=== PATIENT | male | born 1965 | race Caucasian/White ===

== ENCOUNTER 2020-09-25 21:52 | Observation (INO) | payer OTHER, SELFPAY ==
--- NOTE | ~2020-09-25 | XR_ITS ---
EXAMINATION: XR small bowel follow through EXAM DATE: 09/26/2020 18:25 INDICATION: Small bowel dilation and wall thickening . Nausea and vomiting. Possible allergic reactio n or enteritis. Abnormal small bowel on CT scan. TECHNIQUE: Grape Pruner radiograph was acquired. Barium was administered for small bowel exam performed by radiologist Laz Bhatt M.D.. Spot images of the terminal ileum were acquired. Pulsed dose reductio n fluoroscopy was used with fluoroscopic time of 0.2 minutes. The DAP for this procedure was 1.4 Gyc m2. A total of 33 images obtained for the exam. Correlation is made to CT 3 a.m. same day. FINDINGS: Grape Pruner image demonstrates bilateral nephrolithiasis and cholecystectomy clips. There is smal l duodenal diverticulum. Ileal and jejunal fold patterns are normal, no evidence of wall thickening o r mucosal abnormality. There is no small bowel wall thickening or mass effect displacing small bowel . There are no intraluminal filling defects identified. There is no small bowel dilation. Terminal ileum is normal in appearance. Contrast reached the colon 45. IMPRESSION: Small duodenal diverticulum. Otherwise unremarkable exam, which could indicate resolution of previous enteritis or angioedema. Reviewed, dictated and finalized at location A. IMPRESSION: Small duodenal diverticulum. Otherwise unremarkable exam, which cou ld indicate resolution of previous enteritis or angioedema.
--- NOTE | ~2020-09-25 | CT_ITS ---
EXAMINATION: CT abdomen pelvis wo con DATE: 09/26/2020 03:24 INDICATION: Abdominal pain TECHNIQUE: Computed tomography (CT) of the abdomen and pelvis was performed without intravenous contr ast. The dose-length product (DLP) was 536.95 mGy-cm. Automated exposure control and iterative recons truction technique were employed. COMPARISON: 11/16/2017 FINDINGS: Minimal dependent atelectasis is present in the lung bases. The heart size is normal. A sta ble 3 mm subpleural nodule of the left lower lobe is consistent with old granulomatous disease. The g allbladder is surgically absent. The liver, spleen, pancreas, and adrenal glands are normal. There ar e multiple bilateral nonobstructing stones of the kidneys. The largest measures 8 mm on the left. No stones are present in the ureters or bladder. There is no hydronephrosis or hydroureter. No pathologi raul enlarged abdominal or pelvic lymph nodes are identified. There is no free intraperitoneal gas o r evidence of bowel obstruction. There are mildly dilated loops of small bowel in the left abdomen wh ich appear to have associated wall thickening. 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 There is mild lumbar spondylosis. There is mild ci rcumferential wall thickening of the urinary bladder. IMPRESSION: 1. No CT correlate for the patient's symptoms. 2. Bilateral nonobstructing nephrolithiasis. 3. Mild circumferential wall thickening of the urinary bladder, likely chronic outlet obstruction giv en normal urinalysis. 4. Mildly dilated small bowel with apparent wall thickening. Finding is nonspecific with a broad diff erential including drug reaction, angioedema, enteritis, or an infiltrative process such as lymphoma. Small bowel follow-through is recommended. These findings and recommendations were discussed with Judy weir RN on [facility] at 1043 hours on 09/26/2020. Reviewed, dictated and finalized at location B. IMPRESSION: 1. No CT correlate for the patient's symptoms. 2. Bilateral nonobstructing nephrolithiasis. 3. Mild circumferential wall thickening of the urinary bladder, likely chronic outlet obstruction given normal urinalysis. 4. Mildly dilated small bowel with apparent wall thickening. Finding is nonspec ific with a broad differential including drug reaction, angioedema, enteritis, or an infiltrative process such as lymphoma. Small bowel follow-through is larry mmended. These findings and recommendations were discussed with GAEL Daniels on [facility] at 1043 hours on 09/26/2020.
[2020-09-25 21:57] VITALS: BP 103/67; PULSE 114; RESP 16; TEMP 36.8; O2SAT 97
[2020-09-25 22:11] VITALS: BP 103/67; PULSE 113; RESP 22; O2SAT 98
--- NOTE | 2020-09-25 22:20 | ED.ALLEREA ---
HPI - Allergic Reaction General Chief complaint: Allergic Reaction <Tomi Gutierrez MD - Last Filed: 09/25/20 23:45> Stated complaint: ALLERGIC REACTION, RASH <Tomi Gutierrez MD - Last Filed: 09/25/20 23:45> Time Seen by Provider: 09/25/20 21:58 <Tomi Gutierrez MD - Last Filed: 09/25/20 23:45> Source: patient and family <Tomi Gutierrez MD - Last Filed: 09/25/20 23:45> Limitations: no limitations <Tomi Gutierrez MD - Last Filed: 09/25/20 23:45> History of Present Illness HPI narrative: 54-year-old male Patient has had a history previously of getting hives sometimes in response to medications which are on his allergy list He reports a 1 day history of nausea vomiting and diarrhea This evening he started to experience flushing and generalized pruritus He does not really know what triggered it He took a hot shower to try and alleviate the itching and became lightheaded His tried him with an EpiPen and he came to the hospital The rash and itching are much improved but not gone He does not have any wheezing or shortness of breath and no stridor, he had been a little hoarse previously from vomiting <Tomi Gutierrez MD - Last Filed: 09/25/20 23:45> Related Data Home medications: Home Medications Medication Instructions Recorded Confirmed mirabegron 25 mg tablet,extended 25 mg PO DAILY 05/02/20 09/01/20 release 24 hr cholecalciferol (vitamin D3) 25 25 mcg PO DAILY 09/01/20 09/01/20 mcg (1,000 unit) capsule omega 3-efw-xki-fish oil 1,200 mg 3 cap PO DAILY cap 09/01/20 09/01/20 (144 mg-216 mg) capsule <Tomi Gutierrez MD - Last Filed: 09/25/20 23:45> Allergies/adverse reactions: Allergies Allergy/AdvReac Type Severity Reaction Status Date / Time propoxyphene Allergy Intermediate HIVES, Verified 09/25/20 22:09 ITCHING chloramphenicol Allergy Unknown AN Verified 09/25/20 22:09 ciprofloxacin AdvReac Severe HIVES Verified 09/25/20 22:09 Penicillins AdvReac Unknown UNKNOWN-WAS Verified 09/25/20 22:09 AN CHLORAMPHENICOL NA SUCC Allergy Unknown AN Uncoded 09/25/20 22:09 LOPERAMIDE HCL AdvReac Unknown HIVES Uncoded 09/25/20 22:09 <Tomi Gutierrez MD - Last Filed: 09/25/20 23:45> Review of Systems Review of Systems: All systems reviewed & are unremarkable except as noted in HPI and below <Tomi Gutierrez MD - Last Filed: 09/25/20 23:45> Constitutional: Constitutional: Reports no additional constitutional complaints, Denies chills, Reports fatigue, Denies fever(s), Denies headache(s) and Reports weakness <Tomi Gutierrez MD - Last Filed: 09/25/20 23:45> Eyes: Eyes: Reports no additional eye complaints and Denies change in vision <Tomi Gutierrez MD - Last Filed: 09/25/20 23:45> ENT: Reports dizziness, Denies headache(s) and Denies sore throat <Tomi Gutierrez MD - Last Filed: 09/25/20 23:45> Cardiovascular: Cardiovascular: Denies chest pain and Denies dyspnea <Tomi Gutierrez MD - Last Filed: 09/25/20 23:45> Respiratory: Respiratory: Denies cough, Denies dyspnea and Denies wheezing <Tomi Gutierrez MD - Last Filed: 09/25/20 23:45> Gastrointestinal: Gastrointestinal: Denies abdominal pain, Reports diarrhea, Reports nausea and Reports vomiting <Tomi Gutierrez MD - Last Filed: 09/25/20 23:45> Genitourinary: Genitourinary: Denies dysuria and Denies urinary frequency <Tomi Gutierrez MD - Last Filed: 09/25/20 23:45> Musculoskeletal: Musculoskeletal: Denies deformity, Denies arthralgias, Denies joint swelling and Denies numbness <Tomi Gutierrez MD - Last Filed: 09/25/20 23:45> Integumentary/Breasts: Skin/Breast: Reports pruritus, Reports erythema, Reports rash and Denies wounds <Tomi Gutierrez MD - Last Filed: 09/25/20 23:45> Neurologic: Denies headache(s), Denies focal weakness and Denies numbness <Tomi Gutierrez MD - Last Filed: 09/25/20 23:45> Psychiatric: Psychiatric: Reports no additional psychia
[2020-09-25] MEDS: LACTATED RINGERS 1,000 ML 999 ML IV CONT (22:27)
[2020-09-25] MEDS: FAMOTIDINE 20 MG/2 ML VIAL 40 MG IV PUSH (22:47)
[2020-09-25 22:57] VITALS: BP 114/78; PULSE 117; RESP 23; O2SAT 100
[2020-09-25 23:02] VITALS: BP 105/70; PULSE 112; RESP 24; O2SAT 98
[2020-09-25] MEDS: DOXEPIN HCL 10 MG CAPSULE PO (23:15)
[2020-09-25 23:16] VITALS: BP 121/76; PULSE 115; RESP 20; O2SAT 100
[2020-09-26] MEDS: EPINEPHrine HCL INJ 1 MG/ML AMPUL 0.4 MG IM (00:49)
--- NOTE | 2020-09-26 01:22 | PC.NURSE ---
Pt unable to void at this time. Refusing straight catheter at this time. Urinal at bedside.
[2020-09-26] MEDS: SODIUM CHLORIDE 0.9% IV 1,000 ML 999 ML IV CONT ×3 (01:23→04:48)
[2020-09-26 01:34] VITALS: PULSE 112; RESP 23; O2SAT 95
[2020-09-26 01:36] LABS: Basophils Percent Auto 0.2 % (0.2-1.2); Eosinophils Percent Auto 0.1 % (0-4.4); Hematocrit 46.5 % (42.0-52.0); Hemoglobin 15.7 g/dL (14.0-18.0); Immature Granulocyte Absolute 0.08 K/mm3 (0.00-0.031); Immature Granulocyte Percent A 0.4 % (0-0.5); Lymphocytes Absolute Auto 2.75 K/mm3 (0.9-3.2); Lymphocytes Percent Auto 15.1 % (18.3-44.2); Mean Corpuscular HGB Conc 33.8 g/dl (32-36); Mean Corpuscular Hemoglobin 29.8 pg (26-34); Mean Corpuscular Volume 88.4 fl (80-100); Mean Platelet Volume 10.7 fl (7.4-10.4); Monocytes Absolute Auto 0.5 K/mm3 (0.1-0.6); Monocytes Percent Auto 2.7 % (2.6-8.5); Neutrophils Absolute Auto 14.9 K/mm3 (1.3-6.7); Neutrophils Percent Auto 81.5 % (45.5-73.1); Platelet Count Result 232 k/mm3 (150-375); Red Blood Count 5.26 M/mm3 (4.6-6.20); Red Cell Distribution Width 12.4 % (11.5-14.5); White Blood Count 18.3 K/mm3 (4.5-10.0)
[2020-09-26 01:46] LABS: Alanine Aminotransferase 24 U/L (4-50); Albumin Level 3.9 g/dL (3.5-5.1); Alkaline Phosphatase 75 U/L (38-126); Anion Gap 14 mmol/L (8-16); Aspartate Amino Transferase 25 U/L (17-59); Bilirubin,Total 0.8 mg/dL (0.2-1.3); Blood Urea Nitrogen 19 mg/dL (9-20); Calcium 8.5 mg/dL (8.4-10.2); Carbon Dioxide 18 mmol/L (22-30); Chloride 106 mmol/L (98-107); Estimated CRCL calculation 77 ml/min; Estimated Glomerular Filt Rate > 60; Glucose 263 mg/dL (65-110); Potassium 3.2 mmol/L (3.4-5.0); Sodium 138 mmol/L (137-145)
[2020-09-26 02:44] LABS: Lipase 224 U/L (23-300)
[2020-09-26 02:56] VITALS: BP 100/62; PULSE 102; RESP 20; O2SAT 93
[2020-09-26 03:04] LABS: Beta-Hydroxybutyrate/Acetoacetate 0.81 mmol/L (0.02-0.27)
[2020-09-26 03:06] LABS: Add Urine Microscopic? YES; Appearance Urine Clear (Clear); Bilirubin Urine Negative (Negative); Blood Urine Negative (Negative); Color Urine Yellow (Yellow); Glucose Urine UA 3+ mg/dL (Negative); Ketones Urine 1+ mg/dL (Negative); Leukocyte Esterase Ur Negative LEU/UL (Negative); Mucus Urine Rare /lpf; Nitrate Urine Negative (Negative); Protein Urine Negative (Negative); Specific Grav Ur 1.011 (1.001-1.035); Urobilinogen Urine Negative mg/dL (<2.0); WBC Urine 0-3 /hpf
[2020-09-26] MEDS: POTASSIUM CHLORIDE 20 MEQ TABLET PO (04:49)
[2020-09-26] MEDS: INSULIN ASPART (*BKC) 100 UNITS/ML SUB-Q (04:52)
[2020-09-26 05:08] LABS: Magnesium 1.2 mg/dL (1.6-2.3)
[2020-09-26] MEDS: MAGNESIUM SULF 2 GM/WATER 50ML 2 GM/50 ML BAG IVPB (05:17)
[2020-09-26 05:20] VITALS: BP 96/64; PULSE 91; RESP 18; O2SAT 93
--- NOTE | 2020-09-26 05:25 | PC.NURSE ---
ERP aware of pt blood pressure
[2020-09-26 06:00] VITALS: BP 97/68; PULSE 75; RESP 18; TEMP 36.3; O2SAT 95
[2020-09-26 06:02] LABS: Lactic Acid Reflex 1.3 mmol/L (0.7-2.1)
[2020-09-26 06:10] LABS: Glucose Point of Care 236 mg/dl (65-105)
[2020-09-26] MEDS: SODIUM CHLORIDE 0.9% IV 1,000 ML 125 ML IV CONT ×3 (06:24→22:35)
--- NOTE | 2020-09-26 06:31 | ADMGEN ---
This patient, Mariano Mitchell, was admitted to [facility] Surg Room 331-02. Patient/family oriented to hospital policies and general routines including ID bracelet, bed and alarms, visiting hours, pain management, procedures, bathroom and other care routines, personal items, smoking policy, room service/diet, and visiting hours. Information on how to activate the Rapid Response Team has been discussed. Patient/Family are encouraged to report perceived risks to care and to ask questions if they do not understand what they are told or what they should do.
[2020-09-26] MEDS: ROSUVASTATIN 10 MG TABLET PO (11:32)
[2020-09-26] MEDS: PRAMIPEXOLE 0.5 MG TABLET 1.5 MG PO (11:32)
[2020-09-26] MEDS: PARoxetine 20 MG TABLET 60 MG PO (11:32)
[2020-09-26] MEDS: PANTOPRAZOLE SOD SESQUIHYDRATE 20 MG TAB PO (11:32)
[2020-09-26] MEDS: predniSONE 20 MG TABLET 40 MG PO (11:32)
[2020-09-26] MEDS: MIRABEGRON 25 MG ER TABLET PO (11:32)
[2020-09-26 12:15] LABS: Magnesium 1.8 mg/dL (1.6-2.3); Potassium 3.8 mmol/L (3.4-5.0)
[2020-09-26 13:00] LABS: Glucose Point of Care 183 mg/dl (65-105)
[2020-09-26 14:00] VITALS: BP 108/76; PULSE 68; RESP 18; TEMP 36.1; O2SAT 95
--- NOTE | 2020-09-26 14:15 | PM.IMHP ---
H&P: HPI History of Present Illness Date/Time: 09/26/20 14:15 Chief Complaint: Rash Narrative: date of admission: 09/25/2020 date of service: 09/26/2020 Mariano Mitchell is a 55-year-old with a history of Hyperlipidemia, anxiety, narcolepsy, type 2 diabetes mellitus, multiple medication allergies and history of anaphylaxis over 5 years ago who presented to the emergency department on 09/25/2020 with complaints of a rash. 2 days prior to presentation, he developed vomiting and diarrhea. he cannot recall what he had to be eat but denied any anything out of the ordinary. Yesterday, he developed pruritus and noticed a red rash covering his trunk, arms, and heading up towards his face. Did not have any rash on the legs. Described the rash as bright red and confluent on the trunk with macules on the arms. The rash was not raised. He felt that he was heading in the direction of having a more serious reaction and thought he might develop some tongue swelling and difficulty breathing, so he used his EpiPen. He began to feel better after this. He denied itchy throat, difficulty swallowing, dyspnea, facial swelling or lip swelling. He got in a warm shower hoping this would help his rash but it did not, therefore he summoned EMS. Upon presentation to the emergency department, he was tachycardic with additional vital signs stable, white blood cell count elevated at 18.3, additional CBC unremarkable, potassium low at 3.2 with additional electrolytes stable, CT abdomen/ pelvis showed mildly dilated small bowel with apparent wall thickening. Upon my evaluation, he is feeling much better. He believes his rash is resolved entirely and he is no longer itching. He feels a bit groggy and weak. He is no longer endorsing vomiting or diarrhea. Denies abdominal pain. Denies taking any new medications, any other drug use, changes in his diet. Notes that he changed soap about 2 months ago. 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 He is established with an web merchant at [facility] but has not been seen in some time since he has had no issues for several years. He is being admitted for observation. supervising physician for this history and physical is Dr. Kofi Hampton. Review of Systems Review of Systems: Narrative: All systems reviewed with pertinent positives and negatives as per HPI. Additionally, patient denies abdominal pain. He no longer has nausea. Prior to 2 days ago he had been having regular bowel movements without melena or hematochezia. No shortness of breath or chest pain. No cough. Denies urinary symptoms With the exception of urinary urgency which has improved with Mirabegron. He does endorse frequent GERD symptoms. Denies allergy symptoms including watery or itchy eyes, sinus congestion, rhinorrhea. No dysphagia. PMF Past Medical History Medical History (Updated 09/26/20 @ 15:03 by Makayla Fong PA-C) Blood type AB- Mixed hyperlipidemia Narcolepsy Nephrolithiasis Obsessive compulsive disorder Overweight (BMI 25.0-29.9) Restless leg syndrome Type 2 diabetes mellitus Surgical History Surgical History Hx of cholecystectomy Family History Family History (Updated 09/26/20 @ 14:52 by Makayla Fong PA-C) Father Malignant neoplasm of prostate Lung cancer Mother Cerebrovascular accident Other Diabetes mellitus Social History Social History (Updated 09/26/20 @ 14:53 by Makayla Fong PA-C) Social History: Mr. Mitchell lives at home with his and son. He is independent in his daily activities. He is retired from working with a [employer]. His primary care provider is Dr. Lee. He would like his , Brooke, to be his surrogate decision maker and would like to be a full code. Smoking status: Never smoker Second hand tobacco smoke exposure: No Alcohol intake: never Substance use:
[2020-09-26 18:40] LABS: Glucose Point of Care 173 mg/dl (65-105)
[2020-09-26] MEDS: busPIRone HCL 5 MG TABLET 15 MG PO (18:48)
[2020-09-26 21:50] VITALS: BP 101/50; PULSE 90; RESP 17; TEMP 36.9; O2SAT 95
[2020-09-26 22:59] LABS: Glucose Point of Care 200 mg/dl (65-105)
[2020-09-27 05:44] VITALS: BP 100/61; PULSE 56; RESP 18; TEMP 36.3; O2SAT 96
[2020-09-27 07:51] LABS: Alanine Aminotransferase 20 U/L (4-50); Alkaline Phosphatase 50 U/L (38-126); Anion Gap 5 mmol/L (8-16); Aspartate Amino Transferase 20 U/L (17-59); Bilirubin,Total 0.5 mg/dL (0.2-1.3); Blood Urea Nitrogen 9 mg/dL (9-20); Calcium 8.1 mg/dL (8.4-10.2); Carbon Dioxide 23 mmol/L (22-30); Chloride 113 mmol/L (98-107); Estimated CRCL calculation 97 ml/min; Estimated Glomerular Filt Rate > 60; Glucose 115 mg/dL (65-110); Magnesium 1.9 mg/dL (1.6-2.3); Potassium 3.2 mmol/L (3.4-5.0); Sodium 141 mmol/L (137-145)
[2020-09-27 08:00] VITALS: O2SAT 97
[2020-09-27] MEDS: busPIRone HCL 5 MG TABLET 15 MG PO (08:21)
[2020-09-27] MEDS: PRAMIPEXOLE 0.5 MG TABLET 1.5 MG PO (08:21)
[2020-09-27] MEDS: SODIUM CHLORIDE 0.9% IV 1,000 ML 125 ML IV CONT (08:21)
[2020-09-27] MEDS: ROSUVASTATIN 10 MG TABLET PO (08:22)
[2020-09-27] MEDS: predniSONE 20 MG TABLET 40 MG PO (08:22)
[2020-09-27] MEDS: PARoxetine 20 MG TABLET 60 MG PO (08:22)
[2020-09-27] MEDS: MIRABEGRON 25 MG ER TABLET PO (08:22)
[2020-09-27] MEDS: PANTOPRAZOLE SOD SESQUIHYDRATE 20 MG TAB PO (08:22)
[2020-09-27] MEDS: ENOXAPARIN 40 MG/0.4 ML SYRINGE SUB-Q (08:23)
[2020-09-27 08:29] LABS: Glucose Point of Care 110 mg/dl (65-105)
[2020-09-27 09:23] LABS: Basophils Percent Auto 0.1 % (0.2-1.2); Eosinophils Absolute Auto 0.2 K/mm3 (0-0.3); Eosinophils Percent Auto 2.8 % (0-4.4); Hematocrit 37.1 % (42.0-52.0); Hemoglobin 12.2 g/dL (14.0-18.0); Immature Granulocyte Absolute 0.03 K/mm3 (0.00-0.031); Immature Granulocyte Percent A 0.4 % (0-0.5); Immature Platelet Fraction Pct 4.2 % (0.9-11.2); Lymphocytes Absolute Auto 1.74 K/mm3 (0.9-3.2); Lymphocytes Percent Auto 23.3 % (18.3-44.2); Mean Corpuscular HGB Conc 32.9 g/dl (32-36); Mean Corpuscular Hemoglobin 30.2 pg (26-34); Mean Corpuscular Volume 91.8 fl (80-100); Mean Platelet Volume 10.8 fl (7.4-10.4); Monocytes Absolute Auto 0.4 K/mm3 (0.1-0.6); Monocytes Percent Auto 5.9 % (2.6-8.5); Neutrophils Absolute Auto 5.1 K/mm3 (1.3-6.7); Neutrophils Percent Auto 67.5 % (45.5-73.1); Platelet Count Result 124 k/mm3 (150-375); Red Blood Count 4.04 M/mm3 (4.6-6.20); White Blood Count 7.5 K/mm3 (4.5-10.0)
[2020-09-27] MEDS: MAGNESIUM OXIDE 400 MG TABLET PO (10:31)
[2020-09-27] MEDS: POTASSIUM CHLORIDE 20 MEQ TABLET.ER 40 MEQ PO (10:31)
[2020-09-27 11:10] VITALS: O2SAT 93
[2020-09-27 12:25] LABS: Glucose Point of Care 171 mg/dl (65-105)
--- NOTE | 2020-09-27 13:03 | P.DS_ITS ---
DS: Admitting Diagnosis Admitting Diagnosis allergic reaction DS: Discharge Diagnosis Discharge Diagnosis (1) Rash: Code(s): R21 - Rash and other nonspecific skin eruption Status: Acute Assessment and Plan: Reportedly had diffuse red rash covering trunk and arms, resolved upon my evaluation * suspected to be related to allergic reaction given his history and improvement with epinephrine * no lip swelling, tongue swelling, facial swelling, SOB * received Decadron in ED and started on p.o. prednisone. Will continue prednisone taper. * benadryl p.r.n. * no obvious trigger for reaction. He will need to follow-up with his bus info consultant * epi pen refill provided (2) Abnormal CT of the abdomen: Code(s): R93.5 - Abnormal findings on diagnostic imaging of other abdominal regions, including retroperitoneum Status: Acute Assessment and Plan: CT scan showed mildly dilated small bowel with apparent wall thickening. Nonspecific finding could indicate drug reaction, angioedema, enteritis. * recommendations for follow-up with small-bowel follow-through which showed small duodenal diverticulum, otherwise unremarkable. * He was asymptomatic and able to tolerate a regular diet (3) Nausea vomiting and diarrhea: Code(s): R11.2 - Nausea with vomiting, unspecified; R19.7 - Diarrhea, unspecified Status: Acute Assessment and Plan: Resolved. * No findings to suggest acute infection. * Unremarkable SBFT as above * Diet slowly advanced. He was able to tolerate regular diet. (4) Dehydration: Code(s): E86.0 - Dehydration Status: Acute Assessment and Plan: Secondary to above * He was rehydrated with IV fluids * Tolerated oral fluid intake (5) Electrolyte imbalance: Code(s): E87.8 - Other disorders of electrolyte and fluid balance, not elsewhere classified Status: Acute Assessment and Plan: Potassium and mag low at presentation due to N/V * Potassium and magnesium levels were supplemented. * Mag improved. Potassium slightly low 3.2 on day of discharge, likely from poor PO intake as he was on CLD. Potassium was supplemented with 40 mEq KCl. Anticipate potassium levels to improve back to patient's baseline as diet was advanced. (6) Leukocytosis: Code(s): D72.829 - Elevated white blood cell count, unspecified Status: Acute Assessment and Plan: WBC 18.3 at presentation, improved to 7.5. * May have been reactive to stress response/allergic reaction * Possibly related to IV steroids (CBC was performed following decadron administration) * No signs/symptoms to suggest infection (7) Type 2 diabetes mellitus without complications: Code(s): E11.9 - Type 2 diabetes mellitus without complications Status: Acute Assessment and Plan: A1c is 7.0. * Accu-Cheks, sliding scale insulin, and hypoglycemia protocol initiated during hospital stay * Blood sugars were fairly well controlled even with steroids. * Monitor glucose at home while on steroid taper DS: Summary Hospital Course Hospital Course: date of admission: 09/25/2020 date of discharge: 09/27/2020 Mariano Mitchell is a 55-year-old with a history of Hyperlipidemia, anxiety, narcolepsy, type 2 diabetes mellitus, multiple medication allergies and history of anaphylaxis over 5 years ago who presented to the emergency department on 09/25/2020 with complaints of diffuse red rash
--- NOTE | 2020-09-27 13:03 | PM.DS ---
DS: Admitting Diagnosis Admitting Diagnosis allergic reaction DS: Discharge Diagnosis Discharge Diagnosis (1) Rash: Code(s): R21 - Rash and other nonspecific skin eruption Status: Acute Assessment and Plan: Reportedly had diffuse red rash covering trunk and arms, resolved upon my evaluation suspected to be related to allergic reaction given his history and improvement with epinephrine no lip swelling, tongue swelling, facial swelling, SOB received Decadron in ED and started on p.o. prednisone. Will continue prednisone taper. benadryl p.r.n. no obvious trigger for reaction. He will need to follow-up with his cardiopulmonary technician and eeg tech epi pen refill provided (2) Abnormal CT of the abdomen: Code(s): R93.5 - Abnormal findings on diagnostic imaging of other abdominal regions, including retroperitoneum Status: Acute Assessment and Plan: CT scan showed mildly dilated small bowel with apparent wall thickening. Nonspecific finding could indicate drug reaction, angioedema, enteritis. recommendations for follow-up with small-bowel follow-through which showed small duodenal diverticulum, otherwise unremarkable. He was asymptomatic and able to tolerate a regular diet (3) Nausea vomiting and diarrhea: Code(s): R11.2 - Nausea with vomiting, unspecified; R19.7 - Diarrhea, unspecified Status: Acute Assessment and Plan: Resolved. No findings to suggest acute infection. Unremarkable SBFT as above Diet slowly advanced. He was able to tolerate regular diet. (4) Dehydration: Code(s): E86.0 - Dehydration Status: Acute Assessment and Plan: Secondary to above He was rehydrated with IV fluids Tolerated oral fluid intake (5) Electrolyte imbalance: Code(s): E87.8 - Other disorders of electrolyte and fluid balance, not elsewhere classified Status: Acute Assessment and Plan: Potassium and mag low at presentation due to N/V Potassium and magnesium levels were supplemented. Mag improved. Potassium slightly low 3.2 on day of discharge, likely from poor PO intake as he was on CLD. Potassium was supplemented with 40 mEq KCl. Anticipate potassium levels to improve back to patient's baseline as diet was advanced. (6) Leukocytosis: Code(s): D72.829 - Elevated white blood cell count, unspecified Status: Acute Assessment and Plan: WBC 18.3 at presentation, improved to 7.5. May have been reactive to stress response/allergic reaction Possibly related to IV steroids (CBC was performed following decadron administration) No signs/symptoms to suggest infection (7) Type 2 diabetes mellitus without complications: Code(s): E11.9 - Type 2 diabetes mellitus without complications Status: Acute Assessment and Plan: A1c is 7.0. Accu-Cheks, sliding scale insulin, and hypoglycemia protocol initiated during hospital stay Blood sugars were fairly well controlled even with steroids. Monitor glucose at home while on steroid taper DS: Summary Hospital Course Hospital Course: date of admission: 09/25/2020 date of discharge: 09/27/2020 Mariano Mitchell is a 55-year-old with a history of Hyperlipidemia, anxiety, narcolepsy, type 2 diabetes mellitus, multiple medication allergies and history of anaphylaxis over 5 years ago who presented to the emergency department on 09/25/2020 with complaints of diffuse red rash covering the trunk and arms.He had used his EpiPen prior to presentation. Upon presentation to the emergency department, he was tachycardic with additional vital signs stable, white blood cell count elevated at 18.3, additional CBC unremarkable, potassium low at 3.2 with additional electrolytes stable, CT abdomen/ pelvis showed mildly dilated small bowel with apparent wall thickening. He was admitted to the hospitalist service for further evaluation and management. Please
[2020-09-27 14:00] VITALS: BP 115/64; PULSE 66; RESP 14; TEMP 37.1; O2SAT 96
== END 2020-09-27 15:17 | disposition home or self-care (01) ==
LOC: ANHED 09-26 04:44 → ANH3MEDSUR 09-26 05:05
PROVIDERS: Physician Assistant; Admitting Provider Internal Medicine; Emergency Provider Emergency Medicine; PCP Family Medicine; Visit Provider Internal Medicine
DX: R21 Rash and other nonspecific skin eruption (principal); E86.0 Dehydration; E78.5 Hyperlipidemia, unspecified; E87.8 Other disorders of electrolyte and fluid balance, not elsewhere classified; E11.9 Type 2 diabetes mellitus without complications; D72.829 Elevated white blood cell count, unspecified; R93.5 Abnormal findings on diagnostic imaging of other abdominal regions, including retroperitoneum; Z79.84 Long term (current) use of oral hypoglycemic drugs
CPT/HCPCS: 36415; 51701; 74176; 74250; 80053; 81001; 82010; 82948; 83036; 83605; 83690; 83735; 84132; 85025; 85055; 96360; 96361; 96365; 96372; 96374; 96375; 99285; A9270; G0378; J0171; J1100; J1650; J1815; J3475; J7030; J7120; J7512

== ENCOUNTER 2021-10-06 14:43 | Outpatient (CLI) | payer OTHER, SELFPAY ==
--- NOTE | ~2021-10-06 | US_ITS ---
US scrotum doppler INDICATION: Scrotal mass TECHNIQUE: Testicular sonogram utilizing grayscale and color Doppler FINDINGS: The testes are normal in size and appearance. No focal lesions are seen. The right testes measures 4.9 x 2.4 x 3 cm centimeters, and the left testis measures 4.6 x 2.5 x 2.9 cm cm. There is n ormal vascular flow to both testes. There is a small left extratesticular cysts, possibly epididymal measuring 5 mm. There is no varicocele or hydrocele. IMPRESSION: 1. Small left extratesticular cyst measuring 5 mm, possibly epididymal. Reviewed, dictated and finalized at location A.
== END 2021-10-06 14:44 | disposition home or self-care (01) ==
PROVIDERS: PCP Family Medicine; Visit Provider Nurse Practitioner Adult Health
DX: N50.89 Other specified disorders of the male genital organs (principal)
CPT/HCPCS: 76870; 93976

== ENCOUNTER 2022-12-20 10:51 | Day surgery (SDC) | payer OTHER, SELFPAY ==
[2022-12-15 13:40] VITALS: BMI 27.3
--- NOTE | 2022-12-17 14:50 | PM.HPGS ---
History of Present Illness History of Present Illness Consent: Risks, benefits, and alternatives have been discussed and questions answered. Patient agrees to proceed with procedure. Chief complaint: Benign Neoplasm of Colon, HX Colon Polyps Narrative: Mariano Mitchell is a 57 year old male who was referred for colon cancer screening. Four years ago he had a polyp removed. Also his father and uncle have had colon cancer. Review of Systems Review of Systems: All systems reviewed & are unremarkable except as noted in HPI and below PMFSH Past Medical History Medical History Blood type AB- Mixed hyperlipidemia Narcolepsy Nephrolithiasis Obsessive compulsive disorder Restless leg syndrome Trigger finger of right thumb Type 2 diabetes mellitus Surgical History Surgical History Hx of cholecystectomy Family History Family History Father Malignant neoplasm of prostate Lung cancer Mother Cerebrovascular accident Other Diabetes mellitus Social History Social History Social History: Mr. Mitchell lives at home with his and son. He is independent in his daily activities. He is retired from working with a [employer]. His primary care provider is Dr. Lee. He would like his , Brooke, to be his surrogate decision maker and would like to be a full code. Smoking status: Never smoker Second hand tobacco smoke exposure: No Alcohol intake: never Substance use: never Substance use type: does not use Lack of Transportation: No Lack of Food: Never True Current Housing: I Have Housing Concerned About Future Housing: No Difficulty Paying Gas/Electric Bills: No Difficulty Paying for Meds: No Currently Unemployed: No Education: Bachelor's Degree Difficulty w/ Childcare or Family Care: No Living arrangements: with family Gender identity (if verbalized by the patient): Male Spiritual care concerns: No Meds Home Medications and Allergies Home Medications Medication Instructions Recorded Confirmed Type cholecalciferol (vitamin D3) 25 25 mcg PO DAILY 09/01/20 12/20/22 History mcg (1,000 unit) capsule omega 9-nsd-obh-fish oil 1,200 mg 3 cap PO DAILY 09/01/20 12/20/22 History (144 mg-216 mg) capsule paroxetine HCl 40 mg tablet (Paxil) 60 mg PO DAILY 09/26/20 12/20/22 History diphenhydramine HCl 25 mg capsule 25 mg PO Q6H PRN Itching #30 caps 09/27/20 12/20/22 Rx buspirone 15 mg tablet 15 mg PO BID #180 tabs 01/08/21 12/20/22 Rx rosuvastatin 10 mg tablet (Crestor) 10 mg PO DAILY #90 tabs 01/04/22 12/20/22 Rx epinephrine 0.3 mg/0.3 mL 0.3 mg (0.3 mL) IM ONCE PRN 01/12/22 12/20/22 Rx injection, auto-injector (EpiPen anaphylaxis #2 [id number]) metformin 1,000 mg tablet See Rx Instructions .Route 02/15/22 12/20/22 Rx .COMPLEX #180 tabs ondansetron HCl 8 mg tablet 8 mg PO Q8H PRN nausea and 05/12/22 12/20/22 Rx vomiting #20 tabs omeprazole 20 mg capsule,delayed 20 mg PO DAILY #90 caps 07/14/22 12/20/22 Rx release modafinil 200 mg tablet 200 mg PO QAM #90 tabs 08/10/22 12/20/22 Rx sitagliptin phosphate 100 mg 100 mg PO DAILY #90 tabs 09/16/22 12/20/22 Rx tablet (Januvia) pramipexole 1 mg tablet See Rx Instructions .Route 10/25/22 12/20/22 Rx .COMPLEX #135 tabs dextroamphetamine-amphetamine 30 15 mg PO DAILY 12/15/22 12/20/22 History mg tablet (Adderall) oxybutynin chloride 15 mg 15 mg PO DAILY 12/15/22 12/20/22 History tablet,extended release 24 hr Allergies Allergy/AdvReac Type Severity Reaction Status Date / Time propoxyphene Allergy Intermediate HIVES, Verified 12/20/22 12:06 ITCHING chloramphenicol Allergy Unknown AN Verified 12/20/22 12:06 INFANT ciprofloxacin AdvReac Severe HIVES Verified 12/20/22 12:06 Penicilli
[2022-12-20 12:08] VITALS: BP 101/75; PULSE 63; RESP 16; TEMP 36.9; O2SAT 100
[2022-12-20] MEDS: LACTATED RINGERS 1,000 ML 150 ML IV CONT (12:18)
[2022-12-20 12:27] LABS: Glucose Point of Care 129 mg/dl (65-105)
--- NOTE | 2022-12-20 12:39 | WPDANESEPPF ---
Anes - Initial Pre Proc Eval Procedure: Operation Date: 12/20/22 13:30 Proposed Procedures p Colonoscopy - Ron Richards MD Date/Time: 12/20/22 12:39 Surgeon: Ron Richards MD Pre Op Diagnosis: Benign Neoplasm of Colon, HX Colon Polyps Patient Data Age: 57 Gender: M Height: 1.73 m Weight: 78.8 kg Last Vital Signs Temp 36.9 C 12/20/22 12:08 Pulse 63 12/20/22 12:08 Resp 16 12/20/22 12:08 BP 101/75 12/20/22 12:08 Pulse Ox 100 12/20/22 12:08 O2 Del Method Room Air 12/20/22 12:08 Allergies Allergy/AdvReac Type Severity Reaction Status Date / Time propoxyphene Allergy Intermediate HIVES, Verified 12/20/22 12:06 ITCHING chloramphenicol Allergy Unknown AN Verified 12/20/22 12:06 INFANT ciprofloxacin AdvReac Severe HIVES Verified 12/20/22 12:06 Penicillins AdvReac Unknown UNKNOWN-WAS Verified 12/20/22 12:06 AN CHLORAMPHENICOL NA SUCC Allergy Unknown AN Uncoded 12/20/22 12:06 INFANT LOPERAMIDE HCL AdvReac Unknown HIVES Uncoded 12/20/22 12:06 Home Medications Medication Instructions Recorded Confirmed Type cholecalciferol (vitamin D3) 25 25 mcg PO DAILY 09/01/20 12/20/22 History mcg (1,000 unit) capsule omega 1-gww-dxg-fish oil 1,200 mg 3 cap PO DAILY 09/01/20 12/20/22 History (144 mg-216 mg) capsule paroxetine HCl 40 mg tablet (Paxil) 60 mg PO DAILY 09/26/20 12/20/22 History diphenhydramine HCl 25 mg capsule 25 mg PO Q6H PRN Itching #30 caps 09/27/20 12/20/22 Rx buspirone 15 mg tablet 15 mg PO BID #180 tabs 01/08/21 12/20/22 Rx rosuvastatin 10 mg tablet (Crestor) 10 mg PO DAILY #90 tabs 01/04/22 12/20/22 Rx epinephrine 0.3 mg/0.3 mL 0.3 mg (0.3 mL) IM ONCE PRN 01/12/22 12/20/22 Rx injection, auto-injector (EpiPen anaphylaxis #2 ea 2-Bib) metformin 1,000 mg tablet See Rx Instructions .Route 02/15/22 12/20/22 Rx .COMPLEX #180 tabs ondansetron HCl 8 mg tablet 8 mg PO Q8H PRN nausea and 05/12/22 12/20/22 Rx vomiting #20 tabs omeprazole 20 mg capsule,delayed 20 mg PO DAILY #90 caps 07/14/22 12/20/22 Rx release modafinil 200 mg tablet 200 mg PO QAM #90 tabs 08/10/22 12/20/22 Rx sitagliptin phosphate 100 mg 100 mg PO DAILY #90 tabs 09/16/22 12/20/22 Rx tablet (Januvia) pramipexole 1 mg tablet See Rx Instructions .Route 10/25/22 12/20/22 Rx .COMPLEX #135 tabs dextroamphetamine-amphetamine 30 15 mg PO DAILY 12/15/22 12/20/22 History mg tablet (Adderall) oxybutynin chloride 15 mg 15 mg PO DAILY 12/15/22 12/20/22 History tablet,extended release 24 hr Laboratory Tests 12/20/22 12:23 POC Capillary Glucose 129 H mg/dl (65-105) Patient hx anesthesia problems: none Family hx anesthesia problems: none Results Review: All pre-operative results and documents have been reviewed as part of the pre-operative evaluation. [facility] Past Medical History Medical History Blood type AB- Mixed hyperlipidemia Narcolepsy Nephrolithiasis Obsessive compulsive disorder Restless leg syndrome Trigger finger of right thumb Type 2 diabetes mellitus Surgical History Surgical History Hx of cholecystectomy Family History Family History Father Malignant neoplasm of prostate Lung cancer Mother Cerebrovascular accident Other Diabetes mellitus Social History Social History Social History: Mr. Mitchell lives at home with his and son. He is independent in his daily activities. He is retired from working with a [employer]. His primary care provider is Dr. Lee. He would like his , Brooke, to be his surrogate decision maker and would like to be a full code. Smoking status: Never smoker Second hand tobacco smoke exposure: No Alcohol intake: never Substance use:
[2022-12-20 13:35] VITALS: BP 108/69; PULSE 57; RESP 18; O2SAT 95
[2022-12-20 13:45] VITALS: BP 92/58; PULSE 72; RESP 20; O2SAT 96
--- NOTE | 2022-12-20 13:47 | WPDANESPN ---
Anes - Prog Note Post-Op Date/Time: 12/20/22 13:47 Cardiovascular status: normal Respiratory status: normal Airway patency: baseline Mental status: baseline Post-Op hydration status: normal Vital Signs: Last Vital Signs Temp 36.9 C 12/20/22 12:08 Pulse 57 L 12/20/22 13:35 Resp 18 12/20/22 13:35 BP 108/69 12/20/22 13:35 Pulse Ox 95 12/20/22 13:35 O2 Del Method Room Air 12/20/22 13:35 Pain Score (VAS): 0 I/O: Intake & Output 12/19/22 12/20/22 12/20/22 23:59 07:59 15:59 Intake Total 500 Balance 500 12/20/22 12:23 POC Capillary Glucose 129 H Patient Feedback: Patient satisfied with anesthetic care.
[2022-12-20 13:55] VITALS: BP 98/69; PULSE 71; RESP 18; O2SAT 98
== END 2022-12-20 14:20 | disposition home or self-care (01) ==
PROVIDERS: PCP Family Medicine; Visit Provider Internal Medicine Gastroenterology
PROC: 0DJD8ZZ Inspection of Lower Intestinal Tract, Via Natural or Artificial Opening Endoscopic (ICD-10-PCS; CPT 45378; principal; 2022-12-20 13:30)
DX: Z12.11 Encounter for screening for malignant neoplasm of colon (principal); Z86.010 Personal history of colon polyps; K57.30 Diverticulosis of large intestine without perforation or abscess without bleeding
CPT/HCPCS: 45378

== ENCOUNTER 2023-04-07 10:26 | Outpatient (CLI) | payer OTHER, SELFPAY ==
[2023-04-07 11:43] LABS: Influenza A QL RT-PCR Negative (Negative); Influenza B QL RT-PCR Negative (Negative); SARS-CoV-2 RNA PCR Positive (Negative)
== END 2023-04-07 10:27 | disposition home or self-care (01) ==
LOC: ANHLAB 10:27
PROVIDERS: PCP Family Medicine; Visit Provider Nurse Practitioner Family
DX: U07.1 COVID-19 (principal)
CPT/HCPCS: 87636

== ENCOUNTER 2024-05-05 08:42 | Observation (INO) | payer OTHER, SELFPAY ==
[2024-05-05] VITALS (17 sets, daily range): BP systolic 92–141; BP diastolic 55–98; PULSE 60–86; RESP 12–18; TEMP 36.3–36.7; O2SAT 90–100; BMI 26.4
[2024-05-05 09:03] LABS: Basophils Percent Auto 0.5 % (0.2-1.2); Eosinophils Absolute Auto 0.1 K/mm3 (0-0.3); Eosinophils Percent Auto 1.5 % (0-4.4); Hematocrit 45.6 % (42.0-52.0); Hemoglobin 15.4 g/dL (14.0-18.0); Immature Granulocyte Absolute 0.02 K/mm3 (0.00-0.031); Immature Granulocyte Percent A 0.3 % (0-0.5); Lymphocytes Absolute Auto 1.94 K/mm3 (0.9-3.2); Lymphocytes Percent Auto 31.3 % (18.3-44.2); Mean Corpuscular HGB Conc 33.8 g/dl (32-36); Mean Corpuscular Hemoglobin 30.3 pg (26-34); Mean Corpuscular Volume 89.6 fl (80-100); Monocytes Absolute Auto 0.4 K/mm3 (0.1-0.6); Monocytes Percent Auto 6.8 % (2.6-8.5); Neutrophils Absolute Auto 3.7 K/mm3 (1.3-6.7); Neutrophils Percent Auto 59.6 % (45.5-73.1); Platelet Count Result 148 k/mm3 (150-375); Red Blood Count 5.09 M/mm3 (4.6-6.20); Red Cell Distribution Width 12.7 % (11.5-14.5); White Blood Count 6.2 K/mm3 (4.5-10.0)
[2024-05-05 09:17] LABS: Add Urine Microscopic? YES; Appearance Urine Cloudy (Clear); Bacteria Urine None Seen /hpf; Bilirubin Urine Negative (Negative); Blood Urine 2+ (Negative); Color Urine Yellow (Yellow); Glucose Urine UA Negative (Negative); Ketones Urine Trace mg/dL (Negative); Leukocyte Esterase Ur Negative LEU/UL (Negative); Mucus Urine Present /lpf; Nitrate Urine Negative (Negative); Protein Urine 2+ mg/dL (Negative); RBC Urine 21-50 /hpf (0-2); Specific Grav Ur 1.023 (1.001-1.035); Squamous Epithelial Cell Urine None Seen /hpf (Few); WBC Urine 0-5 /hpf (0-3)
[2024-05-05 09:18] LABS: Alanine Aminotransferase 29 U/L (6-50); Albumin Level 4.6 g/dL (3.5-5.1); Alkaline Phosphatase 75 U/L (38-126); Anion Gap 9 mmol/L (4-12); Aspartate Amino Transferase 28 U/L (17-59); Bilirubin,Total 0.6 mg/dL (0.2-1.3); Blood Urea Nitrogen 22 mg/dL (9-20); Calcium 9.3 mg/dL (8.4-10.2); Carbon Dioxide 30 mmol/L (22-30); Chloride 103 mmol/L (98-107); Estimated CRCL calculation 74 ml/min; Estimated Glomerular Filt Rate > 60; Glucose 132 mg/dL (65-110); Sodium 142 mmol/L (137-145)
--- NOTE | 2024-05-05 09:38 | PC.NURSE ---
Pt. states he has sleep apnea. Oxygen 91% when pt. intermittently falls asleep. Pt. placed on 2L NC before morphine administration.
[2024-05-05] MEDS: SODIUM CHLORIDE 0.9% IV 1,000 ML 999 ML IV CONT (09:40)
[2024-05-05] MEDS: MORPHINE SULFATE (*CRX) 4 MG/ML INJ IV PUSH (09:41)
[2024-05-05] MEDS: ONDANSETRON INJ 4 MG/2 ML VIAL IV PUSH (09:41)
--- NOTE | 2024-05-05 10:49 | ED.GENADULT ---
HPI - General Adult General Chief complaint: Abdominal Pain Stated complaint: flank pain Time Seen by Provider: 05/05/24 08:47 History of Present Illness HPI narrative: Patient is a 4-year-old male who presents ER with left-sided flank pain. History kidney stones and pain began in the night. Has had some increased waves of pain and nausea. No fevers or chills or sweats. No urinary symptoms though he has tried to go the bathroom. Related Data Home Medications ?Medication ?Instructions ?Recorded ?Confirmed ?Last Taken ?Type cholecalciferol (vitamin D3) 25 25 mcg PO DAILY 09/01/20 05/05/24 05/04/24 History mcg (1,000 unit) capsule omega 1-ptn-aar-fish oil 1,200 mg 3 cap PO DAILY 09/01/20 05/05/24 09/23/20 21:00 History (144 mg-216 mg) capsule paroxetine HCl 40 mg tablet (Paxil) 60 mg PO DAILY 09/26/20 05/05/24 09/23/20 08:00 History dextroamphetamine-amphetamine 30 15 mg PO DAILY 12/15/22 05/05/24 Unknown History mg tablet (Adderall) ferrous sulfate 325 mg (65 mg 325 mg PO DAILY 12/24/22 05/05/24 Unknown History iron) tablet (FeroSul) darifenacin 7.5 mg tablet,extended 7.5 mg PO DAILY 03/28/24 05/05/24 Unknown History release 24 hr oxybutynin chloride 15 mg 15 mg PO DAILY 03/28/24 05/05/24 Unknown History tablet,extended release 24 hr Allergies Allergy/AdvReac Type Severity Reaction Status Date / Time loperamide (From Imodium A-D) Allergy Intermediate Hives Verified 05/05/24 08:53 propoxyphene Allergy Intermediate HIVES, Verified 05/05/24 08:53 ITCHING chloramphenicol Allergy Unknown AN Verified 05/05/24 08:53 ciprofloxacin AdvReac Severe HIVES Verified 05/05/24 08:53 Penicillins AdvReac Unknown UNKNOWN-WAS Verified 05/05/24 08:53 AN INFANT CHLORAMPHENICOL NA SUCC Allergy Unknown AN Uncoded 05/05/24 08:53 Review of Systems Review of Systems: All systems reviewed & are unremarkable except as noted in HPI and below Constitutional: Constitutional: Reports no additional constitutional complaints Cardiovascular: Cardiovascular: Reports no additional cardiovascular complaints Respiratory: Respiratory: Reports no additional respiratory complaints Gastrointestinal: Gastrointestinal: Reports no additional gastrointestinal complaints Genitourinary: Genitourinary: Reports no additional male genitourinary complaints PMFSH Past Medical History Medical History COVID-19 Family history of malignant neoplasm of digestive organs Personal history of colonic polyps Adenomatous polyp of colon Trigger finger of right thumb Abnormal CT of the abdomen Nephrolithiasis Restless leg syndrome Obsessive compulsive disorder Type 2 diabetes mellitus Narcolepsy Acute hypokalemia Blood type AB- Mixed hyperlipidemia Arthritis of carpometacarpal (CMC) joint of left thumb Family history of malignant neoplasm of prostate 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 Mitchell lives at home with his and son. He is independent in his daily activities. He is retired from working with a [employer]. His primary care provider is Dr. Lee. He would like his , Brooke, to be his surrogate decision maker and would like to be a full code. Smoking status: Never smoker Second hand tobacco smoke exposure: No Alcohol intake: never Substance use: never Substance use type: does not use Do You Feel Safe in your Home?: Yes Lack of Transportation: No Lack of Food: Never True Current Housing: I Have Housing Concerned About Future Housing: No Difficulty Paying Gas/Electric Bills: No Difficulty Paying for Meds: No Currently Unemployed: No Education: Decline to Answer Difficulty w/ Childcare or Family Care: No Living arrangements: with family Gender identity (if verbalized by the patient): Male Spiritual care concerns: Yes (Zoroastrian) Exam Narrative: GENERAL: Uncomfortable ell-appearing, well-nourished, and in no acute distress. HEAD: Normocephalic, atraumatic. ENT: Mucous membranes moist. CHEST: Clear to auscultation. No respiratory distress. HEART: Regular rate and rhythm. Normal peripheral pulses. ABDOMEN: Soft, nontender, nondistended. EXTREMITIES: Normal range of motion. No edema. SKIN: Warm, dry, no rash. NEURO: Alert and oriented x3. PSYCH: Normal mood and affect. Course Course Emergency Course: Discussed with urology. Options are stent versus going home and waiting for lithotripsy. Patient does not think he can tolerate discomfort with oral home medications with prefer to stay. Will plan admission hospitalist service. NPO. Continue hydration IV pain control. Vital Signs Vital signs: Vital Signs Temperature 98 F 05/05/24 08:46 Pulse Rate 77 05/05/24 08:46 Respiratory Rate 16 05/05/24 08:46 Blood Pressure 141/98 H 05/05/24 08:46 Pulse Oximetry 98 05/05/24 08:46 Oxygen Delivery Room Air 05/05/24 08:46 Temperature 97.4 F L 05/05/24 17:47 Pulse Rate 68 05/05/24 17:47 Respiratory Rate 16 05/05/24 17:47 Blood Pressure 98/68 L 05/05/24 17:47 Pulse Oximetry 97 05/05/24 17:47 Oxygen Delivery Room Air 05/05/24 15:30 Oxygen Flow Rate 8 05/05/24 14:45 Medical Decision Making Vital Signs Vital Signs: Vital Signs Temperature 98 F 05/05/24 08:46 Pulse Rate 77 05/05/24 08:46 Respiratory Rate 16 05/05/24 08:46 Blood Pressure 141/98 H 05/05/24 08:46 Pulse Oximetry 98 05/05/24 08:46 Oxygen Delivery Room Air 05/05/24 08:46 Temperature 97.4 F L 05/05/24 17:47 Pulse Rate 68 05/05/24 17:47 Respiratory Rate 16 05/05/24 17:47 Blood Pressure 98/68 L 05/05/24 17:47 Pulse Oximetry 97 05/05/24 17:47 Oxygen Delivery Room Air 05/05/24 15:30 Oxygen Flow Rate 8 05/05/24 14:45 Lab Data 05/05/24 08:58 05/05/24 08:58 Labs: Lab Results 05/05/24 Range/Units 08:58 WBC 6.2 (4.5-10.0) K/mm3 RBC 5.09 (4.6-6.20) M/mm3 Hgb 15.4 D (14.0-18.0) g/dL Hct 45.6 (42.0-52.0) % MCV 89.6 (80-100) fl MCH 30.3 (26-34) pg MCHC 33.8 (32-36) g/dl RDW 12.7 (11.5-14.5) % Plt Count 148 L (150-375) k/mm3 MPV 10.0 (7.4-10.4) fl Immature Gran % (Auto) 0.3 (0-0.5) % Neut % (Auto) 59.6 (45.5-73.1) % Lymph % (Auto) 31.3 (18.3-44.2) % [place] % (Auto) 6.8 (2.6-8.5) % Eos % (Auto) 1.5 (0-4.4) % Baso % (Auto) 0.5 (0.2-1.2) % Lymph # (Auto) 1.94 (0.9-3.2) K/mm3 [place] # (Auto) 0.4 (0.1-0.6) K/mm3 Eos # (Auto) 0.1 (0-0.3) K/mm3 Baso # (Auto) 0.0 (0.0-0.1) K/mm3 Abs Immat Gran (auto) 0.02 (0.00-0.031) K/mm3 Absolute Neuts (auto) 3.7 (1.3-6.7) K/mm3 Absolute Nucleated RBC 0.000 (0.0-0.012) K/mm3 Nucleated RBC % 0.0 (0.0-0.2) % Sodium 142 (137-145) mmol/L Potassium 4.0 (3.4-5.0) mmol/L Chloride 103 (98-107) mmol/L Carbon Dioxide 30 (22-30) mmol/L Anion Gap 9 (4-12) mmol/L BUN 22 H D (9-20) mg/dL Creatinine 0.90 (0.7-1.3) mg/dL Estim Creat Clear Calc 74 ml/min Estimated GFR > 60 (59 - ) Glucose 132 H (65-110) mg/dL Calcium 9.3 (8.4-10.2) mg/dL Total Bilirubin 0.6 (0.2-1.3) mg/dL AST 28 (17-59) U/L ALT 29 (6-50) U/L Alkaline Phosphatase 75 (38-126) U/L Total Protein 8.0 (6.3-8.2) g/dL Albumin 4.6 (3.5-5.1) g/dL Urine Color Yellow (Yellow) Urine Appearance Cloudy H (Clear) Urine pH 6.0 (5.0-9.0) Ur Specific [place] 1.023 (1.001-1.035) Urine Protein 2+ H (Negative) mg/dL Urine Glucose (UA) Negative (Negative) mg/dL Urine Ketones Trace H (Negative) mg/dL Ur Blood (Man) 2+ H (Negative) Urine Nitrate Negative (Negative) Urine Bilirubin Negative (Negative) Urine Urobilinogen 1.0 (<2.0) mg/dL Leukocyte Esterase Rfl Negative (Negative) BESS/UL Urine RBC 21-50 H (0-2) /hpf Urine WBC 0-5 (0-3) /hpf Ur Squamous Epith Cells None seen (Few) /hpf Urine Bacteria None seen /hpf Urine Casts 6-10 Urine Mucus Present /lpf Imaging Data Radiologist's impression: ITS Impressions Abdomen/Pelvis CT 05/05/24 09:23 IMPRESSION: 1. Bilateral nephrolithiasis with obstructing 4 mm stone at the left ureteropelvic junction with moderate left hydronephrosis. 2. Prostatomegaly. ADDENDUM: 05/05/24 1033 CORRECTION: There is a dictation error in the impression with incorrect measurement for the UPJ stone. This should read- 1. Bilateral nephrolithiasis with obstructing 11 mm stone at the left ureteropelvic junction with moderate left hydronephrosis. Abdomen X-Ray 05/05/24 10:25 IMPRESSION: 1. Bilateral nephrolithiasis including an 11 mm stone at the left ureteropelvic junction. Discharge Plan Discharge Clinical Impression: Obstruction of left ureteropelvic junction (UPJ) due to stone Patient Disposition: Still a Patient Condition: Stable
--- NOTE | 2024-05-05 11:03 | PC.NURSE ---
Pt. Brooke updated via phone at this time. All questions answered.
--- NOTE | 2024-05-05 12:00 | PC.NURSE ---
Pt. oxygen 96% on RA with good pleth.
--- NOTE | 2024-05-05 12:45 | WPDURCON ---
Assessment and Plan Assessment and plan (1) Left ureteral stone: Code(s): N20.1 - Calculus of ureter Status: Acute Assessment and Plan: Discussed options- home with outpatient treatment, or stent today with delayed stone management. He thinks he'll be back in the ED tonight if he goes home now. We will proceed with left ureteral stent placement, anticipate DC tomorrow, and will let Dr. Salguero arrange follow up ESWL/URS in the next couple weeks. He has had stents before and has no further questions. Urology Consult Note HPI Date Seen: 05/05/24 Requesting Physician: Jose Deleon MD Primary Care Provider: Giorgio Lee MD Consult Narrative Narrative: Mariano Mitchell is a 58 year old male with a history of kidney stones sees my partner Dr Salguero. Has had stents before. Currently has a 11 mm left UPJ stone with other non obstructing stones in the left kidney, and some small stones in the right. Not septic, but pain unable to be adequately controlled. Review of Systems Review of Systems: All systems reviewed & are unremarkable except as noted in HPI and below PMFSH Past Medical History Medical History COVID-19 Family history of malignant neoplasm of digestive organs Personal history of colonic polyps Adenomatous polyp of colon Trigger finger of right thumb Abnormal CT of the abdomen Nephrolithiasis Restless leg syndrome Obsessive compulsive disorder Type 2 diabetes mellitus Narcolepsy Acute hypokalemia Blood type AB- Mixed hyperlipidemia Arthritis of carpometacarpal (CMC) joint of left thumb Family history of malignant neoplasm of prostate 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 Mitchell lives at home with his and son. He is independent in his daily activities. He is retired from working with a [employer]. His primary care provider is Dr. Lee. He would like his , Brooke, to be his surrogate decision maker and would like to be a full code. Smoking status: Never smoker Second hand tobacco smoke exposure: No Alcohol intake: never Substance use: never Substance use type: does not use Lack of Transportation: No Lack of Food: Never True Current Housing: I Have Housing Concerned About Future Housing: No Difficulty Paying Gas/Electric Bills: No Difficulty Paying for Meds: No Currently Unemployed: No Education: Bachelor's Degree Difficulty w/ Childcare or Family Care: No Living arrangements: with family Gender identity (if verbalized by the patient): Male Spiritual care concerns: No Meds Home Medications and Allergies Home Medications ?Medication ?Instructions ?Recorded ?Confirmed ?Type cholecalciferol (vitamin D3) 25 25 mcg PO DAILY 09/01/20 03/28/24 History mcg (1,000 unit) capsule omega 7-jzb-geu-fish oil 1,200 mg 3 cap PO DAILY 09/01/20 03/28/24 History (144 mg-216 mg) capsule paroxetine HCl 40 mg tablet (Paxil) 60 mg PO DAILY 09/26/20 03/28/24 History buspirone 15 mg tablet 15 mg PO BID #180 tabs 01/08/21 03/28/24 Rx epinephrine 0.3 mg/0.3 mL 0.3 mg (0.3 mL) IM ONCE PRN 01/12/22 03/28/24 Rx injection, auto-injector (EpiPen anaphylaxis #2 ea 2-Bib) dextroamphetamine-amphetamine 30 15 mg PO DAILY 12/15/22 03/28/24 History mg tablet (Adderall) ferrous sulfate 325 mg (65 mg mg PO 12/24/22 03/28/24 History iron) tablet (FeroSul) blood sugar diagnostic (OneTouch #100 ea 01/13/23 03/28/24 Rx Verio test strips) blood-glucose meter (OneTouch #1 ea 01/13/23 03/28/24 Rx Verio Flex Meter) lancets 30 gauge (OneTouch Delica #100 ea 01/13/23 03/28/24 Rx Plus Lancet) blood-glucose sensor (FreeStyle #13 ea 06/27/23 03/28/24 Rx Judith 3 Sensor device) rosuvastatin 10 mg tablet (Crestor) 10 mg PO DAILY #90 tabs 12/26/23 03/28/24 Rx omeprazole 20 mg capsule,delayed 20 mg PO DAILY #90 caps 01/03/24 03/28/24 Rx release metformin 1,000 mg tablet See Rx Instructions .Route 01/25/24 03/28/24 Rx .COMPLEX #180 tabs dextroamphetamine-amphetamine 30 30 mg PO BID #60 tabs 02/14/24 03/28/24 Rx mg tablet (Adderall) dextroamphetamine-amphetamine 30 30 mg PO BID #60 tabs 02/14/24 03/28/24 Rx mg tablet (Adderall) dextroamphetamine-amphetamine 30 30 mg PO BID #60 tabs 02/14/24 03/28/24 Rx mg tablet (Adderall) modafinil 200 mg tablet 200 mg PO QAM #30 tabs 03/03/24 03/28/24 Rx sitagliptin phosphate 100 mg 100 mg PO DAILY #90 tabs 03/06/24 03/28/24 Rx tablet (Januvia) clobetasol 0.05 % topical cream topical 03/28/24 03/28/24 History darifenacin 7.5 mg tablet,extended mg PO 03/28/24 03/28/24 History release 24 hr oxybutynin chloride 15 mg 15 mg PO DAILY 03/28/24 03/28/24 History tablet,extended release 24 hr tirzepatide 2.5 mg/0.5 mL 2.5 mg (0.5 mL) subcut WEEKLY #6 mL 03/28/24 03/28/24 Rx subcutaneous pen injector (Yanira) pramipexole 1 mg tablet See Rx Instructions .Route 04/10/24 Rx .COMPLEX #135 tabs Allergies Allergy/AdvReac Type Severity Reaction Status Date / Time loperamide (From Imodium A-D) Allergy Intermediate Hives Verified 05/05/24 08:53 propoxyphene Allergy Intermediate HIVES, Verified 05/05/24 08:53 ITCHING chloramphenicol Allergy Unknown AN Verified 05/05/24 08:53 ciprofloxacin AdvReac Severe HIVES Verified 05/05/24 08:53 Penicillins AdvReac Unknown UNKNOWN-WAS Verified 05/05/24 08:53 AN INFANT CHLORAMPHENICOL NA SUCC Allergy Unknown AN Uncoded 05/05/24 08:53 Vital Signs Vital Signs - 24 hr 05/05/24 08:46 05/05/24 09:39 05/05/24 11:16 Temperature 36.6 C Pulse Rate 77 79 86 Respiratory Rate 16 15 16 Blood Pressure 141/98 H 141/91 H 122/87 Pulse Oximetry 98 94 95 Oxygen Delivery Room Air Exam Narrative: alert, oriented, no focal deficits, does not appear acutely ill Results Labs 05/05/24 08:58 05/05/24 08:58 Labs: Short CBC 05/05/24 Range/Units 08:58 WBC 6.2 (4.5-10.0) K/mm3 Hgb 15.4 D (14.0-18.0) g/dL Hct 45.6 (42.0-52.0) % Plt Count 148 L (150-375) k/mm3 BMP 05/05/24 08:58 Sodium 142 Potassium 4.0 Chloride 103 Carbon Dioxide 30 BUN 22 H D Creatinine 0.90 Glucose 132 H Calcium 9.3 Liver Function 05/05/24 Range/Units 08:58 Total Bilirubin 0.6 (0.2-1.3) mg/dL AST 28 (17-59) U/L ALT 29 (6-50) U/L Alkaline Phosphatase 75 (38-126) U/L Albumin 4.6 (3.5-5.1) g/dL Urine 05/05/24 Range/Units 08:58 Urine Color Yellow (Yellow) Urine Appearance Cloudy H (Clear) Urine pH 6.0 (5.0-9.0) Ur Specific [place] 1.023 (1.001-1.035) Urine Protein 2+ H (Negative) mg/dL Urine Glucose (UA) Negative (Negative) mg/dL
--- NOTE | 2024-05-05 13:06 | PM.IMHP ---
H&P: HPI History of Present Illness Date/Time: 05/05/24 13:06 Chief Complaint: flank pain Narrative: Mariano Mitchell is a 55-year-old with a history of Hyperlipidemia, anxiety, narcolepsy, type 2 diabetes mellitus, multiple medication allergies and history of anaphylaxis over 5 years ago who presented to the emergency department with left-sided flank pain. History kidney stones and pain began in the night. Has had some increased waves of pain and nausea. No fevers or chills or sweats. Urology was consulted give the option outpatient treatment or stent today with delayed stone management. Patient preferred surgical treatment and underwent left ureteral stent plate placement and will possibly discharged tomorrow. Labs and imaging were reviewed. Abdomen/pelvic CT showsBilateral nephrolithiasis with obstructing 11 mm stone at the left ureteropelvic junction with moderate left hydronephrosis. Review of Systems Review of Systems: All systems reviewed & are unremarkable except as noted in HPI and below Constitutional: Constitutional: Reports no additional constitutional complaints Cardiovascular: Cardiovascular: Reports no additional cardiovascular complaints Respiratory: Respiratory: Reports no additional respiratory complaints Gastrointestinal: Gastrointestinal: Reports no additional gastrointestinal complaints Genitourinary: Genitourinary: Reports no additional male genitourinary complaints PMFSH Past Medical History Medical History COVID-19 Family history of malignant neoplasm of digestive organs Personal history of colonic polyps Adenomatous polyp of colon Trigger finger of right thumb Abnormal CT of the abdomen Nephrolithiasis Restless leg syndrome Obsessive compulsive disorder Type 2 diabetes mellitus Narcolepsy Acute hypokalemia Blood type AB- Mixed hyperlipidemia Arthritis of carpometacarpal (CMC) joint of left thumb Family history of malignant neoplasm of prostate 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 Mitchell lives at home with his and son. He is independent in his daily activities. He is retired from working with a [employer]. His primary care provider is Dr. Lee. He would like his , Brooke, to be his surrogate decision maker and would like to be a full code. Smoking status: Never smoker Second hand tobacco smoke exposure: No Alcohol intake: never Substance use: never Substance use type: does not use Do You Feel Safe in your Home?: Yes Lack of Transportation: No Lack of Food: Never True Current Housing: I Have Housing Concerned About Future Housing: No Difficulty Paying Gas/Electric Bills: No Difficulty Paying for Meds: No Currently Unemployed: No Education: Decline to Answer Difficulty w/ Childcare or Family Care: No Living arrangements: with family Gender identity (if verbalized by the patient): Male Spiritual care concerns: Yes (Jewish) Meds Home Medications and Allergies Home Medications ?Medication ?Instructions ?Recorded ?Confirmed ?Type cholecalciferol (vitamin D3) 25 25 mcg PO DAILY 09/01/20 03/28/24 History mcg (1,000 unit) capsule omega 3-npw-xec-fish oil 1,200 mg 3 cap PO DAILY 09/01/20 03/28/24 History (144 mg-216 mg) capsule paroxetine HCl 40 mg tablet (Paxil) 60 mg PO DAILY 09/26/20 03/28/24 History buspirone 15 mg tablet 15 mg PO BID #180 tabs 01/08/21 03/28/24 Rx epinephrine 0.3 mg/0.3 mL 0.3 mg (0.3 mL) IM ONCE PRN 01/12/22 03/28/24 Rx injection, auto-injector (EpiPen anaphylaxis #2 ea 2-Bib) dextroamphetamine-amphetamine 30 15 mg PO DAILY 12/15/22 03/28/24 History mg tablet (Adderall) ferrous sulfate 325 mg (65 mg mg PO 12/24/22 03/28/24 History iron) tablet (FeroSul) blood sugar diagnostic (OneTouch #100 ea 01/13/23 03/28/24 Rx Verio test strips) blood-glucose meter (OneTouch #1 ea 01/13/23 03/28/24 Rx Verio Flex Meter) lancets 30 gauge (OneTouch Delica #100 ea 01/13/23 03/28/24 Rx Plus Lancet) blood-glucose sensor (FreeStyle #13 ea 06/27/23 03/28/24 Rx Judith 3 Sensor device) rosuvastatin 10 mg tablet (Crestor) 10 mg PO DAILY #90 tabs 12/26/23 03/28/24 Rx omeprazole 20 mg capsule,delayed 20 mg PO DAILY #90 caps 01/03/24 03/28/24 Rx release metformin 1,000 mg tablet See Rx Instructions .Route 01/25/24 03/28/24 Rx .COMPLEX #180 tabs dextroamphetamine-amphetamine 30 30 mg PO BID #60 tabs 02/14/24 03/28/24 Rx mg tablet (Adderall) dextroamphetamine-amphetamine 30 30 mg PO BID #60 tabs 02/14/24 03/28/24 Rx mg tablet (Adderall) dextroamphetamine-amphetamine 30 30 mg PO BID #60 tabs 02/14/24 03/28/24 Rx mg tablet (Adderall) modafinil 200 mg tablet 200 mg PO QAM #30 tabs 03/03/24 03/28/24 Rx sitagliptin phosphate 100 mg 100 mg PO DAILY #90 tabs 03/06/24 03/28/24 Rx tablet (Januvia) clobetasol 0.05 % topical cream topical 03/28/24 03/28/24 History darifenacin 7.5 mg tablet,extended mg PO 03/28/24 03/28/24 History release 24 hr oxybutynin chloride 15 mg 15 mg PO DAILY 03/28/24 03/28/24 History tablet,extended release 24 hr tirzepatide 2.5 mg/0.5 mL 2.5 mg (0.5 mL) subcut WEEKLY #6 mL 03/28/24 03/28/24 Rx subcutaneous pen injector (Yanira) pramipexole 1 mg tablet See Rx Instructions .Route 04/10/24 Rx .COMPLEX #135 tabs Allergies Allergy/AdvReac Type Severity Reaction Status Date / Time loperamide (From Imodium A-D) Allergy Intermediate Hives Verified 05/05/24 08:53 propoxyphene Allergy Intermediate HIVES, Verified 05/05/24 08:53 ITCHING chloramphenicol Allergy Unknown AN Verified 05/05/24 08:53 INFANT ciprofloxacin AdvReac Severe HIVES Verified 05/05/24 08:53 Penicillins AdvReac Unknown UNKNOWN-WAS Verified 05/05/24 08:53 AN CHLORAMPHENICOL NA SUCC Allergy Unknown AN Uncoded 05/05/24 08:53 Vital Signs Vital Signs - 24 hr 05/05/24 08:46 05/05/24 09:39 05/05/24 11:16 Temperature 98 F Pulse Rate 77 79 86 Respiratory Rate 16 15 16 Blood Pressure 141/98 H 141/91 H 122/87 Pulse Oximetry 98 94 95 Oxygen Delivery Room Air 05/05/24 12:53 Temperature Pulse Rate 76 Respiratory Rate 16 Blood Pressure 121/85 Pulse Oximetry 97 Oxygen Delivery Exam Narrative: alert, oriented, no focal deficits, does not appear acutely ill H&P: Results Labs Labs: Short CBC 05/05/24 Range/Units 08:58 WBC 6.2 (4.5-10.0) K/mm3 Hgb 15.4 D (14.0-18.0) g/dL Hct 45.6 (42.0-52.0) % Plt Count 148 L (150-375) k/mm3 BMP 05/05/24 08:58 Sodium 142 Potassium 4.0 Chloride 103 Carbon Dioxide 30 BUN 22 H D Creatinine 0.90 Glucose 132 H Calcium 9.3 Liver Function 05/05/24 Range/Units 08:58 Total Bilirubin 0.6 (0.2-1.3) mg/dL AST 28 (17-59) U/L ALT 29 (6-50) U/L Alkaline Phosphatase 75 (38-126) U/L Albumin 4.6 (3.5-5.1) g/dL Urine 05/05/24 Range/Units 08:58 Urine Color Yellow (Yellow) Urine Appearance Cloudy H (Clear) Urine pH 6.0 (5.0-9.0) Ur Specific [place] 1.023 (1.001-1.035) Urine Protein 2+ H (Negative) mg/dL Urine Glucose (UA) Negative (Negative) mg/dL Assessment and Plan Assessment and plan (1) Left ureteral stone: Code(s): N20.1 - Calculus of ureter Status: Acute Assessment and Plan: Under went left ureteral stent placement Follow up with Dr. Salguero to arrange ESWL/URS in the next couple weeks. PMHx of stent placement. (2) Mixed hyperlipidemia: Code(s): E78.2 - Mixed hyperlipidemia Status: Acute Assessment and Plan: Continue home medication (3) Type 2 diabetes mellitus without complications: Code(s): E11.9 - Type 2 diabetes mellitus without complications Status: Acute Assessment and Plan: Mild ssi Hypoglycemic protocol (4) Allergic reaction: Code(s): T78.40XA - Allergy, unspecified, initial encounter Status: Acute Assessment and Plan: Record review indicates the patient visited multiple times in the ED due to allergic reaction Plan Medical reconciliation pending Hospitalist MIPS Advance Care Plan I have confirmed that the patient's Advanced Care Plan is present, code status is documented, or surrogate decision maker is listed in patient medical record.: Yes Medication Reconciliation I have utilized all available resources to obtain, update and review the patients current medications (includes all prescriptions, OTC, herbals, cannabis, and nutritional supplements).: Yes
[2024-05-05 13:41] LABS: Glucose Point of Care 102 mg/dl (65-105)
--- NOTE | 2024-05-05 13:58 | WPDANESEPPF ---
Anes - Initial Pre Proc Eval Procedure: Operation Date: 05/05/24 14:00 Proposed Procedures p Flexible Cystoscopy(Left) - Khurram Flores MD Date/Time: 05/05/24 13:58 Surgeon: Jose Deleon MD Pre Op Diagnosis: UPJ Stone Patient Data Age: 58 Gender: M Height: 1.73 m Weight: 79 kg Last Vital Signs Temp 97.4 F L 05/05/24 13:15 Pulse 72 05/05/24 13:15 Resp 16 05/05/24 13:15 BP 117/76 05/05/24 13:15 Pulse Ox 93 05/05/24 13:15 O2 Del Method Room Air 05/05/24 08:46 Allergies Allergy/AdvReac Type Severity Reaction Status Date / Time loperamide (From Imodium A-D) Allergy Intermediate Hives Verified 05/05/24 08:53 propoxyphene Allergy Intermediate HIVES, Verified 05/05/24 08:53 ITCHING chloramphenicol Allergy Unknown AN Verified 05/05/24 08:53 INFANT ciprofloxacin AdvReac Severe HIVES Verified 05/05/24 08:53 Penicillins AdvReac Unknown UNKNOWN-WAS Verified 05/05/24 08:53 AN CHLORAMPHENICOL NA SUCC Allergy Unknown AN Uncoded 05/05/24 08:53 Home Medications ?Medication ?Instructions ?Recorded ?Confirmed ?Type cholecalciferol (vitamin D3) 25 25 mcg PO DAILY 09/01/20 03/28/24 History mcg (1,000 unit) capsule omega 1-hzf-jqk-fish oil 1,200 mg 3 cap PO DAILY 09/01/20 03/28/24 History (144 mg-216 mg) capsule paroxetine HCl 40 mg tablet (Paxil) 60 mg PO DAILY 09/26/20 03/28/24 History buspirone 15 mg tablet 15 mg PO BID #180 tabs 01/08/21 03/28/24 Rx epinephrine 0.3 mg/0.3 mL 0.3 mg (0.3 mL) IM ONCE PRN 01/12/22 03/28/24 Rx injection, auto-injector (EpiPen anaphylaxis #2 ea 2-Bib) dextroamphetamine-amphetamine 30 15 mg PO DAILY 12/15/22 03/28/24 History mg tablet (Adderall) ferrous sulfate 325 mg (65 mg mg PO 12/24/22 03/28/24 History iron) tablet (FeroSul) blood sugar diagnostic (OneTouch #100 ea 01/13/23 03/28/24 Rx Verio test strips) blood-glucose meter (OneTouch #1 ea 01/13/23 03/28/24 Rx Verio Flex Meter) lancets 30 gauge (OneTouch Delica #100 ea 01/13/23 03/28/24 Rx Plus Lancet) blood-glucose sensor (FreeStyle #13 ea 06/27/23 03/28/24 Rx Judith 3 Sensor device) rosuvastatin 10 mg tablet (Crestor) 10 mg PO DAILY #90 tabs 12/26/23 03/28/24 Rx omeprazole 20 mg capsule,delayed 20 mg PO DAILY #90 caps 01/03/24 03/28/24 Rx release metformin 1,000 mg tablet See Rx Instructions .Route 01/25/24 03/28/24 Rx .COMPLEX #180 tabs dextroamphetamine-amphetamine 30 30 mg PO BID #60 tabs 02/14/24 03/28/24 Rx mg tablet (Adderall) dextroamphetamine-amphetamine 30 30 mg PO BID #60 tabs 02/14/24 03/28/24 Rx mg tablet (Adderall) dextroamphetamine-amphetamine 30 30 mg PO BID #60 tabs 02/14/24 03/28/24 Rx mg tablet (Adderall) modafinil 200 mg tablet 200 mg PO QAM #30 tabs 03/03/24 03/28/24 Rx sitagliptin phosphate 100 mg 100 mg PO DAILY #90 tabs 03/06/24 03/28/24 Rx tablet (Januvia) clobetasol 0.05 % topical cream topical 03/28/24 03/28/24 History darifenacin 7.5 mg tablet,extended mg PO 03/28/24 03/28/24 History release 24 hr oxybutynin chloride 15 mg 15 mg PO DAILY 03/28/24 03/28/24 History tablet,extended release 24 hr tirzepatide 2.5 mg/0.5 mL 2.5 mg (0.5 mL) subcut WEEKLY #6 mL 03/28/24 03/28/24 Rx subcutaneous pen injector (Yanira) pramipexole 1 mg tablet See Rx Instructions .Route 04/10/24 Rx .COMPLEX #135 tabs Laboratory Tests 05/05/24 05/05/24 08:58 13:39 WBC 6.2 K/mm3 (4.5-10.0) RBC 5.09 M/mm3 (4.6-6.20) Hgb 15.4 D g/dL (14.0-18.0) Hct 45.6 % (42.0-52.0) MCV 89.6 fl (80-100) MCH 30.3 pg (26-34) MCHC 33.8 g/dl (32-36) RDW 12.7 % (11.5-14.5) Plt Count 148 L k/mm3 (150-375) MPV 10.0 fl (7.4-10.4) Immature Gran % (Auto) 0.3 % (0-0.5) Neut % (Auto) 59.6 % (45.5-73.1) Lymph % (Auto) 31.3 % (18.3-44.2) [place] % (Auto) 6.8 % (2.6-8.5) Eos % (Auto) 1.5 % (0-4.4) Baso % (Auto) 0.5 % (0.2-1.2) Lymph # (Auto) 1.94 K/mm3 (0.9-3.2) [place] # (Auto) 0.4 K/mm3 (0.1-0.6) Eos # (Auto) 0.1 K/mm3 (0-0.3) Baso # (Auto) 0.0 K/mm3 (0.0-0.1) Abs Immat Gran (auto) 0.02 K/mm3 (0.00-0.031) Absolute Neuts (auto) 3.7 K/mm3 (1.3-6.7) Absolute Nucleated RBC 0.000 K/mm3 (0.0-0.012) Nucleated RBC % 0.0 % (0.0-0.2) Sodium 142 mmol/L (137-145) Potassium 4.0 mmol/L (3.4-5.0) Chloride 103 mmol/L (98-107) Carbon Dioxide 30 mmol/L (22-30) Anion Gap 9 mmol/L (4-12) BUN 22 H D mg/dL (9-20) Creatinine 0.90 mg/dL (0.7-1.3) Estim Creat Clear Calc 74 ml/min Estimated GFR > 60 (59 - ) Glucose 132 H mg/dL (65-110) POC Capillary Glucose 102 mg/dl (65-105) Calcium 9.3 mg/dL (8.4-10.2) Total Bilirubin 0.6 mg/dL (0.2-1.3) AST 28 U/L (17-59) ALT 29 U/L (6-50) Alkaline Phosphatase 75 U/L (38-126) Total Protein 8.0 g/dL (6.3-8.2) Albumin 4.6 g/dL (3.5-5.1) Urine Color Yellow (Yellow) Urine Appearance Cloudy H (Clear) Urine pH 6.0 (5.0-9.0) Ur Specific [place] 1.023 (1.001-1.035) Urine Protein 2+ H mg/dL (Negative) Urine Glucose (UA) Negative mg/dL (Negative) Urine Ketones Trace H mg/dL (Negative) Ur Blood (Man) 2+ H (Negative) Urine Nitrate Negative (Negative) Urine Bilirubin Negative (Negative) Urine Urobilinogen 1.0 mg/dL (<2.0) Leukocyte Esterase Rfl Negative BESS/UL (Negative) Urine RBC 21-50 H /hpf (0-2) Urine WBC 0-5 /hpf (0-3) Ur Squamous Epith Cells None seen /hpf (Few) Urine Bacteria None seen /hpf Urine Casts 6-10 Urine Mucus Present /lpf Patient hx anesthesia problems: none Family hx anesthesia problems: none Results Review: All pre-operative results and documents have been reviewed as part of the pre-operative evaluation. [facility] Past Medical History Medical History COVID-19 Family history of malignant neoplasm of digestive organs Personal history of colonic polyps Adenomatous polyp of colon Trigger finger of right thumb Abnormal CT of the abdomen Nephrolithiasis Restless leg syndrome Obsessive compulsive disorder Type 2 diabetes mellitus Narcolepsy Acute hypokalemia Blood type AB- Mixed hyperlipidemia Arthritis of carpometacarpal (CMC) joint of left thumb Family history of malignant neoplasm of prostate 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 Mitchell lives at home with his and son. He is independent in his daily activities. He is retired from working with a [employer]. His primary care provider is Dr. Lee. He would like his , Brooke, to be his surrogate decision maker and would like to be a full code. Smoking status: Never smoker Second hand tobacco smoke exposure: No Alcohol intake: never Substance use: never Substance use type: does not use Do You Feel Safe in your Home?: Yes Lack of Transportation: No Lack of Food: Never True Current Housing: I Have Housing Concerned About Future Housing: No Difficulty Paying Gas/Electric Bills: No Difficulty Paying for Meds: No Currently Unemployed: No Education: Decline to Answer Difficulty w/ Childcare or Family Care: No Living arrangements: with family Gender identity (if verbalized by the patient): Male Spiritual care concerns: Yes (Gnosticist) Anes - Eval Final PreProcedure Day of Procedure 05/05/24 13:58 Patient weight: overweight Lungs: normal air movement Airway: Mallampati scale class 1 Neurological: alert and oriented Last oral intake: >/= 8 hours ASA classification: III Emergent: no Anesthetic plan: proceed Anesthesia type and monitoring: general ETT Results Review: All pre-operative results and documents have been reviewed as part of the pre-operative evaluation. DM on GLP1 (off for 6 days), LISA not routinely on CPAP, hyperlipidemia. Overall not active but no cp or sob. Informed Consent: The patient's anesthetic plan and its attendant risks and benefits were discussed with the patient/family/POA. Questions were solicited and answers provided to the satisfaction of the patient/family/POA.
[2024-05-05] MEDS: ceFAZolin 2 GM/D5W 50 ML 2 GM/50 ML BAG IVPB (14:15)
[2024-05-05] MEDS: LIDOCAINE 2% GEL UROJET 10 ML PKG MUCOUS MEM (14:21)
--- NOTE | 2024-05-05 14:29 | W.PM.PROC2 ---
Procedure Note - Detailed Date of Procedure 05/05/24 Pre-op Diagnosis UPJ Stone Post-op Diagnosis Same Procedure Performed cysto, left stent placement Surgeon Khurram Flores MD Anesthesia MAC Indications left upj stone Findings visible on fluoro Description of Procedure Patient was brought back to the OR and placed in lithotomy. Genitalia were prepped and draped. Meatus was dilated 18F-24F to facilitate scope. Cystoscopy was performed. Bladder normal, prostate small. Left UO cannulated with sensor wire. Over the wire a 6F variable length stent was advanced into the upper tract under fluoroscopic guidance. Stone was clearly visible at the UPJ. Bladder drained and he was sent to recovery. Implants left ureteral stent Estimated Blood Loss 0
[2024-05-05] MEDS: LACTATED RINGERS 1,000 ML 30 ML IV CONT (14:32)
[2024-05-05 15:09] LABS: Glucose Point of Care 83 mg/dl (65-105)
[2024-05-05 16:27] LABS: Glucose Point of Care 96 mg/dl (65-105)
[2024-05-05] MEDS: SODIUM CHLORIDE 0.9% IV 1,000 ML 125 ML IV CONT (20:41)
[2024-05-05 21:13] LABS: Glucose Point of Care 156 mg/dl (65-105)
[2024-05-06 03:31] VITALS: BP 97/59; PULSE 66; RESP 18; TEMP 36.8; O2SAT 92
[2024-05-06] MEDS: SODIUM CHLORIDE 0.9% IV 1,000 ML 125 ML IV CONT (06:28)
[2024-05-06 07:31] VITALS: BP 98/60; PULSE 68; RESP 18; TEMP 36.7; O2SAT 92
[2024-05-06 08:29] LABS: Glucose Point of Care 108 mg/dl (65-105)
[2024-05-06 09:12] LABS: Alanine Aminotransferase 21 U/L (6-50); Albumin Level 3.7 g/dL (3.5-5.1); Alkaline Phosphatase 69 U/L (38-126); Anion Gap 6 mmol/L (4-12); Aspartate Amino Transferase 22 U/L (17-59); Bilirubin,Total 0.5 mg/dL (0.2-1.3); Blood Urea Nitrogen 14 mg/dL (9-20); Calcium 8.2 mg/dL (8.4-10.2); Carbon Dioxide 27 mmol/L (22-30); Chloride 108 mmol/L (98-107); Estimated CRCL calculation 94 ml/min; Estimated Glomerular Filt Rate > 60; Glucose 106 mg/dL (65-110); Potassium 3.9 mmol/L (3.4-5.0); Sodium 141 mmol/L (137-145)
[2024-05-06 09:13] LABS: Hematocrit 39.9 % (42.0-52.0); Hemoglobin 13.3 g/dL (14.0-18.0); Immature Platelet Fraction Pct 4.1 % (0.9-11.2); Mean Corpuscular HGB Conc 33.3 g/dl (32-36); Mean Corpuscular Hemoglobin 30.2 pg (26-34); Mean Corpuscular Volume 90.5 fl (80-100); Mean Platelet Volume 10.7 fl (7.4-10.4); Platelet Count Result 114 k/mm3 (150-375); Red Blood Count 4.41 M/mm3 (4.6-6.20); Red Cell Distribution Width 12.5 % (11.5-14.5); White Blood Count 4.9 K/mm3 (4.5-10.0)
--- NOTE | 2024-05-06 10:44 | WPDUROPN2 ---
Progress Note: A&P Assessment and Plan (1) Obstruction of left ureteropelvic junction (UPJ) due to stone: Code(s): N20.1 - Calculus of ureter Status: Acute Assessment and Plan: will need outpatient urs/eswl with dr cunha, will alert him to arrange, july d/c Subjective Subjective Date/Time Seen: 05/06/24 10:44 Interval history: tolerating stent okay, doesn't like it Review of Systems Review of Systems: All systems reviewed & are unremarkable except as noted in HPI and below Exam Narrative: no focal deficits or distress, alert oriented Objective Data Vital Signs Vital Signs: Vital Signs - 24 hr 05/05/24 11:16 05/05/24 12:53 05/05/24 13:15 Temperature 36.3 C L Pulse Rate 86 76 72 Respiratory Rate 16 16 16 Blood Pressure 122/87 121/85 117/76 Pulse Oximetry 95 97 93 Oxygen Delivery Oxygen Flow Rate 05/05/24 14:45 05/05/24 14:45 05/05/24 15:00 Temperature 36.3 C L Pulse Rate 68 63 63 Respiratory Rate 13 15 17 Blood Pressure 105/77 105/74 109/74 Pulse Oximetry 99 100 96 Oxygen Delivery Simple Face Mask Simple Face Mask Room Air Oxygen Flow Rate 8 8 05/05/24 15:15 05/05/24 15:30 05/05/24 15:50 Temperature 36.3 C L 36.3 C L Pulse Rate 60 67 64 Respiratory Rate 12 16 16 Blood Pressure 103/71 98/58 L 93/66 L Pulse Oximetry 95 94 94 Oxygen Delivery Room Air Room Air Oxygen Flow Rate 05/05/24 16:05 05/05/24 16:35 05/05/24 17:47 Temperature 36.4 C L 36.3 C L 36.3 C L Pulse Rate 63 65 68 Respiratory Rate 16 16 16 Blood Pressure 95/68 L 92/64 L 98/68 L Pulse Oximetry 94 97 97 Oxygen Delivery Oxygen Flow Rate 05/05/24 18:35 05/05/24 20:35 05/05/24 21:14 Temperature 36.6 C Pulse Rate 68 62 62 Respiratory Rate 16 18 18 Blood Pressure 96/55 L Pulse Oximetry 97 91 91 Oxygen Delivery Room Air Room Air Oxygen Flow Rate 05/05/24 23:31 05/06/24 03:31 05/06/24 07:31 Temperature 36.7 C 36.8 C 36.7 C Pulse Rate 61 66 68 Respiratory Rate 18 18 18 Blood Pressure 98/58 L 97/59 L 98/60 L Pulse Oximetry 90 92 92 Oxygen Delivery Oxygen Flow Rate Intake/Output Intake/Output: Intake & Output 05/03/24 05/04/24 05/05/24 05/06/24 23:59 23:59 23:59 23:59 Intake Total 1430 1480 Balance 1430 1480 Meds/Results Medications: Active Medications Generic Name Dose Route Start Last Admin Trade Name Freq PRN Reason Stop Dose Admin Dextrose 12.5 gm 05/05/24 16:06 Dextrose 50% 25 Gm/50 Ml Syringe IV PUSH PRN PRN Hypoglycemia Protocol Glucagon 1 mg 05/05/24 16:06 Glucagon For Inj 1 Mg Vial IM PRN PRN Hypoglycemia Protocol Glucose 15 gm 05/05/24 16:06 Glucose Oral Gel 15 Gm Of Glucse In 37.5 Gm Tube PO PRN PRN Hypoglycemia Protocol Sodium Chloride 1,000 mls @ 125 mls/hr 05/05/24 11:55 05/06/24 06:28 Normal Saline Iv IV CONT 125 mls/hr .Q8H LESLEE Administration Dextrose 1,000 mls @ 100 mls/hr 05/05/24 16:06 Dextrose 5% 1,000 Ml IVPB PRN PRN Hypoglycemia Protocol Insulin Aspart 2 - 5 units 05/05/24 17:00 05/06/24 08:55 Insulin Aspart (*Bkc) 100 Units/Ml SUB-Q Not Given TIDWM LESLEE Protocol Morphine Sulfate 2 mg 05/05/24 11:54 Morphine Sulfate (*Crx) 2 Mg/Ml Inj IV PUSH Q2H PRN Pain Rated 7-10 Ondansetron HCl 4 mg 05/05/24 11:54 Ondansetron Inj 4 Mg/2 Ml Vial IV PUSH Q4H PRN Nausea Radiology Results: ITS Impressions Abdomen/Pelvis CT 05/05/24 09:23 IMPRESSION: 1. Bilateral nephrolithiasis with obstructing 4 mm stone at the left ureteropelvic junction with moderate left hydronephrosis. 2. Prostatomegaly. ADDENDUM: 05/05/24 1036 CORRECTION: There is a dictation error in the impression with incorrect measurement for the UPJ stone. This should read- 1. Bilateral nephrolithiasis with obstructing 11 mm stone at the left ureteropelvic junction with moderate left hydronephrosis. Abdomen X-Ray 05/05/24 10:25 IMPRESSION: 1. Bilateral nephrolithiasis including an 11 mm stone at the left ureteropelvic junction. Labs Labs: Laboratory Results - last 24 hr 05/05/24 05/05/24 05/05/24 13:39 15:06 16:12 WBC RBC Hgb Hct MCV MCH MCHC RDW Plt Count MPV % Immature Plt Fraction Sodium Potassium Chloride Carbon Dioxide Anion Gap BUN Creatinine Estim Creat Clear Calc Estimated GFR Glucose POC Capillary Glucose 102 83 96 Calcium Total Bilirubin AST ALT Alkaline Phosphatase Total Protein Albumin 05/05/24 05/06/24 05/06/24 20:27 07:58 08:21 WBC 4.9 RBC 4.41 L Hgb 13.3 L Hct 39.9 L MCV 90.5 MCH 30.2 MCHC 33.3 RDW 12.5 Plt Count 114 L MPV 10.7 H % Immature Plt Fraction 4.1 Sodium 141 Potassium 3.9 Chloride 108 H Carbon Dioxide 27 Anion Gap 6 BUN 14 D Creatinine 0.70 Estim Creat Clear Calc 94 Estimated GFR > 60 Glucose 106 POC Capillary Glucose 156 H 108 H Calcium 8.2 L Total Bilirubin 0.5 AST 22 ALT 21 Alkaline Phosphatase 69 Total Protein 6.0 L Albumin 3.7
[2024-05-06 11:31] VITALS: BP 103/56; PULSE 62; RESP 18; TEMP 36.7; O2SAT 96
[2024-05-06 11:54] LABS: Glucose Point of Care 168 mg/dl (65-105)
--- NOTE | 2024-05-06 13:51 | PM.IMPN ---
Progress Note: A&P Assessment and Plan (1) Left ureteral stone: Code(s): N20.1 - Calculus of ureter Status: Acute Assessment and Plan: Under went left ureteral stent placement Follow up with Dr. Salguero to arrange ESWL/URS in the next couple weeks. PMHx of stent placement. (2) Mixed hyperlipidemia: Code(s): E78.2 - Mixed hyperlipidemia Status: Acute Assessment and Plan: Continue home medication (3) Type 2 diabetes mellitus without complications: Code(s): E11.9 - Type 2 diabetes mellitus without complications Status: Acute Assessment and Plan: Mild ssi Hypoglycemic protocol (4) Allergic reaction: Code(s): T78.40XA - Allergy, unspecified, initial encounter Status: Acute Assessment and Plan: Record review indicates the patient visited multiple times in the ED due to allergic reaction Plan Medical reconciliation pending Subjective Date/time seen: 05/06/24 13:51 Interval history: Patient blood pressure is still soft. Will continue fluids. Review of Systems Review of Systems: All systems reviewed & are unremarkable except as noted in HPI and below Constitutional: Constitutional: Reports no additional constitutional complaints Cardiovascular: Cardiovascular: Reports no additional cardiovascular complaints Respiratory: Respiratory: Reports no additional respiratory complaints Gastrointestinal: Gastrointestinal: Reports no additional gastrointestinal complaints Genitourinary: Genitourinary: Reports no additional male genitourinary complaints Exam Narrative: alert, oriented, no focal deficits, does not appear acutely ill Objective Data Vital Signs Vital Signs: Vital Signs - 24 hr 05/05/24 14:45 05/05/24 14:45 05/05/24 15:00 Temperature 97.3 F L Pulse Rate 68 63 63 Respiratory Rate 13 15 17 Blood Pressure 105/77 105/74 109/74 Pulse Oximetry 99 100 96 Oxygen Delivery Simple Face Mask Simple Face Mask Room Air Oxygen Flow Rate 8 8 05/05/24 15:15 05/05/24 15:30 05/05/24 15:50 Temperature 97.4 F L 97.4 F L Pulse Rate 60 67 64 Respiratory Rate 12 16 16 Blood Pressure 103/71 98/58 L 93/66 L Pulse Oximetry 95 94 94 Oxygen Delivery Room Air Room Air Oxygen Flow Rate 05/05/24 16:05 05/05/24 16:35 05/05/24 17:47 Temperature 97.5 F L 97.4 F L 97.4 F L Pulse Rate 63 65 68 Respiratory Rate 16 16 16 Blood Pressure 95/68 L 92/64 L 98/68 L Pulse Oximetry 94 97 97 Oxygen Delivery Oxygen Flow Rate 05/05/24 18:35 05/05/24 20:35 05/05/24 21:14 Temperature 98 F Pulse Rate 68 62 62 Respiratory Rate 16 18 18 Blood Pressure 96/55 L Pulse Oximetry 97 91 91 Oxygen Delivery Room Air Room Air Oxygen Flow Rate 05/05/24 23:31 05/06/24 03:31 05/06/24 07:31 Temperature 98.1 F 98.2 F 98.1 F Pulse Rate 61 66 68 Respiratory Rate 18 18 18 Blood Pressure 98/58 L 97/59 L 98/60 L Pulse Oximetry 90 92 92 Oxygen Delivery Oxygen Flow Rate 05/06/24 11:31 Temperature 98.1 F Pulse Rate 62 Respiratory Rate 18 Blood Pressure 103/56 L Pulse Oximetry 96 Oxygen Delivery Oxygen Flow Rate Intake/Output Intake/Output: Intake & Output 05/03/24 05/04/24 05/05/24 05/06/24 23:59 23:59 23:59 23:59 Intake Total 1430 1600 Balance 1430 1600 Meds/Results Medications: Active Medications Generic Name Dose Route Start Last Admin Trade Name Freq PRN Reason Stop Dose Admin Dextrose 12.5 gm 05/05/24 16:06 Dextrose 50% 25 Gm/50 Ml Syringe IV PUSH PRN PRN Hypoglycemia Protocol Glucagon 1 mg 05/05/24 16:06 Glucagon For Inj 1 Mg Vial IM PRN PRN Hypoglycemia Protocol Glucose 15 gm 05/05/24 16:06 Glucose Oral Gel 15 Gm Of Glucse In 37.5 Gm Tube PO PRN PRN Hypoglycemia Protocol Sodium Chloride 1,000 mls @ 125 mls/hr 05/05/24 11:55 05/06/24 06:28 Normal Saline Iv IV CONT 125 mls/hr .Q8H LESLEE Administration Dextrose 1,000 mls @ 100 mls/hr 05/05/24 16:06 Dextrose 5% 1,000 Ml IVPB PRN PRN Hypoglycemia Protocol Insulin Aspart 2 - 5 units 05/05/24 17:00 05/06/24 12:07 Insulin Aspart (*Bkc) 100 Units/Ml SUB-Q Not Given TIDWM LESLEE Protocol Morphine Sulfate 2 mg 05/05/24 11:54 Morphine Sulfate (*Crx) 2 Mg/Ml Inj IV PUSH Q2H PRN Pain Rated 7-10 Ondansetron HCl 4 mg 05/05/24 11:54 Ondansetron Inj 4 Mg/2 Ml Vial IV PUSH Q4H PRN Nausea Radiology Results: ITS Impressions Abdomen/Pelvis CT 05/05/24 09:23 IMPRESSION: 1. Bilateral nephrolithiasis with obstructing 4 mm stone at the left ureteropelvic junction with moderate left hydronephrosis. 2. Prostatomegaly. ADDENDUM: 05/05/24 1033 CORRECTION: There is a dictation error in the impression with incorrect measurement for the UPJ stone. This should read- 1. Bilateral nephrolithiasis with obstructing 11 mm stone at the left ureteropelvic junction with moderate left hydronephrosis. Abdomen X-Ray 05/05/24 10:25 IMPRESSION: 1. Bilateral nephrolithiasis including an 11 mm stone at the left ureteropelvic junction. Labs Labs: Laboratory Results - last 24 hr 05/05/24 05/05/24 05/05/24 15:06 16:12 20:27 WBC RBC Hgb Hct MCV MCH MCHC RDW Plt Count MPV % Immature Plt Fraction Sodium Potassium Chloride Carbon Dioxide Anion Gap BUN Creatinine Estim Creat Clear Calc Estimated GFR Glucose POC Capillary Glucose 83 96 156 H Calcium Total Bilirubin AST ALT Alkaline Phosphatase Total Protein Albumin 05/06/24 05/06/24 05/06/24 07:58 08:21 11:40 WBC 4.9 RBC 4.41 L Hgb 13.3 L Hct 39.9 L MCV 90.5 MCH 30.2 MCHC 33.3 RDW 12.5 Plt Count 114 L MPV 10.7 H % Immature Plt Fraction 4.1 Sodium 141 Potassium 3.9 Chloride 108 H Carbon Dioxide 27 Anion Gap 6 BUN 14 D Creatinine 0.70 Estim Creat Clear Calc 94 Estimated GFR > 60 Glucose 106 POC Capillary Glucose 108 H 168 H Calcium 8.2 L Total Bilirubin 0.5 AST 22 ALT 21 Alkaline Phosphatase 69 Total Protein 6.0 L Albumin 3.7 Hospitalist MIPS Advance Care Plan I have confirmed that the patient's Advanced Care Plan is present, code status is documented, or surrogate decision maker is listed in patient medical record.: Yes Medication Reconciliation I have utilized all available resources to obtain, update and review the patients current medications (includes all prescriptions, OTC, herbals, cannabis, and nutritional supplements).: Yes
[2024-05-06 15:22] VITALS: BP 119/79; PULSE 67; RESP 18; TEMP 36.8; O2SAT 95
--- NOTE | 2024-05-06 15:28 | PM.DS ---
DS: Admitting Diagnosis Discharge Date 05/06/2024 Admitting Diagnosis Nephrolitiasis DS: Discharge Diagnosis Discharge Diagnosis (1) Left ureteral stone: Code(s): N20.1 - Calculus of ureter Status: Acute Assessment and Plan: Under went left ureteral stent placement Follow up with Dr. Salguero to arrange ESWL/URS in the next couple weeks. PMHx of stent placement. (2) Mixed hyperlipidemia: Code(s): E78.2 - Mixed hyperlipidemia Status: Acute Assessment and Plan: Continue home medication (3) Type 2 diabetes mellitus without complications: Code(s): E11.9 - Type 2 diabetes mellitus without complications Status: Acute Assessment and Plan: Continue home medications (4) Allergic reaction: Code(s): T78.40XA - Allergy, unspecified, initial encounter Status: Acute Assessment and Plan: Record review indicates the patient visited multiple times in the ED due to allergic reaction DS: Summary Hospital Course Hospital Course: Mariano Mitchell is a 55-year-old with a history of Hyperlipidemia, anxiety, narcolepsy, type 2 diabetes mellitus, multiple medication allergies and history of anaphylaxis over 5 years ago who presented to the emergency department with left-sided flank pain. History kidney stones and pain began in the night. Has had some increased waves of pain and nausea. No fevers or chills or sweats. Urology was consulted give the option outpatient treatment or stent today with delayed stone management. Patient preferred surgical treatment and underwent left ureteral stent plate placement and will possibly discharged tomorrow. Labs and imaging were reviewed. Abdomen/pelvic CT showsBilateral nephrolithiasis with obstructing 11 mm stone at the left ureteropelvic junction with moderate left hydronephrosis.Patient under went left ureteral stent placement.Advised to follow up with Dr. Salguero to arrange ESWL/URS in the next couple weeks.PMHx of multiple urologic procedures. Status at Discharge Cognitive/behavioral status at discharge: Stable Time Spent with Patient Time attestation: Total time spent providing and/or coordinating discharge services:45 minutes Exam Narrative: alert, oriented, no focal deficits, does not appear acutely ill DS: Data Data Completed and Pending Labs on day of discharge: Labs from last 24 hours 05/06/24 05/06/24 05/06/24 11:40 08:21 07:58 WBC 4.9 RBC 4.41 L Hgb 13.3 L Hct 39.9 L MCV 90.5 MCH 30.2 MCHC 33.3 RDW 12.5 Plt Count 114 L MPV 10.7 H % Immature Plt Fraction 4.1 Sodium 141 Potassium 3.9 Chloride 108 H Carbon Dioxide 27 Anion Gap 6 BUN 14 D Creatinine 0.70 Estim Creat Clear Calc 94 Estimated GFR > 60 Glucose 106 POC Capillary Glucose 168 H 108 H Calcium 8.2 L Total Bilirubin 0.5 AST 22 ALT 21 Alkaline Phosphatase 69 Total Protein 6.0 L Albumin 3.7 05/05/24 05/05/24 20:27 16:12 WBC RBC Hgb Hct MCV MCH MCHC RDW Plt Count MPV % Immature Plt Fraction Sodium Potassium Chloride Carbon Dioxide Anion Gap BUN Creatinine Estim Creat Clear Calc Estimated GFR Glucose POC Capillary Glucose 156 H 96 Calcium Total Bilirubin AST ALT Alkaline Phosphatase Total Protein Albumin Discharge Plan Discharge Attending physician on discharge: Jake Jaquez Consulting providers: Khurram Flores Discharging Clinician: Jake Jaquez Anticipated Discharge Date/Time: 05/06/24 16:24 Patient Disposition: Home, Self-Care Activity: as tolerated Diet: regular Discharge Instructions: outpatient follow up URS/ESWL with dr salguero Patient Instructions: Antibiotic Form Patient Language: [place] Leone[place] Stand Alone Forms: General Discharge Information Follow-up/Referrals: Rafita Salguero MD [Physician] - 1 Week Giorgio Lee MD [Primary Care Provider] - Discharge Medications: Continued omega 2-qbh-dcz-fish oil 1,200 (144-216) mg capsule 3 cap PO DAILY cholecalciferol (vitamin D3) 25 mcg (1,000 unit) capsule 25 mcg PO DAILY ferrous sulfate [FeroSul] 325 mg (65 mg iron) tablet 325 mg PO DAILY darifenacin 7.5 mg tablet extended release 24 hr 7.5 mg PO DAILY Mounjaro 2.5 mg/0.5 mL pen injector 2.5 mg subcut WEEKLY Qty: 6 0RF Rx Instructions: for 4 weeks paroxetine HCl [Paxil] 40 mg tablet 60 mg PO DAILY Rx Instructions: 1.5 tablets PO daily; buspirone 15 mg tablet 15 mg PO BID Qty: 180 3RF epinephrine [EpiPen 2-Bib] 0.3 mg/0.3 mL auto-injector 0.3 mg IM ONCE PRN (Reason: anaphylaxis) Qty: 2 2RF Rx Instructions: as a single dose (DME) blood-glucose meter [OneTouch Verio Flex meter] Misc See Rx Instructions .Route Qty: 1 0RF Rx Instructions: Use to check BS once daily (DME) OneTouch Verio test strips Strip See Rx Instructions .Route Qty: 100 2RF Rx Instructions: Use to check BS once daily (DME) lancets [OneTouch Delica Plus Lancet] 30 gauge misc See Rx Instructions .Route Qty: 100 2RF Rx Instructions: Use to check BS once daily (DME) FreeStyle Judith 3 Sensor Device See Rx Instructions .Route Qty: 13 2RF Rx Instructions: As directed rosuvastatin [Crestor] 10 mg tablet 10 mg PO DAILY Qty: 90 1RF omeprazole 20 mg capsule,delayed release(DR/EC) 20 mg PO DAILY Qty: 90 1RF metformin 1,000 mg tablet See Rx Instructions .ROUTE .COMPLEX Qty: 180 1RF Dose Instruction: TAKE 1 TABLET TWICE A DAY Rx Instructions: TAKE 1 TABLET TWICE A DAY dextroamphetamine-amphetamine [Adderall] 30 mg tablet 30 mg PO BID Qty: 60 0RF Rx Instructions: Fill in February dextroamphetamine-amphetamine [Adderall] 30 mg tablet 30 mg PO BID Qty: 60 0RF Rx Instructions: fill in March dextroamphetamine-amphetamine [Adderall] 30 mg tablet 30 mg PO BID Qty: 60 0RF Rx Instructions: fill in April modafinil 200 mg tablet 200 mg PO QAM Qty: 30 3RF Januvia 100 mg tablet 100 mg PO DAILY Qty: 90 1RF pramipexole 1 mg tablet See Rx Instructions .ROUTE .COMPLEX Qty: 135 1RF Dose Instruction: TAKE ONE AND ONE-HALF TABLETS DAILY Rx Instructions: TAKE ONE AND ONE-HALF TABLETS DAILY dextroamphetamine-amphetamine [Adderall] 30 mg tablet 15 mg PO DAILY Rx Instructions: fill in September oxybutynin chloride 15 mg tablet extended release 24hr 15 mg PO DAILY Date of admission: 05/05/24 11:54 Primary Care Provider: Giorgio Lee Admitting Provider: Michelet Deleon Attending physician on admission: Michelet Deleon Condition: Stable
[2024-05-06 16:12] LABS: Glucose Point of Care 107 mg/dl (65-105)
[2024-05-06 17:01] VITALS: BP 122/75
== END 2024-05-06 18:00 | disposition home or self-care (01) ==
LOC: ANHED 09:19 → ANH3MEDSUR 18:39
PROVIDERS: Urology; Admitting Provider Internal Medicine; Emergency Provider Emergency Medicine; PCP Family Medicine; Visit Provider General Practice
PROC: 0TJB8ZZ Inspection of Bladder, Via Natural or Artificial Opening Endoscopic (ICD-10-PCS; CPT 52000; principal; 2024-05-05 14:00)
DX: N13.2 Hydronephrosis with renal and ureteral calculous obstruction (principal); E11.9 Type 2 diabetes mellitus without complications; E78.2 Mixed hyperlipidemia; F41.9 Anxiety disorder, unspecified; G47.419 Narcolepsy without cataplexy; Z86.16 Personal history of COVID-19; Z86.0101 Personal history of adenomatous and serrated colon polyps; Z79.84 Long term (current) use of oral hypoglycemic drugs; Z79.85 Long-term (current) use of injectable non-insulin antidiabetic drugs; Z79.899 Other long term (current) drug therapy; Z88.0 Allergy status to penicillin; Z88.8 Allergy status to other drugs, medicaments and biological substances
CPT/HCPCS: 52332; 36415; 74018; 74176; 74420; 80053; 81001; 82948; 85025; 85027; 85055; 96361; 96374; 96375; 99285; C2617; G0378; J0690; J1885; J2003; J2250; J2270; J2405; J2704; J3010; J7030; J7120

== ENCOUNTER 2024-05-10 10:37 | Outpatient (CLI) | payer OTHER, SELFPAY ==
--- NOTE | 2024-05-10 10:46 | ECG_ITS ---
Test Date: 2024-05-10 11:08:23 Measurements Intervals Electra Rate: 79 P: 56 ID: [id number] QRS: 55 QRSD: 96 T: 26 QT: 358 QTc: 411 Interpretive Statements SINUS RHYTHM WARNING: DATA QUALITY MAY AFFECT INTERPRETATION No previous ECG available for comparison Electronically Signed On 05-10-2024 14:06:09 [employer] by Torsten Fregoso M.D.
[2024-05-10 11:40] LABS: INR 0.9; Prothrombin Time 12.9 Seconds (11.1-14.7)
[2024-05-10 11:41] LABS: Partial Thromboplastin Time 26.1 Seconds (22.3-36.8)
--- OUTSIDE RECORDS SUMMARY | 2024-05-10 12:15 | XMS_ITS | Clinical Summary ---
Author Organization [facility] Address [address] [place] [address] Phone Care Team Providers Care Vacation Sales Advisor Name Role Phone WILIAM PHILLIPS, LUCY JUNG [facility] [phone] Reason for Visit and Chief Complaint [Patient Encounter] Problems Includes: Problems addressed during this encounter and other active Problems All Visits Onset Date Resolved Date Provider Condition S tatus Narcolepsy 10/05/2014 Active Last Documented On 3 5:48PM ; [facility] Diabetes Mellitus 07/19/2012 Active Last Documented On 3 5:45PM ; [facility] 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 Last Documented On 3 5:45PM ; [facility] Major Depression, Recurrent 07/19/2012 Active Last Documented On 3 5:45PM ; [facility] Restless Legs Syndrome 07/19/2012 Ac tive Last Documented On 3 5:45PM ; [facility] Obsessive Compulsive Disorder 03/08/2012 Active Last Documented On 3 5:50PM ; [facility] Generalized Anxiety Disorder 03/08/2012 Active Last Documented On 3 5:42PM ; [facility] Gerd 03/08/2012 Active Last Documented On 3 5:42PM ; [facility] Hyperlipidemia 03/08/2012 Active Last Documented On 3 5:42PM ; [facility] Nephrolithiasis 03/08/2012 Active Last Documented On 3 5:42PM ; [facility] Plan of Treatment Future Appointments Date Time Location Provi conrad [facility] ESTABLISHED 06/20/2024 4:40PM [facility] LUCY STILL MD Last Documented On 5:56PM ; [facility] Assessments Includes: Assessments from this encounter No Assessments Recorded Medical Equipment - Implanted Devices Includes: Current Devices No Medical Equipment Recorded Medications Includes: Medications discussed during this encounter and other current Medications Discontinued / Stopped on this date LUCY STILL MD on 09/08/2016 Pramipexole Dihydrochloride 0.5 MG OR TABS Provider: LUCY STILL MD Diagnosis: Restless legs sy ndrome Last Documented On 07/03/2022 5:27PM By Yajaira Still MD ; [facility] Current Medications (continue as prescribed) Paxil 40 MG Oral Tablet 06/21/2023 Provider: BRIONNA STILL MD Diagnosis: Obsessive-compul sive disorder, unspecified TAKE 1 AND 1/2 TABLETS BY [facility] DAILY DIRECTED Last Documented On 06/21/2023 5:42PM By Yajaira Still MD ; [facility] busPIRone HCl 15 MG Oral Tablet 06/20/2023 Provider: LUCY STILL MD Diagnosis: Generalized anxi ety disorder One tablet twice a day Last Documented On 06/20/2023 10:49AM By Yajaira Still MD ; [facility] Pramipexole Dihydrochloride 1 MG Oral Tablet 04/20/2023 Provider: NICOLA Archibald Diagnosis: 1 and 1/2 tab in the evening Last Documented On 06/21/2023 5:48PM By Yajaira Still MD ; [facility] Fish Oil 1200 MG Oral Capsule 12/23/2022 Provider: Diagnosis: 3 caps daily Last Documented On 12/23/2022 4:48PM By ELISEO BARCENAS ; [facility] oxyBUTYnin Chloride ER 15 MG Oral Tablet Extended Release 24 Hour 11/15/2022 Provider: LAYO RUGGIERO MD Diagnosis: 1 tab daily Last Documented On 12/23/2022 4:48PM By ELISEO BARCENAS ; [facility] Januvia 100 MG OR TABS 10/02/2021 Provider: Diagnosis: 1 tab daily Last Documented On 07/03/2022 5:27PM By ELISEO BARCENAS ; [facility] FeroSul 325 (65 Fe) MG OR TABS 05/28/2021 Provider: Diagnosis: 1 tab daily Last Documented On 07/03/2022 5:27PM By ELISEO BARCENAS ; [facility] EPINEPHrine 0.3 MG/0.3ML IJ SOAJ 2020 Provider : Diagnosis: use as directed Last Documented On 07/03/2022 5:27PM By ELISEO BARCENAS ; [facility] Rosuvastatin Calcium 10 MG OR TABS 06/18/2019 Provid er: Diagnosis: one tablet daily Last Documented On 07/03/2022 5:27PM By JENNIFER CARMICHAEL ; [facility] Modafinil 200 MG OR TABS 07/24/2018 Provider: MET SHELDON STILL MD Diagnosis: Obstructive slee p apnea (adult) (pediatric) as directed -- 1 tab in am Last Documented On 07/03/2022 5:27PM By Yajaira Still MD ; [facility] Amphetamine-Dextroamphetamin e 30 MG OR TABS 01/01/2016 Provider: LUCY STILL MD Diagnosis: Sleep apnea, unspecified as directed Take 1/2 tablet in am and 1/2 tab at 2: 30 pm Last Documented On 07/03/2022 5:27PM By Yajaira Still MD ; [facility] PA Vitamin D-3 25 MCG (1000 UT) OR TABS 01/01/2015 P rovider: Diagnosis: Last Documented On 07/03/2022 5:27PM By Yajaira Still MD ; [facility] metFORMIN HCl 1000 MG TABS 07/19/2012 Provider: Diagnosis: Last Documented On 07/03/2022 5:27PM By VALENTINO GOLD ; [facility] Omeprazole 20 MG OR CPDR 03/08/2012 Provider: Diagnosis: Last Documented On 07/03/2022 5:27PM By VALENTINO GOLD ; [facility] Medications Administered Includes: Administered Medications from this encounter No Administered Medications Recorded Vital Signs Includes: Vital Signs from this encounter Vital Name 06/16/2021 04:57P Blood Pressure Sitting (mmHg) 121/71 BP Cuff Size Regular Pulse Rate-Sitting (bpm) 85 Pulse Rhythm Regular Height (in) 67.5 Weight (lb) 179 Body Mass Index (kg/m2) 27.6 Body Surface Area (m2) 1.9 Note: self reported vitals Last Documented: On 07/03/2022 6:00PM ; [facility] Results Includes: Results discussed during this encounter No Results Recorded For Specified Dates History of Present Illness Includes: History of Present Illness from this encounter No History of Present Illness Recorded Social History No Social History Recorded - Smoking Status Unknown Medical History Includes: Medical History addressed during this encounter No Medical History Recorded Family History Includes: Family History addressed during this encounter No Family History Recorded Review of Systems Includes: Review of Systems from this encounter No Review of Systems Recorded Mental Status Includes: Mental Status from this encounter No Mental Status Recorded Functional Status Includes: Functional Status from this encounter No Functional Status Recorded Physical Exam Includes: Physical Exam from this encounter No Physical Exam Recorded Allergies Includes: Active Allergies Substance Type Reaction Onset Date Resolved Date Statu s Penicillin V Potassium Allergy 03/08/2012 Active Last Documented On 06/21/2023 4:56PM ; [facility] Note: Imported from external source. Cipro Allergy 12/20/2018 Active Last Documented On 06/21/2023 4:56PM ; [facility] Note: Imported from external source. Cipro Allergy Hives / Urticaria 12/20/2018 R esolved Last Documented On 4:47PM ; [facility] Aspartame Allergy Skin Rashes / Eruption of skin 06/29/2018 Active Last Documented On 06/21/2023 4:56PM ; [facility] Note: Imported from external source. Encounters Encounter Provider Location Date Check-In Time Check-Out Time Diagnosis [Patient Encounter] 06/16/2021 12:00AM 11:59PM Insurance Includes: Active Insurance Policies Plan Name Member ID Group # Subscriber Relationship Effect refugio Dates 1 - [facility] [id number] MARYAM MUNOZ 03/10/2020 - Unknown Clinical Notes Includes: Clinical Notes from this encounter No Clinical Notes Recorded
--- OUTSIDE RECORDS SUMMARY | 2024-05-10 12:16 | XMS_ITS | Clinical Summary ---
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 Name Role Phone WILIAM PHILLIPS, LUCY JUNG [facility] [phone] Reason for Visit and Chief Complaint [Patient Encounter] Problems Includes: Problems addressed during this encounter and other active Problems All Visits Onset Date Resolved Date Provider Condition S tatus Narcolepsy 10/05/2014 Active Last Documented On 3 5:48PM ; [facility] Diabetes Mellitus 07/19/2012 Active Last Documented On 3 5:45PM ; [facility] 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 Last Documented On 3 5:45PM ; [facility] Major Depression, Recurrent 07/19/2012 Active Last Documented On 3 5:45PM ; [facility] Restless Legs Syndrome 07/19/2012 Ac tive Last Documented On 3 5:45PM ; [facility] Obsessive Compulsive Disorder 03/08/2012 Active Last Documented On 3 5:50PM ; [facility] Generalized Anxiety Disorder 03/08/2012 Active Last Documented On 3 5:42PM ; [facility] Gerd 03/08/2012 Active Last Documented On 3 5:42PM ; [facility] Hyperlipidemia 03/08/2012 Active Last Documented On 3 5:42PM ; [facility] Nephrolithiasis 03/08/2012 Active Last Documented On 3 5:42PM ; [facility] Plan of Treatment Future Appointments Date Time Location Provi conrad [facility] ESTABLISHED 06/20/2024 4:40PM [facility] LUCY STILL MD Last Documented On 5:56PM ; [facility] Assessments Includes: Assessments from this encounter No Assessments Recorded Medical Equipment - Implanted Devices Includes: Current Devices No Medical Equipment Recorded Medications Includes: Medications discussed during this encounter and other current Medications Discontinued / Stopped on this date on 06/06/2020 Myrbetriq 25 MG OR TB24 Provider: Diagnosis: Last Documented On 07/03/2022 5:27PM By ELISEO BARCENAS ; [facility] Current Medications (continue as prescribed) Paxil 40 MG Oral Tablet 06/21/2023 Provider: BRIONNA STILL MD Diagnosis: Obsessive-compul sive disorder, unspecified TAKE 1 AND 1/2 TABLETS BY [facility] DAILY DIRECTED Last Documented On 06/21/2023 5:42PM By Yajaira Still MD ; [facility] busPIRone HCl 15 MG Oral Tablet 06/20/2023 Provider: LUCY STILL MD Diagnosis: Generalized anxi ety disorder One tablet twice a day Last Documented On 06/20/2023 10:49AM By Yajaira Still MD ; [facility] Pramipexole Dihydrochloride 1 MG Oral Tablet 04/20/2023 Provider: NICOLA Archibald Diagnosis: 1 and 1/2 tab in the evening Last Documented On 06/21/2023 5:48PM By Yajaira Still MD ; [facility] Fish Oil 1200 MG Oral Capsule 12/23/2022 Provider: Diagnosis: 3 caps daily Last Documented On 12/23/2022 4:48PM By ELISEO BARCENAS ; [facility] oxyBUTYnin Chloride ER 15 MG Oral Tablet Extended Release 24 Hour 11/15/2022 Provider: LAYO RUGGIERO MD Diagnosis: 1 tab daily Last Documented On 12/23/2022 4:48PM By ELISEO BARCENAS ; [facility] Januvia 100 MG OR TABS 10/02/2021 Provider: Diagnosis: 1 tab daily Last Documented On 07/03/2022 5:27PM By ELISEO BARCENAS ; [facility] FeroSul 325 (65 Fe) MG OR TABS 05/28/2021 Provider: Diagnosis: 1 tab daily Last Documented On 07/03/2022 5:27PM By ELISEO BARCENAS ; [facility] EPINEPHrine 0.3 MG/0.3ML IJ SOAJ 2020 Provider : Diagnosis: use as directed Last Documented On 07/03/2022 5:27PM By ELISEO BARCENAS ; [facility] Rosuvastatin Calcium 10 MG OR TABS 06/18/2019 Provid er: Diagnosis: one tablet daily Last Documented On 07/03/2022 5:27PM By JENNIFER CARMICHAEL ; [facility] Modafinil 200 MG OR TABS 07/24/2018 Provider: MET SHELDON STILL MD Diagnosis: Obstructive slee p apnea (adult) (pediatric) as directed -- 1 tab in am Last Documented On 07/03/2022 5:27PM By Yajaira Still MD ; [facility] Amphetamine-Dextroamphetamin e 30 MG OR TABS 01/01/2016 Provider: LUCY STILL MD Diagnosis: Sleep apnea, unspecified as directed Take 1/2 tablet in am and 1/2 tab at 2: 30 pm Last Documented On 07/03/2022 5:27PM By Yajaira Still MD ; [facility] PA Vitamin D-3 25 MCG (1000 UT) OR TABS 01/01/2015 P rovider: Diagnosis: Last Documented On 07/03/2022 5:27PM By Yajaira Still MD ; [facility] metFORMIN HCl 1000 MG TABS 07/19/2012 Provider: Diagnosis: Last Documented On 07/03/2022 5:27PM By VALENTINO GOLD ; [facility] Omeprazole 20 MG OR CPDR 03/08/2012 Provider: Diagnosis: Last Documented On 07/03/2022 5:27PM By VALENTINO GOLD ; [facility] Medications Administered Includes: Administered Medications from this encounter No Administered Medications Recorded Vital Signs Includes: Vital Signs from this encounter Vital Name 06/23/2022 04:51P Blood Pressure Sitting (mmHg) 121/78 BP Cuff Size Regular Pulse Rate-Sitting (bpm) 87 Pulse Rhythm Regular Height (in) 67.5 Weight (lb) 176 Body Mass Index 27.2 Body Surface Area 1.9 Note: self reported vitals Last Documented: On 07/03/2022 6:00PM ; [facility] Results Includes: Results discussed during this encounter [...] Active Last Documented On 06/21/2023 4:56PM ; [facility] Note: Imported from external source. Cipro Allergy 12/20/2018 Active Last Documented On 06/21/2023 4:56PM ; [facility] Note: Imported from external source. Cipro Allergy Hives / Urticaria 12/20/2018 R esolved Last Documented On 4:47PM ; [facility] Aspartame Allergy Skin Rashes / Eruption of skin 06/29/2018 Active Last Documented On 06/21/2023 4:56PM ; [facility] Note: Imported from external source. Encounters Encounter Provider Location Date Check-In Time Check-Out Time Diagnosis [Patient Encounter] 06/23/2022 12:00AM 11:59PM Insurance Includes: Active Insurance Policies Plan Name Member ID Group # Subscriber Relationship Effect refugio Dates 1 - [facility] [id number] MARYAM MUNOZ 03/10/2020 - Unknown Clinical Notes Includes: Clinical Notes from this encounter No Clinical Notes Recorded
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
--- OUTSIDE RECORDS SUMMARY | 2024-05-10 12:16 | XMS_ITS | Clinical Summary ---
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 fever, no chills, and no night sweats. Head: No headache and no sinus pain. Neck: No neck pain and no neck stiffness. Eyes: Vision problems. No itching of the eyes and no eye pain. Otolaryngeal: No hearing [...] pruritus. No skin lesions and no rash. Physical Findings - Vitals taken 06/21/2023 04:58 pm self reported vitals BP-Sitting L 108/72 mmHg BP Cuff Size Regular Pulse Rate-Sitting 86 bpm Pulse Rhythm Regular Height 67.5 in Weight 176 lbs Body Mass Index 27.2 kg/m2 Body Surface Area 1.9 m2 Tests Educational Testing: Questionnaires PHQ-9: Value PHQ-9: total score 2 Assessment - Obstructive sleep apnea - Restless legs syndrome - Major depression, recurrent - Narcolepsy - Generalized anxiety disorder - Obsessive compulsive disorder Therapy - Dangerousness assessment: no suicide risk. - Supportive care and encouragement--given positive reinforcement to keep patient motivated and active. - Encouragement to exercise - balanced meal plan, low fat low carb diet. - Education and instructions. - Assessment of suicide risk performed - not suicidal - Clinical summary provided to patient. * Call [phone] and /or go to the nearest emergency room or call me if suicidal/homicidal ideation or other serious concerns arise. * I gave instructions to call me should there be any questions or concerns. * Patient voiced understanding and agreed to treatment plan. Plan StartCited - Obsessive-compulsive disorder, unspecified Paxil 40 MG tablet TAKE 1 AND 1/2 TABLETS BY MOUTH DAILY DIRECTED, 90 days, 3 refills EndCited StartCited - Other Follow-up 12/20/23 EndCited Major depressive disorder - Paxil 40 mg 1 and 1/2 tabs daily Obsessive Compulsive Disorder - Paxil 40 mg 1 and 1/2 tab daily Generalized Anxiety Disorder - Buspar 15 mg 1 tab 2 x a day LISA - Vpap tx is no longer helping, he now sees a different sleep specialist in [place], [place] Dr. Lujan -- Modafinil 200 mg in am -- he is now back to wearing his CPAP Restless legs Syndrome - Pramipexole 1.5 mg in evening Practice Management Use of tobacco assessment performed and patient screened for future fall risk documentation of any fall with injury in past year - no recent falls Review of medications documented; Standardized depression screening: positive for symptoms and for adult impression and score - please see above for treatment and PHQ score.
--- OUTSIDE RECORDS SUMMARY | 2024-05-10 12:16 | XMS_ITS | Encounter Summary ---
Author Organization [facility] Address [address] [place] [address] Care Team Providers Care Bolt Sawyer Name Role Phone Giorgio Lee MD Primary Care Provider [phone] Giorgio Lee MD Primary Care Provider [phone] Giorgio Lee MD Primary Care Provider [phone] Encounter Details Date Type Department Care Team (Late st Contact Info) Description 04/26/2011 Orders Only [facility] [place] Health Information Management [address] [place] [address] Scanning, Provider Social History Tobacco Use Types Packs/Day Years Used Date Smoking Tobacco: Never Assessed Sex and Gender Information Value Date Recorded Sex Assigned at Not on file Legal Sex Male 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 Gender Identity Male 01/13/2019 7:57 PM ORTHODONTIC TECHNICIAN Sexual Orientation Straight 01/13/2019 7: 57 PM ORTHODONTIC TECHNICIAN documented as of this encounter Plan of Treatment Not on file documented as of this encounter Procedures Procedure Name Priority Date/Time Associated Diagnosis Comments GI - RESULT 04/26/2011 SCAN - PATHOLOGY 04/26/2011 documented in this encounter Results * SCAN - PATHOLOGY (04/26/2011) us Provider Scanning Final Result * GI - RESULT (04/26/2011) Anatomical Region Laterality Modality Other us Provider Scanning Final Result documented in this encounter Visit Diagnoses Not on filedocumented in this encounter Care Teams Bolt Sawyer Relationship Specialty Start Date End Date Giorgio Lee MD PCP - General 06/04/16 Giorgio Lee MD PCP - General 01/14/14 06/03/16 Giorgio Lee MD PCP - General 10/03/09 01/13/14 documented as of this encounter
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
--- OUTSIDE RECORDS SUMMARY | 2024-05-10 12:16 | XMS_ITS | Clinical Summary ---
Author Organization [facility] Address [address] [place] [id number] Care Team Providers Care Injection Molder Name Role Phone Giorgio Lee MD Primary Care Provider [phone] Allergies Active Allergy Reactions Criticality Noted Date Comments Aspartame Anaphylaxis,Diarrhea ,Unknown,Rash,Itchin g,Nausea and Vomiting,Redness,GI Upset High 03/07/2012 Chloramphenicol Other (see comment) 02/21/2021 Reaction: UNKNOWN CHILDHOOD, Ciprofloxacin Other (see comment) Low 02/21/2021 Reaction: Loperamide Rash Low 02/21/2021 Reaction: RASH Loperamide-Simethicone Unknown Medium 12/31/2020 Penicillins Other (see comment) Low 02/21/2021 Reaction: Reaction: UNKNOWN CHILDHOOD, , , , Propoxyphene Other (see comment) Low 02/21/2021 Reaction: Medications amphetamine-dext roamphetamine 30 MG tablet Take 1 tablet by mouth 2 (two) times daily. 11/13/2020 Active busPIRone 15 MG tablet 10/10/2020 Active vitamin D3, cholecalciferol, 25 MCG (1000 UT) capsule Take 1,000 Units by mouth daily. Active metFORMIN 1000 MG tablet 10/10/2020 Active mirabegron ER (MYRBETRIQ) 25 MG 24 hr tablet 10/30/2020 Act refugio traMADol 50 MG tabletIndication s:Acute Pain < 7 Day Supply Take 1 tablet (50 mg total) by mouth every 6 (six) hours as needed for Pain. Indications : Acute Pain < 7 Day Supply 20 tablet 02/22/2021 Active Immunizations Name Administration Dates Next Due PFIZER COVID-19 (ORIGINAL FO RMULATION, PURPLE CAP) mRNA, LNP-S, PF, 30 MCG/0.3 ML DOSE 12/13/2020,05/31/2020,05/06/2020 Social History Tobacco Use Types Packs/Day Years Used Date Smoking Tobacco: Never Assessed Sex and Gender Information Value Date Recorded Sex Assigned at Not on file Legal Sex Male 3:52 PM CDT Gender Identity Not on file Sexual Orientation Not on file Last Filed Vital Signs Vital Sign Reading Time Taken Comments Blood Pressure 121/78 02/22/2021 12:30 AM FORGING PRESS OPERATOR Pulse 77 02/22/2021 1:00 AM FORGING PRESS OPERATOR Temperature 36.9 C (98.4 F) 02/21/2021 9:27 PM FORGING PRESS OPERATOR Respiratory Rate 15 02/22/2021 1:00 AM FORGING PRESS OPERATOR Oxygen Saturation 99% 02/22/2021 1:00 AM FORGING PRESS OPERATOR Inhaled Oxygen Concentration - - Weight - - Height 172.7 cm (5' 8 ) 02/21/2021 9:27 PM FORGING PRESS OPERATOR Body Mass Index - - Plan of Treatment Health Maintenance Due Date Last Done Comments Colorectal Cancer Screening Colonoscopy (10 Years) 1963 Annual Physical 09/26/1966 Hepatitis C 09/26/1981 Zoster Vaccines (1 of 2) 09/26/2013 DTaP, Tdap and Td Vaccines (2 - Td or Tdap) 09/14/2016 09/14/2006 COVID-19 Vaccine ( season) 2023 07/12/2021, 12/13/2020, 05/31/2020, Additional history exists Influenza Adult (#1) 2023 12/13/2020, 11/29/2018, 12/12/2017, Additional history exists RSV Immunization or 60+ Years (1 - 1-dose 75+ series) 09/26/2038 Pneumococcal Vaccine: Pediatrics (0 to 5 Years) and At-Risk Patients (6 to 64 Years) Aged Out 12/12/2018, 03/27/2012 No longer eligibl e based on patient's age to complete this topic Meningococcal B Vaccine Aged Out No l onger eligible based on patient's age to complete this topic Meningococcal Vaccine Aged Out No raimundo baljit eligible based on patient's age to complete this topic RSV Immunizations Under 20 Months Aged Out No longer eligible based on patient's age to complete this topic Insurance [facility] Care Teams Injection Molder Relationship Specialty Start Date End Date Giorgio Lee MD PCP - General FAMILY PRACTICE 12/18/20
--- OUTSIDE RECORDS SUMMARY | 2024-05-10 12:16 | XMS_ITS | Clinical Summary ---
Author Organization [facility] Address [address] [place] [address] Phone Care Team Providers Care Graduate Fellow Name Role Phone WILIAM PHILLIPS, LUCY JUNG [facility] [phone] Reason for Visit and Chief Complaint [Patient Encounter] Problems Includes: Problems addressed during this encounter and other active Problems All Visits Onset Date Resolved Date Provider Condition S tatus Narcolepsy 10/05/2014 Active Last Documented On 3 5:48PM ; [facility] Diabetes Mellitus 07/19/2012 Active Last Documented On 3 5:45PM ; [facility] 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 Last Documented On 3 5:45PM ; [facility] Major Depression, Recurrent 07/19/2012 Active Last Documented On 3 5:45PM ; [facility] Restless Legs Syndrome 07/19/2012 Ac tive Last Documented On 3 5:45PM ; [facility] Obsessive Compulsive Disorder 03/08/2012 Active Last Documented On 3 5:50PM ; [facility] Generalized Anxiety Disorder 03/08/2012 Active Last Documented On 3 5:42PM ; [facility] Gerd 03/08/2012 Active Last Documented On 3 5:42PM ; [facility] Hyperlipidemia 03/08/2012 Active Last Documented On 3 5:42PM ; [facility] Nephrolithiasis 03/08/2012 Active Last Documented On 3 5:42PM ; [facility] Plan of Treatment Future Appointments Date Time Location Provi conrad [facility] ESTABLISHED 06/20/2024 4:40PM [facility] LUCY STILL MD Last Documented On 5:56PM ; [facility] Assessments Includes: Assessments from this encounter No Assessments Recorded Medical Equipment - Implanted Devices Includes: Current Devices No Medical Equipment Recorded Medications Includes: Medications discussed during this encounter and other current Medications Current Medications (continue as prescribed) Paxil 40 MG Oral Tablet 06/21/2023 Provider: BRIONNA STILL MD Diagnosis: Obsessive-compul sive disorder, unspecified TAKE 1 AND 1/[address] [facility] DAILY DIRECTED Last Documented On 06/21/2023 5:42PM By Yajaira Still MD ; [facility] busPIRone HCl 15 MG Oral Tablet 06/20/2023 Provider: LUCY STILL MD Diagnosis: Generalized anxi ety disorder One tablet twice a day Last Documented On 06/20/2023 10:49AM By Yajaira Still MD ; [facility] Pramipexole Dihydrochloride 1 MG Oral Tablet 04/20/2023 Provider: NICOLA Archibald Diagnosis: 1 and 1/2 tab in the evening Last Documented On 06/21/2023 5:48PM By Yajaira Still MD ; [facility] Fish Oil 1200 MG Oral Capsule 12/23/2022 Provider: Diagnosis: 3 caps daily Last Documented On 12/23/2022 4:48PM By ELISEO BARCENAS ; [facility] oxyBUTYnin Chloride ER 15 MG Oral Tablet Extended Release 24 Hour 11/15/2022 Provider: LAYO RUGGIERO MD Diagnosis: 1 tab daily Last Documented On 12/23/2022 4:48PM By ELISEO BARCENAS ; [facility] Januvia 100 MG OR TABS 10/02/2021 Provider: Diagnosis: 1 tab daily Last Documented On 07/03/2022 5:27PM By ELISEO BARCENAS ; [facility] FeroSul 325 (65 Fe) MG OR TABS 05/28/2021 Provider: Diagnosis: 1 tab daily Last Documented On 07/03/2022 5:27PM By ELISEO BARCENAS ; [facility] EPINEPHrine 0.3 MG/0.3ML IJ SOAJ 2020 Provider : Diagnosis: use as directed Last Documented On 07/03/2022 5:27PM By ELISEO BARCENAS ; [facility] Rosuvastatin Calcium 10 MG OR TABS 06/18/2019 Provid er: Diagnosis: one tablet daily Last Documented On 07/03/2022 5:27PM By JENNIFER CARMICHAEL ; [facility] Modafinil 200 MG OR TABS 07/24/2018 Provider: MET SHELDON STILL MD Diagnosis: Obstructive slee p apnea (adult) (pediatric) as directed -- 1 tab in am Last Documented On 07/03/2022 5:27PM By Yajaira Still MD ; [facility] Amphetamine-Dextroamphetamin e 30 MG OR TABS 01/01/2016 Provider: LUCY STILL MD Diagnosis: Sleep apnea, unspecified as directed Take 1/2 tablet in am and 1/2 tab at 2: 30 pm Last Documented On 07/03/2022 5:27PM By Yajaira Still MD ; [facility] PA Vitamin D-3 25 MCG (1000 UT) OR TABS 01/01/2015 P rovider: Diagnosis: Last Documented On 07/03/2022 5:27PM By Yajaira Still MD ; [facility] metFORMIN HCl 1000 MG TABS 07/19/2012 Provider: Diagnosis: Last Documented On 07/03/2022 5:27PM By VALENTINO GOLD ; [facility] Omeprazole 20 MG OR CPDR 03/08/2012 Provider: Diagnosis: Last Documented On 07/03/2022 5:27PM By VALENTINO GOLD ; [facility] Medications Administered Includes: Administered Medications from this encounter No Administered Medications Recorded Vital Signs Includes: Vital Signs from this encounter Vital Name 12/23/2021 04:49P Blood Pressure Sitting (mmHg) 125/85 BP Cuff Size Regular Pulse Rate-Sitting (bpm) 95 Pulse Rhythm Regular Height (in) 67.5 Weight (lb) 173 Body Mass Index 26.7 Body Surface Area 1.9 Note: self reported vitals Last Documented: On 07/03/2022 6:00PM ; [facility] Results Includes: Results discussed during this [...] Active Last Documented On 06/21/2023 4:56PM ; [facility] Note: Imported from external source. Cipro Allergy 12/20/2018 Active Last Documented On 06/21/2023 4:56PM ; [facility] Note: Imported from external source. Cipro Allergy Hives / Urticaria 12/20/2018 R esolved Last Documented On 4:47PM ; [facility] Aspartame Allergy Skin Rashes / Eruption of skin 06/29/2018 Active Last Documented On 06/21/2023 4:56PM ; [facility] Note: Imported from external source. Encounters Encounter Provider Location Date Check-In Time Check-Out Time Diagnosis [Patient Encounter] 12/23/2021 12:00AM 11:59PM Insurance Includes: Active Insurance Policies Plan Name Member ID Group # Subscriber Relationship Effect refugio Dates 1 - [facility] [id number] MARYAM MUNOZ 03/10/2020 - Unknown Clinical Notes Includes: Clinical Notes from this encounter No Clinical Notes Recorded
--- OUTSIDE RECORDS SUMMARY | 2024-05-10 12:16 | XMS_ITS | Clinical Summary ---
Author Organization [facility] Medical Office Building B Address [address] [place] [address] Care Team Providers Care Opal Miner Name Role Phone Giorgio Lee MD Primary Care Provider [phone] Allergies Active Allergy Reactions Criticality Noted Date Comments Aspartame Anaphylaxis,Diarrhe a,Flushing (skin),Hives,Itchin g,Nausea & Vomiting,Rash,Redne ss,Stomach upset High 03/07/2012 Chloramphenicol Other (See comments) Reaction: UNKNOWN CHILDHOOD, Ciprofloxacin Other (See comments) Low Reaction: Loperamide-Simethicone Urticaria Medium 12/31/2020 Loperamide Rash Reaction: RASH Penicillins Other (See comments) Low Reaction: Reaction: UNKNOWN CHILDHOOD, , , , Propoxyphene Other (See comments) Low Reaction: Propoxyphene-Acetaminophe n Rash Reaction: RASH Medications rosuvastatin (CRESTOR) 10 mg tablet take 1 tablet (10MG) by ORAL route every bedtime 0 0 Active busPIRone (BUSPAR) 15 mg tablet take 1 tablet (15MG) by ORAL route 2 times every day 0 0 Active Additional Information Patient taking differently: 30 mg Daily, Reported on 07/28/2018 omeprazole (PriLOSEC) 20 mg capsule take 1 capsule by oral route every day before a meal 0 0 6 Active omega 1-yia-xwv-fish oil (FISH OIL) 360-1,200 mg capsule,delayed release(DR/EC) 3 DAILY 0 0 4 Active metFORMIN (GLUCOPHAGE) 1,000 mg tablet take 1 tablet (1000MG) by oral route 2 times every day with morning and evening meals 180 0 2 Active cholecalciferol (VITAMIN D-3) 1,000 unit capsule Take 1,000 Units by mouth daily Active dextroamphetami ne-amphetamine (AdderalL) 30 mg tablet 5 Active modafiniL (PROVIGIL) 200 mg tablet 1 0 Active PARoxetine (PAXIL) 40 mg tablet 8 Active pramipexole (MIRAPEX) 0.5 mg tablet TAKE 1 AND 1/2 TABLETS BY MOUTH EVERY NIGHT AT BEDTIME 135 tablet 3 0 Active Myrbetriq 25 mg tablet extended release 24 hr 1 Active EPINEPHrine (EpiPen) 0.3 mg/0.3 mL auto-injection syringeIndicati ons:Anaphylaxis , initial encounter Inject 0.3 mL (0.3 mg total) into the muscle as instructed once for 1 dose 1 each 1 1 Active Active Problems Problem Noted Date Diagnosed Date Personal history of colonic polyps 12/06/2022 Encounter for post surgical wound check 09/08/19 21 Assessment & Plan (09/07/2020 4:22 PM CDT): Incision is intact. Sutures in place Unsure if the bruising is expected. Encouraged patient to take a picture and send to the surgeon to have him look at it. There is no redness or drainage.. Patient agrees with plan. 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 Syncope 11/05/2012 Overview (06/09/2016): Syncope Obsessive-compulsive disorder 11/05/2012 Overview (06/11/2016): OCD (obsessive compulsive disorder) Calculus of kidney 11/05/2012 Overview (06/11/2016): Nephrolithiasis Type 2 diabetes mellitus 02/10/2012 Overview (06/09/2016): DMII WO CMP NT ST UNCNTR Periodic limb movement disorder 07/15/2011 Overview (06/09/2016): Periodic limb movement disorder (PLMD) Hypersomnia with sleep apnea 07/15/2011 Overview (06/09/2016): Hypersomnia with sleep apnea Adiposity 07/15/2011 Overview (06/11/2016): Obesity Abdirizak-Carmona respiration 07/15/2011 Overview (06/11/2016): Abdirizak-Carmona respiration Obstructive sleep apnea syndrome in adult 2011 Overview (06/11/2016): Obstructive sleep apnea syndrome in adult 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 Overview (06/09/2016): LISA (obstructive sleep apnea) Hyperlipidemia 08/06/2003 Overview (06/11/2016): Hyperlipidemia Resolved Problems Problem Noted Date Diagnosed Date Resolved Date Narcolepsy and cataplexy 10/22/2016 Immunizations Immunization Administration Dates Next Due Pneumococcal Polysaccharide PPV23 03/27/2012 Tdap 09/14/2006 Surgical History Surgery Date Site/Laterality Comments CHOLECYSTECTOMY 03/07/2010 - 03/06/2011 Cholecystectomy COLONOSCOPY 11/21/2013 COLONOSCOPY 07/28/2018 POLYPECTOMY TRIGGER FINGER RELEASE 09/02/2020 Right RELEASE RIGHT TRIGGER THUMB Medical History Medical History Date Comments Hx Other Medical Kidney stones ( frequent) Hx Other Medical OCD Sleep apnea sleep apnea Hx Other Medical 1992 +PPD comp leted 6 mon INH Hx Other Medical 1994 Kidney stone Hyperlipidemia Type 2 diabetes mellitus (HCC) Restless legs syndrome (RLS) Colon polyp OCD (obsessive compulsive disorder) History of kidney stones Hyperlipidemia RLS (restless legs syndrome) High cholesterol OCD (obsessive compulsive disorder) Family History Medical History Relation Name Comments Diabetes Brother 2 Diabetes mellit us; Diabetes Brother 3 Diabetes mellit us; Asthma Father Asthma; Cancer Father Cancer; Colon cancer Father Other Father Cancer - prosta te, lung, colon; Diabetes Father's Brother 1 Diabetes mellitus; Colon cancer Father's Brother 2 Cancer, c olon; Coronary artery disease Father's Brother 3 Coronary artery disease, premature; Migraines Mother Migraines; /Caleb zeferino; Stroke Mother Stroke; Transient ischemic attack Mother Tr ansient ischemic attack; Relation Name Status Comments Brother 1 Alive Brother 2 Brother 3 Father Father's Brother 1 Father's Brother 2 Father's Brother 3 Mother Alive Social History Tobacco Use Types Packs/Day Years Used Date Smoking Tobacco: Never Smokeless Tobacco: Never Alcohol Use Standard Drinks/Week Comments No 0 (1 standard drink = 0.6 oz pur e alcohol) AUDIT-C Answer Date Recorded Q1: How often do you have a drink containing alc ohol? Never 09/02/2020 Average Number of Drinks Not on file 021 Q3: How often do you have si x or more drinks on one occasion? Never 09/02/2020 Sex and Gender Information Value Date Recorded Sex Assigned at Not on file Legal Sex Male 11:57 PM BASKET BOTTOM MACHINE OPERATOR Gender Identity Male 01/13/2019 7:57 PM BASKET BOTTOM MACHINE OPERATOR Sexual Orientation Straight 01/13/2019 7: 57 PM BASKET BOTTOM MACHINE OPERATOR Obstetrics History Last Filed Vital Signs Vital Sign Reading Time Taken Comments Blood Pressure 120/73 12/31/2020 1:17 PM CDT Pulse 92 12/31/2020 1:17 PM CDT Temperature 36.5 C (97.7 F) 12/31/2020 1:17 PM CDT Respiratory Rate 18 12/31/2020 1:17 PM CDT Oxygen Saturation 97% 12/31/2020 1:17 PM CDT Inhaled Oxygen Concentration - - Weight 80.5 kg (177 lb 6.4 oz) 12/31/2020 1:17 P M CDT Height 172.7 cm (5' 8 ) 12/31/2020 1:17 PM CDT Body Mass Index 26.97 12/31/2020 1:17 PM CDT Plan of Treatment Health Maintenance Due Date Last Done Comments Albumin Creatinine Ratio, Urine 1965 Depression Screening 1965 Hemoglobin A1C 1965 Hepatitis C Screening 1965 Prostate Cancer Screening-PSA 1965 Dilated Eye Exam 1965 Foot Exam 1965 Regular Well Visit/Exam 18-64 09/26/1981 Zoster Vaccine (1 of 2) 09/26/2013 Lipid Panel 04/07/2014 04/07/2013 DTaP/Tdap/Td Vaccine (2 - Td or Tdap) 09/14/2016 09/14/2006 eGFR 12/12/2017 12/12/2016 Pneumococcal vaccine <65 (2 of 2 - PCV) 12/13/2019 12/12/2018, 03/27/2012 Covid-19 Vaccine (2023-2 5 season) 2023 11/21/2022, 11/12/2021, 07/12/2021, Additional history exists Influenza Vaccine (#1) 2023 3, 11/12/2021, 12/13/2020, Additional history exists Colon Cancer Screening-Colonoscopy 07/28/2028 07/28/2018, 11/21/2013, 11/21/2013 Colon Cancer Screening-CT Colonography Discontinued 07/28/2018, 11/21/2013, 11/21/2013 Colon Cancer Screening-DNA Stool Discontinued 07/28/2018, 11/21/2013, 11/21/2013 Colon Cancer Screening-FIT Discontinued 07/28, 11/21/2013, 11/21/2013 Colon Cancer Screening-Sigmoidoscopy Discontinued 07/28/2018, 11/21/2013, 11/21/2013 Hepatitis B Screening Completed 11/23/2019 , 01/16/2019, 12/12/2018 Procedures Procedure Name Priority Date/Time Associated Diagnosis Comments COLONOSCOPY 07/28/2018 9:02 AM CDT EGFR STAT 12/12/2016 11:06 AM CDT SERUM LIPID PANEL Routine 04/07/2013 8:4 5 PM BASKET BOTTOM MACHINE OPERATOR from Last 3 Months or Most Recently Relevant to Health Maintenance Results * COLONOSCOPY (07/28/2018 9:02 AM CDT) Anatomical Region Laterality Modality Other Narrative Procedure Note Ramo Meza MD - 07/28/2018 9:02 AM CDT [facility] Patient Name: Chuy Mitchell Procedure Date: 07/28/2018 9:02 AM Date of : 1965 Admit Type: Outpatient Age: 52 Gender: Male Attending MD: Ramo Meza M.D. Room: [facility] ENDOSCOPY ROOM 1 Note Status: Finalized Patient Profile: 52 WM, his father and uncle both had colon cancer.he had hyperplastic polyps removed 5 years ago.creening. Procedure: Colonoscopy Indications: Screening in patient at increased risk: Familyhistory of 1st-degree relative with colorectal cancer, High risk colon cancer surveillance: Personal history of colonic polyps, Last colonoscopy: November 2013 Referring MD: Giorgio Lee MD Providers: Ramo Meza M.D. Impression: - Diverticulosis in the sigmoid colon. - One 6 mm polyp in the sigmoid colon, removed witha jumbo cold forceps. Resected and retrieved. - Internal hemorrhoids. Recommendation: - Await pathology results. - Repeat colonoscopy in 3 - 5 years [facility]. - Continue present medications. Medicines: Monitored Anesthesia Care Complications: No immediate complications. Estimated Blood Loss: Estimated blood loss: none. Procedure: Pre-Anesthesia Assessment: - Prior to the procedure, a History and Physical was performed, and patient medications and allergieswere reviewed. The patient's tolerance of previous anesthesia was also reviewed. The risks and benefitsof the procedure and the sedation options and riskswere discussed with the patient. All questions were answered, and informed consent was obtained. Prior Anticoagulants: The patient has taken no previous anticoagulant or antiplatelet agents. ASA Grade Assessment: II - A patient with mild systemicdisease. After reviewing the risks and benefits, the patientwas deemed in satisfactory condition to undergo the procedure. The benefits, risks and alternatives of theprocedure and sedation were discussed and informed consent was obtained. All questions were answered. Please referto the signed informed consent document in the medical record. The scope was passed under direct vision.The Pediatric Colonoscope PCF-H190L [id number] was introduced through the anus and advanced to the the cecum, identified by appendiceal orifice andileocecal valve. The colonoscopy was performed without difficulty. The patient tolerated the procedurewell. The quality of the bowel preparation wasexcellent. Findings: The perianal and digital rectal examinations were normal. The cecum appeared normal. Multiple small-mouthed diverticula were found in the sigmoid colon. A 6 mm polyp was found in the sigmoid colon. The polyp wassemi-sessile. The polyp was removed with a jumbo cold forceps. Resection andretrieval were complete. Internal hemorrhoids were found during retroflexion. The hemorrhoids were medium-sized. Electronically signed by Ramo Meza M.D. Ramo Meza M.D. 07/28/2018 9:38:28 AM Number of Addenda: 0 Note Initiated On: 07/28/2018 9:02 AM Procedure Code(s): --- Professional --- 85192, Colonoscopy, flexible; with biopsy, single or multiple Diagnosis Code(s): --- Professional --- Z80.0, Family history of malignant neoplasm of digestive organs Z86.010, Personal history of colonic polyps K64.8, Other hemorrhoids D12.5, Benign neoplasm of sigmoid colon K57.30, Diverticulosis of large intestine without perforation orabscess without bleeding CPT copyright 2017 [employer]. All rights reserved. The codes documented in this report are preliminary and upon order selector reviewmay be revised to meet current compliance requirements. Recognized by the [employer] [employer] for promoting quality in endoscopy Ramo Meza MD ENDOSCOPY PROCEDURES Final Result * eGFR (12/12/2016 11:06 AM CDT) eGFR >60 mL/min/1.7 3 m2 [facility] ([place]) Comment: Interpretive Data Reference Interval Normal >/= 90 mL/min/1.73m2 Mildly decreased* 60 - 89 mL/min/1.73m2 Mildly to moderately decreased 45 - 59 mL/min/1.73m2 Moderately to severely decreased 30 - 44 mL/min/1.73m2 Severely decreased 15 - 29 mL/min/1.73m2 Kidney Failure < 15 mL/min/1.73m2 *Relative to young adult level If -[place] multiply value by 1.16. Estimated glomerular filtration rate is determined by the CKD-EPI equation recommended by the National Kidney Foundation (KDIGO 2012 Clinical Practice Guideline for the Evaluation and Management of Chronic Kidney Disease. Kidney Intnl Suppl Mar 2012;3:1). The CKD-EPI equation should not be used for patients with unstable renal function and has not been validated in children and those over 70. Current interpretive data was last reviewed 2015. Blood specimen (specimen) 12/12/2016 11:06 AM CDT 12/12/2016 11:13 AM CDT us Eileen Toledo LAB BLOOD ORDERABLES Final Resul t [facility] LOWE [place]) [facility] Department of Laboratories [place], [place] [id number] * (ABNORMAL) Serum lipid panel (04/07/2013 8:45 PM BASKET BOTTOM MACHINE OPERATOR) LDL 54 0 - 129 mg/dl HISTORICAL RESULTS Comment: Interpretive Data Optimal: < 100 mg/dL Near Optimal: 100 - 129 mg/dL Borderline High: 130 - 159 mg/dL High: > 160 mg/dL Literature Reference: See Cholesterol Current interpretive data was last revised on 06. Cholesterol 132 0 - 200 mg/dl HISTORICAL RESULTS Comment: Interpretive Data Desirable: <200 mg/dL Borderline high: 200-239 mg/dL High: >240 mg/dL Literature Reference: National Cholesterol Education Program (NCEP) Expert Panel on Detection, Evaluation, and Treatment of High Blood Cholesterol in Adults (Adult Treatment Panel III). Circulation 2004; 110:227. Current interpretive data was last revised on 2005. Non-HDL cholesterol, calculated 90 mg/dl HISTORICAL RESULTS Comment: Interpretive Data When triglycerides are >200 mg/dL, non-HDL C is a secondary target of therapy, with a goal 30 mg/dL higher than the identified LDL-C goal. Reference: See Cholesterol Reference. Current interpretive data was last revised 2011. Triglycerides 181(H) 0 - 150 mg/dl HISTORICAL RESULTS Comment: Interpretive Data Desirable: < 150 mg/dL Borderline High: 150 - 199 mg/dL High: > 200 mg/dL Literature Reference: See Cholesterol Current interpretive data was last revised on 06. HDL 42 40 - 199 mg/dl HISTORICAL RESULTS Comment: Interpretive Data Less than 40 mg/dL - low; A major risk factor for heart disease. Greater than or equal to 60 mg/dL - High; considered protective of heart disease. Literature Reference: See Cholesterol Current interpretive data was last revised on 2007. Serum 04/07/2013 8:45 PM BASKET BOTTOM MACHINE OPERATOR us Edgar Pratt MD LAB BLOOD ORDERABLES Final Resul t HISTORICAL RESULTS from Last 3 Months or Most Recently Relevant to Health Maintenance Insurance [facility] PLUS [facility] PLUS [facility] PLUS Care Teams Opal Miner Relationship Specialty Start Date End Date Giorgio Lee MD PCP - General 06/04/16
--- OUTSIDE RECORDS SUMMARY | 2024-05-10 12:16 | XMS_ITS ---
Care Plan - [facility] S Created on: May 10, 2024 CHUY MUNOZ : 1965 Sex: Male Author Organization [facility] Medical [facility] S Address [address] [place] [address] Phone Care Team Providers Care Punch Press Operator Name Role Phone LUCY SWAIN MD Unavailable [phone]
--- OUTSIDE RECORDS SUMMARY | 2024-05-10 12:16 | XMS_ITS | Referral Summary ---
Author Organization [facility] Medical Office Building B Address [address] [place] [address] Care Team Providers Care Spinner Fixer Name Role Phone Giorgio Lee MD Primary Care Provider [phone] Allergies Active Allergy Reactions Criticality Noted Date [...] a meal 0 0 6 Active omega 1-cmf-sgn-fish oil (FISH OIL) 360-1,200 mg capsule,delayed release(DR/EC) [...] (06/13/2018): Added automatically from request for surgery [id number] Overweight (BMI 25.0-29.9) 10/22/2016 Hay fever 01/26/2016 [...] Due Pneumococcal Polysaccharide PPV23 03/27/2012 Tdap 09/14/2006 Social History Tobacco Use Types Packs/Day Years [...] on file Legal Sex Male 11:57 PM BRAND MGR Gender Identity Male 01/13/2019 7:57 PM BRAND MGR Sexual Orientation Straight 01/13/2019 7: 57 PM BRAND MGR Last Filed Vital Signs Vital Sign Reading [...] 12/31/2020 1:17 PM CDT Plan of Treatment Not on file Procedures Procedure Name Priority Date/Time Associated Diagnosis Comments COLONOSCOPY 07/28/2018 9:02 AM CDT EGFR STAT 12/12/2016 11:06 AM CDT SERUM LIPID PANEL Routine 04/07/2013 8:4 5 PM BRAND MGR from Last 3 Months or Most Recently Relevant to Health Maintenance Results * COLONOSCOPY (07/28/2018 9:02 AM CDT) Anatomical Region Laterality Modality Other Narrative Procedure Note Ramo Meza MD - 07/28/2018 9:02 AM CDT [facility] Patient Name: Chuy Mitchell Procedure Date: 07/28/2018 9:02 AM Date of : 1965 Admit Type: Outpatient Age: 52 Gender: Male Attending MD: Ramo Meza M.D. Room: [facility] ENDOSCOPY ROOM 1 Note Status: Finalized Patient [...] Repeat colonoscopy in 3 - 5 years forsurveillance. - Continue present medications. Medicines: Monitored Anesthesia [...] passed under direct vision.The Pediatric Colonoscope PCF-H190L [id number] was introduced through the anus and advanced [...] 9:02 AM Procedure Code(s): --- Professional --- 31713, Colonoscopy, flexible; with biopsy, single or multiple Diagnosis Code(s): --- Professional --- Z80.0, Family history of malignant neoplasm of digestive organs Z86.010, Personal history of colonic polyps K64.8, Other hemorrhoids D12.5, Benign neoplasm of sigmoid colon K57.30, Diverticulosis of large intestine without perforation orabscess without bleeding CPT copyright 2017 [employer]. All rights reserved. The codes documented in this report are preliminary and upon optical fabricator reviewmay be revised to meet current compliance requirements. Recognized by the [place] [employer] for promoting quality in endoscopy Ramo Meza MD ENDOSCOPY PROCEDURES Final Result * eGFR (12/12/2016 11:06 AM CDT) eGFR >60 mL/min/1.7 3 m2 [facility] LOWE ([place]) Comment: Interpretive Data Reference Interval Normal >/= 90 mL/min/1.73m2 Mildly decreased* 60 - 89 mL/min/1.73m2 Mildly to moderately decreased 45 - 59 mL/min/1.73m2 Moderately to severely decreased 30 - 44 mL/min/1.73m2 Severely decreased 15 - 29 mL/min/1.73m2 Kidney Failure < 15 mL/min/1.73m2 *Relative to young adult level If -[place] multiply value by 1.16. Estimated glomerular filtration [...] 11:06 AM CDT 12/12/2016 11:13 AM CDT Eileen Toledo LAB BLOOD ORDERABLES Final Resul t [facility]OW[facility] ([place]) 1 [facility] Department of Laboratories [place], [place] [id number] * (ABNORMAL) Serum lipid panel (04/07/2013 8:45 PM BRAND MGR) LDL 54 0 - 129 mg/dl HISTORICAL [...] revised on 2007. Serum 04/07/2013 8:45 PM BRAND MGR Edgar Pratt MD LAB BLOOD ORDERABLES Final Resul t HISTORICAL RESULTS from Last 3 Months or Most Recently Relevant to Health Maintenance Insurance [facility] PLUS Care Teams Spinner Fixer Relationship Specialty Start Date End Date Giorgio Lee MD PCP - General 06/04/16
--- OUTSIDE RECORDS SUMMARY | 2024-05-10 12:17 | XMS_ITS | Clinical Summary ---
Author Organization [facility] Address [address] [place] [id number] Phone Care Team Providers Care Moth Exterminator Name Role Phone WILIAM PHILLIPS, LUCY JUNG Unavailable [phone] Reason for Visit and Chief Complaint * PHONE CALL Problems Includes: Problems addressed during this encounter and other active Problems Current Visit Onset Date Resolved Date Provider Conditio n Status Major Depression, Recurrent 07/19/2012 LUCY STILL MD Active Last Documented On 3 5:16PM ; [facility] Restless Legs Syndrome 07/19/2012 LUCY ALVAREZ MD Active Last Documented On 3 4:33PM ; [facility] Obsessive Compulsive Disorder 03/08/2012 BRADLEY STILL MD Active Last Documented On 0 10:00AM ; [facility] Generalized Anxiety Disorder 03/08/2012 LUCY STILL MD Active Last Documented On 3 2:58PM ; [facility] Obsessive Compulsive Disorder 03/08/2012 BRADLEY STILL MD Inactive Last Documented On 7 9:03PM ; [facility] Past Visits Onset Date Resolved Date Provider Condition Status Narcolepsy 10/05/2014 LUCY STILL MD Ac tive Last Documented On 5 6:20AM ; [facility] Diabetes Mellitus 07/19/2012 LUCY Oleary MD Active Last Documented On 3 4:47PM ; [facility] 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 Nahed STILL MD Active Last Documented On 3 5:05PM ; [facility] Gerd 03/08/2012 LUCY STILL MD Ac tive Last Documented On 3 2:55PM ; [facility] Hyperlipidemia 03/08/2012 LUCY Archibald Active Last Documented On 3 2:56PM ; [facility] Nephrolithiasis 03/08/2012 LUCY STILL MD Active Last Documented On 3 2:58PM ; [facility] Plan of Treatment No Plan of Treatment Recorded Assessments Includes: Assessments from this encounter Findings - Restless legs syndrome - Last Documented On 03/17/2021 2:57PM ; [facility] - Major depression, recurrent - Last Documented On 03/17/2021 2:57PM ; [facility] - Generalized anxiety disorder - Last Documented On 03/17/2021 2:57PM ; [facility] - Obsessive compulsive disorder - Last Documented On 03/17/2021 2:57PM ; [facility] Medical Equipment - Implanted Devices Includes: Current Devices No Medical Equipment Recorded Medications Includes: Medications discussed during this encounter and other current Medications Current Medications (continue as prescribed) Paxil 40 MG Oral Tablet 06/23/2022 Provider: BRIONNA STILL MD Diagnosis: Obsessive-compul sive disorder, unspecified TAKE 1 AND 1/2 TABLETS BY [facility] DAILY DIRECTED Last Documented On 06/23/2022 5:34PM By Yajaira Still MD ; [facility] Gemtesa 75 MG Oral Tablet 06/23/2022 Provider: Diagnosis: 1 tab daily Last Documented On 06/23/2022 4:50PM By ELISEO BARCENAS ; [facility] Januvia 100 MG Oral Tablet 10/02/2021 Provider: Diagnosis: 1 tab daily Last Documented On 12/23/2021 4:46PM By ELISEO BARCENAS ; [facility] FeroSul 325 (65 Fe) MG Oral Tablet 05/28/2021 Provid er: Diagnosis: 1 tab daily Last Documented On 06/16/2021 4:55PM By ELISEO BARCENAS ; [facility] EPINEPHrine 0.3 MG/0.3ML Injection Solution Auto-injec tor 2020 Provider: Diagnosis: use as directed Last Documented On 12/18/2020 4:48PM By ELISEO BARCENAS ; [facility] Pramipexole Dihydrochloride 1 MG Oral Tablet 06/06/2020 Provider: NICOLA Archibald Diagnosis: patient takes 0.75 mg at bedtime Last Documented On 06/19/2020 4:58PM By ELISEO BARCENAS ; [facility] Rosuvastatin Calcium 10 MG Oral Tablet 06/18/2019 Pr ovider: NICOLA ANAYA MD Diagnosis: one tablet daily Last Documented On 06/20/2019 4:49PM By JENNIFER CARMICHAEL ; [facility] Modafinil 200MG Oral Tablet 07/24/2018 Provider: LUCY STILL MD Diagnosis: Obstructive slee p apnea (adult) (pediatric) as directed -- 1 tab in am Last Documented On 07/24/2018 7:44AM By Yajaira Still MD ; [facility] Amphetamine-Dextroamphetamin e 30 MG Tablet 01/01/2016 Provider: LUCY STILL MD Diagnosis: Sleep apnea, unspecified as directed Take 1/2 tablet in am and 1/2 tab at 2: 30 pm Last Documented On 01/01/2016 5:30PM By Yajaira Still MD ; [facility] PA Vitamin D-3 1000 UNIT Tablet 01/01/2015 Provider: Diagnosis: Last Documented On 01/01/2015 2:20PM By Yajaira Still MD ; [facility] Fish Oil 1200 MG OR CAPS 01/17/2013 Provider: Diagnosis: Last Documented On 3 4:44PM By VALENTINO BARCENAS ; [facility] metFORMIN HCl 1000 MG TABS 07/19/2012 Provider: Diagnosis: Last Documented On 3 4:51PM By VALENTINO GOLD ; [facility] Omeprazole 20 MG OR CPDR 03/08/2012 Provider: Diagnosis: Last Documented On 3 2:55PM By VALENTINO GOLD ; [facility] Suspended Medications busPIRone HCl 15 MG Oral Tablet 06/23/2022 Provider: LUCY STILL MD Diagnosis: Generalized anxi ety disorder One tablet twice a day Last Documented On 06/23/2022 5:36PM By Yajaira Still MD ; [facility] Past Medications on file busPIRone HCl 7.5 MG OR TABS 03/17/2018 - 04/16/2018 P rovider: Diagnosis: Major depressive disorder, recurrent, moderate 2 tablets twice a day Last Documented On 03/17/2018 9:59AM By ELISEO BARCENAS ; [facility] Nuvigil 250 MG Tablet 03/31/2015 - 04/14/2015 Provider: LUCY TOMAS MD Diagnosis: Obstructive slee p apnea (adult) (pediatric) 1 tablet every morning --14 samples for pickle processor 03/31/15 Last Documented On 03/31/2015 1:00PM By Yajaira Still MD ; [facility] Medications Administered Includes: Administered Medications from this encounter No Administered Medications Recorded Results Includes: Results discussed during this encounter [...] Active Last Documented On 06/21/2023 4:56PM ; [facility] Note: Imported from external source. Cipro Allergy 12/20/2018 Active Last Documented On 06/21/2023 4:56PM ; [facility] Note: Imported from external source. Cipro Allergy Hives / Urticaria 12/20/2018 R esolved Last Documented On 4:47PM ; [facility] Aspartame Allergy Skin Rashes / Eruption of skin 06/29/2018 Active Last Documented On 06/21/2023 4:56PM ; [facility] Note: Imported from external source. Encounters Encounter Provider Location Date Check-In Time Check-Out Time Diagnosis * PHONE CALL LUCY STILL MD [facility] 03/17/19 22 2:40PM 11:59PM Major Depression, Recurrent,Gene ralized Anxiety Disorder,Obses sive Compulsive Disorder,Restl ess Legs Syndrome Insurance Includes: Active Insurance Policies Plan Name Member ID Group # Subscriber Relationship Effect refugio Dates 1 - [facility] [id number] MARYAM MUNOZ 03/10/2020 - Unknown Clinical Notes Includes: Clinical Notes from this encounter No Clinical Notes Recorded
--- OUTSIDE RECORDS SUMMARY | 2024-05-10 12:17 | XMS_ITS ---
Care Plan - [facility] Created on: May 10, 2024 CHUY MUNOZ : 1965 Sex: Male Author Organization [facility] Address [address] [place] [address] Phone Care Team Providers Care Washroom Operator Name Role Phone WILIAM PHILLIPS, LUCY JUNG [facility] [phone]
--- OUTSIDE RECORDS SUMMARY | 2024-05-10 12:17 | XMS_ITS | Encounter Summary ---
Author Organization [facility] Address [address] [place] [address] Care Team Providers Care Manager Retail Store Name Role Phone Giorgio Lee MD Primary Care Provider [phone] Giorgio Lee MD Primary Care Provider [phone] Giorgio Lee MD Primary Care Provider [phone] Encounter Details Date Type Department Care Team (Late st Contact Info) Description 04/24/2012 Orders Only [facility] [facility] [address] [place] [address] Scanning, Provider Social History Tobacco Use Types Packs/Day Years Used Date Smoking Tobacco: Never Assessed Sex and Gender Information Value Date Recorded Sex Assigned at Not on file Legal Sex Male 11:57 PM [employer] Gender Identity Male 01/13/2019 7:57 PM [employer] Sexual Orientation Straight 01/13/2019 7: 57 PM [employer] GR[employer]ER documented as of this encounter Plan of Treatment Not on file documented as of this encounter Procedures Procedure Name Priority Date/Time Associated Diagnosis Comments GI - RESULT 04/24/2012 SCAN - PATHOLOGY 04/24/2012 documented in this encounter Results * SCAN - PATHOLOGY (04/24/2012) us Provider Scanning Final Result * GI - RESULT (04/24/2012) Anatomical Region Laterality Modality Other us Provider Scanning Final Result documented in this encounter Visit Diagnoses Not on filedocumented in this encounter Care Teams Manager Retail Store Relationship Specialty Start Date End Date Giorgio Lee MD PCP - General 06/04/16 Giorgio Lee MD PCP - General 01/14/14 06/03/16 Giorgio Lee MD PCP - General 10/03/09 01/13/14 documented as of this encounter
--- OUTSIDE RECORDS SUMMARY | 2024-05-10 12:17 | XMS_ITS ---
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 G[facility] 03/08/2012 LUCY STILL MD Ac tive Last Documented On 3 2:55PM ; [facility] Hyperlipidemia 03/08/2012 LUCY Archibald Active Last Documented On 3 2:56PM ; [facility] Obsessive Compulsive Disorder 03/08/2012 BRADLEY STILL MD Inactive Last Documented On 7 9:03PM ; [facility] Nephrolithiasis 03/08/2012 LUCY STILL MD Active Last Documented On 3 2:58PM ; [facility] Plan of Treatment Instructions to patient Lose weight Last Documented On 1 4:49PM ; [facility] Lose weight Last Documented On 1 4:56PM ; [facility] Education and Decision Aids were provided during visit for: Patient education about medi cation ---Education was given on medication(s) and diagnosis. I reviewed the risks, benefits and side effects of patient's medications Last Documented On 3 4:33PM ; [facility] Patient education about medi cation ---Education was given on medication(s) and diagnosis. I reviewed the risks, benefits and side effects of patient's medications. Pt reported no side effects with meds Last Documented On 2 7:18PM ; [facility] Patient education about medi cation --- I educated patient on medication(s) and diagnosis. I reviewed the risks, benefits and side effects of patient's medications Last Documented On 2 4:43PM ; [facility] Discussed calming techniques such as breathing exercises and other relaxation techniques Last Documented On 2 4:43PM ; [facility] Counseling for nutrition/rodrigo ght management provided Last Documented On 2 4:55PM ; [facility] Patient education about medi cation --- I educated patient on medication(s) and diagnosis. I reviewed the risks, benefits and side effects of patient's medications Last Documented On 1 4:34PM ; [facility] Discussed calming techniques such as breathing exercises and other relaxation techniques Last Documented On 1 4:34PM ; [facility] Counseling for nutrition/rodrigo ght management provided Last Documented On 1 4:49PM ; [facility] Patient education about medi cation --- I educated patient on medication(s) and diagnosis. I reviewed the risks, benefits and side effects of patient's medications Last Documented On 1 4:39PM ; [facility] Discussed calming techniques such as breathing exercises and other relaxation techniques Last Documented On 1 4:39PM ; [facility] Counseling for nutrition/rodrigo ght management provided Last Documented On 1 4:56PM ; [facility] Patient education about medi cation --- I educated patient on medication(s) and diagnosis. I reviewed the risks, benefits and side effects of patient's medications Last Documented On 0 4:36PM ; [facility] Discussed calming techniques such as breathing exercises and other relaxation techniques Last Documented On 0 4:36PM ; [facility] Counseling for nutrition/rodrigo ght management provided Last Documented On 0 4:51PM ; [facility] Patient education about a pr oper diet Last Documented On 0 8:27AM ; [facility] Patient education about medi cation --- I educated patient on medication(s) and diagnosis. I reviewed the risks, benefits and side effects of patient's medications Last Documented On 0 4:39PM ; [facility] Discussed calming techniques such as breathing exercises and other relaxation techniques Last Documented On 0 4:39PM ; [facility] Patient education about a pr oper diet Last Documented On 9 4:47PM ; [facility] Patient education about medi cation --- I educated patient on medication(s) and diagnosis. I reviewed the risks, benefits and side effects of patient's medications Last Documented On 9 4:34PM ; [facility] Discussed calming techniques such as breathing exercises and other relaxation techniques Last Documented On 9 4:34PM ; [facility] Patient education about a pr oper diet Last Documented On 9 4:52PM ; [facility] Patient education about medi cation --- I educated patient on medication(s) and diagnosis. I reviewed the risks, benefits and side effects of patient's medications Last Documented On 9 4:31PM ; [facility] Discussed calming techniques such as breathing exercises and other relaxation techniques Last Documented On 9 4:31PM ; [facility] Counseling for nutrition/rodrigo ght management provided Last Documented On 9 4:52PM ; [facility] Patient education about a pr oper diet Last Documented On 8 4:33PM ; [facility] Patient education about medi cation --- I educated patient on medication(s) and diagnosis. I reviewed the risks, benefits and side effects of patient's medications Last Documented On 8 4:32PM ; [facility] Counseling for nutrition/rodrigo ght management provided Last Documented On 8 2:20PM ; [facility] Discussed good sleep hygiene habits --was encouraged not to stay up late at night Last Documented On 8 2:20PM ; [facility] Patient education about medi cation --- I educated patient on medication(s) and diagnosis. I reviewed the risks, benefits and side effects of patient's medications Last Documented On 8 4:38PM ; [facility] Discussed calming techniques such as breathing exercises and other relaxation techniques Last Documented On 8 4:38PM ; [facility] Counseling for nutrition/rodrigo ght management provided Last Documented On 8 7:11AM ; [facility] Patient education about medi cation --- I educated patient on medication(s) and diagnosis. I reviewed the risks, benefits and side effects of patient's medications Last Documented On 7 4:32PM ; [facility] Discussed calming techniques such as breathing exercises and other relaxation techniques Last Documented On 7 4:32PM ; [facility] Counseling for nutrition/rodrigo ght management provided Last Documented On 7 8:56AM ; [facility] Patient education about medi cation --- I educated patient on medication(s) and diagnosis. I reviewed the risks, benefits and side effects of patient's medications Last Documented On 7 4:34PM ; [facility] Discussed calming techniques such as breathing exercises/meditation and other relaxation techniques Last Documented On 7 4:34PM ; [facility] Counseling for nutrition/rodrigo ght management provided Last Documented On 7 12:10PM ; [facility] Patient education about medi cation --- I educated patient on medication(s) and diagnosis. I reviewed the risks, benefits and side effects of patient's medications Last Documented On 6 4:32PM ; [facility] Discussed calming techniques such as breathing exercises/meditation and other relaxation techniques Last Documented On 6 4:32PM ; [facility] Counseling for nutrition/rodrigo ght management provided Last Documented On 6 9:43AM ; [facility] Patient education about medi cation --- I educated patient on medication(s) and diagnosis. I reviewed the risks, benefits and side effects of patient's medications Last Documented On 6 4:34PM ; [facility] Discussed calming techniques such as breathing exercises/meditation and other relaxation techniques Last Documented On 6 4:34PM ; [facility] Counseling for nutrition/rodrigo ght management provided Last Documented On 6 5:44PM ; [facility] Patient education about medi cation --- I educated patient on medication(s) and diagnosis. I reviewed the risks, benefits and side effects of patient's medications Last Documented On 5 2:03PM ; [facility] Discussed calming techniques such as breathing exercises/meditation and other relaxation techniques Last Documented On 5 2:03PM ; [facility] Counseling for nutrition/rodrigo ght management provided Last Documented On 5 6:24AM ; [facility] Discussed good sleep hygiene habits Last Documented On 5 6:24AM ; [facility] Patient education about medi cation --- I educated patient on medication(s) and diagnosis. I reviewed the risks, benefits and side effects of patient's medications Last Documented On 5 6:30PM ; [facility] Discussed calming techniques such as breathing exercises/meditation and other relaxation techniques Last Documented On 5 4:34PM ; [facility] Counseling for nutrition/rodrigo ght management provided Last Documented On 5 5:33PM ; [facility] Patient education about medi cation --- I educated patient on medication(s) and diagnosis. I reviewed the risks, benefits and side effects of patient's medications Last Documented On 4 6:15PM ; [facility] Discussed calming techniques such as breathing exercises/meditation and other relaxation techniques Last Documented On 4 4:38PM ; [facility] Counseling for nutrition/rodrigo ght management provided Last Documented On 4 6:15PM ; [facility] Patient education about medi cation --- I educated patient on medication(s) and diagnosis. I reviewed the risks, benefits and side effects of patient's medications Last Documented On 4 11:38PM ; [facility] Discussed calming techniques such as breathing exercises/meditation and other relaxation techniques Last Documented On 4 4:36PM ; [facility] Counseling for nutrition/rodrigo ght management provided Last Documented On 4 11:38PM ; [facility] Patient education about medi cation --- I educated patient on medication(s) and diagnosis Last Documented On 3 7:02PM ; [facility] Discussed calming techniques such as breathing exercises/meditation and other relaxation techniques Last Documented On 3 4:30PM ; [facility] Discussed calming techniques such as breathing exercises/meditation and other relaxation techniques Last Documented On 3 4:32PM ; [facility] Assessments Includes: Assessments for all patient encounters Findings Encounter Date Generalized anxiety disorder TELEHEALTH with MET SHELDON STILL MD 06/23/2022 Last Documented On 3 8:00AM ; [facility] Major depression, recurrent TELEHEALTH with BRIONNA STILL MD 06/23/2022 Last Documented On 3 8:00AM ; [facility] Obsessive compulsive disorder TELEHEALTH with ME EMANI STILL MD 06/23/2022 Last Documented On 3 8:00AM ; [facility] Restless legs syndrome TELEHEALTH with LUYC STILL MD 06/23/2022 Last Documented On 3 8:00AM ; [facility] Generalized anxiety disorder TELEHEALTH with MET SHELDON STILL MD 12/23/2021 Last Documented On 2 7:20PM ; [facility] Major depression, recurrent TELEHEALTH with BRIONNA STILL MD 12/23/2021 Last Documented On 2 7:20PM ; [facility] Obsessive compulsive disorder TELEHEALTH with ME EMANI STILL MD 12/23/2021 Last Documented On 2 7:20PM ; [facility] Restless legs syndrome TELEHEALTH with LUCY STILL MD 12/23/2021 Last Documented On 2 7:20PM ; [facility] Generalized anxiety disorder TELEHEALTH with MET SHELDON STILL MD 06/16/2021 Last Documented On 2 10:34AM ; [facility] Major depression, recurrent TELEHEALTH with BRIONNA STILL MD 06/16/2021 Last Documented On 2 10:34AM ; [facility] Obsessive compulsive disorder TELEHEALTH with ME EMANI STILL MD 06/16/2021 Last Documented On 2 10:34AM ; [facility] Restless legs syndrome TELEHEALTH with LUCY STILL MD 06/16/2021 Last Documented On 2 10:34AM ; [facility] Generalized anxiety disorder * PHONE CALL with Nahed STILL MD 03/17/2021 Last Documented On 2 2:57PM ; [facility] Major depression, recurrent * PHONE CALL with ME EMANI STILL MD 03/17/2021 Last Documented On 2 2:57PM ; [facility] Obsessive compulsive disorder * PHONE CALL with LUCY STILL MD 03/17/2021 Last Documented On 2 2:57PM ; [facility] Restless legs syndrome * PHONE CALL with LUCY STILL MD 03/17/2021 Last Documented On 2 2:57PM ; [facility] Generalized anxiety disorder TELEHEALTH with MET SHELDON STILL MD 12/18/2020 Last Documented On 1 8:13AM ; [facility] Major depression, recurrent TELEHEALTH with BRIONNA STILL MD 12/18/2020 Last Documented On 1 8:13AM ; [facility] Obsessive compulsive disorder TELEHEALTH with ME EMANI STILL MD 12/18/2020 Last Documented On 1 8:13AM ; [facility] Restless legs syndrome TELEHEALTH with LUCY STILL MD 12/18/2020 Last Documented On 1 8:13AM ; [facility] Generalized anxiety disorder TELEHEALTH with MET SHELDON STILL MD 06/19/2020 Last Documented On 1 9:21AM ; [facility] Major depression, recurrent TELEHEALTH with BRIONNA STILL MD 06/19/2020 Last Documented On 1 9:21AM ; [facility] Obsessive compulsive disorder TELEHEALTH with ME EMANI STILL MD 06/19/2020 Last Documented On 1 9:21AM ; [facility] Restless legs syndrome TELEHEALTH with LUCY STILL MD 06/19/2020 Last Documented On 1 9:21AM ; [facility] Generalized anxiety disorder TELEHEALTH with MET SHELDON STILL MD 12/20/2019 Last Documented On 1 11:49PM ; [facility] Major depression, recurrent TELEHEALTH with BRIONNA STILL MD 12/20/2019 Last Documented On 1 11:49PM ; [facility] Obsessive compulsive disorder TELEHEALTH with ME EMANI STILL MD 12/20/2019 Last Documented On 1 11:49PM ; [facility] Restless legs syndrome TELEHEALTH with LUCY STILL MD 12/20/2019 Last Documented On 1 11:49PM ; [facility] Generalized anxiety disorder TELEHEALTH with MET SHELDON STILL MD 06/20/2019 Last Documented On 0 8:36AM ; [facility] Major depression, recurrent TELEHEALTH with BRIONNA STILL MD 06/20/2019 Last Documented On 0 8:36AM ; [facility] Obsessive compulsive disorder TELEHEALTH with ME EMANI STILL MD 06/20/2019 Last Documented On 0 8:36AM ; [facility] Restless legs syndrome TELEHEALTH with LUCY STILL MD 06/20/2019 Last Documented On 0 8:36AM ; [facility] Generalized anxiety disorder GENERAL OFF ICE VISIT with LUCY STILL MD 12/20/2018 Last Documented On 9 6:10PM ; [facility] Major depression, recurrent GENERAL OFFI CE VISIT with LUCY STILL MD 12/20/2018 Last Documented On 9 6:10PM ; [facility] Obsessive compulsive disorder GENERAL OF FICE VISIT with LUCY STILL MD 12/20/2018 Last Documented On 9 6:10PM ; [facility] Obstructive sleep apnea GENERAL OFFICE VISIT wit h LUCY STILL MD 12/20/2018 Last Documented On 9 6:10PM ; [facility] Generalized anxiety disorder GENERAL OFF ICE VISIT with LUCY STILL MD 06/29/2018 Last Documented On 9 7:45AM ; [facility] Major depression, recurrent GENERAL OFFI CE VISIT with LUCY STILL MD 06/29/2018 Last Documented On 9 7:45AM ; [facility] Obsessive compulsive disorder GENERAL OF FICE VISIT with LUCY STILL MD 06/29/2018 Last Documented On 9 7:45AM ; [facility] Obstructive sleep apnea GENERAL OFFICE VISIT wit h LUCY STILL MD 06/29/2018 Last Documented On 9 7:45AM ; [facility] Generalized anxiety disorder GENERAL OFF ICE VISIT with LUCY STILL MD 12/29/2017 Last Documented On 8 2:27PM ; [facility] Major depression, recurrent GENERAL OFFI CE VISIT with LUCY STILL MD 12/29/2017 Last Documented On 8 2:27PM ; [facility] Obsessive compulsive disorder GENERAL OF FICE VISIT with LUCY STILL MD 12/29/2017 Last Documented On 8 2:27PM ; [facility] Obstructive sleep apnea GENERAL OFFICE VISIT wit h LUCY STILL MD 12/29/2017 Last Documented On 8 2:27PM ; [facility] Generalized anxiety disorder GENERAL OFF ICE VISIT with LUCY STILL MD 06/29/2017 Last Documented On 8 7:12AM ; [facility] Major depression, recurrent GENERAL OFFI CE VISIT with LUCY STILL MD 06/29/2017 Last Documented On 8 7:12AM ; [facility] Obsessive compulsive disorder GENERAL OF FICE VISIT with LUCY STILL MD 06/29/2017 Last Documented On 8 7:12AM ; [facility] Obstructive sleep apnea GENERAL OFFICE VISIT wit LUCY STILL MD 06/29/2017 Last Documented On 8 7:12AM ; [facility] Major depression, recurrent * PHONE CALL with ME EMANI STILL MD 04/26/2017 Last Documented On 8 6:21PM ; [facility] Generalized anxiety disorder GENERAL OFF ICE VISIT with LUCY STILL MD 12/30/2016 Last Documented On 7 9:36AM ; [facility] Major depression, recurrent GENERAL OFFI CE VISIT with LUCY STILL MD 12/30/2016 Last Documented On 7 9:36AM ; [facility] Obsessive compulsive disorder GENERAL OF FICE VISIT with LUCY STILL MD 12/30/2016 Last Documented On 7 9:36AM ; [facility] Obstructive sleep apnea GENERAL OFFICE VISIT wit h LUCY STILL MD 12/30/2016 Last Documented On 7 9:36AM ; [facility] Generalized anxiety disorder GENERAL OFF ICE VISIT with LUCY STILL MD 06/29/2016 Last Documented On 7 12:21PM ; [facility] Major depression, recurrent GENERAL OFFI CE VISIT with LUCY STILL MD 06/29/2016 Last Documented On 7 12:21PM ; [facility] Obsessive compulsive disorder GENERAL OF FICE VISIT with LUCY STILL MD 06/29/2016 Last Documented On 7 12:21PM ; [facility] Obstructive sleep apnea GENERAL OFFICE VISIT wit h LUCY STILL MD 06/29/2016 Last Documented On 7 12:21PM ; [facility] Generalized anxiety disorder GENERAL OFF ICE VISIT with LUCY STILL MD 01/01/2016 Last Documented On 6 9:45AM ; [facility] Major depression, recurrent GENERAL OFFI CE VISIT with LUCY STILL MD 01/01/2016 Last Documented On 6 9:45AM ; [facility] Obsessive compulsive disorder GENERAL OF FICE VISIT with LUCY STILL MD 01/01/2016 Last Documented On 6 9:45AM ; [facility] Obstructive sleep apnea GENERAL OFFICE VISIT wit h LUCY STILL MD 01/01/2016 Last Documented On 6 9:45AM ; [facility] Generalized anxiety disorder GENERAL OFF ICE VISIT with LUCY STILL MD 07/01/2015 Last Documented On 6 7:59PM ; [facility] Major depression, recurrent GENERAL OFFI CE VISIT with LUCY STILL MD 07/01/2015 Last Documented On 6 7:59PM ; [facility] Obsessive compulsive disorder GENERAL OF FICE VISIT with LUCY STILL MD 07/01/2015 Last Documented On 6 7:59PM ; [facility]nea GENERAL OFFICE VISIT wit h LUCY STILL MD 07/01/2015 Last Documented On 6 7:59PM ; [facility] Obstructive sleep apnea SECURE MESSAGE with AR EMANI STILL MD 03/31/2015 Last Documented On 6 1:09PM ; [facility] Generalized anxiety disorder GENERAL OFF ICE VISIT with LUCY STILL MD 01/01/2015 Last Documented On 5 6:30AM ; [facility] Major depression, recurrent GENERAL OFFI CE VISIT with LUCY STILL MD 01/01/2015 Last Documented On 5 6:30AM ; [facility] Obsessive compulsive disorder GENERAL OF FICE VISIT with LUCY STILL MD 01/01/2015 Last Documented On 5 6:30AM ; [facility] Obstructive sleep apnea GENERAL OFFICE VISIT wit h LUCY STILL MD 01/01/2015 Last Documented On 5 6:30AM ; [facility] Generalized anxiety disorder GENERAL OFF ICE VISIT with LUCY STILL MD 07/18/2014 Last Documented On 5 6:36PM ; [facility] Major depression, recurrent GENERAL OFFI CE VISIT with LUCY STILL MD 07/18/2014 Last Documented On 5 6:36PM ; [facility] Obsessive compulsive disorder GENERAL OF FICE VISIT with LUCY STILL MD 07/18/2014 Last Documented On 5 6:36PM ; [facility] Obstructive sleep apnea GENERAL OFFICE VISIT wit h LUCY STILL MD 07/18/2014 Last Documented On 5 6:36PM ; [facility] Generalized anxiety disorder GENERAL OFF ICE VISIT with LUCY STILL MD 01/18/2014 Last Documented On 4 6:16PM ; [facility] Major depression, recurrent GENERAL OFFI CE VISIT with LUCY STILL MD 01/18/2014 Last Documented On 4 6:16PM ; [facility] Obsessive compulsive disorder GENERAL OF FICE VISIT with LUCY STILL MD 01/18/2014 Last Documented On 4 6:16PM ; [facility] Obstructive sleep apnea GENERAL OFFICE VISIT wit h LUCY STILL MD 01/18/2014 Last Documented On 4 6:16PM ; [facility] Generalized anxiety disorder GENERAL OFF ICE VISIT with LUCY STILL MD 07/17/2013 Last Documented On 4 11:39PM ; [facility] Major depression, recurrent GENERAL OFFI CE VISIT with LUCY STILL MD 07/17/2013 Last Documented On 4 11:39PM ; [facility] Obsessive compulsive disorder GENERAL OF FICE VISIT with LUCY STILL MD 07/17/2013 Last Documented On 4 11:39PM ; [facility] Obstructive sleep apnea GENERAL OFFICE VISIT wit h LUCY STILL MD 07/17/2013 Last Documented On 4 11:39PM ; [facility] Generalized anxiety disorder GENERAL OFF ICE VISIT with LUCY STILL MD 01/17/2013 Last Documented On 3 7:21PM ; [facility] Major depression, recurrent GENERAL OFFI CE VISIT with LUCY STILL MD 01/17/2013 Last Documented On 3 7:21PM ; [facility] Obsessive compulsive disorder GENERAL OF FICE VISIT with LUCY STILL MD 01/17/2013 Last Documented On 3 7:21PM ; [facility] Obstructive sleep apnea GENERAL OFFICE VISIT wit h LUCY STILL MD 01/17/2013 Last Documented On 3 7:21PM ; [facility] Restless legs syndrome GENERAL OFFICE VISIT with LUCY STILL MD 01/17/2013 Last Documented On 3 7:21PM ; [facility] Generalized anxiety disorder GENERAL OFF ICE VISIT with LUCY STILL MD 07/19/2012 Last Documented On 3 5:41PM ; [facility] Major depression, recurrent GENERAL OFFI CE VISIT with LUCY STILL MD 07/19/2012 Last Documented On 3 5:41PM ; [facility] Obsessive compulsive disorder GENERAL OF FICE VISIT with LUCY STILL MD 07/19/2012 Last Documented On 3 5:41PM ; [facility] Obstructive sleep apnea GENERAL OFFICE VISIT wit h LUCY STILL MD 07/19/2012 Last Documented On 3 5:41PM ; [facility] Restless legs syndrome GENERAL OFFICE VISIT with LUCY STILL MD 07/19/2012 Last Documented On 3 5:41PM ; [facility] Instructions Includes: Instructions for all patient encounters Instructions to patient Lose weight Last Documented On 1 4:49PM ; [facility] Lose weight Last Documented On 1 4:56PM ; [facility] Education and Decision Aids were provided during visit for: Patient education about medi cation ---Education was given on medication(s) and diagnosis. I reviewed the risks, benefits and side effects of patient's medications Last Documented On 3 4:33PM ; [facility] Patient education about medi cation ---Education was given on medication(s) and diagnosis. I reviewed the risks, benefits and side effects of patient's medications. Pt reported no side effects with meds Last Documented On 2 7:18PM ; [facility] Patient education about medi cation --- I educated patient on medication(s) and diagnosis. I reviewed the risks, benefits and side effects of patient's medications Last Documented On 2 4:43PM ; [facility] Discussed calming techniques such as breathing exercises and other relaxation techniques Last Documented On 2 4:43PM ; [facility] Counseling for nutrition/rodrigo ght management provided Last Documented On 2 4:55PM ; [facility] Patient education about medi cation --- I educated patient on medication(s) and diagnosis. I reviewed the risks, benefits and side effects of patient's medications Last Documented On 1 4:34PM ; [facility] Discussed calming techniques such as breathing exercises and other relaxation techniques Last Documented On 1 4:34PM ; [facility] Counseling for nutrition/rodrigo ght management provided Last Documented On 1 4:49PM ; [facility] Patient education about medi cation --- I educated patient on medication(s) and diagnosis. I reviewed the risks, benefits and side effects of patient's medications Last Documented On 1 4:39PM ; [facility] Discussed calming techniques such as breathing exercises and other relaxation techniques Last Documented On 1 4:39PM ; [facility] Counseling for nutrition/rodrigo ght management provided Last Documented On 1 4:56PM ; [facility] Patient education about medi cation --- I educated patient on medication(s) and diagnosis. I reviewed the risks, benefits and side effects of patient's medications Last Documented On 0 4:36PM ; [facility] Discussed calming techniques such as breathing exercises and other relaxation techniques Last Documented On 0 4:36PM ; [facility] Counseling for nutrition/rodrigo ght management provided Last Documented On 0 4:51PM ; [facility] Patient education about a pr oper diet Last Documented On 0 8:27AM ; [facility] Patient education about medi cation --- I educated patient on medication(s) and diagnosis. I reviewed the risks, benefits and side effects of patient's medications Last Documented On 0 4:39PM ; [facility] Discussed calming techniques such as breathing exercises and other relaxation techniques Last Documented On 0 4:39PM ; [facility] Patient education about a pr oper diet Last Documented On 9 4:47PM ; [facility] Patient education about medi cation --- I educated patient on medication(s) and diagnosis. I reviewed the risks, benefits and side effects of patient's medications Last Documented On 9 4:34PM ; [facility] Discussed calming techniques such as breathing exercises and other relaxation techniques Last Documented On 9 4:34PM ; [facility] Patient education about a pr oper diet Last Documented On 9 4:52PM ; [facility] Patient education about medi cation --- I educated patient on medication(s) and diagnosis. I reviewed the risks, benefits and side effects of patient's medications Last Documented On 9 4:31PM ; [facility] Discussed calming techniques such as breathing exercises and other relaxation techniques Last Documented On 9 4:31PM ; [facility] Counseling for nutrition/rodrigo ght management provided Last Documented On 9 4:52PM ; [facility] Patient education about a pr oper diet Last Documented On 8 4:33PM ; [facility] Patient education about medi cation --- I educated patient on medication(s) and diagnosis. I reviewed the risks, benefits and side effects of patient's medications Last Documented On 8 4:32PM ; [facility] Counseling for nutrition/rodrigo ght management provided Last Documented On 8 2:20PM ; [facility] Discussed good sleep hygiene habits --was encouraged not to stay up late at night Last Documented On 8 2:20PM ; [facility] Patient education about medi cation --- I educated patient on medication(s) and diagnosis. I reviewed the risks, benefits and side effects of patient's medications Last Documented On 8 4:38PM ; [facility] Discussed calming techniques such as breathing exercises and other relaxation techniques Last Documented On 8 4:38PM ; [facility] Counseling for nutrition/rodrigo ght management provided Last Documented On 8 7:11AM ; [facility] Patient education about medi cation --- I educated patient on medication(s) and diagnosis. I reviewed the risks, benefits and side effects of patient's medications Last Documented On 7 4:32PM ; [facility] Discussed calming techniques such as breathing exercises and other relaxation techniques Last Documented On 7 4:32PM ; [facility] Counseling for nutrition/rodrigo ght management provided Last Documented On 7 8:56AM ; [facility] Patient education about medi cation --- I educated patient on medication(s) and diagnosis. I reviewed the risks, benefits and side effects of patient's medications Last Documented On 7 4:34PM ; [facility] Discussed calming techniques such as breathing exercises/meditation and other relaxation techniques Last Documented On 7 4:34PM ; [facility] Counseling for nutrition/rodrigo ght management provided Last Documented On 7 12:10PM ; [facility] Patient education about medi cation --- I educated patient on medication(s) and diagnosis. I reviewed the risks, benefits and side effects of patient's medications Last Documented On 6 4:32PM ; [facility] Discussed calming techniques such as breathing exercises/meditation and other relaxation techniques Last Documented On 6 4:32PM ; [facility] Counseling for nutrition/rodrigo ght management provided Last Documented On 6 9:43AM ; [facility] Patient education about medi cation --- I educated patient on medication(s) and diagnosis. I reviewed the risks, benefits and side effects of patient's medications Last Documented On 6 4:34PM ; [facility] Discussed calming techniques such as breathing exercises/meditation and other relaxation techniques Last Documented On 6 4:34PM ; [facility] Counseling for nutrition/rodrigo ght management provided Last Documented On 6 5:44PM ; [facility] Patient education about medi cation --- I educated patient on medication(s) and diagnosis. I reviewed the risks, benefits and side effects of patient's medications Last Documented On 5 2:03PM ; [facility] Discussed calming techniques such as breathing exercises/meditation and other relaxation techniques Last Documented On 5 2:03PM ; [facility] Counseling for nutrition/rodrigo ght management provided Last Documented On 5 6:24AM ; [facility] Discussed good sleep hygiene habits Last Documented On 5 6:24AM ; [facility] Patient education about medi cation --- I educated patient on medication(s) and diagnosis. I reviewed the risks, benefits and side effects of patient's medications Last Documented On 5 6:30PM ; [facility] Discussed calming techniques such as breathing exercises/meditation and other relaxation techniques Last Documented On 5 4:34PM ; [facility] Counseling for nutrition/rodrigo ght management provided Last Documented On 5 5:33PM ; [facility] Patient education about medi cation --- I educated patient on medication(s) and diagnosis. I reviewed the risks, benefits and side effects of patient's medications Last Documented On 4 6:15PM ; [facility] Discussed calming techniques such as breathing exercises/meditation and other relaxation techniques Last Documented On 4 4:38PM ; [facility] Counseling for nutrition/rodrigo ght management provided Last Documented On 4 6:15PM ; [facility] Patient education about medi cation --- I educated patient on medication(s) and diagnosis. I reviewed the risks, benefits and side effects of patient's medications Last Documented On 4 11:38PM ; [facility] Discussed calming techniques such as breathing exercises/meditation and other relaxation techniques Last Documented On 4 4:36PM ; [facility] Counseling for nutrition/rodrigo ght management provided Last Documented On 4 11:38PM ; [facility] Patient education about medi cation --- I educated patient on medication(s) and diagnosis Last Documented On 3 7:02PM ; [facility] Discussed calming techniques such as breathing exercises/meditation and other relaxation techniques Last Documented On 3 4:30PM ; [facility] Discussed calming techniques such as breathing exercises/meditation and other relaxation techniques Last Documented On 3 4:32PM ; [facility] Medical Equipment - Implanted Devices Includes: Current and historical Devices No Medical Equipment Recorded Medications Includes: Current and historical Medications Current Medications (continue as prescribed) Paxil 40 MG Oral Tablet 06/23/2022 Provider: BRIONNA STILL MD Diagnosis: Obsessive-compul sive disorder, unspecified TAKE 1 AND 1/2 TABLETS BY [facility] DAILY DIRECTED Last Documented On 06/23/2022 5:34PM By Yajaira Still MD ; [facility] Gemtesa 75 MG Oral Tablet 06/23/2022 Provider: Diagnosis: 1 tab daily Last Documented On 06/23/2022 4:50PM By ELISEO JOHNSTONA ; [facility] Januvia 100 MG Oral Tablet 10/02/2021 Provider: Diagnosis: 1 tab daily Last Documented On 12/23/2021 4:46PM By ELISEO JOHNSTONA ; [facility] FeroSul 325 (65 Fe) MG Oral Tablet 05/28/2021 Provid er: Diagnosis: 1 tab daily Last Documented On 06/16/2021 4:55PM By ELISEO BARCENAS ; [facility] EPINEPHrine 0.3 MG/0.3ML Injection Solution Auto-injec tor 2020 Provider: Diagnosis: use as directed Last Documented On 12/18/2020 4:48PM By ELISEO BARCENAS ; [facility] Pramipexole Dihydrochloride 1 MG Oral Tablet 06/06/2020 Provider: NICOLA Archibald Diagnosis: patient takes 0.75 mg at bedtime Last Documented On 06/19/2020 4:58PM By ELISEO BARCENAS ; [facility] Medical [facility] Rosuvastatin Calcium 10 MG Oral Tablet 06/18/2019 Pr ovider: NICOLA LEE MD Diagnosis: one tablet daily Last Documented On 06/20/2019 4:49PM By JENNIFER CARMICHAEL ; [facility] Modafinil 200MG Oral Tablet 07/24/2018 Provider: LUCY STILL MD Diagnosis: Obstructive slee p apnea (adult) (pediatric) as directed -- 1 tab in am Last Documented On 07/24/2018 7:44AM By Yajaira Still MD ; [facility] Amphetamine-Dextroamphetamin e 30 MG Tablet 01/01/2016 Provider: LUCY STILL MD Diagnosis: Sleep apnea, unspecified as directed Take 1/2 tablet in am and 1/2 tab at 2: 30 pm Last Documented On 01/01/2016 5:30PM By Yajaira Still MD ; [facility] Vitamin D-3 1000 UNIT Tablet 01/01/2015 Provider: Diagnosis: Last Documented On 01/01/2015 2:20PM By Yajaira Still MD ; [facility] Fish Oil 1200 MG OR CAPS 01/17/2013 Provider: Diagnosis: Last Documented On 3 4:44PM By VALENTINO BARCENAS ; [facility] metFORMIN HCl 1000 MG TABS 07/19/2012 Provider: Diagnosis: Last Documented On 3 4:51PM By VALENTINO GOLD ; [facility] Omeprazole 20 MG OR CPDR 03/08/2012 Provider: Diagnosis: Last Documented On 3 2:55PM By VALENTINO GOLD ; [facility] Suspended Medications busPIRone HCl 15 MG Oral Tablet 06/23/2022 Provider: LUCY STILL MD Diagnosis: Generalized anxi ety disorder One tablet twice a day Last Documented On 06/23/2022 5:36PM By Yajaira Still MD ; [facility] Past Medications on file Paxil 40 MG Oral Tablet 06/16/2021 - 06/23/2022 Provider: LUCY STILL MD Diagnosis: Obsessive-compul sive disorder, unspecified TAKE 1 AND 1/2 TABLETS BY [facility] DAILY DIRECTED Last Documented On 06/23/2022 5:34PM By Yajaira Still MD ; [facility] busPIRone HCl 15 MG Oral Tablet 06/16/2021 - 06/23/2022 Provider: LUCY STILL MD Diagnosis: Generalized anxi ety disorder One tablet twice a day Last Documented On 06/23/2022 5:36PM By Yajaira Still MD ; [facility] Myrbetriq 25 MG Oral Tablet Extended Release 24 Hour 06/06/2020 - 06/23/2022 Provider: NICOLA ESPINOZA MD Diagnosis: 1 tab daily Last Documented On 06/23/2022 4:37PM By ELISEO BARCENAS ; [facility] Paxil 40 MG Oral Tablet 03/19/2020 - 06/16/2021 Provider: LUCY STILL MD Diagnosis: Obsessive-compul sive disorder, unspecified TAKE 1 AND 1/2 TABLETS BY [facility] DAILY DIRECTED Last Documented On 06/16/2021 5:25PM By Yajaira Still MD ; [facility] Paxil 40 MG Oral Tablet 10/08/2019 - 03/19/2020 Provider: LUCY STILL MD Diagnosis: Obsessive-compul sive disorder, unspecified TAKE 1 AND 1/2 TABLETS BY [facility] DAILY DIRECTED Last Documented On 03/19/2020 9:52AM By Yajaira Still MD ; [facility] busPIRone HCl 15 MG Oral Tablet 07/11/2019 - 06/16/2021 Provider: LUCY STILL MD Diagnosis: Generalized anxi ety disorder One tablet twice a day Last Documented On 06/16/2021 5:27PM By Yajaira Still MD ; [facility] Paxil 40 MG Oral Tablet 04/18/2019 - 10/08/2019 Provider: LUCY STILL MD Diagnosis: Obsessive-compul sive disorder, unspecified TAKE 1 AND 1/2 TABLETS BY [facility] DAILY DIRECTED Last Documented On 10/08/2019 6:56PM By Yajaira Still MD ; [facility] busPIRone HCl 15 MG Oral Tablet 11/03/2018 - 06/20/2019 Provider: LUCY STILL MD Diagnosis: Generalized anxi ety disorder One tablet twice a day Last Documented On 07/11/2019 2:13PM By Yajaira Still MD ; [facility] Paxil 40 MG Oral Tablet 11/01/2018 - 04/18/2019 Provider: LUCY STILL MD Diagnosis: Obsessive-compul sive disorder, unspecified TAKE 1 AND 1/2 TABLETS BY [facility] DAILY DIRECTED Last Documented On 04/18/2019 9:34AM By Yajaira Still MD ; [facility] Paxil 40MG Oral Tablet 07/24/2018 - 11/01/2018 Provider: LUCY STILL MD Diagnosis: Obsessive-compul sive disorder, unspecified as directed --1 and 1/2 tab daily Last Documented On 9 10:14AM By Yajaira Still MD ; [facility] busPIRone HCl 15MG Oral Tablet 06/29/2018 - 11/03/2018 Provider: LUCY STILL MD Diagnosis: Generalized anxi ety disorder One tablet twice a day Last Documented On 9 10:39AM By Yajaira Still MD ; [facility] busPIRone HCl 7.5 MG OR TABS 03/17/2018 - 04/16/2018 P rovider: Diagnosis: Major depressive disorder, recurrent, moderate 2 tablets twice a day Last Documented On 03/17/2018 9:59AM By ELISEO BARCENAS ; [facility] BusPIRone HCl 7.5MG Oral Tablet 03/17/2018 - 12/20/2018 Provider: LUCY STILL MD Diagnosis: Major depressive disorder, recurrent, moderate as directed 2 tablets twice a day Last Documented On 12/20/2018 5:20PM By Yajaira Still MD ; [facility] Paxil 40MG Oral Tablet 12/30/2017 - 06/29/2018 Provider: LUCY STILL MD Diagnosis: Obsessive-compul sive disorder, unspecified as directed --1 and 1/2 tab daily Last Documented On 07/24/2018 7:44AM By Yajaira Still MD ; [facility] Modafinil 200MG Oral Tablet 12/30/2017 - 06/29/2018 Provider: LUCY STILL MD Diagnosis: Obstructive slee p apnea (adult) (pediatric) as directed -- 1 tab in am Last Documented On 07/24/2018 7:44AM By Yaajira Still MD ; [facility] Paxil 40MG Oral Tablet 12/29/2017 - 12/29/2017 Provider: LUCY TOMAS MD Diagnosis: Major depressive disorder, recurrent, moderate as directed --1 and 1/2 tab daily Last Documented On 12/30/2017 2:22PM By Yajaira Still MD ; [facility] BusPIRone HCl 15MG Oral Tablet 12/29/2017 - 06/29/2018 Provider: LUCY STILL MD Diagnosis: Generalized anxi ety disorder One tablet twice a day Last Documented On 06/29/2018 5:22PM By Yajaira Still MD ; [facility] Modafinil 200MG Oral Tablet 07/04/2017 - 12/29/2017 Provider: LUCY STILL MD Diagnosis: Obstructive slee p apnea (adult) (pediatric) as directed -- 1 tab in am - - given by Dr. Vela Last Documented On 12/30/2017 2:22PM By Yajaira Still MD ; [facility] PARoxetine HCl 40MG Oral Tablet 07/04/2017 - 11/01/2018 Provider: LUCY STILL MD Diagnosis: Major depressive disorder, recurrent, moderate One tablet daily Last Documented On 01/19/2019 5:20PM By JENNIFER CARMICHAEL ; [facility] BusPIRone HCl 15MG Oral Tablet 06/29/2017 - 12/29/2017 Provider: LUCY STILL MD Diagnosis: Generalized anxi ety disorder One tablet twice a day Last Documented On 12/29/2017 5:06PM By Yajaira Still MD ; [facility] PARoxetine HCl 40MG Oral Tablet 04/26/2017 - 06/29/2017 Provider: LUCY STILL MD Diagnosis: Major depressive disorder, recurrent, moderate One tablet daily Last Documented On 07/04/2017 7:07AM By Yajaira Still MD ; [facility] Paxil CR 37.5MG Oral Tablet Extended Release 24 Hour 01/01/2017 - 06/29/2017 Provider: LUCY STILL MD Diagnosis: Major depressive disorder, recurrent, unspecified Take 1 tablet by mouth twice a day Last Documented On 06/29/2017 4:59PM By Yajaira Still MD ; [facility] Modafinil 200MG Oral Tablet 01/01/2017 - 06/29/2017 Provider: LUCY STILL MD Diagnosis: Obstructive slee p apnea (adult) (pediatric) as directed -- 1 tab in am - - given by Dr. Vela Last Documented On 07/04/2017 7:07AM By Yajaira Still MD ; [facility] Oxybutynin Chloride 5MG Oral Tablet 01/01/2017 - 06/29 Provider: Diagnosis: Last Documented On 06/29/2017 4:59PM By Yajaira Still MD ; [facility] Tamsulosin HCl 0.4MG Oral Capsule 01/01/2017 - 018 Provider: Diagnosis: Last Documented On 06/29/2017 4:58PM By Yajaira Still MD ; [facility] BusPIRone HCl 15MG Oral Tablet 12/30/2016 - 06/29/2017 Provider: LUCY STILL MD Diagnosis: Generalized anxi ety disorder One tablet twice a day Last Documented On 06/29/2017 5:01PM By Yajaira Still MD ; [facility] Paxil CR 37.5MG Oral Tablet Extended Release 24 Hour 11/08/2016 - 12/30/2016 Provider: LUCY STILL MD Diagnosis: Major depressive disorder, recurrent, unspecified Take 1 tablet by mouth twice a day Last Documented On 01/01/2017 9:31AM By Yajaira Still MD ; [facility] Modafinil 200MG Oral Tablet 09/08/2016 - 12/30/2016 Provider: LUCY STILL MD Diagnosis: Obstructive slee p apnea (adult) (pediatric) as directed -- 1 tab at 2:30 pm -- given by Dr. Vela Last Documented On 01/01/2017 9:31AM By Yajaira Still MD ; [facility] Pramipexole Dihydrochloride 0.5MG Oral Tablet 09/08/2016 - 06/16/2021 Provider: LUCY STILL MD Diagnosis: Restless legs syndrome as directed 1 and 1/2 tabs a t bedtime --- given by Dr. Vela Last Documented On 06/16/2021 5:28PM By Yajaira Still MD ; [facility] BusPIRone HCl 15MG Oral Tablet 06/29/2016 - 12/30/2016 Provider: LUCY STILL MD Diagnosis: Generalized anxi ety disorder One tablet twice a day Last Documented On 12/30/2016 5:18PM By Yajaira Still MD ; [facility] Paxil CR 37.5MG Oral Tablet Extended Release 24 Hour 06/29/2016 - 11/08/2016 Provider: LUCY STILL MD Diagnosis: Major depressive disorder, recurrent, unspecified *BID - One tablet twice a day Last Documented On 11/08/2016 4:18PM By Yajaira Still MD ; [facility] Modafinil 200 MG Tablet 01/01/2016 - 06/29/2016 Provider: LUCY STILL MD Diagnosis: Obstructive slee p apnea (adult) (pediatric) as directed -- 1 tab at 2:30 pm -- given by Dr. Vela Last Documented On 7 12:20PM By Yajaira Still MD ; [facility] BusPIRone HCl 15 MG Tablet 01/01/2016 - 06/29/2016 Provider: LUCY STILL MD Diagnosis: Generalized anxi ety disorder One tablet twice a day Last Documented On 06/29/2016 6:22PM By Yajaira Still MD ; [facility] Paxil CR 37.5 MG Tablet, extended-release 24 hour 01/01/2016 - 06/29/2016 Provider: LUCY STILL MD Diagnosis: Major depressive disorder, recurrent, unspecified *BID - One tablet twice a day Last Documented On 06/29/2016 6:24PM By Yajaira Still MD ; [facility] Benadryl Allergy 25 MG Tablet 01/01/2016 - 06/29/2016 Provider: NICOLA LEE MD Diagnosis: Take as directed. As needed Last Documented On 7 4:52PM By AYDE SIMPSON LPN ; [facility] Paxil CR 37.5 MG Tablet Extended Release 24 Hour 12/12/2015 - 01/01/2016 Provider: LUCY STILL MD Diagnosis: Major depressive disorder, recurrent, unspecified *BID - One tablet twice a day Last Documented On 01/01/2016 5:25PM By Yajaira Still MD ; [facility] Modafinil 200 MG Tablet 12/03/2015 - 01/01/2016 Provid er: Diagnosis: 1 daily Last Documented On 01/01/2016 5:30PM By Yajaira Still MD ; [facility] BusPIRone HCl 15 MG Tablet 10/29/2015 - 01/01/2016 Provider: LUCY STILL MD Diagnosis: Generalized anxi ety disorder One tablet twice a day Last Documented On 01/01/2016 5:30PM By Yajaira Still MD ; [facility] Nuvigil 200 MG Tablet 07/01/2015 - 01/01/2016 Provider: LUCY STILL MD Diagnosis: Obstructive slee p apnea (adult) (pediatric) 1 tablet every morning --giv en discount voucher on 07/01/15 but was prescribed by Dr. Lee (PCP) Last Documented On 01/01/2016 4:58PM By Yajaira Still MD ; [facility] Paxil CR 37.5 MG Tablet Extended Release 24 Hour 07/01/2015 - 12/12/2015 Provider: LUCY STILL MD Diagnosis: Major depressive disorder, recurrent, unspecified *BID - One tablet twice a day Last Documented On 12/12/2015 3:07PM By Yajaira Still MD ; [facility] BusPIRone HCl 15 MG Tablet 07/01/2015 - 10/29/2015 Provider: LUCY STILL MD Diagnosis: Generalized anxi ety disorder One tablet twice a day Last Documented On 6 10:32AM By Yajaira Still MD ; [facility] Nuvigil 200 MG Tablet 06/05/2015 - 01/01/2016 Provider : Diagnosis: 1 tablet daily Last Documented On 6 4:44PM By AYDE SIMPSON LPN ; [facility] Modafinil 200 MG Tablet 03/31/2015 - 07/01/2015 Provider: LUCY STILL MD Diagnosis: Obstructive slee p apnea (adult) (pediatric) as directed --1 tab in am and 1 tab at noon Last Documented On 6 4:41PM By AYDE SIMPSON LPN ; [facility] Nuvigil 250 MG Tablet 03/31/2015 - 04/14/2015 Provider: LUCY TOMAS MD Diagnosis: Obstructive slee p apnea (adult) (pediatric) 1 tablet every morning --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 03/31/15 Last Documented On 03/31/2015 1:00PM By Yajaira Still MD ; [facility] Paxil CR 37.5 MG Tablet, extended-release 24 hour 03/20/2015 - 07/01/2015 Provider: LUCY STILL MD Diagnosis: Major depressive disorder, recurrent, unspecified *BID - One tablet twice a day Last Documented On 07/01/2015 5:18PM By Yajaira Still MD ; [facility] BusPIRone HCl 15 MG Tablet 03/20/2015 - 07/01/2015 Provider: LUCY STILL MD Diagnosis: Generalized anxi ety disorder One tablet twice a day Last Documented On 07/01/2015 5:18PM By Yajaira Still MD ; [facility] Modafinil 200 MG Tablet 01/01/2015 - 07/01/2015 Provider: LUCY STILL MD Diagnosis: Obstructive slee p apnea (adult) (pediatric) as directed 2 in the morning -- refilled by Dr. Vela Last Documented On 6 4:42PM By AYDE SIMPSON LPN ; [facility] Paxil CR 37.5 MG Tablet Extended Release 24 Hour 01/01/2015 - 03/20/2015 Provider: LUCY STILL MD Diagnosis: Major depressive disorder, recurrent, unspecified *BID - One tablet twice a day Last Documented On 6 10:45AM By Yajaira Still MD ; [facility] BusPIRone HCl 15 MG Tablet 01/01/2015 - 03/20/2015 Provider: LUCY STILL MD Diagnosis: Generalized anxi ety disorder One tablet twice a day Last Documented On 6 10:45AM By Yajaira Still MD ; [facility] HM Vitamin B12 500 MCG Tablet 01/01/2015 - 07/01/2015 Provider: Diagnosis: Take 1 tablet by mouth daily Last Documented On 6 4:42PM By AYDE SIMPSON LPN ; [facility] HM Vitamin B12 1000 MCG Tablet Extended Release 01/01/2015 - 01/01/2016 Provider: Diagnosis: Last Documented On 01/01/2016 5:17PM By Yajaira Still MD ; [facility] Dialyvite Vitamin D 5000 5000 UNIT Capsule 01/01/2015 - 01/01/2015 Provider: Diagnosis: Take 1 capsule by mouth weekly Last Documented On 01/01/2015 2:21PM By Yajaira Still MD ; [facility] Amphetamine-Dextroamphetamin e 30 MG Tablet 01/01/2015 - 01/01/2016 Provider: GUSTAVO VELA MD Diagnosis: Sleep apnea, unspecified Take 1/2 tablet by mouth twice a day Last Documented On 01/01/2016 5:30PM By Yajaira Still MD ; [facility] Pramipexole Dihydrochloride 0.5 MG Tablet 01/01/2015 - 06/29/2016 Provider: LUCY STILL MD Diagnosis: Restless legs syndrome as directed 1 and 1/2 tabs a t bedtime --- given by Dr. Vela Last Documented On 7 12:20PM By Yajaira Still MD ; [facility] Paxil CR 37.5 MG Tablet Extended Release 24 Hour 12/13/2014 - 01/01/2015 Provider: LUCY STILL MD Diagnosis: Major depressive disorder, recurrent, unspecified *BID - One tablet twice a day Last Documented On 01/01/2015 2:42PM By Yajaira Still MD ; [facility] Modafinil 200 MG Tablet 07/29/2014 - 01/01/2015 Provider: LUCY STILL MD Diagnosis: OBSTRUCTIVE SLEE P APNEA as directed 2 in the morning -- refilled by Dr. Vela Last Documented On 01/01/2015 2:42PM By Yajaira Still MD ; [facility] BusPIRone HCl 15 MG Tablet 07/18/2014 - 01/01/2015 Provider: LUCY STILL MD Diagnosis: GENERALIZED ANXI ETY DIS One tablet twice a day Last Documented On 01/01/2015 2:42PM By Yajaira Still MD ; [facility] Paxil CR 37.5 MG Tablet, extended-release 24 hour 07/18/2014 - 12/13/2014 Provider: LUCY STILL MD Diagnosis: MAJOR DEPRESSION DISORDER/RECURRENT *BID - One tablet twice a day Last Documented On 12/13/2014 9:15AM By Yajaira Still MD ; [facility] busPIRone HCl 15 MG OR TABS 01/18/2014 - 07/18/2014 Provider: LUCY STILL MD Diagnosis: GENERALIZED ANXI ETY DIS Last Documented On 07/18/2014 5:08PM By Yajaira Still MD ; [facility] Paxil CR 37.5 MG OR TB24 01/18/2014 - 07/18/2014 Provider: LUCY TOMAS MD Diagnosis: MAJOR DEPRESSION DISORDER/RECURRENT refilled last 12/27/13 for 3 refills Last Documented On 07/18/2014 5:08PM By Yajaira Still MD ; [facility] Modafinil 200 MG OR TABS 01/18/2014 - 07/18/2014 Provider: LUCY STILL MD Diagnosis: OBSTRUCTIVE SLEE P APNEA 2 in the morning -- refilled by Dr. Vela Last Documented On 07/29/2014 6:34PM By Yajaira Still MD ; [facility] Zantac 75 75 MG OR TABS 07/17/2013 - 07/01/2015 Provid er: Diagnosis: Last Documented On 6 4:40PM By AYDE SIMPSON LPN ; [facility] Pramipexole Dihydrochloride 0.5 MG OR TABS 07/17/2013 - 01/01/2015 Provider: LUCY STILL MD Diagnosis: Restless Legs Syndrome 1 and 1/2 tabs at bedtime --- given by Dr. Vela Last Documented On 01/01/2015 2:42PM By Yajaira Still MD ; [facility] Paxil CR 37.5 MG OR TB24 07/17/2013 - 01/18/2014 Provider: LUCY TOMAS MD Diagnosis: MAJOR DEPRESSION DISORDER/RECURRENT Last Documented On 01/18/2014 5:37PM By Yajaira Still MD ; [facility] Modafinil 200 MG OR TABS 07/17/2013 - 01/18/2014 Provider: LUCY STILL MD Diagnosis: OBSTRUCTIVE SLEE P APNEA 2 in the morning Last Documented On 01/18/2014 5:37PM By Yajaira Still MD ; [facility] busPIRone HCl 15 MG OR TABS 07/17/2013 - 01/18/2014 Provider: LUCY STILL MD Diagnosis: GENERALIZED ANXI ETY DIS Last Documented On 01/18/2014 5:37PM By Yajaira Still MD ; [facility] ZyrTEC Allergy 10 MG OR TABS 07/17/2013 - 01/01/2016 P rovider: Diagnosis: Last Documented On 01/01/2016 5:16PM By Yajaira Still MD ; [facility] Paxil CR 37.5 MG OR TB24 01/17/2013 - 07/17/2013 Provider: LUCY TOMAS MD Diagnosis: MAJOR DEPRESSION DISORDER/RECURRENT Last Documented On 07/17/2013 5:23PM By Yajiara Still MD ; [facility] Modafinil 200 MG OR TABS 01/17/2013 - 07/17/2013 Provider: LUCY STILL MD Diagnosis: OBSTRUCTIVE SLEE P APNEA 2 in the morning Last Documented On 07/17/2013 5:23PM By Yajaira Still MD ; [facility] busPIRone HCl 15 MG OR TABS 01/17/2013 - 07/17/2013 Provider: LUCY STILL MD Diagnosis: GENERALIZED ANXI ETY DIS Last Documented On 07/17/2013 5:23PM By Yajaira Still MD ; [facility] Modafinil 200 MG OR TABS 07/19/2012 - 01/17/2013 Provider: LUCY STILL MD Diagnosis: OBSTRUCTIVE SLEE P APNEA 2 in the morning Last Documented On 01/17/2013 5:29PM By Yajaira Still MD ; [facility]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
--- OUTSIDE RECORDS SUMMARY | 2024-05-10 12:17 | XMS_ITS ---
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 Last Documented On 3 5:45PM ; [facility] Major Depression, Recurrent 07/19/2012 Active Last Documented On 3 5:45PM ; [facility] Restless Legs Syndrome 07/19/2012 Ac tive Last Documented On 3 5:45PM ; [facility] Obsessive Compulsive Disorder 03/08/2012 Active Last Documented On 3 5:50PM ; [facility] Generalized Anxiety Disorder 03/08/2012 Active Last Documented On 3 5:42PM ; [facility] Gerd 03/08/2012 Active Last Documented On 3 5:42PM ; [facility] Hyperlipidemia 03/08/2012 Active Last Documented On 3 5:42PM ; [facility] Obsessive Compulsive Disorder 03/08/2012 Inactive Last Documented On 3 5:42PM ; [facility] Nephrolithiasis 03/08/2012 Active Last Documented On 3 5:42PM ; [facility] Plan of Treatment Future Appointments Date Time Location Provi conrad TELEHEALTH ADULT PSYCH ESTABLISHED 06/20/2024 4:40PM [facility] STILL MD Last Documented On 4 5:56PM ; [facility] Education and Decision Aids were provided during visit for: Discussed good sleep hygiene habits Last Documented On 3 6:40PM ; [facility] Assessments Includes: Assessments for all patient encounters Findings Encounter Date Generalized anxiety disorder TELEHEALTH ADULT PSYCH ESTABLISHED with LUCY STILL MD 06/21/2023 Last Documented On 4 8:45PM ; [facility] Major depression, recurrent TELEHEALTH A DULT PSYCH ESTABLISHED with LUCY STILL MD 06/21/2023 Last Documented On 4 8:45PM ; [facility] Narcolepsy TELEHEALTH ADULT PSYCH ESTABLISH ED with LUCY STILL MD 06/21/2023 Last Documented On 4 8:45PM ; [facility] Obsessive compulsive disorder TELEHEALTH ADULT PSYCH ESTABLISHED with LUCY STILL MD 06/21/2023 Last Documented On 4 8:45PM ; [facility] Obstructive sleep apnea TELEHEALTH ADULT PSYCH ESTABLISHED with LUCY STILL MD 06/21/2023 Last Documented On 4 8:45PM ; [facility] Restless legs syndrome TELEHEALTH ADULT PSYCH ESTABLISHED with LUCY STILL MD 06/21/2023 Last Documented On 4 8:45PM ; [facility] Generalized anxiety disorder TELEHEALTH ADULT PSYCH ESTABLISHED with LUCY STILL MD 12/23/2022 Last Documented On 3 12:30PM ; [facility] Major depression, recurrent TELEHEALTH A DULT PSYCH ESTABLISHED with LUCY STILL MD 12/23/2022 Last Documented On 3 12:30PM ; [facility] Narcolepsy TELEHEALTH ADULT PSYCH ESTABLISH ED with LUCY STILL MD 12/23/2022 Last Documented On 3 12:30PM ; [facility] Obsessive compulsive disorder TELEHEALTH ADULT PSYCH ESTABLISHED with LUCY STILL MD 12/23/2022 Last Documented On 3 12:30PM ; [facility] Obstructive sleep apnea TELEHEALTH ADULT PSYCH ESTABLISHED with LUCY STILL MD 12/23/2022 Last Documented On 3 12:30PM ; [facility] Restless legs syndrome TELEHEALTH ADULT PSYCH ESTABLISHED with LUCY STILL MD 12/23/2022 Last Documented On 3 12:30PM ; [facility] Instructions Includes: Instructions for all patient encounters Education and Decision Aids were provided during visit for: Discussed good sleep hygiene habits Last Documented On 3 6:40PM ; [facility] Medical Equipment - Implanted Devices Includes: Current and historical Devices No Medical Equipment Recorded Medications Includes: Current and historical Medications Current Medications (continue as prescribed) Paxil 40 MG Oral Tablet 06/21/2023 Provider: BRIONNA STILL MD Diagnosis: Obsessive-compul sive disorder, unspecified TAKE 1 AND 1/2 TABLETS BY EFREM KING DAILY DIRECTED Last Documented On 06/21/2023 5:42PM By Yajaira Still MD ; [facility] busPIRone HCl 15 MG Oral Tablet 06/20/2023 Provider: LUCY STILL MD Diagnosis: Generalized anxi ety disorder One tablet twice a day Last Documented On 06/20/2023 10:49AM By Yajaira Still MD ; [facility] Pramipexole Dihydrochloride 1 MG Oral Tablet 04/20/2023 Provider: NICOLA Archibald Diagnosis: 1 and 1/2 tab in the evening Last Documented On 06/21/2023 5:48PM By Yajaira Still MD ; [facility] Fish Oil 1200 MG Oral Capsule 12/23/2022 Provider: Diagnosis: 3 caps daily Last Documented On 12/23/2022 4:48PM By ELISEO BARCENAS ; [facility] oxyBUTYnin Chloride ER 15 MG Oral Tablet Extended Release 24 Hour 11/15/2022 Provider: RAFITA RUGGIERO MD Diagnosis: 1 tab daily Last Documented On 12/23/2022 4:48PM By ELISEO BARCENAS ; [facility] Januvia 100 MG OR TABS 10/02/2021 Provider: Diagnosis: 1 tab daily Last Documented On 07/03/2022 5:27PM By ELISEO BARCENAS ; [facility] FeroSul 325 (65 Fe) MG OR TABS 05/28/2021 Provider: Diagnosis: 1 tab daily Last Documented On 07/03/2022 5:27PM By ELISEO BARCENAS ; [facility] EPINEPHrine 0.3 MG/0.3ML IJ SOAJ 2020 Provider : Diagnosis: use as directed Last Documented On 07/03/2022 5:27PM By ELISEO BARCENAS ; [facility] Rosuvastatin Calcium 10 MG OR TABS 06/18/2019 Provid er: Diagnosis: one tablet daily Last Documented On 07/03/2022 5:27PM By JENNIFER CARMICHAEL ; [facility] Modafinil 200 MG OR TABS 07/24/2018 Provider: MET SHELDON STILL MD Diagnosis: Obstructive slee p apnea (adult) (pediatric) as directed -- 1 tab in am Last Documented On 07/03/2022 5:27PM By Yajaira Still MD ; [facility] Amphetamine-Dextroamphetamin e 30 MG OR TABS 01/01/2016 Provider: LUCY STILL MD Diagnosis: Sleep apnea, unspecified as directed Take 1/2 tablet in am and 1/2 tab at 2: 30 pm Last Documented On 07/03/2022 5:27PM By Yajaira Still MD ; [facility] PA Vitamin D-3 25 MCG (1000 UT) OR TABS 01/01/2015 P rovider: Diagnosis: Last Documented On 07/03/2022 5:27PM By Yajaira Still MD ; [facility] metFORMIN HCl 1000 MG TABS 07/19/2012 Provider: Diagnosis: Last Documented On 07/03/2022 5:27PM By VALENTINO GOLD ; [facility] Omeprazole 20 MG OR CPDR 03/08/2012 Provider: Diagnosis: Last Documented On 07/03/2022 5:27PM By VALENTINO GOLD ; [facility] Past Medications on file Paxil 40 MG OR TABS 06/23/2022 - 06/21/2023 Provider: LUCY STILL MD Diagnosis: Obsessive-compul sive disorder, unspecified TAKE 1 AND 1/2 TABLETS BY [facility] DAILY DIRECTED Last Documented On 06/21/2023 5:42PM By Yajaira Still MD ; [facility] busPIRone HCl 15 MG OR TABS 06/23/2022 - 06/20/2023 Provider: LUCY STILL MD Diagnosis: Generalized anxi ety disorder One tablet twice a day Last Documented On 06/20/2023 10:48AM By Yajaira Still MD ; [facility] Gemtesa 75 MG OR TABS 06/23/2022 - 12/23/2022 Provider : Diagnosis: 1 tab daily Last Documented On 12/23/2022 4:48PM By ELISEO BARCENAS ; [facility] busPIRone HCl 15 MG OR TABS 06/16/2021 - 06/23/2022 Provider: LUCY STILL MD Diagnosis: Generalized anxi ety disorder One tablet twice a day Last Documented On 07/03/2022 5:27PM By Yajaira Still MD ; [facility] Paxil 40 MG OR TABS 06/16/2021 - 06/23/2022 Provider: LUCY STILL MD Diagnosis: Obsessive-compul sive disorder, unspecified TAKE 1 AND 1/2 TABLETS BY [facility] DAILY DIRECTED Last Documented On 07/03/2022 5:27PM By Yajaira Still MD ; [facility] Myrbetriq 25 MG OR TB24 06/06/2020 - 06/23/2022 Provid er: Diagnosis: 1 tab daily Last Documented On 07/03/2022 5:27PM By ELISEO BARCENAS ; [facility] Pramipexole Dihydrochloride 1 MG OR TABS 06/06/2020 - 06/21/2023 Provider: Diagnosis: patient takes 0.75 mg at bedtime Last Documented On 06/21/2023 5:48PM By Yajaira Still MD ; [facility] Paxil 40 MG OR TABS 03/19/2020 - 06/16/2021 Provider: LUCY STILL MD Diagnosis: Obsessive-compul sive disorder, unspecified TAKE 1 AND 1/2 TABLETS BY [facility] DAILY DIRECTED Last Documented On 07/03/2022 5:27PM By Yajaira Still MD ; [facility] Paxil 40 MG OR TABS 10/08/2019 - 03/19/2020 Provider: LUCY STILL MD Diagnosis: Obsessive-compul sive disorder, unspecified TAKE 1 AND 1/2 TABLETS BY MO [facility] DAILY DIRECTED Last Documented On 07/03/2022 5:27PM By Yajaira Still MD ; [facility] busPIRone HCl 15 MG OR TABS 07/11/2019 - 06/16/2021 Provider: LUCY STILL MD Diagnosis: Generalized anxi ety disorder One tablet twice a day Last Documented On 07/03/2022 5:27PM By Yajaira Still MD ; [facility] Paxil 40 MG OR TABS 04/18/2019 - 10/08/2019 Provider: LUCY STILL MD Diagnosis: Obsessive-compul sive disorder, unspecified TAKE 1 AND 1/2 TABLETS BY [facility] DAILY DIRECTED Last Documented On 07/03/2022 5:27PM By Yajaira Still MD ; [facility] busPIRone HCl 15 MG OR TABS 11/03/2018 - 06/20/2019 Provider: LUCY STILL MD Diagnosis: Generalized anxi ety disorder One tablet twice a day Last Documented On 07/03/2022 5:27PM By Yajaira Still MD ; [facility] Paxil 40 MG OR TABS 11/01/2018 - 04/18/2019 Provider: LUCY STILL MD Diagnosis: Obsessive-compul sive disorder, unspecified TAKE 1 AND 1/2 TABLETS BY MO [facility] DAILY DIRECTED Last Documented On 07/03/2022 5:27PM By Yajaira Still MD ; [facility] Paxil 40 MG OR TABS 07/24/2018 - 11/01/2018 Provider: LUCY STILL MD Diagnosis: Obsessive-compul sive disorder, unspecified as directed --1 and 1/2 tab daily Last Documented On 07/03/2022 5:27PM By Yajaria Still MD ; [facility] busPIRone HCl 15 MG OR TABS 06/29/2018 - 11/03/2018 Provider: LUCY STILL MD Diagnosis: Generalized anxi ety disorder One tablet twice a day Last Documented On 07/03/2022 5:27PM By Yajaira Still MD ; [facility] busPIRone HCl 7.5 MG OR TABS 03/17/2018 - 12/20/2018 Provider: LUCY STILL MD Diagnosis: Major depressive disorder, recurrent, moderate as directed 2 tablets twice a day Last Documented On 07/03/2022 5:27PM By Yajaira Still MD ; [facility] busPIRone HCl 7.5 MG OR TABS 03/17/2018 - 04/16/2018 P leathader: Diagnosis: Major depressive disorder, recurrent, moderate 2 tablets twice a day Last Documented On 07/03/2022 5:27PM By ELISEO BARCENAS ; [facility] Modafinil 200 MG OR TABS 12/30/2017 - 06/29/2018 Provider: LUCY STILL MD Diagnosis: Obstructive slee p apnea (adult) (pediatric) as directed -- 1 tab in am Last Documented On 07/03/2022 5:27PM By Yajaira Still MD ; [facility] Paxil 40 MG OR TABS 12/30/2017 - 06/29/2018 Provider: LUCY STILL MD Diagnosis: Obsessive-compul sive disorder, unspecified as directed --1 and 1/2 tab daily Last Documented On 07/03/2022 5:27PM By Yajaira Still MD ; [facility] Paxil 40 MG OR TABS 12/29/2017 - 12/29/2017 Provider: LUCY STILL MD Diagnosis: Major depressive disorder, recurrent, moderate as directed --1 and 1/2 tab daily Last Documented On 07/03/2022 5:27PM By Yajaira Still MD ; [facility] busPIRone HCl 15 MG OR TABS 12/29/2017 - 06/29/2018 Provider: LUCY STILL MD Diagnosis: Generalized anxi ety disorder One tablet twice a day Last Documented On 07/03/2022 5:27PM By Yajaira Still MD ; [facility] PARoxetine HCl 40 MG OR TABS 07/04/2017 - 11/01/2018 Provider: LUCY STILL MD Diagnosis: Major depressive disorder, recurrent, moderate One tablet daily Last Documented On 07/03/2022 5:27PM By Yajaira Still MD ; [facility] Modafinil 200 MG OR TABS 07/04/2017 - 12/29/2017 Provider: LUCY STILL MD Diagnosis: Obstructive slee p apnea (adult) (pediatric) as directed -- 1 tab in am - - given by Dr. Conroy Last Documented On 07/03/2022 5:27PM By Yajaira Still MD ; [facility] busPIRone HCl 15 MG OR TABS 06/29/2017 - 12/29/2017 Provider: LUCY STILL MD Diagnosis: Generalized anxi ety disorder One tablet twice a day Last Documented On 07/03/2022 5:27PM By Yajaira Still MD ; [facility] PARoxetine HCl 40 MG OR TABS 04/26/2017 - 06/29/2017 Provider: LUCY STILL MD Diagnosis: Major depressive disorder, recurrent, moderate One tablet daily Last Documented On 07/03/2022 5:27PM By Yajaira Still MD ; [facility] Modafinil 200 MG OR TABS 01/01/2017 - 06/29/2017 Provider: LUCY STILL MD Diagnosis: Obstructive slee p apnea (adult) (pediatric) as directed -- 1 tab in am - - given by Dr. Conroy Last Documented On 07/03/2022 5:27PM By Yajaira Still MD ; [facility] Tamsulosin HCl 0.4 MG OR CAPS 01/01/2017 - 06/29/2017 Provider: Diagnosis: Last Documented On 07/03/2022 5:27PM By Yajaira Still MD ; [facility] oxyBUTYnin Chloride 5 MG OR TABS 01/01/2017 - 06/30/19 Provider: Diagnosis: Last Documented On 07/03/2022 5:27PM By Yajaira Still MD ; [facility] Paxil CR 37.5 MG OR TB24 01/01/2017 - 06/29/2017 Provider: LUCY TOMAS MD Diagnosis: Major depressive disorder, recurrent, unspecified Take 1 tablet by mouth twice a day Last Documented On 07/03/2022 5:27PM By Yajaira Still MD ; [facility] busPIRone HCl 15 MG OR TABS 12/30/2016 - 06/29/2017 Provider: LUCY STILL MD Diagnosis: Generalized anxi ety disorder One tablet twice a day Last Documented On 07/03/2022 5:27PM By Yajaira Still MD ; [facility] Paxil CR 37.5 MG OR TB24 11/08/2016 - 12/30/2016 Provider: LUCY TOMAS MD Diagnosis: Major depressive disorder, recurrent, unspecified Take 1 tablet by mouth twice a day Last Documented On 07/03/2022 5:27PM By Yajaira Still MD ; [facility] Pramipexole Dihydrochloride 0.5 MG OR TABS 09/08/2016 - 06/16/2021 Provider: LUCY STILL MD Diagnosis: Restless legs syndrome as directed 1 and 1/2 tabs a t bedtime --- given by Dr. Conroy Last Documented On 07/03/2022 5:27PM By Yajaira Still MD ; [facility] Modafinil 200 MG OR TABS 09/08/2016 - 12/30/2016 Provider: LUCY STILL MD Diagnosis: Obstructive slee p apnea (adult) (pediatric) as directed -- 1 tab at 2:30 pm -- given by Dr. Conroy Last Documented On 07/03/2022 5:27PM By Yajaira Still MD ; [facility] Paxil CR 37.5 MG OR TB24 06/29/2016 - 11/08/2016 Provider: LUCY TOMAS MD Diagnosis: Major depressive disorder, recurrent, unspecified *BID - One tablet twice a day Last Documented On 07/03/2022 5:27PM By Yajaira Still MD ; [facility] busPIRone HCl 15 MG OR TABS 06/29/2016 - 12/30/2016 Provider: LUCY STILL MD Diagnosis: Generalized anxi ety disorder One tablet twice a day Last Documented On 07/03/2022 5:27PM By Yajaira Still MD ; [facility] Benadryl Allergy 25 MG OR TABS 01/01/2016 - 06/29/2016 Provider: Diagnosis: Take as directed. As needed Last Documented On 07/03/2022 5:27PM By AYDE SIMPSON LPN ; [facility] Paxil CR 37.5 MG OR TB24 01/01/2016 - 06/29/2016 Provider: LUCY TOMAS MD Diagnosis: Major depressive disorder, recurrent, unspecified *BID - One tablet twice a day Last Documented On 07/03/2022 5:27PM By Yajaira Still MD ; [facility] Modafinil 200 MG OR TABS 01/01/2016 - 06/29/2016 Provider: LUCY STILL MD Diagnosis: Obstructive slee p apnea (adult) (pediatric) as directed -- 1 tab at 2:30 pm -- given by Dr. Conroy Last Documented On 07/03/2022 5:27PM By Yajaira Still MD ; [facility] busPIRone HCl 15 MG OR TABS 01/01/2016 - 06/29/2016 Provider: LUCY STILL MD Diagnosis: Generalized anxi ety disorder One tablet twice a day Last Documented On 07/03/2022 5:27PM By Yajaira Still MD ; [facility] Paxil CR 37.5 MG OR TB24 12/12/2015 - 01/01/2016 Provider: LUCY TOMAS MD Diagnosis: Major depressive disorder, recurrent, unspecified *BID - One tablet twice a day Last Documented On 07/03/2022 5:27PM By Yajaira Still MD ; [facility] Modafinil 200 MG OR TABS 12/03/2015 - 01/01/2016 Provi conrad: Diagnosis: 1 daily Last Documented On 07/03/2022 5:27PM By AYDE SIMPSON LPN ; [facility] busPIRone HCl 15 MG OR TABS 10/29/2015 - 01/01/2016 Provider: LUCY STILL MD Diagnosis: Generalized anxi ety disorder One tablet twice a day Last Documented On 07/03/2022 5:27PM By Yajaira Still MD ; [facility] Nuvigil 200 MG OR TABS 07/01/2015 - 01/01/2016 Provider: LUCY STILL MD Diagnosis: Obstructive slee p apnea (adult) (pediatric) 1 tablet every morning --giv en discount voucher on 07/01/15 but was prescribed by Dr. Lee (PCP) Last Documented On 07/03/2022 5:27PM By Yajaira Still MD ; [facility] busPIRone HCl 15 MG OR TABS 07/01/2015 - 10/29/2015 Provider: LUCY STILL MD Diagnosis: Generalized anxi ety disorder One tablet twice a day Last Documented On 07/03/2022 5:27PM By Yajaira Still MD ; [facility] Paxil CR 37.5 MG OR TB24 07/01/2015 - 12/12/2015 Provider: LUCY TOMAS MD Diagnosis: Major depressive disorder, recurrent, unspecified *BID - One tablet twice a day Last Documented On 07/03/2022 5:27PM By Yajaira Still MD ; [facility] Nuvigil 200 MG OR TABS 06/05/2015 - 01/01/2016 Provide r: Diagnosis: 1 tablet daily Last Documented On 07/03/2022 5:27PM By AYDE SIMPSON LPN ; [facility] Modafinil 200 MG OR TABS 03/31/2015 - 07/01/2015 Provider: LUCY STILL MD Diagnosis: Obstructive slee p apnea (adult) (pediatric) as directed --1 tab in am and 1 tab at noon Last Documented On 07/03/2022 5:27PM By Yajaira Still MD ; [facility] Nuvigil 250 MG OR TABS 03/31/2015 - 04/14/2015 Provider: LUCY TOMAS MD Diagnosis: Obstructive slee p apnea (adult) (pediatric) 1 tablet every morning --14 samples for picker 03/31/15 Last Documented On 07/03/2022 5:27PM By Yajaira Still MD ; [facility] busPIRone HCl 15 MG OR TABS 03/20/2015 - 07/01/2015 Provider: LUCY STILL MD Diagnosis: Generalized anxi ety disorder One tablet twice a day Last Documented On 07/03/2022 5:27PM By Yajaira Still MD ; [facility] Paxil CR 37.5 MG OR TB24 03/20/2015 - 07/01/2015 Provider: LUCY TOMAS MD Diagnosis: Major depressive disorder, recurrent, unspecified *BID - One tablet twice a day Last Documented On 07/03/2022 5:27PM By Yajaira Still MD ; [facility] HM Vitamin B12 500 MCG OR TABS 01/01/2015 - 07/01/2015 Provider: Diagnosis: Take 1 tablet by mouth daily Last Documented On 07/03/2022 5:27PM By AYDE SIMPSON LPN ; [facility] Amphetamine-Dextroamphetamin e 30 MG OR TABS 01/01/2015 - 01/01/2016 Provider: Diagnosis: Sleep apnea, unspecified Take 1/2 tablet by mouth twice a day Last Documented On 07/03/2022 5:27PM By AYDE SIMPSON LPN ; [facility] Pramipexole Dihydrochloride 0.5 MG OR TABS 01/01/2015 - 06/29/2016 Provider: LUCY STILL MD Diagnosis: Restless legs syndrome as directed 1 and 1/2 tabs a t bedtime --- given by Dr. Conroy Last Documented On 07/03/2022 5:27PM By Yajaira Still MD ; [facility] busPIRone HCl 15 MG OR TABS 01/01/2015 - 03/20/2015 Provider: LUCY STILL MD Diagnosis: Generalized anxi ety disorder One tablet twice a day Last Documented On 07/03/2022 5:27PM By Yajaira Still MD ; [facility] Paxil CR 37.5 MG OR TB24 01/01/2015 - 03/20/2015 Provider: LUCY TOMAS MD Diagnosis: Major depressive disorder, recurrent, unspecified *BID - One tablet twice a day Last Documented On 07/03/2022 5:27PM By Yajaira Still MD ; [facility] Modafinil 200 MG OR TABS 01/01/2015 - 07/01/2015 Provider: LUCY STILL MD Diagnosis: Obstructive slee p apnea (adult) (pediatric) as directed 2 in the morning -- refilled by Dr. Conroy Last Documented On 07/03/2022 5:27PM By Yajaira Still MD ; [facility] Dialyvite Vitamin D 5000 125 MCG (5000 UT) OR CAPS 01/01/2015 - 01/01/2015 Provider: Diagnosis: Take 1 capsule by mouth weekly Last Documented On 07/03/2022 5:27PM By AYDE SIMPSON LPN ; [facility] HM Vitamin B12 1000 MCG OR TBCR 01/01/2015 - 6 Provider: Diagnosis: Last Documented On 07/03/2022 5:27PM By Yajaira Still MD ; [facility] Paxil CR 37.5 MG OR TB24 12/13/2014 - 01/01/2015 Provider: LUCY TOMAS MD Diagnosis: Major depressive disorder, recurrent, unspecified *BID - One tablet twice a day Last Documented On 07/03/2022 5:27PM By Yajaira Still MD ; [facility] Modafinil 200 MG OR TABS 07/29/2014 - 01/01/2015 Provider: LUCY STILL MD Diagnosis: OBSTRUCTIVE SLEE P APNEA as directed 2 in the morning -- refilled by Dr. Conroy Last Documented On 07/03/2022 5:27PM By Yajaira Still MD ; [facility] Paxil CR 37.5 MG OR TB24 07/18/2014 - 12/13/2014 Provider: LUCY TOMAS MD Diagnosis: MAJOR DEPRESSION DISORDER/RECURRENT *BID - One tablet twice a day Last Documented On 07/03/2022 5:27PM By Yajaira Still MD ; [facility] busPIRone HCl 15 MG OR TABS 07/18/2014 - 01/01/2015 Provider: LUCY STILL MD Diagnosis: GENERALIZED ANXI ETY DIS One tablet twice a day Last Documented On 07/03/2022 5:27PM By Yajaira Still MD ; [facility] Modafinil 200 MG OR TABS 01/18/2014 - 07/18/2014 Provider: LUCY STILL MD Diagnosis: OBSTRUCTIVE SLEE P APNEA 2 in the morning -- refilled by Dr. Conroy Last Documented On 07/03/2022 5:27PM By Yajaira Still MD ; [facility] Paxil CR 37.5 MG OR TB24 01/18/2014 - 07/18/2014 Provider: LUCY TOMAS MD Diagnosis: MAJOR DEPRESSION DISORDER/RECURRENT refilled last 12/27/13 for 3 refills Last Documented On 07/03/2022 5:27PM By Yajaira Still MD ; [facility] busPIRone HCl 15 MG OR TABS 01/18/2014 - 07/18/2014 Provider: LUCY STILL MD Diagnosis: GENERALIZED ANXI ETY DIS Last Documented On 07/03/2022 5:27PM By Yajaira Still MD ; [facility] Pramipexole Dihydrochloride 0.5 MG OR TABS 07/17/2013 - 01/01/2015 Provider: LUCY STILL MD Diagnosis: Restless Legs Syndrome 1 and 1/2 tabs at bedtime --- given by Dr. Conroy Last Documented On 07/03/2022 5:27PM By Yajaira Still MD ; [facility] Zantac 75 75 MG OR TABS 07/17/2013 - 07/01/2015 Provid er: Diagnosis: Last Documented On 07/03/2022 5:27PM By Yajaira Still MD ; [facility] ZyrTEC Allergy 10 MG OR TABS 07/17/2013 - 01/01/2016 P rovider: Diagnosis: Last Documented On 07/03/2022 5:27PM By Yajaira Still MD ; [facility] busPIRone HCl 15 MG OR TABS 07/17/2013 - 01/18/2014 Provider: LUCY STILL MD Diagnosis: GENERALIZED ANXI ETY DIS Last Documented On 07/03/2022 5:27PM By Yajaira Still MD ; [facility] Modafinil 200 MG OR TABS 07/17/2013 - 01/18/2014 Provider: LUCY STILL MD Diagnosis: OBSTRUCTIVE SLEE P APNEA 2 in the morning Last Documented On 07/03/2022 5:27PM By Yajaira Still MD ; [facility] Paxil CR 37.5 MG OR TB24 07/17/2013 - 01/18/2014 Provider: LUCY TOMAS MD Diagnosis: MAJOR DEPRESSION DISORDER/RECURRENT Last Documented On 07/03/2022 5:27PM By Yajaira Still MD ; [facility] busPIRone HCl 15 MG OR TABS 01/17/2013 - 07/17/2013 Provider: LUCY STILL MD Diagnosis: GENERALIZED ANXI ETY DIS Last Documented On 07/03/2022 5:27PM By Yajaira Still MD ; [facility] Fish Oil 1200 MG OR CAPS 01/17/2013 - 12/23/2022 Provi conrad: Diagnosis: Last Documented On 12/23/2022 4:48PM By ELISEO BARCENAS ; [facility] Paxil CR 37.5 MG OR TB24 01/17/2013 - 07/17/2013 Provider: LUCY TOMAS MD Diagnosis: MAJOR DEPRESSION DISORDER/RECURRENT Last Documented On 07/03/2022 5:27PM By Yajaira Still MD ; [facility] Modafinil 200 MG OR TABS 01/17/2013 - 07/17/2013 Provider: LUCY STILL MD Diagnosis: OBSTRUCTIVE SLEE P APNEA 2 in the morning Last Documented On 07/03/2022 5:27PM By Yajaira Still MD ; [facility] Paxil CR 37.5 MG OR TB24 07/19/2012 - 01/17/2013 Provider: LUCY TOMAS MD Diagnosis: DEPRESS PSYCHOSI S-MILD Last Documented On 07/03/2022 5:27PM By Yajaira Still MD ; [facility] Lovaza 1 GM OR CAPS 07/19/2012 - 01/17/2013 Provider: Diagnosis: 3 caps at bedtime Last Documented On 07/03/2022 5:27PM By VALENTINO GOLD ; [facility] Aspirin 81 MG OR TABS 07/19/2012 - 07/17/2013 Provider : Diagnosis: Last Documented On 07/03/2022 5:27PM By VALENTINO GOLD ; [facility] Pramipexole Dihydrochloride 0.5 MG OR TABS 07/19/2012 - 07/19/2012 Provider: Diagnosis: 1 and 1/2 tabs at bedtime Last Documented On 07/03/2022 5:27PM By VALENTINO GOLD ; [facility] Potassium Citrate ER 10 MEQ (1080 MG) OR TBCR 07/20/19 13 - 07/18/2014 Provider: Diagnosis: 2 tabs every morning Last Documented On 07/03/2022 5:27PM By VALENTINO GOLD ; [facility] busPIRone HCl 15 MG OR TABS 07/19/2012 - 01/17/2013 Provider: LUCY STILL MD Diagnosis: GENERALIZED ANXI ETY DIS Last Documented On 07/03/2022 5:27PM By Yajaira Still MD ; [facility] Pramipexole Dihydrochloride 0.5 MG OR TABS 07/19/2012 - 07/17/2013 Provider: LUCY STILL MD Diagnosis: Restless Legs Syndrome 1 and 1/2 tabs at bedtime --- given by Dr. Conroy Last Documented On 07/03/2022 5:27PM By Yajaira Still MD ; [facility] Modafinil 200 MG OR TABS 07/19/2012 - 01/17/2013 Provider: LUCY STILL MD Diagnosis: OBSTRUCTIVE SLEE P APNEA 2 in the morning Last Documented On 07/03/2022 5:27PM By Yajaira Still MD ; [facility] Chlorthalidone 25 MG OR TABS 03/08/2012 - 01/01/2016 P leathader: Diagnosis: Last Documented On 07/03/2022 5:27PM By VALENTINO GOLD ; [facility] busPIRone HCl 15 MG OR TABS 03/08/2012 - 07/19/2012 Pr ovider: Diagnosis: as needed Last Documented On 07/03/2022 5:27PM By VALENTINO GOLD ; [facility] Paxil CR 37.5 MG OR TB24 03/08/2012 - 07/19/2012 Provi conrad: Diagnosis: Last Documented On 07/03/2022 5:27PM By VALENTINO GOLD ; [facility] Crestor 10 MG OR TABS 03/08/2012 - 12/19/2019 Provider : Diagnosis: Last Documented On 07/03/2022 5:27PM By VALENTINO GOLD ; [facility] Modafinil 200 MG OR TABS 03/08/2012 - 07/19/2012 Provi conrad: Diagnosis: 1 and 1 half in the morning Last Documented On 07/03/2022 5:27PM By VALENTINO GOLD ; [facility] Niaspan 500 MG OR TBCR 03/08/2012 - 01/17/2013 Provide r: Diagnosis: Last Documented On 07/03/2022 5:27PM By VALENTINO GOLD ; [facility] Medications Administered Includes: Administered Medications in patient's chart No Administered Medications Recorded Vital Signs Includes: Vital Signs from 05/11/2023 through 05/10/2024 Vital Name 06/21/2023 04:58P Blood Pressure Sitting L 108/72 BP Cuff Size Regular Pulse Rate-Sitting (bpm) 86 Pulse Rhythm Regular Height (in) 67.5 Weight (lb) 176 Body Mass Index 27.2 Body Surface Area 1.9 Note: self reported vitals Last Documented: On 06/21/2023 4:59PM ; [facility] Results Includes: Results from 05/11/2023 through 05/10/2024 No Results Recorded For Specified Dates History of Present Illness History of Present Illness not supported for this document type No History of Present Illness Recorded Social History Description Last Updated Tobacco non-user 06/21/2023 Last Documented On 8:45PM ; [facility] Smoking Status Unknown Procedures and Surgical History Includes: Procedures from 05/11/2023 through 05/10/2024 Procedures Code Diagnosis Performing Provider Service Location Service Date PSYCHOTHERAPY 30 MIN W/ [place] [address] Major depressive disorder, recurrent, moderate, Generalized anxiety disorder, Restless legs syndrome, Narcolepsy without cataplexy LUCY STILL MD [facility] 06/21/2023 Last Documented On 4 4:04PM ; [facility] Medical History Includes: Medical History in patient's chart No Medical History Recorded Family History Includes: Family History in patient's chart No Family History Recorded Review of Systems Review of Systems not [...] Active Last Documented On 06/21/2023 4:56PM ; [facility] Note: Imported from external source. Cipro Allergy 12/20/2018 Active Last Documented On 06/21/2023 4:56PM ; [facility] Note: Imported from external source. Cipro Allergy Hives / Urticaria 12/20/2018 R esolved Last Documented On 3 4:47PM ; [facility] Aspartame Allergy Skin Rashes / Eruption of skin 06/29/2018 Active Last Documented On 06/21/2023 4:56PM ; [facility] Note: Imported from external source. Encounters Includes: Encounters from 05/11/2023 through 05/10/2024 Encounter Provider Location Date Check-In Time Check-Out Time Diagnosis TELEHEALTH ADULT PSYCH ESTABLISHED LUCY STILL MD [facility] 06/21/19 24 4:45PM 01/19/2012 11:59PM Major Depression, Recurrent,Gene ralized Anxiety Disorder,Obses sive Compulsive Disorder,Narco lepsy,Restless Legs Syndrome,Nonor ganic Sleep Apnea Obstructive Insurance Includes: Active Insurance Policies Plan Name Member ID Group # Subscriber Relationship Effect refugio Dates 1 - [facility] [id number] MARYAM MUNOZ 03/10/2020 - Unknown Clinical Notes Includes: Signed Clinical Notes starting from 03/26/2022 * Progress note Date Encounter Last Documented by 06/21/2023 TELEHEALTH ADULT PSYCH ESTABLISH ED Last documented on 07/11/2023; 8:45 PM, LUCY STILL MD; [facility] Top of Document Medication psychotherapy [...] planning to go for a trip to [place] and [place]. Once they landed in [place] last 03/26/2023 he felt sick and was [...] Primary Care Provider: Dr. Nicola Lee -- [place] Dr. Sukhdev Lujan -- Neurologist Dr. Rafita Salguero/Dr. Víctor Pichardo -Urologist -- [facility] Dr. Stephan Osuna -- Ophthamologist. Dr. Ron Richards -- Animal Ride Manager Diagnoses: mosquito-like bites or red spots on [...] -- 09/2014, another lithotripsy done 12/17/16 -- [facility] (Dr. Pichardo) -- 06/2017 stones removed, 11/2017 stones removed at [facility] -- passed kidney stone at home 11/2018. Overactive bladder - and urge to urinate -- given Myrbetriq 25 mg and given Tamsulosin 0.4 mg 04/30/22 and 02/01/22. Hyperlipidemia. Diabetes mellitus. Contact dermatitis -- he took a steroid, antibiotic, benadryl. Arthritis - right hand -- appointment with Dr. Eduard Bañuelos [facility]. Restless legs syndrome. Narcolepsy --Dr. Conroy added Adderall 11/2014. Allergic reaction - unknown origin -- hospitalized at [facility] 09/27/20 -- given Epipen and Prednisone [...] PREVIOUS PSYCHIATRIC HOSPITALIZATIONS: He was treated at [facility] by Dr. Radames Boyer from [phone]. PREVIOUS PSYCHIATRIC TREATMENT: Dr. Radames Boyer from [phone]. PREVIOUS PSYCHIATRIC MEDICATIONS: Anafranil-caused weight gain Prozac, which he took for 2 years. These were given by Dr. Radames Boyer from [place]. Social History Tobacco use: Tobacco non-user. Caffeine use: No coffee consumption -- He drinks 1 can of diet soda and 1 glass of tea a day. Tobacco use: Smoking status: Never smoker. Alcohol: Not using alcohol. Drug Use: Not using drugs (Illicit). 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 Marital: Marital history -- . He [...] Clinical summary provided to patient. * Call [phone] and /or go to the nearest emergency [...] now sees a different sleep specialist in [place], [place] Dr. Lujan -- Modafinil 200 mg [...]
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
== END 2024-05-10 10:38 | disposition home or self-care (01) ==
LOC: ANHSURGERY 10:43
PROVIDERS: PCP Family Medicine; Visit Provider Urology
DX: Z01.818 Encounter for other preprocedural examination (principal); N20.1 Calculus of ureter; E11.9 Type 2 diabetes mellitus without complications
CPT/HCPCS: 36415; 85610; 85730; 87086; 93005

== ENCOUNTER 2024-05-18 00:08 | Day surgery (SDC) | payer OTHER, SELFPAY ==
[2024-05-08 15:15] VITALS: BMI 27.1
--- NOTE | 2024-05-08 15:29 | PC.NURSE ---
Report to the Outpatient Waiting Room, entrance under the green pavilion located off [facility], at time __0600am on date _05/18/24 . Planned Procedure Time: _0730am .? Time changes happen often and if your time is changed the preop area will call you the afternoon before. - You and your visitor will be asked to self-screen and do not enter if you have any COVID symptoms. Please call surgeon if you need to reschedule. - A mask is optional within the hospital at this time. Patients may have clear liquids (water, carbonated beverages, clear teas, apple juice) until 3 hours prior to surgery with a maximum of 20 ounces. - No food from midnight until time of surgery and no smoking, or chewing tobacco (or any form of nicotine). No chewing gum, candy or mints. (0430am) Take only the following medications with a SIP of water on the morning of surgery: Buspirione DO NOT STOP ANY OF YOUR OTHER PRESCRIPTION MEDICATIONS PRIOR TO SURGERY EXCEPT THE FOLLOWING Hold all vitamins and supplements for 3 days per anesthesiologist.Date of last dose 05/14/24. Medications to discontinue per physician None . Date to take last dose None Please no make-up, nail setswana, hairspray, perfume, deodorant, or body powder the day of surgery.? No jewelry (including any body piercings) or valuables the day of surgery, leave them at home.? Please take a shower or bath the night before, or the morning of, surgery with an antibacterial soap.? Wear comfortable, loose fitting clothing.? - Jewelry must be removed prior to entering the operating room.? Rings and piercings that are not removed may be cut off. - The hospital will not accept responsibility for valuables.? - Please leave all valuables, including medications, at home the day of surgery. If you are going home after surgery, a licensed hazardous materials tanker driver must drive you home.? - NO public transportation without another adult if you receive anesthesia. - We recommend that an adult stay with you for 24 hours following discharge. - We also recommend that you do not drive, make important decision, drink alcoholic beverages, or take any drugs that were not prescribed by your health care provider for at least 24 hours after your discharge time. Follow any additional instructions given to you from your surgeon. Telephone instructions given to ____Patient and asked if any additional questions and then verbalized understanding. Patient advised to call surgeon office or pre surgery nurse liaison [phone] if any additional questions.
[2024-05-18] VITALS (9 sets, daily range): BP systolic 97–124; BP diastolic 56–81; PULSE 68–89; RESP 14–20; TEMP 36.2; O2SAT 96–100
--- NOTE | ~2024-05-18 | XR_ITS ---
Supine and upright views of the abdomen Clinical history: Left-sided stone COMPARISON: 05/05/2024 Findings: Bowel gas pattern is nonspecific. No evidence for obstruction or free air. Left ureteral st ent in place. Multiple left renal stones are present.. Osseous structures are intact. Impression: Multiple left renal stones with left ureteral stent in place. No definite ureteral stone evident. Reviewed, dictated and finalized at location . Impression: Multiple left renal stones with left ureteral stent in place. No definite urete ral stone evident.
--- OUTSIDE RECORDS SUMMARY | 2024-05-18 00:13 | XMS_ITS | Clinical Summary ---
Author Organization [facility] Address [address] [place] [address] Phone Care Team Providers Care Mri Special Procedures Technologist Name Role Phone WILIAM PHILLIPS, LUCY JUNG Unavailable [phone] Reason for Visit and Chief Complaint The Chief Complaint is: follow up for anxiety and depression Problems Includes: Problems addressed during this encounter and other active Problems Current Visit Onset Date Resolved Date Provider Conditio n Status Narcolepsy 10/05/2014 Active Last Documented On 3 5:48PM ; [facility] 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 Last Documented On 3 5:45PM ; [facility] Major Depression, Recurrent 07/19/2012 Active Last Documented On 3 5:45PM ; [facility] Restless Legs Syndrome 07/19/2012 Ac tive Last Documented On 3 5:45PM ; [facility] Obsessive Compulsive Disorder 03/08/2012 Active Last Documented On 3 5:50PM ; [facility] Generalized Anxiety Disorder 03/08/2012 Active Last Documented On 3 5:42PM ; [facility] Obsessive Compulsive Disorder 03/08/2012 Inactive Last Documented On 3 5:42PM ; [facility] Past Visits Onset Date Resolved Date Provider Condition Status Diabetes Mellitus 07/19/2012 Active Last Documented On 3 5:45PM ; [facility] Gerd 03/08/2012 Active Last Documented On 3 5:42PM ; [facility] Hyperlipidemia 03/08/2012 Active Last Documented On 3 5:42PM ; [facility] Nephrolithiasis 03/08/2012 Active Last Documented On 3 5:42PM ; [facility] Plan of Treatment Major depressive disorder - Paxil 40 mg 1 and 1/2 tabs daily Obsessive Compulsive Disorder - Paxil 40 mg 1 and 1/2 tab daily Generalized Anxiety Disorder - Buspar 15 mg 1 tab 2 x a day LISA - Vpap tx is no longer helping, he now sees a different sleep specialist in [place], [place] Dr. Lujan -- Modafinil 200 mg in am Restless legs Syndrome - Pramipexole 1.5 mg in evening - Last Documented On 01/03/2023 12:30PM ; [facility] Future Appointments Date Time Location Provi conrad [facility]LEHEALTH ADULT PSYCH ESTABLISHED 06/20/2024 4:40PM [facility] STILL MD Last Documented On 4 5:56PM ; [facility] Education and Decision Aids were provided during visit for: Discussed good sleep hygiene habits Last Documented On 3 6:40PM ; [facility] Assessments Includes: Assessments from this encounter Findings - Obstructive sleep apnea - Last Documented On 01/03/2023 12:30PM ; [facility] - Restless legs syndrome - Last Documented On 01/03/2023 12:30PM ; [facility] - Major depression, recurrent - Last Documented On 01/03/2023 12:30PM ; [facility] - Narcolepsy - Last Documented On 01/03/2023 12:30PM ; [facility] - Generalized anxiety disorder - Last Documented On 01/03/2023 12:30PM ; [facility] - Obsessive compulsive disorder - Last Documented On 01/03/2023 12:30PM ; [facility] Instructions Includes: Instructions from this encounter Education and Decision Aids were provided during visit for: Discussed good sleep hygiene habits Last Documented On 3 6:40PM ; [facility] Medical Equipment - Implanted Devices Includes: Current Devices No Medical Equipment Recorded Medications Includes: Medications discussed during this encounter and other current Medications Discontinued / Stopped on this date on 06/23/2022 Gemtesa 75 MG OR TABS Provider: Diagnosis: Last Documented On 12/23/2022 4:48PM By ELISEO BARCENAS ; [facility] Current Medications (continue as prescribed) Paxil 40 MG Oral Tablet 06/21/2023 Provider: BRIONNA STILL MD Diagnosis: Obsessive-compul sive disorder, unspecified TAKE 1 AND 1/2 TABLETS BY [facility] DAILY DIRECTED Last Documented On 06/21/2023 5:42PM By Yajaira Still MD ; [facility] busPIRone HCl 15 MG Oral Tablet 06/20/2023 Provider: LUCY STILL MD Diagnosis: Generalized anxi ety disorder One tablet twice a day Last Documented On 06/20/2023 10:49AM By Yajaira Still MD ; [facility] Pramipexole Dihydrochloride 1 MG Oral Tablet 04/20/2023 Provider: NICOLA Archibald Diagnosis: 1 and 1/2 tab in the evening Last Documented On 06/21/2023 5:48PM By Yajaira Still MD ; [facility] Fish Oil 1200 MG Oral Capsule 12/23/2022 Provider: Diagnosis: 3 caps daily Last Documented On 12/23/2022 4:48PM By ELISEO BARCENAS ; [facility] oxyBUTYnin Chloride ER 15 MG Oral Tablet Extended Release 24 Hour 11/15/2022 Provider: RAFITA RUGGIERO MD Diagnosis: 1 tab daily Last Documented On 12/23/2022 4:48PM By ELISEO DIAL RMA ; [facility] Januvia 100 MG OR TABS 10/02/2021 Provider: Diagnosis: 1 tab daily Last Documented On 07/03/2022 5:27PM By ELISEO BARCENAS ; [facility] FeroSul 325 (65 Fe) MG OR TABS 05/28/2021 Provider: Diagnosis: 1 tab daily Last Documented On 07/03/2022 5:27PM By ELISEO BARCENAS ; [facility] EPINEPHrine 0.3 MG/0.3ML IJ SOAJ 2020 Provider : Diagnosis: use as directed Last Documented On 07/03/2022 5:27PM By ELISEO BARCENAS ; [facility] Rosuvastatin Calcium 10 MG OR TABS 06/18/2019 Provid er: Diagnosis: one tablet daily Last Documented On 07/03/2022 5:27PM By JENNIFER CARMICHAEL ; [facility] Modafinil 200 MG OR TABS 07/24/2018 Provider: MET SHELDON STILL MD Diagnosis: Obstructive slee p apnea (adult) (pediatric) as directed -- 1 tab in am Last Documented On 07/03/2022 5:27PM By Yajaira Still MD ; [facility] Amphetamine-Dextroamphetamin e 30 MG OR TABS 01/01/2016 Provider: LUCY STILL MD Diagnosis: Sleep apnea, unspecified as directed Take 1/2 tablet in am and 1/2 tab at 2: 30 pm Last Documented On 07/03/2022 5:27PM By Yajaira Still MD ; [facility] PA Vitamin D-3 25 MCG (1000 UT) OR TABS 01/01/2015 P rovider: Diagnosis: Last Documented On 07/03/2022 5:27PM By Yajaira Still MD ; [facility] metFORMIN HCl 1000 MG TABS 07/19/2012 Provider: Diagnosis: Last Documented On 07/03/2022 5:27PM By VALENTINO GOLD ; [facility] Omeprazole 20 MG OR CPDR 03/08/2012 Provider: Diagnosis: Last Documented On 07/03/2022 5:27PM By VALENTINO GOLD ; [facility] Past Medications on file busPIRone HCl 7.5 MG OR TABS 03/17/2018 - 04/16/2018 P rovider: Diagnosis: Major depressive disorder, recurrent, moderate 2 tablets twice a day Last Documented On 07/03/2022 5:27PM By ELISEO BARCENAS ; [facility] Nuvigil 250 MG OR TABS 03/31/2015 - 04/14/2015 Provider: LUCY TOMAS MD Diagnosis: Obstructive slee p apnea (adult) (pediatric) 1 tablet every morning --14 samples for product picker 03/31/15 Last Documented On 07/03/2022 5:27PM By Yajaira Still MD ; [facility] Medications Administered Includes: Administered Medications from this [...] 18 months to qualify for a pension residential. 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 His highest grade level achieved was graduate school. 12/23/2022 Last Documented On 3 4:55PM ; [facility] Tobacco non-user 12/23/2022 Last Documented On 3 12:30PM ; [facility] Smoking Status Unknown Procedures and Surgical History Includes: Procedures from this encounter Procedures Code Diagnosis Performing Provider Service L ocation Service Date education and instructions Last Documented On 3 4:32PM ; [facility] supportive care and encourag ement--given positive reinforcement to keep patient motivated and active Last Documented On 3 5:00PM ; [facility] ~* Call [phone] and /or go t o the nearest emergency room or call me if suicidal/homicidal ideation or other serious concerns arise. ~ ~* I gave instructions to call me should there be any questions or concerns. ~ ~* Patient voiced understanding and agreed to treatment plan Last Documented On 3 4:49PM ; [facility] dangerousness assessment: no suicide risk 3085F Last Documented On 3 4:32PM ; [facility] use of tobacco assessment performed 1000F Last Documented On 3 4:50PM ; [facility] patient screened for future fall risk: documentation of any fall with injury in past year - no recent falls 1100F Last Documented On 3 4:49PM ; [facility] review of medications documented 1160F Last Documented On 3 4:49PM ; [facility] screening for adult depression: impressi on and score - not suicidal Last Documented On 3 4:50PM ; [facility] standardized depression screening: posit refugio for symptoms Last Documented On 3 4:50PM ; [facility] encouragement to exercise - balanced pippa l plan, low fat low carb diet Last Documented On 3 4:49PM ; [facility] Clinical summary provided to patient Last Documented On 3 4:32PM ; [facility] PHQ-9: total score 2 Last Documented On 3 4:58PM ; [facility] Medical History Includes: Medical History addressed during this encounter Description Last Updated Primary Care Provider: Dr. Nahed Lee -- Josiah Lujan -- Neurologist Dr. Rafita Salguero/Dr. Víctor Pichardo -Urologist -- [facility] Dr. Stephan Osuna -- Ophthamologist.Dr. Ron [...] hand -- appointment with Dr. Eduard Bañuelos [facility]. Restless legs syndrome. Narcolepsy --Dr. [...] 201012/23/2022 Last Documented On 3 6:41PM ; [facility] Family History Includes: Family History addressed during this encounter Description Last Updated Family medical history: No significant f amily history 12/23/2022 Last Documented On 3 4:56PM ; [facility] Review of Systems Includes: [...] Active Last Documented On 06/21/2023 4:56PM ; [facility] Note: Imported from external source. Cipro Allergy 12/20/2018 Active Last Documented On 06/21/2023 4:56PM ; [facility] Note: Imported from external source. Cipro Allergy Hives / Urticaria 12/20/2018 R esolved Last Documented On 4:47PM ; [facility] Aspartame Allergy Skin Rashes / Eruption of skin 06/29/2018 Active Last Documented On 06/21/2023 4:56PM ; [facility] Note: Imported from external source. Encounters Encounter Provider Location Date Check-In Time Check-Out Time Diagnosis TELEHEALTH ADULT PSYCH ESTABLISHED LUCY STILL MD [facility] 12/24/19 4:32PM 11:59PM Nonorganic Sleep Apnea Obstructive,O bsessive Compulsive Disorder,Rest less Legs Syndrome,Gene ralized Anxiety Disorder,Jinny r Depression, Recurrent,Mike colepsy Insurance Includes: Active Insurance Policies Plan Name Member ID Group # Subscriber Relationship Effect refugio Dates 1 - [facility] [id number] MARYAM MUNOZ 03/10/2020 - Unknown Clinical Notes Includes: Clinical Notes from this encounter * Progress note Date Encounter Last Documented by 12/23/2022 TELEHEALTH ADULT PSYCH ESTABLISH ED Last documented on 01/03/2023; 12:30 PM, LUCY TSILL MD; [facility] Top of Document Medication psychotherapy 30 minutes [...] 18 months to qualify for a pension residential. He is busy driving his 23 y/o [...] Dr. Rafita Salguero/Dr. Víctor Pichardo -Urologist -- [facility] Dr. Stephan Osuna -- Ophthamologist. Dr. Ron Richards -- Track Repair Supervisor Diagnoses: mosquito-like bites or red spots on [...] hand -- appointment with Dr. Eduard Bañuelos [facility]. Restless legs syndrome. Narcolepsy --Dr. [...] PREVIOUS PSYCHIATRIC HOSPITALIZATIONS: He was treated at [facility] by Dr. Radames Boyer from [id number]. PREVIOUS PSYCHIATRIC TREATMENT: Dr. Radames Boyer from [id number]. PREVIOUS PSYCHIATRIC MEDICATIONS: Anafranil-caused weight gain Prozac, which he took for 2 years. These were given by Dr. Radames Boyer from [place]. Social History Tobacco use: Tobacco non-user. Caffeine use: No coffee consumption -- He drinks 1 can of diet soda and 1 glass of tea a day. Tobacco use: Smoking status: Never smoker. Alcohol: Not using alcohol. Drug Use: Not using drugs (Illicit). 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 Marital: Marital history -- . He [...] Clinical summary provided to patient. * Call [phone] and /or go to the nearest emergency [...] now sees a different sleep specialist in [place], [place] Dr. Lujan -- Modafinil 200 mg [...]
--- OUTSIDE RECORDS SUMMARY | 2024-05-18 00:13 | XMS_ITS | Clinical Summary ---
Author Organization [facility] Medical [facility] [address] Address [address] [place] [address] Care Team Providers Care Production Quality Manager Name Role Phone Giorgio Lee MD Primary Care Provider [phone] Allergies Active Allergy Reactions Criticality Noted Date [...] a meal 0 0 6 Active omega 6-xcu-zan-fish oil (FISH OIL) 360-1,200 mg capsule,delayed release(DR/EC) [...] (06/13/2018): Added automatically from request for surgery [id number] Overweight (BMI 25.0-29.9) 10/22/2016 Hay fever 01/26/2016 [...] on file Legal Sex Male 11:57 PM TITLE AGENT Gender Identity Male 01/13/2019 7:57 PM TITLE AGENT Sexual Orientation Straight 01/13/2019 7: 57 PM TITLE AGENT Obstetrics History Last Filed Vital Signs Vital [...] LIPID PANEL Routine 04/07/2013 8:4 5 PM TITLE AGENT from Last 3 Months or Most Recently Relevant to Health Maintenance Results * COLONOSCOPY (07/28/2018 9:02 AM CDT) Anatomical Region Laterality Modality Other Narrative Procedure Note Ramo Meza MD - 07/28/2018 9:02 AM CDT [facility] Patient Name: Chuy Mitchell Procedure Date: 07/28/2018 9:02 AM Date of : 1965 Admit Type: Outpatient Age: 52 Gender: Male Attending MD: Ramo Meza M.D. Room: [facility] ENDOSCOPY ROOM 1 Note Status: Finalized [...] Repeat colonoscopy in 3 - 5 years [facility]. - Continue present medications. Medicines: Monitored Anesthesia [...] passed under direct vision.The Pediatric Colonoscope [id number]-[id number] was introduced through the anus and advanced [...] 9:02 AM Procedure Code(s): --- Professional --- 47784, Colonoscopy, flexible; with biopsy, single or multiple Diagnosis Code(s): --- Professional --- Z80.0, Family history of malignant neoplasm of digestive organs Z86.010, Personal history of colonic polyps K64.8, Other hemorrhoids D12.5, Benign neoplasm of sigmoid colon K57.30, Diverticulosis of large intestine without perforation orabscess without bleeding CPT copyright 2017 [employer]. All rights reserved. The codes documented in this report are preliminary and upon practice nurse reviewmay be revised to meet current compliance requirements. Recognized by the [place] [employer] for promoting quality [...] mL/min/1.73m2 *Relative to young adult level If -[place] multiply value by 1.16. Estimated glomerular filtration [...] BLOOD ORDERABLES Final Resul t MARCIN LOWE GERSON [facility] Department of Laboratories [place], [place] [id number] * (ABNORMAL) Serum lipid panel (04/07/2013 8:45 PM TITLE AGENT) LDL 54 0 - 129 mg/dl HISTORICAL [...] revised on 2007. Serum 04/07/2013 8:45 PM TITLE AGENT us Edgar Pratt MD LAB BLOOD ORDERABLES Final Resul t HISTORICAL RESULTS from Last 3 Months or Most Recently Relevant to Health Maintenance Insurance [facility] Care Teams Production Quality Manager Relationship Specialty Start Date End Date Giorgio Lee MD PCP - General 06/04/16
--- OUTSIDE RECORDS SUMMARY | 2024-05-18 00:13 | XMS_ITS | Clinical Summary ---
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 Last Documented On 3 5:45PM ; [facility] Major Depression, Recurrent 07/19/2012 Active Last Documented On 3 5:45PM ; [facility] Restless Legs Syndrome 07/19/2012 Ac tive Last Documented On 3 5:45PM ; [facility] Obsessive Compulsive Disorder 03/08/2012 Active Last Documented On 3 5:50PM ; [facility] Generalized Anxiety Disorder 03/08/2012 Active Last Documented On 3 5:42PM ; [facility] Obsessive Compulsive Disorder 03/08/2012 Inactive Last Documented On 3 5:42PM ; [facility] Past Visits Onset Date Resolved Date Provider Condition Status Diabetes Mellitus 07/19/2012 Active Last Documented On 3 5:45PM ; [facility] Gerd 03/08/2012 Active Last Documented On 3 5:42PM ; [facility] Hyperlipidemia 03/08/2012 Active Last Documented On 3 5:42PM ; [facility] Nephrolithiasis 03/08/2012 Active Last Documented On 3 5:42PM ; [facility] Plan of Treatment Major depressive disorder - Paxil 40 mg 1 and 1/2 tabs daily Obsessive Compulsive Disorder - Paxil 40 mg 1 and 1/2 tab daily Generalized Anxiety Disorder - Buspar 15 mg 1 tab 2 x a day LISA - Vpap tx is no longer helping, he now sees a different sleep specialist in [place], [place] Dr. Lujan -- Modafinil 200 mg in am -- he is now back to wearing his CPAP Restless legs Syndrome - Pramipexole 1.5 mg in evening - Last Documented On 07/11/2023 8:45PM ; [facility] Future Appointments Date Time Location Provi conrad TELEHEALTH ADULT PSYCH ESTABLISHED 06/20/2024 4:40PM [facility] STILL MD Last Documented On 5:56PM ; [facility] Assessments Includes: Assessments from this encounter Findings - Obstructive sleep apnea - Last Documented On 07/11/2023 8:45PM ; [facility] - Restless legs syndrome - Last Documented On 07/11/2023 8:45PM ; [facility] - Major depression, recurrent - Last Documented On 07/11/2023 8:45PM ; [facility] - Narcolepsy - Last Documented On 07/11/2023 8:45PM ; [facility] - Generalized anxiety disorder - Last Documented On 07/11/2023 8:45PM ; [facility] - Obsessive compulsive disorder - Last Documented On 07/11/2023 8:45PM ; [facility] Medical Equipment - Implanted Devices Includes: Current Devices No Medical Equipment Recorded Medications Includes: Medications discussed during this encounter and other current Medications Discontinued / Stopped on this date on 06/06/2020 Pramipexole Dihydrochloride 1 MG OR TABS Provider: Diagnosis: Last Documented On 06/21/2023 5:48PM By Yajaira Still MD ; [facility] New / Renewed during this visit LUCY STILL MD on 06/21/2023 Paxil 40 MG Oral Tablet Provider: BRIONNA STILL MD 90 day supply: 135 tablet, 3 refills Diagnosis: Obsessive-compulsive disorder, unspecified TAKE 1 AND 1/2 TABLETS BY [facility] DAILY DIRECTED Pharmacy: [facility] [address], [id number] - Last Documented On 06/21/2023 5:42PM By Yajaira Still MD ; [facility] Current Medications (continue as prescribed) busPIRone HCl 15 MG Oral Tablet 06/20/2023 Provider: LUCY STILL MD Diagnosis: Generalized anxi ety disorder One tablet twice a day Last Documented On 06/20/2023 10:49AM By Yajaira Still MD ; [facility] Pramipexole Dihydrochloride 1 MG Oral Tablet 04/20/2023 Provider: NICOLA Archibald Diagnosis: 1 and 1/2 tab in the evening Last Documented On 06/21/2023 5:48PM By Yajaira Still MD ; [facility] Fish Oil 1200 MG Oral Capsule 12/23/2022 Provider: Diagnosis: 3 caps daily Last Documented On 12/23/2022 4:48PM By ELISEO BARCENAS ; [facility] oxyBUTYnin Chloride ER 15 MG Oral Tablet Extended Release 24 Hour 11/15/2022 Provider: RAFITA RUGGIERO MD Diagnosis: 1 tab daily Last Documented On 12/23/2022 4:48PM By ELISEO DIAL RMA ; [facility] Januvia 100 MG OR TABS 10/02/2021 Provider: Diagnosis: 1 tab daily Last Documented On 07/03/2022 5:27PM By ELISEO BARCENAS ; [facility] FeroSul 325 (65 Fe) MG OR TABS 05/28/2021 Provider: Diagnosis: 1 tab daily Last Documented On 07/03/2022 5:27PM By ELISEO BARCENAS ; [facility] EPINEPHrine 0.3 MG/0.3ML IJ SOAJ 2020 Provider : Diagnosis: use as directed Last Documented On 07/03/2022 5:27PM By ELISEO BARCENAS ; [facility] Rosuvastatin Calcium 10 MG OR TABS 06/18/2019 Provid er: Diagnosis: one tablet daily Last Documented On 07/03/2022 5:27PM By JENNIFER CARMICHAEL ; [facility] Modafinil 200 MG OR TABS 07/24/2018 Provider: MET SHELDON STILL MD Diagnosis: Obstructive slee p apnea (adult) (pediatric) as directed -- 1 tab in am Last Documented On 07/03/2022 5:27PM By Yajaira Still MD ; [facility] Amphetamine-Dextroamphetamin e 30 MG OR TABS 01/01/2016 Provider: LUCY STILL MD Diagnosis: Sleep apnea, unspecified as directed Take 1/2 tablet in am and 1/2 tab at 2: 30 pm Last Documented On 07/03/2022 5:27PM By Yajaira Still MD ; [facility] Vitamin D-3 25 MCG (1000 UT) OR TABS 01/01/2015 P rovider: Diagnosis: Last Documented On 07/03/2022 5:27PM By Yajaira Still MD ; [facility] metFORMIN HCl 1000 MG TABS 07/19/2012 Provider: Diagnosis: Last Documented On 07/03/2022 5:27PM By VALENTINO GOLD ; [facility] Omeprazole 20 MG OR CPDR 03/08/2012 Provider: Diagnosis: Last Documented On 07/03/2022 5:27PM By VALENTINO GOLD ; [facility] Past Medications on file busPIRone HCl 7.5 MG OR TABS 03/17/2018 - 04/16/2018 P rovider: Diagnosis: Major depressive disorder, recurrent, moderate 2 tablets twice a day Last Documented On 07/03/2022 5:27PM By ELISEO BARCENAS ; [facility] Nuvigil 250 MG OR TABS 03/31/2015 - 04/14/2015 Provider: LUCY TOMAS MD Diagnosis: Obstructive slee p apnea (adult) (pediatric) 1 tablet every morning --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 - Allergy list reviewed - Past medical history reviewed - Medication list reviewed Karlie reported that he has been doing good [...] planning to go for a trip to [facility] and [facility]. Once they landed in [facility] last 03/26/2023 he felt sick and was having some coughing fits and immediately he thought that he got COVID. His brought some home test kits for COVID and he was positive for COVID and so he and his were not able to continue the tour to [facility] so they had to come back home. 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 His highest grade level achieved was graduate school. 06/21/2023 Last Documented On 4 4:45PM ; [facility] Tobacco non-user 06/21/2023 Last Documented On 4 8:45PM ; [facility] Smoking Status Unknown Procedures and Surgical History Includes: Procedures from this encounter Procedures Code Diagnosis Performing Provider Service Location Service Date PSYCHOTHERAPY 30 MIN W/ [place] [address] Major depressive disorder, recurrent, moderate, Generalized anxiety disorder, Restless legs syndrome, Narcolepsy without cataplexy LUCY STILL MD [facility]PS[facility] 06/21/2023 Last Documented On 4 4:04PM ; [facility] education and instructions Last Documented On 4 4:45PM ; [facility] supportive care and encourag ement--given positive reinforcement to keep patient motivated and active Last Documented On 4 5:05PM ; [facility] ~* Call [phone] and /or go t o the nearest emergency room or call me if suicidal/homicidal ideation or other serious concerns arise. ~ ~* I gave instructions to call me should there be any questions or concerns. ~ ~* Patient voiced understanding and agreed to treatment plan Last Documented On 4 4:57PM ; [facility] dangerousness assessment: no suicide risk 3085F Last Documented On 4 4:45PM ; [facility] use of tobacco assessment performed 1000F Last Documented On 4 4:45PM ; [facility] patient screened for future fall risk: documentation of any fall with injury in past year - no recent falls 1100F Last Documented On 4 4:45PM ; [facility] review of medications documented 1160F Last Documented On 4 4:45PM ; [facility] assessment of suicide risk performed - n ot suicidal Last Documented On 4 4:57PM ; [facility] screening for adult depressi on: impression and score - please see above for treatment and PHQ score Last Documented On 4 4:57PM ; [facility] standardized depression screening: posit refugio for symptoms Last Documented On 4 4:45PM ; [facility] encouragement to exercise - balanced pippa l plan, low fat low carb diet Last Documented On 4 4:57PM ; [facility] Clinical summary provided to patient Last Documented On 4 4:45PM ; [facility] PHQ-9: total score 2 Last Documented On 4 12:11PM ; [facility] Medical History Includes: Medical History addressed during this encounter Description Last Updated Primary Care Provider: Dr. Nahed Lee -- Josiah Lujan -- Neurologist Dr. Rafita Salguero/Dr. Víctor Pichardo -Urologist -- [facility] Dr. Stephan Osuna -- Ophthamologist.Dr. Ron Richards [...] -- 09/2014, another lithotripsy done 12/17/16 -- [facility] (Dr. Pichardo) -- 06/2017 stones removed, 11/2017 stones removed at [facility] -- passed kidney stone at home 11/2018. Overactive bladder - and urge to urinate -- given Myrbetriq 25 mg and given Tamsulosin 0.4 mg 04/30/22 and 02/01/22. Hyperlipidemia. Diabetes mellitus. Contact dermatitis -- he took a steroid, antibiotic, benadryl. Arthritis - right hand -- appointment with Dr. Eduard Bañuelos [facility]. Restless legs syndrome. Narcolepsy --Dr. Conroy added Adderall 11/2014. Allergic reaction - unknown origin -- hospitalized at [facility] 09/27/20 -- given Epipen and Prednisone 10 [...] 201006/21/2023 Last Documented On 4 5:04PM ; [facility] Family History Includes: Family History addressed during this encounter Description Last Updated Family medical history: No significant f amily history 06/21/2023 Last Documented On 4 4:45PM ; [facility] Review of Systems Includes: Review of Systems [...] Active Last Documented On 06/21/2023 4:56PM ; [facility] Note: Imported from external source. Cipro Allergy 12/20/2018 Active Last Documented On 06/21/2023 4:56PM ; [facility] Note: Imported from external source. Cipro Allergy Hives / Urticaria 12/20/2018 R esolved Last Documented On 3 4:47PM ; [facility] Aspartame Allergy Skin Rashes / Eruption of skin 06/29/2018 Active Last Documented On 06/21/2023 4:56PM ; [facility] Note: Imported from external source. Encounters Encounter Provider Location Date Check-In Time Check-Out Time Diagnosis TELEHEALTH ADULT PSYCH ESTABLISHED LUCY STILL MD [facility] 06/21/19 24 4:45PM 11:59PM Major Depression, Recurrent,Gene ralized Anxiety Disorder,Obses sive Compulsive Disorder,Narco lepsy,Restless Legs Syndrome,Nonor ganic Sleep Apnea Obstructive Insurance Includes: Active Insurance Policies Plan Name Member ID Group # Subscriber Relationship Effect refugio Dates 1 - [facility] [id number] MARYAM MUNOZ 03/10/2020 - Unknown Clinical Notes Includes: Clinical Notes from this encounter * Progress note Date Encounter Last Documented by 06/21/2023 TELEHEALTH ADULT PSYCH ESTABLISH ED Last documented on 07/11/2023; 8:45 PM, LUCY STILL MD; [facility] Top of Document Medication psychotherapy [...] medical history reviewed - Medication list reviewed Karlie reported that he has been doing good [...] planning to go for a trip to [facility] and [place]. Once they landed in [facility] last 03/26/2023 he felt sick and was [...] Primary Care Provider: Dr. Nicola Lee -- [place] Dr. Sukhdev Lujan -- Neurologist Dr. Rafita Salguero/Dr. Víctor Pichardo -Urologist -- [facility] Dr. Stephan Osuna -- Ophthamologist. Dr. Ron Richards -- Legal Writing Professor Diagnoses: mosquito-like bites or red spots on [...] -- 09/2014, another lithotripsy done 12/17/16 -- [facility] (Dr. Pichardo) -- 06/2017 stones removed, 11/2017 stones removed at [facility] -- passed kidney stone at home 11/2018. Overactive bladder - and urge to urinate -- given Myrbetriq 25 mg and given Tamsulosin 0.4 mg 04/30/22 and 02/01/22. Hyperlipidemia. Diabetes mellitus. Contact dermatitis -- he took a steroid, antibiotic, benadryl. Arthritis - right hand -- appointment with Dr. Eduard Bañuelos [facility]. Restless legs syndrome. Narcolepsy --Dr. Conroy added Adderall 11/2014. Allergic reaction - unknown origin -- hospitalized at [facility] 09/27/20 -- given Epipen and Prednisone 10 [...] PREVIOUS PSYCHIATRIC HOSPITALIZATIONS: He was treated at [facility] by Dr. Radames Boyer from [id number]. PREVIOUS PSYCHIATRIC TREATMENT: Dr. Radames Boyer from [id number]. PREVIOUS PSYCHIATRIC MEDICATIONS: Anafranil-caused weight gain Prozac, which he took for 2 years. These were given by Dr. Radames Boyer from [place]. Social History Tobacco use: Tobacco non-user. Caffeine use: No coffee consumption -- He drinks 1 can of diet soda and 1 glass of tea a day. Tobacco use: Smoking status: Never smoker. Alcohol: Not using alcohol. Drug Use: Not using drugs (Illicit). 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 Marital: Marital history -- . He [...] Clinical summary provided to patient. * Call [phone] and /or go to the nearest emergency [...] now sees a different sleep specialist in [place], [place] Dr. Lujan -- Modafinil 200 mg [...]
--- OUTSIDE RECORDS SUMMARY | 2024-05-18 00:13 | XMS_ITS | Clinical Summary ---
Author Organization [facility] Address [address] [place] [address] Phone Care Team Providers Care Fisher Sponge Hooking Name Role Phone WILIAM PHILLIPS, LUCY JUNG [facility] [phone] Reason for Visit and Chief Complaint [Patient Encounter] Problems Includes: Problems addressed during this encounter and other active Problems All Visits Onset Date Resolved Date Provider Condition S tatus Narcolepsy 10/05/2014 Active Last Documented On 3 5:48PM ; [facility] Diabetes Mellitus 07/19/2012 Active Last Documented On 3 5:45PM ; 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 Major Depression, Recurrent 07/19/2012 Active Last Documented On 3 5:45PM ; [facility] Restless Legs Syndrome 07/19/2012 Ac tive Last Documented On 3 5:45PM ; [facility] Obsessive Compulsive Disorder 03/08/2012 Active Last Documented On 3 5:50PM ; [facility] Generalized Anxiety Disorder 03/08/2012 Active Last Documented On 3 5:42PM ; [facility] Gerd 03/08/2012 Active Last Documented On 3 5:42PM ; [facility] Hyperlipidemia 03/08/2012 Active Last Documented On 3 5:42PM ; [facility] Nephrolithiasis 03/08/2012 Active Last Documented On 3 5:42PM ; [facility] Plan of Treatment Future Appointments Date Time Location Provi conrad TELEHEALTH ADULT PSYCH ESTABLISHED 06/20/2024 4:40PM [facility] LUCY STILL MD Last Documented On 5:56PM ; [facility] Assessments Includes: Assessments from this encounter No [...] 5:27PM By Yajaira Still MD ; [facility] Current Medications (continue as prescribed) Paxil 40 MG Oral Tablet 06/21/2023 Provider: BRIONNA STILL MD Diagnosis: Obsessive-compul sive disorder, unspecified TAKE 1 AND 1/2 TABLETS BY [facility] DAILY DIRECTED Last Documented On 06/21/2023 5:42PM By Yajaira Still MD ; [facility] busPIRone HCl 15 MG Oral Tablet 06/20/2023 Provider: LUCY STILL MD Diagnosis: Generalized anxi ety disorder One tablet twice a day Last Documented On 06/20/2023 10:49AM By Yajaira Still MD ; [facility] Pramipexole Dihydrochloride 1 MG Oral Tablet 04/20/2023 Provider: NICOLA Archibald Diagnosis: 1 and 1/2 tab in the evening Last Documented On 06/21/2023 5:48PM By Yajaira Still MD ; [facility] Fish Oil 1200 MG Oral Capsule 12/23/2022 Provider: Diagnosis: 3 caps daily Last Documented On 12/23/2022 4:48PM By ELISEO BARCENAS ; [facility] oxyBUTYnin Chloride ER 15 MG Oral Tablet Extended Release 24 Hour 11/15/2022 Provider: LAYO RUGGIERO MD Diagnosis: 1 tab daily Last Documented On 12/23/2022 4:48PM By ELISEO BARCENAS ; [facility] Januvia 100 MG OR TABS 10/02/2021 Provider: Diagnosis: 1 tab daily Last Documented On 07/03/2022 5:27PM By ELISEO BARCENAS ; [facility] FeroSul 325 (65 Fe) MG OR TABS 05/28/2021 Provider: Diagnosis: 1 tab daily Last Documented On 07/03/2022 5:27PM By ELISEO BARCENAS ; [facility] EPINEPHrine 0.3 MG/0.3ML IJ SOAJ 2020 Provider : Diagnosis: use as directed Last Documented On 07/03/2022 5:27PM By ELISEO BARCENAS ; [facility] Rosuvastatin Calcium 10 MG OR TABS 06/18/2019 Provid er: Diagnosis: one tablet daily Last Documented On 07/03/2022 5:27PM By JENNIFER CARMICHAEL ; [facility] Modafinil 200 MG OR TABS 07/24/2018 Provider: MET SHELDON STILL MD Diagnosis: Obstructive slee p apnea (adult) (pediatric) as directed -- 1 tab in am Last Documented On 07/03/2022 5:27PM By Yajaira Still MD ; [facility] Amphetamine-Dextroamphetamin e 30 MG OR TABS 01/01/2016 Provider: LUCY STILL MD Diagnosis: Sleep apnea, unspecified as directed Take 1/2 tablet in am and 1/2 tab at 2: 30 pm Last Documented On 07/03/2022 5:27PM By Yajaira Still MD ; [facility] Vitamin D-3 25 MCG (1000 UT) OR TABS 01/01/2015 P rovider: Diagnosis: Last Documented On 07/03/2022 5:27PM By Yajaira Still MD ; [facility] metFORMIN HCl 1000 MG TABS 07/19/2012 Provider: Diagnosis: Last Documented On 07/03/2022 5:27PM By VALENTINO GOLD ; [facility] Omeprazole 20 MG OR CPDR 03/08/2012 Provider: Diagnosis: Last Documented On 07/03/2022 5:27PM By VALENTINO GOLD ; [facility] Medications Administered Includes: Administered [...] vitals Last Documented: On 07/03/2022 6:00PM ; [facility] Results Includes: Results discussed [...] Last Documented On 06/21/2023 4:56PM ; [facility] Note: Imported from external source. Cipro Allergy 12/20/2018 Active Last Documented On 06/21/2023 4:56PM ; [facility] Note: Imported from external source. Cipro Allergy Hives / Urticaria 12/20/2018 R esolved Last Documented On 4:47PM ; [facility] Aspartame Allergy Skin Rashes / Eruption of skin 06/29/2018 Active Last Documented On 06/21/2023 4:56PM ; [facility] Note: Imported from external source. Encounters Encounter Provider Location Date Check-In Time Check-Out Time Diagnosis [Patient Encounter] 06/16/2021 12:00AM 11:59PM Insurance Includes: Active Insurance Policies Plan Name Member ID Group # Subscriber Relationship Effect refugio Dates 1 - [facility] [id number] MARYAM MUNOZ 03/10/2020 - Unknown Clinical Notes Includes: Clinical Notes from this encounter No Clinical Notes Recorded
--- OUTSIDE RECORDS SUMMARY | 2024-05-18 00:13 | XMS_ITS | Clinical Summary ---
Author Organization [facility] Address [address] [place] [address] Phone Care Team Providers Care Netbackup Admin Name Role Phone WILIAM PHILLIPS, LUCY JUNG [facility] [phone] Reason for Visit and Chief Complaint [Patient Encounter] Problems Includes: Problems addressed during this encounter and other active Problems All Visits Onset Date Resolved Date Provider Condition S tatus Narcolepsy 10/05/2014 Active Last Documented On 3 5:48PM ; [facility] Diabetes Mellitus 07/19/2012 Active Last Documented On 3 5:45PM ; [facility] 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 Last Documented On 3 5:45PM ; [facility] Major Depression, Recurrent 07/19/2012 Active Last Documented On 3 5:45PM ; [facility] Restless Legs Syndrome 07/19/2012 Ac tive Last Documented On 3 5:45PM ; [facility] Obsessive Compulsive Disorder 03/08/2012 Active Last Documented On 3 5:50PM ; [facility] Generalized Anxiety Disorder 03/08/2012 Active Last Documented On 3 5:42PM ; [facility] Gerd 03/08/2012 Active Last Documented On 3 5:42PM ; [facility] Hyperlipidemia 03/08/2012 Active Last Documented On 3 5:42PM ; [facility] Nephrolithiasis 03/08/2012 Active Last Documented On 3 5:42PM ; [facility] Plan of Treatment Future Appointments Date Time Location Provi conrad TELEHEALTH ADULT PSYCH ESTABLISHED 06/20/2024 4:40PM [facility] LUCY STILL MD Last Documented On 5:56PM ; [facility] Assessments Includes: Assessments from this encounter No Assessments Recorded Medical Equipment - Implanted Devices Includes: Current Devices No Medical Equipment Recorded Medications Includes: Medications discussed during this encounter and other current Medications Current Medications (continue as prescribed) Paxil 40 MG Oral Tablet 06/21/2023 Provider: BRIONNA STILL MD Diagnosis: Obsessive-compul sive disorder, unspecified TAKE 1 AND 1/2 TABLETS BY [facility] DAILY DIRECTED Last Documented On 06/21/2023 5:42PM By Yajaira Still MD ; [facility] busPIRone HCl 15 MG Oral Tablet 06/20/2023 Provider: LUCY STILL MD Diagnosis: Generalized anxi ety disorder One tablet twice a day Last Documented On 06/20/2023 10:49AM By Yajaira Still MD ; [facility] Pramipexole Dihydrochloride 1 MG Oral Tablet 04/20/2023 Provider: NICOLA Archibald Diagnosis: 1 and 1/2 tab in the evening Last Documented On 06/21/2023 5:48PM By Yajaira Still MD ; [facility] Fish Oil 1200 MG Oral Capsule 12/23/2022 Provider: Diagnosis: 3 caps daily Last Documented On 12/23/2022 4:48PM By ELISEO BARCENAS ; [facility] oxyBUTYnin Chloride ER 15 MG Oral Tablet Extended Release 24 Hour 11/15/2022 Provider: LAYO RUGGIERO MD Diagnosis: 1 tab daily Last Documented On 12/23/2022 4:48PM By ELISEO BARCENAS ; [facility] Januvia 100 MG OR TABS 10/02/2021 Provider: Diagnosis: 1 tab daily Last Documented On 07/03/2022 5:27PM By ELISEO BARCENAS ; [facility] FeroSul 325 (65 Fe) MG OR TABS 05/28/2021 Provider: Diagnosis: 1 tab daily Last Documented On 07/03/2022 5:27PM By ELISEO BARCENAS ; [facility] EPINEPHrine 0.3 MG/0.3ML IJ SOAJ 2020 Provider : Diagnosis: use as directed Last Documented On 07/03/2022 5:27PM By ELISEO BARCENAS ; [facility] Rosuvastatin Calcium 10 MG OR TABS 06/18/2019 Provid er: Diagnosis: one tablet daily Last Documented On 07/03/2022 5:27PM By JENNIFER CARMICHAEL ; [facility] Modafinil 200 MG OR TABS 07/24/2018 Provider: MET SHELDON STILL MD Diagnosis: Obstructive slee p apnea (adult) (pediatric) as directed -- 1 tab in am Last Documented On 07/03/2022 5:27PM By Yajaira Still MD ; [facility] Amphetamine-Dextroamphetamin e 30 MG OR TABS 01/01/2016 Provider: LUCY STILL MD Diagnosis: Sleep apnea, unspecified as directed Take 1/2 tablet in am and 1/2 tab at 2: 30 pm Last Documented On 07/03/2022 5:27PM By Yajaira Still MD ; [facility] PA Vitamin D-3 25 MCG (1000 UT) OR TABS 01/01/2015 P rovider: Diagnosis: Last Documented On 07/03/2022 5:27PM By Yajaira Still MD ; [facility] metFORMIN HCl 1000 MG TABS 07/19/2012 Provider: Diagnosis: Last Documented On 07/03/2022 5:27PM By VALENTINO GOLD ; [facility] Omeprazole 20 MG OR CPDR 03/08/2012 Provider: Diagnosis: Last Documented On 07/03/2022 5:27PM By VALENTINO GOLD ; [facility] Medications Administered Includes: Administered Medications from this [...] vitals Last Documented: On 07/03/2022 6:00PM ; [facility] Results Includes: Results discussed during [...] Active Last Documented On 06/21/2023 4:56PM ; [facility] Note: Imported from external source. Cipro Allergy 12/20/2018 Active Last Documented On 06/21/2023 4:56PM ; [facility] Note: Imported from external source. Cipro Allergy Hives / Urticaria 12/20/2018 R esolved Last Documented On 4:47PM ; [facility] Aspartame Allergy Skin Rashes / Eruption of skin 06/29/2018 Active Last Documented On 06/21/2023 4:56PM ; [facility] Note: Imported from external source. Encounters Encounter Provider Location Date Check-In Time Check-Out Time Diagnosis [Patient Encounter] 12/23/2021 12:00AM 11:59PM Insurance Includes: Active Insurance Policies Plan Name Member ID Group # Subscriber Relationship Effect refugio Dates 1 - [facility] [id number] MARYAM MUNOZ 03/10/2020 - Unknown Clinical Notes Includes: Clinical Notes from this encounter No Clinical Notes Recorded
--- OUTSIDE RECORDS SUMMARY | 2024-05-18 00:13 | XMS_ITS | Clinical Summary ---
Author Organization [facility] Address [address] [place] [address] Phone Care Team Providers Care It Corporate Recruiter Name Role Phone WILIAM PHILLIPS, LUCY JUNG [facility] [phone] Reason for Visit and Chief Complaint [Patient Encounter] Problems Includes: Problems addressed during this encounter and other active Problems All Visits Onset Date Resolved Date Provider Condition S tatus Narcolepsy 10/05/2014 Active Last Documented On 3 5:48PM ; [facility] Diabetes Mellitus 07/19/2012 Active Last Documented On 3 5:45PM ; 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 Major Depression, Recurrent 07/19/2012 Active Last Documented On 3 5:45PM ; [facility] Restless Legs Syndrome 07/19/2012 Ac tive Last Documented On 3 5:45PM ; [facility] Obsessive Compulsive Disorder 03/08/2012 Active Last Documented On 3 5:50PM ; [facility] Generalized Anxiety Disorder 03/08/2012 Active Last Documented On 3 5:42PM ; [facility] Gerd 03/08/2012 Active Last Documented On 3 5:42PM ; [facility] Hyperlipidemia 03/08/2012 Active Last Documented On 3 5:42PM ; [facility] Nephrolithiasis 03/08/2012 Active Last Documented On 3 5:42PM ; [facility] Plan of Treatment Future Appointments Date Time Location Provi conrad TELEHEALTH ADULT PSYCH ESTABLISHED 06/20/2024 4:40PM [facility] LUCY STILL MD Last Documented On 5:56PM ; [facility] Assessments Includes: Assessments from this encounter No Assessments Recorded Medical Equipment - Implanted Devices Includes: Current Devices No Medical Equipment Recorded Medications Includes: Medications discussed during this encounter and other current Medications Discontinued / Stopped on this date on 06/06/2020 Myrbetriq 25 MG OR TB24 Provider: Diagnosis: Last Documented On 07/03/2022 5:27PM By ELISEO BARCENAS ; [facility] Current Medications (continue as prescribed) Paxil 40 MG Oral Tablet 06/21/2023 Provider: BRIONNA STILL MD Diagnosis: Obsessive-compul sive disorder, unspecified TAKE 1 AND 1/2 TABLETS BY [facility] DAILY DIRECTED Last Documented On 06/21/2023 5:42PM By Yajaira Still MD ; [facility] busPIRone HCl 15 MG Oral Tablet 06/20/2023 Provider: LUCY STILL MD Diagnosis: Generalized anxi ety disorder One tablet twice a day Last Documented On 06/20/2023 10:49AM By Yajaira Still MD ; [facility] Pramipexole Dihydrochloride 1 MG Oral Tablet 04/20/2023 Provider: NICOLA Archibald Diagnosis: 1 and 1/2 tab in the evening Last Documented On 06/21/2023 5:48PM By Yajaira Still MD ; [facility] Fish Oil 1200 MG Oral Capsule 12/23/2022 Provider: Diagnosis: 3 caps daily Last Documented On 12/23/2022 4:48PM By ELISEO BARCENAS ; [facility] oxyBUTYnin Chloride ER 15 MG Oral Tablet Extended Release 24 Hour 11/15/2022 Provider: LAYO RUGGIERO MD Diagnosis: 1 tab daily Last Documented On 12/23/2022 4:48PM By ELISEO BARCENAS ; [facility] Januvia 100 MG OR TABS 10/02/2021 Provider: Diagnosis: 1 tab daily Last Documented On 07/03/2022 5:27PM By ELISEO BARCENAS ; [facility] FeroSul 325 (65 Fe) MG OR TABS 05/28/2021 Provider: Diagnosis: 1 tab daily Last Documented On 07/03/2022 5:27PM By ELISEO BARCENAS ; [facility] EPINEPHrine 0.3 MG/0.3ML IJ SOAJ 2020 Provider : Diagnosis: use as directed Last Documented On 07/03/2022 5:27PM By ELISEO BARCENAS ; [facility] Rosuvastatin Calcium 10 MG OR TABS 06/18/2019 Provid er: Diagnosis: one tablet daily Last Documented On 07/03/2022 5:27PM By JENNIFER CARMICHAEL ; [facility] Modafinil 200 MG OR TABS 07/24/2018 Provider: MET SHELDON STILL MD Diagnosis: Obstructive slee p apnea (adult) (pediatric) as directed -- 1 tab in am Last Documented On 07/03/2022 5:27PM By Yajaira Still MD ; [facility] Amphetamine-Dextroamphetamin e 30 MG OR TABS 01/01/2016 Provider: LUCY STILL MD Diagnosis: Sleep apnea, unspecified as directed Take 1/2 tablet in am and 1/2 tab at 2: 30 pm Last Documented On 07/03/2022 5:27PM By Yajaira Still MD ; [facility] PA Vitamin D-3 25 MCG (1000 UT) OR TABS 01/01/2015 P rovider: Diagnosis: Last Documented On 07/03/2022 5:27PM By Yajaira Still MD ; [facility] metFORMIN HCl 1000 MG TABS 07/19/2012 Provider: Diagnosis: Last Documented On 07/03/2022 5:27PM By VALENTINO GOLD ; [facility] Omeprazole 20 MG OR CPDR 03/08/2012 Provider: Diagnosis: Last Documented On 07/03/2022 5:27PM By VALENTINO GOLD ; [facility] Medications Administered Includes: Administered Medications from this [...] vitals Last Documented: On 07/03/2022 6:00PM ; [facility] Results Includes: Results discussed [...] Active Last Documented On 06/21/2023 4:56PM ; [facility] Note: Imported from external source. Cipro Allergy 12/20/2018 Active Last Documented On 06/21/2023 4:56PM ; [facility] Note: Imported from external source. Cipro Allergy Hives / Urticaria 12/20/2018 R esolved Last Documented On 4:47PM ; [facility] Aspartame Allergy Skin Rashes / Eruption of skin 06/29/2018 Active Last Documented On 06/21/2023 4:56PM ; [facility] Note: Imported from external source. Encounters Encounter Provider Location Date Check-In Time Check-Out Time Diagnosis [Patient Encounter] 06/23/2022 12:00AM 11:59PM Insurance Includes: Active Insurance Policies Plan Name Member ID Group # Subscriber Relationship Effect refugio Dates 1 - [facility] [id number] MARYAM MUNOZ 03/10/2020 - Unknown Clinical Notes Includes: Clinical Notes from this encounter No Clinical Notes Recorded
--- OUTSIDE RECORDS SUMMARY | 2024-05-18 00:13 | XMS_ITS | Clinical Summary ---
Author Organization [facility] Address [address] [place] [id number] Care Team Providers Care Metal Mockup Maker Name Role Phone Giorgio Lee MD Primary Care Provider [phone] Allergies Active Allergy Reactions Criticality Noted Date [...] Comments Blood Pressure 121/78 02/22/2021 12:30 AM CUSTOMER SERVICE AGENT Pulse 77 02/22/2021 1:00 AM CUSTOMER SERVICE AGENT Temperature 36.9 C (98.4 F) 02/21/2021 9:27 PM CUSTOMER SERVICE AGENT Respiratory Rate 15 02/22/2021 1:00 AM CUSTOMER SERVICE AGENT Oxygen Saturation 99% 02/22/2021 1:00 AM CUSTOMER SERVICE AGENT Inhaled Oxygen Concentration - - Weight - - Height 172.7 cm (5' 8 ) 02/21/2021 9:27 PM CUSTOMER SERVICE AGENT Body Mass Index - - Plan of [...] patient's age to complete this topic Insurance [facility] Care Teams Metal Mockup Maker Relationship Specialty Start Date End Date Giorgio Lee MD PCP - General FAMILY PRACTICE 12/18/20
--- OUTSIDE RECORDS SUMMARY | 2024-05-18 00:13 | XMS_ITS | Referral Summary ---
Author Organization [facility] Address [address] [place] [address] Care Team Providers Care Buoy Tender Name Role Phone Giorgio Lee MD Primary Care Provider [phone] Allergies Active Allergy Reactions Criticality Noted Date [...] a meal 0 0 6 Active omega 5-ykn-vup-fish oil (FISH OIL) 360-1,200 mg capsule,delayed release(DR/EC) [...] (06/13/2018): Added automatically from request for surgery [id number] Overweight (BMI 25.0-29.9) 10/22/2016 Hay fever 01/26/2016 [...] on file Legal Sex Male 11:57 PM VIDEO LIBRARY ASSISTANT Gender Identity Male 01/13/2019 7:57 PM VIDEO LIBRARY ASSISTANT Sexual Orientation Straight 01/13/2019 7: 57 PM VIDEO LIBRARY ASSISTANT Last Filed Vital Signs Vital Sign Reading [...] LIPID PANEL Routine 04/07/2013 8:4 5 PM VIDEO LIBRARY ASSISTANT from Last 3 Months or Most Recently Relevant to Health Maintenance Results * COLONOSCOPY (07/28/2018 9:02 AM CDT) Anatomical Region Laterality Modality Other Narrative Procedure Note Ramo Meza MD - 07/28/2018 9:02 AM CDT [facility] Patient Name: Chuy Mitchell Procedure Date: 07/28/2018 9:02 AM Date of : 1965 Admit Type: Outpatient Age: 52 Gender: Male Attending MD: Ramo Meza M.D. Room: [facility] ENDOSCOPY ROOM 1 Note Status: [...] passed under direct vision.The Pediatric Colonoscope PCF-H190L [id number] was introduced through the anus and advanced [...] 9:02 AM Procedure Code(s): --- Professional --- 17463, Colonoscopy, flexible; with biopsy, single or multiple Diagnosis Code(s): --- Professional --- Z80.0, Family history of malignant neoplasm of digestive organs Z86.010, Personal history of colonic polyps K64.8, Other hemorrhoids D12.5, Benign neoplasm of sigmoid colon K57.30, Diverticulosis of large intestine without perforation orabscess without bleeding CPT copyright 2017 [employer]. All rights reserved. The codes documented in this report are preliminary and upon internal medicine doctor reviewmay be revised to meet current compliance requirements. Recognized by the [employer] for promoting quality in endoscopy Ramo Meza MD ENDOSCOPY PROCEDURES Final Result * eGFR (12/12/2016 11:06 AM CDT) eGFR >60 mL/min/1.7 3 m2 MARCIN LOWE (CORAL) Comment: Interpretive Data Reference Interval Normal >/= 90 mL/min/1.73m2 Mildly decreased* 60 - 89 mL/min/1.73m2 Mildly to moderately decreased 45 - 59 mL/min/1.73m2 Moderately to severely decreased 30 - 44 mL/min/1.73m2 Severely decreased 15 - 29 mL/min/1.73m2 Kidney Failure < 15 mL/min/1.73m2 *Relative to young adult level If -Italian multiply value by 1.16. Estimated glomerular filtration [...] BLOOD ORDERABLES Final Resul t MARCIN LOWE (CORAL) 1 [facility] Department of Laboratories [place], [place] [id number] * (ABNORMAL) Serum lipid panel (04/07/2013 8:45 PM VIDEO LIBRARY ASSISTANT) LDL 54 0 - 129 mg/dl HISTORICAL [...] revised on 2007. Serum 04/07/2013 8:45 PM VIDEO LIBRARY ASSISTANT Edgar Pratt MD LAB BLOOD ORDERABLES Final Resul t HISTORICAL RESULTS from Last 3 Months or Most Recently Relevant to Health Maintenance Insurance [facility]O Address: [address] [address] [facility] [employer] [facility] Address: [address] [address] [facility] H[employer]/PPO Address: [address] [address] Care Teams Buoy Tender Relationship Specialty Start Date End Date Giorgio Lee MD PCP - General 06/04/16
--- OUTSIDE RECORDS SUMMARY | 2024-05-18 00:14 | XMS_ITS ---
Care Plan - [facility] Medical [facility] S Created on: May 18, 2024 CHUY MUNOZ : 1965 Sex: Male Author Organization [facility] Medical [facility] Address [address] [place] [address] Phone Care Team Providers Care Box Storage Worker Name Role Phone LUCY SWAIN MD Unavailable [phone]
--- OUTSIDE RECORDS SUMMARY | 2024-05-18 00:14 | XMS_ITS ---
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 Nahed STILL MD Active Last Documented On 3 5:05PM ; [facility] Major Depression, Recurrent 07/19/2012 LUCY STILL MD Active Last Documented On 3 5:16PM ; [facility] Restless Legs Syndrome 07/19/2012 LUCY ALVAREZ MD Active Last Documented On 3 4:33PM ; [facility] Obsessive Compulsive Disorder 03/08/2012 BRADLEY STILL MD Active Last Documented On 0 10:00AM ; [facility] Generalized Anxiety Disorder 03/08/2012 LUCY STILL MD Active Last Documented On 3 2:58PM ; [facility] Gerd 03/08/2012 LUCY STILL MD Ac tive Last Documented On 3 2:55PM ; [facility] Hyperlipidemia 03/08/2012 LUCY Archibald Active Last Documented On 3 2:56PM ; [facility] Obsessive Compulsive Disorder 03/08/2012 BRADLEY STILL MD Inactive Last Documented On 7 9:03PM ; [facility] Nephrolithiasis 03/08/2012 LUCY STILL MD Active Last Documented On 3 2:58PM ; [facility] Plan of Treatment Instructions to patient Lose weight Last Documented On 1 4:49PM ; [facility] Lose weight Last Documented On 1 4:56PM ; [facility] Education and Decision Aids were provided during visit for: Patient education about medi cation ---Education was given on medication(s) and diagnosis. I reviewed the risks, benefits and side effects of patient's medications Last Documented On 3 4:33PM ; [facility] Patient education about medi cation ---Education was given on medication(s) and diagnosis. I reviewed the risks, benefits and side effects of patient's medications. Pt reported no side effects with meds Last Documented On 2 7:18PM ; [facility] Patient education about medi cation --- I educated patient on medication(s) and diagnosis. I reviewed the risks, benefits and side effects of patient's medications Last Documented On 2 4:43PM ; [facility] Discussed calming techniques such as breathing exercises and other relaxation techniques Last Documented On 2 4:43PM ; [facility] Counseling for nutrition/rodrigo ght management provided Last Documented On 2 4:55PM ; [facility] Patient education about medi cation --- I educated patient on medication(s) and diagnosis. I reviewed the risks, benefits and side effects of patient's medications Last Documented On 1 4:34PM ; [facility] Discussed calming techniques such as breathing exercises and other relaxation techniques Last Documented On 1 4:34PM ; [facility] Counseling for nutrition/rodrigo ght management provided Last Documented On 1 4:49PM ; [facility] Patient education about medi cation --- I educated patient on medication(s) and diagnosis. I reviewed the risks, benefits and side effects of patient's medications Last Documented On 1 4:39PM ; [facility] Discussed calming techniques such as breathing exercises and other relaxation techniques Last Documented On 1 4:39PM ; [facility] Counseling for nutrition/rodrigo ght management provided Last Documented On 1 4:56PM ; [facility] Patient education about medi cation --- I educated patient on medication(s) and diagnosis. I reviewed the risks, benefits and side effects of patient's medications Last Documented On 0 4:36PM ; [facility] Discussed calming techniques such as breathing exercises and other relaxation techniques Last Documented On 0 4:36PM ; [facility] Counseling for nutrition/rodrigo ght management provided Last Documented On 0 4:51PM ; [facility] Patient education about a pr oper diet Last Documented On 0 8:27AM ; [facility] Patient education about medi cation --- I educated patient on medication(s) and diagnosis. I reviewed the risks, benefits and side effects of patient's medications Last Documented On 0 4:39PM ; [facility] Discussed calming techniques such as breathing exercises and other relaxation techniques Last Documented On 0 4:39PM ; [facility] Patient education about a pr oper diet Last Documented On 9 4:47PM ; [facility] Patient education about medi cation --- I educated patient on medication(s) and diagnosis. I reviewed the risks, benefits and side effects of patient's medications Last Documented On 9 4:34PM ; [facility] Discussed calming techniques such as breathing exercises and other relaxation techniques Last Documented On 9 4:34PM ; [facility] Patient education about a pr oper diet Last Documented On 9 4:52PM ; [facility] Patient education about medi cation --- I educated patient on medication(s) and diagnosis. I reviewed the risks, benefits and side effects of patient's medications Last Documented On 9 4:31PM ; [facility] Discussed calming techniques such as breathing exercises and other relaxation techniques Last Documented On 9 4:31PM ; [facility] Counseling for nutrition/rodrigo ght management provided Last Documented On 9 4:52PM ; [facility] Patient education about a pr oper diet Last Documented On 8 4:33PM ; [facility] Patient education about medi cation --- I educated patient on medication(s) and diagnosis. I reviewed the risks, benefits and side effects of patient's medications Last Documented On 8 4:32PM ; [facility] Counseling for nutrition/rodrigo ght management provided Last Documented On 8 2:20PM ; [facility] Discussed good sleep hygiene habits --was encouraged not to stay up late at night Last Documented On 8 2:20PM ; [facility] Patient education about medi cation --- I educated patient on medication(s) and diagnosis. I reviewed the risks, benefits and side effects of patient's medications Last Documented On 8 4:38PM ; [facility] Discussed calming techniques such as breathing exercises and other relaxation techniques Last Documented On 8 4:38PM ; [facility] Counseling for nutrition/rodrigo ght management provided Last Documented On 8 7:11AM ; [facility] Patient education about medi cation --- I educated patient on medication(s) and diagnosis. I reviewed the risks, benefits and side effects of patient's medications Last Documented On 7 4:32PM ; [facility] Discussed calming techniques such as breathing exercises and other relaxation techniques Last Documented On 7 4:32PM ; [facility] Counseling for nutrition/rodrigo ght management provided Last Documented On 7 8:56AM ; [facility] Patient education about medi cation --- I educated patient on medication(s) and diagnosis. I reviewed the risks, benefits and side effects of patient's medications Last Documented On 7 4:34PM ; [facility] Discussed calming techniques such as breathing exercises/meditation and other relaxation techniques Last Documented On 7 4:34PM ; [facility] Counseling for nutrition/rodrigo ght management provided Last Documented On 7 12:10PM ; [facility] Patient education about medi cation --- I educated patient on medication(s) and diagnosis. I reviewed the risks, benefits and side effects of patient's medications Last Documented On 6 4:32PM ; [facility] Discussed calming techniques such as breathing exercises/meditation and other relaxation techniques Last Documented On 6 4:32PM ; [facility] Counseling for nutrition/rodrigo ght management provided Last Documented On 6 9:43AM ; [facility] Patient education about medi cation --- I educated patient on medication(s) and diagnosis. I reviewed the risks, benefits and side effects of patient's medications Last Documented On 6 4:34PM ; [facility] Discussed calming techniques such as breathing exercises/meditation and other relaxation techniques Last Documented On 6 4:34PM ; [facility] Counseling for nutrition/rodrigo ght management provided Last Documented On 6 5:44PM ; [facility] Patient education about medi cation --- I educated patient on medication(s) and diagnosis. I reviewed the risks, benefits and side effects of patient's medications Last Documented On 5 2:03PM ; [facility] Discussed calming techniques such as breathing exercises/meditation and other relaxation techniques Last Documented On 5 2:03PM ; [facility] Counseling for nutrition/rodrigo ght management provided Last Documented On 5 6:24AM ; [facility] Discussed good sleep hygiene habits Last Documented On 5 6:24AM ; [facility] Patient education about medi cation --- I educated patient on medication(s) and diagnosis. I reviewed the risks, benefits and side effects of patient's medications Last Documented On 5 6:30PM ; [facility] Discussed calming techniques such as breathing exercises/meditation and other relaxation techniques Last Documented On 5 4:34PM ; [facility] Counseling for nutrition/rodrigo ght management provided Last Documented On 5 5:33PM ; [facility] Patient education about medi cation --- I educated patient on medication(s) and diagnosis. I reviewed the risks, benefits and side effects of patient's medications Last Documented On 4 6:15PM ; [facility] Discussed calming techniques such as breathing exercises/meditation and other relaxation techniques Last Documented On 4 4:38PM ; [facility] Counseling for nutrition/rodrigo ght management provided Last Documented On 4 6:15PM ; [facility] Patient education about medi cation --- I educated patient on medication(s) and diagnosis. I reviewed the risks, benefits and side effects of patient's medications Last Documented On 4 11:38PM ; [facility] Discussed calming techniques such as breathing exercises/meditation and other relaxation techniques Last Documented On 4 4:36PM ; [facility] Counseling for nutrition/rodrigo ght management provided Last Documented On 4 11:38PM ; [facility] Patient education about medi cation --- I educated patient on medication(s) and diagnosis Last Documented On 3 7:02PM ; [facility] Discussed calming techniques such as breathing exercises/meditation and other relaxation techniques Last Documented On 3 4:30PM ; [facility] Discussed calming techniques such as breathing exercises/meditation and other relaxation techniques Last Documented On 3 4:32PM ; [facility] Assessments Includes: Assessments for all patient encounters Findings Encounter Date Generalized anxiety disorder TELEHEALTH with MET SHELDON STILL MD 06/23/2022 Last Documented On 3 8:00AM ; [facility] Major depression, recurrent TELEHEALTH with BRIONNA STILL MD 06/23/2022 Last Documented On 3 8:00AM ; [facility] Obsessive compulsive disorder TELEHEALTH with ME EMANI STILL MD 06/23/2022 Last Documented On 3 8:00AM ; [facility] Restless legs syndrome TELEHEALTH with LUCY STILL MD 06/23/2022 Last Documented On 3 8:00AM ; [facility] Generalized anxiety disorder TELEHEALTH with MET SHELDON STILL MD 12/23/2021 Last Documented On 2 7:20PM ; [facility] Major depression, recurrent TELEHEALTH with BRIONNA STILL MD 12/23/2021 Last Documented On 2 7:20PM ; [facility] Obsessive compulsive disorder TELEHEALTH with ME EMANI STILL MD 12/23/2021 Last Documented On 2 7:20PM ; [facility] Restless legs syndrome TELEHEALTH with LUCY STILL MD 12/23/2021 Last Documented On 2 7:20PM ; [facility] Generalized anxiety disorder TELEHEALTH with MET SHELDON STILL MD 06/16/2021 Last Documented On 2 10:34AM ; [facility] Major depression, recurrent TELEHEALTH with BRIONNA STILL MD 06/16/2021 Last Documented On 2 10:34AM ; [facility] Obsessive compulsive disorder TELEHEALTH with ME EMANI STILL MD 06/16/2021 Last Documented On 2 10:34AM ; [facility] Restless legs syndrome TELEHEALTH with LUCY STILL MD 06/16/2021 Last Documented On 2 10:34AM ; [facility] Generalized anxiety disorder * PHONE CALL with Nahed STILL MD 03/17/2021 Last Documented On 2 2:57PM ; [facility] Major depression, recurrent * PHONE CALL with ME EMANI STILL MD 03/17/2021 Last Documented On 2 2:57PM ; [facility] Obsessive compulsive disorder * PHONE CALL with LUCY STILL MD 03/17/2021 Last Documented On 2 2:57PM ; [facility] Restless legs syndrome * PHONE CALL with LUCY STILL MD 03/17/2021 Last Documented On 2 2:57PM ; [facility] Generalized anxiety disorder TELEHEALTH with MET SHELDON STILL MD 12/18/2020 Last Documented On 1 8:13AM ; [facility] Major depression, recurrent TELEHEALTH with BRIONNA STILL MD 12/18/2020 Last Documented On 1 8:13AM ; [facility] Obsessive compulsive disorder TELEHEALTH with ME EMANI STILL MD 12/18/2020 Last Documented On 1 8:13AM ; [facility] Restless legs syndrome TELEHEALTH with LUCY STILL MD 12/18/2020 Last Documented On 1 8:13AM ; [facility] Generalized anxiety disorder TELEHEALTH with MET SHELDON STILL MD 06/19/2020 Last Documented On 1 9:21AM ; [facility] Major depression, recurrent TELEHEALTH with BRIONNA STILL MD 06/19/2020 Last Documented On 1 9:21AM ; [facility] Obsessive compulsive disorder TELEHEALTH with ME EMANI STILL MD 06/19/2020 Last Documented On 1 9:21AM ; [facility] Restless legs syndrome TELEHEALTH with LUCY STILL MD 06/19/2020 Last Documented On 1 9:21AM ; [facility] Generalized anxiety disorder TELEHEALTH with MET SHELDON STILL MD 12/20/2019 Last Documented On 1 11:49PM ; [facility] Major depression, recurrent TELEHEALTH with BRIONNA STILL MD 12/20/2019 Last Documented On 1 11:49PM ; [facility] Obsessive compulsive disorder TELEHEALTH with ME EMANI STILL MD 12/20/2019 Last Documented On 1 11:49PM ; [facility] Restless legs syndrome TELEHEALTH with LUCY STILL MD 12/20/2019 Last Documented On 1 11:49PM ; [facility] Generalized anxiety disorder TELEHEALTH with MET SHELDON STILL MD 06/20/2019 Last Documented On 0 8:36AM ; [facility] Major depression, recurrent TELEHEALTH with BRIONNA STILL MD 06/20/2019 Last Documented On 0 8:36AM ; [facility] Obsessive compulsive disorder TELEHEALTH with ME EMANI STILL MD 06/20/2019 Last Documented On 0 8:36AM ; [facility] Restless legs syndrome TELEHEALTH with LUCY STILL MD 06/20/2019 Last Documented On 0 8:36AM ; [facility] Generalized anxiety disorder GENERAL OFF ICE VISIT with LUCY STILL MD 12/20/2018 Last Documented On 9 6:10PM ; [facility] Major depression, recurrent GENERAL OFFI CE VISIT with LUCY STILL MD 12/20/2018 Last Documented On 9 6:10PM ; [facility] Obsessive compulsive disorder GENERAL OF FICE VISIT with LUCY STILL MD 12/20/2018 Last Documented On 9 6:10PM ; [facility] Obstructive sleep apnea GENERAL OFFICE VISIT wit h LUCY STILL MD 12/20/2018 Last Documented On 9 6:10PM ; [facility] Generalized anxiety disorder GENERAL OFF ICE VISIT with LUCY STILL MD 06/29/2018 Last Documented On 9 7:45AM ; [facility] Major depression, recurrent GENERAL OFFI CE VISIT with LUCY STILL MD 06/29/2018 Last Documented On 9 7:45AM ; [facility] Obsessive compulsive disorder GENERAL OF FICE VISIT with LUCY STILL MD 06/29/2018 Last Documented On 9 7:45AM ; [facility] Obstructive sleep apnea GENERAL OFFICE VISIT wit h LUCY STILL MD 06/29/2018 Last Documented On 9 7:45AM ; [facility] Generalized anxiety disorder GENERAL OFF ICE VISIT with LUCY STILL MD 12/29/2017 Last Documented On 8 2:27PM ; [facility] Major depression, recurrent GENERAL OFFI CE VISIT with LUCY STILL MD 12/29/2017 Last Documented On 8 2:27PM ; [facility] Obsessive compulsive disorder GENERAL OF FICE VISIT with LUCY STILL MD 12/29/2017 Last Documented On 8 2:27PM ; [facility] Obstructive sleep apnea GENERAL OFFICE VISIT wit h LUCY STILL MD 12/29/2017 Last Documented On 8 2:27PM ; [facility] Generalized anxiety disorder GENERAL OFF ICE VISIT with LUCY STILL MD 06/29/2017 Last Documented On 8 7:12AM ; [facility] Major depression, recurrent GENERAL OFFI CE VISIT with LUCY STILL MD 06/29/2017 Last Documented On 8 7:12AM ; [facility] Obsessive compulsive disorder GENERAL OF FICE VISIT with LUCY STILL MD 06/29/2017 Last Documented On 8 7:12AM ; [facility] Obstructive sleep apnea GENERAL OFFICE VISIT wit LUCY STILL MD 06/29/2017 Last Documented On 8 7:12AM ; [facility] Major depression, recurrent * PHONE CALL with ME EMANI STILL MD 04/26/2017 Last Documented On 8 6:21PM ; [facility] Generalized anxiety disorder GENERAL OFF ICE VISIT with LUCY STILL MD 12/30/2016 Last Documented On 7 9:36AM ; [facility] Major depression, recurrent GENERAL OFFI CE VISIT with LUCY STILL MD 12/30/2016 Last Documented On 7 9:36AM ; [facility] Obsessive compulsive disorder GENERAL OF FICE VISIT with LUCY STILL MD 12/30/2016 Last Documented On 7 9:36AM ; [facility] Obstructive sleep apnea GENERAL OFFICE VISIT wit h LUCY STILL MD 12/30/2016 Last Documented On 7 9:36AM ; [facility] Generalized anxiety disorder GENERAL OFF ICE VISIT with LUCY STILL MD 06/29/2016 Last Documented On 7 12:21PM ; [facility] Major depression, recurrent GENERAL OFFI CE VISIT with LUCY STILL MD 06/29/2016 Last Documented On 7 12:21PM ; [facility] Obsessive compulsive disorder GENERAL OF FICE VISIT with LUCY STILL MD 06/29/2016 Last Documented On 7 12:21PM ; [facility] Obstructive sleep apnea GENERAL OFFICE VISIT wit h LUCY STILL MD 06/29/2016 Last Documented On 7 12:21PM ; [facility] Generalized anxiety disorder GENERAL OFF ICE VISIT with LUCY STILL MD 01/01/2016 Last Documented On 6 9:45AM ; [facility] Major depression, recurrent GENERAL OFFI CE VISIT with LUCY STILL MD 01/01/2016 Last Documented On 6 9:45AM ; [facility] Obsessive compulsive disorder GENERAL OF FICE VISIT with LUCY STILL MD 01/01/2016 Last Documented On 6 9:45AM ; [facility] Obstructive sleep apnea GENERAL OFFICE VISIT wit h LUCY STILL MD 01/01/2016 Last Documented On 6 9:45AM ; [facility] Generalized anxiety disorder GENERAL OFF ICE VISIT with LUCY STILL MD 07/01/2015 Last Documented On 6 7:59PM ; [facility] Major depression, recurrent GENERAL OFFI CE VISIT with LUCY STILL MD 07/01/2015 Last Documented On 6 7:59PM ; [facility] Obsessive compulsive disorder GENERAL OF FICE VISIT with LUCY STILL MD 07/01/2015 Last Documented On 6 7:59PM ; [facility] Obstruct[facility] sleep apnea GENERAL OFFICE VISIT wit h LUCY STILL MD 07/01/2015 Last Documented On 6 7:59PM ; [facility] Obstructive sleep apnea SECURE MESSAGE with ND EMANI STILL MD 03/31/2015 Last Documented On 6 1:09PM ; [facility] Generalized anxiety disorder GENERAL OFF ICE VISIT with LUCY STILL MD 01/01/2015 Last Documented On 5 6:30AM ; [facility] Major depression, recurrent GENERAL OFFI CE VISIT with LUCY STILL MD 01/01/2015 Last Documented On 5 6:30AM ; [facility] Obsessive compulsive disorder GENERAL OF FICE VISIT with LUCY STILL MD 01/01/2015 Last Documented On 5 6:30AM ; [facility] Obstructive sleep apnea GENERAL OFFICE VISIT wit h LUCY STILL MD 01/01/2015 Last Documented On 5 6:30AM ; [facility] Generalized anxiety disorder GENERAL OFF ICE VISIT with LUCY STILL MD 07/18/2014 Last Documented On 5 6:36PM ; [facility] Major depression, recurrent GENERAL OFFI CE VISIT with LUCY STILL MD 07/18/2014 Last Documented On 5 6:36PM ; [facility] Obsessive compulsive disorder GENERAL OF FICE VISIT with LUCY STILL MD 07/18/2014 Last Documented On 5 6:36PM ; [facility] Obstructive sleep apnea GENERAL OFFICE VISIT wit h LUCY STILL MD 07/18/2014 Last Documented On 5 6:36PM ; [facility] Generalized anxiety disorder GENERAL OFF ICE VISIT with LUCY STILL MD 01/18/2014 Last Documented On 4 6:16PM ; [facility] Major depression, recurrent GENERAL OFFI CE VISIT with LUCY STILL MD 01/18/2014 Last Documented On 4 6:16PM ; [facility] Obsessive compulsive disorder GENERAL OF FICE VISIT with LUCY STILL MD 01/18/2014 Last Documented On 4 6:16PM ; [facility] Obstructive sleep apnea GENERAL OFFICE VISIT wit h LUCY STILL MD 01/18/2014 Last Documented On 4 6:16PM ; [facility] Generalized anxiety disorder GENERAL OFF ICE VISIT with LUCY STILL MD 07/17/2013 Last Documented On 4 11:39PM ; [facility] Major depression, recurrent GENERAL OFFI CE VISIT with LUCY STILL MD 07/17/2013 Last Documented On 4 11:39PM ; [facility] Obsessive compulsive disorder GENERAL OF FICE VISIT with LUCY STILL MD 07/17/2013 Last Documented On 4 11:39PM ; [facility] Obstructive sleep apnea GENERAL OFFICE VISIT wit h LUCY STILL MD 07/17/2013 Last Documented On 4 11:39PM ; [facility] Generalized anxiety disorder GENERAL OFF ICE VISIT with LUCY STILL MD 01/17/2013 Last Documented On 3 7:21PM ; [facility] Major depression, recurrent GENERAL OFFI CE VISIT with LUCY STILL MD 01/17/2013 Last Documented On 3 7:21PM ; [facility] Obsessive compulsive disorder GENERAL OF FICE VISIT with LUCY STILL MD 01/17/2013 Last Documented On 3 7:21PM ; [facility] Obstructive sleep apnea GENERAL OFFICE VISIT wit h LUCY STILL MD 01/17/2013 Last Documented On 3 7:21PM ; [facility] Restless legs syndrome GENERAL OFFICE VISIT with LUCY SITLL MD 01/17/2013 Last Documented On 3 7:21PM ; [facility] Generalized anxiety disorder GENERAL OFF ICE VISIT with LUCY STILL MD 07/19/2012 Last Documented On 3 5:41PM ; [facility] Major depression, recurrent GENERAL OFFI CE VISIT with LUCY STILL MD 07/19/2012 Last Documented On 3 5:41PM ; [facility] Obsessive compulsive disorder GENERAL OF FICE VISIT with LUCY STILL MD 07/19/2012 Last Documented On 3 5:41PM ; [facility] Obstructive sleep apnea GENERAL OFFICE VISIT wit h LUCY STILL MD 07/19/2012 Last Documented On 3 5:41PM ; [facility] Restless legs syndrome GENERAL OFFICE VISIT with LUCY STILL MD 07/19/2012 Last Documented On 3 5:41PM ; [facility] Instructions Includes: Instructions for all patient encounters Instructions to patient Lose weight Last Documented On 1 4:49PM ; [facility] Lose weight Last Documented On 1 4:56PM ; [facility] Education and Decision Aids were provided during visit for: Patient education about medi cation ---Education was given on medication(s) and diagnosis. I reviewed the risks, benefits and side effects of patient's medications Last Documented On 3 4:33PM ; [facility] Patient education about medi cation ---Education was given on medication(s) and diagnosis. I reviewed the risks, benefits and side effects of patient's medications. Pt reported no side effects with meds Last Documented On 2 7:18PM ; [facility] Patient education about medi cation --- I educated patient on medication(s) and diagnosis. I reviewed the risks, benefits and side effects of patient's medications Last Documented On 2 4:43PM ; [facility] Discussed calming techniques such as breathing exercises and other relaxation techniques Last Documented On 2 4:43PM ; [facility] Counseling for nutrition/rodrigo ght management provided Last Documented On 2 4:55PM ; [facility] Patient education about medi cation --- I educated patient on medication(s) and diagnosis. I reviewed the risks, benefits and side effects of patient's medications Last Documented On 1 4:34PM ; [facility] Discussed calming techniques such as breathing exercises and other relaxation techniques Last Documented On 1 4:34PM ; [facility] Counseling for nutrition/rodrigo ght management provided Last Documented On 1 4:49PM ; [facility] Patient education about medi cation --- I educated patient on medication(s) and diagnosis. I reviewed the risks, benefits and side effects of patient's medications Last Documented On 1 4:39PM ; [facility] Discussed calming techniques such as breathing exercises and other relaxation techniques Last Documented On 1 4:39PM ; [facility] Counseling for nutrition/rodrigo ght management provided Last Documented On 1 4:56PM ; [facility] Patient education about medi cation --- I educated patient on medication(s) and diagnosis. I reviewed the risks, benefits and side effects of patient's medications Last Documented On 0 4:36PM ; [facility] Discussed calming techniques such as breathing exercises and other relaxation techniques Last Documented On 0 4:36PM ; [facility] Counseling for nutrition/rodrigo ght management provided Last Documented On 0 4:51PM ; [facility] Patient education about a pr oper diet Last Documented On 0 8:27AM ; [facility] Patient education about medi cation --- I educated patient on medication(s) and diagnosis. I reviewed the risks, benefits and side effects of patient's medications Last Documented On 0 4:39PM ; [facility] Discussed calming techniques such as breathing exercises and other relaxation techniques Last Documented On 0 4:39PM ; [facility] Patient education about a pr oper diet Last Documented On 9 4:47PM ; [facility] Patient education about medi cation --- I educated patient on medication(s) and diagnosis. I reviewed the risks, benefits and side effects of patient's medications Last Documented On 9 4:34PM ; [facility] Discussed calming techniques such as breathing exercises and other relaxation techniques Last Documented On 9 4:34PM ; [facility] Patient education about a pr oper diet Last Documented On 9 4:52PM ; [facility] Patient education about medi cation --- I educated patient on medication(s) and diagnosis. I reviewed the risks, benefits and side effects of patient's medications Last Documented On 9 4:31PM ; [facility] Discussed calming techniques such as breathing exercises and other relaxation techniques Last Documented On 9 4:31PM ; [facility] Counseling for nutrition/rodrigo ght management provided Last Documented On 9 4:52PM ; [facility] Patient education about a pr oper diet Last Documented On 8 4:33PM ; [facility] Patient education about medi cation --- I educated patient on medication(s) and diagnosis. I reviewed the risks, benefits and side effects of patient's medications Last Documented On 8 4:32PM ; [facility] Counseling for nutrition/rodrigo ght management provided Last Documented On 8 2:20PM ; [facility] Discussed good sleep hygiene habits --was encouraged not to stay up late at night Last Documented On 8 2:20PM ; [facility] Patient education about medi cation --- I educated patient on medication(s) and diagnosis. I reviewed the risks, benefits and side effects of patient's medications Last Documented On 8 4:38PM ; [facility] Discussed calming techniques such as breathing exercises and other relaxation techniques Last Documented On 8 4:38PM ; [facility] Counseling for nutrition/rodrigo ght management provided Last Documented On 8 7:11AM ; [facility] Patient education about medi cation --- I educated patient on medication(s) and diagnosis. I reviewed the risks, benefits and side effects of patient's medications Last Documented On 7 4:32PM ; [facility] Discussed calming techniques such as breathing exercises and other relaxation techniques Last Documented On 7 4:32PM ; [facility] Counseling for nutrition/rodrigo ght management provided Last Documented On 7 8:56AM ; [facility] Patient education about medi cation --- I educated patient on medication(s) and diagnosis. I reviewed the risks, benefits and side effects of patient's medications Last Documented On 7 4:34PM ; [facility] Discussed calming techniques such as breathing exercises/meditation and other relaxation techniques Last Documented On 7 4:34PM ; [facility] Counseling for nutrition/rodrigo ght management provided Last Documented On 7 12:10PM ; [facility] Patient education about medi cation --- I educated patient on medication(s) and diagnosis. I reviewed the risks, benefits and side effects of patient's medications Last Documented On 6 4:32PM ; [facility] Discussed calming techniques such as breathing exercises/meditation and other relaxation techniques Last Documented On 6 4:32PM ; [facility] Counseling for nutrition/rodrigo ght management provided Last Documented On 6 9:43AM ; [facility] Patient education about medi cation --- I educated patient on medication(s) and diagnosis. I reviewed the risks, benefits and side effects of patient's medications Last Documented On 6 4:34PM ; [facility] Discussed calming techniques such as breathing exercises/meditation and other relaxation techniques Last Documented On 6 4:34PM ; [facility] Counseling for nutrition/rodrigo ght management provided Last Documented On 6 5:44PM ; [facility] Patient education about medi cation --- I educated patient on medication(s) and diagnosis. I reviewed the risks, benefits and side effects of patient's medications Last Documented On 5 2:03PM ; [facility] Discussed calming techniques such as breathing exercises/meditation and other relaxation techniques Last Documented On 5 2:03PM ; [facility] Counseling for nutrition/rodrigo ght management provided Last Documented On 5 6:24AM ; [facility] Discussed good sleep hygiene habits Last Documented On 5 6:24AM ; [facility] Patient education about medi cation --- I educated patient on medication(s) and diagnosis. I reviewed the risks, benefits and side effects of patient's medications Last Documented On 5 6:30PM ; [facility] Discussed calming techniques such as breathing exercises/meditation and other relaxation techniques Last Documented On 5 4:34PM ; [facility] Counseling for nutrition/rodrigo ght management provided Last Documented On 5 5:33PM ; [facility] Patient education about medi cation --- I educated patient on medication(s) and diagnosis. I reviewed the risks, benefits and side effects of patient's medications Last Documented On 4 6:15PM ; [facility] Discussed calming techniques such as breathing exercises/meditation and other relaxation techniques Last Documented On 4 4:38PM ; [facility] Counseling for nutrition/rodrigo ght management provided Last Documented On 4 6:15PM ; [facility] Patient education about medi cation --- I educated patient on medication(s) and diagnosis. I reviewed the risks, benefits and side effects of patient's medications Last Documented On 4 11:38PM ; [facility] Discussed calming techniques such as breathing exercises/meditation and other relaxation techniques Last Documented On 4 4:36PM ; [facility] Counseling for nutrition/rodrigo ght management provided Last Documented On 4 11:38PM ; [facility] Patient education about medi cation --- I educated patient on medication(s) and diagnosis Last Documented On 3 7:02PM ; [facility] Discussed calming techniques such as breathing exercises/meditation and other relaxation techniques Last Documented On 3 4:30PM ; [facility] Discussed calming techniques such as breathing exercises/meditation and other relaxation techniques Last Documented On 3 4:32PM ; [facility] Medical Equipment - Implanted Devices Includes: Current and historical Devices No Medical Equipment Recorded Medications Includes: Current and historical Medications Current Medications (continue as prescribed) Paxil 40 MG Oral Tablet 06/23/2022 Provider: BRIONNA STILL MD Diagnosis: Obsessive-compul sive disorder, unspecified TAKE 1 AND 1/2 TABLETS BY [facility] DAILY DIRECTED Last Documented On 06/23/2022 5:34PM By Yajaira Still MD ; [facility] Gemtesa 75 MG Oral Tablet 06/23/2022 Provider: Diagnosis: 1 tab daily Last Documented On 06/23/2022 4:50PM By ELISEO JOHNSTONA ; [facility] Januvia 100 MG Oral Tablet 10/02/2021 Provider: Diagnosis: 1 tab daily Last Documented On 12/23/2021 4:46PM By ELISEO JOHNSTONA ; [facility] FeroSul 325 (65 Fe) MG Oral Tablet 05/28/2021 Provid er: Diagnosis: 1 tab daily Last Documented On 06/16/2021 4:55PM By ELISEO BARCENAS ; [facility] EPINEPHrine 0.3 MG/0.3ML Injection Solution Auto-injec tor 2020 Provider: Diagnosis: use as directed Last Documented On 12/18/2020 4:48PM By ELISEO BARCENAS ; [facility] Pramipexole Dihydrochloride 1 MG Oral Tablet 06/06/2020 Provider: NICOLA Archibald Diagnosis: patient takes 0.75 mg at bedtime Last Documented On 06/19/2020 4:58PM By ELISEO BARCENAS ; [facility] Rosuvastatin Calcium 10 MG Oral Tablet 06/18/2019 Pr ovider: NICOLA LEE MD Diagnosis: one tablet daily Last Documented On 06/20/2019 4:49PM By JENNIFER CARMICHAEL ; [facility] Modafinil 200MG Oral Tablet 07/24/2018 Provider: LUCY STILL MD Diagnosis: Obstructive slee p apnea (adult) (pediatric) as directed -- 1 tab in am Last Documented On 07/24/2018 7:44AM By Yajaira Still MD ; [facility] Amphetamine-Dextroamphetamin e 30 MG Tablet 01/01/2016 Provider: LUCY STILL MD Diagnosis: Sleep apnea, unspecified as directed Take 1/2 tablet in am and 1/2 tab at 2: 30 pm Last Documented On 01/01/2016 5:30PM By Yajaira Still MD ; [facility] [place] Vitamin D-3 1000 UNIT Tablet 01/01/2015 Provider: Diagnosis: Last Documented On 01/01/2015 2:20PM By Yajaira Still MD ; [facility] Fish Oil 1200 MG OR CAPS 01/17/2013 Provider: Diagnosis: Last Documented On 3 4:44PM By VALENTINO BARCENAS ; [facility] metFORMIN HCl 1000 MG TABS 07/19/2012 Provider: Diagnosis: Last Documented On 3 4:51PM By VALENTINO GOLD ; [facility] Omeprazole 20 MG OR CPDR 03/08/2012 Provider: Diagnosis: Last Documented On 3 2:55PM By VALENTINO GOLD ; [facility] Suspended Medications busPIRone HCl 15 MG Oral Tablet 06/23/2022 Provider: LUCY STILL MD Diagnosis: Generalized anxi ety disorder One tablet twice a day Last Documented On 06/23/2022 5:36PM By Yajaira Stlil MD ; [facility] Past Medications on file Paxil 40 MG Oral Tablet 06/16/2021 - 06/23/2022 Provider: LUCY STILL MD Diagnosis: Obsessive-compul sive disorder, unspecified TAKE 1 AND 1/2 TABLETS BY [facility] DAILY DIRECTED Last Documented On 06/23/2022 5:34PM By Yajaira Still MD ; [facility] busPIRone HCl 15 MG Oral Tablet 06/16/2021 - 06/23/2022 Provider: LUCY STILL MD Diagnosis: Generalized anxi ety disorder One tablet twice a day Last Documented On 06/23/2022 5:36PM By Yajaira Still MD ; [facility] Myrbetriq 25 MG Oral Tablet Extended Release 24 Hour 06/06/2020 - 06/23/2022 Provider: NICOLA ESPINOZA MD Diagnosis: 1 tab daily Last Documented On 06/23/2022 4:37PM By ELISEO BARCENAS ; [facility] Paxil 40 MG Oral Tablet 03/19/2020 - 06/16/2021 Provider: LUCY STILL MD Diagnosis: Obsessive-compul sive disorder, unspecified TAKE 1 AND 1/2 TABLETS BY [facility] DAILY DIRECTED Last Documented On 06/16/2021 5:25PM By Yajaira Still MD ; [facility] Paxil 40 MG Oral Tablet 10/08/2019 - 03/19/2020 Provider: LUCY STILL MD Diagnosis: Obsessive-compul sive disorder, unspecified TAKE 1 AND 1/2 TABLETS BY [facility] DAILY DIRECTED Last Documented On 03/19/2020 9:52AM By Yajaira Still MD ; [facility] busPIRone HCl 15 MG Oral Tablet 07/11/2019 - 06/16/2021 Provider: LUCY STILL MD Diagnosis: Generalized anxi ety disorder One tablet twice a day Last Documented On 06/16/2021 5:27PM By Yajaira Still MD ; [facility] Paxil 40 MG Oral Tablet 04/18/2019 - 10/08/2019 Provider: LUCY STILL MD Diagnosis: Obsessive-compul sive disorder, unspecified TAKE 1 AND 1/2 TABLETS BY [facility] DAILY DIRECTED Last Documented On 10/08/2019 6:56PM By Yajaira Still MD ; [facility] busPIRone HCl 15 MG Oral Tablet 11/03/2018 - 06/20/2019 Provider: LUCY STILL MD Diagnosis: Generalized anxi ety disorder One tablet twice a day Last Documented On 07/11/2019 2:13PM By Yajaira Still MD ; [facility] Paxil 40 MG Oral Tablet 11/01/2018 - 04/18/2019 Provider: LUCY STILL MD Diagnosis: Obsessive-compul sive disorder, unspecified TAKE 1 AND 1/2 TABLETS BY [facility] DAILY DIRECTED Last Documented On 04/18/2019 9:34AM By Yajaira Still MD ; [facility] Paxil 40MG Oral Tablet 07/24/2018 - 11/01/2018 Provider: LUCY STILL MD Diagnosis: Obsessive-compul sive disorder, unspecified as directed --1 and 1/2 tab daily Last Documented On 9 10:14AM By Yajaira Still MD ; [facility] busPIRone HCl 15MG Oral Tablet 06/29/2018 - 11/03/2018 Provider: LUCY STILL MD Diagnosis: Generalized anxi ety disorder One tablet twice a day Last Documented On 9 10:39AM By Yajaira Still MD ; [facility] busPIRone HCl 7.5 MG OR TABS 03/17/2018 - 04/16/2018 P rovider: Diagnosis: Major depressive disorder, recurrent, moderate 2 tablets twice a day Last Documented On 03/17/2018 9:59AM By ELISEO BARCENAS ; [facility] BusPIRone HCl 7.5MG Oral Tablet 03/17/2018 - 12/20/2018 Provider: LUCY STILL MD Diagnosis: Major depressive disorder, recurrent, moderate as directed 2 tablets twice a day Last Documented On 12/20/2018 5:20PM By Yajaira Still MD ; [facility] Paxil 40MG Oral Tablet 12/30/2017 - 06/29/2018 Provider: LUCY STILL MD Diagnosis: Obsessive-compul sive disorder, unspecified as directed --1 and 1/2 tab daily Last Documented On 07/24/2018 7:44AM By Yajaira Still MD ; [facility] Modafinil 200MG Oral Tablet 12/30/2017 - 06/29/2018 Provider: LUCY STILL MD Diagnosis: Obstructive slee p apnea (adult) (pediatric) as directed -- 1 tab in am Last Documented On 07/24/2018 7:44AM By Yajaira Still MD ; [facility] Paxil 40MG Oral Tablet 12/29/2017 - 12/29/2017 Provider: LUCY TOMAS MD Diagnosis: Major depressive disorder, recurrent, moderate as directed --1 and 1/2 tab daily Last Documented On 12/30/2017 2:22PM By Yajaira Still MD ; [facility] BusPIRone HCl 15MG Oral Tablet 12/29/2017 - 06/29/2018 Provider: LUCY STILL MD Diagnosis: Generalized anxi ety disorder One tablet twice a day Last Documented On 06/29/2018 5:22PM By Yajaira Still MD ; [facility] Modafinil 200MG Oral Tablet 07/04/2017 - 12/29/2017 Provider: LUCY STILL MD Diagnosis: Obstructive slee p apnea (adult) (pediatric) as directed -- 1 tab in am - - given by Dr. Vela Last Documented On 12/30/2017 2:22PM By Yajaira Still MD ; [facility] PARoxetine HCl 40MG Oral Tablet 07/04/2017 - 11/01/2018 Provider: LUCY STILL MD Diagnosis: Major depressive disorder, recurrent, moderate One tablet daily Last Documented On 01/19/2019 5:20PM By JENNIFER CARMICHAEL ; [facility] BusPIRone HCl 15MG Oral Tablet 06/29/2017 - 12/29/2017 Provider: LUCY STILL MD Diagnosis: Generalized anxi ety disorder One tablet twice a day Last Documented On 12/29/2017 5:06PM By Yajaira Still MD ; [facility] PARoxetine HCl 40MG Oral Tablet 04/26/2017 - 06/29/2017 Provider: LUCY STILL MD Diagnosis: Major depressive disorder, recurrent, moderate One tablet daily Last Documented On 07/04/2017 7:07AM By Yajaira Still MD ; [facility] Paxil CR 37.5MG Oral Tablet Extended Release 24 Hour 01/01/2017 - 06/29/2017 Provider: LUCY STILL MD Diagnosis: Major depressive disorder, recurrent, unspecified Take 1 tablet by mouth twice a day Last Documented On 06/29/2017 4:59PM By Yajaira Still MD ; [facility] Modafinil 200MG Oral Tablet 01/01/2017 - 06/29/2017 Provider: LUCY STILL MD Diagnosis: Obstructive slee p apnea (adult) (pediatric) as directed -- 1 tab in am - - given by Dr. Vela Last Documented On 07/04/2017 7:07AM By Yajaira Still MD ; [facility] Oxybutynin Chloride 5MG Oral Tablet 01/01/2017 - 06/29 Provider: Diagnosis: Last Documented On 06/29/2017 4:59PM By Yajaira Still MD ; [facility] Tamsulosin HCl 0.4MG Oral Capsule 01/01/2017 - 018 Provider: Diagnosis: Last Documented On 06/29/2017 4:58PM By Yajaira Still MD ; [facility] BusPIRone HCl 15MG Oral Tablet 12/30/2016 - 06/29/2017 Provider: LUCY STILL MD Diagnosis: Generalized anxi ety disorder One tablet twice a day Last Documented On 06/29/2017 5:01PM By Yajaira Still MD ; [facility] Paxil CR 37.5MG Oral Tablet Extended Release 24 Hour 11/08/2016 - 12/30/2016 Provider: LUCY STILL MD Diagnosis: Major depressive disorder, recurrent, unspecified Take 1 tablet by mouth twice a day Last Documented On 01/01/2017 9:31AM By Yajaira Still MD ; [facility] Modafinil 200MG Oral Tablet 09/08/2016 - 12/30/2016 Provider: LUCY STILL MD Diagnosis: Obstructive slee p apnea (adult) (pediatric) as directed -- 1 tab at 2:30 pm -- given by Dr. Vela Last Documented On 01/01/2017 9:31AM By Yajaira Still MD ; [facility] Pramipexole Dihydrochloride 0.5MG Oral Tablet 09/08/2016 - 06/16/2021 Provider: LUCY STILL MD Diagnosis: Restless legs syndrome as directed 1 and 1/2 tabs a t bedtime --- given by Dr. Vela Last Documented On 06/16/2021 5:28PM By Yajaira Still MD ; [facility] BusPIRone HCl 15MG Oral Tablet 06/29/2016 - 12/30/2016 Provider: LUCY STILL MD Diagnosis: Generalized anxi ety disorder One tablet twice a day Last Documented On 12/30/2016 5:18PM By Yajaira Still MD ; [facility] Paxil CR 37.5MG Oral Tablet Extended Release 24 Hour 06/29/2016 - 11/08/2016 Provider: LUCY STILL MD Diagnosis: Major depressive disorder, recurrent, unspecified *BID - One tablet twice a day Last Documented On 11/08/2016 4:18PM By Yajaira Still MD ; [facility] Modafinil 200 MG Tablet 01/01/2016 - 06/29/2016 Provider: LUCY STILL MD Diagnosis: Obstructive slee p apnea (adult) (pediatric) as directed -- 1 tab at 2:30 pm -- given by Dr. Vela Last Documented On 7 12:20PM By Yajaira Still MD ; [facility] BusPIRone HCl 15 MG Tablet 01/01/2016 - 06/29/2016 Provider: LUCY STILL MD Diagnosis: Generalized anxi ety disorder One tablet twice a day Last Documented On 06/29/2016 6:22PM By Yajaira Still MD ; [facility] Paxil CR 37.5 MG Tablet, extended-release 24 hour 01/01/2016 - 06/29/2016 Provider: LUCY STILL MD Diagnosis: Major depressive disorder, recurrent, unspecified *BID - One tablet twice a day Last Documented On 06/29/2016 6:24PM By Yajaira Still MD ; [facility] Benadryl Allergy 25 MG Tablet 01/01/2016 - 06/29/2016 Provider: NICOLA LEE MD Diagnosis: Take as directed. As needed Last Documented On 7 4:52PM By AYDE SIMPSON LPN ; [facility] Paxil CR 37.5 MG Tablet Extended Release 24 Hour 12/12/2015 - 01/01/2016 Provider: LUCY STILL MD Diagnosis: Major depressive disorder, recurrent, unspecified *BID - One tablet twice a day Last Documented On 01/01/2016 5:25PM By Yajaira Still MD ; [facility] Modafinil 200 MG Tablet 12/03/2015 - 01/01/2016 Provid er: Diagnosis: 1 daily Last Documented On 01/01/2016 5:30PM By Yajaira Still MD ; [facility] BusPIRone HCl 15 MG Tablet 10/29/2015 - 01/01/2016 Provider: LUCY STILL MD Diagnosis: Generalized anxi ety disorder One tablet twice a day Last Documented On 01/01/2016 5:30PM By Yajaira Still MD ; [facility] Nuvigil 200 MG Tablet 07/01/2015 - 01/01/2016 Provider: LUCY STILL MD Diagnosis: Obstructive slee p apnea (adult) (pediatric) 1 tablet every morning --giv en discount voucher on 07/01/15 but was prescribed by Dr. Lee (PCP) Last Documented On 01/01/2016 4:58PM By Yajaira Still MD ; [facility] Paxil CR 37.5 MG Tablet Extended Release 24 Hour 07/01/2015 - 12/12/2015 Provider: LUCY STILL MD Diagnosis: Major depressive disorder, recurrent, unspecified *BID - One tablet twice a day Last Documented On 12/12/2015 3:07PM By Yajaira Still MD ; [facility] BusPIRone HCl 15 MG Tablet 07/01/2015 - 10/29/2015 Provider: LUCY STILL MD Diagnosis: Generalized anxi ety disorder One tablet twice a day Last Documented On 6 10:32AM By Yajaira Still MD ; [facility] Nuvigil 200 MG Tablet 06/05/2015 - 01/01/2016 Provider : Diagnosis: 1 tablet daily Last Documented On 6 4:44PM By AYDE SIMPSON LPN ; [facility] Modafinil 200 MG Tablet 03/31/2015 - 07/01/2015 Provider: LUCY STILL MD Diagnosis: Obstructive slee p apnea (adult) (pediatric) as directed --1 tab in am and 1 tab at noon Last Documented On 6 4:41PM By AYDE SIMPSON LPN ; [facility] Nuvigil 250 MG Tablet 03/31/2015 - 04/14/2015 Provider: LUCY TOMAS MD Diagnosis: Obstructive slee p apnea (adult) (pediatric) 1 tablet every morning --14 samples for sweet pickle maker 03/31/15 Last Documented On 03/31/2015 1:00PM By Yajaira Still MD ; [facility] Paxil CR 37.5 MG Tablet, extended-release 24 hour 03/20/2015 - 07/01/2015 Provider: LUCY STILL MD Diagnosis: Major depressive disorder, recurrent, unspecified *BID - One tablet twice a day Last Documented On 07/01/2015 5:18PM By Yajaira Still MD ; [facility] BusPIRone HCl 15 MG Tablet 03/20/2015 - 07/01/2015 Provider: LUCY STILL MD Diagnosis: Generalized anxi ety disorder One tablet twice a day Last Documented On 07/01/2015 5:18PM By Yajaira Still MD ; [facility] Modafinil 200 MG Tablet 01/01/2015 - 07/01/2015 Provider: LUCY STILL MD Diagnosis: Obstructive slee p apnea (adult) (pediatric) as directed 2 in the morning -- refilled by Dr. Vela Last Documented On 6 4:42PM By AYDE SIMPSON LPN ; [facility] Paxil CR 37.5 MG Tablet Extended Release 24 Hour 01/01/2015 - 03/20/2015 Provider: LUCY STILL MD Diagnosis: Major depressive disorder, recurrent, unspecified *BID - One tablet twice a day Last Documented On 6 10:45AM By Yajaira Still MD ; [facility] BusPIRone HCl 15 MG Tablet 01/01/2015 - 03/20/2015 Provider: LUCY STILL MD Diagnosis: Generalized anxi ety disorder One tablet twice a day Last Documented On 6 10:45AM By Yajaira Still MD ; [facility] HM Vitamin B12 500 MCG Tablet 01/01/2015 - 07/01/2015 Provider: Diagnosis: Take 1 tablet by mouth daily Last Documented On 6 4:42PM By AYDE SIMPSON LPN ; [facility] HM Vitamin B12 1000 MCG Tablet Extended Release 01/01/2015 - 01/01/2016 Provider: Diagnosis: Last Documented On 01/01/2016 5:17PM By Yajaira Still MD ; [facility] Dialyvite Vitamin D 5000 5000 UNIT Capsule 01/01/2015 - 01/01/2015 Provider: Diagnosis: Take 1 capsule by mouth weekly Last Documented On 01/01/2015 2:21PM By Yajaira Still MD ; [facility] Amphetamine-Dextroamphetamin e 30 MG Tablet 01/01/2015 - 01/01/2016 Provider: GUSTAVO VELA MD Diagnosis: Sleep apnea, unspecified Take 1/2 tablet by mouth twice a day Last Documented On 01/01/2016 5:30PM By Yajaira Still MD ; [facility] Pramipexole Dihydrochloride 0.5 MG Tablet 01/01/2015 - 06/29/2016 Provider: LUCY STILL MD Diagnosis: Restless legs syndrome as directed 1 and 1/2 tabs a t bedtime --- given by Dr. Vela Last Documented On 7 12:20PM By Yajaira Still MD ; [facility] Paxil CR 37.5 MG Tablet Extended Release 24 Hour 12/13/2014 - 01/01/2015 Provider: LUCY STILL MD Diagnosis: Major depressive disorder, recurrent, unspecified *BID - One tablet twice a day Last Documented On 01/01/2015 2:42PM By Yajaira Still MD ; [facility] Modafinil 200 MG Tablet 07/29/2014 - 01/01/2015 Provider: LUCY STILL MD Diagnosis: OBSTRUCTIVE SLEE P APNEA as directed 2 in the morning -- refilled by Dr. Vela Last Documented On 01/01/2015 2:42PM By Yajiara Still MD ; [facility] BusPIRone HCl 15 MG Tablet 07/18/2014 - 01/01/2015 Provider: LUCY STILL MD Diagnosis: GENERALIZED ANXI ETY DIS One tablet twice a day Last Documented On 01/01/2015 2:42PM By Yajaira Still MD ; [facility] Paxil CR 37.5 MG Tablet, extended-release 24 hour 07/18/2014 - 12/13/2014 Provider: LUCY STILL MD Diagnosis: MAJOR DEPRESSION DISORDER/RECURRENT *BID - One tablet twice a day Last Documented On 12/13/2014 9:15AM By Yajaira Still MD ; [facility] busPIRone HCl 15 MG OR TABS 01/18/2014 - 07/18/2014 Provider: LUCY STILL MD Diagnosis: GENERALIZED ANXI ETY DIS Last Documented On 07/18/2014 5:08PM By Yajaira Still MD ; [facility] Paxil CR 37.5 MG OR TB24 01/18/2014 - 07/18/2014 Provider: LUCY TOMAS MD Diagnosis: MAJOR DEPRESSION DISORDER/RECURRENT refilled last 12/27/13 for 3 refills Last Documented On 07/18/2014 5:08PM By Yajaira Still MD ; [facility] Modafinil 200 MG OR TABS 01/18/2014 - 07/18/2014 Provider: LUCY STILL MD Diagnosis: OBSTRUCTIVE SLEE P APNEA 2 in the morning -- refilled by Dr. Vela Last Documented On 07/29/2014 6:34PM By Yajaira Still MD ; [facility] Zantac 75 75 MG OR TABS 07/17/2013 - 07/01/2015 Provid er: Diagnosis: Last Documented On 6 4:40PM By AYDE SIMPSON LPN ; [facility] Pramipexole Dihydrochloride 0.5 MG OR TABS 07/17/2013 - 01/01/2015 Provider: LUCY STILL MD Diagnosis: Restless Legs Syndrome 1 and 1/2 tabs at bedtime --- given by Dr. Vela Last Documented On 01/01/2015 2:42PM By Yajaira Still MD ; [facility] Paxil CR 37.5 MG OR TB24 07/17/2013 - 01/18/2014 Provider: LUCY TOMAS MD Diagnosis: MAJOR DEPRESSION DISORDER/RECURRENT Last Documented On 01/18/2014 5:37PM By Yajaira Still MD ; [facility] Modafinil 200 MG OR TABS 07/17/2013 - 01/18/2014 Provider: LUCY STILL MD Diagnosis: OBSTRUCTIVE SLEE P APNEA 2 in the morning Last Documented On 01/18/2014 5:37PM By Yajaira Still MD ; [facility] busPIRone HCl 15 MG OR TABS 07/17/2013 - 01/18/2014 Provider: LUCY STILL MD Diagnosis: GENERALIZED ANXI ETY DIS Last Documented On 01/18/2014 5:37PM By Yajaira Still MD ; [facility] ZyrTEC Allergy 10 MG OR TABS 07/17/2013 - 01/01/2016 P rovider: Diagnosis: Last Documented On 01/01/2016 5:16PM By Yajaira Still MD ; [facility] Paxil CR 37.5 MG OR TB24 01/17/2013 - 07/17/2013 Provider: LUCY TOMAS MD Diagnosis: MAJOR DEPRESSION DISORDER/RECURRENT Last Documented On 07/17/2013 5:23PM By Yajaira Still MD ; [facility] Modafinil 200 MG OR TABS 01/17/2013 - 07/17/2013 Provider: LUCY STILL MD Diagnosis: OBSTRUCTIVE SLEE P APNEA 2 in the morning Last Documented On 07/17/2013 5:23PM By Yajaira Still MD ; [facility] busPIRone HCl 15 MG OR TABS 01/17/2013 - 07/17/2013 Provider: LUCY STILL MD Diagnosis: GENERALIZED ANXI ETY DIS Last Documented On 07/17/2013 5:23PM By Yajaira Still MD ; [facility] Modafinil 200 MG OR TABS 07/19/2012 - 01/17/2013 Provider: LUCY STILL MD Diagnosis: OBSTRUCTIVE SLEE P APNEA 2 in the morning Last Documented On 01/17/2013 5:29PM By Yajaira Still MD ;

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
--- OUTSIDE RECORDS SUMMARY | 2024-05-18 00:14 | XMS_ITS | Encounter Summary ---
Author Organization [facility] Address [address] [place] [address] Care Team Providers Care Sewage Plant Attendant Name Role Phone Giorgio Lee MD Primary Care Provider [phone] Giorgio Lee MD Primary Care Provider [phone] Giorgio Lee MD Primary Care Provider [phone] Encounter Details Date Type Department Care Team (Late st Contact Info) Description 04/24/[address] [facility] Health Information Management [address] [place] [address] Scanning, Provider Social History Tobacco Use Types Packs/Day Years Used Date Smoking Tobacco: Never Assessed Sex and Gender Information Value Date Recorded Sex Assigned at Not on file Legal Sex Male 11:57 PM CHILD STUDY TEAM DIRECTOR Gender Identity Male 01/13/2019 7:57 PM CHILD STUDY TEAM DIRECTOR Sexual Orientation Straight 01/13/2019 7: 57 PM CHILD STUDY TEAM DIRECTOR documented as of this encounter Plan of [...] on filedocumented in this encounter Care Teams Sewage Plant Attendant Relationship Specialty Start Date End Date Giorgio Lee MD PCP - General 06/04/16 Giorgio Lee MD PCP - General 01/14/14 06/03/16 Giorgio Lee MD PCP - General 10/03/09 01/13/14 documented as of this encounter
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
--- OUTSIDE RECORDS SUMMARY | 2024-05-18 00:14 | XMS_ITS | Encounter Summary ---
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 Name Role Phone Giorgio Lee MD Primary Care Provider [phone] Giorgio Lee MD Primary Care Provider [phone] Giorgio Lee MD Primary Care Provider [phone] Encounter Details Date Type Department Care Team (Late st Contact Info) Description 04/26/2011 Orders Only [facility] [place] Health Information Management [address] [place] [address] Scanning, Provider Social History Tobacco Use Types Packs/Day Years Used Date Smoking Tobacco: Never Assessed Sex and Gender Information Value Date Recorded Sex Assigned at Not on file Legal Sex Male 11:57 PM [employer]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
--- OUTSIDE RECORDS SUMMARY | 2024-05-18 00:14 | XMS_ITS ---
Care Plan - [facility] Created on: May 18, 2024 CHUY MUNOZ : 1965 Sex: Male Author Organization [facility] Address [address] [place] [address] Phone Care Team Providers Care Ship Surveyor Name Role Phone WILIAM PHILLIPS, LUCY JUNG [facility] [phone]
--- OUTSIDE RECORDS SUMMARY | 2024-05-18 00:15 | XMS_ITS ---
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 Last Documented On 3 5:45PM ; [facility] Major Depression, Recurrent 07/19/2012 Active Last Documented On 3 5:45PM ; [facility] Restless Legs Syndrome 07/19/2012 Ac tive Last Documented On 3 5:45PM ; [facility] Obsessive Compulsive Disorder 03/08/2012 Active Last Documented On 3 5:50PM ; [facility] Generalized Anxiety Disorder 03/08/2012 Active Last Documented On 3 5:42PM ; [facility] Gerd 03/08/2012 Active Last Documented On 3 5:42PM ; [facility] Hyperlipidemia 03/08/2012 Active Last Documented On 3 5:42PM ; [facility] Obsessive Compulsive Disorder 03/08/2012 Inactive Last Documented On 3 5:42PM ; [facility] Nephrolithiasis 03/08/2012 Active Last Documented On 3 5:42PM ; [facility] Plan of Treatment Future Appointments Date Time Location Provi conrad [facility]ULT [facility] ESTABLISHED 06/20/2024 4:40PM [facility] STILL MD Last Documented On 4 5:56PM ; [facility] Education and Decision Aids were provided during visit for: Discussed good sleep hygiene habits Last Documented On 3 6:40PM ; [facility] Assessments Includes: Assessments for all patient encounters Findings Encounter Date Generalized anxiety disorder TELEHEALTH ADULT PSYCH ESTABLISHED with LUCY STILL MD 06/21/2023 Last Documented On 4 8:45PM ; [facility] Major depression, recurrent TELEHEALTH A DULT PSYCH ESTABLISHED with LUCY STILL MD 06/21/2023 Last Documented On 4 8:45PM ; [facility] Narcolepsy TELEHEALTH ADULT PSYCH ESTABLISH ED with LUCY STILL MD 06/21/2023 Last Documented On 4 8:45PM ; [facility] Obsessive compulsive disorder TELEHEALTH ADULT PSYCH ESTABLISHED with LUCY STILL MD 06/21/2023 Last Documented On 4 8:45PM ; [facility] Obstructive sleep apnea TELEHEALTH ADULT PSYCH ESTABLISHED with LUCY STILL MD 06/21/2023 Last Documented On 4 8:45PM ; [facility] Restless legs syndrome TELEHEALTH ADULT PSYCH ESTABLISHED with LUCY STILL MD 06/21/2023 Last Documented On 4 8:45PM ; [facility] Generalized anxiety disorder TELEHEALTH ADULT PSYCH ESTABLISHED with LUCY STILL MD 12/23/2022 Last Documented On 3 12:30PM ; [facility] Major depression, recurrent TELEHEALTH A DULT PSYCH ESTABLISHED with LUCY STILL MD 12/23/2022 Last Documented On 3 12:30PM ; [facility] Narcolepsy TELEHEALTH ADULT PSYCH ESTABLISH ED with LUCY STILL MD 12/23/2022 Last Documented On 3 12:30PM ; [facility] Obsessive compulsive disorder TELEHEALTH ADULT PSYCH ESTABLISHED with LUCY STILL MD 12/23/2022 Last Documented On 3 12:30PM ; [facility] Obstructive sleep apnea TELEHEALTH ADULT PSYCH ESTABLISHED with LUCY STILL MD 12/23/2022 Last Documented On 3 12:30PM ; [facility] Restless legs syndrome TELEHEALTH ADULT PSYCH ESTABLISHED with LUCY STILL MD 12/23/2022 Last Documented On 3 12:30PM ; [facility] Instructions Includes: Instructions for all patient encounters Education and Decision Aids were provided during visit for: Discussed good sleep hygiene habits Last Documented On 3 6:40PM ; [facility] Medical Equipment - Implanted Devices Includes: Current and historical Devices No Medical Equipment Recorded Medications Includes: Current and historical Medications Current Medications (continue as prescribed) Paxil 40 MG Oral Tablet 06/21/2023 Provider: BRIONNA STILL MD Diagnosis: Obsessive-compul sive disorder, unspecified TAKE 1 AND 1/2 TABLETS BY EFREM KING DAILY DIRECTED Last Documented On 06/21/2023 5:42PM By Yajaira Still MD ; [facility] busPIRone HCl 15 MG Oral Tablet 06/20/2023 Provider: LUCY STILL MD Diagnosis: Generalized anxi ety disorder One tablet twice a day Last Documented On 06/20/2023 10:49AM By Yajaira Still MD ; [facility] Pramipexole Dihydrochloride 1 MG Oral Tablet 04/20/2023 Provider: NICOLA Archibald Diagnosis: 1 and 1/2 tab in the evening Last Documented On 06/21/2023 5:48PM By Yajaira Still MD ; [facility] Fish Oil 1200 MG Oral Capsule 12/23/2022 Provider: Diagnosis: 3 caps daily Last Documented On 12/23/2022 4:48PM By ELISEO BARCENAS ; [facility] oxyBUTYnin Chloride ER 15 MG Oral Tablet Extended Release 24 Hour 11/15/2022 Provider: RAFITA RUGGIERO MD Diagnosis: 1 tab daily Last Documented On 12/23/2022 4:48PM By ELISEO BARCENAS ; [facility] Januvia 100 MG OR TABS 10/02/2021 Provider: Diagnosis: 1 tab daily Last Documented On 07/03/2022 5:27PM By ELISEO BARCENAS ; [facility] FeroSul 325 (65 Fe) MG OR TABS 05/28/2021 Provider: Diagnosis: 1 tab daily Last Documented On 07/03/2022 5:27PM By ELISEO BARCENAS ; [facility] EPINEPHrine 0.3 MG/0.3ML IJ SOAJ 2020 Provider : Diagnosis: use as directed Last Documented On 07/03/2022 5:27PM By ELISEO BARCENAS ; [facility] Rosuvastatin Calcium 10 MG OR TABS 06/18/2019 Provid er: Diagnosis: one tablet daily Last Documented On 07/03/2022 5:27PM By JENNIFER CARMICHAEL ; [facility] Modafinil 200 MG OR TABS 07/24/2018 Provider: MET SHELDON STILL MD Diagnosis: Obstructive slee p apnea (adult) (pediatric) as directed -- 1 tab in am Last Documented On 07/03/2022 5:27PM By Yajaira Still MD ; [facility] Amphetamine-Dextroamphetamin e 30 MG OR TABS 01/01/2016 Provider: LUCY STILL MD Diagnosis: Sleep apnea, unspecified as directed Take 1/2 tablet in am and 1/2 tab at 2: 30 pm Last Documented On 07/03/2022 5:27PM By Yajaira Still MD ; [facility] PA Vitamin D-3 25 MCG (1000 UT) OR TABS 01/01/2015 P rovider: Diagnosis: Last Documented On 07/03/2022 5:27PM By Yajaira Still MD ; [facility] metFORMIN HCl 1000 MG TABS 07/19/2012 Provider: Diagnosis: Last Documented On 07/03/2022 5:27PM By VALENTINO GOLD ; [facility] Omeprazole 20 MG OR CPDR 03/08/2012 Provider: Diagnosis: Last Documented On 07/03/2022 5:27PM By VALENTINO GOLD ; [facility] Past Medications on file Paxil 40 MG OR TABS 06/23/2022 - 06/21/2023 Provider: LUCY STILL MD Diagnosis: Obsessive-compul sive disorder, unspecified TAKE 1 AND 1/[address] [facility] DAILY DIRECTED Last Documented On 06/21/2023 5:42PM By Yajaira Still MD ; [facility] busPIRone HCl 15 MG OR TABS 06/23/2022 - 06/20/2023 Provider: LUCY STILL MD Diagnosis: Generalized anxi ety disorder One tablet twice a day Last Documented On 06/20/2023 10:48AM By Yajaira Still MD ; [facility] Gemtesa 75 MG OR TABS 06/23/2022 - 12/23/2022 Provider : Diagnosis: 1 tab daily Last Documented On 12/23/2022 4:48PM By ELISEO BARCENAS ; [facility] busPIRone HCl 15 MG OR TABS 06/16/2021 - 06/23/2022 Provider: LUCY STILL MD Diagnosis: Generalized anxi ety disorder One tablet twice a day Last Documented On 07/03/2022 5:27PM By Yajaira Still MD ; [facility] Paxil 40 MG OR TABS 06/16/2021 - 06/23/2022 Provider: LUCY STILL MD Diagnosis: Obsessive-compul sive disorder, unspecified TAKE 1 AND 1/2 TABLETS BY MO [facility] DAILY DIRECTED Last Documented On 07/03/2022 5:27PM By Yajaira tSill MD ; [facility] Myrbetriq 25 MG OR TB24 06/06/2020 - 06/23/2022 Provid er: Diagnosis: 1 tab daily Last Documented On 07/03/2022 5:27PM By ELISEO BARCENAS ; [facility] Pramipexole Dihydrochloride 1 MG OR TABS 06/06/2020 - 06/21/2023 Provider: Diagnosis: patient takes 0.75 mg at bedtime Last Documented On 06/21/2023 5:48PM By Yajaira Still MD ; [facility] Paxil 40 MG OR TABS 03/19/2020 - 06/16/2021 Provider: LUCY STILL MD Diagnosis: Obsessive-compul sive disorder, unspecified TAKE 1 AND 1/2 TABLETS BY MO [facility] DAILY DIRECTED Last Documented On 07/03/2022 5:27PM By Yajaira Still MD ; [facility] Paxil 40 MG OR TABS 10/08/2019 - 03/19/2020 Provider: LUCY STILL MD Diagnosis: Obsessive-compul sive disorder, unspecified TAKE 1 AND 1/2 TABLETS BY MO U[facility] DAILY DIRECTED Last Documented On 07/03/2022 5:27PM By Yajaira Still MD ; [facility] busPIRone HCl 15 MG OR TABS 07/11/2019 - 06/16/2021 Provider: LUCY STILL MD Diagnosis: Generalized anxi ety disorder One tablet twice a day Last Documented On 07/03/2022 5:27PM By Yajaira Still MD ; [facility] Paxil 40 MG OR TABS 04/18/2019 - 10/08/2019 Provider: LUCY STILL MD Diagnosis: Obsessive-compul sive disorder, unspecified TAKE 1 AND 1/2 TABLETS BY MO [facility] DAILY DIRECTED Last Documented On 07/03/2022 5:27PM By Yajaira Still MD ; [facility] busPIRone HCl 15 MG OR TABS 11/03/2018 - 06/20/2019 Provider: LUCY STILL MD Diagnosis: Generalized anxi ety disorder One tablet twice a day Last Documented On 07/03/2022 5:27PM By Yajaira Still MD ; [facility] Paxil 40 MG OR TABS 11/01/2018 - 04/18/2019 Provider: LUCY STILL MD Diagnosis: Obsessive-compul sive disorder, unspecified TAKE 1 AND 1/2 TABLETS BY MO [facility] DAILY DIRECTED Last Documented On 07/03/2022 5:27PM By Yajaira Still MD ; [facility] Paxil 40 MG OR TABS 07/24/2018 - 11/01/2018 Provider: LUCY STILL MD Diagnosis: Obsessive-compul sive disorder, unspecified as directed --1 and 1/2 tab daily Last Documented On 07/03/2022 5:27PM By Yajaira Still MD ; [facility] busPIRone HCl 15 MG OR TABS 06/29/2018 - 11/03/2018 Provider: LUCY STILL MD Diagnosis: Generalized anxi ety disorder One tablet twice a day Last Documented On 07/03/2022 5:27PM By Yajaira Still MD ; [facility] busPIRone HCl 7.5 MG OR TABS 03/17/2018 - 12/20/2018 Provider: LUCY STILL MD Diagnosis: Major depressive disorder, recurrent, moderate as directed 2 tablets twice a day Last Documented On 07/03/2022 5:27PM By Yajaira Still MD ; [facility] busPIRone HCl 7.5 MG OR TABS 03/17/2018 - 04/16/2018 P leathader: Diagnosis: Major depressive disorder, recurrent, moderate 2 tablets twice a day Last Documented On 07/03/2022 5:27PM By ELISEO BARCENAS ; [facility] Modafinil 200 MG OR TABS 12/30/2017 - 06/29/2018 Provider: LUCY STILL MD Diagnosis: Obstructive slee p apnea (adult) (pediatric) as directed -- 1 tab in am Last Documented On 07/03/2022 5:27PM By Yajaira Still MD ; [facility] Paxil 40 MG OR TABS 12/30/2017 - 06/29/2018 Provider: LUCY STILL MD Diagnosis: Obsessive-compul sive disorder, unspecified as directed --1 and 1/2 tab daily Last Documented On 07/03/2022 5:27PM By Yajaira Still MD ; [facility] Paxil 40 MG OR TABS 12/29/2017 - 12/29/2017 Provider: LUCY STILL MD Diagnosis: Major depressive disorder, recurrent, moderate as directed --1 and 1/2 tab daily Last Documented On 07/03/2022 5:27PM By Yajaira Still MD ; [facility] busPIRone HCl 15 MG OR TABS 12/29/2017 - 06/29/2018 Provider: LUCY STILL MD Diagnosis: Generalized anxi ety disorder One tablet twice a day Last Documented On 07/03/2022 5:27PM By Yajaira Still MD ; [facility] PARoxetine HCl 40 MG OR TABS 07/04/2017 - 11/01/2018 Provider: LUCY STILL MD Diagnosis: Major depressive disorder, recurrent, moderate One tablet daily Last Documented On 07/03/2022 5:27PM By Yajaira Still MD ; [facility] Modafinil 200 MG OR TABS 07/04/2017 - 12/29/2017 Provider: LUCY STILL MD Diagnosis: Obstructive slee p apnea (adult) (pediatric) as directed -- 1 tab in am - - given by Dr. Conroy Last Documented On 07/03/2022 5:27PM By Yajaira Still MD ; [facility] busPIRone HCl 15 MG OR TABS 06/29/2017 - 12/29/2017 Provider: LUCY STILL MD Diagnosis: Generalized anxi ety disorder One tablet twice a day Last Documented On 07/03/2022 5:27PM By Yajaira Still MD ; [facility] PARoxetine HCl 40 MG OR TABS 04/26/2017 - 06/29/2017 Provider: LUCY STILL MD Diagnosis: Major depressive disorder, recurrent, moderate One tablet daily Last Documented On 07/03/2022 5:27PM By Yajaira Still MD ; [facility] Modafinil 200 MG OR TABS 01/01/2017 - 06/29/2017 Provider: LUCY STILL MD Diagnosis: Obstructive slee p apnea (adult) (pediatric) as directed -- 1 tab in am - - given by Dr. Conroy Last Documented On 07/03/2022 5:27PM By Yajaira Still MD ; [facility] Tamsulosin HCl 0.4 MG OR CAPS 01/01/2017 - 06/29/2017 Provider: Diagnosis: Last Documented On 07/03/2022 5:27PM By Yajaira Still MD ; [facility] oxyBUTYnin Chloride 5 MG OR TABS 01/01/2017 - 06/30/19 Provider: Diagnosis: Last Documented On 07/03/2022 5:27PM By Yajaira Still MD ; [facility] Paxil CR 37.5 MG OR TB24 01/01/2017 - 06/29/2017 Provider: LUCY TOMAS MD Diagnosis: Major depressive disorder, recurrent, unspecified Take 1 tablet by mouth twice a day Last Documented On 07/03/2022 5:27PM By Yajaira Still MD ; [facility] busPIRone HCl 15 MG OR TABS 12/30/2016 - 06/29/2017 Provider: LUCY STILL MD Diagnosis: Generalized anxi ety disorder One tablet twice a day Last Documented On 07/03/2022 5:27PM By Yajaira Still MD ; [facility] Paxil CR 37.5 MG OR TB24 11/08/2016 - 12/30/2016 Provider: LUCY TOMAS MD Diagnosis: Major depressive disorder, recurrent, unspecified Take 1 tablet by mouth twice a day Last Documented On 07/03/2022 5:27PM By Yajaira Still MD ; [facility] Pramipexole Dihydrochloride 0.5 MG OR TABS 09/08/2016 - 06/16/2021 Provider: LUCY STILL MD Diagnosis: Restless legs syndrome as directed 1 and 1/2 tabs a t bedtime --- given by Dr. Conroy Last Documented On 07/03/2022 5:27PM By Yajaira Still MD ; [facility] Modafinil 200 MG OR TABS 09/08/2016 - 12/30/2016 Provider: LUCY STILL MD Diagnosis: Obstructive slee p apnea (adult) (pediatric) as directed -- 1 tab at 2:30 pm -- given by Dr. Conroy Last Documented On 07/03/2022 5:27PM By Yajaira Still MD ; [facility] Paxil CR 37.5 MG OR TB24 06/29/2016 - 11/08/2016 Provider: LUCY TOMAS MD Diagnosis: Major depressive disorder, recurrent, unspecified *BID - One tablet twice a day Last Documented On 07/03/2022 5:27PM By Yajaira Still MD ; [facility] busPIRone HCl 15 MG OR TABS 06/29/2016 - 12/30/2016 Provider: LUCY STILL MD Diagnosis: Generalized anxi ety disorder One tablet twice a day Last Documented On 07/03/2022 5:27PM By Yajaira Still MD ; [facility] Benadryl Allergy 25 MG OR TABS 01/01/2016 - 06/29/2016 Provider: Diagnosis: Take as directed. As needed Last Documented On 07/03/2022 5:27PM By AYDE SIMPSON LPN ; [facility] Paxil CR 37.5 MG OR TB24 01/01/2016 - 06/29/2016 Provider: LUCY TOMAS MD Diagnosis: Major depressive disorder, recurrent, unspecified *BID - One tablet twice a day Last Documented On 07/03/2022 5:27PM By Yajaira Still MD ; [facility] Modafinil 200 MG OR TABS 01/01/2016 - 06/29/2016 Provider: LUCY STILL MD Diagnosis: Obstructive slee p apnea (adult) (pediatric) as directed -- 1 tab at 2:30 pm -- given by Dr. Conroy Last Documented On 07/03/2022 5:27PM By Yajaira Still MD ; [facility] busPIRone HCl 15 MG OR TABS 01/01/2016 - 06/29/2016 Provider: LUCY STILL MD Diagnosis: Generalized anxi ety disorder One tablet twice a day Last Documented On 07/03/2022 5:27PM By Yajaira Still MD ; [facility] Paxil CR 37.5 MG OR TB24 12/12/2015 - 01/01/2016 Provider: LUCY TOMAS MD Diagnosis: Major depressive disorder, recurrent, unspecified *BID - One tablet twice a day Last Documented On 07/03/2022 5:27PM By Yajaira Still MD ; [facility] Modafinil 200 MG OR TABS 12/03/2015 - 01/01/2016 Provi conrad: Diagnosis: 1 daily Last Documented On 07/03/2022 5:27PM By AYDE SIMPSON LPN ; [facility] busPIRone HCl 15 MG OR TABS 10/29/2015 - 01/01/2016 Provider: LUCY STILL MD Diagnosis: Generalized anxi ety disorder One tablet twice a day Last Documented On 07/03/2022 5:27PM By Yajaira Still MD ; [facility] Nuvigil 200 MG OR TABS 07/01/2015 - 01/01/2016 Provider: LUCY STILL MD Diagnosis: Obstructive slee p apnea (adult) (pediatric) 1 tablet every morning --giv en discount voucher on 07/01/15 but was prescribed by Dr. Lee (PCP) Last Documented On 07/03/2022 5:27PM By Yajaira Still MD ; [facility] busPIRone HCl 15 MG OR TABS 07/01/2015 - 10/29/2015 Provider: LUCY STILL MD Diagnosis: Generalized anxi ety disorder One tablet twice a day Last Documented On 07/03/2022 5:27PM By Yajaira Still MD ; [facility] Paxil CR 37.5 MG OR TB24 07/01/2015 - 12/12/2015 Provider: LUCY TOMAS MD Diagnosis: Major depressive disorder, recurrent, unspecified *BID - One tablet twice a day Last Documented On 07/03/2022 5:27PM By Yajaira Still MD ; [facility] Nuvigil 200 MG OR TABS 06/05/2015 - 01/01/2016 Provide r: Diagnosis: 1 tablet daily Last Documented On 07/03/2022 5:27PM By AYDE SIMPSON LPN ; [facility] Modafinil 200 MG OR TABS 03/31/2015 - 07/01/2015 Provider: LUCY STILL MD Diagnosis: Obstructive slee p apnea (adult) (pediatric) as directed --1 tab in am and 1 tab at noon Last Documented On 07/03/2022 5:27PM By Yajaira Still MD ; [facility] Nuvigil 250 MG OR TABS 03/31/2015 - 04/14/2015 Provider: LUCY TOMAS MD Diagnosis: Obstructive slee p apnea (adult) (pediatric) 1 tablet every morning --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 for clam picker 03/31/15 Last Documented On 07/03/2022 5:27PM By Yajaira Still MD ; [facility] busPIRone HCl 15 MG OR TABS 03/20/2015 - 07/01/2015 Provider: LUCY STILL MD Diagnosis: Generalized anxi ety disorder One tablet twice a day Last Documented On 07/03/2022 5:27PM By Yajaira Still MD ; [facility] Paxil CR 37.5 MG OR TB24 03/20/2015 - 07/01/2015 Provider: LUCY TOMAS MD Diagnosis: Major depressive disorder, recurrent, unspecified *BID - One tablet twice a day Last Documented On 07/03/2022 5:27PM By Yajaira Still MD ; [facility] HM Vitamin B12 500 MCG OR TABS 01/01/2015 - 07/01/2015 Provider: Diagnosis: Take 1 tablet by mouth daily Last Documented On 07/03/2022 5:27PM By AYDE SIMPSON LPN ; [facility] Amphetamine-Dextroamphetamin e 30 MG OR TABS 01/01/2015 - 01/01/2016 Provider: Diagnosis: Sleep apnea, unspecified Take 1/2 tablet by mouth twice a day Last Documented On 07/03/2022 5:27PM By AYDE SIMPSON LPN ; [facility] Pramipexole Dihydrochloride 0.5 MG OR TABS 01/01/2015 - 06/29/2016 Provider: LUCY STILL MD Diagnosis: Restless legs syndrome as directed 1 and 1/2 tabs a t bedtime --- given by Dr. Conroy Last Documented On 07/03/2022 5:27PM By Yajaira Still MD ; [facility] busPIRone HCl 15 MG OR TABS 01/01/2015 - 03/20/2015 Provider: LUCY STILL MD Diagnosis: Generalized anxi ety disorder One tablet twice a day Last Documented On 07/03/2022 5:27PM By Yajaira Still MD ; [facility] Paxil CR 37.5 MG OR TB24 01/01/2015 - 03/20/2015 Provider: LUCY TOMAS MD Diagnosis: Major depressive disorder, recurrent, unspecified *BID - One tablet twice a day Last Documented On 07/03/2022 5:27PM By Yajaira Still MD ; [facility] Modafinil 200 MG OR TABS 01/01/2015 - 07/01/2015 Provider: LUCY STILL MD Diagnosis: Obstructive slee p apnea (adult) (pediatric) as directed 2 in the morning -- refilled by Dr. Conroy Last Documented On 07/03/2022 5:27PM By Yajaira Still MD ; [facility] Dialyvite Vitamin D 5000 125 MCG (5000 UT) OR CAPS 01/01/2015 - 01/01/2015 Provider: Diagnosis: Take 1 capsule by mouth weekly Last Documented On 07/03/2022 5:27PM By AYDE SIMPSON LPN ; [facility] HM Vitamin B12 1000 MCG OR TBCR 01/01/2015 - 6 Provider: Diagnosis: Last Documented On 07/03/2022 5:27PM By Yajaira Still MD ; [facility] Paxil CR 37.5 MG OR TB24 12/13/2014 - 01/01/2015 Provider: LUCY TOMAS MD Diagnosis: Major depressive disorder, recurrent, unspecified *BID - One tablet twice a day Last Documented On 07/03/2022 5:27PM By Yajaira Still MD ; [facility] Modafinil 200 MG OR TABS 07/29/2014 - 01/01/2015 Provider: LUCY STILL MD Diagnosis: OBSTRUCTIVE SLEE P APNEA as directed 2 in the morning -- refilled by Dr. Conroy Last Documented On 07/03/2022 5:27PM By Yajaira Still MD ; [facility] Paxil CR 37.5 MG OR TB24 07/18/2014 - 12/13/2014 Provider: LUCY TOMAS MD Diagnosis: MAJOR DEPRESSION DISORDER/RECURRENT *BID - One tablet twice a day Last Documented On 07/03/2022 5:27PM By Yajaira Still MD ; [facility] busPIRone HCl 15 MG OR TABS 07/18/2014 - 01/01/2015 Provider: LUCY STILL MD Diagnosis: GENERALIZED ANXI ETY DIS One tablet twice a day Last Documented On 07/03/2022 5:27PM By Yajaira Still MD ; [facility] Modafinil 200 MG OR TABS 01/18/2014 - 07/18/2014 Provider: LUCY STILL MD Diagnosis: OBSTRUCTIVE SLEE P APNEA 2 in the morning -- refilled by Dr. Conroy Last Documented On 07/03/2022 5:27PM By Yajaira Still MD ; [facility] Paxil CR 37.5 MG OR TB24 01/18/2014 - 07/18/2014 Provider: LUCY TOMAS MD Diagnosis: MAJOR DEPRESSION DISORDER/RECURRENT refilled last 12/27/13 for 3 refills Last Documented On 07/03/2022 5:27PM By Yajaira Still MD ; [facility] busPIRone HCl 15 MG OR TABS 01/18/2014 - 07/18/2014 Provider: LUCY STILL MD Diagnosis: GENERALIZED ANXI ETY DIS Last Documented On 07/03/2022 5:27PM By Yajaira Still MD ; [facility] Pramipexole Dihydrochloride 0.5 MG OR TABS 07/17/2013 - 01/01/2015 Provider: LUCY STILL MD Diagnosis: Restless Legs Syndrome 1 and 1/2 tabs at bedtime --- given by Dr. Conroy Last Documented On 07/03/2022 5:27PM By Yajaira Still MD ; [facility] Zantac 75 75 MG OR TABS 07/17/2013 - 07/01/2015 Provid er: Diagnosis: Last Documented On 07/03/2022 5:27PM By Yajaira Still MD ; [facility] ZyrTEC Allergy 10 MG OR TABS 07/17/2013 - 01/01/2016 P rovider: Diagnosis: Last Documented On 07/03/2022 5:27PM By Yajaira Still MD ; [facility] busPIRone HCl 15 MG OR TABS 07/17/2013 - 01/18/2014 Provider: LUCY STILL MD Diagnosis: GENERALIZED ANXI ETY DIS Last Documented On 07/03/2022 5:27PM By Yajaira Still MD ; [facility] Modafinil 200 MG OR TABS 07/17/2013 - 01/18/2014 Provider: LUCY STILL MD Diagnosis: OBSTRUCTIVE SLEE P APNEA 2 in the morning Last Documented On 07/03/2022 5:27PM By Yajaira Still MD ; [facility] Paxil CR 37.5 MG OR TB24 07/17/2013 - 01/18/2014 Provider: LUCY TOMAS MD Diagnosis: MAJOR DEPRESSION DISORDER/RECURRENT Last Documented On 07/03/2022 5:27PM By Yajaira Still MD ; [facility] busPIRone HCl 15 MG OR TABS 01/17/2013 - 07/17/2013 Provider: LUCY STILL MD Diagnosis: GENERALIZED ANXI ETY DIS Last Documented On 07/03/2022 5:27PM By Yajaira Still MD ; [facility] Fish Oil 1200 MG OR CAPS 01/17/2013 - 12/23/2022 Provi conrad: Diagnosis: Last Documented On 12/23/2022 4:48PM By ELISEO BARCENAS ; [facility] Paxil CR 37.5 MG OR TB24 01/17/2013 - 07/17/2013 Provider: LUCY TOMAS MD Diagnosis: MAJOR DEPRESSION DISORDER/RECURRENT Last Documented On 07/03/2022 5:27PM By Yajaira Still MD ; [facility] Modafinil 200 MG OR TABS 01/17/2013 - 07/17/2013 Provider: LUCY STILL MD Diagnosis: OBSTRUCTIVE SLEE P APNEA 2 in the morning Last Documented On 07/03/2022 5:27PM By Yajaira Still MD ; [facility] Paxil CR 37.5 MG OR TB24 07/19/2012 - 01/17/2013 Provider: LUCY TOMAS MD Diagnosis: DEPRESS PSYCHOSI S-MILD Last Documented On 07/03/2022 5:27PM By Yajaira Still MD ; [facility] Lovaza 1 GM OR CAPS 07/19/2012 - 01/17/2013 Provider: Diagnosis: 3 caps at bedtime Last Documented On 07/03/2022 5:27PM By VALENTINO GOLD ; [facility] Aspirin 81 MG OR TABS 07/19/2012 - 07/17/2013 Provider : Diagnosis: Last Documented On 07/03/2022 5:27PM By VALENTINO GOLD ; [facility] Pramipexole Dihydrochloride 0.5 MG OR TABS 07/19/2012 - 07/19/2012 Provider: Diagnosis: 1 and 1/2 tabs at bedtime Last Documented On 07/03/2022 5:27PM By VALENTINO GOLD ; [facility] Potassium Citrate ER 10 MEQ (1080 MG) OR TBCR 07/20/19 13 - 07/18/2014 Provider: Diagnosis: 2 tabs every morning Last Documented On 07/03/2022 5:27PM By VALENTINO GOLD ; [facility] busPIRone HCl 15 MG OR TABS 07/19/2012 - 01/17/2013 Provider: LUCY STILL MD Diagnosis: GENERALIZED ANXI ETY DIS Last Documented On 07/03/2022 5:27PM By Yajaira Still MD ; [facility] Pramipexole Dihydrochloride 0.5 MG OR TABS 07/19/2012 - 07/17/2013 Provider: LUCY STILL MD Diagnosis: Restless Legs Syndrome 1 and 1/2 tabs at bedtime --- given by Dr. Conroy Last Documented On 07/03/2022 5:27PM By Yajaira Still MD ; [facility] Modafinil 200 MG OR TABS 07/19/2012 - 01/17/2013 Provider: LUCY STILL MD Diagnosis: OBSTRUCTIVE SLEE P APNEA 2 in the morning Last Documented On 07/03/2022 5:27PM By Yajaira Still MD ; [facility] Chlorthalidone 25 MG OR TABS 03/08/2012 - 01/01/2016 P leathader: Diagnosis: Last Documented On 07/03/2022 5:27PM By VALENTINO GOLD ; [facility] busPIRone HCl 15 MG OR TABS 03/08/2012 - 07/19/2012 Pr ovider: Diagnosis: as needed Last Documented On 07/03/2022 5:27PM By VALENTINO GOLD ; [facility] Paxil CR 37.5 MG OR TB24 03/08/2012 - 07/19/2012 Provi conrad: Diagnosis: Last Documented On 07/03/2022 5:27PM By VALENTINO GOLD ; [facility] Crestor 10 MG OR TABS 03/08/2012 - 12/19/2019 Provider : Diagnosis: Last Documented On 07/03/2022 5:27PM By VALENTINO GOLD ; [facility] Modafinil 200 MG OR TABS 03/08/2012 - 07/19/2012 Provi conrad: Diagnosis: 1 and 1 half in the morning Last Documented On 07/03/2022 5:27PM By VALENTINO GOLD ; [facility] Niaspan 500 MG OR TBCR 03/08/2012 - 01/17/2013 Provide r: Diagnosis: Last Documented On 07/03/2022 5:27PM By VALENTINO GOLD ; [facility] Medications Administered Includes: Administered Medications in patient's chart No Administered Medications Recorded Vital Signs Includes: Vital Signs from 05/19/2023 through 05/18/2024 Vital Name 06/21/2023 04:58P Blood Pressure Sitting L 108/72 BP Cuff Size Regular Pulse Rate-Sitting (bpm) 86 Pulse Rhythm Regular Height (in) 67.5 Weight (lb) 176 Body Mass Index 27.2 Body Surface Area 1.9 Note: self reported vitals Last Documented: On 06/21/2023 4:59PM ; [facility] Results Includes: Results from 05/19/2023 through 05/18/2024 No Results Recorded For Specified Dates History of Present Illness History of Present Illness not supported for this document type No History of Present Illness Recorded Social History Description Last Updated Tobacco non-user 06/21/2023 Last Documented On 8:45PM ; [facility] Smoking Status Unknown Procedures and Surgical History Includes: Procedures from 05/19/2023 through 05/18/2024 Procedures Code Diagnosis Performing Provider Service Location Service Date PSYCHOTHERAPY 30 MIN W/ [place] [address] Major depressive disorder, recurrent, moderate, Generalized anxiety disorder, Restless legs syndrome, Narcolepsy without cataplexy LUCY STILL MD [facility] 06/21/2023 Last Documented On 4 4:04PM ; [facility] Medical History Includes: Medical History in patient's [...] Active Last Documented On 06/21/2023 4:56PM ; [facility] Note: Imported from external source. Cipro Allergy 12/20/2018 Active Last Documented On 06/21/2023 4:56PM ; [facility] Note: Imported from external source. Cipro Allergy Hives / Urticaria 12/20/2018 R esolved Last Documented On 3 4:47PM ; [facility] Aspartame Allergy Skin Rashes / Eruption of skin 06/29/2018 Active Last Documented On 06/21/2023 4:56PM ; [facility] Note: Imported from external source. Encounters Includes: Encounters from 05/19/2023 through 05/18/2024 Encounter Provider Location Date Check-In Time Check-Out Time Diagnosis [facility] ESTABLISHED LUCY STILL MD [facility] 06/21/19 24 4:45PM 01/19/2012 11:59PM Major Depression, Recurrent,Gene ralized Anxiety Disorder,Obses sive Compulsive Disorder,Narco lepsy,Restless Legs Syndrome,Nonor ganic Sleep Apnea Obstructive Insurance Includes: Active Insurance Policies Plan Name Member ID Group # Subscriber Relationship Effect refugio Dates 1 - [facility] [id number] MARYAM MUNOZ 03/10/2020 - Unknown Clinical Notes Includes: Signed Clinical Notes starting from 03/26/2022 * Progress note Date Encounter Last Documented by 06/21/2023 [facility] ESTABLISH ED Last documented on 07/11/2023; 8:45 PM, LUCY STILL MD; [facility] Top of Document Medication psychotherapy [...] planning to go for a trip to [place] and [place]. Once they landed in [place] last 03/26/2023 he felt sick and was [...] Primary Care Provider: Dr. Nicola Lee -- [place] Dr. Sukhdev Lujan -- Neurologist Dr. Rafita Salguero/Dr. Víctor Pichardo -Urologist -- [facility] Dr. Stephan Osuna -- Ophthamologist. Dr. Ron Richards -- Firewall Engineer Diagnoses: mosquito-like bites or red spots on [...] -- 09/2014, another lithotripsy done 12/17/16 -- [facility] (Dr. Pichardo) -- 06/2017 stones removed, 11/2017 stones removed at [facility] -- passed kidney stone at home 11/2018. Overactive bladder - and urge to urinate -- given Myrbetriq 25 mg and given Tamsulosin 0.4 mg 04/30/22 and 02/01/22. Hyperlipidemia. Diabetes mellitus. Contact dermatitis -- he took a steroid, antibiotic, benadryl. Arthritis - right hand -- appointment with Dr. Eduard Bañuelos [facility]. Restless legs syndrome. Narcolepsy --Dr. Conroy added Adderall 11/2014. Allergic reaction - unknown origin -- hospitalized at [facility] 09/27/20 -- given Epipen and Prednisone [...] PREVIOUS PSYCHIATRIC HOSPITALIZATIONS: He was treated at [facility] by Dr. Radames Boyer from [id number]. PREVIOUS PSYCHIATRIC TREATMENT: Dr. Radames Boyer from [id number]. PREVIOUS PSYCHIATRIC MEDICATIONS: Anafranil-caused weight gain Prozac, which he took for 2 years. These were given by Dr. Radames Boyer from [place]. Social History Tobacco use: Tobacco non-user. Caffeine use: No coffee consumption -- He drinks 1 can of diet soda and 1 glass of tea a day. Tobacco use: Smoking status: Never smoker. Alcohol: Not using alcohol. Drug Use: Not using drugs (Illicit). Work: Work history [employer] in [place], [place]. Marital: Marital history -- . He [...] Clinical summary provided to patient. * Call [phone] and /or go to the nearest emergency [...] now sees a different sleep specialist in [place], [place] Dr. Lujan -- Modafinil 200 mg [...]
--- OUTSIDE RECORDS SUMMARY | 2024-05-18 00:15 | XMS_ITS | Clinical Summary ---
Author Organization [facility] Address [address] [place] [id number] Phone Care Team Providers Care Ski Patrol Director Name Role Phone WILIAM PHILLIPS, LUCY JUNG Unavailable [phone] Reason for Visit and Chief Complaint * PHONE CALL Problems Includes: Problems addressed during this encounter and other active Problems Current Visit Onset Date Resolved Date Provider Conditio n Status Major Depression, Recurrent 07/19/2012 LUCY STILL MD Active Last Documented On 3 5:16PM ; [facility] Restless Legs Syndrome 07/19/2012 LUCY ALVAREZ MD Active Last Documented On 3 4:33PM ; [facility] Obsessive Compulsive Disorder 03/08/2012 BRADLEY STILL MD Active Last Documented On 0 10:00AM ; [facility] Generalized Anxiety Disorder 03/08/2012 LUCY STILL MD Active Last Documented On 3 2:58PM ; [facility] Obsessive Compulsive Disorder 03/08/2012 BRADLEY STILL MD Inactive Last Documented On 7 9:03PM ; [facility] Past Visits Onset Date Resolved Date Provider Condition Status Narcolepsy 10/05/2014 LUCY STILL MD Ac tive Last Documented On 5 6:20AM ; [facility] Diabetes Mellitus 07/19/2012 LUCY Oleary MD Active Last Documented On 3 4:47PM ; [facility] 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 Nahed STILL MD Active Last Documented On 3 5:05PM ; [facility] 03/08/2012 LUCY STILL MD Ac tive Last Documented On 3 2:55PM ; [facility] Hyperlipidemia 03/08/2012 LUCY Archibald Active Last Documented On 3 2:56PM ; [facility] Nephrolithiasis 03/08/2012 LUCY STILL MD Active Last Documented On 3 2:58PM ; [facility] Plan of Treatment No Plan of Treatment Recorded Assessments Includes: Assessments from this encounter Findings - Restless legs syndrome - Last Documented On 03/17/2021 2:57PM ; [facility] - Major depression, recurrent - Last Documented On 03/17/2021 2:57PM ; [facility] - Generalized anxiety disorder - Last Documented On 03/17/2021 2:57PM ; [facility] - Obsessive compulsive disorder - Last Documented On 03/17/2021 2:57PM ; [facility] Medical Equipment - Implanted Devices Includes: Current Devices No Medical Equipment Recorded Medications Includes: Medications discussed during this encounter and other current Medications Current Medications (continue as prescribed) Paxil 40 MG Oral Tablet 06/23/2022 Provider: BRIONNA STILL MD Diagnosis: Obsessive-compul sive disorder, unspecified TAKE 1 AND 1/2 TABLETS BY [facility] DAILY DIRECTED Last Documented On 06/23/2022 5:34PM By Yajaira Still MD ; [facility] Gemtesa 75 MG Oral Tablet 06/23/2022 Provider: Diagnosis: 1 tab daily Last Documented On 06/23/2022 4:50PM By ELISEO BARCENAS ; [facility] Januvia 100 MG Oral Tablet 10/02/2021 Provider: Diagnosis: 1 tab daily Last Documented On 12/23/2021 4:46PM By ELISEO BARCENAS ; [facility] FeroSul 325 (65 Fe) MG Oral Tablet 05/28/2021 Provid er: Diagnosis: 1 tab daily Last Documented On 06/16/2021 4:55PM By ELISEO BARCENAS ; [facility] EPINEPHrine 0.3 MG/0.3ML Injection Solution Auto-injec tor 2020 Provider: Diagnosis: use as directed Last Documented On 12/18/2020 4:48PM By ELISEO BARCENAS ; [facility] Pramipexole Dihydrochloride 1 MG Oral Tablet 06/06/2020 Provider: NICOLA Archibald Diagnosis: patient takes 0.75 mg at bedtime Last Documented On 06/19/2020 4:58PM By ELISEO BARCENAS ; [facility] Rosuvastatin Calcium 10 MG Oral Tablet 06/18/2019 Pr ovider: NICOLA ANAYA MD Diagnosis: one tablet daily Last Documented On 06/20/2019 4:49PM By JENNIFER CARMICHAEL ; [facility] Modafinil 200MG Oral Tablet 07/24/2018 Provider: LUCY STILL MD Diagnosis: Obstructive slee p apnea (adult) (pediatric) as directed -- 1 tab in am Last Documented On 07/24/2018 7:44AM By Yajaira Still MD ; [facility] Amphetamine-Dextroamphetamin e 30 MG Tablet 01/01/2016 Provider: LUCY STILL MD Diagnosis: Sleep apnea, unspecified as directed Take 1/2 tablet in am and 1/2 tab at 2: 30 pm Last Documented On 01/01/2016 5:30PM By Yajaira Still MD ; [facility] [place] Vitamin D-3 1000 UNIT Tablet 01/01/2015 Provider: Diagnosis: Last Documented On 01/01/2015 2:20PM By Yajaira Still MD ; [facility] Fish Oil 1200 MG OR CAPS 01/17/2013 Provider: Diagnosis: Last Documented On 3 4:44PM By VALENTINO BARCENAS ; [facility] metFORMIN HCl 1000 MG TABS 07/19/2012 Provider: Diagnosis: Last Documented On 3 4:51PM By VALENTINO GOLD ; [facility] Omeprazole 20 MG OR CPDR 03/08/2012 Provider: Diagnosis: Last Documented On 3 2:55PM By VALENTINO GOLD ; [facility] Suspended Medications busPIRone HCl 15 MG Oral Tablet 06/23/2022 Provider: LUCY STILL MD Diagnosis: Generalized anxi ety disorder One tablet twice a day Last Documented On 06/23/2022 5:36PM By Yajaira Still MD ; [facility] Past Medications on file busPIRone HCl 7.5 MG OR TABS 03/17/2018 - 04/16/2018 P rovider: Diagnosis: Major depressive disorder, recurrent, moderate 2 tablets twice a day Last Documented On 03/17/2018 9:59AM By ELISEO BARCENAS ; [facility] Nuvigil 250 MG Tablet 03/31/2015 - 04/14/2015 Provider: LUCY TOMAS MD Diagnosis: Obstructive slee p apnea (adult) (pediatric) 1 tablet every morning --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 Cipro Allergy 12/20/2018 Active Last Documented On 06/21/2023 4:56PM ; [facility] Note: Imported from external source. Cipro Allergy Hives / Urticaria 12/20/2018 R esolved Last Documented On 4:47PM ; [facility] Aspartame Allergy Skin Rashes / Eruption of skin 06/29/2018 Active Last Documented On 06/21/2023 4:56PM ; [facility] Note: Imported from external source. Encounters Encounter Provider Location Date Check-In Time Check-Out Time Diagnosis * PHONE CALL LUCY STILL MD [facility] 03/17/19 22 2:40PM 11:59PM Major Depression, Recurrent,Gene ralized Anxiety Disorder,Obses sive Compulsive Disorder,Restl ess Legs Syndrome Insurance Includes: Active Insurance Policies Plan Name Member ID Group # Subscriber Relationship Effect refugio Dates 1 - [facility] [id number] MARYAM MUNOZ 03/10/2020 - Unknown Clinical Notes Includes: Clinical Notes from this encounter No Clinical Notes Recorded
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
--- NOTE | 2024-05-18 06:30 | WPDANESEPPF ---
Anes - Initial Pre Proc Eval Procedure: Operation Date: 05/18/24 07:30 Proposed Procedures p Left Ureteral Extracorporeal Shock Wave Lithotripsy - Rafiat Salguero MD Date/Time: 05/18/24 06:30 Surgeon: Rafita Salguero MD Pre Op Diagnosis: left ureteral stone Patient Data Age: 58 Gender: M Height: 1.73 m Weight: 81 kg Allergies Allergy/AdvReac Type Severity Reaction Status Date / Time loperamide (From Imodium A-D) Allergy Intermediate Hives Verified 05/08/24 15:06 propoxyphene Allergy Intermediate HIVES, Verified 05/08/24 15:06 ITCHING chloramphenicol Allergy Unknown AN Verified 05/08/24 15:06 INFANT ciprofloxacin AdvReac Severe HIVES Verified 05/08/24 15:06 Penicillins AdvReac Unknown UNKNOWN-WAS Verified 05/08/24 15:06 AN INFANT CHLORAMPHENICOL NA SUCC Allergy Unknown AN Uncoded 05/08/24 15:06 INFANT Home Medications ?Medication ?Instructions ?Recorded ?Confirmed ?Type cholecalciferol (vitamin D3) 25 25 mcg PO DAILY 09/01/20 05/08/24 History mcg (1,000 unit) capsule omega 7-evu-ggp-fish oil 1,200 mg 3 cap PO DAILY 09/01/20 05/08/24 History (144 mg-216 mg) capsule paroxetine HCl 40 mg tablet (Paxil) 60 mg PO DAILY 09/26/20 05/08/24 History buspirone 15 mg tablet 15 mg PO BID #180 tabs 01/08/21 05/08/24 Rx epinephrine 0.3 mg/0.3 mL 0.3 mg (0.3 mL) IM ONCE PRN 01/12/22 05/08/24 Rx injection, auto-injector (EpiPen anaphylaxis #2 ea 2-Bib) ferrous sulfate 325 mg (65 mg 325 mg PO DAILY 12/24/22 05/08/24 History iron) tablet (FeroSul) blood sugar diagnostic (OneTouch #100 ea 01/13/23 05/08/24 Rx Verio test strips) blood-glucose meter (OneTouch #1 ea 01/13/23 05/08/24 Rx Verio Flex Meter) lancets 30 gauge (OneTouch Delica #100 ea 01/13/23 05/08/24 Rx Plus Lancet) rosuvastatin 10 mg tablet (Crestor) 10 mg PO DAILY #90 tabs 12/26/23 05/08/24 Rx omeprazole 20 mg capsule,delayed 20 mg PO DAILY #90 caps 01/03/24 05/08/24 Rx release metformin 1,000 mg tablet See Rx Instructions .Route 01/25/24 05/08/24 Rx .COMPLEX #180 tabs dextroamphetamine-amphetamine 30 30 mg PO BID #60 tabs 02/14/24 05/08/24 Rx mg tablet (Adderall) modafinil 200 mg tablet 200 mg PO QAM #30 tabs 03/03/24 05/08/24 Rx sitagliptin phosphate 100 mg 100 mg PO DAILY #90 tabs 03/06/24 05/08/24 Rx tablet (Januvia) darifenacin 7.5 mg tablet,extended 7.5 mg PO DAILY 03/28/24 05/08/24 History release 24 hr tirzepatide 2.5 mg/0.5 mL 2.5 mg (0.5 mL) subcut WEEKLY #6 mL 03/28/24 05/08/24 Rx subcutaneous pen injector (Mounjaro) pramipexole 1 mg tablet See Rx Instructions .Route 04/10/24 05/08/24 Rx .COMPLEX #135 tabs blood-glucose sensor (FreeStyle #13 ea 05/15/24 Rx Judith 3 Plus Sensor device) Patient hx anesthesia problems: none Family hx anesthesia problems: none Results Review: All pre-operative results and documents have been reviewed as part of the pre-operative evaluation. 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 Mitchell lives at home with his and son. He is independent in his daily activities. He is retired from working with a [employer]. His primary care provider is Dr. Lee. He would like his , Brooke, to be his surrogate decision maker and would like to be a full code. Smoking status: Never smoker Second hand tobacco smoke exposure: No Alcohol intake: never Substance use: never Substance use type: does not use Do You Feel Safe in your Home?: Yes Lack of Transportation: No Lack of Food: Never True Current Housing: I Have Housing Concerned About Future Housing: No Difficulty Paying Gas/Electric Bills: No Difficulty Paying for Meds: No Currently Unemployed: No Education: Decline to Answer Difficulty w/ Childcare or Family Care: No Living arrangements: with family Additional living arrangements comments: Gender identity (if verbalized by the patient): Male Spiritual care concerns: Yes (Yazidism) Anes - Eval Final PreProcedure Day of Procedure 05/18/24 06:30 Patient weight: overweight Heart: regular rate and rhythm Lungs: clear to auscultation Airway: Mallampati scale class 1 Neurological: alert and oriented Last oral intake: >/= 8 hours ASA classification: III Emergent: no Anesthetic plan: proceed Anesthesia type and monitoring: general LMA and standard monitoring Results Review: All pre-operative results and documents have been reviewed as part of the pre-operative evaluation. Informed Consent: The patient's anesthetic plan and its attendant risks and benefits were discussed with the patient/family/POA. Questions were solicited and answers provided to the satisfaction of the patient/family/POA.
[2024-05-18] MEDS: LACTATED RINGERS 1,000 ML 30 ML IV CONT (06:56)
[2024-05-18 07:17] LABS: Glucose Point of Care 111 mg/dl (65-105)
--- NOTE | 2024-05-18 07:17 | P.HP_ITS ---
H&P: HPI History of Present Illness Date/Time: 05/18/24 07:17 Chief Complaint: left renal calculus Narrative: 58 yr olf male s/p left ureteral stent placement . Has left renal stone which will be treated with eswl. Review of Systems Review of Systems: All systems reviewed & are unremarkable except as noted in HPI and below PMFSH Past Medical History Medical History COVID-19 Family history of malignant neoplasm of digestive organs Personal history of colonic polyps Adenomatous polyp of colon Trigger finger of right thumb Abnormal CT of the abdomen Nephrolithiasis Restless leg syndrome Obsessive compulsive disorder Type 2 diabetes mellitus Narcolepsy Acute hypokalemia Blood type AB- Mixed hyperlipidemia Arthritis of carpometacarpal (CMC) joint of left thumb Family history of malignant neoplasm of prostate 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 Mitchell lives at home with his and son. He is independent in his daily activities. He is retired from working with a [employer]. His primary care provider is Dr. Lee. He would like his , Brooke, to be his surrogate decision maker and would like to be a full code. Smoking status: Never smoker Second hand tobacco smoke exposure: No Alcohol intake: never Substance use: never Substance use type: does not use Do You Feel Safe in your Home?: Yes Lack of Transportation: No Lack of Food: Never True Current Housing: I Have Housing Concerned About Future Housing: No Difficulty Paying Gas/Electric Bills: No Difficulty Paying for Meds: No Currently Unemployed: No Education: Decline to Answer Difficulty w/ Childcare or Family Care: No Living arrangements: with family Additional living arrangements comments: Gender identity (if verbalized by the patient): Male Spiritual care concerns: Yes (Taoism) Meds Home Medications and Allergies Home Medications ?Medication ?Instructions ?Recorded ?Confirmed ?Type cholecalciferol (vitamin D3) 25 25 mcg PO DAILY 09/01/20 05/08/24 History mcg (1,000 unit) capsule omega 5-tvd-yre-fish oil 1,200 mg 3 cap PO DAILY 09/01/20 05/08/24 History (144 mg-216 mg) capsule paroxetine HCl 40 mg tablet (Paxil) 60 mg PO DAILY 09/26/20 05/08/24 History buspirone 15 mg tablet 15 mg PO BID #180 tabs 01/08/21 05/08/24 Rx epinephrine 0.3 mg/0.3 mL 0.3 mg (0.3 mL) IM ONCE PRN 01/12/22 05/08/24 Rx injection, auto-injector (EpiPen anaphylaxis #2 ea 2-Bib) ferrous sulfate 325 mg (65 mg 325 mg PO DAILY 12/24/22 05/08/24 History iron) tablet (FeroSul) blood sugar diagnostic (OneTouch #100 ea 01/13/23 05/08/24 Rx Verio test strips) blood-glucose meter (OneTouch #1 ea 01/13/23 05/08/24 Rx Verio Flex Meter) lancets 30 gauge (OneTouch Delica #100 ea 01/13/23 05/08/24 Rx Plus Lancet) rosuvastatin 10 mg tablet (Crestor) 10 mg PO DAILY #90 tabs 12/26/23 05/08/24 Rx omeprazole 20 mg capsule,delayed 20 mg PO DAILY #90 caps 01/03/24 05/08/24 Rx release metformin 1,000 mg tablet See Rx Instructions .Route 01/25/24 05/08/24 Rx .COMPLEX #180 tabs dextroamphetamine-amphetamine 30 30 mg PO BID #60 tabs 02/14/24 05/08/24 Rx mg tablet (Adderall) modafinil 200 mg tablet 200 mg PO QAM #30 tabs 03/03/24 05/08/24 Rx sitagliptin phosphate 100 mg 100 mg PO DAILY #90 tabs 03/06/24 05/08/24 Rx tablet (Januvia) darifenacin 7.5 mg tablet,extended 7.5 mg PO DAILY 03/28/24 05/08/24 History release 24 hr tirzepatide 2.5 mg/0.5 mL 2.5 mg (0.5 mL) subcut WEEKLY #6 mL 03/28/24 05/08/24 Rx subcutaneous pen injector (Yanira) pramipexole 1 mg tablet See Rx Instructions .Route 04/10/24 05/08/24 Rx .COMPLEX #135 tabs blood-glucose sensor (FreeStyle #13 ea 05/15/24 Rx Judith 3 Plus Sensor device) Allergies Allergy/AdvReac Type Severity Reaction Status Date / Time loperamide (From Imodium A-D) Allergy Intermediate Hives Verified 05/18/24 06:42 propoxyphene Allergy Intermediate HIVES, Verified 05/18/24 06:42 ITCHING chloramphenicol Allergy Unknown AN Verified 05/18/24 06:42 ciprofloxacin AdvReac Severe HIVES Verified 05/18/24 06:42 Penicillins AdvReac Unknown UNKNOWN-WAS Verified 05/18/24 06:42 AN CHLORAMPHENICOL NA SUCC Allergy Unknown AN Uncoded 05/18/24 06:42 Vital Signs Vital Signs - 24 hr 05/18/24 06:20 Temperature 36.2 C L Pulse Rate 89 Respiratory Rate 20 Blood Pressure 124/77 Pulse Oximetry 97 Oxygen Delivery Room Air Exam Const: General: cooperative and comfortable Resp: Effort & Inspection: normal respiratory effort Cardio: Rate: regular rate Rhythm: regular rhythm Assessment and Plan Assessment and plan (1) Left renal stone: Code(s): N20.0 - Calculus of kidney Status: Acute Assessment and Plan: Proceed with left renal eswl.
--- NOTE | 2024-05-18 07:20 | WPDHPUPDATE1 ---
History and Physical Update Update Date/Time: 05/18/24 07:20 History and Physical has been reviewed, including an updated exam of the patient. There are NO changes in the patient's condition. Risks, benefits, and alternatives have been discussed and questions answered. Patient agrees to proceed with procedure. Proceed with left renal eswl
[2024-05-18] MEDS: ceFAZolin 2 GM/D5W 50 ML 2 GM/50 ML BAG IVPB (07:25)
--- NOTE | 2024-05-18 08:10 | W.PM.PROC2 ---
Procedure Note - Detailed Date of Procedure 05/18/24 Pre-op Diagnosis left RENAL stone -11 mm Post-op Diagnosis Same Procedure Performed ESWL of left renal calculus Surgeon Rafita Salguero MD Anesthesia General Description of Procedure Patient was taken the operative suite correctly identified. Once anesthesia was obtained the 11 mm left renal stone was visualized in both planes. Two thousand five hundred shocks were given to the stone. There appeared to be good fragmentation. Patient was taken recovery room in stable condition. He will follow up in about a week's time for possible stent removal with a KUB. Will address the other large stone in the kidney at that time. This completes dictation. Please send a copy of op note to my office Estimated Blood Loss 0 Drains Yes Packing No Pathology None sent Complications No immediate complications Condition Stable Disposition PACU
[2024-05-18 09:03] LABS: Glucose Point of Care 99 mg/dl (65-105)
== END 2024-05-18 09:56 | disposition home or self-care (01) ==
PROVIDERS: PCP Family Medicine; Visit Provider Urology
PROC: (CPT 50590; principal; 2024-05-18 07:30)
DX: N20.0 Calculus of kidney (principal); E11.9 Type 2 diabetes mellitus without complications; E87.6 Hypokalemia; E78.2 Mixed hyperlipidemia; G25.81 Restless legs syndrome; F42.9 Obsessive-compulsive disorder, unspecified; G47.419 Narcolepsy without cataplexy; M18.12 Unilateral primary osteoarthritis of first carpometacarpal joint, left hand; Z79.84 Long term (current) use of oral hypoglycemic drugs; Z79.85 Long-term (current) use of injectable non-insulin antidiabetic drugs; Z98.890 Other specified postprocedural states; Z90.49 Acquired absence of other specified parts of digestive tract; Z96.0 Presence of urogenital implants; Z86.0100 Personal history of colon polyps, unspecified; Z80.42 Family history of malignant neoplasm of prostate; Z80.0 Family history of malignant neoplasm of digestive organs; Z80.1 Family history of malignant neoplasm of trachea, bronchus and lung; Z82.49 Family history of ischemic heart disease and other diseases of the circulatory system
CPT/HCPCS: 50590; 36415; 74018; 82948; 85610; 85730; 87086; 93005; J0690; J1100; J2003; J2405; J2704; J3010; J7120

== ENCOUNTER 2024-05-29 10:25 | Inpatient (IN) | payer OTHER, SELFPAY ==
[2024-05-29] VITALS (8 sets, daily range): BP systolic 101–128; BP diastolic 58–96; PULSE 74–111; RESP 14–21; TEMP 36.5–36.7; O2SAT 92–100
--- NOTE | ~2024-05-29 | CT_ITS ---
EXAMINATION: CT abdomen pelvis wo con DATE: 05/29/2024 11:03 INDICATION: Kidney stones. TECHNIQUE: Computed tomography (CT) of the abdomen and pelvis was performed without intravenous contr ast. Automated exposure control and iterative reconstruction technique were employed. The dose-length product was 562.84 mGy-cm. COMPARISON: CT abdomen and pelvis 05/05/2024, 11/16/17 FINDINGS: The visualized portions of the lung bases demonstrate mild atelectasis. No pleural effusion . The heart size is normal. There are coronary artery calcifications. No pericardial effusion. The li joel and spleen are normal. There are changes of cholecystectomy. The pancreas and adrenal glands are normal. There are 5 stones in right kidney measuring up to 4 mm. There are cysts in left kidney measu ring up to 18 mm. There are greater than 10 stones in left kidney measuring up to 12 mm. There is mil d left hydronephrosis. There are multiple stones in left renal pelvis measuring up to 3 mm. There is a left internal ureteral stent in expected position. There are approximately 3 stones in proximal lef t ureter measuring up to 3 mm. There is diffuse bladder wall thickening, which may be secondary to ch ronic outlet obstruction from the mildly enlarged prostate. There is diverticulosis of the colon with out evidence of diverticulitis. The appendix is normal. There is wall thickening of multiple loops of small bowel. There is chronic fat stranding at the root of the small bowel mesentery. There are no p athologically enlarged lymph nodes. There is mild lumbar spondylosis. IMPRESSION: 1. Wall thickening of multiple loops of small bowel, consistent with enteritis versus interstitial ed tyshawn. 2. Stones in the left ureter and left renal pelvis with mild left hydronephrosis and left internal ur eteral stent in expected position. 3. Bilateral nonobstructing kidney stones. Reviewed, dictated and finalized at location A. IMPRESSION: 1. Wall thickening of multiple loops of small bowel, consistent with enteritis versus interstitial edema. 2. Stones in the left ureter and left renal pelvis with mild left hydronephrosi s and left internal ureteral stent in expected position. 3. Bilateral nonobstructing kidney stones.
--- NOTE | ~2024-05-29 | XR_ITS ---
EXAMINATION: XR retrograde pyelo w/stent LT DATE: 06/01/2024 08:23 INDICATION: Left internal ureteral stent placement TECHNIQUE: Fluoroscopic images from a left internal ureteral stent placement are submitted for review . 27 seconds of fluoroscopy time. FINDINGS: There is a left double-J internal ureteral stent projecting in expected position, with proximal [place] loop at the level of the renal pelvis and distal loop in the pelvis within the bladder lumen. IMPRESSION: 1. Left internal ureteral stent placement. Please refer to real-time procedural findings for detail s. Reviewed, dictated and finalized at location A. IMPRESSION: 1. Left internal ureteral stent placement. Please refer to real-time procedur al findings for details.
[2024-05-29 11:03] LABS: Basophils Percent Auto 0.1 % (0.2-1.2); Eosinophils Absolute Auto 0.2 K/mm3 (0-0.3); Eosinophils Percent Auto 1.3 % (0-4.4); Hemoglobin 18.8 g/dL (14.0-18.0); Immature Granulocyte Absolute 0.08 K/mm3 (0.00-0.031); Immature Granulocyte Percent A 0.6 % (0-0.5); Lymphocytes Absolute Auto 2.55 K/mm3 (0.9-3.2); Lymphocytes Percent Auto 17.9 % (18.3-44.2); Mean Corpuscular HGB Conc 34.2 g/dl (32-36); Mean Corpuscular Hemoglobin 29.8 pg (26-34); Mean Corpuscular Volume 87.3 fl (80-100); Mean Platelet Volume 10.4 fl (7.4-10.4); Monocytes Absolute Auto 0.1 K/mm3 (0.1-0.6); Neutrophils Absolute Auto 11.3 K/mm3 (1.3-6.7); Neutrophils Percent Auto 79.1 % (45.5-73.1); Platelet Count Result 238 k/mm3 (150-375); Red Cell Distribution Width 12.3 % (11.5-14.5); White Blood Count 14.2 K/mm3 (4.5-10.0)
--- NOTE | 2024-05-29 11:03 | ED.MALEGU ---
HPI - Male Genitourinary General Chief complaint: Urogenital-Male Stated complaint: flank pain Time Seen by Provider: 05/29/24 10:45 History of Present Illness HPI Narrative: 58-year-old male with complex urological history including multiple kidney stones most recently 11 mm left renal stone requiring lithotripsy. He had a lithotripsy procedure done with his urologist on the . Has a ureteral stent that was placed and with potential plans for removal this . Today he noted that he was having abdominal pain, nausea vomiting, describes pain in the flank region. Vomited several times and would appear to have a vasovagal event at home. EMS brought the patient here he is currently awake and answering questions. Reports a 5/10 pain endorses nausea and vomiting with abdominal pain. Denies any trauma or injury. Was otherwise in his normal state of health. Is concerned about the kidney stone/ureteral stent as he has been reporting urinary pain. Related Data Home Medications ?Medication ?Instructions ?Recorded ?Confirmed ?Last Taken ?Type cholecalciferol (vitamin D3) 25 25 mcg PO DAILY 09/01/20 05/29/24 05/11/24 History mcg (1,000 unit) capsule omega [id number] oil 1,200 mg 3 cap PO DAILY 09/01/20 05/29/24 05/11/24 History (144 mg-216 mg) capsule paroxetine HCl 40 mg tablet (Paxil) 60 mg PO DAILY 09/26/20 05/29/24 05/17/24 History ferrous sulfate 325 mg (65 mg 325 mg PO DAILY 12/24/22 05/29/24 05/11/24 History iron) tablet (FeroSul) darifenacin 7.5 mg tablet,extended 7.5 mg PO DAILY 03/28/24 05/29/24 05/17/24 History release 24 hr Allergies Allergy/AdvReac Type Severity Reaction Status Date / Time aspartame Allergy Severe Hives Verified 05/29/24 14:58 loperamide (From Imodium A-D) Allergy Intermediate Hives Verified 05/29/24 14:46 propoxyphene Allergy Intermediate HIVES, Verified 05/29/24 14:46 ITCHING chloramphenicol Allergy Unknown AN Verified 05/29/24 14:46 INFANT ciprofloxacin AdvReac Severe HIVES Verified 05/29/24 14:46 Penicillins AdvReac Unknown UNKNOWN-WAS Verified 05/29/24 14:46 AN INFANT Review of Systems Review of Systems: As reviewed above in HPI [facility] Past Medical History Medical History COVID-19 Family history of malignant neoplasm of digestive organs Adenomatous polyp of colon Trigger finger of right thumb Nephrolithiasis Restless leg syndrome Obsessive compulsive disorder Type 2 diabetes mellitus Narcolepsy Blood type AB- Mixed hyperlipidemia Arthritis of carpometacarpal (CMC) joint of left thumb Family history of malignant neoplasm of prostate 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 Mitchell lives at home with his and son. He is independent in his daily activities. He is retired from working with a [employer]. His primary care provider is Dr. Lee. He would like his , Brooke, to be his surrogate decision maker and would like to be a full code. Smoking status: Never smoker Second hand tobacco smoke exposure: No Alcohol intake: never Substance use: never Substance use type: does not use Do You Feel Safe in your Home?: Yes Lack of Transportation: No Lack of Food: Never True Current Housing: I Have Housing Concerned About Future Housing: No Difficulty Paying Gas/Electric Bills: No Difficulty Paying for Meds: No Currently Unemployed: No Education: Bachelor's Degree Difficulty w/ Childcare or Family Care: No Living arrangements: with family Additional living arrangements comments: Gender identity (if verbalized by the patient): Male Spiritual care concerns: No Exam Narrative: GENERAL: Uncomfortable appearing but not any distress. HEAD: [Normocephalic, atraumatic.] EYES: [PERRLA and EOMI.] ENT: Nares clear, no rhinorrhea or epistaxis. Mucous membranes moist. NECK: Supple. CHEST: [Clear to auscultation. No respiratory distress.] HEART: [Regular rate and rhythm]. No murmur heard. [Normal peripheral pulses.] ABDOMEN: [Soft, nondistended], [nontender], [No rigidity or guarding] EXTREMITIES: Normal range of motion. [No edema.] SKIN: Warm, dry, no rash. NEURO: [No focal deficits]. Alert and oriented [x3.] PSYCH: [Normal mood and affect.] Course Vital Signs Vital signs: Vital Signs Pulse Rate 111 H 05/29/24 10:29 Respiratory Rate 21 H 05/29/24 10:29 Blood Pressure 110/96 H 05/29/24 10:29 Pulse Oximetry 100 05/29/24 10:29 Oxygen Delivery Room Air 05/29/24 10:29 Temperature 36.5 C 05/29/24 14:03 Pulse Rate 85 05/29/24 14:03 Respiratory Rate 14 05/29/24 14:03 Blood Pressure 110/78 05/29/24 14:03 Pulse Oximetry 97 05/29/24 14:03 Oxygen Delivery Room Air 05/29/24 10:29 MDM - Male Genitourinary MDM Narrative Medical decision making narrative: 58-year-old male with history of multiple kidney stones most recent 11 mm left renal stone requiring lithotripsy on the . He has a ureteral stent. Presents to the ED with flank pain, nausea vomiting abdominal pain. Does appear uncomfortable with the pain 5/10, tachycardic and mildly tachypneic. Normal blood pressure and saturating 100% on room air. Considerations presently are for complication of his kidney stone or lithotripsy, new kidney stone, obstructing stone, urinary tract infections, stent migration or stent complication. Laboratory studies were ordered, urinalysis obtained, CT scan without contrast ordered. Patient was somewhat drowsy for EMS so we will hold off on narcotic medications. He was given Toradol for analgesia. Workup reveals profound dehydration with hemoconcentration and elevated hemoglobin of 18.8, elevated white count of 14.2 which is likely hemoconcentrated rather than infectious. Normal platelet count. BUN and creatinine are elevated, mildly elevated glucose. Largely unremarkable electrolytes. LFTs largely within normal limits. Negative lipase. Urinalysis shows signs of dehydration but no signs of infection. CT scan shows enteritis versus interstitial edema. Stones in the left ureter and renal pelvis without any significant obstruction and no change in the stent. Nonobstructing bilateral stones. Went and re-evaluated the patient who is doing better after fluid resuscitation but still felt nauseous. He has no pain at this time. I went over the CT scan results with the patient and the CT findings consistent with gastroenteritis specially with his nausea vomiting and diarrhea that he reported. Patient was given additional fluid resuscitation I spoke to the hospitalist who agreed with the plan for admission and fluid resuscitation. Family inquired about consult Urology to have his stent removed as this was planned to be done 2 days from now. Consult was placed for routine eval. He was admitted this time to a hospital bed. Medical Records Attestation: I reviewed the patient's medical records. Lab Data Attestation: I reviewed the patient's lab results. 05/29/24 10:55 05/29/24 10:55 Labs: Lab Results 05/29/24 05/29/24 05/29/24 Range/Units 10:55 11:11 12:23 WBC 14.2 H (4.5-10.0) K/mm3 RBC 6.30 H (4.6-6.20) M/mm3 Hgb 18.8 H D (14.0-18.0) g/dL Hct 55.0 H (42.0-52.0) % MCV 87.3 (80-100) fl MCH 29.8 (26-34) pg MCHC 34.2 (32-36) g/dl RDW 12.3 (11.5-14.5) % Plt Count 238 D (150-375) k/mm3 MPV 10.4 (7.4-10.4) fl Immature Gran % (Auto) 0.6 H (0-0.5) % Neut % (Auto) 79.1 H (45.5-73.1) % Lymph % (Auto) 17.9 L (18.3-44.2) % [place] % (Auto) 1.0 L (2.6-8.5) % Eos % (Auto) 1.3 (0-4.4) % Baso % (Auto) 0.1 L (0.2-1.2) % Lymph # (Auto) 2.55 (0.9-3.2) K/mm3 [place] # (Auto) 0.1 (0.1-0.6) K/mm3 Eos # (Auto) 0.2 (0-0.3) K/mm3 Baso # (Auto) 0.0 (0.0-0.1) K/mm3 Abs Immat Gran (auto) 0.08 H (0.00-0.031) K/mm3 Absolute Neuts (auto) 11.3 H (1.3-6.7) K/mm3 Absolute Nucleated RBC 0.000 (0.0-0.012) K/mm3 Nucleated RBC % 0.0 (0.0-0.2) % Sodium 140 (137-145) mmol/L Potassium 3.7 (3.4-5.0) mmol/L Chloride 101 (98-107) mmol/L Carbon Dioxide 20 L (22-30) mmol/L Anion Gap 19 H (4-12) mmol/L BUN 22 H (9-20) mg/dL Creatinine 1.37 H (0.7-1.3) mg/dL Estim Creat Clear Calc 50 ml/min Estimated GFR 53 L (59 - ) Glucose 219 H (65-110) mg/dL POC Capillary Glucose 202 H (65-105) mg/dl Calcium 9.9 (8.4-10.2) mg/dL Total Bilirubin 0.8 (0.2-1.3) mg/dL AST 27 (17-59) U/L ALT 28 (6-50) U/L Alkaline Phosphatase 145 H (38-126) U/L Total Protein 8.0 (6.3-8.2) g/dL Albumin 4.8 (3.5-5.1) g/dL Lipase 137 (23-300) U/L Urine Color Light brown H (Yellow) Urine Appearance Cloudy H (Clear) Urine pH 5.5 (5.0-9.0) Ur Specific [place] 1.022 (1.001-1.035) Urine Protein 3+ H (Negative) mg/dL Urine Glucose (UA) Trace H (Negative) mg/dL Urine Ketones Trace H (Negative) mg/dL Ur Blood (Man) 3+ H (Negative) Urine Nitrate Negative (Negative) Urine Bilirubin Negative (Negative) Urine Urobilinogen 0.2 (<2.0) mg/dL Leukocyte Esterase Rfl 1+ H (Negative) BESS/UL Imaging Data Attestation: I personally reviewed and interpreted this imaging study as follows: My impression: Impressions Abdomen/Pelvis CT 05/29/24 11:11 IMPRESSION: 1. Wall thickening of multiple loops of small bowel, consistent with enteritis versus interstitial edema. 2. Stones in the left ureter and left renal pelvis with mild left hydronephrosis and left internal ureteral stent in expected position. 3. Bilateral nonobstructing kidney stones. Discharge Plan Discharge Clinical Impression: Gastroenteritis, Acute kidney injury, Acute dehydration Patient Disposition: Still a Patient Condition: Stable
[2024-05-29 11:13] LABS: Glucose Point of Care 202 mg/dl (65-105)
[2024-05-29 11:14] LABS: Alanine Aminotransferase 28 U/L (6-50); Albumin Level 4.8 g/dL (3.5-5.1); Alkaline Phosphatase 145 U/L (38-126); Anion Gap 19 mmol/L (4-12); Aspartate Amino Transferase 27 U/L (17-59); Bilirubin,Total 0.8 mg/dL (0.2-1.3); Blood Urea Nitrogen 22 mg/dL (9-20); Calcium 9.9 mg/dL (8.4-10.2); Carbon Dioxide 20 mmol/L (22-30); Chloride 101 mmol/L (98-107); Estimated CRCL calculation 50 ml/min; Estimated Glomerular Filt Rate 53; Glucose 219 mg/dL (65-110); Lipase 137 U/L (23-300); Potassium 3.7 mmol/L (3.4-5.0); Sodium 140 mmol/L (137-145)
[2024-05-29] MEDS: KETOROLAC 15 MG/ML VIAL (*BKC) IV PUSH (11:16)
[2024-05-29] MEDS: LACTATED RINGERS 1,000 ML 999 ML IV CONT ×2 (11:30→13:08)
[2024-05-29 12:59] LABS: Add Urine Microscopic? YES; Appearance Urine Cloudy (Clear); Bilirubin Urine Negative (Negative); Blood Urine 3+ (Negative); Glucose Urine UA Trace mg/dL (Negative); Ketones Urine Trace mg/dL (Negative); Leukocyte Esterase Ur 1+ LEU/UL (Negative); Nitrate Urine Negative (Negative); Protein Urine 3+ mg/dL (Negative); Specific Grav Ur 1.022 (1.001-1.035); Urobilinogen Urine 0.2 mg/dL (<2.0); pH Urine 5.5 (5.0-9.0)
[2024-05-29 13:01] LABS: Color Urine Light Brown (Yellow)
--- OUTSIDE RECORDS SUMMARY | 2024-05-29 13:26 | XMS_ITS | Clinical Summary ---
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 Last Documented On 3 5:45PM ; [facility] Major Depression, Recurrent 07/19/2012 Active Last Documented On 3 5:45PM ; [facility] Restless Legs Syndrome 07/19/2012 Ac tive Last Documented On 3 5:45PM ; [facility] Obsessive Compulsive Disorder 03/08/2012 Active Last Documented On 3 5:50PM ; [facility] Generalized Anxiety Disorder 03/08/2012 Active Last Documented On 3 5:42PM ; [facility] Obsessive Compulsive Disorder 03/08/2012 Inactive Last Documented On 3 5:42PM ; [facility] Past Visits Onset Date Resolved Date Provider Condition Status Diabetes Mellitus 07/19/2012 Active Last Documented On 3 5:45PM ; [facility] Gerd 03/08/2012 Active Last Documented On 3 5:42PM ; [facility] Hyperlipidemia 03/08/2012 Active Last Documented On 3 5:42PM ; [facility] Nephrolithiasis 03/08/2012 Active Last Documented On 3 5:42PM ; [facility] Plan of Treatment Major depressive disorder - Paxil 40 mg 1 and 1/2 tabs daily Obsessive Compulsive Disorder - Paxil 40 mg 1 and 1/2 tab daily Generalized Anxiety Disorder - Buspar 15 mg 1 tab 2 x a day LISA - Vpap tx is no longer helping, he now sees a different sleep specialist in [place], [place] Dr. Lujan -- Modafinil 200 mg in am -- he is now back to wearing his CPAP Restless legs Syndrome - Pramipexole 1.5 mg in evening - Last Documented On 07/11/2023 8:45PM ; [facility] Future Appointments Date Time Location Provi conrad TELEHEALTH ADULT PSYCH ESTABLISHED 06/20/2024 4:40PM [facility] STILL MD Last Documented On 5:56PM ; [facility] Assessments Includes: Assessments from this encounter Findings - Obstructive sleep apnea - Last Documented On 07/11/2023 8:45PM ; [facility] - Restless legs syndrome - Last Documented On 07/11/2023 8:45PM ; [facility] - Major depression, recurrent - Last Documented On 07/11/2023 8:45PM ; [facility] - Narcolepsy - Last Documented On 07/11/2023 8:45PM ; [facility] - Generalized anxiety disorder - Last Documented On 07/11/2023 8:45PM ; [facility] - Obsessive compulsive disorder - Last Documented On 07/11/2023 8:45PM ; [facility] Medical Equipment - Implanted Devices Includes: Current Devices No Medical Equipment Recorded Medications Includes: Medications discussed during this encounter and other current Medications Discontinued / Stopped on this date on 06/06/2020 Pramipexole Dihydrochloride 1 MG OR TABS Provider: Diagnosis: Last Documented On 06/21/2023 5:48PM By Yajaira Still MD ; [facility] New / Renewed during this visit LUCY STILL MD on 06/21/2023 Paxil 40 MG Oral Tablet Provider: BRIONNA STILL MD 90 day supply: 135 tablet, 3 refills Diagnosis: Obsessive-compulsive disorder, unspecified TAKE 1 AND 1/2 TABLETS BY [facility] DAILY DIRECTED Pharmacy: [facility] [address], [address] - Last Documented On 06/21/2023 5:42PM By Yajaira Still MD ; [facility] Current Medications (continue as prescribed) busPIRone HCl 15 MG Oral Tablet 06/20/2023 Provider: LUCY STILL MD Diagnosis: Generalized anxi ety disorder One tablet twice a day Last Documented On 06/20/2023 10:49AM By Yajaira Still MD ; [facility] Pramipexole Dihydrochloride 1 MG Oral Tablet 04/20/2023 Provider: NICOLA Archibald Diagnosis: 1 and 1/2 tab in the evening Last Documented On 06/21/2023 5:48PM By Yajaira Still MD ; [facility] Fish Oil 1200 MG Oral Capsule 12/23/2022 Provider: Diagnosis: 3 caps daily Last Documented On 12/23/2022 4:48PM By ELISEO BARCENAS ; [facility] oxyBUTYnin Chloride ER 15 MG Oral Tablet Extended Release 24 Hour 11/15/2022 Provider: RAFITA RUGGIERO MD Diagnosis: 1 tab daily Last Documented On 12/23/2022 4:48PM By ELISEO DIAL RMA ; [facility] Januvia 100 MG OR TABS 10/02/2021 Provider: Diagnosis: 1 tab daily Last Documented On 07/03/2022 5:27PM By ELISEO BARCENAS ; [facility] FeroSul 325 (65 Fe) MG OR TABS 05/28/2021 Provider: Diagnosis: 1 tab daily Last Documented On 07/03/2022 5:27PM By ELISEO BARCENAS ; [facility] EPINEPHrine 0.3 MG/0.3ML IJ SOAJ 2020 Provider : Diagnosis: use as directed Last Documented On 07/03/2022 5:27PM By ELISEO BARCENAS ; [facility] Rosuvastatin Calcium 10 MG OR TABS 06/18/2019 Provid er: Diagnosis: one tablet daily Last Documented On 07/03/2022 5:27PM By JENNIFER CARMICHAEL ; [facility] Modafinil 200 MG OR TABS 07/24/2018 Provider: MET SHELDON STILL MD Diagnosis: Obstructive slee p apnea (adult) (pediatric) as directed -- 1 tab in am Last Documented On 07/03/2022 5:27PM By Yajaira Still MD ; [facility] Amphetamine-Dextroamphetamin e 30 MG OR TABS 01/01/2016 Provider: LUCY STILL MD Diagnosis: Sleep apnea, unspecified as directed Take 1/2 tablet in am and 1/2 tab at 2: 30 pm Last Documented On 07/03/2022 5:27PM By Yajaira Still MD ; [facility] Vitamin D-3 25 MCG (1000 UT) OR TABS 01/01/2015 P rovider: Diagnosis: Last Documented On 07/03/2022 5:27PM By Yajaira Still MD ; [facility] metFORMIN HCl 1000 MG TABS 07/19/2012 Provider: Diagnosis: Last Documented On 07/03/2022 5:27PM By VALENTINO GOLD ; [facility] Omeprazole 20 MG OR CPDR 03/08/2012 Provider: Diagnosis: Last Documented On 07/03/2022 5:27PM By VALENTINO GOLD ; [facility] Past Medications on file busPIRone HCl 7.5 MG OR TABS 03/17/2018 - 04/16/2018 P rovider: Diagnosis: Major depressive disorder, recurrent, moderate 2 tablets twice a day Last Documented On 07/03/2022 5:27PM By ELISEO BARCENAS ; [facility] Nuvigil 250 MG OR TABS 03/31/2015 - 04/14/2015 Provider: LUCY TOMAS MD Diagnosis: Obstructive slee p apnea (adult) (pediatric) 1 tablet every morning --14 samples for molded goods spot picker 03/31/15 Last Documented On 07/03/2022 5:27PM By Yajaira Still MD ; [facility] Medications Administered Includes: Administered Medications from [...] vitals Last Documented: On 06/21/2023 4:59PM ; [facility] Results Includes: Results discussed during [...] planning to go for a trip to [facility] and [facility]. Once they landed in [facility] last 03/26/2023 he felt sick and was having some coughing fits and immediately he thought that he got COVID. His brought some home test kits for COVID and he was positive for COVID and so he and his were not able to continue the tour to [facility] so they had to come back home. 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 His highest grade level achieved was graduate school. 06/21/2023 Last Documented On 4 4:45PM ; [facility] Tobacco non-user 06/21/2023 Last Documented On 4 8:45PM ; [facility] Smoking Status Unknown Procedures and Surgical History Includes: Procedures from this encounter Procedures Code Diagnosis Performing Provider Service Location Service Date PSYCHOTHERAPY 30 MIN [place]/ [place] [address] Major depressive disorder, recurrent, moderate, Generalized anxiety disorder, Restless legs syndrome, Narcolepsy without cataplexy LUCY STILL MD [facility]-PSY 06/21/2023 Last Documented On 4 4:04PM ; [facility] education and instructions Last Documented On 4 4:45PM ; [facility] supportive care and encourag ement--given positive reinforcement to keep patient motivated and active Last Documented On 4 5:05PM ; [facility] ~* Call [phone] and /or go t o the nearest emergency room or call me if suicidal/homicidal ideation or other serious concerns arise. ~ ~* I gave instructions to call me should there be any questions or concerns. ~ ~* Patient voiced understanding and agreed to treatment plan Last Documented On 4 4:57PM ; [facility] dangerousness assessment: no suicide risk 3085F Last Documented On 4 4:45PM ; [facility] use of tobacco assessment performed 1000F Last Documented On 4 4:45PM ; [facility] patient screened for future fall risk: documentation of any fall with injury in past year - no recent falls 1100F Last Documented On 4 4:45PM ; [facility] review of medications documented 1160F Last Documented On 4 4:45PM ; [facility] assessment of suicide risk performed - n ot suicidal Last Documented On 4 4:57PM ; [facility] screening for adult depressi on: impression and score - please see above for treatment and PHQ score Last Documented On 4 4:57PM ; [facility] standardized depression screening: posit refugio for symptoms Last Documented On 4 4:45PM ; [facility] encouragement to exercise - balanced pippa l plan, low fat low carb diet Last Documented On 4 4:57PM ; [facility] Clinical summary provided to patient Last Documented On 4 4:45PM ; [facility] PHQ-9: total score 2 Last Documented On 4 12:11PM ; [facility] Medical History Includes: Medical History addressed during this encounter Description Last Updated Primary Care Provider: Dr. Nahed Lee -- Josiah Lujan -- Neurologist Dr. Rafita Salguero/Dr. Víctor Pichardo -Urologist -- [facility] Dr. Stephan Osuna -- Ophthamologist.Dr. Ron Richards [...] another lithotripsy done 12/17/16 -- [facility] (Dr. Pichardo) -- 06/2017 stones removed, 11/2017 stones removed at [facility] -- passed kidney stone at home 11/2018. Overactive bladder - and urge to urinate -- given Myrbetriq 25 mg and given Tamsulosin 0.4 mg 04/30/22 and 02/01/22. Hyperlipidemia. Diabetes mellitus. Contact dermatitis -- he took a steroid, antibiotic, benadryl. Arthritis - right hand -- appointment with Dr. Eduard Bañuelos [facility]. Restless legs syndrome. Narcolepsy --Dr. Conroy added Adderall 11/2014. Allergic reaction - unknown origin -- hospitalized at [facility] 09/27/20 -- given Epipen and Prednisone 10 [...] 201006/21/2023 Last Documented On 4 5:04PM ; [facility] Family History Includes: Family History addressed during this encounter Description Last Updated Family medical history: No significant f amily history 06/21/2023 Last Documented On 4 4:45PM ; [facility] Review of Systems Includes: Review [...] Active Last Documented On 06/21/2023 4:56PM ; [facility] Note: Imported from external source. Cipro Allergy 12/20/2018 Active Last Documented On 06/21/2023 4:56PM ; [facility] Note: Imported from external source. Cipro Allergy Hives / Urticaria 12/20/2018 R esolved Last Documented On 3 4:47PM ; [facility] Aspartame Allergy Skin Rashes / Eruption of skin 06/29/2018 Active Last Documented On 06/21/2023 4:56PM ; [facility] Note: Imported from external source. Encounters Encounter Provider Location Date Check-In Time Check-Out Time Diagnosis TELEHEALTH ADULT PSYCH ESTABLISHED LUCY STILL MD [facility]-PSY 06/21/19 24 4:45PM 11:59PM Major Depression, Recurrent,Gene ralized Anxiety Disorder,Obses sive Compulsive Disorder,Narco lepsy,Restless Legs Syndrome,Nonor ganic Sleep Apnea Obstructive Insurance Includes: Active Insurance Policies Plan Name Member ID Group # Subscriber Relationship Effect refugio Dates 1 - [facility] [id number] MARYAM MUNOZ 03/10/2020 - Unknown Clinical Notes Includes: Clinical Notes from this encounter * Progress note Date Encounter Last Documented by 06/21/2023 TELEHEALTH ADULT PSYCH ESTABLISH ED Last documented on 07/11/2023; 8:45 PM, LUCY STILL MD; [facility] Top of Document Medication [...] planning to go for a trip to [facility] and [place]. Once they landed in [facility] last 03/26/2023 he felt sick and [...] Primary Care Provider: Dr. Nicola Lee -- [place] Dr. Sukhdev Lujan -- Neurologist Dr. Rafita Salguero/Dr. Víctor Pichardo -Urologist -- [facility] Dr. Stephan Osuna -- Ophthamologist. Dr. Ron Richards -- Glaze Handler Diagnoses: mosquito-like bites or red spots on [...] another lithotripsy done 12/17/16 -- [facility] (Dr. Pichardo) -- 06/2017 stones removed, 11/2017 stones removed at [facility] -- passed kidney stone at home 11/2018. Overactive bladder - and urge to urinate -- given Myrbetriq 25 mg and given Tamsulosin 0.4 mg 04/30/22 and 02/01/22. Hyperlipidemia. Diabetes mellitus. Contact dermatitis -- he took a steroid, antibiotic, benadryl. Arthritis - right hand -- appointment with Dr. Eduard Bañuelos [facility]. Restless legs syndrome. Narcolepsy --Dr. Conroy added Adderall 11/2014. Allergic reaction - unknown origin -- hospitalized at [facility] 09/27/20 -- given Epipen and Prednisone 10 [...] PREVIOUS PSYCHIATRIC HOSPITALIZATIONS: He was treated at [facility] by Dr. Radames Boyer from [id number]. PREVIOUS PSYCHIATRIC TREATMENT: Dr. Radames Boyer from [id number]. PREVIOUS PSYCHIATRIC MEDICATIONS: Anafranil-caused weight gain Prozac, which he took for 2 years. These were given by Dr. Radames Boyer from [place]. Social History Tobacco use: Tobacco non-user. Caffeine use: No coffee consumption -- He drinks 1 can of diet soda and 1 glass of tea a day. Tobacco use: Smoking status: Never smoker. Alcohol: Not using alcohol. Drug Use: Not using drugs (Illicit). 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 Marital: Marital history -- . He [...] Clinical summary provided to patient. * Call [phone] and /or go to the nearest emergency [...] now sees a different sleep specialist in [place], [place] Dr. Lujan -- Modafinil 200 mg [...]
--- OUTSIDE RECORDS SUMMARY | 2024-05-29 13:26 | XMS_ITS | Clinical Summary ---
Author Organization [facility] Address [address] [place] [address] Phone Care Team Providers Care Audiology Doctor Name Role Phone WILIAM PHILLIPS, LUCY JUNG [facility] [phone] Reason for Visit and Chief Complaint [Patient Encounter] Problems Includes: Problems addressed during this encounter and other active Problems All Visits Onset Date Resolved Date Provider Condition S tatus Narcolepsy 10/05/2014 Active Last Documented On 3 5:48PM ; [facility] Diabetes Mellitus 07/19/2012 Active Last Documented On 3 5:45PM ; [facility] 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 Last Documented On 3 5:45PM ; [facility] Major Depression, Recurrent 07/19/2012 Active Last Documented On 3 5:45PM ; [facility] Restless Legs Syndrome 07/19/2012 Ac tive Last Documented On 3 5:45PM ; [facility] Obsessive Compulsive Disorder 03/08/2012 Active Last Documented On 3 5:50PM ; [facility] Generalized Anxiety Disorder 03/08/2012 Active Last Documented On 3 5:42PM ; [facility] Gerd 03/08/2012 Active Last Documented On 3 5:42PM ; [facility] Hyperlipidemia 03/08/2012 Active Last Documented On 3 5:42PM ; [facility] Nephrolithiasis 03/08/2012 Active Last Documented On 3 5:42PM ; [facility] Plan of Treatment Future Appointments Date Time Location Provi conrad TELEHEALTH ADULT PSYCH ESTABLISHED 06/20/2024 4:40PM [facility] LUCY STILL MD Last Documented On 5:56PM ; [facility] Assessments Includes: Assessments from this encounter [...] 07/03/2022 5:27PM By Yajaira Still MD ; [facility] Current Medications (continue as prescribed) Paxil 40 MG Oral Tablet 06/21/2023 Provider: BRIONNA STILL MD Diagnosis: Obsessive-compul sive disorder, unspecified TAKE 1 AND 1/2 TABLETS BY [facility] DAILY DIRECTED Last Documented On 06/21/2023 5:42PM By Yajaira Still MD ; [facility] busPIRone HCl 15 MG Oral Tablet 06/20/2023 Provider: LUCY STILL MD Diagnosis: Generalized anxi ety disorder One tablet twice a day Last Documented On 06/20/2023 10:49AM By Yajaira Still MD ; [facility] Pramipexole Dihydrochloride 1 MG Oral Tablet 04/20/2023 Provider: NICOLA Archibald Diagnosis: 1 and 1/2 tab in the evening Last Documented On 06/21/2023 5:48PM By Yajaira Still MD ; [facility] Fish Oil 1200 MG Oral Capsule 12/23/2022 Provider: Diagnosis: 3 caps daily Last Documented On 12/23/2022 4:48PM By ELISEO BARCENAS ; [facility] oxyBUTYnin Chloride ER 15 MG Oral Tablet Extended Release 24 Hour 11/15/2022 Provider: LAYO RUGGIERO MD Diagnosis: 1 tab daily Last Documented On 12/23/2022 4:48PM By ELISEO BARCENAS ; [facility] Januvia 100 MG OR TABS 10/02/2021 Provider: Diagnosis: 1 tab daily Last Documented On 07/03/2022 5:27PM By ELISEO BARCENAS ; [facility] FeroSul 325 (65 Fe) MG OR TABS 05/28/2021 Provider: Diagnosis: 1 tab daily Last Documented On 07/03/2022 5:27PM By ELISEO BARCENAS ; [facility] EPINEPHrine 0.3 MG/0.3ML IJ SOAJ 2020 Provider : Diagnosis: use as directed Last Documented On 07/03/2022 5:27PM By ELISEO BARCENAS ; [facility] Rosuvastatin Calcium 10 MG OR TABS 06/18/2019 Provid er: Diagnosis: one tablet daily Last Documented On 07/03/2022 5:27PM By JENNIFER CARMICHAEL ; [facility] Modafinil 200 MG OR TABS 07/24/2018 Provider: MET SHELDON STILL MD Diagnosis: Obstructive slee p apnea (adult) (pediatric) as directed -- 1 tab in am Last Documented On 07/03/2022 5:27PM By Yajaira Still MD ; [facility] Amphetamine-Dextroamphetamin e 30 MG OR TABS 01/01/2016 Provider: LUCY STILL MD Diagnosis: Sleep apnea, unspecified as directed Take 1/2 tablet in am and 1/2 tab at 2: 30 pm Last Documented On 07/03/2022 5:27PM By Yajaira Still MD ; [facility] Vitamin D-3 25 MCG (1000 UT) OR TABS 01/01/2015 P rovider: Diagnosis: Last Documented On 07/03/2022 5:27PM By Yajaira Still MD ; [facility] metFORMIN HCl 1000 MG TABS 07/19/2012 Provider: Diagnosis: Last Documented On 07/03/2022 5:27PM By VALENTINO GOLD ; [facility] Omeprazole 20 MG OR CPDR 03/08/2012 Provider: Diagnosis: Last Documented On 07/03/2022 5:27PM By VALENTINO GOLD ; [facility] Medications Administered Includes: Administered Medications [...] vitals Last Documented: On 07/03/2022 6:00PM ; [facility] Results Includes: Results discussed during [...] Active Last Documented On 06/21/2023 4:56PM ; [facility] Note: Imported from external source. Cipro Allergy 12/20/2018 Active Last Documented On 06/21/2023 4:56PM ; [facility] Note: Imported from external source. Cipro Allergy Hives / Urticaria 12/20/2018 R esolved Last Documented On 4:47PM ; [facility] Aspartame Allergy Skin Rashes / Eruption of skin 06/29/2018 Active Last Documented On 06/21/2023 4:56PM ; [facility] Note: Imported from external source. Encounters Encounter Provider Location Date Check-In Time Check-Out Time Diagnosis [Patient Encounter] 06/16/2021 12:00AM 11:59PM Insurance Includes: Active Insurance Policies Plan Name Member ID Group # Subscriber Relationship Effect refugio Dates 1 - [facility] [id number] MARYAM MUNOZ 03/10/2020 - Unknown Clinical Notes Includes: Clinical Notes from this encounter No Clinical Notes Recorded
--- OUTSIDE RECORDS SUMMARY | 2024-05-29 13:26 | XMS_ITS | Clinical Summary ---
Author Organization [facility] Address [address] [place] [id number] Care Team Providers Care Director Recreation Center Name Role Phone Giorgio Lee MD Primary Care Provider [phone] Allergies Active Allergy Reactions Criticality Noted Date [...] Comments Blood Pressure 121/78 02/22/2021 12:30 AM [employer] Pulse 77 02/22/2021 1:00 AM [employer] Temperature 36.9 C (98.4 F) 02/21/2021 9:27 PM [employer] Respiratory Rate 15 02/22/2021 1:00 AM [employer] Oxygen Saturation 99% 02/22/2021 1:00 AM G[employer] Inhaled Oxygen Concentration - - Weight - - Height 172.7 cm (5' 8 ) 02/21/2021 9:27 PM [employer] Body Mass Index - - Plan of [...] patient's age to complete this topic Insurance [facility] Care Teams Director Recreation Center Relationship Specialty Start Date End Date Giorgio Lee MD PCP - General FAMILY PRACTICE 12/18/20
--- OUTSIDE RECORDS SUMMARY | 2024-05-29 13:26 | XMS_ITS | Clinical Summary ---
Author Organization [facility] Medical Office Building B Address [address] [place] [address] Care Team Providers Care Manufacturing Operator Name Role Phone Giorgio Lee MD Primary Care Provider [phone] Allergies Active Allergy Reactions Criticality Noted Date [...] a meal 0 0 6 Active omega 4-rre-ynw-fish oil (FISH OIL) 360-1,200 mg capsule,delayed release(DR/EC) [...] (06/13/2018): Added automatically from request for surgery [id number] Overweight (BMI 25.0-29.9) 10/22/2016 Hay fever 01/26/2016 [...] on file Legal Sex Male 11:57 PM VOLLEYBALL COMMENTATOR Gender Identity Male 01/13/2019 7:57 PM VOLLEYBALL COMMENTATOR Sexual Orientation Straight 01/13/2019 7: 57 PM VOLLEYBALL COMMENTATOR Obstetrics History Last Filed Vital Signs Vital [...] LIPID PANEL Routine 04/07/2013 8:4 5 PM VOLLEYBALL COMMENTATOR from Last 3 Months or Most Recently Relevant to Health Maintenance Results * COLONOSCOPY (07/28/2018 9:02 AM CDT) Anatomical Region Laterality Modality Other Narrative Procedure Note Ramo Meza MD - 07/28/2018 9:[address] [facility] Patient Name: Chuy Mitchell Procedure Date: 07/28/2018 9:02 AM Date of : 1965 Admit Type: Outpatient Age: 52 Gender: Male Attending MD: Ramo Meza M.D. Room: [facility] ROOM 1 Note Status: Finalized Patient [...] Repeat colonoscopy in 3 - 5 years formerly [facility]. - Continue present medications. Medicines: Monitored [...] passed under direct vision.The Pediatric Colonoscope PCF-H190L [id number] was introduced through the anus and advanced [...] 9:02 AM Procedure Code(s): --- Professional --- 97434, Colonoscopy, flexible; with biopsy, single or multiple Diagnosis Code(s): --- Professional --- Z80.0, Family history of malignant neoplasm of digestive organs Z86.010, Personal history of colonic polyps K64.8, Other hemorrhoids D12.5, Benign neoplasm of sigmoid colon K57.30, Diverticulosis of large intestine without perforation orabscess without bleeding CPT copyright 2017 [employer]. All rights reserved. The codes documented in this report are preliminary and upon client services account manager reviewmay be revised to meet current compliance requirements. Recognized by the [employer] for promoting quality [...] mL/min/1.73m2 *Relative to young adult level If -[place]ian multiply value by 1.16. Estimated glomerular filtration [...] ORDERABLES Final Resul t MARCIN LOWE GERSON) 3 [facility] Department of Laboratories [place], [place] [id number] * (ABNORMAL) Serum lipid panel (04/07/2013 8:45 PM VOLLEYBALL COMMENTATOR) LDL 54 0 - 129 mg/dl HISTORICAL [...] revised on 2007. Serum 04/07/2013 8:45 PM VOLLEYBALL COMMENTATOR us Edgar Pratt MD LAB BLOOD ORDERABLES Final Resul t HISTORICAL RESULTS from Last 3 Months or Most Recently Relevant to Health Maintenance Insurance [facility] PLUS [facility] PLUS [facility] PLUS Care Teams Manufacturing Operator Relationship Specialty Start Date End Date Giorgio Lee MD PCP - General 06/04/16
--- OUTSIDE RECORDS SUMMARY | 2024-05-29 13:26 | XMS_ITS | Clinical Summary ---
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 Last Documented On 3 5:45PM ; [facility] Major Depression, Recurrent 07/19/2012 Active Last Documented On 3 5:45PM ; [facility] Restless Legs Syndrome 07/19/2012 Ac tive Last Documented On 3 5:45PM ; [facility] Obsessive Compulsive Disorder 03/08/2012 Active Last Documented On 3 5:50PM ; [facility] Generalized Anxiety Disorder 03/08/2012 Active Last Documented On 3 5:42PM ; [facility] Obsessive Compulsive Disorder 03/08/2012 Inactive Last Documented On 3 5:42PM ; [facility] Past Visits Onset Date Resolved Date Provider Condition Status Diabetes Mellitus 07/19/2012 Active Last Documented On 3 5:45PM ; [facility] Gerd 03/08/2012 Active Last Documented On 3 5:42PM ; [facility] Hyperlipidemia 03/08/2012 Active Last Documented On 3 5:42PM ; [facility] Nephrolithiasis 03/08/2012 Active Last Documented On 3 5:42PM ; [facility] Plan of Treatment Major depressive disorder - Paxil 40 mg 1 and 1/2 tabs daily Obsessive Compulsive Disorder - Paxil 40 mg 1 and 1/2 tab daily Generalized Anxiety Disorder - Buspar 15 mg 1 tab 2 x a day LISA - Vpap tx is no longer helping, he now sees a different sleep specialist in [place], [place] Dr. Lujan -- Modafinil 200 mg in am Restless legs Syndrome - Pramipexole 1.5 mg in evening - Last Documented On 01/03/2023 12:30PM ; [facility] Future Appointments Date Time Location Provi conrad TELEHEALTH ADULT PSYCH ESTABLISHED 06/20/2024 4:40PM [facility] STILL MD Last Documented On 4 5:56PM ; [facility] Education and Decision Aids were provided during visit for: Discussed good sleep hygiene habits Last Documented On 3 6:40PM ; [facility] Assessments Includes: Assessments from this encounter Findings - Obstructive sleep apnea - Last Documented On 01/03/2023 12:30PM ; [facility] - Restless legs syndrome - Last Documented On 01/03/2023 12:30PM ; [facility] - Major depression, recurrent - Last Documented On 01/03/2023 12:30PM ; [facility] - Narcolepsy - Last Documented On 01/03/2023 12:30PM ; [facility] - Generalized anxiety disorder - Last Documented On 01/03/2023 12:30PM ; [facility] - Obsessive compulsive disorder - Last Documented On 01/03/2023 12:30PM ; [facility] Instructions Includes: Instructions from this encounter Education and Decision Aids were provided during visit for: Discussed good sleep hygiene habits Last Documented On 3 6:40PM ; [facility] Medical Equipment - Implanted Devices Includes: Current Devices No Medical Equipment Recorded Medications Includes: Medications discussed during this encounter and other current Medications Discontinued / Stopped on this date on 06/23/2022 Gemtesa 75 MG OR TABS Provider: Diagnosis: Last Documented On 12/23/2022 4:48PM By ELISEO BARCENAS ; [facility] Current Medications (continue as prescribed) Paxil 40 MG Oral Tablet 06/21/2023 Provider: BRIONNA STILL MD Diagnosis: Obsessive-compul sive disorder, unspecified TAKE 1 AND 1/2 TABLETS BY [facility] DAILY DIRECTED Last Documented On 06/21/2023 5:42PM By Yajaira Still MD ; [facility] busPIRone HCl 15 MG Oral Tablet 06/20/2023 Provider: LUCY STILL MD Diagnosis: Generalized anxi ety disorder One tablet twice a day Last Documented On 06/20/2023 10:49AM By Yajaira Still MD ; [facility] Pramipexole Dihydrochloride 1 MG Oral Tablet 04/20/2023 Provider: NICOLA Archibald Diagnosis: 1 and 1/2 tab in the evening Last Documented On 06/21/2023 5:48PM By Yajaira Still MD ; [facility] Fish Oil 1200 MG Oral Capsule 12/23/2022 Provider: Diagnosis: 3 caps daily Last Documented On 12/23/2022 4:48PM By ELISEO BARCENAS ; [facility] oxyBUTYnin Chloride ER 15 MG Oral Tablet Extended Release 24 Hour 11/15/2022 Provider: RAFITA RUGGIERO MD Diagnosis: 1 tab daily Last Documented On 12/23/2022 4:48PM By ELISEO DIAL RMA ; [facility] Januvia 100 MG OR TABS 10/02/2021 Provider: Diagnosis: 1 tab daily Last Documented On 07/03/2022 5:27PM By ELISEO BARCENAS ; [facility] FeroSul 325 (65 Fe) MG OR TABS 05/28/2021 Provider: Diagnosis: 1 tab daily Last Documented On 07/03/2022 5:27PM By ELISEO BARCENAS ; [facility] EPINEPHrine 0.3 MG/0.3ML IJ SOAJ 2020 Provider : Diagnosis: use as directed Last Documented On 07/03/2022 5:27PM By ELISEO BARCENAS ; [facility] Rosuvastatin Calcium 10 MG OR TABS 06/18/2019 Provid er: Diagnosis: one tablet daily Last Documented On 07/03/2022 5:27PM By JENNIFER CARMICHAEL ; [facility] Modafinil 200 MG OR TABS 07/24/2018 Provider: MET SHELDON STILL MD Diagnosis: Obstructive slee p apnea (adult) (pediatric) as directed -- 1 tab in am Last Documented On 07/03/2022 5:27PM By Yajaira Still MD ; [facility] Amphetamine-Dextroamphetamin e 30 MG OR TABS 01/01/2016 Provider: LUCY STILL MD Diagnosis: Sleep apnea, unspecified as directed Take 1/2 tablet in am and 1/2 tab at 2: 30 pm Last Documented On 07/03/2022 5:27PM By Yajaira Still MD ; [facility] PA Vitamin D-3 25 MCG (1000 UT) OR TABS 01/01/2015 P rovider: Diagnosis: Last Documented On 07/03/2022 5:27PM By Yajaira Still MD ; [facility] metFORMIN HCl 1000 MG TABS 07/19/2012 Provider: Diagnosis: Last Documented On 07/03/2022 5:27PM By VALENTINO GOLD ; [facility] Omeprazole 20 MG OR CPDR 03/08/2012 Provider: Diagnosis: Last Documented On 07/03/2022 5:27PM By VALENTINO GOLD ; [facility] Past Medications on file busPIRone HCl 7.5 MG OR TABS 03/17/2018 - 04/16/2018 P rovider: Diagnosis: Major depressive disorder, recurrent, moderate 2 tablets twice a day Last Documented On 07/03/2022 5:27PM By ELISEO BARCENAS ; [facility] Nuvigil 250 MG OR TABS 03/31/2015 - 04/14/2015 Provider: LUCY TOMAS MD Diagnosis: Obstructive slee p apnea (adult) (pediatric) 1 tablet every morning --14 samples for turkey picker 03/31/15 Last Documented On 07/03/2022 5:27PM By Yajaira Still MD ; [facility] Medications Administered Includes: Administered Medications from [...] 18 months to qualify for a pension senior care. 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 His highest grade level achieved was graduate school. 12/23/2022 Last Documented On 3 4:55PM ; [facility] Tobacco non-user 12/23/2022 Last Documented On 3 12:30PM ; [facility] Smoking Status Unknown Procedures and Surgical History Includes: Procedures from this encounter Procedures Code Diagnosis Performing Provider Service L ocation Service Date education and instructions Last Documented On 3 4:32PM ; [facility] supportive care and encourag ement--given positive reinforcement to keep patient motivated and active Last Documented On 3 5:00PM ; [facility] ~* Call 911/[phone] and /or go t o the nearest emergency room or call me if suicidal/homicidal ideation or other serious concerns arise. ~ ~* I gave instructions to call me should there be any questions or concerns. ~ ~* Patient voiced understanding and agreed to treatment plan Last Documented On 3 4:49PM ; [facility] dangerousness assessment: no suicide risk 3085F Last Documented On 3 4:32PM ; [facility] use of tobacco assessment performed 1000F Last Documented On 3 4:50PM ; [facility] patient screened for future fall risk: documentation of any fall with injury in past year - no recent falls 1100F Last Documented On 3 4:49PM ; [facility] review of medications documented 1160F Last Documented On 3 4:49PM ; [facility] screening for adult depression: impressi on and score - not suicidal Last Documented On 3 4:50PM ; [facility] standardized depression screening: posit refugio for symptoms Last Documented On 3 4:50PM ; [facility] encouragement to exercise - balanced pippa l plan, low fat low carb diet Last Documented On 3 4:49PM ; [facility] Clinical summary provided to patient Last Documented On 3 4:32PM ; [facility] PHQ-9: total score 2 Last Documented On 3 4:58PM ; [facility] Medical History Includes: Medical History addressed during this encounter Description Last Updated Primary Care Provider: Dr. Nahed Lee -- Josiah Lujan -- Neurologist Dr. Rafita Salguero/Dr. Víctor Pichardo -Urologist -- [facility] Dr. Stephan Osuna -- Ophthamologist.Dr. Ron [...] -- 09/2014, another lithotripsy done 12/17/16 -- [facility] (Dr. Pichardo) -- 06/2017 stones removed, 11/2017 stones removed at [facility] -- passed kidney stone at home 11/2018. Overactive bladder - and urge to urinate -- given Myrbetriq 25 mg and given Tamsulosin 0.4 mg 04/30/22 and 02/01/22. Hyperlipidemia. Diabetes mellitus. Contact dermatitis -- he took a steroid, antibiotic, benadryl. Arthritis - right hand -- appointment with Dr. Eduard Bañuelos [facility]. Restless legs syndrome. Narcolepsy --Dr. Conroy added Adderall 11/2014. Allergic reaction - unknown origin -- hospitalized at [facility] 09/27/20 -- given Epipen and Prednisone [...] 201012/23/2022 Last Documented On 3 6:41PM ; [facility] Family History Includes: Family History addressed during this encounter Description Last Updated Family medical history: No significant f amily history 12/23/2022 Last Documented On 3 4:56PM ; [facility] Review of Systems Includes: [...] Active Last Documented On 06/21/2023 4:56PM ; [facility] Note: Imported from external source. Cipro Allergy 12/20/2018 Active Last Documented On 06/21/2023 4:56PM ; [facility] Note: Imported from external source. Cipro Allergy Hives / Urticaria 12/20/2018 R esolved Last Documented On 4:47PM ; [facility] Aspartame Allergy Skin Rashes / Eruption of skin 06/29/2018 Active Last Documented On 06/21/2023 4:56PM ; [facility] Note: Imported from external source. Encounters Encounter Provider Location Date Check-In Time Check-Out Time Diagnosis TELEHEALTH ADULT PSYCH ESTABLISHED LUCY STILL MD [facility] 12/24/19 4:32PM 11:59PM Nonorganic Sleep Apnea Obstructive,O bsessive Compulsive Disorder,Rest less Legs Syndrome,Gene ralized Anxiety Disorder,Jinny r Depression, Recurrent,Mike colepsy Insurance Includes: Active Insurance Policies Plan Name Member ID Group # Subscriber Relationship Effect refugio Dates 1 - [facility] [id number] MARYAM MUNOZ 03/10/2020 - Unknown Clinical Notes Includes: Clinical Notes from this encounter * Progress note Date Encounter Last Documented by 12/23/2022 TELEHEALTH ADULT PSYCH ESTABLISH ED Last documented on 01/03/2023; 12:30 PM, LUCY STILL MD; [facility] Top of Document Medication psychotherapy 30 minutes [...] 18 months to qualify for a pension senior care. He is busy driving his 23 y/o [...] Dr. Rafita Salguero/Dr. Víctor Pichardo -Urologist -- [facility] Dr. Stephan Osuna -- Ophthamologist. Dr. Ron Richards -- Gas Engine Operator Diagnoses: mosquito-like bites or red spots on [...] -- 09/2014, another lithotripsy done 12/17/16 -- [facility] (Dr. Pichardo) -- 06/2017 stones removed, 11/2017 stones removed at [facility] -- passed kidney stone at home 11/2018. Overactive bladder - and urge to urinate -- given Myrbetriq 25 mg and given Tamsulosin 0.4 mg 04/30/22 and 02/01/22. Hyperlipidemia. Diabetes mellitus. Contact dermatitis -- he took a steroid, antibiotic, benadryl. Arthritis - right hand -- appointment with Dr. Eduard Bañuelos [facility]. Restless legs syndrome. Narcolepsy --Dr. Conroy added Adderall 11/2014. Allergic reaction - unknown origin -- hospitalized at [facility] 09/27/20 -- given Epipen and Prednisone [...] PREVIOUS PSYCHIATRIC HOSPITALIZATIONS: He was treated at [facility] by Dr. Radames Boyer from [phone]. PREVIOUS PSYCHIATRIC TREATMENT: Dr. Radames Boyer from [phone]. PREVIOUS PSYCHIATRIC MEDICATIONS: Anafranil-caused weight gain Prozac, which he took for 2 years. These were given by Dr. Radames Boyer from [place]. Social History Tobacco use: Tobacco non-user. Caffeine use: No coffee consumption -- He drinks 1 can of diet soda and 1 glass of tea a day. Tobacco use: Smoking status: Never smoker. Alcohol: Not using alcohol. Drug Use: Not using drugs (Illicit). 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 Marital: Marital history -- . He [...] Clinical summary provided to patient. * Call [phone] and /or go to the nearest emergency [...] now sees a different sleep specialist in [place], [place] Dr. Lujan -- Modafinil 200 mg [...]
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
--- OUTSIDE RECORDS SUMMARY | 2024-05-29 13:26 | XMS_ITS | Clinical Summary ---
Author Organization [facility] Address [address] [place] [address] Phone Care Team Providers Care Chef Kitchen Manager Name Role Phone WILIAM PHILLIPS, LUCY JUNG [facility] [phone] Reason for Visit and Chief Complaint [Patient Encounter] Problems Includes: Problems addressed during this encounter and other active Problems All Visits Onset Date Resolved Date Provider Condition S tatus Narcolepsy 10/05/2014 Active Last Documented On 3 5:48PM ; [facility] Diabetes Mellitus 07/19/2012 Active Last Documented On 3 5:45PM ; [facility] 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 Last Documented On 3 5:45PM ; [facility] Major Depression, Recurrent 07/19/2012 Active Last Documented On 3 5:45PM ; [facility] Restless Legs Syndrome 07/19/2012 Ac tive Last Documented On 3 5:45PM ; [facility] Obsessive Compulsive Disorder 03/08/2012 Active Last Documented On 3 5:50PM ; [facility] Generalized Anxiety Disorder 03/08/2012 Active Last Documented On 3 5:42PM ; [facility] Gerd 03/08/2012 Active Last Documented On 3 5:42PM ; [facility] Hyperlipidemia 03/08/2012 Active Last Documented On 3 5:42PM ; [facility] Nephrolithiasis 03/08/2012 Active Last Documented On 3 5:42PM ; [facility] Plan of Treatment Future Appointments Date Time Location Provi conrad [facility] ESTABLISHED 06/20/2024 4:40PM [facility] LUCY STILL MD Last Documented On 5:56PM ; [facility] Assessments Includes: Assessments from this encounter No Assessments Recorded Medical Equipment - Implanted Devices Includes: Current Devices No Medical Equipment Recorded Medications Includes: Medications discussed during this encounter and other current Medications Discontinued / Stopped on this date on 06/06/2020 Myrbetriq 25 MG OR TB24 Provider: Diagnosis: Last Documented On 07/03/2022 5:27PM By ELISEO BARCENAS ; [facility] Current Medications (continue as prescribed) Paxil 40 MG Oral Tablet 06/21/2023 Provider: BRIONNA STILL MD Diagnosis: Obsessive-compul sive disorder, unspecified TAKE 1 AND 1/2 TABLETS BY [facility] DAILY DIRECTED Last Documented On 06/21/2023 5:42PM By Yajaira Still MD ; [facility] busPIRone HCl 15 MG Oral Tablet 06/20/2023 Provider: LUCY STILL MD Diagnosis: Generalized anxi ety disorder One tablet twice a day Last Documented On 06/20/2023 10:49AM By Yajaira Still MD ; [facility] Pramipexole Dihydrochloride 1 MG Oral Tablet 04/20/2023 Provider: NICOLA Archibald Diagnosis: 1 and 1/2 tab in the evening Last Documented On 06/21/2023 5:48PM By Yajaira Still MD ; [facility] Fish Oil 1200 MG Oral Capsule 12/23/2022 Provider: Diagnosis: 3 caps daily Last Documented On 12/23/2022 4:48PM By ELISEO BARCENAS ; [facility] oxyBUTYnin Chloride ER 15 MG Oral Tablet Extended Release 24 Hour 11/15/2022 Provider: LAYO RUGGIERO MD Diagnosis: 1 tab daily Last Documented On 12/23/2022 4:48PM By ELISEO BARCENAS ; [facility] Januvia 100 MG OR TABS 10/02/2021 Provider: Diagnosis: 1 tab daily Last Documented On 07/03/2022 5:27PM By ELISEO BARCENAS ; [facility] FeroSul 325 (65 Fe) MG OR TABS 05/28/2021 Provider: Diagnosis: 1 tab daily Last Documented On 07/03/2022 5:27PM By ELISEO BARCENAS ; [facility] EPINEPHrine 0.3 MG/0.3ML IJ SOAJ 2020 Provider : Diagnosis: use as directed Last Documented On 07/03/2022 5:27PM By ELISEO BARCENAS ; [facility] Rosuvastatin Calcium 10 MG OR TABS 06/18/2019 Provid er: Diagnosis: one tablet daily Last Documented On 07/03/2022 5:27PM By JENNIFER CARMICHAEL ; [facility] Modafinil 200 MG OR TABS 07/24/2018 Provider: MET SHELDON STILL MD Diagnosis: Obstructive slee p apnea (adult) (pediatric) as directed -- 1 tab in am Last Documented On 07/03/2022 5:27PM By Yajaira Still MD ; [facility] Amphetamine-Dextroamphetamin e 30 MG OR TABS 01/01/2016 Provider: LUCY STILL MD Diagnosis: Sleep apnea, unspecified as directed Take 1/2 tablet in am and 1/2 tab at 2: 30 pm Last Documented On 07/03/2022 5:27PM By Yajaira Still MD ; [facility] PA Vitamin D-3 25 MCG (1000 UT) OR TABS 01/01/2015 P rovider: Diagnosis: Last Documented On 07/03/2022 5:27PM By Yajaira Still MD ; [facility] metFORMIN HCl 1000 MG TABS 07/19/2012 Provider: Diagnosis: Last Documented On 07/03/2022 5:27PM By VALENTINO GOLD ; [facility] Omeprazole 20 MG OR CPDR 03/08/2012 Provider: Diagnosis: Last Documented On 07/03/2022 5:27PM By VALENTINO GOLD ; [facility] Medications Administered Includes: Administered Medications [...] vitals Last Documented: On 07/03/2022 6:00PM ; [facility] Results Includes: Results discussed [...] Active Last Documented On 06/21/2023 4:56PM ; [facility] Note: Imported from external source. Cipro Allergy 12/20/2018 Active Last Documented On 06/21/2023 4:56PM ; [facility] Note: Imported from external source. Cipro Allergy Hives / Urticaria 12/20/2018 R esolved Last Documented On 4:47PM ; [facility] Aspartame Allergy Skin Rashes / Eruption of skin 06/29/2018 Active Last Documented On 06/21/2023 4:56PM ; [facility] Note: Imported from external source. Encounters Encounter Provider Location Date Check-In Time Check-Out Time Diagnosis [Patient Encounter] 06/23/2022 12:00AM 11:59PM Insurance Includes: Active Insurance Policies Plan Name Member ID Group # Subscriber Relationship Effect refugio Dates 1 - [facility] [id number] MARYAM MUNOZ 03/10/2020 - Unknown Clinical Notes Includes: Clinical Notes from this encounter No Clinical Notes Recorded
--- OUTSIDE RECORDS SUMMARY | 2024-05-29 13:26 | XMS_ITS | Encounter Summary ---
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 Name Role Phone Giorgio Lee MD Primary Care Provider [phone] Giorgio Lee MD Primary Care Provider [phone] Giorgio Lee MD Primary Care Provider [phone] Encounter Details Date Type Department Care Team (Late st Contact Info) Description 04/26/2011 Orders Only [facility] Health Information Management [address] [place] [address] Scanning, Provider Social History Tobacco Use Types Packs/Day Years Used Date Smoking Tobacco: Never Assessed Sex and Gender Information Value Date Recorded Sex Assigned at Not on file Legal Sex Male 11:57 PM PHONE SPECIALIST Gender Identity Male 01/13/2019 7:57 PM PHONE SPECIALIST Sexual Orientation Straight 01/13/2019 7: 57 PM PHONE SPECIALIST documented as of this encounter Plan of [...] on filedocumented in this encounter Care Teams Trench Digging Machine Operator Relationship Specialty Start Date End Date Giorgio Lee MD PCP - General 06/04/16 Giorgio Lee MD PCP - General 01/14/14 06/03/16 Giorgio Lee MD PCP - General 10/03/09 01/13/14 documented as of this encounter
--- OUTSIDE RECORDS SUMMARY | 2024-05-29 13:26 | XMS_ITS | Clinical Summary ---
Author Organization [facility] Address [address] [place] [address] Phone Care Team Providers Care Continuous Absorption Process Operator Name Role Phone WILIAM PHILLIPS, LUCY JUNG [facility] [phone] Reason for Visit and Chief Complaint [Patient Encounter] Problems Includes: Problems addressed during this encounter and other active Problems All Visits Onset Date Resolved Date Provider Condition S tatus Narcolepsy 10/05/2014 Active Last Documented On 3 5:48PM ; [facility] Diabetes Mellitus 07/19/2012 Active Last Documented On 3 5:45PM ; [facility] 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 Last Documented On 3 5:45PM ; [facility] Major Depression, Recurrent 07/19/2012 Active Last Documented On 3 5:45PM ; [facility] Restless Legs Syndrome 07/19/2012 Ac tive Last Documented On 3 5:45PM ; [facility] Obsessive Compulsive Disorder 03/08/2012 Active Last Documented On 3 5:50PM ; [facility] Generalized Anxiety Disorder 03/08/2012 Active Last Documented On 3 5:42PM ; [facility] Gerd 03/08/2012 Active Last Documented On 3 5:42PM ; [facility] Hyperlipidemia 03/08/2012 Active Last Documented On 3 5:42PM ; [facility] Nephrolithiasis 03/08/2012 Active Last Documented On 3 5:42PM ; [facility] Plan of Treatment Future Appointments Date Time Location Provi conrad [facility] ESTABLISHED 06/20/2024 4:40PM [facility] LUCY STILL MD Last Documented On 5:56PM ; [facility] Assessments Includes: Assessments from this encounter No Assessments Recorded Medical Equipment - Implanted Devices Includes: Current Devices No Medical Equipment Recorded Medications Includes: Medications discussed during this encounter and other current Medications Current Medications (continue as prescribed) Paxil 40 MG Oral Tablet 06/21/2023 Provider: BRIONNA STILL MD Diagnosis: Obsessive-compul sive disorder, unspecified TAKE 1 AND 1/2 TABLETS BY [facility] DAILY DIRECTED Last Documented On 06/21/2023 5:42PM By Yajaira Still MD ; [facility] busPIRone HCl 15 MG Oral Tablet 06/20/2023 Provider: LUCY STILL MD Diagnosis: Generalized anxi ety disorder One tablet twice a day Last Documented On 06/20/2023 10:49AM By Yajaira Still MD ; [facility] Pramipexole Dihydrochloride 1 MG Oral Tablet 04/20/2023 Provider: NICOLA Archibald Diagnosis: 1 and 1/2 tab in the evening Last Documented On 06/21/2023 5:48PM By Yajaira Still MD ; [facility] Fish Oil 1200 MG Oral Capsule 12/23/2022 Provider: Diagnosis: 3 caps daily Last Documented On 12/23/2022 4:48PM By ELISEO BRACENAS ; [facility] oxyBUTYnin Chloride ER 15 MG Oral Tablet Extended Release 24 Hour 11/15/2022 Provider: LAYO RUGGIERO MD Diagnosis: 1 tab daily Last Documented On 12/23/2022 4:48PM By ELISEO BARCENAS ; [facility] Januvia 100 MG OR TABS 10/02/2021 Provider: Diagnosis: 1 tab daily Last Documented On 07/03/2022 5:27PM By ELISEO BARCENAS ; [facility] FeroSul 325 (65 Fe) MG OR TABS 05/28/2021 Provider: Diagnosis: 1 tab daily Last Documented On 07/03/2022 5:27PM By ELISEO BARCENAS ; [facility] EPINEPHrine 0.3 MG/0.3ML IJ SOAJ 2020 Provider : Diagnosis: use as directed Last Documented On 07/03/2022 5:27PM By ELISEO BARCENAS ; [facility] Rosuvastatin Calcium 10 MG OR TABS 06/18/2019 Provid er: Diagnosis: one tablet daily Last Documented On 07/03/2022 5:27PM By JENNIFER CARMICHAEL ; [facility] Modafinil 200 MG OR TABS 07/24/2018 Provider: MET SHELDON STILL MD Diagnosis: Obstructive slee p apnea (adult) (pediatric) as directed -- 1 tab in am Last Documented On 07/03/2022 5:27PM By Yajaira Still MD ; [facility] Amphetamine-Dextroamphetamin e 30 MG OR TABS 01/01/2016 Provider: LUCY STILL MD Diagnosis: Sleep apnea, unspecified as directed Take 1/2 tablet in am and 1/2 tab at 2: 30 pm Last Documented On 07/03/2022 5:27PM By Yajaira Still MD ; [facility] PA Vitamin D-3 25 MCG (1000 UT) OR TABS 01/01/2015 P rovider: Diagnosis: Last Documented On 07/03/2022 5:27PM By Yajaira Still MD ; [facility] metFORMIN HCl 1000 MG TABS 07/19/2012 Provider: Diagnosis: Last Documented On 07/03/2022 5:27PM By VALENTINO GOLD ; [facility] Omeprazole 20 MG OR CPDR 03/08/2012 Provider: Diagnosis: Last Documented On 07/03/2022 5:27PM By VALENTINO GOLD ; [facility] Medications Administered Includes: Administered Medications from [...] Documented: On 07/03/2022 6:00PM ; [facility] Results Includes: Results discussed during this [...] Documented On 06/21/2023 4:56PM ; [facility] Note: Imported from external source. Cipro Allergy 12/20/2018 Active Last Documented On 06/21/2023 4:56PM ; [facility] Note: Imported from external source. Cipro Allergy Hives / Urticaria 12/20/2018 R esolved Last Documented On 4:47PM ; [facility] Aspartame Allergy Skin Rashes / Eruption of skin 06/29/2018 Active Last Documented On 06/21/2023 4:56PM ; [facility] Note: Imported from external source. Encounters Encounter Provider Location Date Check-In Time Check-Out Time Diagnosis [Patient Encounter] 12/23/2021 12:00AM 11:59PM Insurance Includes: Active Insurance Policies Plan Name Member ID Group # Subscriber Relationship Effect refugio Dates 1 - [facility] [id number] MARYAM MUNOZ 03/10/2020 - Unknown Clinical Notes Includes: Clinical Notes from this encounter No Clinical Notes Recorded
--- OUTSIDE RECORDS SUMMARY | 2024-05-29 13:26 | XMS_ITS ---
Care Plan - [facility] Medical [facility] S Created on: May 29, 2024 CHUY MUNOZ : 1965 Sex: Male Author Organization [facility] Medical [facility] S Address [address] [place] [address] Phone Care Team Providers Care Education Adviser Name Role Phone LUCY SWAIN MD Unavailable [phone]
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
--- OUTSIDE RECORDS SUMMARY | 2024-05-29 13:26 | XMS_ITS | Referral Summary ---
Author Organization [facility] Address [address] [place] [address] Care Team Providers Care Thumb Sewer Name Role Phone Giorgio Lee MD Primary Care Provider [phone] Allergies Active Allergy Reactions Criticality Noted Date [...] a meal 0 0 6 Active omega 4-nmd-stq-fish oil (FISH OIL) 360-1,200 mg capsule,delayed release(DR/EC) [...] (06/13/2018): Added automatically from request for surgery [id number] Overweight (BMI 25.0-29.9) 10/22/2016 Hay fever 01/26/2016 [...] on file Legal Sex Male 11:57 PM [employer] Gender Identity Male 01/13/2019 7:57 PM [employer] Sexual Orientation Straight 01/13/2019 7: 57 PM [employer] Last Filed Vital Signs Vital Sign Reading [...] LIPID PANEL Routine 04/07/2013 8:4 5 PM [employer] from Last 3 Months or Most Recently Relevant to Health Maintenance Results * COLONOSCOPY (07/28/2018 9:02 AM CDT) Anatomical Region Laterality Modality Other Narrative Procedure Note Ramo Meza MD - 07/28/2018 9:02 AM CDT [facility] Patient Name: Chuy Mitchell Procedure Date: 07/28/2018 9:02 AM Date of : 1965 Admit Type: Outpatient Age: 52 Gender: Male Attending MD: Ramo Meza M.D. Room: [facility] ENDOSCOPY ROOM 1 Note Status: Finalized Patient [...] passed under direct vision.The Pediatric Colonoscope [id number]-[id number] was introduced through the anus and advanced [...] 9:02 AM Procedure Code(s): --- Professional --- 52614, Colonoscopy, flexible; with biopsy, single or multiple Diagnosis Code(s): --- Professional --- Z80.0, Family history of malignant neoplasm of digestive organs Z86.010, Personal history of colonic polyps K64.8, Other hemorrhoids D12.5, Benign neoplasm of sigmoid colon K57.30, Diverticulosis of large intestine without perforation orabscess without bleeding CPT copyright 2017 [employer]. All rights reserved. The codes documented in this report are preliminary and upon inpatient coder reviewmay be revised to meet current compliance requirements. Recognized by the [employer] [employer] for promoting quality in endoscopy Ramo Meza MD ENDOSCOPY PROCEDURES Final Result * eGFR (12/12/2016 11:06 AM CDT) eGFR >60 mL/min/1.7 3 m2 [facility] Comment: Interpretive Data Reference Interval Normal >/= 90 mL/min/1.73m2 Mildly decreased* 60 - 89 mL/min/1.73m2 Mildly to moderately decreased 45 - 59 mL/min/1.73m2 Moderately to severely decreased 30 - 44 mL/min/1.73m2 Severely decreased 15 - 29 mL/min/1.73m2 Kidney Failure < 15 mL/min/1.73m2 *Relative to young adult level If -[place] multiply value by 1.16. Estimated glomerular filtration [...] BLOOD ORDERABLES Final Resul t [facility] ([place]) 1 [facility] Department of Laboratories [place], [place] [id number] * (ABNORMAL) Serum lipid panel (04/07/2013 8:45 PM [employer]) LDL 54 0 - 129 mg/dl HISTORICAL [...] revised on 2007. Serum 04/07/2013 8:45 PM [employer] Edgar Pratt MD LAB BLOOD ORDERABLES Final Resul t HISTORICAL RESULTS from Last 3 Months or Most Recently Relevant to Health Maintenance Insurance [facility] CHOICE PLUS [facility] CHOICE PLUS [facility] CHOICE PLUS Care Teams Thumb Sewer Relationship Specialty Start Date End Date Giorgio Lee MD PCP - General 06/04/16
--- OUTSIDE RECORDS SUMMARY | 2024-05-29 13:27 | XMS_ITS | Encounter Summary ---
Author Organization [facility] Address [address] [place] [address] Care Team Providers Care Workplace Rehabilitation Officer Name Role Phone Giorgio Lee MD Primary Care Provider [phone] Giorgio Lee MD Primary Care Provider [phone] Giorgio Lee MD Primary Care Provider [phone] Encounter Details Date Type Department Care Team (Late st Contact Info) Description 04/24/2012 Orders Only [facility] Health Information Management [address] [place] [address] Scanning, Provider Social History Tobacco Use Types Packs/Day Years Used Date Smoking Tobacco: Never Assessed Sex and Gender Information Value Date Recorded Sex Assigned at Not on file 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
--- OUTSIDE RECORDS SUMMARY | 2024-05-29 13:27 | XMS_ITS | Clinical Summary ---
Author Organization [facility] Address [address] [place] [phone] Phone Care Team Providers Care Head Scorer Name Role Phone WILIAM PHILLIPS, LUCY JUNG Unavailable [phone] Reason for Visit and Chief Complaint * PHONE CALL Problems Includes: Problems addressed during this encounter and other active Problems Current Visit Onset Date Resolved Date Provider Conditio n Status Major Depression, Recurrent 07/19/2012 LUCY STILL MD Active Last Documented On 3 5:16PM ; [facility] Restless Legs Syndrome 07/19/2012 LUCY ALVAREZ MD Active Last Documented On 3 4:33PM ; [facility] Obsessive Compulsive Disorder 03/08/2012 BRADLEY STILL MD Active Last Documented On 0 10:00AM ; [facility] Generalized Anxiety Disorder 03/08/2012 LUCY STILL MD Active Last Documented On 3 2:58PM ; [facility] Obsessive Compulsive Disorder 03/08/2012 BRADLEY STILL MD Inactive Last Documented On 7 9:03PM ; [facility] Past Visits Onset Date Resolved Date Provider Condition Status Narcolepsy 10/05/2014 LUCY STILL MD Ac tive Last Documented On 5 6:20AM ; [facility] Diabetes Mellitus 07/19/2012 LUCY Oleary MD Active Last Documented On 3 4:47PM ; [facility] 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 Nahed STILL MD Active Last Documented On 3 5:05PM ; [facility] [place] 03/08/2012 LUCY STILL MD Ac tive Last Documented On 3 2:55PM ; [facility] Hyperlipidemia 03/08/2012 LUCY Archibald Active Last Documented On 3 2:56PM ; [facility] Nephrolithiasis 03/08/2012 LUCY STILL MD Active Last Documented On 3 2:58PM ; [facility] Plan of Treatment No Plan of Treatment Recorded Assessments Includes: Assessments from this encounter Findings - Restless legs syndrome - Last Documented On 03/17/2021 2:57PM ; [facility] - Major depression, recurrent - Last Documented On 03/17/2021 2:57PM ; [facility] - Generalized anxiety disorder - Last Documented On 03/17/2021 2:57PM ; [facility] - Obsessive compulsive disorder - Last Documented On 03/17/2021 2:57PM ; [facility] Medical Equipment - Implanted Devices Includes: Current Devices No Medical Equipment Recorded Medications Includes: Medications discussed during this encounter and other current Medications Current Medications (continue as prescribed) Paxil 40 MG Oral Tablet 06/23/2022 Provider: BRIONNA STILL MD Diagnosis: Obsessive-compul sive disorder, unspecified TAKE 1 AND 1/2 TABLETS BY [facility] DAILY DIRECTED Last Documented On 06/23/2022 5:34PM By Yajaira Still MD ; [facility] Gemtesa 75 MG Oral Tablet 06/23/2022 Provider: Diagnosis: 1 tab daily Last Documented On 06/23/2022 4:50PM By ELISEO BARCENAS ; [facility] Januvia 100 MG Oral Tablet 10/02/2021 Provider: Diagnosis: 1 tab daily Last Documented On 12/23/2021 4:46PM By ELISEO BARCENAS ; [facility] FeroSul 325 (65 Fe) MG Oral Tablet 05/28/2021 Provid er: Diagnosis: 1 tab daily Last Documented On 06/16/2021 4:55PM By ELISEO BARCENAS ; [facility] EPINEPHrine 0.3 MG/0.3ML Injection Solution Auto-injec tor 2020 Provider: Diagnosis: use as directed Last Documented On 12/18/2020 4:48PM By ELISEO BARCENAS ; [facility] Pramipexole Dihydrochloride 1 MG Oral Tablet 06/06/2020 Provider: NICOLA Archibald Diagnosis: patient takes 0.75 mg at bedtime Last Documented On 06/19/2020 4:58PM By ELISEO BARCENAS ; [facility] Rosuvastatin Calcium 10 MG Oral Tablet 06/18/2019 Pr ovider: NICOLA ANAYA MD Diagnosis: one tablet daily Last Documented On 06/20/2019 4:49PM By JENNIFER CARMICHAEL ; [facility] Modafinil 200MG Oral Tablet 07/24/2018 Provider: LUCY STILL MD Diagnosis: Obstructive slee p apnea (adult) (pediatric) as directed -- 1 tab in am Last Documented On 07/24/2018 7:44AM By Yajaira Still MD ; [facility] Amphetamine-Dextroamphetamin e 30 MG Tablet 01/01/2016 Provider: LUCY STILL MD Diagnosis: Sleep apnea, unspecified as directed Take 1/2 tablet in am and 1/2 tab at 2: 30 pm Last Documented On 01/01/2016 5:30PM By Yajaira Still MD ; [facility] [place] Vitamin D-3 1000 UNIT Tablet 01/01/2015 Provider: Diagnosis: Last Documented On 01/01/2015 2:20PM By Yajaira Still MD ; [facility] Fish Oil 1200 MG OR CAPS 01/17/2013 Provider: Diagnosis: Last Documented On 3 4:44PM By VALENTINO BARCENAS ; [facility] metFORMIN HCl 1000 MG TABS 07/19/2012 Provider: Diagnosis: Last Documented On 3 4:51PM By VALENTINO GOLD ; [facility] Omeprazole 20 MG OR CPDR 03/08/2012 Provider: Diagnosis: Last Documented On 3 2:55PM By VALENTINO GOLD ; [facility] Suspended Medications busPIRone HCl 15 MG Oral Tablet 06/23/2022 Provider: LUCY STILL MD Diagnosis: Generalized anxi ety disorder One tablet twice a day Last Documented On 06/23/2022 5:36PM By Yajaira Still MD ; [facility] Past Medications on file busPIRone HCl 7.5 MG OR TABS 03/17/2018 - 04/16/2018 P rovider: Diagnosis: Major depressive disorder, recurrent, moderate 2 tablets twice a day Last Documented On 03/17/2018 9:59AM By ELISEO BARCENAS ; [facility] Nuvigil 250 MG Tablet 03/31/2015 - 04/14/2015 Provider: LUCY TOMAS MD Diagnosis: Obstructive slee p apnea (adult) (pediatric) 1 tablet every morning --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 Cipro Allergy 12/20/2018 Active Last Documented On 06/21/2023 4:56PM ; [facility] Note: Imported from external source. Cipro Allergy Hives / Urticaria 12/20/2018 R esolved Last Documented On 4:47PM ; [facility] Aspartame Allergy Skin Rashes / Eruption of skin 06/29/2018 Active Last Documented On 06/21/2023 4:56PM ; [facility] Note: Imported from external source. Encounters Encounter Provider Location Date Check-In Time Check-Out Time Diagnosis * PHONE CALL LUCY STILL MD [facility] 03/17/19 22 2:40PM 11:59PM Major Depression, Recurrent,Gene ralized Anxiety Disorder,Obses sive Compulsive Disorder,Restl ess Legs Syndrome Insurance Includes: Active Insurance Policies Plan Name Member ID Group # Subscriber Relationship Effect refugio Dates 1 - [facility] [id number] MARYAM MUNOZ 03/10/2020 - Unknown Clinical Notes Includes: Clinical Notes from this encounter No Clinical Notes Recorded
--- OUTSIDE RECORDS SUMMARY | 2024-05-29 13:27 | XMS_ITS ---
Care Plan - [facility] Created on: May 29, 2024 CHUY MUNOZ : 1965 Sex: Male Author Organization [facility] Address [address] [place] [address] Phone Care Team Providers Care Hat Designer Name Role Phone WILIAM PHILLIPS, LUCY JUNG [facility] [phone]
--- OUTSIDE RECORDS SUMMARY | 2024-05-29 13:27 | XMS_ITS ---
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 Last Documented On 3 5:45PM ; [facility] Major Depression, Recurrent 07/19/2012 Active Last Documented On 3 5:45PM ; [facility] Restless Legs Syndrome 07/19/2012 Ac tive Last Documented On 3 5:45PM ; [facility] Obsessive Compulsive Disorder 03/08/2012 Active Last Documented On 3 5:50PM ; [facility] Generalized Anxiety Disorder 03/08/2012 Active Last Documented On 3 5:42PM ; [facility] Gerd 03/08/2012 Active Last Documented On 3 5:42PM ; [facility] Hyperlipidemia 03/08/2012 Active Last Documented On 3 5:42PM ; [facility] Obsessive Compulsive Disorder 03/08/2012 Inactive Last Documented On 3 5:42PM ; [facility] Nephrolithiasis 03/08/2012 Active Last Documented On 3 5:42PM ; [facility] Plan of Treatment Future Appointments Date Time Location Provi conrad TELEHEALTH ADULT PSYCH ESTABLISHED 06/20/2024 4:40PM [facility] STILL MD Last Documented On 4 5:56PM ; [facility] Education and Decision Aids were provided during visit for: Discussed good sleep hygiene habits Last Documented On 3 6:40PM ; [facility] Assessments Includes: Assessments for all patient encounters Findings Encounter Date Generalized anxiety disorder TELEHEALTH ADULT PSYCH ESTABLISHED with LUCY STILL MD 06/21/2023 Last Documented On 4 8:45PM ; [facility] Major depression, recurrent TELEHEALTH A DULT PSYCH ESTABLISHED with LUCY STILL MD 06/21/2023 Last Documented On 4 8:45PM ; [facility] Narcolepsy TELEHEALTH ADULT PSYCH ESTABLISH ED with LUCY STILL MD 06/21/2023 Last Documented On 4 8:45PM ; [facility] Obsessive compulsive disorder TELEHEALTH ADULT PSYCH ESTABLISHED with LUCY STILL MD 06/21/2023 Last Documented On 4 8:45PM ; [facility] Obstructive sleep apnea TELEHEALTH ADULT PSYCH ESTABLISHED with LUCY STILL MD 06/21/2023 Last Documented On 4 8:45PM ; [facility] Restless legs syndrome TELEHEALTH ADULT PSYCH ESTABLISHED with LUCY STILL MD 06/21/2023 Last Documented On 4 8:45PM ; [facility] Generalized anxiety disorder TELEHEALTH ADULT PSYCH ESTABLISHED with LUCY STILL MD 12/23/2022 Last Documented On 3 12:30PM ; [facility] Major depression, recurrent TELEHEALTH A DULT PSYCH ESTABLISHED with LUCY STILL MD 12/23/2022 Last Documented On 3 12:30PM ; [facility] Narcolepsy TELEHEALTH ADULT PSYCH ESTABLISH ED with LUCY STILL MD 12/23/2022 Last Documented On 3 12:30PM ; [facility] Obsessive compulsive disorder TELEHEALTH ADULT PSYCH ESTABLISHED with LUCY STILL MD 12/23/2022 Last Documented On 3 12:30PM ; [facility] Obstructive sleep apnea TELEHEALTH ADULT PSYCH ESTABLISHED with LUCY STILL MD 12/23/2022 Last Documented On 3 12:30PM ; [facility] Restless legs syndrome TELEHEALTH ADULT PSYCH ESTABLISHED with LUCY STILL MD 12/23/2022 Last Documented On 3 12:30PM ; [facility] Instructions Includes: Instructions for all patient encounters Education and Decision Aids were provided during visit for: Discussed good sleep hygiene habits Last Documented On 3 6:40PM ; [facility] Medical Equipment - Implanted Devices Includes: Current and historical Devices No Medical Equipment Recorded Medications Includes: Current and historical Medications Current Medications (continue as prescribed) Paxil 40 MG Oral Tablet 06/21/2023 Provider: BRIONNA STILL MD Diagnosis: Obsessive-compul sive disorder, unspecified TAKE 1 AND 1/2 TABLETS BY EFREM KING DAILY DIRECTED Last Documented On 06/21/2023 5:42PM By Yajaira Still MD ; [facility] busPIRone HCl 15 MG Oral Tablet 06/20/2023 Provider: LUCY STILL MD Diagnosis: Generalized anxi ety disorder One tablet twice a day Last Documented On 06/20/2023 10:49AM By Yajaira Still MD ; [facility] Pramipexole Dihydrochloride 1 MG Oral Tablet 04/20/2023 Provider: NICOLA Archibald Diagnosis: 1 and 1/2 tab in the evening Last Documented On 06/21/2023 5:48PM By Yajaira Still MD ; [facility] Fish Oil 1200 MG Oral Capsule 12/23/2022 Provider: Diagnosis: 3 caps daily Last Documented On 12/23/2022 4:48PM By ELISEO BARCENAS ; [facility] oxyBUTYnin Chloride ER 15 MG Oral Tablet Extended Release 24 Hour 11/15/2022 Provider: RAFITA RUGGIERO MD Diagnosis: 1 tab daily Last Documented On 12/23/2022 4:48PM By ELISEO BARCENAS ; [facility] Januvia 100 MG OR TABS 10/02/2021 Provider: Diagnosis: 1 tab daily Last Documented On 07/03/2022 5:27PM By ELISEO BARCENAS ; [facility] FeroSul 325 (65 Fe) MG OR TABS 05/28/2021 Provider: Diagnosis: 1 tab daily Last Documented On 07/03/2022 5:27PM By ELISEO BARCENAS ; [facility] EPINEPHrine 0.3 MG/0.3ML IJ SOAJ 2020 Provider : Diagnosis: use as directed Last Documented On 07/03/2022 5:27PM By ELISEO BARCENAS ; [facility] Rosuvastatin Calcium 10 MG OR TABS 06/18/2019 Provid er: Diagnosis: one tablet daily Last Documented On 07/03/2022 5:27PM By JENNIFER CARMICHAEL ; [facility] Modafinil 200 MG OR TABS 07/24/2018 Provider: MET SHELDON STILL MD Diagnosis: Obstructive slee p apnea (adult) (pediatric) as directed -- 1 tab in am Last Documented On 07/03/2022 5:27PM By Yajaira Still MD ; [facility] Amphetamine-Dextroamphetamin e 30 MG OR TABS 01/01/2016 Provider: LUCY STILL MD Diagnosis: Sleep apnea, unspecified as directed Take 1/2 tablet in am and 1/2 tab at 2: 30 pm Last Documented On 07/03/2022 5:27PM By Yajaira Still MD ; [facility] PA Vitamin D-3 25 MCG (1000 UT) OR TABS 01/01/2015 P rovider: Diagnosis: Last Documented On 07/03/2022 5:27PM By Yajaira Still MD ; [facility] metFORMIN HCl 1000 MG TABS 07/19/2012 Provider: Diagnosis: Last Documented On 07/03/2022 5:27PM By VALENTINO GOLD ; [facility] Omeprazole 20 MG OR CPDR 03/08/2012 Provider: Diagnosis: Last Documented On 07/03/2022 5:27PM By VALENTINO GOLD ; [facility] Past Medications on file Paxil 40 MG OR TABS 06/23/2022 - 06/21/2023 Provider: LUCY STILL MD Diagnosis: Obsessive-compul sive disorder, unspecified TAKE 1 AND 1/2 TABLETS BY [facility] DAILY DIRECTED Last Documented On 06/21/2023 5:42PM By Yajaira Still MD ; [facility] busPIRone HCl 15 MG OR TABS 06/23/2022 - 06/20/2023 Provider: LUCY STILL MD Diagnosis: Generalized anxi ety disorder One tablet twice a day Last Documented On 06/20/2023 10:48AM By Yajaira Still MD ; [facility] Gemtesa 75 MG OR TABS 06/23/2022 - 12/23/2022 Provider : Diagnosis: 1 tab daily Last Documented On 12/23/2022 4:48PM By ELISEO BARCENAS ; [facility] busPIRone HCl 15 MG OR TABS 06/16/2021 - 06/23/2022 Provider: LUCY STILL MD Diagnosis: Generalized anxi ety disorder One tablet twice a day Last Documented On 07/03/2022 5:27PM By Yajaira Still MD ; [facility] Paxil 40 MG OR TABS 06/16/2021 - 06/23/2022 Provider: LUCY STILL MD Diagnosis: Obsessive-compul sive disorder, unspecified TAKE 1 AND 1/2 TABLETS BY [facility] DAILY DIRECTED Last Documented On 07/03/2022 5:27PM By Yajaira Still MD ; [facility] Myrbetriq 25 MG OR TB24 06/06/2020 - 06/23/2022 Provid er: Diagnosis: 1 tab daily Last Documented On 07/03/2022 5:27PM By ELISEO BARCENAS ; [facility] Pramipexole Dihydrochloride 1 MG OR TABS 06/06/2020 - 06/21/2023 Provider: Diagnosis: patient takes 0.75 mg at bedtime Last Documented On 06/21/2023 5:48PM By Yajaira Still MD ; [facility] Paxil 40 MG OR TABS 03/19/2020 - 06/16/2021 Provider: LUYC STILL MD Diagnosis: Obsessive-compul sive disorder, unspecified TAKE 1 AND 1/2 TABLETS BY [facility] DAILY DIRECTED Last Documented On 07/03/2022 5:27PM By Yajaira Still MD ; [facility] Paxil 40 MG OR TABS 10/08/2019 - 03/19/2020 Provider: LUCY STILL MD Diagnosis: Obsessive-compul sive disorder, unspecified TAKE 1 AND 1/2 TABLETS BY [facility] DAILY DIRECTED Last Documented On 07/03/2022 5:27PM By Yajaira Still MD ; [facility] busPIRone HCl 15 MG OR TABS 07/11/2019 - 06/16/2021 Provider: LUCY STILL MD Diagnosis: Generalized anxi ety disorder One tablet twice a day Last Documented On 07/03/2022 5:27PM By Yajaira Still MD ; [facility] Paxil 40 MG OR TABS 04/18/2019 - 10/08/2019 Provider: ULCY STILL MD Diagnosis: Obsessive-compul sive disorder, unspecified TAKE 1 AND 1/2 TABLETS BY [facility] DAILY DIRECTED Last Documented On 07/03/2022 5:27PM By Yajaira Still MD ; [facility] busPIRone HCl 15 MG OR TABS 11/03/2018 - 06/20/2019 Provider: LUCY STILL MD Diagnosis: Generalized anxi ety disorder One tablet twice a day Last Documented On 07/03/2022 5:27PM By Yajaira Still MD ; [facility] Paxil 40 MG OR TABS 11/01/2018 - 04/18/2019 Provider: LUCY STILL MD Diagnosis: Obsessive-compul sive disorder, unspecified TAKE 1 AND 1/2 TABLETS BY MO [facility] DAILY DIRECTED Last Documented On 07/03/2022 5:27PM By Yajaira Still MD ; [facility] Paxil 40 MG OR TABS 07/24/2018 - 11/01/2018 Provider: LUCY STILL MD Diagnosis: Obsessive-compul sive disorder, unspecified as directed --1 and 1/2 tab daily Last Documented On 07/03/2022 5:27PM By Yajaira Still MD ; [facility] busPIRone HCl 15 MG OR TABS 06/29/2018 - 11/03/2018 Provider: LUCY STILL MD Diagnosis: Generalized anxi ety disorder One tablet twice a day Last Documented On 07/03/2022 5:27PM By Yajaira Still MD ; [facility] busPIRone HCl 7.5 MG OR TABS 03/17/2018 - 12/20/2018 Provider: LUCY STILL MD Diagnosis: Major depressive disorder, recurrent, moderate as directed 2 tablets twice a day Last Documented On 07/03/2022 5:27PM By Yajaira Still MD ; [facility] busPIRone HCl 7.5 MG OR TABS 03/17/2018 - 04/16/2018 P leathader: Diagnosis: Major depressive disorder, recurrent, moderate 2 tablets twice a day Last Documented On 07/03/2022 5:27PM By ELISEO BARCENAS ; [facility] Modafinil 200 MG OR TABS 12/30/2017 - 06/29/2018 Provider: LUCY STILL MD Diagnosis: Obstructive slee p apnea (adult) (pediatric) as directed -- 1 tab in am Last Documented On 07/03/2022 5:27PM By Yajaira Still MD ; [facility] Paxil 40 MG OR TABS 12/30/2017 - 06/29/2018 Provider: LUCY STILL MD Diagnosis: Obsessive-compul sive disorder, unspecified as directed --1 and 1/2 tab daily Last Documented On 07/03/2022 5:27PM By Yajaira Still MD ; [facility] Paxil 40 MG OR TABS 12/29/2017 - 12/29/2017 Provider: LUCY STILL MD Diagnosis: Major depressive disorder, recurrent, moderate as directed --1 and 1/2 tab daily Last Documented On 07/03/2022 5:27PM By Yajaira Still MD ; [facility] busPIRone HCl 15 MG OR TABS 12/29/2017 - 06/29/2018 Provider: LUCY STILL MD Diagnosis: Generalized anxi ety disorder One tablet twice a day Last Documented On 07/03/2022 5:27PM By Yajaira Still MD ; [facility] PARoxetine HCl 40 MG OR TABS 07/04/2017 - 11/01/2018 Provider: LUCY STILL MD Diagnosis: Major depressive disorder, recurrent, moderate One tablet daily Last Documented On 07/03/2022 5:27PM By Yajaira Still MD ; [facility] Modafinil 200 MG OR TABS 07/04/2017 - 12/29/2017 Provider: LUCY STILL MD Diagnosis: Obstructive slee p apnea (adult) (pediatric) as directed -- 1 tab in am - - given by Dr. Conroy Last Documented On 07/03/2022 5:27PM By Yajaira Still MD ; [facility] busPIRone HCl 15 MG OR TABS 06/29/2017 - 12/29/2017 Provider: LUCY STILL MD Diagnosis: Generalized anxi ety disorder One tablet twice a day Last Documented On 07/03/2022 5:27PM By Yajaira Still MD ; [facility] PARoxetine HCl 40 MG OR TABS 04/26/2017 - 06/29/2017 Provider: LUCY STILL MD Diagnosis: Major depressive disorder, recurrent, moderate One tablet daily Last Documented On 07/03/2022 5:27PM By Yajaira Still MD ; [facility] Modafinil 200 MG OR TABS 01/01/2017 - 06/29/2017 Provider: LUCY STILL MD Diagnosis: Obstructive slee p apnea (adult) (pediatric) as directed -- 1 tab in am - - given by Dr. Conroy Last Documented On 07/03/2022 5:27PM By Yajaira Still MD ; [facility] Tamsulosin HCl 0.4 MG OR CAPS 01/01/2017 - 06/29/2017 Provider: Diagnosis: Last Documented On 07/03/2022 5:27PM By Yajaira Still MD ; [facility] oxyBUTYnin Chloride 5 MG OR TABS 01/01/2017 - 06/30/19 Provider: Diagnosis: Last Documented On 07/03/2022 5:27PM By Yajaira Still MD ; [facility] Paxil CR 37.5 MG OR TB24 01/01/2017 - 06/29/2017 Provider: LUCY TOMAS MD Diagnosis: Major depressive disorder, recurrent, unspecified Take 1 tablet by mouth twice a day Last Documented On 07/03/2022 5:27PM By Yajaira Still MD ; [facility] busPIRone HCl 15 MG OR TABS 12/30/2016 - 06/29/2017 Provider: LUCY STILL MD Diagnosis: Generalized anxi ety disorder One tablet twice a day Last Documented On 07/03/2022 5:27PM By Yajaira Still MD ; [facility] Paxil CR 37.5 MG OR TB24 11/08/2016 - 12/30/2016 Provider: LUCY TOMAS MD Diagnosis: Major depressive disorder, recurrent, unspecified Take 1 tablet by mouth twice a day Last Documented On 07/03/2022 5:27PM By Yajaira Still MD ; [facility] Pramipexole Dihydrochloride 0.5 MG OR TABS 09/08/2016 - 06/16/2021 Provider: LUCY STILL MD Diagnosis: Restless legs syndrome as directed 1 and 1/2 tabs a t bedtime --- given by Dr. Conroy Last Documented On 07/03/2022 5:27PM By Yajaira Still MD ; [facility] Modafinil 200 MG OR TABS 09/08/2016 - 12/30/2016 Provider: LUCY STILL MD Diagnosis: Obstructive slee p apnea (adult) (pediatric) as directed -- 1 tab at 2:30 pm -- given by Dr. Conroy Last Documented On 07/03/2022 5:27PM By Yajaira Still MD ; [facility] Paxil CR 37.5 MG OR TB24 06/29/2016 - 11/08/2016 Provider: LUCY TOMAS MD Diagnosis: Major depressive disorder, recurrent, unspecified *BID - One tablet twice a day Last Documented On 07/03/2022 5:27PM By Yajaira Still MD ; [facility] busPIRone HCl 15 MG OR TABS 06/29/2016 - 12/30/2016 Provider: LUCY STILL MD Diagnosis: Generalized anxi ety disorder One tablet twice a day Last Documented On 07/03/2022 5:27PM By Yajaira Still MD ; [facility] Benadryl Allergy 25 MG OR TABS 01/01/2016 - 06/29/2016 Provider: Diagnosis: Take as directed. As needed Last Documented On 07/03/2022 5:27PM By AYDE SIMPSON LPN ; [facility] Paxil CR 37.5 MG OR TB24 01/01/2016 - 06/29/2016 Provider: LUCY TOMAS MD Diagnosis: Major depressive disorder, recurrent, unspecified *BID - One tablet twice a day Last Documented On 07/03/2022 5:27PM By Yajaira Still MD ; [facility] Modafinil 200 MG OR TABS 01/01/2016 - 06/29/2016 Provider: LUCY STILL MD Diagnosis: Obstructive slee p apnea (adult) (pediatric) as directed -- 1 tab at 2:30 pm -- given by Dr. Conroy Last Documented On 07/03/2022 5:27PM By Yajaira Still MD ; [facility] busPIRone HCl 15 MG OR TABS 01/01/2016 - 06/29/2016 Provider: LUCY STILL MD Diagnosis: Generalized anxi ety disorder One tablet twice a day Last Documented On 07/03/2022 5:27PM By Yajaira Still MD ; [facility] Paxil CR 37.5 MG OR TB24 12/12/2015 - 01/01/2016 Provider: LUCY TOMAS MD Diagnosis: Major depressive disorder, recurrent, unspecified *BID - One tablet twice a day Last Documented On 07/03/2022 5:27PM By Yajaira Still MD ; [facility] Modafinil 200 MG OR TABS 12/03/2015 - 01/01/2016 Provi conrad: Diagnosis: 1 daily Last Documented On 07/03/2022 5:27PM By AYDE SIMPSON LPN ; [facility] busPIRone HCl 15 MG OR TABS 10/29/2015 - 01/01/2016 Provider: LUCY STILL MD Diagnosis: Generalized anxi ety disorder One tablet twice a day Last Documented On 07/03/2022 5:27PM By Yajaira Still MD ; [facility] Nuvigil 200 MG OR TABS 07/01/2015 - 01/01/2016 Provider: LUCY STILL MD Diagnosis: Obstructive slee p apnea (adult) (pediatric) 1 tablet every morning --giv en discount voucher on 07/01/15 but was prescribed by Dr. Lee (PCP) Last Documented On 07/03/2022 5:27PM By Yajaira Still MD ; [facility] busPIRone HCl 15 MG OR TABS 07/01/2015 - 10/29/2015 Provider: LUCY STILL MD Diagnosis: Generalized anxi ety disorder One tablet twice a day Last Documented On 07/03/2022 5:27PM By Yajaira Still MD ; [facility] Paxil CR 37.5 MG OR TB24 07/01/2015 - 12/12/2015 Provider: LUCY TOMAS MD Diagnosis: Major depressive disorder, recurrent, unspecified *BID - One tablet twice a day Last Documented On 07/03/2022 5:27PM By Yajaira Still MD ; [facility] Nuvigil 200 MG OR TABS 06/05/2015 - 01/01/2016 Provide r: Diagnosis: 1 tablet daily Last Documented On 07/03/2022 5:27PM By AYDE SIMPSON LPN ; [facility] Modafinil 200 MG OR TABS 03/31/2015 - 07/01/2015 Provider: LUCY STILL MD Diagnosis: Obstructive slee p apnea (adult) (pediatric) as directed --1 tab in am and 1 tab at noon Last Documented On 07/03/2022 5:27PM By Yajaira Still MD ; [facility] Nuvigil 250 MG OR TABS 03/31/2015 - 04/14/2015 Provider: LUCY TOMAS MD Diagnosis: Obstructive slee p apnea (adult) (pediatric) 1 tablet every morning --14 samples for fruit or nut picker 03/31/15 Last Documented On 07/03/2022 5:27PM By Yajaira Still MD ; [facility] busPIRone HCl 15 MG OR TABS 03/20/2015 - 07/01/2015 Provider: LUCY STILL MD Diagnosis: Generalized anxi ety disorder One tablet twice a day Last Documented On 07/03/2022 5:27PM By Yajaira Still MD ; [facility] Paxil CR 37.5 MG OR TB24 03/20/2015 - 07/01/2015 Provider: LUCY TOMAS MD Diagnosis: Major depressive disorder, recurrent, unspecified *BID - One tablet twice a day Last Documented On 07/03/2022 5:27PM By Yajaira Still MD ; [facility] HM Vitamin B12 500 MCG OR TABS 01/01/2015 - 07/01/2015 Provider: Diagnosis: Take 1 tablet by mouth daily Last Documented On 07/03/2022 5:27PM By AYDE SIMPSON LPN ; [facility] Amphetamine-Dextroamphetamin e 30 MG OR TABS 01/01/2015 - 01/01/2016 Provider: Diagnosis: Sleep apnea, unspecified Take 1/2 tablet by mouth twice a day Last Documented On 07/03/2022 5:27PM By AYDE SIMPSON LPN ; [facility] Pramipexole Dihydrochloride 0.5 MG OR TABS 01/01/2015 - 06/29/2016 Provider: LUCY STILL MD Diagnosis: Restless legs syndrome as directed 1 and 1/2 tabs a t bedtime --- given by Dr. Conroy Last Documented On 07/03/2022 5:27PM By Yajaira Still MD ; [facility] busPIRone HCl 15 MG OR TABS 01/01/2015 - 03/20/2015 Provider: LUCY STILL MD Diagnosis: Generalized anxi ety disorder One tablet twice a day Last Documented On 07/03/2022 5:27PM By Yajaira Still MD ; [facility] Paxil CR 37.5 MG OR TB24 01/01/2015 - 03/20/2015 Provider: LUCY TOMAS MD Diagnosis: Major depressive disorder, recurrent, unspecified *BID - One tablet twice a day Last Documented On 07/03/2022 5:27PM By Yajaira Still MD ; [facility] Modafinil 200 MG OR TABS 01/01/2015 - 07/01/2015 Provider: LUCY STILL MD Diagnosis: Obstructive slee p apnea (adult) (pediatric) as directed 2 in the morning -- refilled by Dr. Conroy Last Documented On 07/03/2022 5:27PM By Yajaira Still MD ; [facility] Dialyvite Vitamin D 5000 125 MCG (5000 UT) OR CAPS 01/01/2015 - 01/01/2015 Provider: Diagnosis: Take 1 capsule by mouth weekly Last Documented On 07/03/2022 5:27PM By AYDE SIMPSON LPN ; [facility] HM Vitamin B12 1000 MCG OR TBCR 01/01/2015 - 6 Provider: Diagnosis: Last Documented On 07/03/2022 5:27PM By Yajaira Still MD ; [facility] Paxil CR 37.5 MG OR TB24 12/13/2014 - 01/01/2015 Provider: LUCY TOMAS MD Diagnosis: Major depressive disorder, recurrent, unspecified *BID - One tablet twice a day Last Documented On 07/03/2022 5:27PM By Yajaira Still MD ; [facility] Modafinil 200 MG OR TABS 07/29/2014 - 01/01/2015 Provider: LUCY STILL MD Diagnosis: OBSTRUCTIVE SLEE P APNEA as directed 2 in the morning -- refilled by Dr. Conroy Last Documented On 07/03/2022 5:27PM By Yajaira Still MD ; [facility] Paxil CR 37.5 MG OR TB24 07/18/2014 - 12/13/2014 Provider: LUCY TOMAS MD Diagnosis: MAJOR DEPRESSION DISORDER/RECURRENT *BID - One tablet twice a day Last Documented On 07/03/2022 5:27PM By Yajaira Still MD ; [facility] busPIRone HCl 15 MG OR TABS 07/18/2014 - 01/01/2015 Provider: LUCY STILL MD Diagnosis: GENERALIZED ANXI ETY DIS One tablet twice a day Last Documented On 07/03/2022 5:27PM By Yajaira Still MD ; [facility] Modafinil 200 MG OR TABS 01/18/2014 - 07/18/2014 Provider: LUCY STILL MD Diagnosis: OBSTRUCTIVE SLEE P APNEA 2 in the morning -- refilled by Dr. Conroy Last Documented On 07/03/2022 5:27PM By Yajaira Still MD ; [facility] Paxil CR 37.5 MG OR TB24 01/18/2014 - 07/18/2014 Provider: LUCY TOMAS MD Diagnosis: MAJOR DEPRESSION DISORDER/RECURRENT refilled last 12/27/13 for 3 refills Last Documented On 07/03/2022 5:27PM By Yajaira Still MD ; [facility] busPIRone HCl 15 MG OR TABS 01/18/2014 - 07/18/2014 Provider: LUCY STILL MD Diagnosis: GENERALIZED ANXI ETY DIS Last Documented On 07/03/2022 5:27PM By Yajaira Still MD ; [facility] Pramipexole Dihydrochloride 0.5 MG OR TABS 07/17/2013 - 01/01/2015 Provider: LUCY STILL MD Diagnosis: Restless Legs Syndrome 1 and 1/2 tabs at bedtime --- given by Dr. Conroy Last Documented On 07/03/2022 5:27PM By Yajaira Still MD ; [facility] Zantac 75 75 MG OR TABS 07/17/2013 - 07/01/2015 Provid er: Diagnosis: Last Documented On 07/03/2022 5:27PM By Yajaira Still MD ; [facility] ZyrTEC Allergy 10 MG OR TABS 07/17/2013 - 01/01/2016 P rovider: Diagnosis: Last Documented On 07/03/2022 5:27PM By Yajaira Still MD ; [facility] busPIRone HCl 15 MG OR TABS 07/17/2013 - 01/18/2014 Provider: LUCY STILL MD Diagnosis: GENERALIZED ANXI ETY DIS Last Documented On 07/03/2022 5:27PM By Yajaira Still MD ; [facility] Modafinil 200 MG OR TABS 07/17/2013 - 01/18/2014 Provider: LUCY STILL MD Diagnosis: OBSTRUCTIVE SLEE P APNEA 2 in the morning Last Documented On 07/03/2022 5:27PM By Yajaira Still MD ; [facility] Paxil CR 37.5 MG OR TB24 07/17/2013 - 01/18/2014 Provider: LUCY TOMAS MD Diagnosis: MAJOR DEPRESSION DISORDER/RECURRENT Last Documented On 07/03/2022 5:27PM By Yajaira Still MD ; [facility] busPIRone HCl 15 MG OR TABS 01/17/2013 - 07/17/2013 Provider: LUCY STILL MD Diagnosis: GENERALIZED ANXI ETY DIS Last Documented On 07/03/2022 5:27PM By Yajaira Still MD ; [facility] Fish Oil 1200 MG OR CAPS 01/17/2013 - 12/23/2022 Provi conrad: Diagnosis: Last Documented On 12/23/2022 4:48PM By ELISEO BARCENAS ; [facility] Paxil CR 37.5 MG OR TB24 01/17/2013 - 07/17/2013 Provider: LUCY TOMAS MD Diagnosis: MAJOR DEPRESSION DISORDER/RECURRENT Last Documented On 07/03/2022 5:27PM By Yajaira Still MD ; [facility] Modafinil 200 MG OR TABS 01/17/2013 - 07/17/2013 Provider: LUCY STILL MD Diagnosis: OBSTRUCTIVE SLEE P APNEA 2 in the morning Last Documented On 07/03/2022 5:27PM By Yajaira Still MD ; [facility] Paxil CR 37.5 MG OR TB24 07/19/2012 - 01/17/2013 Provider: LUCY TOMAS MD Diagnosis: DEPRESS PSYCHOSI S-MILD Last Documented On 07/03/2022 5:27PM By Yajaira Still MD ; [facility] Lovaza 1 GM OR CAPS 07/19/2012 - 01/17/2013 Provider: Diagnosis: 3 caps at bedtime Last Documented On 07/03/2022 5:27PM By VALENTINO GOLD ; [facility] Aspirin 81 MG OR TABS 07/19/2012 - 07/17/2013 Provider : Diagnosis: Last Documented On 07/03/2022 5:27PM By VALENTINO GOLD ; [facility] Pramipexole Dihydrochloride 0.5 MG OR TABS 07/19/2012 - 07/19/2012 Provider: Diagnosis: 1 and 1/2 tabs at bedtime Last Documented On 07/03/2022 5:27PM By VALENTINO GOLD ; [facility] Potassium Citrate ER 10 MEQ (1080 MG) OR TBCR 07/20/19 13 - 07/18/2014 Provider: Diagnosis: 2 tabs every morning Last Documented On 07/03/2022 5:27PM By VALENTINO GOLD ; [facility] busPIRone HCl 15 MG OR TABS 07/19/2012 - 01/17/2013 Provider: LUCY STILL MD Diagnosis: GENERALIZED ANXI ETY DIS Last Documented On 07/03/2022 5:27PM By Yajaira Still MD ; [facility] Pramipexole Dihydrochloride 0.5 MG OR TABS 07/19/2012 - 07/17/2013 Provider: LUCY STILL MD Diagnosis: Restless Legs Syndrome 1 and 1/2 tabs at bedtime --- given by Dr. Conroy Last Documented On 07/03/2022 5:27PM By Yajaira Still MD ; [facility] Modafinil 200 MG OR TABS 07/19/2012 - 01/17/2013 Provider: LUCY STILL MD Diagnosis: OBSTRUCTIVE SLEE P APNEA 2 in the morning Last Documented On 07/03/2022 5:27PM By Yajaira Still MD ; [facility] Chlorthalidone 25 MG OR TABS 03/08/2012 - 01/01/2016 P leathader: Diagnosis: Last Documented On 07/03/2022 5:27PM By VALENTINO GOLD ; [facility] busPIRone HCl 15 MG OR TABS 03/08/2012 - 07/19/2012 Pr ovider: Diagnosis: as needed Last Documented On 07/03/2022 5:27PM By VALENTINO GOLD ; [facility] Paxil CR 37.5 MG OR TB24 03/08/2012 - 07/19/2012 Provi conrad: Diagnosis: Last Documented On 07/03/2022 5:27PM By VALENTINO GOLD ; [facility] Crestor 10 MG OR TABS 03/08/2012 - 12/19/2019 Provider : Diagnosis: Last Documented On 07/03/2022 5:27PM By VALENTINO GOLD ; [facility] Modafinil 200 MG OR TABS 03/08/2012 - 07/19/2012 Provi conrad: Diagnosis: 1 and 1 half in the morning Last Documented On 07/03/2022 5:27PM By VALENTINO GOLD ; [facility] Niaspan 500 MG OR TBCR 03/08/2012 - 01/17/2013 Provide r: Diagnosis: Last Documented On 07/03/2022 5:27PM By VALENTINO GOLD ; [facility] Medications Administered Includes: Administered Medications in patient's chart No Administered Medications Recorded Vital Signs Includes: Vital Signs from 05/30/2023 through 05/29/2024 Vital Name 06/21/2023 04:58P Blood Pressure Sitting L 108/72 BP Cuff Size Regular Pulse Rate-Sitting (bpm) 86 Pulse Rhythm Regular Height (in) 67.5 Weight (lb) 176 Body Mass Index 27.2 Body Surface Area 1.9 Note: self reported vitals Last Documented: On 06/21/2023 4:59PM ; [facility] Results Includes: Results from 05/30/2023 through 05/29/2024 No Results Recorded For Specified Dates History of Present Illness History of Present Illness not supported for this document type No History of Present Illness Recorded Social History Description Last Updated Tobacco non-user 06/21/2023 Last Documented On 8:45PM ; [facility] Smoking Status Unknown Procedures and Surgical History Includes: Procedures from 05/30/2023 through 05/29/2024 Procedures Code Diagnosis Performing Provider Service Location Service Date PSYCHOTHERAPY 30 MIN W/ [place] [address] Major depressive disorder, recurrent, moderate, Generalized anxiety disorder, Restless legs syndrome, Narcolepsy without cataplexy LUCY STILL MD [facility]-PSY 06/21/2023 Last Documented On 4 4:04PM ; [facility] Medical History Includes: Medical History [...] Active Last Documented On 06/21/2023 4:56PM ; [facility] Note: Imported from external source. Cipro Allergy 12/20/2018 Active Last Documented On 06/21/2023 4:56PM ; [facility] Note: Imported from external source. Cipro Allergy Hives / Urticaria 12/20/2018 R esolved Last Documented On 3 4:47PM ; [facility] Aspartame Allergy Skin Rashes / Eruption of skin 06/29/2018 Active Last Documented On 06/21/2023 4:56PM ; [facility] Note: Imported from external source. Encounters Includes: Encounters from 05/30/2023 through 05/29/2024 Encounter Provider Location Date Check-In Time Check-Out Time Diagnosis [facility] EST[facility]LISHED LUCY STILL MD [facility] 06/21/19 24 4:45PM 01/19/2012 11:59PM Major Depression, Recurrent,Gene ralized Anxiety Disorder,Obses sive Compulsive Disorder,Narco lepsy,Restless Legs Syndrome,Nonor ganic Sleep Apnea Obstructive Insurance Includes: Active Insurance Policies Plan Name Member ID Group # Subscriber Relationship Effect refugio Dates 1 - [facility] [id number] MARYAM MUNOZ 03/10/2020 - Unknown Clinical Notes Includes: Signed Clinical Notes starting from 03/26/2022 * Progress note Date Encounter Last Documented by 06/21/2023 [facility] EST[facility] ED Last documented on 07/11/2023; 8:45 PM, LUCY STILL MD; [facility] Top of Document Medication [...] go for a trip to [place] [facility] and [place]. Once they landed in [place] last 03/26/2023 he felt sick and was [...] Primary Care Provider: Dr. Nicola Lee -- [place] Dr. Sukhdev Lujan -- Neurologist Dr. Rafita Salguero/Dr. Víctor Pichardo -Urologist -- [facility] Dr. Stephan Osuna -- Ophthamologist. Dr. Ron Richards -- Director Acute Diagnoses: mosquito-like bites or red spots on [...] -- 09/2014, another lithotripsy done 12/17/16 -- [facility] (Dr. Pichardo) -- 06/2017 stones removed, 11/2017 stones removed at [facility] -- passed kidney stone at home 11/2018. Overactive bladder - and urge to urinate -- given Myrbetriq 25 mg and given Tamsulosin 0.4 mg 04/30/22 and 02/01/22. Hyperlipidemia. Diabetes mellitus. Contact dermatitis -- he took a steroid, antibiotic, benadryl. Arthritis - right hand -- appointment with Dr. Eduard Bañuelos [facility]. Restless legs syndrome. Narcolepsy --Dr. Conroy added Adderall 11/2014. Allergic reaction - unknown origin -- hospitalized at [facility] 09/27/20 -- given Epipen and Prednisone 10 [...] PREVIOUS PSYCHIATRIC HOSPITALIZATIONS: He was treated at [facility] by Dr. Radames Boyer from [id number]. PREVIOUS PSYCHIATRIC TREATMENT: Dr. Radames Boyer from [id number]. PREVIOUS PSYCHIATRIC MEDICATIONS: Anafranil-caused weight gain Prozac, which he took for 2 years. These were given by Dr. Radames Boyer from [place]. Social History Tobacco use: Tobacco non-user. Caffeine use: No coffee consumption -- He drinks 1 can of diet soda and 1 glass of tea a day. Tobacco use: Smoking status: Never smoker. Alcohol: Not using alcohol. Drug Use: Not using drugs (Illicit). Work: Work history [employer] in [place], [place]. Marital: Marital history -- . He [...] Clinical summary provided to patient. * Call [phone] and /or go to the nearest emergency [...] now sees a different sleep specialist in [place], [place] Dr. Lujan -- Modafinil 200 mg [...]
--- OUTSIDE RECORDS SUMMARY | 2024-05-29 13:27 | XMS_ITS ---
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 Nahed STILL MD Active Last Documented On 3 5:05PM ; [facility] Major Depression, Recurrent 07/19/2012 LUCY STILL MD Active Last Documented On 3 5:16PM ; [facility] Restless Legs Syndrome 07/19/2012 LUCY ALVAREZ MD Active Last Documented On 3 4:33PM ; [facility] Obsessive Compulsive Disorder 03/08/2012 BRADLEY STILL MD Active Last Documented On 0 10:00AM ; [facility] Generalized Anxiety Disorder 03/08/2012 LUCY STILL MD Active Last Documented On 3 2:58PM ; [facility] 03/08/2012 LUCY STILL MD Ac tive Last Documented On 3 2:55PM ; [facility] Hyperlipidemia 03/08/2012 LUCY Archibald Active Last Documented On 3 2:56PM ; [facility] Obsessive Compulsive Disorder 03/08/2012 BRADLEY STILL MD Inactive Last Documented On 7 9:03PM ; [facility] Nephrolithiasis 03/08/2012 LUCY STILL MD Active Last Documented On 3 2:58PM ; [facility] Plan of Treatment Instructions to patient Lose weight Last Documented On 1 4:49PM ; [facility] Lose weight Last Documented On 1 4:56PM ; [facility] Education and Decision Aids were provided during visit for: Patient education about medi cation ---Education was given on medication(s) and diagnosis. I reviewed the risks, benefits and side effects of patient's medications Last Documented On 3 4:33PM ; [facility] Patient education about medi cation ---Education was given on medication(s) and diagnosis. I reviewed the risks, benefits and side effects of patient's medications. Pt reported no side effects with meds Last Documented On 2 7:18PM ; [facility] Patient education about medi cation --- I educated patient on medication(s) and diagnosis. I reviewed the risks, benefits and side effects of patient's medications Last Documented On 2 4:43PM ; [facility] Discussed calming techniques such as breathing exercises and other relaxation techniques Last Documented On 2 4:43PM ; [facility] Counseling for nutrition/rodrigo ght management provided Last Documented On 2 4:55PM ; [facility] Patient education about medi cation --- I educated patient on medication(s) and diagnosis. I reviewed the risks, benefits and side effects of patient's medications Last Documented On 1 4:34PM ; [facility] Discussed calming techniques such as breathing exercises and other relaxation techniques Last Documented On 1 4:34PM ; [facility] Counseling for nutrition/rodrigo ght management provided Last Documented On 1 4:49PM ; [facility] Patient education about medi cation --- I educated patient on medication(s) and diagnosis. I reviewed the risks, benefits and side effects of patient's medications Last Documented On 1 4:39PM ; [facility] Discussed calming techniques such as breathing exercises and other relaxation techniques Last Documented On 1 4:39PM ; [facility] Counseling for nutrition/rodrigo ght management provided Last Documented On 1 4:56PM ; [facility] Patient education about medi cation --- I educated patient on medication(s) and diagnosis. I reviewed the risks, benefits and side effects of patient's medications Last Documented On 0 4:36PM ; [facility] Discussed calming techniques such as breathing exercises and other relaxation techniques Last Documented On 0 4:36PM ; [facility] Counseling for nutrition/rodrigo ght management provided Last Documented On 0 4:51PM ; [facility] Patient education about a pr oper diet Last Documented On 0 8:27AM ; [facility] Patient education about medi cation --- I educated patient on medication(s) and diagnosis. I reviewed the risks, benefits and side effects of patient's medications Last Documented On 0 4:39PM ; [facility] Discussed calming techniques such as breathing exercises and other relaxation techniques Last Documented On 0 4:39PM ; [facility] Patient education about a pr oper diet Last Documented On 9 4:47PM ; [facility] Patient education about medi cation --- I educated patient on medication(s) and diagnosis. I reviewed the risks, benefits and side effects of patient's medications Last Documented On 9 4:34PM ; [facility] Discussed calming techniques such as breathing exercises and other relaxation techniques Last Documented On 9 4:34PM ; [facility] Patient education about a pr oper diet Last Documented On 9 4:52PM ; [facility] Patient education about medi cation --- I educated patient on medication(s) and diagnosis. I reviewed the risks, benefits and side effects of patient's medications Last Documented On 9 4:31PM ; [facility] Discussed calming techniques such as breathing exercises and other relaxation techniques Last Documented On 9 4:31PM ; [facility] Counseling for nutrition/rodrigo ght management provided Last Documented On 9 4:52PM ; [facility] Patient education about a pr oper diet Last Documented On 8 4:33PM ; [facility] Patient education about medi cation --- I educated patient on medication(s) and diagnosis. I reviewed the risks, benefits and side effects of patient's medications Last Documented On 8 4:32PM ; [facility] Counseling for nutrition/rodrigo ght management provided Last Documented On 8 2:20PM ; [facility] Discussed good sleep hygiene habits --was encouraged not to stay up late at night Last Documented On 8 2:20PM ; [facility] Patient education about medi cation --- I educated patient on medication(s) and diagnosis. I reviewed the risks, benefits and side effects of patient's medications Last Documented On 8 4:38PM ; [facility] Discussed calming techniques such as breathing exercises and other relaxation techniques Last Documented On 8 4:38PM ; [facility] Counseling for nutrition/rodrigo ght management provided Last Documented On 8 7:11AM ; [facility] Patient education about medi cation --- I educated patient on medication(s) and diagnosis. I reviewed the risks, benefits and side effects of patient's medications Last Documented On 7 4:32PM ; [facility] Discussed calming techniques such as breathing exercises and other relaxation techniques Last Documented On 7 4:32PM ; [facility] Counseling for nutrition/rodrigo ght management provided Last Documented On 7 8:56AM ; [facility] Patient education about medi cation --- I educated patient on medication(s) and diagnosis. I reviewed the risks, benefits and side effects of patient's medications Last Documented On 7 4:34PM ; [facility] Discussed calming techniques such as breathing exercises/meditation and other relaxation techniques Last Documented On 7 4:34PM ; [facility] Counseling for nutrition/rodrigo ght management provided Last Documented On 7 12:10PM ; [facility] Patient education about medi cation --- I educated patient on medication(s) and diagnosis. I reviewed the risks, benefits and side effects of patient's medications Last Documented On 6 4:32PM ; [facility] Discussed calming techniques such as breathing exercises/meditation and other relaxation techniques Last Documented On 6 4:32PM ; [facility] Counseling for nutrition/rodrigo ght management provided Last Documented On 6 9:43AM ; [facility] Patient education about medi cation --- I educated patient on medication(s) and diagnosis. I reviewed the risks, benefits and side effects of patient's medications Last Documented On 6 4:34PM ; [facility] Discussed calming techniques such as breathing exercises/meditation and other relaxation techniques Last Documented On 6 4:34PM ; [facility] Counseling for nutrition/rodrigo ght management provided Last Documented On 6 5:44PM ; [facility] Patient education about medi cation --- I educated patient on medication(s) and diagnosis. I reviewed the risks, benefits and side effects of patient's medications Last Documented On 5 2:03PM ; [facility] Discussed calming techniques such as breathing exercises/meditation and other relaxation techniques Last Documented On 5 2:03PM ; [facility] Counseling for nutrition/rodrigo ght management provided Last Documented On 5 6:24AM ; [facility] Discussed good sleep hygiene habits Last Documented On 5 6:24AM ; [facility] Patient education about medi cation --- I educated patient on medication(s) and diagnosis. I reviewed the risks, benefits and side effects of patient's medications Last Documented On 5 6:30PM ; [facility] Discussed calming techniques such as breathing exercises/meditation and other relaxation techniques Last Documented On 5 4:34PM ; [facility] Counseling for nutrition/rodrigo ght management provided Last Documented On 5 5:33PM ; [facility] Patient education about medi cation --- I educated patient on medication(s) and diagnosis. I reviewed the risks, benefits and side effects of patient's medications Last Documented On 4 6:15PM ; [facility] Discussed calming techniques such as breathing exercises/meditation and other relaxation techniques Last Documented On 4 4:38PM ; [facility] Counseling for nutrition/rodrigo ght management provided Last Documented On 4 6:15PM ; [facility] Patient education about medi cation --- I educated patient on medication(s) and diagnosis. I reviewed the risks, benefits and side effects of patient's medications Last Documented On 4 11:38PM ; [facility] Discussed calming techniques such as breathing exercises/meditation and other relaxation techniques Last Documented On 4 4:36PM ; [facility] Counseling for nutrition/rodrigo ght management provided Last Documented On 4 11:38PM ; [facility] Patient education about medi cation --- I educated patient on medication(s) and diagnosis Last Documented On 3 7:02PM ; [facility] Discussed calming techniques such as breathing exercises/meditation and other relaxation techniques Last Documented On 3 4:30PM ; [facility] Discussed calming techniques such as breathing exercises/meditation and other relaxation techniques Last Documented On 3 4:32PM ; [facility] Assessments Includes: Assessments for all patient encounters Findings Encounter Date Generalized anxiety disorder TELEHEALTH with MET SHELDON STILL MD 06/23/2022 Last Documented On 3 8:00AM ; [facility] Major depression, recurrent TELEHEALTH with BRIONNA STILL MD 06/23/2022 Last Documented On 3 8:00AM ; [facility] Obsessive compulsive disorder TELEHEALTH with ME EMANI STILL MD 06/23/2022 Last Documented On 3 8:00AM ; [facility] Restless legs syndrome TELEHEALTH with LUCY STILL MD 06/23/2022 Last Documented On 3 8:00AM ; [facility] Generalized anxiety disorder TELEHEALTH with MET SHELDON STILL MD 12/23/2021 Last Documented On 2 7:20PM ; [facility] Major depression, recurrent TELEHEALTH with BRIONNA STILL MD 12/23/2021 Last Documented On 2 7:20PM ; [facility] Obsessive compulsive disorder TELEHEALTH with ME EMANI STILL MD 12/23/2021 Last Documented On 2 7:20PM ; [facility] Restless legs syndrome TELEHEALTH with LUCY STILL MD 12/23/2021 Last Documented On 2 7:20PM ; [facility] Generalized anxiety disorder TELEHEALTH with MET SHELDON STILL MD 06/16/2021 Last Documented On 2 10:34AM ; [facility] Major depression, recurrent TELEHEALTH with BRIONNA STILL MD 06/16/2021 Last Documented On 2 10:34AM ; [facility] Obsessive compulsive disorder TELEHEALTH with ME EMANI STILL MD 06/16/2021 Last Documented On 2 10:34AM ; [facility] Restless legs syndrome TELEHEALTH with LUCY STILL MD 06/16/2021 Last Documented On 2 10:34AM ; [facility] Generalized anxiety disorder * PHONE CALL with Nahed STILL MD 03/17/2021 Last Documented On 2 2:57PM ; [facility] Major depression, recurrent * PHONE CALL with ME EMANI STILL MD 03/17/2021 Last Documented On 2 2:57PM ; [facility] Obsessive compulsive disorder * PHONE CALL with LUCY STILL MD 03/17/2021 Last Documented On 2 2:57PM ; [facility] Restless legs syndrome * PHONE CALL with LUCY STILL MD 03/17/2021 Last Documented On 2 2:57PM ; [facility] Generalized anxiety disorder TELEHEALTH with MET SHELDON STILL MD 12/18/2020 Last Documented On 1 8:13AM ; [facility] Major depression, recurrent TELEHEALTH with BRIONNA STILL MD 12/18/2020 Last Documented On 1 8:13AM ; [facility] Obsessive compulsive disorder TELEHEALTH with ME EMANI STILL MD 12/18/2020 Last Documented On 1 8:13AM ; [facility] Restless legs syndrome TELEHEALTH with LUCY STILL MD 12/18/2020 Last Documented On 1 8:13AM ; [facility] Generalized anxiety disorder TELEHEALTH with MET SHELDON STILL MD 06/19/2020 Last Documented On 1 9:21AM ; [facility] Major depression, recurrent TELEHEALTH with BRIONNA STILL MD 06/19/2020 Last Documented On 1 9:21AM ; [facility] Obsessive compulsive disorder TELEHEALTH with ME EMANI STILL MD 06/19/2020 Last Documented On 1 9:21AM ; [facility] Restless legs syndrome TELEHEALTH with LUCY STILL MD 06/19/2020 Last Documented On 1 9:21AM ; [facility] Generalized anxiety disorder TELEHEALTH with MET SHELDON STILL MD 12/20/2019 Last Documented On 1 11:49PM ; [facility] Major depression, recurrent TELEHEALTH with BRIONNA STILL MD 12/20/2019 Last Documented On 1 11:49PM ; [facility] Obsessive compulsive disorder TELEHEALTH with ME EMANI STILL MD 12/20/2019 Last Documented On 1 11:49PM ; [facility] Restless legs syndrome TELEHEALTH with LUCY STILL MD 12/20/2019 Last Documented On 1 11:49PM ; [facility] Generalized anxiety disorder TELEHEALTH with MET SHELDON STILL MD 06/20/2019 Last Documented On 0 8:36AM ; [facility] Major depression, recurrent TELEHEALTH with BRIONNA STILL MD 06/20/2019 Last Documented On 0 8:36AM ; [facility] Obsessive compulsive disorder TELEHEALTH with ME EMANI STILL MD 06/20/2019 Last Documented On 0 8:36AM ; [facility] Restless legs syndrome TELEHEALTH with LUCY STILL MD 06/20/2019 Last Documented On 0 8:36AM ; [facility] Generalized anxiety disorder GENERAL OFF ICE VISIT with LUCY STILL MD 12/20/2018 Last Documented On 9 6:10PM ; [facility] Major depression, recurrent GENERAL OFFI CE VISIT with LUCY STILL MD 12/20/2018 Last Documented On 9 6:10PM ; [facility] Obsessive compulsive disorder GENERAL OF FICE VISIT with LUCY STILL MD 12/20/2018 Last Documented On 9 6:10PM ; [facility] Obstructive sleep apnea GENERAL OFFICE VISIT wit h LUCY STILL MD 12/20/2018 Last Documented On 9 6:10PM ; [facility] Generalized anxiety disorder GENERAL OFF ICE VISIT with LUCY STILL MD 06/29/2018 Last Documented On 9 7:45AM ; [facility] Major depression, recurrent GENERAL OFFI CE VISIT with LUCY STILL MD 06/29/2018 Last Documented On 9 7:45AM ; [facility] Obsessive compulsive disorder GENERAL OF FICE VISIT with LUCY STILL MD 06/29/2018 Last Documented On 9 7:45AM ; [facility] Obstructive sleep apnea GENERAL OFFICE VISIT wit h LUCY STILL MD 06/29/2018 Last Documented On 9 7:45AM ; [facility] Generalized anxiety disorder GENERAL OFF ICE VISIT with LUCY STILL MD 12/29/2017 Last Documented On 8 2:27PM ; [facility] Major depression, recurrent GENERAL OFFI CE VISIT with LUCY STILL MD 12/29/2017 Last Documented On 8 2:27PM ; [facility] Obsessive compulsive disorder GENERAL OF FICE VISIT with LUCY STILL MD 12/29/2017 Last Documented On 8 2:27PM ; [facility] Obstructive sleep apnea GENERAL OFFICE VISIT wit h LUCY STILL MD 12/29/2017 Last Documented On 8 2:27PM ; [facility] Generalized anxiety disorder GENERAL OFF ICE VISIT with LUCY STILL MD 06/29/2017 Last Documented On 8 7:12AM ; [facility] Major depression, recurrent GENERAL OFFI CE VISIT with LUCY STILL MD 06/29/2017 Last Documented On 8 7:12AM ; [facility] Obsessive compulsive disorder GENERAL OF FICE VISIT with LUCY STILL MD 06/29/2017 Last Documented On 8 7:12AM ; [facility] Obstructive sleep apnea GENERAL OFFICE VISIT wit LUCY STILL MD 06/29/2017 Last Documented On 8 7:12AM ; [facility] Major depression, recurrent * PHONE CALL with ME EMANI STILL MD 04/26/2017 Last Documented On 8 6:21PM ; [facility] Generalized anxiety disorder GENERAL OFF ICE VISIT with LUCY STILL MD 12/30/2016 Last Documented On 7 9:36AM ; [facility] Major depression, recurrent GENERAL OFFI CE VISIT with LUCY STILL MD 12/30/2016 Last Documented On 7 9:36AM ; [facility] Obsessive compulsive disorder GENERAL OF FICE VISIT with LUCY STILL MD 12/30/2016 Last Documented On 7 9:36AM ; [facility] Obstructive sleep apnea GENERAL OFFICE VISIT wit h LUCY STILL MD 12/30/2016 Last Documented On 7 9:36AM ; [facility] Generalized anxiety disorder GENERAL OFF ICE VISIT with LUCY STILL MD 06/29/2016 Last Documented On 7 12:21PM ; [facility] Major depression, recurrent GENERAL OFFI CE VISIT with LUCY STILL MD 06/29/2016 Last Documented On 7 12:21PM ; [facility] Obsessive compulsive disorder GENERAL OF FICE VISIT with LUCY STILL MD 06/29/2016 Last Documented On 7 12:21PM ; [facility] Obstructive sleep apnea GENERAL OFFICE VISIT wit h LUCY STILL MD 06/29/2016 Last Documented On 7 12:21PM ; [facility] Generalized anxiety disorder GENERAL OFF ICE VISIT with LUCY STILL MD 01/01/2016 Last Documented On 6 9:45AM ; [facility] Major depression, recurrent GENERAL OFFI CE VISIT with LUCY STILL MD 01/01/2016 Last Documented On 6 9:45AM ; [facility] Obsessive compulsive disorder GENERAL OF FICE VISIT with LUCY STILL MD 01/01/2016 Last Documented On 6 9:45AM ; [facility] Obstructive sleep apnea GENERAL OFFICE VISIT wit h LUCY STILL MD 01/01/2016 Last Documented On 6 9:45AM ; [facility] Generalized anxiety disorder GENERAL OFF ICE VISIT with LUCY STILL MD 07/01/2015 Last Documented On 6 7:59PM ; [facility] Major depression, recurrent GENERAL OFFI CE VISIT with LUCY STILL MD 07/01/2015 Last Documented On 6 7:59PM ; [facility] Obsessive compulsive disorder GENERAL OF FICE VISIT with LUCY STILL MD 07/01/2015 Last Documented On 6 7:59PM ; [facility] Obstructive sleep apnea GENERAL OFFICE VISIT wit h LUCY STILL MD 07/01/2015 Last Documented On 6 7:59PM ; [facility] Obstructive sleep apnea SECURE MESSAGE with AK EMANI STILL MD 03/31/2015 Last Documented On 6 1:09PM ; [facility] Generalized anxiety disorder GENERAL OFF ICE VISIT with LUCY STILL MD 01/01/2015 Last Documented On 5 6:30AM ; [facility] Major depression, recurrent GENERAL OFFI CE VISIT with LUCY STILL MD 01/01/2015 Last Documented On 5 6:30AM ; [facility] Obsessive compulsive disorder GENERAL OF FICE VISIT with LUCY STILL MD 01/01/2015 Last Documented On 5 6:30AM ; [facility] Obstructive sleep apnea GENERAL OFFICE VISIT wit h LUCY STILL MD 01/01/2015 Last Documented On 5 6:30AM ; [facility] Generalized anxiety disorder GENERAL OFF ICE VISIT with LUCY STILL MD 07/18/2014 Last Documented On 5 6:36PM ; [facility] Major depression, recurrent GENERAL OFFI CE VISIT with LUCY STILL MD 07/18/2014 Last Documented On 5 6:36PM ; [facility] Obsessive compulsive disorder GENERAL OF FICE VISIT with LUCY STILL MD 07/18/2014 Last Documented On 5 6:36PM ; [facility] Obstructive sleep apnea GENERAL OFFICE VISIT wit h LUCY STILL MD 07/18/2014 Last Documented On 5 6:36PM ; [facility] Generalized anxiety disorder GENERAL OFF ICE VISIT with LUCY STILL MD 01/18/2014 Last Documented On 4 6:16PM ; [facility] Major depression, recurrent GENERAL OFFI CE VISIT with LUCY STILL MD 01/18/2014 Last Documented On 4 6:16PM ; [facility] Obsessive compulsive disorder GENERAL OF FICE VISIT with LUCY STILL MD 01/18/2014 Last Documented On 4 6:16PM ; [facility] Obstructive sleep apnea GENERAL OFFICE VISIT wit h LUCY STILL MD 01/18/2014 Last Documented On 4 6:16PM ; [facility] GENERAL OFF ICE VISIT with LUCY STILL MD 07/17/2013 Last Documented On 4 11:39PM ; [facility] Major depression, recurrent GENERAL OFFI CE VISIT with LUCY STILL MD 07/17/2013 Last Documented On 4 11:39PM ; [facility] Obsessive compulsive disorder GENERAL OF FICE VISIT with LUCY STILL MD 07/17/2013 Last Documented On 4 11:39PM ; [facility] Obstructive sleep apnea GENERAL OFFICE VISIT wit h LUCY STILL MD 07/17/2013 Last Documented On 4 11:39PM ; [facility] Generalized anxiety disorder GENERAL OFF ICE VISIT with LUCY STILL MD 01/17/2013 Last Documented On 3 7:21PM ; [facility] Major depression, recurrent GENERAL OFFI CE VISIT with LUCY STILL MD 01/17/2013 Last Documented On 3 7:21PM ; [facility] Obsessive compulsive disorder GENERAL OF FICE VISIT with LUCY STILL MD 01/17/2013 Last Documented On 3 7:21PM ; [facility] Obstructive sleep apnea GENERAL OFFICE VISIT wit h LUCY STILL MD 01/17/2013 Last Documented On 3 7:21PM ; [facility] Restless legs syndrome GENERAL OFFICE VISIT with LUCY STILL MD 01/17/2013 Last Documented On 3 7:21PM ; [facility] Generalized anxiety disorder GENERAL OFF ICE VISIT with LUCY STILL MD 07/19/2012 Last Documented On 3 5:41PM ; [facility] Major depression, recurrent GENERAL OFFI CE VISIT with LUCY STILL MD 07/19/2012 Last Documented On 3 5:41PM ; [facility] Obsessive compulsive disorder GENERAL OF FICE VISIT with LUCY STILL MD 07/19/2012 Last Documented On 3 5:41PM ; [facility] Obstructive sleep apnea GENERAL OFFICE VISIT wit h LUCY STILL MD 07/19/2012 Last Documented On 3 5:41PM ; [facility] Restless legs syndrome GENERAL OFFICE VISIT with LUCY STILL MD 07/19/2012 Last Documented On 3 5:41PM ; [facility] Instructions Includes: Instructions for all patient encounters Instructions to patient Lose weight Last Documented On 1 4:49PM ; [facility] Lose weight Last Documented On 1 4:56PM ; [facility] Education and Decision Aids were provided during visit for: Patient education about medi cation ---Education was given on medication(s) and diagnosis. I reviewed the risks, benefits and side effects of patient's medications Last Documented On 3 4:33PM ; [facility] Patient education about medi cation ---Education was given on medication(s) and diagnosis. I reviewed the risks, benefits and side effects of patient's medications. Pt reported no side effects with meds Last Documented On 2 7:18PM ; [facility] Patient education about medi cation --- I educated patient on medication(s) and diagnosis. I reviewed the risks, benefits and side effects of patient's medications Last Documented On 2 4:43PM ; [facility] Discussed calming techniques such as breathing exercises and other relaxation techniques Last Documented On 2 4:43PM ; [facility] Counseling for nutrition/rodrigo ght management provided Last Documented On 2 4:55PM ; [facility] Patient education about medi cation --- I educated patient on medication(s) and diagnosis. I reviewed the risks, benefits and side effects of patient's medications Last Documented On 1 4:34PM ; [facility] Discussed calming techniques such as breathing exercises and other relaxation techniques Last Documented On 1 4:34PM ; [facility] Counseling for nutrition/rodrigo ght management provided Last Documented On 1 4:49PM ; [facility] Patient education about medi cation --- I educated patient on medication(s) and diagnosis. I reviewed the risks, benefits and side effects of patient's medications Last Documented On 1 4:39PM ; [facility] Discussed calming techniques such as breathing exercises and other relaxation techniques Last Documented On 1 4:39PM ; [facility] Counseling for nutrition/rodrigo ght management provided Last Documented On 1 4:56PM ; [facility] Patient education about medi cation --- I educated patient on medication(s) and diagnosis. I reviewed the risks, benefits and side effects of patient's medications Last Documented On 0 4:36PM ; [facility] Discussed calming techniques such as breathing exercises and other relaxation techniques Last Documented On 0 4:36PM ; [facility] Counseling for nutrition/rodrigo ght management provided Last Documented On 0 4:51PM ; [facility] Patient education about a pr oper diet Last Documented On 0 8:27AM ; [facility] Patient education about medi cation --- I educated patient on medication(s) and diagnosis. I reviewed the risks, benefits and side effects of patient's medications Last Documented On 0 4:39PM ; [facility] Discussed calming techniques such as breathing exercises and other relaxation techniques Last Documented On 0 4:39PM ; [facility] Patient education about a pr oper diet Last Documented On 9 4:47PM ; [facility] Patient education about medi cation --- I educated patient on medication(s) and diagnosis. I reviewed the risks, benefits and side effects of patient's medications Last Documented On 9 4:34PM ; [facility] Discussed calming techniques such as breathing exercises and other relaxation techniques Last Documented On 9 4:34PM ; [facility] Patient education about a pr oper diet Last Documented On 9 4:52PM ; [facility] Patient education about medi cation --- I educated patient on medication(s) and diagnosis. I reviewed the risks, benefits and side effects of patient's medications Last Documented On 9 4:31PM ; [facility] Discussed calming techniques such as breathing exercises and other relaxation techniques Last Documented On 9 4:31PM ; [facility] Counseling for nutrition/rodrigo ght management provided Last Documented On 9 4:52PM ; [facility] Patient education about a pr oper diet Last Documented On 8 4:33PM ; [facility] Patient education about medi cation --- I educated patient on medication(s) and diagnosis. I reviewed the risks, benefits and side effects of patient's medications Last Documented On 8 4:32PM ; [facility] Counseling for nutrition/rodrigo ght management provided Last Documented On 8 2:20PM ; [facility] Discussed good sleep hygiene habits --was encouraged not to stay up late at night Last Documented On 8 2:20PM ; [facility] Patient education about medi cation --- I educated patient on medication(s) and diagnosis. I reviewed the risks, benefits and side effects of patient's medications Last Documented On 8 4:38PM ; [facility] Discussed calming techniques such as breathing exercises and other relaxation techniques Last Documented On 8 4:38PM ; [facility] Counseling for nutrition/rodrigo ght management provided Last Documented On 8 7:11AM ; [facility] Patient education about medi cation --- I educated patient on medication(s) and diagnosis. I reviewed the risks, benefits and side effects of patient's medications Last Documented On 7 4:32PM ; [facility] Discussed calming techniques such as breathing exercises and other relaxation techniques Last Documented On 7 4:32PM ; [facility] Counseling for nutrition/rodrigo ght management provided Last Documented On 7 8:56AM ; [facility] Patient education about medi cation --- I educated patient on medication(s) and diagnosis. I reviewed the risks, benefits and side effects of patient's medications Last Documented On 7 4:34PM ; [facility] Discussed calming techniques such as breathing exercises/meditation and other relaxation techniques Last Documented On 7 4:34PM ; [facility] Counseling for nutrition/rodrigo ght management provided Last Documented On 7 12:10PM ; [facility] Patient education about medi cation --- I educated patient on medication(s) and diagnosis. I reviewed the risks, benefits and side effects of patient's medications Last Documented On 6 4:32PM ; [facility] Discussed calming techniques such as breathing exercises/meditation and other relaxation techniques Last Documented On 6 4:32PM ; [facility] Counseling for nutrition/rodrigo ght management provided Last Documented On 6 9:43AM ; [facility] Patient education about medi cation --- I educated patient on medication(s) and diagnosis. I reviewed the risks, benefits and side effects of patient's medications Last Documented On 6 4:34PM ; [facility] Discussed calming techniques such as breathing exercises/meditation and other relaxation techniques Last Documented On 6 4:34PM ; [facility] Counseling for nutrition/rodrigo ght management provided Last Documented On 6 5:44PM ; [facility] Patient education about medi cation --- I educated patient on medication(s) and diagnosis. I reviewed the risks, benefits and side effects of patient's medications Last Documented On 5 2:03PM ; [facility] Discussed calming techniques such as breathing exercises/meditation and other relaxation techniques Last Documented On 5 2:03PM ; [facility] Counseling for nutrition/rodrigo ght management provided Last Documented On 5 6:24AM ; [facility] Discussed good sleep hygiene habits Last Documented On 5 6:24AM ; [facility] Patient education about medi cation --- I educated patient on medication(s) and diagnosis. I reviewed the risks, benefits and side effects of patient's medications Last Documented On 5 6:30PM ; [facility] Discussed calming techniques such as breathing exercises/meditation and other relaxation techniques Last Documented On 5 4:34PM ; [facility] Counseling for nutrition/rodrigo ght management provided Last Documented On 5 5:33PM ; [facility] Patient education about medi cation --- I educated patient on medication(s) and diagnosis. I reviewed the risks, benefits and side effects of patient's medications Last Documented On 4 6:15PM ; [facility] Discussed calming techniques such as breathing exercises/meditation and other relaxation techniques Last Documented On 4 4:38PM ; [facility] Counseling for nutrition/rodrigo ght management provided Last Documented On 4 6:15PM ; [facility] Patient education about medi cation --- I educated patient on medication(s) and diagnosis. I reviewed the risks, benefits and side effects of patient's medications Last Documented On 4 11:38PM ; [facility] Discussed calming techniques such as breathing exercises/meditation and other relaxation techniques Last Documented On 4 4:36PM ; [facility] Counseling for nutrition/rodrigo ght management provided Last Documented On 4 11:38PM ; [facility] Patient education about medi cation --- I educated patient on medication(s) and diagnosis Last Documented On 3 7:02PM ; [facility] Discussed calming techniques such as breathing exercises/meditation and other relaxation techniques Last Documented On 3 4:30PM ; [facility] Discussed calming techniques such as breathing exercises/meditation and other relaxation techniques Last Documented On 3 4:32PM ; [facility] Medical Equipment - Implanted Devices Includes: Current and historical Devices No Medical Equipment Recorded Medications Includes: Current and historical Medications Current Medications (continue as prescribed) Paxil 40 MG Oral Tablet 06/23/2022 Provider: BRIONNA STILL MD Diagnosis: Obsessive-compul sive disorder, unspecified TAKE 1 AND 1/2 TABLETS BY [facility] DAILY DIRECTED Last Documented On 06/23/2022 5:34PM By Yajaira Still MD ; [facility] Gemtesa 75 MG Oral Tablet 06/23/2022 Provider: Diagnosis: 1 tab daily Last Documented On 06/23/2022 4:50PM By ELISEO JOHNSTONA ; [facility] Januvia 100 MG Oral Tablet 10/02/2021 Provider: Diagnosis: 1 tab daily Last Documented On 12/23/2021 4:46PM By ELISEO JOHNSTONA ; [facility] FeroSul 325 (65 Fe) MG Oral Tablet 05/28/2021 Provid er: Diagnosis: 1 tab daily Last Documented On 06/16/2021 4:55PM By ELISEO BARCENAS ; [facility] EPINEPHrine 0.3 MG/0.3ML Injection Solution Auto-injec tor 2020 Provider: Diagnosis: use as directed Last Documented On 12/18/2020 4:48PM By ELISEO BARCENAS ; [facility] Pramipexole Dihydrochloride 1 MG Oral Tablet 06/06/2020 Provider: NICOLA Archibald Diagnosis: patient takes 0.75 mg at bedtime Last Documented On 06/19/2020 4:58PM By ELISEO BARCENAS ; [facility] Medical [facility] Rosuvastatin Calcium 10 MG Oral Tablet 06/18/2019 Pr ovider: NICOLA LEE MD Diagnosis: one tablet daily Last Documented On 06/20/2019 4:49PM By JENNIFER CARMICHAEL ; [facility] Modafinil 200MG Oral Tablet 07/24/2018 Provider: LUCY STILL MD Diagnosis: Obstructive slee p apnea (adult) (pediatric) as directed -- 1 tab in am Last Documented On 07/24/2018 7:44AM By Yajaira Still MD ; [facility] Amphetamine-Dextroamphetamin e 30 MG Tablet 01/01/2016 Provider: LUCY STILL MD Diagnosis: Sleep apnea, unspecified as directed Take 1/2 tablet in am and 1/2 tab at 2: 30 pm Last Documented On 01/01/2016 5:30PM By Yajaira Still MD ; [facility] [place] Vitamin D-3 1000 UNIT Tablet 01/01/2015 Provider: Diagnosis: Last Documented On 01/01/2015 2:20PM By Yajaira Still MD ; [facility] Fish Oil 1200 MG OR CAPS 01/17/2013 Provider: Diagnosis: Last Documented On 3 4:44PM By VALENTINO BARCENAS ; [facility] metFORMIN HCl 1000 MG TABS 07/19/2012 Provider: Diagnosis: Last Documented On 3 4:51PM By VALENTINO GOLD ; [facility] Omeprazole 20 MG OR CPDR 03/08/2012 Provider: Diagnosis: Last Documented On 3 2:55PM By VALENTINO GOLD ; [facility] Suspended Medications busPIRone HCl 15 MG Oral Tablet 06/23/2022 Provider: LUCY STILL MD Diagnosis: Generalized anxi ety disorder One tablet twice a day Last Documented On 06/23/2022 5:36PM By Yajaira Still MD ; [facility] Past Medications on file Paxil 40 MG Oral Tablet 06/16/2021 - 06/23/2022 Provider: LUCY STILL MD Diagnosis: Obsessive-compul sive disorder, unspecified TAKE 1 AND 1/2 TABLETS BY [facility] DAILY DIRECTED Last Documented On 06/23/2022 5:34PM By Yajaira Still MD ; [facility] busPIRone HCl 15 MG Oral Tablet 06/16/2021 - 06/23/2022 Provider: LUCY STILL MD Diagnosis: Generalized anxi ety disorder One tablet twice a day Last Documented On 06/23/2022 5:36PM By Yajaira Still MD ; [facility] Myrbetriq 25 MG Oral Tablet Extended Release 24 Hour 06/06/2020 - 06/23/2022 Provider: NICOLA ESPINOZA MD Diagnosis: 1 tab daily Last Documented On 06/23/2022 4:37PM By ELISEO BARCENAS ; [facility] Paxil 40 MG Oral Tablet 03/19/2020 - 06/16/2021 Provider: LUCY STILL MD Diagnosis: Obsessive-compul sive disorder, unspecified TAKE 1 AND 1/2 TABLETS BY [facility] DAILY DIRECTED Last Documented On 06/16/2021 5:25PM By Yajaira Still MD ; [facility] Paxil 40 MG Oral Tablet 10/08/2019 - 03/19/2020 Provider: LUCY STILL MD Diagnosis: Obsessive-compul sive disorder, unspecified TAKE 1 AND 1/2 TABLETS BY MO [facility] DAILY DIRECTED Last Documented On 03/19/2020 9:52AM By Yajaira Still MD ; [facility] busPIRone HCl 15 MG Oral Tablet 07/11/2019 - 06/16/2021 Provider: LUCY STILL MD Diagnosis: Generalized anxi ety disorder One tablet twice a day Last Documented On 06/16/2021 5:27PM By Yajaira Still MD ; [facility] Paxil 40 MG Oral Tablet 04/18/2019 - 10/08/2019 Provider: LUCY STILL MD Diagnosis: Obsessive-compul sive disorder, unspecified TAKE 1 AND 1/2 TABLETS BY [facility] DAILY DIRECTED Last Documented On 10/08/2019 6:56PM By Yajaira Still MD ; [facility] busPIRone HCl 15 MG Oral Tablet 11/03/2018 - 06/20/2019 Provider: LUCY STILL MD Diagnosis: Generalized anxi ety disorder One tablet twice a day Last Documented On 07/11/2019 2:13PM By Yajaira Still MD ; [facility] Paxil 40 MG Oral Tablet 11/01/2018 - 04/18/2019 Provider: LUCY STILL MD Diagnosis: Obsessive-compul sive disorder, unspecified TAKE 1 AND 1/2 TABLETS BY MO [facility] DAILY DIRECTED Last Documented On 04/18/2019 9:34AM By Yajaira Still MD ; [facility] Paxil 40MG Oral Tablet 07/24/2018 - 11/01/2018 Provider: LUCY STILL MD Diagnosis: Obsessive-compul sive disorder, unspecified as directed --1 and 1/2 tab daily Last Documented On 9 10:14AM By Yajaira Still MD ; [facility] busPIRone HCl 15MG Oral Tablet 06/29/2018 - 11/03/2018 Provider: LUCY STILL MD Diagnosis: Generalized anxi ety disorder One tablet twice a day Last Documented On 9 10:39AM By Yajaira Still MD ; [facility] busPIRone HCl 7.5 MG OR TABS 03/17/2018 - 04/16/2018 P rovider: Diagnosis: Major depressive disorder, recurrent, moderate 2 tablets twice a day Last Documented On 03/17/2018 9:59AM By ELISEO BARCENAS ; [facility] BusPIRone HCl 7.5MG Oral Tablet 03/17/2018 - 12/20/2018 Provider: LUCY STILL MD Diagnosis: Major depressive disorder, recurrent, moderate as directed 2 tablets twice a day Last Documented On 12/20/2018 5:20PM By Yajaira Still MD ; [facility] Paxil 40MG Oral Tablet 12/30/2017 - 06/29/2018 Provider: LUCY STILL MD Diagnosis: Obsessive-compul sive disorder, unspecified as directed --1 and 1/2 tab daily Last Documented On 07/24/2018 7:44AM By Yajaira Still MD ; [facility] Modafinil 200MG Oral Tablet 12/30/2017 - 06/29/2018 Provider: LUCY STILL MD Diagnosis: Obstructive slee p apnea (adult) (pediatric) as directed -- 1 tab in am Last Documented On 07/24/2018 7:44AM By Yajaira Still MD ; [facility] Paxil 40MG Oral Tablet 12/29/2017 - 12/29/2017 Provider: LUCY TOMAS MD Diagnosis: Major depressive disorder, recurrent, moderate as directed --1 and 1/2 tab daily Last Documented On 12/30/2017 2:22PM By Yajaira Still MD ; [facility] BusPIRone HCl 15MG Oral Tablet 12/29/2017 - 06/29/2018 Provider: LUCY STILL MD Diagnosis: Generalized anxi ety disorder One tablet twice a day Last Documented On 06/29/2018 5:22PM By Yajaira Still MD ; [facility] Modafinil 200MG Oral Tablet 07/04/2017 - 12/29/2017 Provider: LUCY STILL MD Diagnosis: Obstructive slee p apnea (adult) (pediatric) as directed -- 1 tab in am - - given by Dr. Vela Last Documented On 12/30/2017 2:22PM By Yajaira Still MD ; [facility] PARoxetine HCl 40MG Oral Tablet 07/04/2017 - 11/01/2018 Provider: LUCY STILL MD Diagnosis: Major depressive disorder, recurrent, moderate One tablet daily Last Documented On 01/19/2019 5:20PM By JENNIFER CARMICHAEL ; [facility] BusPIRone HCl 15MG Oral Tablet 06/29/2017 - 12/29/2017 Provider: LUCY STILL MD Diagnosis: Generalized anxi ety disorder One tablet twice a day Last Documented On 12/29/2017 5:06PM By Yajaira Still MD ; [facility] PARoxetine HCl 40MG Oral Tablet 04/26/2017 - 06/29/2017 Provider: LUCY STILL MD Diagnosis: Major depressive disorder, recurrent, moderate One tablet daily Last Documented On 07/04/2017 7:07AM By Yajaira Still MD ; [facility] Paxil CR 37.5MG Oral Tablet Extended Release 24 Hour 01/01/2017 - 06/29/2017 Provider: LUCY STILL MD Diagnosis: Major depressive disorder, recurrent, unspecified Take 1 tablet by mouth twice a day Last Documented On 06/29/2017 4:59PM By Yajaira Still MD ; [facility] Modafinil 200MG Oral Tablet 01/01/2017 - 06/29/2017 Provider: LUCY STILL MD Diagnosis: Obstructive slee p apnea (adult) (pediatric) as directed -- 1 tab in am - - given by Dr. Vela Last Documented On 07/04/2017 7:07AM By Yajaira Still MD ; [facility] Oxybutynin Chloride 5MG Oral Tablet 01/01/2017 - 06/29 Provider: Diagnosis: Last Documented On 06/29/2017 4:59PM By Yajaira Still MD ; [facility] Tamsulosin HCl 0.4MG Oral Capsule 01/01/2017 - 018 Provider: Diagnosis: Last Documented On 06/29/2017 4:58PM By Yajaira Still MD ; [facility] BusPIRone HCl 15MG Oral Tablet 12/30/2016 - 06/29/2017 Provider: LUCY STILL MD Diagnosis: Generalized anxi ety disorder One tablet twice a day Last Documented On 06/29/2017 5:01PM By Yajaira Still MD ; [facility] Paxil CR 37.5MG Oral Tablet Extended Release 24 Hour 11/08/2016 - 12/30/2016 Provider: LUCY STILL MD Diagnosis: Major depressive disorder, recurrent, unspecified Take 1 tablet by mouth twice a day Last Documented On 01/01/2017 9:31AM By Yajaira Still MD ; [facility] Modafinil 200MG Oral Tablet 09/08/2016 - 12/30/2016 Provider: LUCY STILL MD Diagnosis: Obstructive slee p apnea (adult) (pediatric) as directed -- 1 tab at 2:30 pm -- given by Dr. Vela Last Documented On 01/01/2017 9:31AM By Yajaira Still MD ; [facility] Pramipexole Dihydrochloride 0.5MG Oral Tablet 09/08/2016 - 06/16/2021 Provider: LUCY STILL MD Diagnosis: Restless legs syndrome as directed 1 and 1/2 tabs a t bedtime --- given by Dr. Vela Last Documented On 06/16/2021 5:28PM By Yajaira Still MD ; [facility] BusPIRone HCl 15MG Oral Tablet 06/29/2016 - 12/30/2016 Provider: LUCY STILL MD Diagnosis: Generalized anxi ety disorder One tablet twice a day Last Documented On 12/30/2016 5:18PM By Yajaira Still MD ; [facility] Paxil CR 37.5MG Oral Tablet Extended Release 24 Hour 06/29/2016 - 11/08/2016 Provider: LUCY STILL MD Diagnosis: Major depressive disorder, recurrent, unspecified *BID - One tablet twice a day Last Documented On 11/08/2016 4:18PM By Yajaira Still MD ; [facility] Modafinil 200 MG Tablet 01/01/2016 - 06/29/2016 Provider: LUCY STILL MD Diagnosis: Obstructive slee p apnea (adult) (pediatric) as directed -- 1 tab at 2:30 pm -- given by Dr. Vela Last Documented On 7 12:20PM By Yajaira Still MD ; [facility] BusPIRone HCl 15 MG Tablet 01/01/2016 - 06/29/2016 Provider: LUCY STILL MD Diagnosis: Generalized anxi ety disorder One tablet twice a day Last Documented On 06/29/2016 6:22PM By Yajaira Still MD ; [facility] Paxil CR 37.5 MG Tablet, extended-release 24 hour 01/01/2016 - 06/29/2016 Provider: LUCY STILL MD Diagnosis: Major depressive disorder, recurrent, unspecified *BID - One tablet twice a day Last Documented On 06/29/2016 6:24PM By Yajaira Still MD ; [facility] Benadryl Allergy 25 MG Tablet 01/01/2016 - 06/29/2016 Provider: NICOLA LEE MD Diagnosis: Take as directed. As needed Last Documented On 7 4:52PM By AYDE SIMPSON LPN ; [facility] Paxil CR 37.5 MG Tablet Extended Release 24 Hour 12/12/2015 - 01/01/2016 Provider: LUCY STILL MD Diagnosis: Major depressive disorder, recurrent, unspecified *BID - One tablet twice a day Last Documented On 01/01/2016 5:25PM By Yajaira Still MD ; [facility] Modafinil 200 MG Tablet 12/03/2015 - 01/01/2016 Provid er: Diagnosis: 1 daily Last Documented On 01/01/2016 5:30PM By Yajaira Still MD ; [facility] BusPIRone HCl 15 MG Tablet 10/29/2015 - 01/01/2016 Provider: LUCY STILL MD Diagnosis: Generalized anxi ety disorder One tablet twice a day Last Documented On 01/01/2016 5:30PM By Yajaira Still MD ; [facility] Nuvigil 200 MG Tablet 07/01/2015 - 01/01/2016 Provider: LUCY STILL MD Diagnosis: Obstructive slee p apnea (adult) (pediatric) 1 tablet every morning --giv en discount voucher on 07/01/15 but was prescribed by Dr. Lee (PCP) Last Documented On 01/01/2016 4:58PM By Yajaira Still MD ; [facility] Paxil CR 37.5 MG Tablet Extended Release 24 Hour 07/01/2015 - 12/12/2015 Provider: LUCY STILL MD Diagnosis: Major depressive disorder, recurrent, unspecified *BID - One tablet twice a day Last Documented On 12/12/2015 3:07PM By Yajaira Still MD ; [facility] BusPIRone HCl 15 MG Tablet 07/01/2015 - 10/29/2015 Provider: LUCY STILL MD Diagnosis: Generalized anxi ety disorder One tablet twice a day Last Documented On 6 10:32AM By Yajaira Still MD ; [facility] Nuvigil 200 MG Tablet 06/05/2015 - 01/01/2016 Provider : Diagnosis: 1 tablet daily Last Documented On 6 4:44PM By AYDE SIMPSON LPN ; [facility] Modafinil 200 MG Tablet 03/31/2015 - 07/01/2015 Provider: LUCY STILL MD Diagnosis: Obstructive slee p apnea (adult) (pediatric) as directed --1 tab in am and 1 tab at noon Last Documented On 6 4:41PM By AYDE SIMPSON LPN ; [facility] Nuvigil 250 MG Tablet 03/31/2015 - 04/14/2015 Provider: LUCY TOMAS MD Diagnosis: Obstructive slee p apnea (adult) (pediatric) 1 tablet every morning --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 03/31/15 Last Documented On 03/31/2015 1:00PM By Yajaira Still MD ; [facility] Paxil CR 37.5 MG Tablet, extended-release 24 hour 03/20/2015 - 07/01/2015 Provider: LUCY STILL MD Diagnosis: Major depressive disorder, recurrent, unspecified *BID - One tablet twice a day Last Documented On 07/01/2015 5:18PM By Yajaira Still MD ; [facility] BusPIRone HCl 15 MG Tablet 03/20/2015 - 07/01/2015 Provider: LUCY STILL MD Diagnosis: Generalized anxi ety disorder One tablet twice a day Last Documented On 07/01/2015 5:18PM By Yajaira Still MD ; [facility] Modafinil 200 MG Tablet 01/01/2015 - 07/01/2015 Provider: LUCY STILL MD Diagnosis: Obstructive slee p apnea (adult) (pediatric) as directed 2 in the morning -- refilled by Dr. Vela Last Documented On 6 4:42PM By AYDE SIMPSON LPN ; [facility] Paxil CR 37.5 MG Tablet Extended Release 24 Hour 01/01/2015 - 03/20/2015 Provider: LUCY STILL MD Diagnosis: Major depressive disorder, recurrent, unspecified *BID - One tablet twice a day Last Documented On 6 10:45AM By Yajaira Still MD ; [facility] BusPIRone HCl 15 MG Tablet 01/01/2015 - 03/20/2015 Provider: LUCY STILL MD Diagnosis: Generalized anxi ety disorder One tablet twice a day Last Documented On 6 10:45AM By Yajaira Still MD ; [facility] HM Vitamin B12 500 MCG Tablet 01/01/2015 - 07/01/2015 Provider: Diagnosis: Take 1 tablet by mouth daily Last Documented On 6 4:42PM By AYDE SIMPSON LPN ; [facility] HM Vitamin B12 1000 MCG Tablet Extended Release 01/01/2015 - 01/01/2016 Provider: Diagnosis: Last Documented On 01/01/2016 5:17PM By Yajaira Still MD ; [facility] Dialyvite Vitamin D 5000 5000 UNIT Capsule 01/01/2015 - 01/01/2015 Provider: Diagnosis: Take 1 capsule by mouth weekly Last Documented On 01/01/2015 2:21PM By Yajaira Still MD ; [facility] Amphetamine-Dextroamphetamin e 30 MG Tablet 01/01/2015 - 01/01/2016 Provider: GUSTAVO VELA MD Diagnosis: Sleep apnea, unspecified Take 1/2 tablet by mouth twice a day Last Documented On 01/01/2016 5:30PM By Yajaira Still MD ; [facility] Pramipexole Dihydrochloride 0.5 MG Tablet 01/01/2015 - 06/29/2016 Provider: LUCY STILL MD Diagnosis: Restless legs syndrome as directed 1 and 1/2 tabs a t bedtime --- given by Dr. Vela Last Documented On 7 12:20PM By Yajaira Still MD ; [facility] Paxil CR 37.5 MG Tablet Extended Release 24 Hour 12/13/2014 - 01/01/2015 Provider: LUCY STILL MD Diagnosis: Major depressive disorder, recurrent, unspecified *BID - One tablet twice a day Last Documented On 01/01/2015 2:42PM By Yajaira Still MD ; [facility] Modafinil 200 MG Tablet 07/29/2014 - 01/01/2015 Provider: LUCY STILL MD Diagnosis: OBSTRUCTIVE SLEE P APNEA as directed 2 in the morning -- refilled by Dr. Vela Last Documented On 01/01/2015 2:42PM By Yajaira Still MD ; [facility] BusPIRone HCl 15 MG Tablet 07/18/2014 - 01/01/2015 Provider: LUCY STILL MD Diagnosis: GENERALIZED ANXI ETY DIS One tablet twice a day Last Documented On 01/01/2015 2:42PM By Yajaira Still MD ; [facility] Paxil CR 37.5 MG Tablet, extended-release 24 hour 07/18/2014 - 12/13/2014 Provider: LUCY STILL MD Diagnosis: MAJOR DEPRESSION DISORDER/RECURRENT *BID - One tablet twice a day Last Documented On 12/13/2014 9:15AM By Yajaira Still MD ; [facility] busPIRone HCl 15 MG OR TABS 01/18/2014 - 07/18/2014 Provider: LUCY STILL MD Diagnosis: GENERALIZED ANXI ETY DIS Last Documented On 07/18/2014 5:08PM By Yajaira Still MD ; [facility] Paxil CR 37.5 MG OR TB24 01/18/2014 - 07/18/2014 Provider: LUCY TOMAS MD Diagnosis: MAJOR DEPRESSION DISORDER/RECURRENT refilled last 12/27/13 for 3 refills Last Documented On 07/18/2014 5:08PM By Yajaira Still MD ; [facility] Modafinil 200 MG OR TABS 01/18/2014 - 07/18/2014 Provider: LUCY STILL MD Diagnosis: OBSTRUCTIVE SLEE P APNEA 2 in the morning -- refilled by Dr. Vela Last Documented On 07/29/2014 6:34PM By Yajaira Still MD ; [facility] Zantac 75 75 MG OR TABS 07/17/2013 - 07/01/2015 Provid er: Diagnosis: Last Documented On 6 4:40PM By AYDE SIMPSON LPN ; [facility] Pramipexole Dihydrochloride 0.5 MG OR TABS 07/17/2013 - 01/01/2015 Provider: LUCY STILL MD Diagnosis: Restless Legs Syndrome 1 and 1/2 tabs at bedtime --- given by Dr. Vela Last Documented On 01/01/2015 2:42PM By Yajaira Still MD ; [facility] Paxil CR 37.5 MG OR TB24 07/17/2013 - 01/18/2014 Provider: LUCY TOMAS MD Diagnosis: MAJOR DEPRESSION DISORDER/RECURRENT Last Documented On 01/18/2014 5:37PM By Yajaira Still MD ; [facility] Modafinil 200 MG OR TABS 07/17/2013 - 01/18/2014 Provider: LUCY STILL MD Diagnosis: OBSTRUCTIVE SLEE P APNEA 2 in the morning Last Documented On 01/18/2014 5:37PM By Yajaira Still MD ; [facility] busPIRone HCl 15 MG OR TABS 07/17/2013 - 01/18/2014 Provider: LUCY STILL MD Diagnosis: GENERALIZED ANXI ETY DIS Last Documented On 01/18/2014 5:37PM By Yajaira Still MD ; [facility] ZyrTEC Allergy 10 MG OR TABS 07/17/2013 - 01/01/2016 P rovider: Diagnosis: Last Documented On 01/01/2016 5:16PM By Yajaira Still MD ; [facility] Paxil CR 37.5 MG OR TB24 01/17/2013 - 07/17/2013 Provider: LUCY TOMAS MD Diagnosis: MAJOR DEPRESSION DISORDER/RECURRENT Last Documented On 07/17/2013 5:23PM By Yajaira Still MD ; [facility] Modafinil 200 MG OR TABS 01/17/2013 - 07/17/2013 Provider: LUCY STILL MD Diagnosis: OBSTRUCTIVE SLEE P APNEA 2 in the morning Last Documented On 07/17/2013 5:23PM By Yajaira Still MD ; [facility] busPIRone HCl 15 MG OR TABS 01/17/2013 - 07/17/2013 Provider: LUCY STILL MD Diagnosis: GENERALIZED ANXI ETY DIS Last Documented On 07/17/2013 5:23PM By Yajaira Still MD ; [facility] Modafinil 200 MG OR TABS 07/19/2012 - 01/17/2013 Provider: LUCY STILL MD Diagnosis: OBSTRUCTIVE SLEE P APNEA 2 in the morning Last Documented On 01/17/2013 5:29PM By Yajaira Still MD ; [facility] Pramipexole Dihydrochloride 0.5

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
--- NOTE | 2024-05-29 13:31 | P.HP_ITS ---
H&P: HPI History of Present Illness Date/Time: 05/29/24 13:31 Chief Complaint: Nausea, Vomiting, Diarrhea Narrative: 58 y/o M presents here with nausea, vomiting, and diarrhea with PMH of complex urological history including multiple kidney stones, ureteral stents, and UTIs, diabetes, OCD, narcolepsy, HLD, and RLS. The patient presents here from home via EMS on 05/29 for further evaluation of nausea, vomiting, and diarrhea. The patient reports onset of nausea, vomiting, and abdominal pain at 9:00 a.m. this morning. Has since had 10+ episodes of diarrhea, would occur when he would vomit. He describes the abdominal pain as diffuse, nonradiating, and constant. He is also endorsing dysuria, however he typically has dysuria when he has a stent in place. He denies fever, chills, body aches, urinary frequency, urinary hesitancy. Of note, the patient was admitted from 05/05/24-05/06/24 for a left ureteral stent placement secondary to an obstructing 11 mm stone at the left UPJ. He underwent lithotripsy outpatient on 05/18 and was started on Bactrim. Plan for stent removal on , 05/31. Initial VS at presentation: 98? F, HR 111, R 21, 110/96, and 100% on RA. ED workup showed: WBC 14.2, hemoglobin 18.8 (previously 13.3 on 05/06/2024), creatinine 1.37 and GFR 53 (previously 0.7 and GFR >60 on 05/06/2024), glucose 219, and UA was like prone/cloudy/3+ protein/trace glucose and ketones/3+ bloo d/1+ leuks. CT of the abdomen/pelvis showed wall thickening in multiple loops of small bowel consistent with enteritis versus interstitial edema, stones in the left ureter and left renal pelvis with mild left hydronephrosis and left internal ureteral stent in expected position, bilateral nonobstructing kidney stones. Review of Systems Review of Systems: All systems reviewed & are unremarkable except as noted in HPI and below PMFSH Past Medical History Medical History COVID-19 Family history of malignant neoplasm of digestive organs Adenomatous polyp of colon Trigger finger of right thumb Nephrolithiasis Restless leg syndrome Obsessive compulsive disorder Type 2 diabetes mellitus Narcolepsy Blood type AB- Mixed hyperlipidemia Arthritis of carpometacarpal (CMC) joint of left thumb Family history of malignant neoplasm of prostate 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 Mitchell lives at home with his and son. He is independent in his daily activities. 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 His primary care provider is Dr. Lee. He would like his , Brooke, to be his surrogate decision maker and would like to be a full code. Smoking status: Never smoker Second hand tobacco smoke exposure: No Alcohol intake: never Substance use: never Substance use type: does not use Do You Feel Safe in your Home?: Yes Lack of Transportation: No Lack of Food: Never True Current Housing: I Have Housing Concerned About Future Housing: No Difficulty Paying Gas/Electric Bills: No Difficulty Paying for Meds: No Currently Unemployed: No Education: Bachelor's Degree Difficulty w/ Childcare or Family Care: No Living arrangements: with family Additional living arrangements comments: Gender identity (if verbalized by the patient): Male Spiritual care concerns: No Meds Home Medications and Allergies Home Medications ?Medication ?Instructions ?Recorded ?Confirmed ?Type cholecalciferol (vitamin D3) 25 25 mcg PO DAILY 09/01/20 05/29/24 History mcg (1,000 unit) capsule omega [id number]-wzc-fish oil 1,200 mg 3 cap PO DAILY 09/01/20 05/29/24 History (144 mg-216 mg) capsule paroxetine HCl 40 mg tablet (Paxil) 60 mg PO DAILY 09/26/20 05/29/24 History buspirone 15 mg tablet 15 mg PO BID #180 tabs 01/08/21 05/29/24 Rx epinephrine 0.3 mg/0.3 mL 0.3 mg (0.3 mL) IM ONCE PRN 01/12/22 05/29/24 Rx injection, auto-injector (EpiPen anaphylaxis #2 ea 2-Bib) ferrous sulfate 325 mg (65 mg 325 mg PO DAILY 12/24/22 05/29/24 History iron) tablet (FeroSul) blood sugar diagnostic (OneTouch #100 ea 01/13/23 05/29/24 Rx Verio test strips) blood-glucose meter (OneTouch #1 ea 01/13/23 05/29/24 Rx Verio Flex Meter) lancets 30 gauge (OneTouch Delica #100 ea 01/13/23 05/29/24 Rx Plus Lancet) rosuvastatin 10 mg tablet (Crestor) 10 mg PO DAILY #90 tabs 12/26/23 05/29/24 Rx omeprazole 20 mg capsule,delayed 20 mg PO DAILY #90 caps 01/03/24 05/29/24 Rx release metformin 1,000 mg tablet See Rx Instructions .Route 01/25/24 05/29/24 Rx .COMPLEX #180 tabs dextroamphetamine-amphetamine 30 30 mg PO BID #60 tabs 02/14/24 05/29/24 Rx mg tablet (Adderall) modafinil 200 mg tablet 200 mg PO QAM #30 tabs 03/03/24 05/29/24 Rx sitagliptin phosphate 100 mg 100 mg PO DAILY #90 tabs 03/06/24 05/29/24 Rx tablet (Januvia) darifenacin 7.5 mg tablet,extended 7.5 mg PO DAILY 03/28/24 05/29/24 History release 24 hr tirzepatide 2.5 mg/0.5 mL 2.5 mg (0.5 mL) subcut WEEKLY #6 mL 03/28/24 05/29/24 Rx subcutaneous pen injector (Mounjaro) pramipexole 1 mg tablet See Rx Instructions .Route 04/10/24 05/29/24 Rx .COMPLEX #135 tabs blood-glucose sensor (FreeStyle #13 ea 05/15/24 05/29/24 Rx Judith 3 Plus Sensor device) oxybutynin chloride 5 mg tablet 5 mg PO BID PRN bladder spasms #30 05/18/24 05/29/24 Rx tabs Allergies Allergy/AdvReac Type Severity Reaction Status Date / Time aspartame Allergy Severe Hives Verified 05/29/24 14:58 loperamide (From Imodium A-D) Allergy Intermediate Hives Verified 05/29/24 14:46 propoxyphene Allergy Intermediate HIVES, Verified 05/29/24 14:46 ITCHING chloramphenicol Allergy Unknown AN Verified 05/29/24 14:46 INFANT ciprofloxacin AdvReac Severe HIVES Verified 05/29/24 14:46 Penicillins AdvReac Unknown UNKNOWN-WAS Verified 05/29/24 14:46 AN INFANT Vital Signs Vital Signs - 24 hr 05/29/24 10:29 05/29/24 10:31 05/29/24 10:46 Temperature 98.0 F Pulse Rate 111 H 109 H 106 H Respiratory Rate 21 H 20 20 Blood Pressure 110/96 H 110/96 H 121/96 H Pulse Oximetry 100 100 100 Oxygen Delivery Room Air 05/29/24 12:00 Temperature 98.0 F Pulse Rate 108 H Respiratory Rate 20 Blood Pressure 128/90 Pulse Oximetry 92 Oxygen Delivery Exam Const: General: no acute distress and uncomfortable Other: , male, modestly ill-appearing HENMT: Face/Nose/Sinus: Normal nares present Mouth: Yes dry mucous membranes Eyes: General: appearance normal, both eyes and all related structures Sclera: sclerae normal Pupils: Equal, round and reactive pupils present EOM: EOMs intact bilaterally Resp: Effort & Inspection: normal respiratory effort Auscultation: clear to auscultation bilaterally Cardio: Rate: regular rate Rhythm: regular rhythm Other: S1-S2 present without murmur, rub, ectopy GI: Other: Abdomen rounded, mildly firm, hyperactive bowel sounds in all quadrants. No tenderness. Skin: General skin exam: normal color and no rashes or lesions noted Wounds: no wounds Neuro: Speech: normal speech Motor exam (neuro): 5/5 motor strength present throughout Sensory Exam: normal sensation Other: A&O x4 Extrem: General: normal to inspection Psych: Mental Status: mental status grossly normal Affect: normal affect Other: Good insight and judgment, pleasant H&P: Results Labs Labs: Short CBC 05/29/24 Range/Units 10:55 WBC 14.2 H (4.5-10.0) K/mm3 Hgb 18.8 H D (14.0-18.0) g/dL Hct 55.0 H (42.0-52.0) % Plt Count 238 D (150-375) k/mm3 BMP 05/29/24 10:55 Sodium 140 Potassium 3.7 Chloride 101 Carbon Dioxide 20 L BUN 22 H Creatinine 1.37 H Glucose 219 H Calcium 9.9 Liver Function 05/29/24 Range/Units 10:55 Total Bilirubin 0.8 (0.2-1.3) mg/dL AST 27 (17-59) U/L ALT 28 (6-50) U/L Alkaline Phosphatase 145 H (38-126) U/L Albumin 4.8 (3.5-5.1) g/dL Urine 05/29/24 Range/Units 12:23 Urine Color Light brown H (Yellow) Urine Appearance Cloudy H (Clear) Urine pH 5.5 (5.0-9.0) Ur Specific Banner 1.022 (1.001-1.035) Urine Protein 3+ H (Negative) mg/dL Urine Glucose (UA) Trace H (Negative) mg/dL Assessment and Plan Assessment and plan (1) Nausea vomiting and diarrhea: Code(s): R11.2 - Nausea with vomiting, unspecified; R19.7 - Diarrhea, unspecified Status: Acute Assessment and Plan: - CT abd/pelvis: 1. Wall thickening of multiple loops of small bowel, consistent with enteritis versus interstitial edema. 2. Stones in the left ureter and left renal pelvis with mild left hydronephrosis and left internal ureteral stent in expected position. 3. Bilateral nonobstructing kidney stones. - WBC 14.2, previously 3.9 on 05/06/24 - check stool culture and c. Diff, recent Bactrim course/hospital stay - rehydrate: 2L bolus -> 125 mL/hr - antiemetics prn - UA not consistent with UTI, only 1+ leuks. urine culture pending, follow. - clear liquid, advance diet to diabetic as tolerated tomorrow (05/30) DDx: gastroenteritis, infectious diarrhea, UTI (2) DENA (acute kidney injury): Code(s): N17.9 - Acute kidney failure, unspecified Status: Acute Assessment and Plan: - hemoglobin 18.8 (previously 13.3 on 05/06/2024), creatinine 1.37 and GFR 53 (previously 0.7 and GFR >60 on 05/06/2024) - high suspicion for acute dehydration resulting in an DENA given reported hx of nausea, vomiting, diarrhea and hemoconcentration on labs. rehydrate over the next 24 hours, if no improvement in Hgb/renal function. consider further work up and consultation. - trend renal function and I&Os - trend electrolytes, correct as needed (3) Left renal stone: Code(s): N20.0 - Calculus of kidney Status: Acute Assessment and Plan: - stent placement on 05/05/24, lithotripsy on 05/18, planned stent removal on 05/31 - stent in expected position on CT - urology consulted (4) Type 2 diabetes mellitus without complications: Qualifiers: Diabetes mellitus prison insulin use: without supervisor intermediates use Qualifi ed Code(s): E11.9 - Type 2 diabetes mellitus without complications Code(s): E11.9 - Type 2 diabetes mellitus without complications Status: Chronic Assessment and Plan: - hypoglycemia protocol - POC blood glucose ACHS - home medication: Hold metformin in case of need for contrast. Continue Januvia. - correct regimen ordered - moderate dose TIDWM, based off BMI - A1C 7.6% on 03/06/2024 Plan Diet: clear liquid GI Prophylaxis: not currently indicated DVT Prophylaxis: SCDs Lines: Peripheral Code Status: Full code Quality VTE Prophylaxis VTE prophylaxis: mechanical ordered Hospitalist [facility] Advance Care Plan I have confirmed that the patient's Advanced Care Plan is present, code status is documented, or surrogate decision maker is listed in patient medical record.: Yes Medication Reconciliation I have utilized all available resources to obtain, update and review the patients current medications (includes all prescriptions, OTC, herbals, cannabis, and nutritional supplements).: Yes
[2024-05-29] MEDS: LACTATED RINGERS 1,000 ML 150 ML IV CONT ×2 (14:33→20:14)
--- NOTE | 2024-05-29 14:39 | ADMGEN ---
This patient, Mariano Mitchell, was admitted to Medical Room 261-01. Patient/family oriented to hospital policies and general routines including ID bracelet, bed and alarms, visiting hours, pain management, procedures, bathroom and other care routines, personal items, smoking policy, room service/diet, and visiting hours. Information on how to activate the Rapid Response Team has been discussed. Patient/Family are encouraged to report perceived risks to care and to ask questions if they do not understand what they are told or what they should do.
--- NOTE | 2024-05-29 16:15 | P.CONUR_ITS ---
Assessment and Plan Assessment and plan (1) Left renal stone: Code(s): N20.0 - Calculus of kidney Status: Acute Assessment and Plan: Have discussed management. Have decided to proceed with cysto left retrograde left ureteroscopy with laser of any residual stones. Will see if there is any time on Tuesday that is dependent on what else is occurring with some this admission. (2) Calculus of ureter: Code(s): N20.1 - Calculus of ureter Status: Acute Urology Consult Note HPI Date Seen: 05/29/24 Time Seen: 16:15 Requesting Physician: Daron Schultz MD Primary Care Provider: Giorgio Lee MD Consult Narrative Reason for consult: Left ureteral stent with calculi Narrative: Mariano Mitchell is a 58 year old male well known to me who underwent left ureteral stent placement with lithotripsy of left renal calculus about a week ago. He was doing well but then developed some GI symptoms and presented emergency room. Daughter is related stone or stent. Nonetheless CT scan revealed some 3 mm fragments along the course of the ureter as well as residual stones in the kidney. Review of Systems 2 Review of Systems: All systems reviewed & are unremarkable except as noted in HPI and below PMFSH Past Medical History Medical History COVID-19 Family history of malignant neoplasm of digestive organs Adenomatous polyp of colon Trigger finger of right thumb Nephrolithiasis Restless leg syndrome Obsessive compulsive disorder Type 2 diabetes mellitus Narcolepsy Blood type AB- Mixed hyperlipidemia Arthritis of carpometacarpal (CMC) joint of left thumb Family history of malignant neoplasm of prostate 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 Mitchell lives at home with his and son. He is independent in his daily activities. He is retired from working with a [employer]. His primary care provider is Dr. Lee. He would like his , Brooke, to be his surrogate decision maker and would like to be a full code. Smoking status: Never smoker Second hand tobacco smoke exposure: No Alcohol intake: never Substance use: never Substance use type: does not use Do You Feel Safe in your Home?: Yes Lack of Transportation: No Lack of Food: Never True Current Housing: I Have Housing Concerned About Future Housing: No Difficulty Paying Gas/Electric Bills: No Difficulty Paying for Meds: No Currently Unemployed: No Education: Bachelor's Degree Difficulty w/ Childcare or Family Care: No Living arrangements: with family Additional living arrangements comments: Gender identity (if verbalized by the patient): Male Spiritual care concerns: No Meds Home Medications and Allergies Home Medications ?Medication ?Instructions ?Recorded ?Confirmed ?Type cholecalciferol (vitamin D3) 25 25 mcg PO DAILY 09/01/20 05/29/24 History mcg (1,000 unit) capsule omega 6-ari-pha-fish oil 1,200 mg 3 cap PO DAILY 09/01/20 05/29/24 History (144 mg-216 mg) capsule paroxetine HCl 40 mg tablet (Paxil) 60 mg PO DAILY 09/26/20 05/29/24 History buspirone 15 mg tablet 15 mg PO BID #180 tabs 01/08/21 05/29/24 Rx epinephrine 0.3 mg/0.3 mL 0.3 mg (0.3 mL) IM ONCE PRN 01/12/22 05/29/24 Rx injection, auto-injector (EpiPen anaphylaxis #2 ea 2-Bib) ferrous sulfate 325 mg (65 mg 325 mg PO DAILY 12/24/22 05/29/24 History iron) tablet (FeroSul) blood sugar diagnostic (OneTouch #100 ea 01/13/23 05/29/24 Rx Verio test strips) blood-glucose meter (OneTouch #1 ea 01/13/23 05/29/24 Rx Verio Flex Meter) lancets 30 gauge (OneTouch Delica #100 ea 01/13/23 05/29/24 Rx Plus Lancet) rosuvastatin 10 mg tablet (Crestor) 10 mg PO DAILY #90 tabs 12/26/23 05/29/24 Rx omeprazole 20 mg capsule,delayed 20 mg PO DAILY #90 caps 01/03/24 05/29/24 Rx release metformin 1,000 mg tablet See Rx Instructions .Route 01/25/24 05/29/24 Rx .COMPLEX #180 tabs dextroamphetamine-amphetamine 30 30 mg PO BID #60 tabs 02/14/24 05/29/24 Rx mg tablet (Adderall) modafinil 200 mg tablet 200 mg PO QAM #30 tabs 03/03/24 05/29/24 Rx sitagliptin phosphate 100 mg 100 mg PO DAILY #90 tabs 03/06/24 05/29/24 Rx tablet (Januvia) darifenacin 7.5 mg tablet,extended 7.5 mg PO DAILY 03/28/24 05/29/24 History release 24 hr tirzepatide 2.5 mg/0.5 mL 2.5 mg (0.5 mL) subcut WEEKLY #6 mL 03/28/24 05/29/24 Rx subcutaneous pen injector (Yanira) pramipexole 1 mg tablet See Rx Instructions .Route 04/10/24 05/29/24 Rx .COMPLEX #135 tabs blood-glucose sensor (FreeStyle #13 ea 05/15/24 05/29/24 Rx Judith 3 Plus Sensor device) oxybutynin chloride 5 mg tablet 5 mg PO BID PRN bladder spasms #30 05/18/24 05/29/24 Rx tabs Allergies Allergy/AdvReac Type Severity Reaction Status Date / Time aspartame Allergy Severe Hives Verified 05/29/24 14:58 loperamide (From Imodium A-D) Allergy Intermediate Hives Verified 05/29/24 14:46 propoxyphene Allergy Intermediate HIVES, Verified 05/29/24 14:46 ITCHING chloramphenicol Allergy Unknown AN Verified 05/29/24 14:46 INFANT ciprofloxacin AdvReac Severe HIVES Verified 05/29/24 14:46 Penicillins AdvReac Unknown UNKNOWN-WAS Verified 05/29/24 14:46 AN INFANT Vital Signs Vital Signs - 24 hr 05/29/24 10:29 05/29/24 10:31 05/29/24 10:46 Temperature 36.7 C Pulse Rate 111 H 109 H 106 H Respiratory Rate 21 H 20 20 Blood Pressure 110/96 H 110/96 H 121/96 H Pulse Oximetry 100 100 100 Oxygen Delivery Room Air 05/29/24 12:00 05/29/24 13:00 05/29/24 14:03 Temperature 36.7 C 36.6 C 36.5 C Pulse Rate 108 H 96 85 Respiratory Rate 20 17 14 Blood Pressure 128/90 126/88 110/78 Pulse Oximetry 92 97 97 Oxygen Delivery Exam 2 Const: General: cooperative Resp: Effort & Inspection: normal respiratory effort Cardio: Rate: regular rate Rhythm: regular rhythm Results Labs 05/29/24 10:55 05/29/24 10:55 Labs: Short CBC 05/29/24 Range/Units 10:55 WBC 14.2 H (4.5-10.0) K/mm3 Hgb 18.8 H D (14.0-18.0) g/dL Hct 55.0 H (42.0-52.0) % Plt Count 238 D (150-375) k/mm3 BMP 05/29/24 10:55 Sodium 140 Potassium 3.7 Chloride 101 Carbon Dioxide 20 L BUN 22 H Creatinine 1.37 H Glucose 219 H Calcium 9.9 Liver Function 05/29/24 Range/Units 10:55 Total Bilirubin 0.8 (0.2-1.3) mg/dL AST 27 (17-59) U/L ALT 28 (6-50) U/L Alkaline Phosphatase 145 H (38-126) U/L Albumin 4.8 (3.5-5.1) g/dL Urine 05/29/24 Range/Units 12:23 Urine Color Light brown H (Yellow) Urine Appearance Cloudy H (Clear) Urine pH 5.5 (5.0-9.0) Ur Specific [place] 1.022 (1.001-1.035) Urine Protein 3+ H (Negative) mg/dL Urine Glucose (UA) Trace H (Negative) mg/dL
[2024-05-29 16:52] LABS: Glucose Point of Care 159 mg/dl (65-105)
--- OUTSIDE RECORDS SUMMARY | 2024-05-29 18:39 | XMS_ITS | Clinical Summary ---
Author Organization [facility] [address] Address [address] [place] [address] Care Team Providers Care Medical Insurance Coding Specialist Name Role Phone Giorgio Lee MD Primary Care Provider [phone] Allergies Active Allergy Reactions Criticality Noted Date [...] a meal 0 0 6 Active omega 7-lec-oco-fish oil (FISH OIL) 360-1,200 mg capsule,delayed release(DR/EC) [...] (06/13/2018): Added automatically from request for surgery [id number] Overweight (BMI 25.0-29.9) 10/22/2016 Hay fever 01/26/2016 [...] on file Legal Sex Male 11:57 PM AIRPORT LOCATION MANAGER Gender Identity Male 01/13/2019 7:57 PM AIRPORT LOCATION MANAGER Sexual Orientation Straight 01/13/2019 7: 57 PM AIRPORT LOCATION MANAGER Obstetrics History Last Filed Vital Signs Vital [...] LIPID PANEL Routine 04/07/2013 8:4 5 PM AIRPORT LOCATION MANAGER from Last 3 Months or Most Recently Relevant to Health Maintenance Results * COLONOSCOPY (07/28/2018 9:02 AM CDT) Anatomical Region Laterality Modality Other Narrative Procedure Note Ramo Meza MD - 07/28/2018 9:02 AM CDT [facility] Patient Name: Chuy Mitchell Procedure Date: 07/28/2018 9:02 AM Date of : 1965 Admit Type: Outpatient Age: 52 Gender: Male Attending MD: Ramo Meza M.D. Room: [facility] 1 Note Status: Finalized [...] colonoscopy in 3 - 5 years formerly [facility]. - Continue present medications. Medicines: Monitored [...] passed under direct vision.The Pediatric Colonoscope [id number] was introduced through the anus and advanced [...] 9:02 AM Procedure Code(s): --- Professional --- 33375, Colonoscopy, flexible; with biopsy, single or multiple Diagnosis Code(s): --- Professional --- Z80.0, Family history of malignant neoplasm of digestive organs Z86.010, Personal history of colonic polyps K64.8, Other hemorrhoids D12.5, Benign neoplasm of sigmoid colon K57.30, Diverticulosis of large intestine without perforation orabscess without bleeding CPT copyright 2017 [employer]. All rights reserved. The codes documented in this report are preliminary and upon medical insurance coder reviewmay be revised to meet current compliance requirements. Recognized by the [employer] for promoting quality [...] mL/min/1.73m2 *Relative to young adult level If -[place] multiply value by 1.16. Estimated glomerular filtration [...] ORDERABLES Final Resul t MARCIN LOWE GERSON) [address] [facility] Department of Laboratories [place], [place] [id number] * (ABNORMAL) Serum lipid panel (04/07/2013 8:45 PM AIRPORT LOCATION MANAGER) LDL 54 0 - 129 mg/dl HISTORICAL [...] revised on 2007. Serum 04/07/2013 8:45 PM AIRPORT LOCATION MANAGER us Edgar Pratt MD LAB BLOOD ORDERABLES Final Resul t HISTORICAL RESULTS from Last 3 Months or Most Recently Relevant to Health Maintenance Insurance [facility] CHOICE PLUS [facility] CHO[facility] CHO[facility] PLUS Care Teams Medical Insurance Coding Specialist Relationship Specialty Start Date End Date Giorgio Lee MD PCP - General 06/04/16
--- OUTSIDE RECORDS SUMMARY | 2024-05-29 18:39 | XMS_ITS | Clinical Summary ---
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 Name Role Phone WILIAM PHILLIPS, LUCY JUNG Unavailable [phone] Reason for Visit and Chief Complaint The Chief Complaint is: follow up for anxiety and depression Problems Includes: Problems addressed during this encounter and other active Problems Current Visit Onset Date Resolved Date Provider Conditio n Status Narcolepsy 10/05/2014 Active Last Documented On 3 5:48PM ; [facility] 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 Last Documented On 3 5:45PM ; [facility] Major Depression, Recurrent 07/19/2012 Active Last Documented On 3 5:45PM ; [facility] Restless Legs Syndrome 07/19/2012 Ac tive Last Documented On 3 5:45PM ; [facility] Obsessive Compulsive Disorder 03/08/2012 Active Last Documented On 3 5:50PM ; [facility] Generalized Anxiety Disorder 03/08/2012 Active Last Documented On 3 5:42PM ; [facility] Obsessive Compulsive Disorder 03/08/2012 Inactive Last Documented On 3 5:42PM ; [facility] Past Visits Onset Date Resolved Date Provider Condition Status Diabetes Mellitus 07/19/2012 Active Last Documented On 3 5:45PM ; [facility] Gerd 03/08/2012 Active Last Documented On 3 5:42PM ; [facility] Hyperlipidemia 03/08/2012 Active Last Documented On 3 5:42PM ; [facility] Nephrolithiasis 03/08/2012 Active Last Documented On 3 5:42PM ; [facility] Plan of Treatment Major depressive disorder - Paxil 40 mg 1 and 1/2 tabs daily Obsessive Compulsive Disorder - Paxil 40 mg 1 and 1/2 tab daily Generalized Anxiety Disorder - Buspar 15 mg 1 tab 2 x a day LISA - Vpap tx is no longer helping, he now sees a different sleep specialist in [place], [place] Dr. Lujan -- Modafinil 200 mg in am Restless legs Syndrome - Pramipexole 1.5 mg in evening - Last Documented On 01/03/2023 12:30PM ; [facility] Future Appointments Date Time Location Provi conrad TELEHEALTH ADULT PSYCH ESTABLISHED 06/20/2024 4:40PM [facility] STILL MD Last Documented On 4 5:56PM ; [facility] Education and Decision Aids were provided during visit for: Discussed good sleep hygiene habits Last Documented On 3 6:40PM ; [facility] Assessments Includes: Assessments from this encounter Findings - Obstructive sleep apnea - Last Documented On 01/03/2023 12:30PM ; [facility] - Restless legs syndrome - Last Documented On 01/03/2023 12:30PM ; [facility] - Major depression, recurrent - Last Documented On 01/03/2023 12:30PM ; [facility] - Narcolepsy - Last Documented On 01/03/2023 12:30PM ; [facility] - Generalized anxiety disorder - Last Documented On 01/03/2023 12:30PM ; [facility] - Obsessive compulsive disorder - Last Documented On 01/03/2023 12:30PM ; [facility] Instructions Includes: Instructions from this encounter Education and Decision Aids were provided during visit for: Discussed good sleep hygiene habits Last Documented On 3 6:40PM ; [facility] Medical Equipment - Implanted Devices Includes: Current Devices No Medical Equipment Recorded Medications Includes: Medications discussed during this encounter and other current Medications Discontinued / Stopped on this date on 06/23/2022 Gemtesa 75 MG OR TABS Provider: Diagnosis: Last Documented On 12/23/2022 4:48PM By ELISEO BARCENAS ; [facility] Current Medications (continue as prescribed) Paxil 40 MG Oral Tablet 06/21/2023 Provider: BRIONNA STILL MD Diagnosis: Obsessive-compul sive disorder, unspecified TAKE 1 AND 1/2 TABLETS BY [facility] DAILY DIRECTED Last Documented On 06/21/2023 5:42PM By Yajaira Still MD ; [facility] busPIRone HCl 15 MG Oral Tablet 06/20/2023 Provider: LUCY STILL MD Diagnosis: Generalized anxi ety disorder One tablet twice a day Last Documented On 06/20/2023 10:49AM By Yajaira Still MD ; [facility] Pramipexole Dihydrochloride 1 MG Oral Tablet 04/20/2023 Provider: NICOLA Archibald Diagnosis: 1 and 1/2 tab in the evening Last Documented On 06/21/2023 5:48PM By Yajaira Still MD ; [facility] Fish Oil 1200 MG Oral Capsule 12/23/2022 Provider: Diagnosis: 3 caps daily Last Documented On 12/23/2022 4:48PM By ELISEO BARCENAS ; [facility] oxyBUTYnin Chloride ER 15 MG Oral Tablet Extended Release 24 Hour 11/15/2022 Provider: RAFITA RUGGIERO MD Diagnosis: 1 tab daily Last Documented On 12/23/2022 4:48PM By ELISEO DIAL RMA ; [facility] Januvia 100 MG OR TABS 10/02/2021 Provider: Diagnosis: 1 tab daily Last Documented On 07/03/2022 5:27PM By ELISEO BARCENAS ; [facility] FeroSul 325 (65 Fe) MG OR TABS 05/28/2021 Provider: Diagnosis: 1 tab daily Last Documented On 07/03/2022 5:27PM By ELISEO BARCENAS ; [facility] EPINEPHrine 0.3 MG/0.3ML IJ SOAJ 2020 Provider : Diagnosis: use as directed Last Documented On 07/03/2022 5:27PM By ELISEO BARCENAS ; [facility] Rosuvastatin Calcium 10 MG OR TABS 06/18/2019 Provid er: Diagnosis: one tablet daily Last Documented On 07/03/2022 5:27PM By JENNIFER CARMICHAEL ; [facility] Modafinil 200 MG OR TABS 07/24/2018 Provider: MET SHELDON STILL MD Diagnosis: Obstructive slee p apnea (adult) (pediatric) as directed -- 1 tab in am Last Documented On 07/03/2022 5:27PM By Yajaira Still MD ; [facility] Amphetamine-Dextroamphetamin e 30 MG OR TABS 01/01/2016 Provider: LUCY STILL MD Diagnosis: Sleep apnea, unspecified as directed Take 1/2 tablet in am and 1/2 tab at 2: 30 pm Last Documented On 07/03/2022 5:27PM By Yajaira Still MD ; [facility] PA Vitamin D-3 25 MCG (1000 UT) OR TABS 01/01/2015 P rovider: Diagnosis: Last Documented On 07/03/2022 5:27PM By Yajaira Still MD ; [facility] metFORMIN HCl 1000 MG TABS 07/19/2012 Provider: Diagnosis: Last Documented On 07/03/2022 5:27PM By VALENTINO GOLD ; [facility] Omeprazole 20 MG OR CPDR 03/08/2012 Provider: Diagnosis: Last Documented On 07/03/2022 5:27PM By VALENTINO GOLD ; [facility] Past Medications on file busPIRone HCl 7.5 MG OR TABS 03/17/2018 - 04/16/2018 P rovider: Diagnosis: Major depressive disorder, recurrent, moderate 2 tablets twice a day Last Documented On 07/03/2022 5:27PM By ELISEO BARCENAS ; [facility] Nuvigil 250 MG OR TABS 03/31/2015 - 04/14/2015 Provider: LUCY TOMAS MD Diagnosis: Obstructive slee p apnea (adult) (pediatric) 1 tablet every morning --14 samples for picker 03/31/15 Last Documented On 07/03/2022 5:27PM By Yajaira Still MD ; [facility] Medications Administered Includes: Administered Medications from this [...] 18 months to qualify for a pension snf. 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 His highest grade level achieved was graduate school. 12/23/2022 Last Documented On 3 4:55PM ; [facility] Tobacco non-user 12/23/2022 Last Documented On 3 12:30PM ; [facility] Smoking Status Unknown Procedures and Surgical History Includes: Procedures from this encounter Procedures Code Diagnosis Performing Provider Service L ocation Service Date education and instructions Last Documented On 3 4:32PM ; [facility] supportive care and encourag ement--given positive reinforcement to keep patient motivated and active Last Documented On 3 5:00PM ; [facility] ~* Call [phone] and /or go t o the nearest emergency room or call me if suicidal/homicidal ideation or other serious concerns arise. ~ ~* I gave instructions to call me should there be any questions or concerns. ~ ~* Patient voiced understanding and agreed to treatment plan Last Documented On 3 4:49PM ; [facility] dangerousness assessment: no suicide risk 3085F Last Documented On 3 4:32PM ; [facility] use of tobacco assessment performed 1000F Last Documented On 3 4:50PM ; [facility] patient screened for future fall risk: documentation of any fall with injury in past year - no recent falls 1100F Last Documented On 3 4:49PM ; [facility] review of medications documented 1160F Last Documented On 3 4:49PM ; [facility] screening for adult depression: impressi on and score - not suicidal Last Documented On 3 4:50PM ; [facility] standardized depression screening: posit refugio for symptoms Last Documented On 3 4:50PM ; [facility] encouragement to exercise - balanced pippa l plan, low fat low carb diet Last Documented On 3 4:49PM ; [facility] Clinical summary provided to patient Last Documented On 3 4:32PM ; [facility] PHQ-9: total score 2 Last Documented On 3 4:58PM ; [facility] Medical History Includes: Medical History addressed during this encounter Description Last Updated Primary Care Provider: Dr. Nahed Lee -- Josiah Lujan -- Neurologist Dr. Rafita Salguero/Dr. Víctor Pichardo -Urologist -- [facility] Dr. Stephan Osuna -- Ophthamologist.Dr. Ron Richards [...] -- 09/2014, another lithotripsy done 12/17/16 -- [facility] (Dr. Pichardo) -- 06/2017 stones removed, 11/[address] [facility] -- passed kidney stone at home 11/2018. Overactive bladder - and urge to urinate -- given Myrbetriq 25 mg and given Tamsulosin 0.4 mg 04/30/22 and 02/01/22. Hyperlipidemia. Diabetes mellitus. Contact dermatitis -- he took a steroid, antibiotic, benadryl. Arthritis - right hand -- appointment with Dr. Eduard Bañuelos [facility]. Restless legs syndrome. Narcolepsy --Dr. Conroy added Adderall 11/2014. Allergic reaction - unknown origin -- hospitalized at [facility] 09/27/20 -- given Epipen and Prednisone 10 [...] 201012/23/2022 Last Documented On 3 6:41PM ; [facility] Family History Includes: Family History addressed during this encounter Description Last Updated Family medical history: No significant f amily history 12/23/2022 Last Documented On 3 4:56PM ; [facility] Review of Systems Includes: Review [...] Active Last Documented On 06/21/2023 4:56PM ; [facility] Note: Imported from external source. Cipro Allergy 12/20/2018 Active Last Documented On 06/21/2023 4:56PM ; [facility] Note: Imported from external source. Cipro Allergy Hives / Urticaria 12/20/2018 R esolved Last Documented On 4:47PM ; [facility] Aspartame Allergy Skin Rashes / Eruption of skin 06/29/2018 Active Last Documented On 06/21/2023 4:56PM ; [facility] Note: Imported from external source. Encounters Encounter Provider Location Date Check-In Time Check-Out Time Diagnosis TELEHEALTH ADULT PSYCH ESTABLISHED LUCY STILL MD [facility] 12/24/19 4:32PM 11:59PM Nonorganic Sleep Apnea Obstructive,O bsessive Compulsive Disorder,Rest less Legs Syndrome,Gene ralized Anxiety Disorder,Jinny r Depression, Recurrent,Mike colepsy Insurance Includes: Active Insurance Policies Plan Name Member ID Group # Subscriber Relationship Effect refugio Dates 1 - [facility] [id number] MARYAM MUNOZ 03/10/2020 - Unknown Clinical Notes Includes: Clinical Notes from this encounter * Progress note Date Encounter Last Documented by 12/23/2022 TELEHEALTH ADULT PSYCH ESTABLISH ED Last documented on 01/03/2023; 12:30 PM, LUCY STILL MD; [facility] Top of Document Medication psychotherapy 30 minutes [...] 18 months to qualify for a pension snf. He is busy driving his 23 y/o [...] Dr. Rafita Salguero/Dr. Víctor Pichardo -Urologist -- [facility] Dr. Stephan Osuna -- Ophthamologist. Dr. Ron Richards -- Heat Treat Technician Diagnoses: mosquito-like bites or red spots on [...] -- 09/2014, another lithotripsy done 12/17/16 -- [facility] (Dr. Pichardo) -- 06/2017 stones removed, 11/[address] [facility] -- passed kidney stone at home 11/2018. Overactive bladder - and urge to urinate -- given Myrbetriq 25 mg and given Tamsulosin 0.4 mg 04/30/22 and 02/01/22. Hyperlipidemia. Diabetes mellitus. Contact dermatitis -- he took a steroid, antibiotic, benadryl. Arthritis - right hand -- appointment with Dr. Eduard Bañuelos [facility]. Restless legs syndrome. Narcolepsy --Dr. Conroy added Adderall 11/2014. Allergic reaction - unknown origin -- hospitalized at [facility] 09/27/20 -- given Epipen and Prednisone 10 [...] PREVIOUS PSYCHIATRIC HOSPITALIZATIONS: He was treated at [facility] by Dr. Radames Boyer from [id number]. PREVIOUS PSYCHIATRIC TREATMENT: Dr. Radames Boyer from [id number]. PREVIOUS PSYCHIATRIC MEDICATIONS: Anafranil-caused weight gain Prozac, which he took for 2 years. These were given by Dr. Radames Boyer from [place]. Social History Tobacco use: Tobacco non-user. Caffeine use: No coffee consumption -- He drinks 1 can of diet soda and 1 glass of tea a day. Tobacco use: Smoking status: Never smoker. Alcohol: Not using alcohol. Drug Use: Not using drugs (Illicit). 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 Marital: Marital history -- . He [...] Clinical summary provided to patient. * Call [phone] and /or go to the nearest emergency [...] now sees a different sleep specialist in [place], [place] Dr. Lujan -- Modafinil 200 mg [...]
--- OUTSIDE RECORDS SUMMARY | 2024-05-29 18:39 | XMS_ITS | Clinical Summary ---
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 Last Documented On 3 5:45PM ; [facility] Major Depression, Recurrent 07/19/2012 Active Last Documented On 3 5:45PM ; [facility] Restless Legs Syndrome 07/19/2012 Ac tive Last Documented On 3 5:45PM ; [facility] Obsessive Compulsive Disorder 03/08/2012 Active Last Documented On 3 5:50PM ; [facility] Generalized Anxiety Disorder 03/08/2012 Active Last Documented On 3 5:42PM ; [facility] Obsessive Compulsive Disorder 03/08/2012 Inactive Last Documented On 3 5:42PM ; [facility] Past Visits Onset Date Resolved Date Provider Condition Status Diabetes Mellitus 07/19/2012 Active Last Documented On 3 5:45PM ; [facility] Gerd 03/08/2012 Active Last Documented On 3 5:42PM ; [facility] Hyperlipidemia 03/08/2012 Active Last Documented On 3 5:42PM ; [facility] Nephrolithiasis 03/08/2012 Active Last Documented On 3 5:42PM ; [facility] Plan of Treatment Major depressive disorder - Paxil 40 mg 1 and 1/2 tabs daily Obsessive Compulsive Disorder - Paxil 40 mg 1 and 1/2 tab daily Generalized Anxiety Disorder - Buspar 15 mg 1 tab 2 x a day LISA - Vpap tx is no longer helping, he now sees a different sleep specialist in [place], [place] Dr. Lujan -- Modafinil 200 mg in am -- he is now back to wearing his CPAP Restless legs Syndrome - Pramipexole 1.5 mg in evening - Last Documented On 07/11/2023 8:45PM ; [facility] Future Appointments Date Time Location Provi conrad TELEHEALTH ADULT PSYCH ESTABLISHED 06/20/2024 4:40PM [facility] STILL MD Last Documented On 5:56PM ; [facility] Assessments Includes: Assessments from this encounter Findings - Obstructive sleep apnea - Last Documented On 07/11/2023 8:45PM ; [facility] - Restless legs syndrome - Last Documented On 07/11/2023 8:45PM ; [facility] - Major depression, recurrent - Last Documented On 07/11/2023 8:45PM ; [facility] - Narcolepsy - Last Documented On 07/11/2023 8:45PM ; [facility] - Generalized anxiety disorder - Last Documented On 07/11/2023 8:45PM ; [facility] - Obsessive compulsive disorder - Last Documented On 07/11/2023 8:45PM ; [facility] Medical Equipment - Implanted Devices Includes: Current Devices No Medical Equipment Recorded Medications Includes: Medications discussed during this encounter and other current Medications Discontinued / Stopped on this date on 06/06/2020 Pramipexole Dihydrochloride 1 MG OR TABS Provider: Diagnosis: Last Documented On 06/21/2023 5:48PM By Yajaira Still MD ; [facility] New / Renewed during this visit LUCY STILL MD on 06/21/2023 Paxil 40 MG Oral Tablet Provider: BRIONNA STILL MD 90 day supply: 135 tablet, 3 refills Diagnosis: Obsessive-compulsive disorder, unspecified TAKE 1 AND 1/2 TABLETS BY [facility] DAILY DIRECTED Pharmacy: [facility] [address], [address] - Last Documented On 06/21/2023 5:42PM By Yajaira Still MD ; [facility] Current Medications (continue as prescribed) busPIRone HCl 15 MG Oral Tablet 06/20/2023 Provider: LUCY STILL MD Diagnosis: Generalized anxi ety disorder One tablet twice a day Last Documented On 06/20/2023 10:49AM By Yajaira Still MD ; [facility] Pramipexole Dihydrochloride 1 MG Oral Tablet 04/20/2023 Provider: NICOLA Archibald Diagnosis: 1 and 1/2 tab in the evening Last Documented On 06/21/2023 5:48PM By Yajaira Still MD ; [facility] Fish Oil 1200 MG Oral Capsule 12/23/2022 Provider: Diagnosis: 3 caps daily Last Documented On 12/23/2022 4:48PM By ELISEO BARCENAS ; [facility] oxyBUTYnin Chloride ER 15 MG Oral Tablet Extended Release 24 Hour 11/15/2022 Provider: RAFITA RUGGIERO MD Diagnosis: 1 tab daily Last Documented On 12/23/2022 4:48PM By ELISEO DIAL RMA ; [facility] Januvia 100 MG OR TABS 10/02/2021 Provider: Diagnosis: 1 tab daily Last Documented On 07/03/2022 5:27PM By ELISEO BARCENAS ; [facility] FeroSul 325 (65 Fe) MG OR TABS 05/28/2021 Provider: Diagnosis: 1 tab daily Last Documented On 07/03/2022 5:27PM By ELISEO BARCENAS ; [facility] EPINEPHrine 0.3 MG/0.3ML IJ SOAJ 2020 Provider : Diagnosis: use as directed Last Documented On 07/03/2022 5:27PM By ELISEO BARCENAS ; [facility] Rosuvastatin Calcium 10 MG OR TABS 06/18/2019 Provid er: Diagnosis: one tablet daily Last Documented On 07/03/2022 5:27PM By JENNIFER CARMICHAEL ; [facility] Modafinil 200 MG OR TABS 07/24/2018 Provider: MET SHELDON STILL MD Diagnosis: Obstructive slee p apnea (adult) (pediatric) as directed -- 1 tab in am Last Documented On 07/03/2022 5:27PM By Yajaira Still MD ; [facility] Amphetamine-Dextroamphetamin e 30 MG OR TABS 01/01/2016 Provider: LUCY STILL MD Diagnosis: Sleep apnea, unspecified as directed Take 1/2 tablet in am and 1/2 tab at 2: 30 pm Last Documented On 07/03/2022 5:27PM By Yajaira Still MD ; [facility] Vitamin D-3 25 MCG (1000 UT) OR TABS 01/01/2015 P rovider: Diagnosis: Last Documented On 07/03/2022 5:27PM By Yajaira Still MD ; [facility] metFORMIN HCl 1000 MG TABS 07/19/2012 Provider: Diagnosis: Last Documented On 07/03/2022 5:27PM By VALENTINO GOLD ; [facility] Omeprazole 20 MG OR CPDR 03/08/2012 Provider: Diagnosis: Last Documented On 07/03/2022 5:27PM By VALENTINO GOLD ; [facility] Past Medications on file busPIRone HCl 7.5 MG OR TABS 03/17/2018 - 04/16/2018 P rovider: Diagnosis: Major depressive disorder, recurrent, moderate 2 tablets twice a day Last Documented On 07/03/2022 5:27PM By ELISEO BARCENAS ; [facility] Nuvigil 250 MG OR TABS 03/31/2015 - 04/14/2015 Provider: LUCY TOMAS MD Diagnosis: Obstructive slee p apnea (adult) (pediatric) 1 tablet every morning --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 Once they landed in [facility] last 03/26/2023 he felt sick and was having some coughing fits and immediately he thought that he got COVID. 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 His highest grade level achieved was graduate school. 06/21/2023 Last Documented On 4 4:45PM ; [facility] Tobacco non-user 06/21/2023 Last Documented On 4 8:45PM ; [facility] Smoking Status Unknown Procedures and Surgical History Includes: Procedures from this encounter Procedures Code Diagnosis Performing Provider Service Location Service Date PSYCHOTHERAPY 30 MIN W/ [place] [address] Major depressive disorder, recurrent, moderate, Generalized anxiety disorder, Restless legs syndrome, Narcolepsy without cataplexy LUCY STILL MD [facility]PS[facility] 06/21/2023 Last Documented On 4 4:04PM ; [facility] education and instructions Last Documented On 4 4:45PM ; [facility] supportive care and encourag ement--given positive reinforcement to keep patient motivated and active Last Documented On 4 5:05PM ; [facility] ~* Call [phone] and /or go t o the nearest emergency room or call me if suicidal/homicidal ideation or other serious concerns arise. ~ ~* I gave instructions to call me should there be any questions or concerns. ~ ~* Patient voiced understanding and agreed to treatment plan Last Documented On 4 4:57PM ; [facility] dangerousness assessment: no suicide risk 3085F Last Documented On 4 4:45PM ; [facility] use of tobacco assessment performed 1000F Last Documented On 4 4:45PM ; [facility] patient screened for future fall risk: documentation of any fall with injury in past year - no recent falls 1100F Last Documented On 4 4:45PM ; [facility] review of medications documented 1160F Last Documented On 4 4:45PM ; [facility] assessment of suicide risk performed - n ot suicidal Last Documented On 4 4:57PM ; [facility] screening for adult depressi on: impression and score - please see above for treatment and PHQ score Last Documented On 4 4:57PM ; [facility] standardized depression screening: posit refugio for symptoms Last Documented On 4 4:45PM ; [facility] encouragement to exercise - balanced pippa l plan, low fat low carb diet Last Documented On 4 4:57PM ; [facility] Clinical summary provided to patient Last Documented On 4 4:45PM ; [facility] PHQ-9: total score 2 Last Documented On 4 12:11PM ; [facility] Medical History Includes: Medical History addressed during this encounter Description Last Updated Primary Care Provider: Dr. Nahed Lee -- Josiah Lujan -- Neurologist Dr. Rafita Salguero/Dr. Víctor Pichardo -Urologist -- [facility] Dr. Stephan Osuna -- Ophthamologist.Dr. [...] -- 09/2014, another lithotripsy done 12/17/16 -- [facility] (Dr. Pichardo) -- 06/2017 stones removed, 11/2017 stones removed at [facility] -- passed kidney stone at home 11/2018. Overactive bladder - and urge to urinate -- given Myrbetriq 25 mg and given Tamsulosin 0.4 mg 04/30/22 and 02/01/22. Hyperlipidemia. Diabetes mellitus. Contact dermatitis -- he took a steroid, antibiotic, benadryl. Arthritis - right hand -- appointment with Dr. Eduard Bañuelos [facility]. Restless legs syndrome. Narcolepsy --Dr. Conroy added Adderall 11/2014. Allergic reaction - unknown origin -- hospitalized at [facility] 09/27/20 -- given Epipen and [...] 201006/21/2023 Last Documented On 4 5:04PM ; [facility] Family History Includes: Family History addressed during this encounter Description Last Updated Family medical history: No significant f amily history 06/21/2023 Last Documented On 4 4:45PM ; [facility] Review of Systems Includes: Review of [...] Documented On 06/21/2023 4:56PM ; [facility] Note: Imported from external source. Cipro Allergy 12/20/2018 Active Last Documented On 06/21/2023 4:56PM ; [facility] Note: Imported from external source. Cipro Allergy Hives / Urticaria 12/20/2018 R esolved Last Documented On 3 4:47PM ; [facility] Aspartame Allergy Skin Rashes / Eruption of skin 06/29/2018 Active Last Documented On 06/21/2023 4:56PM ; [facility] Note: Imported from external source. Encounters Encounter Provider Location Date Check-In Time Check-Out Time Diagnosis TELEHEALTH ADULT PSYCH ESTABLISHED LUCY STILL MD [facility] 06/21/19 24 4:45PM 11:59PM Major Depression, Recurrent,Gene ralized Anxiety Disorder,Obses sive Compulsive Disorder,Narco lepsy,Restless Legs Syndrome,Nonor ganic Sleep Apnea Obstructive Insurance Includes: Active Insurance Policies Plan Name Member ID Group # Subscriber Relationship Effect refugio Dates 1 - [facility] [id number] MARYAM MUNOZ 03/10/2020 - Unknown Clinical Notes Includes: Clinical Notes from this encounter * Progress note Date Encounter Last Documented by 06/21/2023 TELEHEALTH ADULT PSYCH ESTABLISH ED Last documented on 07/11/2023; 8:45 PM, LUCY STILL MD; [facility] Top of Document Medication [...] planning to go for a trip to [facility] and [place]. Once they landed in [facility] last 03/26/2023 he felt sick and [...] Primary Care Provider: Dr. Nicola Lee -- [place] Dr. Sukhdev Lujan -- Neurologist Dr. Rafita Salguero/Dr. Víctor Pichardo -Urologist -- [facility] Dr. Stephan Osuna -- Ophthamologist. Dr. Ron Richards -- Tub Tender Diagnoses: mosquito-like bites or red spots on [...] -- 09/2014, another lithotripsy done 12/17/16 -- [facility] (Dr. Pichardo) -- 06/2017 stones removed, 11/2017 stones removed at [facility] -- passed kidney stone at home 11/2018. Overactive bladder - and urge to urinate -- given Myrbetriq 25 mg and given Tamsulosin 0.4 mg 04/30/22 and 02/01/22. Hyperlipidemia. Diabetes mellitus. Contact dermatitis -- he took a steroid, antibiotic, benadryl. Arthritis - right hand -- appointment with Dr. Eduard Bañuelos [facility]. Restless legs syndrome. Narcolepsy --Dr. Conroy added Adderall 11/2014. Allergic reaction - unknown origin -- hospitalized at [facility] 09/27/20 -- given Epipen and [...] PREVIOUS PSYCHIATRIC HOSPITALIZATIONS: He was treated at [facility] by Dr. Radames Boyer from [id number]. PREVIOUS PSYCHIATRIC TREATMENT: Dr. Radames Boyer from [id number]. PREVIOUS PSYCHIATRIC MEDICATIONS: Anafranil-caused weight gain Prozac, which he took for 2 years. These were given by Dr. Radames Boyer from [place]. Social History Tobacco use: Tobacco non-user. Caffeine use: No coffee consumption -- He drinks 1 can of diet soda and 1 glass of tea a day. Tobacco use: Smoking status: Never smoker. Alcohol: Not using alcohol. Drug Use: Not using drugs (Illicit). 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 Marital: Marital history -- . He [...] Clinical summary provided to patient. * Call [phone] and /or go to the nearest emergency [...] now sees a different sleep specialist in [place], [place] Dr. Lujan -- Modafinil 200 mg [...]
--- OUTSIDE RECORDS SUMMARY | 2024-05-29 18:39 | XMS_ITS | Clinical Summary ---
Author Organization [facility] Address [address] [place] [address] Phone Care Team Providers Care Train Master Name Role Phone WILIAM PHILLIPS, LUCY JUNG [facility] [phone] Reason for Visit and Chief Complaint [Patient Encounter] Problems Includes: Problems addressed during this encounter and other active Problems All Visits Onset Date Resolved Date Provider Condition S tatus Narcolepsy 10/05/2014 Active Last Documented On 3 5:48PM ; [facility] Diabetes Mellitus 07/19/2012 Active Last Documented On 3 5:45PM ; [facility] 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 Last Documented On 3 5:45PM ; [facility] Major Depression, Recurrent 07/19/2012 Active Last Documented On 3 5:45PM ; [facility] Restless Legs Syndrome 07/19/2012 Ac tive Last Documented On 3 5:45PM ; [facility] Obsessive Compulsive Disorder 03/08/2012 Active Last Documented On 3 5:50PM ; [facility] Generalized Anxiety Disorder 03/08/2012 Active Last Documented On 3 5:42PM ; [facility] Gerd 03/08/2012 Active Last Documented On 3 5:42PM ; [facility] Hyperlipidemia 03/08/2012 Active Last Documented On 3 5:42PM ; [facility] Nephrolithiasis 03/08/2012 Active Last Documented On 3 5:42PM ; [facility] Plan of Treatment Future Appointments Date Time Location Provi conrad TELEHEALTH ADULT PSYCH ESTABLISHED 06/20/2024 4:40PM [facility] LUCY STILL MD Last Documented On 5:56PM ; [facility] Assessments Includes: Assessments from this encounter [...] 07/03/2022 5:27PM By Yajaira Still MD ; [facility] Current Medications (continue as [...] 06/20/2023 10:49AM By Yajaira Still MD ; [facility] Pramipexole Dihydrochloride 1 MG Oral Tablet 04/20/2023 Provider: NICOLA Archibald Diagnosis: 1 and 1/2 tab in the evening Last Documented On 06/21/2023 5:48PM By Yajaira Still MD ; [facility] Fish Oil 1200 MG Oral Capsule 12/23/2022 Provider: Diagnosis: 3 caps daily Last Documented On 12/23/2022 4:48PM By ELISEO BARCENAS ; [facility] oxyBUTYnin Chloride ER 15 MG Oral Tablet Extended Release 24 Hour 11/15/2022 Provider: LAYO RUGGIERO MD Diagnosis: 1 tab daily Last Documented On 12/23/2022 4:48PM By ELISEO BARCENAS ; [facility] Januvia 100 MG OR TABS 10/02/2021 Provider: Diagnosis: 1 tab daily Last Documented On 07/03/2022 5:27PM By ELISEO BARCENAS ; [facility] FeroSul 325 (65 Fe) MG OR TABS 05/28/2021 Provider: Diagnosis: 1 tab daily Last Documented On 07/03/2022 5:27PM By ELISEO BARCENAS ; [facility] EPINEPHrine 0.3 MG/0.3ML IJ SOAJ 2020 Provider : Diagnosis: use as directed Last Documented On 07/03/2022 5:27PM By ELISEO BARCENAS ; [facility] Rosuvastatin Calcium 10 MG OR TABS 06/18/2019 Provid er: Diagnosis: one tablet daily Last Documented On 07/03/2022 5:27PM By JENNIFER CARMICHAEL ; [facility] Modafinil 200 MG OR TABS 07/24/2018 Provider: MET SHELDON STILL MD Diagnosis: Obstructive slee p apnea (adult) (pediatric) as directed -- 1 tab in am Last Documented On 07/03/2022 5:27PM By Yajaira Still MD ; [facility] Amphetamine-Dextroamphetamin e 30 MG OR TABS 01/01/2016 Provider: LUCY STILL MD Diagnosis: Sleep apnea, unspecified as directed Take 1/2 tablet in am and 1/2 tab at 2: 30 pm Last Documented On 07/03/2022 5:27PM By Yajaira Still MD ; [facility] Vitamin D-3 25 MCG (1000 UT) OR TABS 01/01/2015 P rovider: Diagnosis: Last Documented On 07/03/2022 5:27PM By Yajaira Still MD ; [facility] metFORMIN HCl 1000 MG TABS 07/19/2012 Provider: Diagnosis: Last Documented On 07/03/2022 5:27PM By VALENTINO GOLD ; [facility] Omeprazole 20 MG OR CPDR 03/08/2012 Provider: Diagnosis: Last Documented On 07/03/2022 5:27PM By VALENTINO GOLD ; [facility] Medications Administered Includes: Administered [...] vitals Last Documented: On 07/03/2022 6:00PM ; [facility] Results Includes: Results discussed [...] Active Last Documented On 06/21/2023 4:56PM ; [facility] Note: Imported from external source. Cipro Allergy 12/20/2018 Active Last Documented On 06/21/2023 4:56PM ; [facility] Note: Imported from external source. Cipro Allergy Hives / Urticaria 12/20/2018 R esolved Last Documented On 4:47PM ; [facility] Aspartame Allergy Skin Rashes / Eruption of skin 06/29/2018 Active Last Documented On 06/21/2023 4:56PM ; [facility] Note: Imported from external source. Encounters Encounter Provider Location Date Check-In Time Check-Out Time Diagnosis [Patient Encounter] 06/16/2021 12:00AM 11:59PM Insurance Includes: Active Insurance Policies Plan Name Member ID Group # Subscriber Relationship Effect refugio Dates 1 - [facility] [id number] MARYAM MUNOZ 03/10/2020 - Unknown Clinical Notes Includes: Clinical Notes from this encounter No Clinical Notes Recorded
--- OUTSIDE RECORDS SUMMARY | 2024-05-29 18:39 | XMS_ITS | Referral Summary ---
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 ASSISTANT Gender Identity Male 01/13/2019 7:57 PM INTERNET MARKETING ASSISTANT Sexual Orientation Straight 01/13/2019 7: 57 PM INTERNET MARKETING ASSISTANT Last Filed Vital Signs Vital Sign [...] LIPID PANEL Routine 04/07/2013 8:4 5 PM INTERNET MARKETING ASSISTANT from Last 3 Months or Most Recently Relevant to Health Maintenance Results * COLONOSCOPY (07/28/2018 9:02 AM CDT) Anatomical Region Laterality Modality Other Narrative Procedure Note Ramo eMza MD - 07/28/2018 9:02 AM CDT [facility] Patient Name: Chuy Mitchell Procedure Date: 07/28/2018 9:02 AM Date of : 1965 Admit Type: Outpatient Age: 52 Gender: Male Attending MD: Ramo Meza M.D. Room: [facility] ENDOSCOPY ROOM 1 Note Status: Finalized Patient [...] passed under direct vision.The Pediatric Colonoscope [id number] was introduced through the anus and advanced [...] 9:02 AM Procedure Code(s): --- Professional --- 69642, Colonoscopy, flexible; with biopsy, single or multiple Diagnosis Code(s): --- Professional --- Z80.0, Family history of malignant neoplasm of digestive organs Z86.010, Personal history of colonic polyps K64.8, Other hemorrhoids D12.5, Benign neoplasm of sigmoid colon K57.30, Diverticulosis of large intestine without perforation orabscess without bleeding CPT copyright 2017 [employer]. All rights reserved. The codes documented in this report are preliminary and upon broadcast transmitter operator reviewmay be revised to meet current compliance requirements. Recognized by the [employer] for promoting quality in endoscopy Ramo Meza MD ENDOSCOPY PROCEDURES Final Result * eGFR (12/12/2016 11:06 AM CDT) eGFR >60 mL/min/1.7 3 m2 [facility] ([place] Comment: Interpretive Data Reference Interval Normal >/= 90 mL/min/1.73m2 Mildly decreased* 60 - 89 mL/min/1.73m2 Mildly to moderately decreased 45 - 59 mL/min/1.73m2 Moderately to severely decreased 30 - 44 mL/min/1.73m2 Severely decreased 15 - 29 mL/min/1.73m2 Kidney Failure < 15 mL/min/1.73m2 *Relative to young adult level If -[place] multiply value by 1.16. Estimated glomerular filtration [...] BLOOD ORDERABLES Final Resul t [facility] ([place]) [facility] Department of Laboratories [place], [place] [id number] * (ABNORMAL) Serum lipid panel (04/07/2013 8:45 PM INTERNET MARKETING ASSISTANT) LDL 54 0 - 129 mg/dl [...] revised on 2007. Serum 04/07/2013 8:45 PM INTERNET MARKETING ASSISTANT Edgar Pratt MD LAB BLOOD ORDERABLES Final Resul t HISTORICAL RESULTS from Last 3 Months or Most Recently Relevant to Health Maintenance Insurance [facility] Address: [address] [address] [facility] [employer] [facility] Address: [address] [address] [facility] [employer] [facility] Address: [address] [address] Care Teams Supervisor Pre Wave Relationship Specialty Start Date End Date Giorgio Lee MD PCP - General 06/04/16
--- OUTSIDE RECORDS SUMMARY | 2024-05-29 18:40 | XMS_ITS ---
Author Organization 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 Nahed STILL MD Active Last Documented On 3 5:05PM ; [facility] Major Depression, Recurrent 07/19/2012 LUCY [...] Documented On 3 2:58PM ; [facility] Gerd 03/08/2012 LUCY STILL MD Ac tive Last Documented On 3 2:55PM ; [facility] Hyperlipidemia 03/08/2012 LUCY Archibald Active Last Documented On 3 2:56PM ; [facility] Obsessive Compulsive Disorder 03/08/2012 BRADLEY STILL MD Inactive Last Documented On 7 9:03PM ; [facility] Nephrolithiasis 03/08/2012 LUCY STILL MD Active Last Documented On 3 2:58PM ; [facility] Plan of Treatment Instructions to patient Lose weight Last Documented On 1 4:49PM ; [facility] Lose weight Last Documented On 1 4:56PM ; [facility] Education and Decision Aids were provided during visit for: Patient education about medi cation ---Education was given on medication(s) and diagnosis. I reviewed the risks, benefits and side effects of patient's medications Last Documented On 3 4:33PM ; [facility] Patient education about medi cation ---Education was given on medication(s) and diagnosis. I reviewed the risks, benefits and side effects of patient's medications. Pt reported no side effects with meds Last Documented On 2 7:18PM ; [facility] Patient education about medi cation --- I educated patient on medication(s) and diagnosis. I reviewed the risks, benefits and side effects of patient's medications Last Documented On 2 4:43PM ; [facility] Discussed calming techniques such as breathing exercises and other relaxation techniques Last Documented On 2 4:43PM ; [facility] Counseling for nutrition/rodrigo ght management provided Last Documented On 2 4:55PM ; [facility] Patient education about medi cation --- I educated patient on medication(s) and diagnosis. I reviewed the risks, benefits and side effects of patient's medications Last Documented On 1 4:34PM ; [facility] Discussed calming techniques such as breathing exercises and other relaxation techniques Last Documented On 1 4:34PM ; [facility] Counseling for nutrition/rodrigo ght management provided Last Documented On 1 4:49PM ; [facility] Patient education about medi cation --- I educated patient on medication(s) and diagnosis. I reviewed the risks, benefits and side effects of patient's medications Last Documented On 1 4:39PM ; [facility] Discussed calming techniques such as breathing exercises and other relaxation techniques Last Documented On 1 4:39PM ; [facility] Counseling for nutrition/rodrigo ght management provided Last Documented On 1 4:56PM ; [facility] Patient education about medi cation --- I educated patient on medication(s) and diagnosis. I reviewed the risks, benefits and side effects of patient's medications Last Documented On 0 4:36PM ; [facility] Discussed calming techniques such as breathing exercises and other relaxation techniques Last Documented On 0 4:36PM ; [facility] Counseling for nutrition/rodrigo ght management provided Last Documented On 0 4:51PM ; [facility] Patient education about a pr oper diet Last Documented On 0 8:27AM ; [facility] Patient education about medi cation --- I educated patient on medication(s) and diagnosis. I reviewed the risks, benefits and side effects of patient's medications Last Documented On 0 4:39PM ; [facility] Discussed calming techniques such as breathing exercises and other relaxation techniques Last Documented On 0 4:39PM ; [facility] Patient education about a pr oper diet Last Documented On 9 4:47PM ; [facility] Patient education about medi cation --- I educated patient on medication(s) and diagnosis. I reviewed the risks, benefits and side effects of patient's medications Last Documented On 9 4:34PM ; [facility] Discussed calming techniques such as breathing exercises and other relaxation techniques Last Documented On 9 4:34PM ; [facility] Patient education about a pr oper diet Last Documented On 9 4:52PM ; [facility] Patient education about medi cation --- I educated patient on medication(s) and diagnosis. I reviewed the risks, benefits and side effects of patient's medications Last Documented On 9 4:31PM ; [facility] Discussed calming techniques such as breathing exercises and other relaxation techniques Last Documented On 9 4:31PM ; [facility] Counseling for nutrition/rodrigo ght management provided Last Documented On 9 4:52PM ; [facility] Patient education about a pr oper diet Last Documented On 8 4:33PM ; [facility] Patient education about medi cation --- I educated patient on medication(s) and diagnosis. I reviewed the risks, benefits and side effects of patient's medications Last Documented On 8 4:32PM ; [facility] Counseling for nutrition/rodrigo ght management provided Last Documented On 8 2:20PM ; [facility] Discussed good sleep hygiene habits --was encouraged not to stay up late at night Last Documented On 8 2:20PM ; [facility] Patient education about medi cation --- I educated patient on medication(s) and diagnosis. I reviewed the risks, benefits and side effects of patient's medications Last Documented On 8 4:38PM ; [facility] Discussed calming techniques such as breathing exercises and other relaxation techniques Last Documented On 8 4:38PM ; [facility] Counseling for nutrition/rodrigo ght management provided Last Documented On 8 7:11AM ; [facility] Patient education about medi cation --- I educated patient on medication(s) and diagnosis. I reviewed the risks, benefits and side effects of patient's medications Last Documented On 7 4:32PM ; [facility] Discussed calming techniques such as breathing exercises and other relaxation techniques Last Documented On 7 4:32PM ; [facility] Counseling for nutrition/rodrigo ght management provided Last Documented On 7 8:56AM ; [facility] Patient education about medi cation --- I educated patient on medication(s) and diagnosis. I reviewed the risks, benefits and side effects of patient's medications Last Documented On 7 4:34PM ; [facility] Discussed calming techniques such as breathing exercises/meditation and other relaxation techniques Last Documented On 7 4:34PM ; [facility] Counseling for nutrition/rodrigo ght management provided Last Documented On 7 12:10PM ; [facility] Patient education about medi cation --- I educated patient on medication(s) and diagnosis. I reviewed the risks, benefits and side effects of patient's medications Last Documented On 6 4:32PM ; [facility] Discussed calming techniques such as breathing exercises/meditation and other relaxation techniques Last Documented On 6 4:32PM ; [facility] Counseling for nutrition/rodrigo ght management provided Last Documented On 6 9:43AM ; [facility] Patient education about medi cation --- I educated patient on medication(s) and diagnosis. I reviewed the risks, benefits and side effects of patient's medications Last Documented On 6 4:34PM ; [facility] Discussed calming techniques such as breathing exercises/meditation and other relaxation techniques Last Documented On 6 4:34PM ; [facility] Counseling for nutrition/rodrigo ght management provided Last Documented On 6 5:44PM ; [facility] Patient education about medi cation --- I educated patient on medication(s) and diagnosis. I reviewed the risks, benefits and side effects of patient's medications Last Documented On 5 2:03PM ; [facility] Discussed calming techniques such as breathing exercises/meditation and other relaxation techniques Last Documented On 5 2:03PM ; [facility] Counseling for nutrition/rodrigo ght management provided Last Documented On 5 6:24AM ; [facility] Discussed good sleep hygiene habits Last Documented On 5 6:24AM ; [facility] Patient education about medi cation --- I educated patient on medication(s) and diagnosis. I reviewed the risks, benefits and side effects of patient's medications Last Documented On 5 6:30PM ; [facility] Discussed calming techniques such as breathing exercises/meditation and other relaxation techniques Last Documented On 5 4:34PM ; [facility] Counseling for nutrition/rodrigo ght management provided Last Documented On 5 5:33PM ; [facility] Patient education about medi cation --- I educated patient on medication(s) and diagnosis. I reviewed the risks, benefits and side effects of patient's medications Last Documented On 4 6:15PM ; [facility] Discussed calming techniques such as breathing exercises/meditation and other relaxation techniques Last Documented On 4 4:38PM ; [facility] Counseling for nutrition/rodrigo ght management provided Last Documented On 4 6:15PM ; [facility] Patient education about medi cation --- I educated patient on medication(s) and diagnosis. I reviewed the risks, benefits and side effects of patient's medications Last Documented On 4 11:38PM ; [facility] Discussed calming techniques such as breathing exercises/meditation and other relaxation techniques Last Documented On 4 4:36PM ; [facility] Counseling for nutrition/rodrigo ght management provided Last Documented On 4 11:38PM ; [facility] Patient education about medi cation --- I educated patient on medication(s) and diagnosis Last Documented On 3 7:02PM ; [facility] Discussed calming techniques such as breathing exercises/meditation and other relaxation techniques Last Documented On 3 4:30PM ; [facility] Discussed calming techniques such as breathing exercises/meditation and other relaxation techniques Last Documented On 3 4:32PM ; [facility] Assessments Includes: Assessments for all patient encounters Findings Encounter Date Generalized anxiety disorder TELEHEALTH with MET SHELDON STILL MD 06/23/2022 Last Documented On 3 8:00AM ; [facility] Major depression, recurrent TELEHEALTH with BRIONNA STILL MD 06/23/2022 Last Documented On 3 8:00AM ; [facility] Obsessive compulsive disorder TELEHEALTH with ME EMANI STILL MD 06/23/2022 Last Documented On 3 8:00AM ; [facility] Restless legs syndrome TELEHEALTH with LUCY STILL MD 06/23/2022 Last Documented On 3 8:00AM ; [facility] Generalized anxiety disorder TELEHEALTH with MET SHELDON STILL MD 12/23/2021 Last Documented On 2 7:20PM ; [facility] Major depression, recurrent TELEHEALTH with BRIONNA STILL MD 12/23/2021 Last Documented On 2 7:20PM ; [facility] Obsessive compulsive disorder TELEHEALTH with ME EMANI STILL MD 12/23/2021 Last Documented On 2 7:20PM ; [facility] Restless legs syndrome TELEHEALTH with LUCY STILL MD 12/23/2021 Last Documented On 2 7:20PM ; [facility] Generalized anxiety disorder TELEHEALTH with MET SHELDON STILL MD 06/16/2021 Last Documented On 2 10:34AM ; [facility] Major depression, recurrent TELEHEALTH with BRIONNA STILL MD 06/16/2021 Last Documented On 2 10:34AM ; [facility] Obsessive compulsive disorder TELEHEALTH with ME EMANI STILL MD 06/16/2021 Last Documented On 2 10:34AM ; [facility] Restless legs syndrome TELEHEALTH with LUCY STILL MD 06/16/2021 Last Documented On 2 10:34AM ; [facility] Generalized anxiety disorder * PHONE CALL with Nahed STILL MD 03/17/2021 Last Documented On 2 2:57PM ; [facility] Major depression, recurrent * PHONE CALL with ME EMANI STILL MD 03/17/2021 Last Documented On 2 2:57PM ; [facility] Obsessive compulsive disorder * PHONE CALL with LUCY STILL MD 03/17/2021 Last Documented On 2 2:57PM ; [facility] Restless legs syndrome * PHONE CALL with LUCY STILL MD 03/17/2021 Last Documented On 2 2:57PM ; [facility] Generalized anxiety disorder TELEHEALTH with MET SHELDON STILL MD 12/18/2020 Last Documented On 1 8:13AM ; [facility] Major depression, recurrent TELEHEALTH with BRIONNA STILL MD 12/18/2020 Last Documented On 1 8:13AM ; [facility] Obsessive compulsive disorder TELEHEALTH with ME EMANI STILL MD 12/18/2020 Last Documented On 1 8:13AM ; [facility] Restless legs syndrome TELEHEALTH with LUCY STILL MD 12/18/2020 Last Documented On 1 8:13AM ; [facility] Generalized anxiety disorder TELEHEALTH with MET SHELDON STILL MD 06/19/2020 Last Documented On 1 9:21AM ; [facility] Major depression, recurrent TELEHEALTH with BRIONNA STILL MD 06/19/2020 Last Documented On 1 9:21AM ; [facility] Obsessive compulsive disorder TELEHEALTH with ME EMANI STILL MD 06/19/2020 Last Documented On 1 9:21AM ; [facility] Restless legs syndrome TELEHEALTH with LUCY STILL MD 06/19/2020 Last Documented On 1 9:21AM ; [facility] Generalized anxiety disorder TELEHEALTH with MET SHELDON TSILL MD 12/20/2019 Last Documented On 1 11:49PM ; [facility] Major depression, recurrent TELEHEALTH with BRIONNA STILL MD 12/20/2019 Last Documented On 1 11:49PM ; [facility] Obsessive compulsive disorder TELEHEALTH with ME EMANI STILL MD 12/20/2019 Last Documented On 1 11:49PM ; [facility] Restless legs syndrome TELEHEALTH with LUCY STILL MD 12/20/2019 Last Documented On 1 11:49PM ; [facility] Generalized anxiety disorder TELEHEALTH with MET SHELDON STILL MD 06/20/2019 Last Documented On 0 8:36AM ; [facility] Major depression, recurrent TELEHEALTH with BRIONNA STILL MD 06/20/2019 Last Documented On 0 8:36AM ; [facility] Obsessive compulsive disorder TELEHEALTH with ME EMANI STILL MD 06/20/2019 Last Documented On 0 8:36AM ; [facility] Restless legs syndrome TELEHEALTH with LUCY STILL MD 06/20/2019 Last Documented On 0 8:36AM ; [facility] Generalized anxiety disorder GENERAL OFF ICE VISIT with LUCY STILL MD 12/20/2018 Last Documented On 9 6:10PM ; [facility] Major depression, recurrent GENERAL OFFI CE VISIT with LUCY STILL MD 12/20/2018 Last Documented On 9 6:10PM ; [facility] Obsessive compulsive disorder GENERAL OF FICE VISIT with LUCY STILL MD 12/20/2018 Last Documented On 9 6:10PM ; [facility] Obstructive sleep apnea GENERAL OFFICE VISIT wit h LUCY STILL MD 12/20/2018 Last Documented On 9 6:10PM ; [facility] Generalized anxiety disorder GENERAL OFF ICE VISIT with LUCY STILL MD 06/29/2018 Last Documented On 9 7:45AM ; [facility] Major depression, recurrent GENERAL OFFI CE VISIT with LUCY STILL MD 06/29/2018 Last Documented On 9 7:45AM ; [facility] Obsessive compulsive disorder GENERAL OF FICE VISIT with LUCY STILL MD 06/29/2018 Last Documented On 9 7:45AM ; [facility] Obstructive sleep apnea GENERAL OFFICE VISIT wit h LUCY STILL MD 06/29/2018 Last Documented On 9 7:45AM ; [facility] Generalized anxiety disorder GENERAL OFF ICE VISIT with LUCY STILL MD 12/29/2017 Last Documented On 8 2:27PM ; [facility] Major depression, recurrent GENERAL OFFI CE VISIT with LUCY STILL MD 12/29/2017 Last Documented On 8 2:27PM ; [facility] Obsessive compulsive disorder GENERAL OF FICE VISIT with LUCY STILL MD 12/29/2017 Last Documented On 8 2:27PM ; [facility] Obstructive sleep apnea GENERAL OFFICE VISIT wit h LUCY STILL MD 12/29/2017 Last Documented On 8 2:27PM ; [facility] Generalized anxiety disorder GENERAL OFF ICE VISIT with LUCY STILL MD 06/29/2017 Last Documented On 8 7:12AM ; [facility] Major depression, recurrent GENERAL OFFI CE VISIT with LUCY STILL MD 06/29/2017 Last Documented On 8 7:12AM ; [facility] Obsessive compulsive disorder GENERAL OF FICE VISIT with LUCY STILL MD 06/29/2017 Last Documented On 8 7:12AM ; [facility] Obstructive sleep apnea GENERAL OFFICE VISIT wit LUCY STILL MD 06/29/2017 Last Documented On 8 7:12AM ; [facility] Major depression, recurrent * PHONE CALL with ME EMANI STILL MD 04/26/2017 Last Documented On 8 6:21PM ; [facility] Generalized anxiety disorder GENERAL OFF ICE VISIT with LUCY STILL MD 12/30/2016 Last Documented On 7 9:36AM ; [facility] Major depression, recurrent GENERAL OFFI CE VISIT with LUCY STILL MD 12/30/2016 Last Documented On 7 9:36AM ; [facility] Obsessive compulsive disorder GENERAL OF FICE VISIT with LUCY STILL MD 12/30/2016 Last Documented On 7 9:36AM ; [facility] Obstructive sleep apnea GENERAL OFFICE VISIT wit h LUCY STILL MD 12/30/2016 Last Documented On 7 9:36AM ; [facility] Generalized anxiety disorder GENERAL OFF ICE VISIT with LUCY STILL MD 06/29/2016 Last Documented On 7 12:21PM ; [facility] Major depression, recurrent GENERAL OFFI CE VISIT with LUCY STILL MD 06/29/2016 Last Documented On 7 12:21PM ; [facility] Obsessive compulsive disorder GENERAL OF FICE VISIT with LUCY STILL MD 06/29/2016 Last Documented On 7 12:21PM ; [facility] Obstructive sleep apnea GENERAL OFFICE VISIT wit h LUCY STILL MD 06/29/2016 Last Documented On 7 12:21PM ; [facility] Generalized anxiety disorder GENERAL OFF ICE VISIT with LUCY STILL MD 01/01/2016 Last Documented On 6 9:45AM ; [facility] Major depression, recurrent GENERAL OFFI CE VISIT with LUCY STILL MD 01/01/2016 Last Documented On 6 9:45AM ; [facility] Obsessive compulsive disorder GENERAL OF FICE VISIT with LUCY STILL MD 01/01/2016 Last Documented On 6 9:45AM ; [facility] Obstructive sleep apnea GENERAL OFFICE VISIT wit h LUCY STILL MD 01/01/2016 Last Documented On 6 9:45AM ; [facility] Generalized anxiety disorder GENERAL OFF ICE VISIT with LUCY STILL MD 07/01/2015 Last Documented On 6 7:59PM ; [facility] Major depression, recurrent GENERAL OFFI CE VISIT with LUCY STILL MD 07/01/2015 Last Documented On 6 7:59PM ; [facility] Obsessive compulsive disorder GENERAL OF FICE VISIT with LUCY SITLL MD 07/01/2015 Last Documented On 6 7:59PM ; [facility] Obstructive sleep apnea GENERAL OFFICE VISIT wit h LUCY STILL MD 07/01/2015 Last Documented On 6 7:59PM ; [facility] Obstructive sleep apnea SECURE MESSAGE with [place] EMANI STILL MD 03/31/2015 Last Documented On 6 1:09PM ; [facility] Generalized anxiety disorder GENERAL OFF ICE VISIT with LUCY STILL MD 01/01/2015 Last Documented On 5 6:30AM ; [facility] Major depression, recurrent GENERAL OFFI CE VISIT with LUCY STILL MD 01/01/2015 Last Documented On 5 6:30AM ; [facility] Obsessive compulsive disorder GENERAL OF FICE VISIT with LUCY STILL MD 01/01/2015 Last Documented On 5 6:30AM ; [facility] Obstructive sleep apnea GENERAL OFFICE VISIT wit h LUCY STILL MD 01/01/2015 Last Documented On 5 6:30AM ; [facility] Generalized anxiety disorder GENERAL OFF ICE VISIT with LUCY STILL MD 07/18/2014 Last Documented On 5 6:36PM ; [facility] Major depression, recurrent GENERAL OFFI CE VISIT with LUCY STILL MD 07/18/2014 Last Documented On 5 6:36PM ; [facility] Obsessive compulsive disorder GENERAL OF FICE VISIT with LUCY STILL MD 07/18/2014 Last Documented On 5 6:36PM ; [facility] Obstructive sleep apnea GENERAL OFFICE VISIT wit h LUCY STILL MD 07/18/2014 Last Documented On 5 6:36PM ; [facility] Generalized anxiety disorder GENERAL OFF ICE VISIT with LUCY STILL MD 01/18/2014 Last Documented On 4 6:16PM ; [facility] Major depression, recurrent GENERAL OFFI CE VISIT with LUCY STILL MD 01/18/2014 Last Documented On 4 6:16PM ; [facility] Obsessive compulsive disorder GENERAL OF FICE VISIT with LUCY STILL MD 01/18/2014 Last Documented On 4 6:16PM ; [facility] Obstructive sleep apnea GENERAL OFFICE VISIT wit h LUCY STILL MD 01/18/2014 Last Documented On 4 6:16PM ; [facility] Generalized anxiety disorder GENERAL OFF ICE VISIT with LUCY STILL MD 07/17/2013 Last Documented On 4 11:39PM ; [facility] Major depression, recurrent GENERAL OFFI CE VISIT with LUCY STILL MD 07/17/2013 Last Documented On 4 11:39PM ; [facility] Obsessive compulsive disorder GENERAL OF FICE VISIT with LUCY STILL MD 07/17/2013 Last Documented On 4 11:39PM ; [facility] Obstructive sleep apnea GENERAL OFFICE VISIT wit h LUCY STILL MD 07/17/2013 Last Documented On 4 11:39PM ; [facility] Generalized anxiety disorder GENERAL OFF ICE VISIT with LUCY STILL MD 01/17/2013 Last Documented On 3 7:21PM ; [facility] Major depression, recurrent GENERAL OFFI CE VISIT with LUCY STILL MD 01/17/2013 Last Documented On 3 7:21PM ; [facility] Obsessive compulsive disorder GENERAL OF FICE VISIT with LUCY STILL MD 01/17/2013 Last Documented On 3 7:21PM ; [facility] Obstructive sleep apnea GENERAL OFFICE VISIT wit h LUCY STILL MD 01/17/2013 Last Documented On 3 7:21PM ; [facility] Restless legs syndrome GENERAL OFFICE VISIT with LUCY STILL MD 01/17/2013 Last Documented On 3 7:21PM ; [facility] Generalized anxiety disorder GENERAL OFF ICE VISIT with LUCY STILL MD 07/19/2012 Last Documented On 3 5:41PM ; [facility] Major depression, recurrent GENERAL OFFI CE VISIT with LUCY STILL MD 07/19/2012 Last Documented On 3 5:41PM ; [facility] Obsessive compulsive disorder GENERAL OF FICE VISIT with LUCY STILL MD 07/19/2012 Last Documented On 3 5:41PM ; [facility] Obstructive sleep apnea GENERAL OFFICE VISIT wit h LUCY STILL MD 07/19/2012 Last Documented On 3 5:41PM ; [facility] Restless legs syndrome GENERAL OFFICE VISIT with LUCY STILL MD 07/19/2012 Last Documented On 3 5:41PM ; [facility] Instructions Includes: Instructions for all patient encounters Instructions to patient Lose weight Last Documented On 1 4:49PM ; [facility] Lose weight Last Documented On 1 4:56PM ; [facility] Education and Decision Aids were provided during visit for: Patient education about medi cation ---Education was given on medication(s) and diagnosis. I reviewed the risks, benefits and side effects of patient's medications Last Documented On 3 4:33PM ; [facility] Patient education about medi cation ---Education was given on medication(s) and diagnosis. I reviewed the risks, benefits and side effects of patient's medications. Pt reported no side effects with meds Last Documented On 2 7:18PM ; [facility] Patient education about medi cation --- I educated patient on medication(s) and diagnosis. I reviewed the risks, benefits and side effects of patient's medications Last Documented On 2 4:43PM ; [facility] Discussed calming techniques such as breathing exercises and other relaxation techniques Last Documented On 2 4:43PM ; [facility] Counseling for nutrition/rodrigo ght management provided Last Documented On 2 4:55PM ; [facility] Patient education about medi cation --- I educated patient on medication(s) and diagnosis. I reviewed the risks, benefits and side effects of patient's medications Last Documented On 1 4:34PM ; [facility] Discussed calming techniques such as breathing exercises and other relaxation techniques Last Documented On 1 4:34PM ; [facility] Counseling for nutrition/rodrigo ght management provided Last Documented On 1 4:49PM ; [facility] Patient education about medi cation --- I educated patient on medication(s) and diagnosis. I reviewed the risks, benefits and side effects of patient's medications Last Documented On 1 4:39PM ; [facility] Discussed calming techniques such as breathing exercises and other relaxation techniques Last Documented On 1 4:39PM ; [facility] Counseling for nutrition/rodrigo ght management provided Last Documented On 1 4:56PM ; [facility] Patient education about medi cation --- I educated patient on medication(s) and diagnosis. I reviewed the risks, benefits and side effects of patient's medications Last Documented On 0 4:36PM ; [facility] Discussed calming techniques such as breathing exercises and other relaxation techniques Last Documented On 0 4:36PM ; [facility] Counseling for nutrition/rodrigo ght management provided Last Documented On 0 4:51PM ; [facility] Patient education about a pr oper diet Last Documented On 0 8:27AM ; [facility] Patient education about medi cation --- I educated patient on medication(s) and diagnosis. I reviewed the risks, benefits and side effects of patient's medications Last Documented On 0 4:39PM ; [facility] Discussed calming techniques such as breathing exercises and other relaxation techniques Last Documented On 0 4:39PM ; [facility] Patient education about a pr oper diet Last Documented On 9 4:47PM ; [facility] Patient education about medi cation --- I educated patient on medication(s) and diagnosis. I reviewed the risks, benefits and side effects of patient's medications Last Documented On 9 4:34PM ; [facility] Discussed calming techniques such as breathing exercises and other relaxation techniques Last Documented On 9 4:34PM ; [facility] Patient education about a pr oper diet Last Documented On 9 4:52PM ; [facility] Patient education about medi cation --- I educated patient on medication(s) and diagnosis. I reviewed the risks, benefits and side effects of patient's medications Last Documented On 9 4:31PM ; [facility] Discussed calming techniques such as breathing exercises and other relaxation techniques Last Documented On 9 4:31PM ; [facility] Counseling for nutrition/rodrigo ght management provided Last Documented On 9 4:52PM ; [facility] Patient education about a pr oper diet Last Documented On 8 4:33PM ; [facility] Patient education about medi cation --- I educated patient on medication(s) and diagnosis. I reviewed the risks, benefits and side effects of patient's medications Last Documented On 8 4:32PM ; [facility] Counseling for nutrition/rodrigo ght management provided Last Documented On 8 2:20PM ; [facility] Discussed good sleep hygiene habits --was encouraged not to stay up late at night Last Documented On 8 2:20PM ; [facility] Patient education about medi cation --- I educated patient on medication(s) and diagnosis. I reviewed the risks, benefits and side effects of patient's medications Last Documented On 8 4:38PM ; [facility] Discussed calming techniques such as breathing exercises and other relaxation techniques Last Documented On 8 4:38PM ; [facility] Counseling for nutrition/rodrigo ght management provided Last Documented On 8 7:11AM ; [facility] Patient education about medi cation --- I educated patient on medication(s) and diagnosis. I reviewed the risks, benefits and side effects of patient's medications Last Documented On 7 4:32PM ; [facility] Discussed calming techniques such as breathing exercises and other relaxation techniques Last Documented On 7 4:32PM ; [facility] Counseling for nutrition/rodrigo ght management provided Last Documented On 7 8:56AM ; [facility] Patient education about medi cation --- I educated patient on medication(s) and diagnosis. I reviewed the risks, benefits and side effects of patient's medications Last Documented On 7 4:34PM ; [facility] Discussed calming techniques such as breathing exercises/meditation and other relaxation techniques Last Documented On 7 4:34PM ; [facility] Counseling for nutrition/rodrigo ght management provided Last Documented On 7 12:10PM ; [facility] Patient education about medi cation --- I educated patient on medication(s) and diagnosis. I reviewed the risks, benefits and side effects of patient's medications Last Documented On 6 4:32PM ; [facility] Discussed calming techniques such as breathing exercises/meditation and other relaxation techniques Last Documented On 6 4:32PM ; [facility] Counseling for nutrition/rodrigo ght management provided Last Documented On 6 9:43AM ; [facility] Patient education about medi cation --- I educated patient on medication(s) and diagnosis. I reviewed the risks, benefits and side effects of patient's medications Last Documented On 6 4:34PM ; [facility] Discussed calming techniques such as breathing exercises/meditation and other relaxation techniques Last Documented On 6 4:34PM ; [facility] Counseling for nutrition/rodrigo ght management provided Last Documented On 6 5:44PM ; [facility] Patient education about medi cation --- I educated patient on medication(s) and diagnosis. I reviewed the risks, benefits and side effects of patient's medications Last Documented On 5 2:03PM ; [facility] Discussed calming techniques such as breathing exercises/meditation and other relaxation techniques Last Documented On 5 2:03PM ; [facility] Counseling for nutrition/rodrigo ght management provided Last Documented On 5 6:24AM ; [facility] Discussed good sleep hygiene habits Last Documented On 5 6:24AM ; [facility] Patient education about medi cation --- I educated patient on medication(s) and diagnosis. I reviewed the risks, benefits and side effects of patient's medications Last Documented On 5 6:30PM ; [facility] Discussed calming techniques such as breathing exercises/meditation and other relaxation techniques Last Documented On 5 4:34PM ; [facility] Counseling for nutrition/rodrigo ght management provided Last Documented On 5 5:33PM ; [facility] Patient education about medi cation --- I educated patient on medication(s) and diagnosis. I reviewed the risks, benefits and side effects of patient's medications Last Documented On 4 6:15PM ; [facility] Discussed calming techniques such as breathing exercises/meditation and other relaxation techniques Last Documented On 4 4:38PM ; [facility] Counseling for nutrition/rodrigo ght management provided Last Documented On 4 6:15PM ; [facility] Patient education about medi cation --- I educated patient on medication(s) and diagnosis. I reviewed the risks, benefits and side effects of patient's medications Last Documented On 4 11:38PM ; [facility] Discussed calming techniques such as breathing exercises/meditation and other relaxation techniques Last Documented On 4 4:36PM ; [facility] Counseling for nutrition/rodrigo ght management provided Last Documented On 4 11:38PM ; [facility] Patient education about medi cation --- I educated patient on medication(s) and diagnosis Last Documented On 3 7:02PM ; [facility] Discussed calming techniques such as breathing exercises/meditation and other relaxation techniques Last Documented On 3 4:30PM ; [facility] Discussed calming techniques such as breathing exercises/meditation and other relaxation techniques Last Documented On 3 4:32PM ; [facility] Medical Equipment - Implanted Devices Includes: Current and historical Devices No Medical Equipment Recorded Medications Includes: Current and historical Medications Current Medications (continue as prescribed) Paxil 40 MG Oral Tablet 06/23/2022 Provider: BRIONNA STILL MD Diagnosis: Obsessive-compul sive disorder, unspecified TAKE 1 AND 1/2 TABLETS BY [facility] DAILY DIRECTED Last Documented On 06/23/2022 5:34PM By Yajaira Still MD ; [facility] Gemtesa 75 MG Oral Tablet 06/23/2022 Provider: Diagnosis: 1 tab daily Last Documented On 06/23/2022 4:50PM By ELISEO JOHNSTONA ; [facility] Januvia 100 MG Oral Tablet 10/02/2021 Provider: Diagnosis: 1 tab daily Last Documented On 12/23/2021 4:46PM By ELISEO JOHNSTONA ; [facility] FeroSul 325 (65 Fe) MG Oral Tablet 05/28/2021 Provid er: Diagnosis: 1 tab daily Last Documented On 06/16/2021 4:55PM By ELISEO BARCENAS ; [facility] EPINEPHrine 0.3 MG/0.3ML Injection Solution Auto-injec tor 2020 Provider: Diagnosis: use as directed Last Documented On 12/18/2020 4:48PM By ELISEO BARCENAS ; [facility] Pramipexole Dihydrochloride 1 MG Oral Tablet 06/06/2020 Provider: NICOLA Archibald Diagnosis: patient takes 0.75 mg at bedtime Last Documented On 06/19/2020 4:58PM By ELISEO BARCENAS ; [facility] Rosuvastatin Calcium 10 MG Oral Tablet 06/18/2019 Pr ovider: NICOLA LEE MD Diagnosis: one tablet daily Last Documented On 06/20/2019 4:49PM By JENNIFER CARMICHAEL ; [facility] Modafinil 200MG Oral Tablet 07/24/2018 Provider: LUCY STILL MD Diagnosis: Obstructive slee p apnea (adult) (pediatric) as directed -- 1 tab in am Last Documented On 07/24/2018 7:44AM By Yajaira Still MD ; [facility] Amphetamine-Dextroamphetamin e 30 MG Tablet [...] [facility] Past Medications on file Paxil 40 MG Oral Tablet 06/16/2021 - 06/23/2022 Provider: LUCY STILL MD Diagnosis: Obsessive-compul sive disorder, unspecified TAKE 1 AND 1/2 TABLETS BY [facility] DAILY DIRECTED Last Documented On 06/23/2022 5:34PM By Yajaira Still MD ; [facility] busPIRone HCl 15 MG Oral Tablet 06/16/2021 - 06/23/2022 Provider: LUCY STILL MD Diagnosis: Generalized anxi ety disorder One tablet twice a day Last Documented On 06/23/2022 5:36PM By Yajaira Still MD ; [facility] Myrbetriq 25 MG Oral Tablet Extended Release 24 Hour 06/06/2020 - 06/23/2022 Provider: NICOLA ESPINOZA MD Diagnosis: 1 tab daily Last Documented On 06/23/2022 4:37PM By ELISEO BARCENAS ; [facility] Paxil 40 MG Oral Tablet 03/19/2020 - 06/16/2021 Provider: LUCY STILL MD Diagnosis: Obsessive-compul sive disorder, unspecified TAKE 1 AND 1/2 TABLETS BY [facility] DAILY DIRECTED Last Documented On 06/16/2021 5:25PM By Yajaira Still MD ; [facility] Paxil 40 MG Oral Tablet 10/08/2019 - 03/19/2020 Provider: LUCY STILL MD Diagnosis: Obsessive-compul sive disorder, unspecified TAKE 1 AND 1/2 TABLETS BY [facility] DAILY DIRECTED Last Documented On 03/19/2020 9:52AM By Yajaira Still MD ; [facility] busPIRone HCl 15 MG Oral Tablet 07/11/2019 - 06/16/2021 Provider: LUCY STILL MD Diagnosis: Generalized anxi ety disorder One tablet twice a day Last Documented On 06/16/2021 5:27PM By Yajaira Still MD ; [facility] Paxil 40 MG Oral Tablet 04/18/2019 - 10/08/2019 Provider: LUCY STILL MD Diagnosis: Obsessive-compul sive disorder, unspecified TAKE 1 AND 1/2 TABLETS BY [facility] DAILY DIRECTED Last Documented On 10/08/2019 6:56PM By Yajaira Still MD ; [facility] busPIRone HCl 15 MG Oral Tablet 11/03/2018 - 06/20/2019 Provider: LUCY STILL MD Diagnosis: Generalized anxi ety disorder One tablet twice a day Last Documented On 07/11/2019 2:13PM By Yajaira Still MD ; [facility] Paxil 40 MG Oral Tablet 11/01/2018 - 04/18/2019 Provider: LUCY STILL MD Diagnosis: Obsessive-compul sive disorder, unspecified TAKE 1 AND 1/2 TABLETS BY [facility] DAILY DIRECTED Last Documented On 04/18/2019 9:34AM By Yajaira Still MD ; [facility] Paxil 40MG Oral Tablet 07/24/2018 - 11/01/2018 Provider: LUCY STILL MD Diagnosis: Obsessive-compul sive disorder, unspecified as directed --1 and 1/2 tab daily Last Documented On 9 10:14AM By Yajaira Still MD ; [facility] busPIRone HCl 15MG Oral Tablet 06/29/2018 - 11/03/2018 Provider: LUCY STILL MD Diagnosis: Generalized anxi ety disorder One tablet twice a day Last Documented On 9 10:39AM By Yajaira Still MD ; [facility] busPIRone HCl 7.5 MG OR TABS 03/17/2018 - 04/16/2018 P rovider: Diagnosis: Major depressive disorder, recurrent, moderate 2 tablets twice a day Last Documented On 03/17/2018 9:59AM By ELISEO BARCENAS ; [facility] BusPIRone HCl 7.5MG Oral Tablet 03/17/2018 - 12/20/2018 Provider: LUCY STILL MD Diagnosis: Major depressive disorder, recurrent, moderate as directed 2 tablets twice a day Last Documented On 12/20/2018 5:20PM By Yajaira Still MD ; [facility] Paxil 40MG Oral Tablet 12/30/2017 - 06/29/2018 Provider: LUCY STILL MD Diagnosis: Obsessive-compul sive disorder, unspecified as directed --1 and 1/2 tab daily Last Documented On 07/24/2018 7:44AM By Yajaira Still MD ; [facility] Modafinil 200MG Oral Tablet 12/30/2017 - 06/29/2018 Provider: LUCY STILL MD Diagnosis: Obstructive slee p apnea (adult) (pediatric) as directed -- 1 tab in am Last Documented On 07/24/2018 7:44AM By Yajaira Still MD ; [facility] Paxil 40MG Oral Tablet 12/29/2017 - 12/29/2017 Provider: LUCY TOMAS MD Diagnosis: Major depressive disorder, recurrent, moderate as directed --1 and 1/2 tab daily Last Documented On 12/30/2017 2:22PM By Yajaira Still MD ; [facility] BusPIRone HCl 15MG Oral Tablet 12/29/2017 - 06/29/2018 Provider: LUCY STILL MD Diagnosis: Generalized anxi ety disorder One tablet twice a day Last Documented On 06/29/2018 5:22PM By Yajaira Still MD ; [facility] Modafinil 200MG Oral Tablet 07/04/2017 - 12/29/2017 Provider: LUCY STILL MD Diagnosis: Obstructive slee p apnea (adult) (pediatric) as directed -- 1 tab in am - - given by Dr. Vela Last Documented On 12/30/2017 2:22PM By Yajaira Still MD ; [facility] PARoxetine HCl 40MG Oral Tablet 07/04/2017 - 11/01/2018 Provider: LUCY STILL MD Diagnosis: Major depressive disorder, recurrent, moderate One tablet daily Last Documented On 01/19/2019 5:20PM By JENNIFER CARMICHAEL ; [facility] BusPIRone HCl 15MG Oral Tablet 06/29/2017 - 12/29/2017 Provider: LUCY STILL MD Diagnosis: Generalized anxi ety disorder One tablet twice a day Last Documented On 12/29/2017 5:06PM By Yajaira Still MD ; [facility] PARoxetine HCl 40MG Oral Tablet 04/26/2017 - 06/29/2017 Provider: LUCY STILL MD Diagnosis: Major depressive disorder, recurrent, moderate One tablet daily Last Documented On 07/04/2017 7:07AM By Yajaira Still MD ; [facility] Paxil CR 37.5MG Oral Tablet Extended Release 24 Hour 01/01/2017 - 06/29/2017 Provider: LUCY STILL MD Diagnosis: Major depressive disorder, recurrent, unspecified Take 1 tablet by mouth twice a day Last Documented On 06/29/2017 4:59PM By Yajaira Still MD ; [facility] Modafinil 200MG Oral Tablet 01/01/2017 - 06/29/2017 Provider: LUCY STILL MD Diagnosis: Obstructive slee p apnea (adult) (pediatric) as directed -- 1 tab in am - - given by Dr. Vela Last Documented On 07/04/2017 7:07AM By Yajaira Still MD ; [facility] Oxybutynin Chloride 5MG Oral Tablet 01/01/2017 - 06/29 Provider: Diagnosis: Last Documented On 06/29/2017 4:59PM By Yajaira Still MD ; [facility] Tamsulosin HCl 0.4MG Oral Capsule 01/01/2017 - 018 Provider: Diagnosis: Last Documented On 06/29/2017 4:58PM By Yajaira Still MD ; [facility] BusPIRone HCl 15MG Oral Tablet 12/30/2016 - 06/29/2017 Provider: LUCY STILL MD Diagnosis: Generalized anxi ety disorder One tablet twice a day Last Documented On 06/29/2017 5:01PM By Yajaira Still MD ; [facility] Paxil CR 37.5MG Oral Tablet Extended Release 24 Hour 11/08/2016 - 12/30/2016 Provider: LUCY STILL MD Diagnosis: Major depressive disorder, recurrent, unspecified Take 1 tablet by mouth twice a day Last Documented On 01/01/2017 9:31AM By Yajaira Still MD ; [facility] Modafinil 200MG Oral Tablet 09/08/2016 - 12/30/2016 Provider: LUCY STILL MD Diagnosis: Obstructive slee p apnea (adult) (pediatric) as directed -- 1 tab at 2:30 pm -- given by Dr. Vela Last Documented On 01/01/2017 9:31AM By Yajaira Still MD ; [facility] Pramipexole Dihydrochloride 0.5MG Oral Tablet 09/08/2016 - 06/16/2021 Provider: LUCY STILL MD Diagnosis: Restless legs syndrome as directed 1 and 1/2 tabs a t bedtime --- given by Dr. Vela Last Documented On 06/16/2021 5:28PM By Yajaira Still MD ; [facility] BusPIRone HCl 15MG Oral Tablet 06/29/2016 - 12/30/2016 Provider: LUCY STILL MD Diagnosis: Generalized anxi ety disorder One tablet twice a day Last Documented On 12/30/2016 5:18PM By Yajaira Still MD ; [facility] Paxil CR 37.5MG Oral Tablet Extended Release 24 Hour 06/29/2016 - 11/08/2016 Provider: LUCY STILL MD Diagnosis: Major depressive disorder, recurrent, unspecified *BID - One tablet twice a day Last Documented On 11/08/2016 4:18PM By Yajaira Still MD ; [facility] Modafinil 200 MG Tablet 01/01/2016 - 06/29/2016 Provider: LUCY STILL MD Diagnosis: Obstructive slee p apnea (adult) (pediatric) as directed -- 1 tab at 2:30 pm -- given by Dr. Vela Last Documented On 7 12:20PM By Yajaira Still MD ; [facility] BusPIRone HCl 15 MG Tablet 01/01/2016 - 06/29/2016 Provider: LUCY STILL MD Diagnosis: Generalized anxi ety disorder One tablet twice a day Last Documented On 06/29/2016 6:22PM By Yajaira Still MD ; [facility] Paxil CR 37.5 MG Tablet, extended-release 24 hour 01/01/2016 - 06/29/2016 Provider: LUCY STILL MD Diagnosis: Major depressive disorder, recurrent, unspecified *BID - One tablet twice a day Last Documented On 06/29/2016 6:24PM By Yajaira Still MD ; [facility] Benadryl Allergy 25 MG Tablet 01/01/2016 - 06/29/2016 Provider: NICOLA LEE MD Diagnosis: Take as directed. As needed Last Documented On 7 4:52PM By AYDE SIMPSON LPN ; [facility] Paxil CR 37.5 MG Tablet Extended Release 24 Hour 12/12/2015 - 01/01/2016 Provider: LUCY STILL MD Diagnosis: Major depressive disorder, recurrent, unspecified *BID - One tablet twice a day Last Documented On 01/01/2016 5:25PM By Yajaira Still MD ; [facility] Modafinil 200 MG Tablet 12/03/2015 - 01/01/2016 Provid er: Diagnosis: 1 daily Last Documented On 01/01/2016 5:30PM By Yajaira Still MD ; [facility] BusPIRone HCl 15 MG Tablet 10/29/2015 - 01/01/2016 Provider: LUCY STILL MD Diagnosis: Generalized anxi ety disorder One tablet twice a day Last Documented On 01/01/2016 5:30PM By Yajaira Still MD ; [facility] Nuvigil 200 MG Tablet 07/01/2015 - 01/01/2016 Provider: LUCY STILL MD Diagnosis: Obstructive slee p apnea (adult) (pediatric) 1 tablet every morning --giv en discount voucher on 07/01/15 but was prescribed by Dr. Lee (PCP) Last Documented On 01/01/2016 4:58PM By Yajaira Still MD ; [facility] Paxil CR 37.5 MG Tablet Extended Release 24 Hour 07/01/2015 - 12/12/2015 Provider: LUCY STILL MD Diagnosis: Major depressive disorder, recurrent, unspecified *BID - One tablet twice a day Last Documented On 12/12/2015 3:07PM By Yajaira Still MD ; [facility] BusPIRone HCl 15 MG Tablet 07/01/2015 - 10/29/2015 Provider: LUCY STILL MD Diagnosis: Generalized anxi ety disorder One tablet twice a day Last Documented On 6 10:32AM By Yajaira Still MD ; [facility] Nuvigil 200 MG Tablet 06/05/2015 - 01/01/2016 Provider : Diagnosis: 1 tablet daily Last Documented On 6 4:44PM By AYDE SIMPSON LPN ; [facility] Modafinil 200 MG Tablet 03/31/2015 - 07/01/2015 Provider: LUCY STILL MD Diagnosis: Obstructive slee p apnea (adult) (pediatric) as directed --1 tab in am and 1 tab at noon Last Documented On 6 4:41PM By AYDE SIMPSON LPN ; [facility] Nuvigil 250 MG Tablet 03/31/2015 - 04/14/2015 Provider: LUCY TOMAS MD Diagnosis: Obstructive slee p apnea (adult) (pediatric) 1 tablet every morning --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 03/31/15 Last Documented On 03/31/2015 1:00PM By Yajaira Still MD ; [facility] Paxil CR 37.5 MG Tablet, extended-release 24 hour 03/20/2015 - 07/01/2015 Provider: LUCY STILL MD Diagnosis: Major depressive disorder, recurrent, unspecified *BID - One tablet twice a day Last Documented On 07/01/2015 5:18PM By Yajaira Still MD ; [facility] BusPIRone HCl 15 MG Tablet 03/20/2015 - 07/01/2015 Provider: LUCY STILL MD Diagnosis: Generalized anxi ety disorder One tablet twice a day Last Documented On 07/01/2015 5:18PM By Yajaira Still MD ; [facility] Modafinil 200 MG Tablet 01/01/2015 - 07/01/2015 Provider: LUCY STILL MD Diagnosis: Obstructive slee p apnea (adult) (pediatric) as directed 2 in the morning -- refilled by Dr. Vela Last Documented On 6 4:42PM By AYDE SIMPSON LPN ; [facility] Paxil CR 37.5 MG Tablet Extended Release 24 Hour 01/01/2015 - 03/20/2015 Provider: LUCY STILL MD Diagnosis: Major depressive disorder, recurrent, unspecified *BID - One tablet twice a day Last Documented On 6 10:45AM By Yajaira Still MD ; [facility] BusPIRone HCl 15 MG Tablet 01/01/2015 - 03/20/2015 Provider: LUCY STILL MD Diagnosis: Generalized anxi ety disorder One tablet twice a day Last Documented On 6 10:45AM By Yajaira Still MD ; [facility] HM Vitamin B12 500 MCG Tablet 01/01/2015 - 07/01/2015 Provider: Diagnosis: Take 1 tablet by mouth daily Last Documented On 6 4:42PM By AYDE SIMPSON LPN ; [facility] HM Vitamin B12 1000 MCG Tablet Extended Release 01/01/2015 - 01/01/2016 Provider: Diagnosis: Last Documented On 01/01/2016 5:17PM By Yajaira Still MD ; [facility] Dialyvite Vitamin D 5000 5000 UNIT Capsule 01/01/2015 - 01/01/2015 Provider: Diagnosis: Take 1 capsule by mouth weekly Last Documented On 01/01/2015 2:21PM By Yajaira Still MD ; [facility] Amphetamine-Dextroamphetamin e 30 MG Tablet 01/01/2015 - 01/01/2016 Provider: GUSTAVO VELA MD Diagnosis: Sleep apnea, unspecified Take 1/2 tablet by mouth twice a day Last Documented On 01/01/2016 5:30PM By Yajaira Still MD ; [facility] Pramipexole Dihydrochloride 0.5 MG Tablet 01/01/2015 - 06/29/2016 Provider: LUCY STILL MD Diagnosis: Restless legs syndrome as directed 1 and 1/2 tabs a t bedtime --- given by Dr. Vela Last Documented On 7 12:20PM By Yajaira Still MD ; [facility] Paxil CR 37.5 MG Tablet Extended Release 24 Hour 12/13/2014 - 01/01/2015 Provider: LUCY STILL MD Diagnosis: Major depressive disorder, recurrent, unspecified *BID - One tablet twice a day Last Documented On 01/01/2015 2:42PM By Yajaira Still MD ; [facility] Modafinil 200 MG Tablet 07/29/2014 - 01/01/2015 Provider: LUCY STILL MD Diagnosis: OBSTRUCTIVE SLEE P APNEA as directed 2 in the morning -- refilled by Dr. Vela Last Documented On 01/01/2015 2:42PM By Yajaira Still MD ; [facility] BusPIRone HCl 15 MG Tablet 07/18/2014 - 01/01/2015 Provider: LUCY STILL MD Diagnosis: GENERALIZED ANXI ETY DIS One tablet twice a day Last Documented On 01/01/2015 2:42PM By Yajaira Still MD ; [facility] Paxil CR 37.5 MG Tablet, extended-release 24 hour 07/18/2014 - 12/13/2014 Provider: LUCY STILL MD Diagnosis: MAJOR DEPRESSION DISORDER/RECURRENT *BID - One tablet twice a day Last Documented On 12/13/2014 9:15AM By Yajaira Still MD ; [facility] busPIRone HCl 15 MG OR TABS 01/18/2014 - 07/18/2014 Provider: LUCY STILL MD Diagnosis: GENERALIZED ANXI ETY DIS Last Documented On 07/18/2014 5:08PM By Yajaira Still MD ; [facility] Paxil CR 37.5 MG OR TB24 01/18/2014 - 07/18/2014 Provider: LUCY TOMAS MD Diagnosis: MAJOR DEPRESSION DISORDER/RECURRENT refilled last 12/27/13 for 3 refills Last Documented On 07/18/2014 5:08PM By Yajaira Still MD ; [facility] Modafinil 200 MG OR TABS 01/18/2014 - 07/18/2014 Provider: LUCY STILL MD Diagnosis: OBSTRUCTIVE SLEE P APNEA 2 in the morning -- refilled by Dr. Vela Last Documented On 07/29/2014 6:34PM By Yajaira Still MD ; [facility] Zantac 75 75 MG OR TABS 07/17/2013 - 07/01/2015 Provid er: Diagnosis: Last Documented On 6 4:40PM By AYDE SIMPSON LPN ; [facility] Pramipexole Dihydrochloride 0.5 MG OR TABS 07/17/2013 - 01/01/2015 Provider: LUCY STILL MD Diagnosis: Restless Legs Syndrome 1 and 1/2 tabs at bedtime --- given by Dr. Vela Last Documented On 01/01/2015 2:42PM By Yajaira Still MD ; [facility] Paxil CR 37.5 MG OR TB24 07/17/2013 - 01/18/2014 Provider: LUCY TOMAS MD Diagnosis: MAJOR DEPRESSION DISORDER/RECURRENT Last Documented On 01/18/2014 5:37PM By Yajaira Still MD ; [facility] Modafinil 200 MG OR TABS 07/17/2013 - 01/18/2014 Provider: LUCY STILL MD Diagnosis: OBSTRUCTIVE SLEE P APNEA 2 in the morning Last Documented On 01/18/2014 5:37PM By Yajaira Still MD ; [facility] busPIRone HCl 15 MG OR TABS 07/17/2013 - 01/18/2014 Provider: LUCY STILL MD Diagnosis: GENERALIZED ANXI ETY DIS Last Documented On 01/18/2014 5:37PM By Yajaira Still MD ; [facility] ZyrTEC Allergy 10 MG OR TABS 07/17/2013 - 01/01/2016 P rovider: Diagnosis: Last Documented On 01/01/2016 5:16PM By Yajaira Still MD ; [facility] Paxil CR 37.5 MG OR TB24 01/17/2013 - 07/17/2013 Provider: LUCY TOMAS MD Diagnosis: MAJOR DEPRESSION DISORDER/RECURRENT Last Documented On 07/17/2013 5:23PM By Yajaira Still MD ; [facility] Modafinil 200 MG OR TABS 01/17/2013 - 07/17/2013 Provider: LUCY STILL MD Diagnosis: OBSTRUCTIVE SLEE P APNEA 2 in the morning Last Documented On 07/17/2013 5:23PM By Yajaira Still MD ; [facility] busPIRone HCl 15 MG OR TABS 01/17/2013 - 07/17/2013 Provider: LUCY STILL MD Diagnosis: GENERALIZED ANXI ETY DIS Last Documented On 07/17/2013 5:23PM By Yajaira Still MD ; [facility] Modafinil 200 MG OR TABS 07/19/2012 - 01/17/2013 Provider: LUCY STILL MD Diagnosis: OBSTRUCTIVE SLEE P APNEA 2 in the morning Last Documented On 01/17/2013 5:29PM By Yajaira Still MD ; [facility] Pramipexole Dihydrochloride 0.5 MG OR TABS 07/19/2012 - 07/17/2013 Provider: LUCY STILL MD Diagnosis: Restless Legs Syndrome 1 and 1/2 tabs at bedtime --- given by Dr. Vela Last Documented On 07/17/2013 5:23PM By Yajaira Still MD ; [facility] Paxil CR 37.5 MG OR TB24 07/19/2012 - 01/17/2013 Provider: LUCY TOMAS MD Diagnosis: DEPRESS PSYCHOSI S-MILD Last Documented On 01/17/2013 5:29PM By Yajaira Still MD ; [facility] busPIRone HCl 15 MG OR TABS 07/19/2012 - 01/17/2013 Provider: LUCY STILL MD Diagnosis: GENERALIZED ANXI ETY DIS Last Documented On 01/17/2013 5:29PM By Yajaira Still MD ; [facility] Lovaza 1 GM OR CAPS 07/19/2012 - 01/17/2013 Provider: Diagnosis: 3 caps at bedtime Last Documented On 3 4:36PM By VALENTINO BARCENAS ; [facility] Asp[facility]in 81 MG OR TABS 07/19/2012 - 07/17/2013 Provider : Diagnosis: Last Documented On 4 4:44PM By VALENTINO BARCENAS ; [facility] Pramipexole Dihydrochloride 0.5 MG OR TABS 07/19/2012 - 07/19/2012 Provider: Diagnosis: 1 and 1/2 tabs at bedtime Last Documented On 07/19/2012 5:23PM By Yajaira Still MD ; [facility] Potassium Citrate ER 10 MEQ (1080 MG) OR TBCR 07/20/19 13 - 07/18/2014 Provider: Diagnosis: 2 tabs every morning Last Documented On 07/18/2014 5:28PM By Yajaira Still MD ; [facility] Chlorthalidone 25 MG OR TABS 03/08/2012 - 01/01/2016 P rovider: Diagnosis: Last Documented On 01/01/2016 5:16PM By Yajaira Still MD ; [facility] Niaspan 500 MG OR TBCR 03/08/2012 - 01/17/2013 Provide r: Diagnosis: Last Documented On 3 4:36PM By VALENTINO BARCENAS ; [facility] Crestor 10 MG OR TABS 03/08/2012 - 12/19/2019 Provider : Diagnosis: Last Documented On 12/19/2019 1:23PM By ELISEO BARCENAS ; [facility] busPIRone HCl 15 MG OR TABS 03/08/2012 - 07/19/2012 Pr ovider: Diagnosis: as needed Last Documented On 07/19/2012 5:23PM By Yajaira Still MD ; [facility] Paxil CR 37.5 MG OR TB24 03/08/2012 - 07/19/2012 Provi conrad: Diagnosis: Last Documented On 07/19/2012 5:23PM By Yajaira Still MD ; [facility] Modafinil 200 MG OR TABS 03/08/2012 - 07/19/2012 Provi conrad: Diagnosis: 1 and 1 half in the morning Last Documented On 07/19/2012 5:23PM By Yajaira Still MD ; [facility] [...] 06/19/2020 Last Documented On 1 9:21AM ; [facility] Non-smoker 12/20/2019 Last Documented On 1 11:49PM ; [facility] No coffee consumption -- He drinks 1 can of diet coke with splenda and 1 glass of tea a day 06/29/2018 Last Documented On 9 7:45AM ; [facility] Marital history -- 07/01/2015 Last Documented On 6 7:59PM ; [facility] He denied any h/o abuse. 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[place], [place] 07/04/2012 Last Documented On 3 10:55AM ; [facility] Not using alcohol 03/08/2012 Last Documented On 3 3:01PM ; [facility] Not using drugs (Illicit) 03/08/2012 Last Documented On 3 3:01PM ; [facility] Smoking status : Never smoked 03/08/2012 Last Documented On 3 3:01PM ; [facility] Procedures and Surgical History Surgical History Last Updated History of LASIK surgery - 200306/30/19 19 Last Documented On 9 7:45AM ; [facility] History of lithotripsy , cholecystectomy in 201007/19/2012 Last Documented On 3 5:41PM ; [facility] Medical History Includes: Medical History in patient's chart Description Last Updated History of Nausea - given Zofran 8mg 05/1206/23/2022 Last Documented On 3 8:00AM ; [facility] History of nephrolithiasis - - recurrent -- last episode of kidney stones and lithotripsy --03/2014 -- passed another stone -- 09/2014, another lithotripsy done 12/17/16 -- [facility] (Dr. Pichardo) -- 06/2017 stones removed, 11/2017 stones removed at [facility] -- passed kidney stone at home 11/201806/23/2022 Last Documented On 3 8:00AM ; [facility] History of URINARY FREQUENCY - and urge to urinate -- given Myrbetriq 25 mg and given Tamsulosin 0.4 mg 04/30/22 and 02/01/22 06/23/2022 Last Documented On 3 8:00AM ; [facility] Primary Care Provider: Dr. Nahed Lee -- Josiah Long ~Dr. Sukhdev Lujan -- Neurologist ~Dr. Rafita Salguero/Dr. Víctor Pichardo -Urologist -- [facility] ~Dr. Stephan Osuna -- Ophthamologist 06/23/2022 Last Documented On 3 8:00AM ; [facility] History of coronavirus [...] 06/18/2021 Last Documented On 2 4:03PM ; [facility] History of allergic reaction - unknown origin -- hospitalized at [facility] 09/27/20 -- given Epipen and Prednisone 10 mg 12/18/2020 Last Documented On 1 8:13AM ; [facility] History of arthritis - right hand -- appointment with Dr. Eduard [place] 06/19/2020 Last Documented On 1 9:21AM ; [facility] History of Fuchs' endothelial corneal dy strophy - 201912/20/2019 Last Documented On 1 11:49PM ; [facility] History of colonoscopy - 09/[address] Meza -- normal results -- repeat 4 years 12/20/2018 Last Documented On 9 6:10PM ; [facility] History of contact dermatitis -- he took a steroid, antibiotic, benadryl 01/01/2016 Last Documented On 6 9:45AM ; [facility] History of restless legs syndrome 2014 Last Documented On 5 6:30AM ; [facility] History of narcolepsy --Dr. Rafiq lucero 11/201401/06/2015 Last Documented On 5 6:30AM ; [facility] History of GERD 07/22/2014 Last Documented On 5 6:36PM ; [facility] History of diabetes mellitus 07/17/2013 Last Documented On 4 11:39PM ; [facility] History of hyperlipidemia 03/08/2012 Last Documented On 3 3:01PM ; [facility] Family History Includes: Family History in patient's chart Description Last Updated Family medical history : No significant family history 07/18/2014 Last Documented On 5 6:36PM ; [facility] Review of Systems Review of [...] Last Documented On 06/21/2023 4:56PM ; [facility] Note: Imported from external source. Cipro Allergy 12/20/2018 Active Last Documented On 06/21/2023 4:56PM ; [facility] Note: Imported from external source. Cipro Allergy Hives / Urticaria 12/20/2018 R esolved Last Documented On 3 4:47PM ; [facility] Aspartame Allergy Skin Rashes / Eruption of skin 06/29/2018 Active Last Documented On 06/21/2023 4:56PM ; [facility] Note: Imported from external source. Insurance Includes: Active Insurance Policies Plan Name Member ID Group # Subscriber Relationship Effect refugio Dates 1 - [facility] [id number] MARYAM MUNOZ 03/10/2020 - Unknown Clinical Notes Includes: Signed Clinical Notes starting from 03/26/2022 No Clinical Notes Recorded
--- OUTSIDE RECORDS SUMMARY | 2024-05-29 18:40 | XMS_ITS ---
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 Last Documented On 3 5:45PM ; [facility] Major Depression, Recurrent 07/19/2012 Active Last Documented On 3 5:45PM ; [facility] Restless Legs Syndrome 07/19/2012 Ac tive Last Documented On 3 5:45PM ; [facility] Obsessive Compulsive Disorder 03/08/2012 Active Last Documented On 3 5:50PM ; [facility] Generalized Anxiety Disorder 03/08/2012 Active Last Documented On 3 5:42PM ; [facility] Gerd 03/08/2012 Active Last Documented On 3 5:42PM ; [facility] Hyperlipidemia 03/08/2012 Active Last Documented On 3 5:42PM ; [facility] Obsessive Compulsive Disorder 03/08/2012 Inactive Last Documented On 3 5:42PM ; [facility] Nephrolithiasis 03/08/2012 Active Last Documented On 3 5:42PM ; [facility] Plan of Treatment Future Appointments Date Time Location Provi conrad [facility]LE[facility] ADULT PSYCH ESTABLISHED 06/20/2024 4:40PM [facility] STILL MD Last Documented On 4 5:56PM ; [facility] Education and Decision Aids were provided during visit for: Discussed good sleep hygiene habits Last Documented On 3 6:40PM ; [facility] Assessments Includes: Assessments for all patient encounters Findings Encounter Date Generalized anxiety disorder TELEHEALTH ADULT PSYCH ESTABLISHED with LUCY STILL MD 06/21/2023 Last Documented On 4 8:45PM ; [facility] Major depression, recurrent TELEHEALTH A DULT PSYCH ESTABLISHED with LUCY STILL MD 06/21/2023 Last Documented On 4 8:45PM ; [facility] Narcolepsy TELEHEALTH ADULT PSYCH ESTABLISH ED with LUCY STILL MD 06/21/2023 Last Documented On 4 8:45PM ; [facility] Obsessive compulsive disorder TELEHEALTH ADULT PSYCH ESTABLISHED with LUCY STILL MD 06/21/2023 Last Documented On 4 8:45PM ; [facility] Obstructive sleep apnea TELEHEALTH ADULT PSYCH ESTABLISHED with LUCY STILL MD 06/21/2023 Last Documented On 4 8:45PM ; [facility] Restless legs syndrome TELEHEALTH ADULT PSYCH ESTABLISHED with LUCY STILL MD 06/21/2023 Last Documented On 4 8:45PM ; [facility] Generalized anxiety disorder TELEHEALTH ADULT PSYCH ESTABLISHED with LUCY STILL MD 12/23/2022 Last Documented On 3 12:30PM ; [facility] Major depression, recurrent TELEHEALTH A DULT PSYCH ESTABLISHED with LUCY STILL MD 12/23/2022 Last Documented On 3 12:30PM ; [facility] Narcolepsy TELEHEALTH ADULT PSYCH ESTABLISH ED with LUCY STILL MD 12/23/2022 Last Documented On 3 12:30PM ; [facility] Obsessive compulsive disorder TELEHEALTH ADULT PSYCH ESTABLISHED with LUCY STILL MD 12/23/2022 Last Documented On 3 12:30PM ; [facility] Obstructive sleep apnea TELEHEALTH ADULT PSYCH ESTABLISHED with LUCY STILL MD 12/23/2022 Last Documented On 3 12:30PM ; [facility] Restless legs syndrome TELEHEALTH ADULT PSYCH ESTABLISHED with LUCY STILL MD 12/23/2022 Last Documented On 3 12:30PM ; [facility] Instructions Includes: Instructions for all patient encounters Education and Decision Aids were provided during visit for: Discussed good sleep hygiene habits Last Documented On 3 6:40PM ; [facility] Medical Equipment - Implanted Devices Includes: Current and historical Devices No Medical Equipment Recorded Medications Includes: Current and historical Medications Current Medications (continue as prescribed) Paxil 40 MG Oral Tablet 06/21/2023 Provider: BRIONNA STILL MD Diagnosis: Obsessive-compul sive disorder, unspecified TAKE 1 AND 1/2 TABLETS BY [facility] DAILY DIRECTED Last Documented On 06/21/2023 5:42PM By Yajaira Still MD ; [facility] busPIRone HCl 15 MG Oral Tablet 06/20/2023 Provider: LUCY STILL MD Diagnosis: Generalized anxi ety disorder One tablet twice a day Last Documented On 06/20/2023 10:49AM By Yajaira Still MD ; [facility] Pramipexole Dihydrochloride 1 MG Oral Tablet 04/20/2023 Provider: NICOLA Archibald Diagnosis: 1 and 1/2 tab in the evening Last Documented On 06/21/2023 5:48PM By Yajaira Still MD ; [facility] Fish Oil 1200 MG Oral Capsule 12/23/2022 Provider: Diagnosis: 3 caps daily Last Documented On 12/23/2022 4:48PM By ELISEO BARCENAS ; [facility] oxyBUTYnin Chloride ER 15 MG Oral Tablet Extended Release 24 Hour 11/15/2022 Provider: RAFITA RUGGIERO MD Diagnosis: 1 tab daily Last Documented On 12/23/2022 4:48PM By ELISEO BARCENAS ; [facility] Januvia 100 MG OR TABS 10/02/2021 Provider: Diagnosis: 1 tab daily Last Documented On 07/03/2022 5:27PM By ELISEO BARCENAS ; [facility] FeroSul 325 (65 Fe) MG OR TABS 05/28/2021 Provider: Diagnosis: 1 tab daily Last Documented On 07/03/2022 5:27PM By ELISEO BARCENAS ; [facility] EPINEPHrine 0.3 MG/0.3ML IJ SOAJ 2020 Provider : Diagnosis: use as directed Last Documented On 07/03/2022 5:27PM By ELISEO BARCENAS ; [facility] Rosuvastatin Calcium 10 MG OR TABS 06/18/2019 Provid er: Diagnosis: one tablet daily Last Documented On 07/03/2022 5:27PM By JENNIFER CARMICHAEL ; [facility] Modafinil 200 MG OR TABS 07/24/2018 Provider: MET SHELDON STILL MD Diagnosis: Obstructive slee p apnea (adult) (pediatric) as directed -- 1 tab in am Last Documented On 07/03/2022 5:27PM By Yajaira Still MD ; [facility] Amphetamine-Dextroamphetamin e 30 MG OR TABS 01/01/2016 Provider: LUCY STILL MD Diagnosis: Sleep apnea, unspecified as directed Take 1/2 tablet in am and 1/2 tab at 2: 30 pm Last Documented On 07/03/2022 5:27PM By Yajaira Still MD ; [facility] PA Vitamin D-3 25 MCG (1000 UT) OR TABS 01/01/2015 P rovider: Diagnosis: Last Documented On 07/03/2022 5:27PM By Yajaira Still MD ; [facility] metFORMIN HCl 1000 MG TABS 07/19/2012 Provider: Diagnosis: Last Documented On 07/03/2022 5:27PM By VALENTINO GOLD ; [facility] Omeprazole 20 MG OR CPDR 03/08/2012 Provider: Diagnosis: Last Documented On 07/03/2022 5:27PM By VALENTINO GOLD ; [facility] Past Medications on file Paxil 40 MG OR TABS 06/23/2022 - 06/21/2023 Provider: LUCY STILL MD Diagnosis: Obsessive-compul sive disorder, unspecified TAKE 1 AND 1/2 TABLETS BY [facility] DAILY DIRECTED Last Documented On 06/21/2023 5:42PM By Yajaira Still MD ; [facility] busPIRone HCl 15 MG OR TABS 06/23/2022 - 06/20/2023 Provider: LUCY STILL MD Diagnosis: Generalized anxi ety disorder One tablet twice a day Last Documented On 06/20/2023 10:48AM By Yajaira Still MD ; [facility] Gemtesa 75 MG OR TABS 06/23/2022 - 12/23/2022 Provider : Diagnosis: 1 tab daily Last Documented On 12/23/2022 4:48PM By ELISEO BARCENAS ; [facility] busPIRone HCl 15 MG OR TABS 06/16/2021 - 06/23/2022 Provider: LUCY STILL MD Diagnosis: Generalized anxi ety disorder One tablet twice a day Last Documented On 07/03/2022 5:27PM By Yajaira Still MD ; [facility] Paxil 40 MG OR TABS 06/16/2021 - 06/23/2022 Provider: LUCY STILL MD Diagnosis: Obsessive-compul sive disorder, unspecified TAKE 1 AND 1/2 TABLETS BY [facility] DAILY DIRECTED Last Documented On 07/03/2022 5:27PM By Yajaira Still MD ; [facility] Myrbetriq 25 MG OR TB24 06/06/2020 - 06/23/2022 Provid er: Diagnosis: 1 tab daily Last Documented On 07/03/2022 5:27PM By ELISEO BARCENAS ; [facility] Pramipexole Dihydrochloride 1 MG OR TABS 06/06/2020 - 06/21/2023 Provider: Diagnosis: patient takes 0.75 mg at bedtime Last Documented On 06/21/2023 5:48PM By Yajaira Still MD ; [facility] Paxil 40 MG OR TABS 03/19/2020 - 06/16/2021 Provider: ULCY STILL MD Diagnosis: Obsessive-compul sive disorder, unspecified TAKE 1 AND 1/2 TABLETS BY [facility] DAILY DIRECTED Last Documented On 07/03/2022 5:27PM By Yajaira Still MD ; [facility] Paxil 40 MG OR TABS 10/08/2019 - 03/19/2020 Provider: LUCY STILL MD Diagnosis: Obsessive-compul sive disorder, unspecified TAKE 1 AND 1/2 TABLETS BY MO [facility] DAILY DIRECTED Last Documented On 07/03/2022 5:27PM By Yajaira Still MD ; [facility] busPIRone HCl 15 MG OR TABS 07/11/2019 - 06/16/2021 Provider: LUCY STILL MD Diagnosis: Generalized anxi ety disorder One tablet twice a day Last Documented On 07/03/2022 5:27PM By Yajaira Still MD ; [facility] Paxil 40 MG OR TABS 04/18/2019 - 10/08/2019 Provider: LUCY STILL MD Diagnosis: Obsessive-compul sive disorder, unspecified TAKE 1 AND 1/2 TABLETS BY MO [facility] DAILY DIRECTED Last Documented On 07/03/2022 5:27PM By Yajaira Still MD ; [facility] busPIRone HCl 15 MG OR TABS 11/03/2018 - 06/20/2019 Provider: LUCY STILL MD Diagnosis: Generalized anxi ety disorder One tablet twice a day Last Documented On 07/03/2022 5:27PM By Yajaira Still MD ; [facility] Paxil 40 MG OR TABS 11/01/2018 - 04/18/2019 Provider: LUCY STILL MD Diagnosis: Obsessive-compul sive disorder, unspecified TAKE 1 AND 1/2 TABLETS BY MO [facility] DAILY DIRECTED Last Documented On 07/03/2022 5:27PM By Yajaira Still MD ; [facility] Paxil 40 MG OR TABS 07/24/2018 - 11/01/2018 Provider: LUCY STILL MD Diagnosis: Obsessive-compul sive disorder, unspecified as directed --1 and 1/2 tab daily Last Documented On 07/03/2022 5:27PM By Yajaira Still MD ; [facility] busPIRone HCl 15 MG OR TABS 06/29/2018 - 11/03/2018 Provider: LUCY STILL MD Diagnosis: Generalized anxi ety disorder One tablet twice a day Last Documented On 07/03/2022 5:27PM By Yajaira Still MD ; [facility] busPIRone HCl 7.5 MG OR TABS 03/17/2018 - 12/20/2018 Provider: LUCY STILL MD Diagnosis: Major depressive disorder, recurrent, moderate as directed 2 tablets twice a day Last Documented On 07/03/2022 5:27PM By Yajaira Still MD ; [facility] busPIRone HCl 7.5 MG OR TABS 03/17/2018 - 04/16/2018 P leathader: Diagnosis: Major depressive disorder, recurrent, moderate 2 tablets twice a day Last Documented On 07/03/2022 5:27PM By ELISEO BARCENAS ; [facility] Modafinil 200 MG OR TABS 12/30/2017 - 06/29/2018 Provider: LUCY STILL MD Diagnosis: Obstructive slee p apnea (adult) (pediatric) as directed -- 1 tab in am Last Documented On 07/03/2022 5:27PM By Yajaira Still MD ; [facility] Paxil 40 MG OR TABS 12/30/2017 - 06/29/2018 Provider: LUCY STILL MD Diagnosis: Obsessive-compul sive disorder, unspecified as directed --1 and 1/2 tab daily Last Documented On 07/03/2022 5:27PM By Yajaira Still MD ; [facility] Paxil 40 MG OR TABS 12/29/2017 - 12/29/2017 Provider: LUCY STILL MD Diagnosis: Major depressive disorder, recurrent, moderate as directed --1 and 1/2 tab daily Last Documented On 07/03/2022 5:27PM By Yajaira Still MD ; [facility] busPIRone HCl 15 MG OR TABS 12/29/2017 - 06/29/2018 Provider: LUCY STILL MD Diagnosis: Generalized anxi ety disorder One tablet twice a day Last Documented On 07/03/2022 5:27PM By Yajaira Still MD ; [facility] PARoxetine HCl 40 MG OR TABS 07/04/2017 - 11/01/2018 Provider: LUCY STILL MD Diagnosis: Major depressive disorder, recurrent, moderate One tablet daily Last Documented On 07/03/2022 5:27PM By Yajaira Still MD ; [facility] Modafinil 200 MG OR TABS 07/04/2017 - 12/29/2017 Provider: LUCY STILL MD Diagnosis: Obstructive slee p apnea (adult) (pediatric) as directed -- 1 tab in am - - given by Dr. Conroy Last Documented On 07/03/2022 5:27PM By Yajaira Still MD ; [facility] busPIRone HCl 15 MG OR TABS 06/29/2017 - 12/29/2017 Provider: LUCY STILL MD Diagnosis: Generalized anxi ety disorder One tablet twice a day Last Documented On 07/03/2022 5:27PM By Yajaira Still MD ; [facility] PARoxetine HCl 40 MG OR TABS 04/26/2017 - 06/29/2017 Provider: LUCY STILL MD Diagnosis: Major depressive disorder, recurrent, moderate One tablet daily Last Documented On 07/03/2022 5:27PM By Yajaira Still MD ; [facility] Modafinil 200 MG OR TABS 01/01/2017 - 06/29/2017 Provider: LUCY STILL MD Diagnosis: Obstructive slee p apnea (adult) (pediatric) as directed -- 1 tab in am - - given by Dr. Conroy Last Documented On 07/03/2022 5:27PM By Yajaira Still MD ; [facility] Tamsulosin HCl 0.4 MG OR CAPS 01/01/2017 - 06/29/2017 Provider: Diagnosis: Last Documented On 07/03/2022 5:27PM By Yajaira Still MD ; [facility] oxyBUTYnin Chloride 5 MG OR TABS 01/01/2017 - 06/30/19 Provider: Diagnosis: Last Documented On 07/03/2022 5:27PM By Yajaira Still MD ; [facility] Paxil CR 37.5 MG OR TB24 01/01/2017 - 06/29/2017 Provider: LUCY TOMAS MD Diagnosis: Major depressive disorder, recurrent, unspecified Take 1 tablet by mouth twice a day Last Documented On 07/03/2022 5:27PM By Yajaira Still MD ; [facility] busPIRone HCl 15 MG OR TABS 12/30/2016 - 06/29/2017 Provider: LUCY STILL MD Diagnosis: Generalized anxi ety disorder One tablet twice a day Last Documented On 07/03/2022 5:27PM By Yajaira Still MD ; [facility] Paxil CR 37.5 MG OR TB24 11/08/2016 - 12/30/2016 Provider: LUCY TOMAS MD Diagnosis: Major depressive disorder, recurrent, unspecified Take 1 tablet by mouth twice a day Last Documented On 07/03/2022 5:27PM By Yajaira Still MD ; [facility] Pramipexole Dihydrochloride 0.5 MG OR TABS 09/08/2016 - 06/16/2021 Provider: LUCY STILL MD Diagnosis: Restless legs syndrome as directed 1 and 1/2 tabs a t bedtime --- given by Dr. Conroy Last Documented On 07/03/2022 5:27PM By Yajaira Still MD ; [facility] Modafinil 200 MG OR TABS 09/08/2016 - 12/30/2016 Provider: LUCY STILL MD Diagnosis: Obstructive slee p apnea (adult) (pediatric) as directed -- 1 tab at 2:30 pm -- given by Dr. Conroy Last Documented On 07/03/2022 5:27PM By Yajaira Still MD ; [facility] Paxil CR 37.5 MG OR TB24 06/29/2016 - 11/08/2016 Provider: LUCY TOMAS MD Diagnosis: Major depressive disorder, recurrent, unspecified *BID - One tablet twice a day Last Documented On 07/03/2022 5:27PM By Yajaira Still MD ; [facility] busPIRone HCl 15 MG OR TABS 06/29/2016 - 12/30/2016 Provider: LUCY STILL MD Diagnosis: Generalized anxi ety disorder One tablet twice a day Last Documented On 07/03/2022 5:27PM By Yajaira Still MD ; [facility] Benadryl Allergy 25 MG OR TABS 01/01/2016 - 06/29/2016 Provider: Diagnosis: Take as directed. As needed Last Documented On 07/03/2022 5:27PM By AYDE SIMPSON LPN ; [facility] Paxil CR 37.5 MG OR TB24 01/01/2016 - 06/29/2016 Provider: LUCY TOMAS MD Diagnosis: Major depressive disorder, recurrent, unspecified *BID - One tablet twice a day Last Documented On 07/03/2022 5:27PM By Yajaira Still MD ; [facility] Modafinil 200 MG OR TABS 01/01/2016 - 06/29/2016 Provider: LUCY STILL MD Diagnosis: Obstructive slee p apnea (adult) (pediatric) as directed -- 1 tab at 2:30 pm -- given by Dr. Conroy Last Documented On 07/03/2022 5:27PM By Yajaira Still MD ; [facility] busPIRone HCl 15 MG OR TABS 01/01/2016 - 06/29/2016 Provider: LUCY STILL MD Diagnosis: Generalized anxi ety disorder One tablet twice a day Last Documented On 07/03/2022 5:27PM By Yajaira Still MD ; [facility] Paxil CR 37.5 MG OR TB24 12/12/2015 - 01/01/2016 Provider: LUCY TOMAS MD Diagnosis: Major depressive disorder, recurrent, unspecified *BID - One tablet twice a day Last Documented On 07/03/2022 5:27PM By Yajaira Still MD ; [facility] Modafinil 200 MG OR TABS 12/03/2015 - 01/01/2016 Provi conrad: Diagnosis: 1 daily Last Documented On 07/03/2022 5:27PM By AYDE SIMPSON LPN ; [facility] busPIRone HCl 15 MG OR TABS 10/29/2015 - 01/01/2016 Provider: LUCY STILL MD Diagnosis: Generalized anxi ety disorder One tablet twice a day Last Documented On 07/03/2022 5:27PM By Yajaira Still MD ; [facility] Nuvigil 200 MG OR TABS 07/01/2015 - 01/01/2016 Provider: LUCY STILL MD Diagnosis: Obstructive slee p apnea (adult) (pediatric) 1 tablet every morning --giv en discount voucher on 07/01/15 but was prescribed by Dr. Lee (PCP) Last Documented On 07/03/2022 5:27PM By Yajaira Still MD ; [facility] busPIRone HCl 15 MG OR TABS 07/01/2015 - 10/29/2015 Provider: LUCY STILL MD Diagnosis: Generalized anxi ety disorder One tablet twice a day Last Documented On 07/03/2022 5:27PM By Yajaira Still MD ; [facility] Paxil CR 37.5 MG OR TB24 07/01/2015 - 12/12/2015 Provider: LUCY TOMAS MD Diagnosis: Major depressive disorder, recurrent, unspecified *BID - One tablet twice a day Last Documented On 07/03/2022 5:27PM By Yajaira Still MD ; [facility] Nuvigil 200 MG OR TABS 06/05/2015 - 01/01/2016 Provide r: Diagnosis: 1 tablet daily Last Documented On 07/03/2022 5:27PM By AYDE SIMPSON LPN ; [facility] Modafinil 200 MG OR TABS 03/31/2015 - 07/01/2015 Provider: LUCY STILL MD Diagnosis: Obstructive slee p apnea (adult) (pediatric) as directed --1 tab in am and 1 tab at noon Last Documented On 07/03/2022 5:27PM By Yajaira Still MD ; [facility] Nuvigil 250 MG OR TABS 03/31/2015 - 04/14/2015 Provider: LUCY TOMAS MD Diagnosis: Obstructive slee p apnea (adult) (pediatric) 1 tablet every morning --14 samples for pick remover 03/31/15 Last Documented On 07/03/2022 5:27PM By Yajaira Still MD ; [facility] busPIRone HCl 15 MG OR TABS 03/20/2015 - 07/01/2015 Provider: LUCY STILL MD Diagnosis: Generalized anxi ety disorder One tablet twice a day Last Documented On 07/03/2022 5:27PM By Yajaira Still MD ; [facility] Paxil CR 37.5 MG OR TB24 03/20/2015 - 07/01/2015 Provider: LUCY TOMAS MD Diagnosis: Major depressive disorder, recurrent, unspecified *BID - One tablet twice a day Last Documented On 07/03/2022 5:27PM By Yajaira Still MD ; [facility] HM Vitamin B12 500 MCG OR TABS 01/01/2015 - 07/01/2015 Provider: Diagnosis: Take 1 tablet by mouth daily Last Documented On 07/03/2022 5:27PM By AYDE SIMPSON LPN ; [facility] Amphetamine-Dextroamphetamin e 30 MG OR TABS 01/01/2015 - 01/01/2016 Provider: Diagnosis: Sleep apnea, unspecified Take 1/2 tablet by mouth twice a day Last Documented On 07/03/2022 5:27PM By AYDE SIMPSON LPN ; [facility] Pramipexole Dihydrochloride 0.5 MG OR TABS 01/01/2015 - 06/29/2016 Provider: LUCY STILL MD Diagnosis: Restless legs syndrome as directed 1 and 1/2 tabs a t bedtime --- given by Dr. Conroy Last Documented On 07/03/2022 5:27PM By Yajaira Still MD ; [facility] busPIRone HCl 15 MG OR TABS 01/01/2015 - 03/20/2015 Provider: LUCY STILL MD Diagnosis: Generalized anxi ety disorder One tablet twice a day Last Documented On 07/03/2022 5:27PM By Yajaira Still MD ; [facility] Paxil CR 37.5 MG OR TB24 01/01/2015 - 03/20/2015 Provider: LUCY TOMAS MD Diagnosis: Major depressive disorder, recurrent, unspecified *BID - One tablet twice a day Last Documented On 07/03/2022 5:27PM By Yajaira Still MD ; [facility] Modafinil 200 MG OR TABS 01/01/2015 - 07/01/2015 Provider: LUCY STILL MD Diagnosis: Obstructive slee p apnea (adult) (pediatric) as directed 2 in the morning -- refilled by Dr. Conroy Last Documented On 07/03/2022 5:27PM By Yajaira Still MD ; [facility] Dialyvite Vitamin D 5000 125 MCG (5000 UT) OR CAPS 01/01/2015 - 01/01/2015 Provider: Diagnosis: Take 1 capsule by mouth weekly Last Documented On 07/03/2022 5:27PM By AYDE SIMPSON LPN ; [facility] HM Vitamin B12 1000 MCG OR TBCR 01/01/2015 - 6 Provider: Diagnosis: Last Documented On 07/03/2022 5:27PM By Yajaira Still MD ; [facility] Paxil CR 37.5 MG OR TB24 12/13/2014 - 01/01/2015 Provider: LUCY TOMAS MD Diagnosis: Major depressive disorder, recurrent, unspecified *BID - One tablet twice a day Last Documented On 07/03/2022 5:27PM By Yajaira Still MD ; [facility] Modafinil 200 MG OR TABS 07/29/2014 - 01/01/2015 Provider: LUCY STILL MD Diagnosis: OBSTRUCTIVE SLEE P APNEA as directed 2 in the morning -- refilled by Dr. Conroy Last Documented On 07/03/2022 5:27PM By Yajaira Still MD ; [facility] Paxil CR 37.5 MG OR TB24 07/18/2014 - 12/13/2014 Provider: LUCY TOMAS MD Diagnosis: MAJOR DEPRESSION DISORDER/RECURRENT *BID - One tablet twice a day Last Documented On 07/03/2022 5:27PM By Yajaira Still MD ; [facility] busPIRone HCl 15 MG OR TABS 07/18/2014 - 01/01/2015 Provider: LUCY STILL MD Diagnosis: GENERALIZED ANXI ETY DIS One tablet twice a day Last Documented On 07/03/2022 5:27PM By Yajaira Stlil MD ; [facility] Modafinil 200 MG OR TABS 01/18/2014 - 07/18/2014 Provider: LUCY STILL MD Diagnosis: OBSTRUCTIVE SLEE P APNEA 2 in the morning -- refilled by Dr. Conroy Last Documented On 07/03/2022 5:27PM By Yajaira Still MD ; [facility] Paxil CR 37.5 MG OR TB24 01/18/2014 - 07/18/2014 Provider: LUCY TOMAS MD Diagnosis: MAJOR DEPRESSION DISORDER/RECURRENT refilled last 12/27/13 for 3 refills Last Documented On 07/03/2022 5:27PM By Yajaira Still MD ; [facility] busPIRone HCl 15 MG OR TABS 01/18/2014 - 07/18/2014 Provider: LUCY STILL MD Diagnosis: GENERALIZED ANXI ETY DIS Last Documented On 07/03/2022 5:27PM By Yajaira Still MD ; [facility] Pramipexole Dihydrochloride 0.5 MG OR TABS 07/17/2013 - 01/01/2015 Provider: LUCY STILL MD Diagnosis: Restless Legs Syndrome 1 and 1/2 tabs at bedtime --- given by Dr. Conroy Last Documented On 07/03/2022 5:27PM By Yajaira Still MD ; [facility] Zantac 75 75 MG OR TABS 07/17/2013 - 07/01/2015 Provid er: Diagnosis: Last Documented On 07/03/2022 5:27PM By Yajaira Still MD ; [facility] ZyrTEC Allergy 10 MG OR TABS 07/17/2013 - 01/01/2016 P rovider: Diagnosis: Last Documented On 07/03/2022 5:27PM By Yajaira Still MD ; [facility] busPIRone HCl 15 MG OR TABS 07/17/2013 - 01/18/2014 Provider: LUCY STILL MD Diagnosis: GENERALIZED ANXI ETY DIS Last Documented On 07/03/2022 5:27PM By Yajaira Still MD ; [facility] Modafinil 200 MG OR TABS 07/17/2013 - 01/18/2014 Provider: LUCY STILL MD Diagnosis: OBSTRUCTIVE SLEE P APNEA 2 in the morning Last Documented On 07/03/2022 5:27PM By Yajaira Still MD ; [facility] Paxil CR 37.5 MG OR TB24 07/17/2013 - 01/18/2014 Provider: LUCY TOMAS MD Diagnosis: MAJOR DEPRESSION DISORDER/RECURRENT Last Documented On 07/03/2022 5:27PM By Yajaira Still MD ; [facility] busPIRone HCl 15 MG OR TABS 01/17/2013 - 07/17/2013 Provider: LUCY STILL MD Diagnosis: GENERALIZED ANXI ETY DIS Last Documented On 07/03/2022 5:27PM By Yajaira Still MD ; [facility] Fish Oil 1200 MG OR CAPS 01/17/2013 - 12/23/2022 Provi conrad: Diagnosis: Last Documented On 12/23/2022 4:48PM By ELISEO BARCENAS ; [facility] Paxil CR 37.5 MG OR TB24 01/17/2013 - 07/17/2013 Provider: LUCY TOMAS MD Diagnosis: MAJOR DEPRESSION DISORDER/RECURRENT Last Documented On 07/03/2022 5:27PM By Yajaira Still MD ; [facility] Modafinil 200 MG OR TABS 01/17/2013 - 07/17/2013 Provider: LUCY STILL MD Diagnosis: OBSTRUCTIVE SLEE P APNEA 2 in the morning Last Documented On 07/03/2022 5:27PM By Yajaira Still MD ; [facility] Paxil CR 37.5 MG OR TB24 07/19/2012 - 01/17/2013 Provider: LUCY TOMAS MD Diagnosis: DEPRESS PSYCHOSI S-MILD Last Documented On 07/03/2022 5:27PM By Yajaira Still MD ; [facility] Lovaza 1 GM OR CAPS 07/19/2012 - 01/17/2013 Provider: Diagnosis: 3 caps at bedtime Last Documented On 07/03/2022 5:27PM By VALENTINO GOLD ; [facility] Aspirin 81 MG OR TABS 07/19/2012 - 07/17/2013 Provider : Diagnosis: Last Documented On 07/03/2022 5:27PM By VALENTINO GOLD ; [facility] Pramipexole Dihydrochloride 0.5 MG OR TABS 07/19/2012 - 07/19/2012 Provider: Diagnosis: 1 and 1/2 tabs at bedtime Last Documented On 07/03/2022 5:27PM By VALENTINO GOLD ; [facility] Potassium Citrate ER 10 MEQ (1080 MG) OR TBCR 07/20/19 13 - 07/18/2014 Provider: Diagnosis: 2 tabs every morning Last Documented On 07/03/2022 5:27PM By VALENTINO GOLD ; [facility] busPIRone HCl 15 MG OR TABS 07/19/2012 - 01/17/2013 Provider: LUCY STILL MD Diagnosis: GENERALIZED ANXI ETY DIS Last Documented On 07/03/2022 5:27PM By Yajaira Still MD ; [facility] Pramipexole Dihydrochloride 0.5 MG OR TABS 07/19/2012 - 07/17/2013 Provider: LUCY STILL MD Diagnosis: Restless Legs Syndrome 1 and 1/2 tabs at bedtime --- given by Dr. Conroy Last Documented On 07/03/2022 5:27PM By Yajaira Still MD ; [facility] Modafinil 200 MG OR TABS 07/19/2012 - 01/17/2013 Provider: LUCY STILL MD Diagnosis: OBSTRUCTIVE SLEE P APNEA 2 in the morning Last Documented On 07/03/2022 5:27PM By Yajaira Still MD ; [facility] Chlorthalidone 25 MG OR TABS 03/08/2012 - 01/01/2016 P leathader: Diagnosis: Last Documented On 07/03/2022 5:27PM By VALENTINO GOLD ; [facility] busPIRone HCl 15 MG OR TABS 03/08/2012 - 07/19/2012 Pr ovider: Diagnosis: as needed Last Documented On 07/03/2022 5:27PM By VALENTINO GOLD ; [facility] Paxil CR 37.5 MG OR TB24 03/08/2012 - 07/19/2012 Provi conrad: Diagnosis: Last Documented On 07/03/2022 5:27PM By VALENTINO GOLD ; [facility] Crestor 10 MG OR TABS 03/08/2012 - 12/19/2019 Provider : Diagnosis: Last Documented On 07/03/2022 5:27PM By VALENTINO GOLD ; [facility] Modafinil 200 MG OR TABS 03/08/2012 - 07/19/2012 Provi cornad: Diagnosis: 1 and 1 half in the morning Last Documented On 07/03/2022 5:27PM By VALENTINO GOLD ; [facility] Niaspan 500 MG OR TBCR 03/08/2012 - 01/17/2013 Provide r: Diagnosis: Last Documented On 07/03/2022 5:27PM By VALENTINO GOLD ; [facility] Medications Administered Includes: Administered Medications in [...] vitals Last Documented: On 06/21/2023 4:59PM ; [facility] Results Includes: Results from 05/30/2023 through 05/29/2024 No Results Recorded For Specified Dates History of Present Illness History of Present Illness not supported for this document type No History of Present Illness Recorded Social History Description Last Updated Tobacco non-user 06/21/2023 Last Documented On 8:45PM ; [facility] Smoking Status Unknown Procedures and Surgical History Includes: Procedures from 05/30/2023 through 05/29/2024 Procedures Code Diagnosis Performing Provider Service Location Service Date PSYCHOTHERAPY 30 MIN W/ [place] [address] Major depressive disorder, recurrent, moderate, Generalized anxiety disorder, Restless legs syndrome, Narcolepsy without cataplexy LUCY STILL MD [facility] 06/21/2023 Last Documented On 4 4:04PM ; [facility] Medical History Includes: Medical History in [...] Last Documented On 06/21/2023 4:56PM ; [facility] Note: Imported from external source. Cipro Allergy 12/20/2018 Active Last Documented On 06/21/2023 4:56PM ; [facility] Note: Imported from external source. Cipro Allergy Hives / Urticaria 12/20/2018 R esolved Last Documented On 3 4:47PM ; [facility] Aspartame Allergy Skin Rashes / Eruption of skin 06/29/2018 Active Last Documented On 06/21/2023 4:56PM ; [facility] Note: Imported from external source. Encounters Includes: Encounters from 05/30/2023 through 05/29/2024 Encounter Provider Location Date Check-In Time Check-Out Time Diagnosis TELEHEALTH ADULT PSYCH ESTABLISHED LUCY STILL MD [facility] 06/21/19 24 4:45PM 01/19/2012 11:59PM Major Depression, Recurrent,Gene ralized Anxiety Disorder,Obses sive Compulsive Disorder,Narco lepsy,Restless Legs Syndrome,Nonor ganic Sleep Apnea Obstructive Insurance Includes: Active Insurance Policies Plan Name Member ID Group # Subscriber Relationship Effect refugio Dates 1 - [facility] [id number] MARYAM MUNOZ 03/10/2020 - Unknown Clinical Notes Includes: Signed Clinical Notes starting from 03/26/2022 * Progress note Date Encounter Last Documented by 06/21/2023 TELEHEALTH ADULT PSYCH ESTABLISH ED Last documented on 07/11/2023; 8:45 PM, LUCY STILL MD; [facility] Top of Document [...] anxiety and depression. History of Present Illness HCUY MUNOZ is a 57 year old male. [...] go for a trip to [place] and [place]. Once they landed in [place] last 03/26/2023 he felt sick and was [...] Primary Care Provider: Dr. Nicola Lee -- [place] Dr. Sukhdev Lujan -- Neurologist Dr. Rafita Salguero/Dr. Víctor Pichardo -Urologist -- [facility] Dr. Stephan Osuna -- Ophthamologist. Dr. Ron Richards -- Certified Court Interpreter Diagnoses: mosquito-like bites or red spots on [...] -- 09/2014, another lithotripsy done 12/17/16 -- [facility] (Dr. Pichardo) -- 06/2017 stones removed, 11/2017 stones removed at [facility] -- passed kidney stone at home 11/2018. Overactive bladder - and urge to urinate -- given Myrbetriq 25 mg and given Tamsulosin 0.4 mg 04/30/22 and 02/01/22. Hyperlipidemia. Diabetes mellitus. Contact dermatitis -- he took a steroid, antibiotic, benadryl. Arthritis - right hand -- appointment with Dr. Eduard Bañuelos [facility]. Restless legs syndrome. Narcolepsy --Dr. Conroy added Adderall 11/2014. Allergic reaction - unknown origin -- hospitalized at [facility] 09/27/20 -- given Epipen and Prednisone [...] PREVIOUS PSYCHIATRIC HOSPITALIZATIONS: He was treated at [facility] by Dr. Radames Boyer from [phone]. PREVIOUS PSYCHIATRIC TREATMENT: Dr. Radames Boyer from [id number]. PREVIOUS PSYCHIATRIC MEDICATIONS: Anafranil-caused weight gain Prozac, which he took for 2 years. These were given by Dr. Radames Boyer from [place]. Social History Tobacco use: Tobacco non-user. Caffeine use: No coffee consumption -- He drinks 1 can of diet soda and 1 glass of tea a day. Tobacco use: Smoking status: Never smoker. Alcohol: Not using alcohol. Drug Use: Not using drugs (Illicit). 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 Marital: Marital history -- . He [...] Clinical summary provided to patient. * Call [phone] and /or go to the nearest emergency [...] now sees a different sleep specialist in [place], [place] Dr. Lujan -- Modafinil 200 mg [...]
--- OUTSIDE RECORDS SUMMARY | 2024-05-29 18:40 | XMS_ITS | Clinical Summary ---
Author Organization [facility] Address [address] [place] [id number] Care Team Providers Care Multigraph Operator Name Role Phone Giorgio Lee MD Primary Care Provider [phone] Allergies Active Allergy Reactions Criticality Noted Date [...] Comments Blood Pressure 121/78 02/22/2021 12:30 AM INPATIENT PHARMACIST Pulse 77 02/22/2021 1:00 AM INPATIENT PHARMACIST Temperature 36.9 C (98.4 F) 02/21/2021 9:27 PM INPATIENT PHARMACIST Respiratory Rate 15 02/22/2021 1:00 AM INPATIENT PHARMACIST Oxygen Saturation 99% 02/22/2021 1:00 AM INPATIENT PHARMACIST Inhaled Oxygen Concentration - - Weight - - Height 172.7 cm (5' 8 ) 02/21/2021 9:27 PM INPATIENT PHARMACIST Body Mass Index - - Plan of [...] to complete this topic Insurance [facility] Care Teams Multigraph Operator Relationship Specialty Start Date End Date Giorgio Lee MD PCP - General FAMILY PRACTICE 12/18/20
--- OUTSIDE RECORDS SUMMARY | 2024-05-29 18:40 | XMS_ITS ---
Care Plan - [facility] Created on: May 29, 2024 CHUY MUNOZ : 1965 Sex: Male Author Organization [facility] Address [address] [place] [address] Phone Care Team Providers Care Scorer Single Name Role Phone WILIAM PHILLIPS, LUCY JUNG [facility] [phone]
--- OUTSIDE RECORDS SUMMARY | 2024-05-29 18:40 | XMS_ITS ---
Care Plan - [facility] Created on: May 29, 2024 CHUY MUNOZ : 1965 Sex: Male Author Organization [facility] Address [address] [place] [address] Phone Care Team Providers Care Heater Helper [place]ge Name Role Phone LUCY SWAIN MD Unavailable [phone]
--- OUTSIDE RECORDS SUMMARY | 2024-05-29 18:40 | XMS_ITS | Encounter Summary ---
Author Organization [facility] Address [address] [place] [address] Care Team Providers Care Bed Operator Name Role Phone Giorgio Lee MD Primary Care Provider [phone] Giorgio Lee MD Primary Care Provider [phone] Giorgio Lee MD Primary Care Provider [phone] Encounter Details Date Type Department Care Team (Late st Contact Info) Description 04/24/2012 Orders Only [facility] Health Information Management [address] [place] [address] Scanning, Provider Social History Tobacco Use Types Packs/Day Years Used Date Smoking Tobacco: Never Assessed Sex and Gender Information Value Date Recorded Sex Assigned at Not on file Legal Sex Male 11:57 PM NURSING INSTRUCTOR Gender Identity Male 01/13/2019 7:57 PM NURSING INSTRUCTOR Sexual Orientation Straight 01/13/2019 7: 57 PM NURSING INSTRUCTOR documented as of this encounter Plan of [...] on filedocumented in this encounter Care Teams Bed Operator Relationship Specialty Start Date End Date Giorgio Lee MD PCP - General 06/04/16 Giorgio Lee MD PCP - General 01/14/14 06/03/16 Giorgio Lee MD PCP - General 10/03/09 01/13/14 documented as of this encounter
--- OUTSIDE RECORDS SUMMARY | 2024-05-29 18:40 | XMS_ITS | Clinical Summary ---
Author Organization [facility] Address [address] [place] [address] Phone Care Team Providers Care Academic Success Coordinator Name Role Phone WILIAM PHILLIPS, LUCY JUNG [facility] [phone] Reason for Visit and Chief Complaint [Patient Encounter] Problems Includes: Problems addressed during this encounter and other active Problems All Visits Onset Date Resolved Date Provider Condition S tatus Narcolepsy 10/05/2014 Active Last Documented On 3 5:48PM ; [facility] Diabetes Mellitus 07/19/2012 Active Last Documented On 3 5:45PM ; [facility] 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 Last Documented On 3 5:45PM ; [facility] Major Depression, Recurrent 07/19/2012 Active Last Documented On 3 5:45PM ; [facility] Restless Legs Syndrome 07/19/2012 Ac tive Last Documented On 3 5:45PM ; [facility] Obsessive Compulsive Disorder 03/08/2012 Active Last Documented On 3 5:50PM ; [facility] Generalized Anxiety Disorder 03/08/2012 Active Last Documented On 3 5:42PM ; [facility] Gerd 03/08/2012 Active Last Documented On 3 5:42PM ; [facility] Hyperlipidemia 03/08/2012 Active Last Documented On 3 5:42PM ; [facility] Nephrolithiasis 03/08/2012 Active Last Documented On 3 5:42PM ; [facility] Plan of Treatment Future Appointments Date Time Location Provi conrad TELEHEALTH ADULT PSYCH ESTABLISHED 06/20/2024 4:40PM [facility] LUCY STLIL MD Last Documented On 5:56PM ; [facility] Assessments Includes: Assessments from [...] 06/21/2023 5:42PM By Yajaira Still MD ; [facility] busPIRone HCl 15 MG Oral Tablet 06/20/2023 Provider: LUCY STILL MD Diagnosis: Generalized anxi ety disorder One tablet twice a day Last Documented On 06/20/2023 10:49AM By Yajaira Still MD ; [facility] Pramipexole Dihydrochloride 1 MG Oral Tablet 04/20/2023 Provider: NICOLA Archibald Diagnosis: 1 and 1/2 tab in the evening Last Documented On 06/21/2023 5:48PM By Yajaira Still MD ; [facility] Fish Oil 1200 MG Oral Capsule 12/23/2022 Provider: Diagnosis: 3 caps daily Last Documented On 12/23/2022 4:48PM By ELISEO BARCENAS ; [facility] oxyBUTYnin Chloride ER 15 MG Oral Tablet Extended Release 24 Hour 11/15/2022 Provider: LAYO RUGGIERO MD Diagnosis: 1 tab daily Last Documented On 12/23/2022 4:48PM By ELISEO BARCENAS ; [facility] Januvia 100 MG OR TABS 10/02/2021 Provider: Diagnosis: 1 tab daily Last Documented On 07/03/2022 5:27PM By ELISEO BARCENAS ; [facility] FeroSul 325 (65 Fe) MG OR TABS 05/28/2021 Provider: Diagnosis: 1 tab daily Last Documented On 07/03/2022 5:27PM By ELISEO BARCENAS ; [facility] EPINEPHrine 0.3 MG/0.3ML IJ SOAJ 2020 Provider : Diagnosis: use as directed Last Documented On 07/03/2022 5:27PM By ELISEO BARCENAS ; [facility] Rosuvastatin Calcium 10 MG OR TABS 06/18/2019 Provid er: Diagnosis: one tablet daily Last Documented On 07/03/2022 5:27PM By JENNIFER CARMICHAEL ; [facility] Modafinil 200 MG OR TABS 07/24/2018 Provider: MET SHELDON STILL MD Diagnosis: Obstructive slee p apnea (adult) (pediatric) as directed -- 1 tab in am Last Documented On 07/03/2022 5:27PM By Yajaira Still MD ; [facility] Amphetamine-Dextroamphetamin e 30 MG OR TABS 01/01/2016 Provider: LUCY STILL MD Diagnosis: Sleep apnea, unspecified as directed Take 1/2 tablet in am and 1/2 tab at 2: 30 pm Last Documented On 07/03/2022 5:27PM By Yajaira Still MD ; [facility] PA Vitamin D-3 25 MCG (1000 UT) OR TABS 01/01/2015 P rovider: Diagnosis: Last Documented On 07/03/2022 5:27PM By Yajaira Still MD ; [facility] metFORMIN HCl 1000 MG TABS 07/19/2012 Provider: Diagnosis: Last Documented On 07/03/2022 5:27PM By VALENTINO GOLD ; [facility] Omeprazole 20 MG OR CPDR 03/08/2012 Provider: Diagnosis: Last Documented On 07/03/2022 5:27PM By VALENTINO GOLD ; [facility] Medications Administered Includes: Administered Medications [...] vitals Last Documented: On 07/03/2022 6:00PM ; [facility] Results Includes: Results discussed during this [...] Active Last Documented On 06/21/2023 4:56PM ; [facility] Note: Imported from external source. Cipro Allergy 12/20/2018 Active Last Documented On 06/21/2023 4:56PM ; [facility] Note: Imported from external source. Cipro Allergy Hives / Urticaria 12/20/2018 R esolved Last Documented On 4:47PM ; [facility] Aspartame Allergy Skin Rashes / Eruption of skin 06/29/2018 Active Last Documented On 06/21/2023 4:56PM ; [facility] Note: Imported from external source. Encounters Encounter Provider Location Date Check-In Time Check-Out Time Diagnosis [Patient Encounter] 12/23/2021 12:00AM 11:59PM Insurance Includes: Active Insurance Policies Plan Name Member ID Group # Subscriber Relationship Effect refugio Dates 1 - [employer] [id number] MARYAM MUNOZ 03/10/2020 - Unknown Clinical Notes Includes: Clinical Notes from this encounter No Clinical Notes Recorded
--- OUTSIDE RECORDS SUMMARY | 2024-05-29 18:40 | XMS_ITS | Encounter Summary ---
Author Organization [facility] Address [address] [place] [address] Care Team Providers Care Mergers And Acquisitions Associate Name Role Phone Giorgio Lee MD Primary Care Provider [phone] Giorgio Lee MD Primary Care Provider [phone] Giorgio Lee MD Primary Care Provider [phone] Encounter Details Date Type Department Care Team (Late st Contact Info) Description 04/26/2011 Orders Only [facility] Health Information Management [address] [place] [address] Scanning, Provider Social History Tobacco Use Types Packs/Day Years Used Date Smoking Tobacco: Never Assessed Sex and Gender Information Value Date Recorded Sex Assigned at Not on file Legal Sex Male 11:57 PM DUMP WORKER Gender Identity Male 01/13/2019 7:57 PM DUMP WORKER Sexual Orientation Straight 01/13/2019 7: 57 PM DUMP WORKER documented as of this encounter Plan of [...] on filedocumented in this encounter Care Teams Mergers And Acquisitions Associate Relationship Specialty Start Date End Date Giorgio Lee MD PCP - General 06/04/16 Giorgio Lee MD PCP - General 01/14/14 06/03/16 Giorgio Lee MD PCP - General 10/03/09 01/13/14 documented as of this encounter
--- OUTSIDE RECORDS SUMMARY | 2024-05-29 18:40 | XMS_ITS | Clinical Summary ---
Author Organization [facility] Address [address] [place] [phone] Phone Care Team Providers Care Software Packaging Engineer Name Role Phone WILIAM PHILLIPS, LUCY JUNG Unavailable [phone] Reason for Visit and Chief Complaint * PHONE CALL Problems Includes: Problems addressed during this encounter and other active Problems Current Visit Onset Date Resolved Date Provider Conditio n Status Major Depression, Recurrent 07/19/2012 LUCY STILL MD Active Last Documented On 3 5:16PM ; [facility] Restless Legs Syndrome 07/19/2012 LUCY ALVAREZ MD Active Last Documented On 3 4:33PM ; [facility] Obsessive Compulsive Disorder 03/08/2012 BRADLEY STILL MD Active Last Documented On 0 10:00AM ; [facility] Generalized Anxiety Disorder 03/08/2012 LUCY STILL MD Active Last Documented On 3 2:58PM ; [facility] Obsessive Compulsive Disorder 03/08/2012 BRADLEY STILL MD Inactive Last Documented On 7 9:03PM ; [facility] Past Visits Onset Date Resolved Date Provider Condition Status Narcolepsy 10/05/2014 LUCY STILL MD Ac tive Last Documented On 5 6:20AM ; [facility] Diabetes Mellitus 07/19/2012 LUCY Oleary MD Active Last Documented On 3 4:47PM ; [facility] 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 Nahed STILL MD Active Last Documented On 3 5:05PM ; [facility] Gerd 03/08/2012 LUCY STILL MD Ac tive Last Documented On 3 2:55PM ; [facility] Hyperlipidemia 03/08/2012 LUCY Archibald Active Last Documented On 3 2:56PM ; [facility] Nephrolithiasis 03/08/2012 LUCY STILL MD Active Last Documented On 3 2:58PM ; [facility] Plan of Treatment No Plan of Treatment Recorded Assessments Includes: Assessments from this encounter Findings - Restless legs syndrome - Last Documented On 03/17/2021 2:57PM ; [facility] - Major depression, recurrent - Last Documented On 03/17/2021 2:57PM ; [facility] - Generalized anxiety disorder - Last Documented On 03/17/2021 2:57PM ; [facility] - Obsessive compulsive disorder - Last Documented On 03/17/2021 2:57PM ; [facility] Medical Equipment - Implanted Devices Includes: Current Devices No Medical Equipment Recorded Medications Includes: Medications discussed during this encounter and other current Medications Current Medications (continue as prescribed) Paxil 40 MG Oral Tablet 06/23/2022 Provider: BRIONNA STILL MD Diagnosis: Obsessive-compul sive disorder, unspecified TAKE 1 AND 1/2 TABLETS BY [facility] DAILY DIRECTED Last Documented On 06/23/2022 5:34PM By Yajaira Still MD ; [facility] Gemtesa 75 MG Oral Tablet 06/23/2022 Provider: Diagnosis: 1 tab daily Last Documented On 06/23/2022 4:50PM By ELISEO BARCENAS ; [facility] Januvia 100 MG Oral Tablet 10/02/2021 Provider: Diagnosis: 1 tab daily Last Documented On 12/23/2021 4:46PM By ELISEO BARCENAS ; [facility] FeroSul 325 (65 Fe) MG Oral Tablet 05/28/2021 Provid er: Diagnosis: 1 tab daily Last Documented On 06/16/2021 4:55PM By ELISEO BARCENAS ; [facility] EPINEPHrine 0.3 MG/0.3ML Injection Solution Auto-injec tor 2020 Provider: Diagnosis: use as directed Last Documented On 12/18/2020 4:48PM By ELISEO BARCENAS ; [facility] Pramipexole Dihydrochloride 1 MG Oral Tablet 06/06/2020 Provider: NICOLA Archibald Diagnosis: patient takes 0.75 mg at bedtime Last Documented On 06/19/2020 4:58PM By ELISEO BARCENAS ; [facility] Rosuvastatin Calcium 10 MG Oral Tablet 06/18/2019 Pr ovider: NICOLA ANAYA MD Diagnosis: one tablet daily Last Documented On 06/20/2019 4:49PM By JENNIFER CARMICHAEL ; [facility] Modafinil 200MG Oral Tablet 07/24/2018 Provider: LUCY STILL MD Diagnosis: Obstructive slee p apnea (adult) (pediatric) as directed -- 1 tab in am Last Documented On 07/24/2018 7:44AM By Yajaira Still MD ; [facility] Amphetamine-Dextroamphetamin e 30 MG Tablet 01/01/2016 Provider: LUCY STILL MD Diagnosis: Sleep apnea, unspecified as directed Take 1/2 tablet in am and 1/2 tab at 2: 30 pm Last Documented On 01/01/2016 5:30PM By Yajaira Still MD ; [facility] [place] Vitamin D-3 1000 UNIT Tablet 01/01/2015 Provider: Diagnosis: Last Documented On 01/01/2015 2:20PM By Yajaira Still MD ; [facility] Fish Oil 1200 MG OR CAPS 01/17/2013 Provider: Diagnosis: Last Documented On 3 4:44PM By VALENTINO BARCENAS ; [facility] metFORMIN HCl 1000 MG TABS 07/19/2012 Provider: Diagnosis: Last Documented On 3 4:51PM By VALENTINO GOLD ; [facility] Omeprazole 20 MG OR CPDR 03/08/2012 Provider: Diagnosis: Last Documented On 3 2:55PM By VALENTINO GOLD ; [facility] Suspended Medications busPIRone HCl 15 MG Oral Tablet 06/23/2022 Provider: LUCY STILL MD Diagnosis: Generalized anxi ety disorder One tablet twice a day Last Documented On 06/23/2022 5:36PM By Yajaira Still MD ; [facility] Past Medications on file busPIRone HCl 7.5 MG OR TABS 03/17/2018 - 04/16/2018 P rovider: Diagnosis: Major depressive disorder, recurrent, moderate 2 tablets twice a day Last Documented On 03/17/2018 9:59AM By ELISEO BARCENAS ; [facility] Nuvigil 250 MG Tablet 03/31/2015 - 04/14/2015 Provider: LUCY TOMAS MD Diagnosis: Obstructive slee p apnea (adult) (pediatric) 1 tablet every morning --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 03/31/15 Last Documented On 03/31/2015 1:00PM By Yajaira Still MD ; [facility] Medications Administered Includes: Administered Medications [...] Active Last Documented On 06/21/2023 4:56PM ; [facility] Note: Imported from external source. Cipro Allergy 12/20/2018 Active Last Documented On 06/21/2023 4:56PM ; [facility] Note: Imported from external source. Cipro Allergy Hives / Urticaria 12/20/2018 R esolved Last Documented On 4:47PM ; [facility] Aspartame Allergy Skin Rashes / Eruption of skin 06/29/2018 Active Last Documented On 06/21/2023 4:56PM ; [facility] Note: Imported from external source. Encounters Encounter Provider Location Date Check-In Time Check-Out Time Diagnosis * PHONE CALL LUCY STILL MD [facility] 03/17/19 22 2:40PM 11:59PM Major Depression, Recurrent,Gene ralized Anxiety Disorder,Obses sive Compulsive Disorder,Restl ess Legs Syndrome Insurance Includes: Active Insurance Policies Plan Name Member ID Group # Subscriber Relationship Effect refugio Dates 1 - [facility] [id number] MARYAM MUNOZ 03/10/2020 - Unknown Clinical Notes Includes: Clinical Notes from this encounter No Clinical Notes Recorded
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
--- OUTSIDE RECORDS SUMMARY | 2024-05-29 18:40 | XMS_ITS | Clinical Summary ---
Author Organization [facility] Address [address] [place] [address] Phone Care Team Providers Care Occ Ther Name Role Phone WILIAM PHILLIPS, LUCY JUNG [facility] [phone] Reason for Visit and Chief Complaint [Patient Encounter] Problems Includes: Problems addressed during this encounter and other active Problems All Visits Onset Date Resolved Date Provider Condition S tatus Narcolepsy 10/05/2014 Active Last Documented On 3 5:48PM ; [facility] Diabetes Mellitus 07/19/2012 Active Last Documented On 3 5:45PM ; [facility] 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 Last Documented On 3 5:45PM ; [facility] Major Depression, Recurrent 07/19/2012 Active Last Documented On 3 5:45PM ; [facility] Restless Legs Syndrome 07/19/2012 Ac tive Last Documented On 3 5:45PM ; [facility] Obsessive Compulsive Disorder 03/08/2012 [...] 5:56PM ; [facility] Assessments Includes: Assessments from [...] BARCENAS ; [facility] Current Medications (continue as prescribed) Paxil 40 MG Oral Tablet 06/21/2023 Provider: BRIONNA STILL MD Diagnosis: Obsessive-compul sive disorder, unspecified TAKE 1 AND 1/2 TABLETS BY [facility] DAILY DIRECTED Last Documented On 06/21/2023 5:42PM By Yajaira Still MD ; [facility] busPIRone HCl 15 MG [...] On 07/03/2022 5:27PM By ELISEO BARCENAS ; [facility] Rosuvastatin Calcium 10 MG OR TABS 06/18/2019 Provid er: Diagnosis: one tablet daily Last Documented On 07/03/2022 5:27PM By JENNIFER CARMICHAEL ; [facility] Modafinil 200 MG OR [...] 07/03/2022 5:27PM By Yajaira Still MD ; [facility] metFORMIN HCl 1000 MG TABS 07/19/2012 Provider: Diagnosis: Last Documented On 07/03/2022 5:27PM By VALENTINO GOLD ; [facility] Omeprazole 20 MG OR CPDR 03/08/2012 Provider: Diagnosis: Last Documented On 07/03/2022 5:27PM By VALENTINO GOLD ; [facility] Medications Administered Includes: Administered Medications from [...] 6:00PM ; [facility] Results Includes: Results discussed during [...] Subscriber Relationship Effect refugio Dates 1 - [facility] [id number] MARYAM MUNOZ 03/10/2020 - Unknown Clinical Notes Includes: Clinical Notes from this encounter No Clinical Notes Recorded
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
[2024-05-29] MEDS: ACETAMINOPHEN 325 MG TABLET 650 MG PO (20:13)
[2024-05-29 21:07] LABS: Glucose Point of Care 106 mg/dl (65-105)
[2024-05-29] MEDS: busPIRone HCL 5 MG TABLET 15 MG PO (22:29)
[2024-05-30 05:20] LABS: Basophils Percent Auto 0.1 % (0.2-1.2); Eosinophils Absolute Auto 0.4 K/mm3 (0-0.3); Eosinophils Percent Auto 6.2 % (0-4.4); Hemoglobin 12.5 g/dL (14.0-18.0); Immature Granulocyte Absolute 0.02 K/mm3 (0.00-0.031); Immature Granulocyte Percent A 0.3 % (0-0.5); Lymphocytes Absolute Auto 1.97 K/mm3 (0.9-3.2); Lymphocytes Percent Auto 27.6 % (18.3-44.2); Mean Corpuscular HGB Conc 32.9 g/dl (32-36); Mean Corpuscular Hemoglobin 29.5 pg (26-34); Mean Corpuscular Volume 89.6 fl (80-100); Mean Platelet Volume 10.7 fl (7.4-10.4); Monocytes Absolute Auto 0.3 K/mm3 (0.1-0.6); Monocytes Percent Auto 4.6 % (2.6-8.5); Neutrophils Absolute Auto 4.4 K/mm3 (1.3-6.7); Neutrophils Percent Auto 61.2 % (45.5-73.1); Platelet Count Result 152 k/mm3 (150-375); Red Blood Count 4.24 M/mm3 (4.6-6.20); Red Cell Distribution Width 12.4 % (11.5-14.5); White Blood Count 7.2 K/mm3 (4.5-10.0)
[2024-05-30 05:24] LABS: Alanine Aminotransferase 20 U/L (6-50); Albumin Level 3.1 g/dL (3.5-5.1); Alkaline Phosphatase 81 U/L (38-126); Anion Gap 3 mmol/L (4-12); Aspartate Amino Transferase 22 U/L (17-59); Bilirubin,Total 0.4 mg/dL (0.2-1.3); Blood Urea Nitrogen 17 mg/dL (9-20); Calcium 8.5 mg/dL (8.4-10.2); Carbon Dioxide 30 mmol/L (22-30); Chloride 106 mmol/L (98-107); Estimated CRCL calculation 80 ml/min; Estimated Glomerular Filt Rate > 60; Glucose 95 mg/dL (65-110); Potassium 4.1 mmol/L (3.4-5.0); Sodium 139 mmol/L (137-145)
[2024-05-30] MEDS: LACTATED RINGERS 1,000 ML 150 ML IV CONT ×3 (05:50→20:20)
[2024-05-30 06:00] VITALS: BP 95/54; PULSE 61; RESP 20; TEMP 36.7; O2SAT 95
[2024-05-30 08:18] LABS: Glucose Point of Care 86 mg/dl (65-105)
[2024-05-30 08:22] LABS: Magnesium 1.5 mg/dL (1.6-2.3)
[2024-05-30] MEDS: modafiniL (*CRX) 200 MG TABLET PO (09:50)
[2024-05-30] MEDS: SITagliptin PHOSPHATE 100 MG TABLET PO (09:50)
[2024-05-30] MEDS: PANTOPRAZOLE 40 MG TABLET PO (09:50)
[2024-05-30] MEDS: FERROUS SULFATE 325 MG TABLET DR PO (09:50)
[2024-05-30] MEDS: ROSUVASTATIN 10 MG TABLET PO (09:51)
[2024-05-30] MEDS: busPIRone HCL 5 MG TABLET 15 MG PO ×2 (09:51→17:45)
[2024-05-30] MEDS: PARoxetine 20 MG TABLET 60 MG PO (09:51)
[2024-05-30] MEDS: PRAMIPEXOLE 0.5 MG TABLET 1.5 MG PO (09:51)
[2024-05-30] MEDS: MAGNESIUM SULF 2 GM/WATER 50ML 2 GM/50 ML BAG IVPB (09:52)
--- NOTE | 2024-05-30 11:26 | P.PNIM_ITS ---
Progress Note: A&P Assessment and Plan (1) Nausea vomiting and diarrhea: Code(s): R11.2 - Nausea with vomiting, unspecified; R19.7 - Diarrhea, unspecified Status: Acute Assessment and Plan: - CT abd/pelvis: 1. Wall thickening of multiple loops of small bowel, consistent with enteritis versus interstitial edema. 2. Stones in the left ureter and left renal pelvis with mild left hydronephrosis and left internal ureteral stent in expected position. 3. Bilateral nonobstructing kidney stones. - WBC 7.2, previously 3.9 on 05/06/24 - check stool culture and c. Diff, recent Bactrim course/hospital stay - rehydrate: 2L bolus -> 125 mL/hr. Currently LR @ 150 ml/hr. - antiemetics prn - UA not consistent with UTI, only 1+ leuks. urine culture pending, follow. - clear liquid, advance diet to diabetic as tolerated for supper. (2) DENA (acute kidney injury): Code(s): N17.9 - Acute kidney failure, unspecified Status: Acute Assessment and Plan: - hemoglobin 18.8 (previously 13.3 on 05/06/2024), creatinine 1.37 and GFR 53 (previously 0.7 and GFR >60 on 05/06/2024) - Today creatinine 0.83 and GFR >60. - high suspicion for acute dehydration resulting in an DENA given reported hx of nausea, vomiting, diarrhea and hemoconcentration on labs. rehydrate over the next 24 hours, if no improvement in Hgb/renal function. consider further work up and consultation. - trend renal function and I&Os - trend electrolytes, correct as needed (3) Left renal stone: Code(s): N20.0 - Calculus of kidney Status: Acute Assessment and Plan: - stent placement on 05/05/24, lithotripsy on 05/18, planned stent removal on 05/31 - stent in expected position on CT - urology consulted with plan for Tuesday to proceed with cysto left retrograde left ureteroscopy with laser of any residual stones. (4) Type 2 diabetes mellitus without complications: Qualifiers: Diabetes mellitus residential insulin use: without dedicated intermodal truck driver use Qualified Code(s): E11.9 - Type 2 diabetes mellitus without complications Code(s): E11.9 - Type 2 diabetes mellitus without complications Status: Chronic Assessment and Plan: - hypoglycemia protocol - POC blood glucose ACHS - home medication: Hold metformin in case of need for contrast. Continue Januvia. - correct regimen ordered - moderate dose TIDWM, based off BMI - A1C 7.6% on 03/06/2024 (5) Hypotension: Code(s): I95.9 - Hypotension, unspecified Status: Acute Assessment and Plan: * Blood pressure in the afternoon was 86/50, patient was asymptomatic. * NS @ 250 ml/hr for 500 ml. * Repeat blood pressure was 90/64. Subjective Date/time seen: 05/30/24 11:26 Interval history: Patient reports feeling tired. Patient denies chest pain, palpitations, headache, and dizziness. Patient reports that he felt better after diarrhea and vomiting, both have subsided. Review of Systems Review of Systems: All systems reviewed & are unremarkable except as noted in HPI and below Exam Const: General: comfortable and no acute distress Resp: Effort & Inspection: normal respiratory effort Auscultation: clear to auscultation bilaterally Cardio: Rate: regular rate Rhythm: regular rhythm GI: GI Palp: Yes Soft to palpation Auscultation: normal bowel sounds Skin: General skin exam: no rashes or lesions noted Neuro: Speech: normal speech Extrem: General: no pedal edema Psych: Mental Status: mental status grossly normal Affect: normal affect Objective Data Vital Signs Vital Signs: Vital Signs - 24 hr 05/29/24 12:00 05/29/24 13:00 05/29/24 14:03 Temperature 98.0 F 97.9 F 97.7 F Pulse Rate 108 H 96 85 Respiratory Rate 20 17 14 Blood Pressure 128/90 126/88 110/78 Pulse Oximetry 92 97 97 Oxygen Delivery 05/29/24 20:00 05/29/24 21:08 05/30/24 06:00 Temperature 98.1 F 98.1 F Pulse Rate 74 74 61 Respiratory Rate 20 20 20 Blood Pressure 101/58 L 95/54 L Pulse Oximetry 98 98 95 Oxygen Delivery Room Air Intake/Output Intake/Output: Intake & Output 05/27/24 05/28/24 05/29/24 05/30/24 23:59 23:59 23:59 23:59 Intake Total 3332.5 1380 Balance 3332.5 1380 Meds/Results Medications: Active Medications Generic Name Dose Route Start Last Admin Trade Name Freq PRN Reason Stop Dose Admin Acetaminophen 650 mg 05/29/24 13:31 05/29/24 20:13 Acetaminophen 325 Mg Tablet PO 650 mg Q4H PRN Administration Mild Pain (1-3) or Fever Buspirone HCl 15 mg 05/29/24 21:40 05/30/24 09:51 Buspirone Hcl 5 Mg Tablet PO 15 mg BID LESLEE Administration Darifenacin 7.5 mg 05/30/24 09:00 05/30/24 09:48 Darifenacin 7.5 Mg Tab.Er.24h PO 7.5 mg DAILY LESLEE Administration Dextrose 12.5 gm 05/29/24 13:54 Dextrose 50% 25 Gm/50 Ml Syringe IV PUSH PRN PRN Hypoglycemia Protocol Ferrous Sulfate 325 mg 05/30/24 09:00 05/30/24 09:50 Ferrous Sulfate [address] PO 325 mg DAILY LESLEE Administration Glucagon 1 mg 05/29/24 13:54 Glucagon For Inj 1 Mg Vial IM PRN PRN Hypoglycemia Protocol Glucose 15 gm 05/29/24 13:54 Glucose Oral Gel 15 Gm Of Glucse In 37.5 Gm Tube PO PRN PRN Hypoglycemia Protocol Lactated Ringer's 1,000 mls @ 150 mls/hr 05/29/24 13:35 05/30/24 05:50 Lr - Lactated Ringers Iv IV CONT 150 mls/hr .Q6H40M LESLEE Administration Dextrose 1,000 mls @ 100 mls/hr 05/29/24 13:54 Dextrose 5% 1,000 Ml IVPB PRN PRN Hypoglycemia Protocol Insulin Aspart 3 - 6 units 05/29/24 17:00 05/30/24 09:45 Insulin Aspart (*Bkc) 100 Units/Ml SUB-Q Not Given TIDWM LESLEE Protocol Modafinil 200 mg 05/30/24 09:00 05/30/24 09:50 Modafinil (*Crx) 200 Mg Tablet PO 200 mg QAM LESLEE Administration Ondansetron HCl 4 mg 05/29/24 13:31 Ondansetron Inj 4 Mg/2 Ml Vial IV PUSH Q4H PRN Nausea Pantoprazole Sodium 40 mg 05/30/24 09:00 05/30/24 09:50 Pantoprazole 40 Mg Tablet PO 40 mg QAM LESLEE Administration Paroxetine HCl 60 mg 05/30/24 09:00 05/30/24 09:51 Paroxetine 20 Mg Tablet PO 60 mg DAILY LESLEE Administration Pramipexole Dihydrochloride 1.5 mg 05/30/24 09:00 05/30/24 09:51 Pramipexole 0.5 Mg Tablet PO 1.5 mg DAILY LESLEE Administration Rosuvastatin Calcium 10 mg 05/30/24 09:00 05/30/24 09:51 Rosuvastatin 10 Mg Tablet PO 10 mg DAILY LESLEE Administration Sitagliptin Phosphate 100 mg 05/30/24 09:00 05/30/24 09:50 Sitagliptin Phosphate 100 Mg Tablet PO 100 mg DAILY LESLEE Administration Radiology Results: ITS Impressions Abdomen/Pelvis CT 05/29/24 11:11 IMPRESSION: 1. Wall thickening of multiple loops of small bowel, consistent with enteritis versus interstitial edema. 2. Stones in the left ureter and left renal pelvis with mild left hydronephrosis and left internal ureteral stent in expected position. 3. Bilateral nonobstructing kidney stones. Labs Labs: Laboratory Results - last 24 hr 05/29/24 05/29/24 05/29/24 12:23 16:49 21:01 WBC RBC Hgb Hct MCV MCH MCHC RDW Plt Count MPV Immature Gran % (Auto) Neut % (Auto) Lymph % (Auto) [place] % (Auto) Eos % (Auto) Baso % (Auto) Lymph # (Auto) [place] # (Auto) Eos # (Auto) Baso # (Auto) Abs Immat Gran (auto) Absolute Neuts (auto) Absolute Nucleated RBC Nucleated RBC % Sodium Potassium Chloride Carbon Dioxide Anion Gap BUN Creatinine Estim Creat Clear Calc Estimated GFR Glucose POC Capillary Glucose 159 H 106 H Calcium Magnesium Total Bilirubin AST ALT Alkaline Phosphatase Total Protein Albumin Urine Color Light brown H Urine Appearance Cloudy H Urine pH 5.5 Ur Specific [place] 1.022 Urine Protein 3+ H Urine Glucose (UA) Trace H Urine Ketones Trace H Ur Blood (Man) 3+ H Urine Nitrate Negative Urine Bilirubin Negative Urine Urobilinogen 0.2 Leukocyte Esterase Rfl 1+ H 05/30/24 05/30/24 05/30/24 04:57 04:58 08:15 WBC 7.2 RBC 4.24 L Hgb 12.5 L D Hct 38.0 L MCV 89.6 MCH 29.5 MCHC 32.9 RDW 12.4 Plt Count 152 MPV 10.7 H Immature Gran % (Auto) 0.3 Neut % (Auto) 61.2 Lymph % (Auto) 27.6 [place] % (Auto) 4.6 Eos % (Auto) 6.2 H Baso % (Auto) 0.1 L Lymph # (Auto) 1.97 [place] # (Auto) 0.3 Eos # (Auto) 0.4 H Baso # (Auto) 0.0 Abs Immat Gran (auto) 0.02 Absolute Neuts (auto) 4.4 Absolute Nucleated RBC 0.000 Nucleated RBC % 0.0 Sodium 139 Potassium 4.1 Chloride 106 Carbon Dioxide 30 Anion Gap 3 L BUN 17 Creatinine 0.83 Estim Creat Clear Calc 80 Estimated GFR > 60 Glucose 95 POC Capillary Glucose 86 Calcium 8.5 Magnesium 1.5 L Total Bilirubin 0.4 AST 22 ALT 20 Alkaline Phosphatase 81 Total Protein 5.0 L Albumin 3.1 L Urine Color Urine Appearance Urine pH Ur Specific [place] Urine Protein Urine Glucose (UA) Urine Ketones Ur Blood (Man) Urine Nitrate Urine Bilirubin Urine Urobilinogen Leukocyte Esterase Rfl Quality VTE Prophylaxis VTE prophylaxis: mechanical ordered
[2024-05-30 11:54] LABS: Glucose Point of Care 118 mg/dl (65-105)
[2024-05-30 14:00] VITALS: BP 86/50; PULSE 57; RESP 16; TEMP 36.4; O2SAT 95
[2024-05-30] MEDS: SODIUM CHLORIDE 0.9% IV 500 ML 250 ML IV CONT (15:19)
[2024-05-30 16:05] VITALS: BP 90/64
[2024-05-30 16:46] LABS: Glucose Point of Care 122 mg/dl (65-105)
[2024-05-30 20:00] VITALS: PULSE 57; RESP 16; O2SAT 95
[2024-05-30] MEDS: ACETAMINOPHEN 325 MG TABLET 650 MG PO (20:20)
[2024-05-30 21:47] VITALS: BP 116/64; PULSE 78; RESP 18; TEMP 36.7; O2SAT 99
[2024-05-30 21:57] LABS: Glucose Point of Care 124 mg/dl (65-105)
[2024-05-31 05:07] LABS: Basophils Percent Auto 0.2 % (0.2-1.2); Eosinophils Absolute Auto 0.8 K/mm3 (0-0.3); Eosinophils Percent Auto 12.5 % (0-4.4); Hematocrit 37.4 % (42.0-52.0); Hemoglobin 12.2 g/dL (14.0-18.0); Immature Granulocyte Absolute 0.03 K/mm3 (0.00-0.031); Immature Granulocyte Percent A 0.5 % (0-0.5); Immature Platelet Fraction Pct 3.8 % (0.9-11.2); Lymphocytes Absolute Auto 2.09 K/mm3 (0.9-3.2); Lymphocytes Percent Auto 32.8 % (18.3-44.2); Mean Corpuscular HGB Conc 32.6 g/dl (32-36); Mean Corpuscular Hemoglobin 29.6 pg (26-34); Mean Corpuscular Volume 90.8 fl (80-100); Mean Platelet Volume 10.6 fl (7.4-10.4); Monocytes Absolute Auto 0.3 K/mm3 (0.1-0.6); Monocytes Percent Auto 5.2 % (2.6-8.5); Neutrophils Absolute Auto 3.1 K/mm3 (1.3-6.7); Neutrophils Percent Auto 48.8 % (45.5-73.1); Platelet Count Result 136 k/mm3 (150-375); Red Blood Count 4.12 M/mm3 (4.6-6.20); Red Cell Distribution Width 12.2 % (11.5-14.5); White Blood Count 6.4 K/mm3 (4.5-10.0)
[2024-05-31 05:22] LABS: Alanine Aminotransferase 19 U/L (6-50); Albumin Level 3.2 g/dL (3.5-5.1); Alkaline Phosphatase 84 U/L (38-126); Anion Gap 4 mmol/L (4-12); Aspartate Amino Transferase 20 U/L (17-59); Bilirubin,Total 0.1 mg/dL (0.2-1.3); Blood Urea Nitrogen 10 mg/dL (9-20); Calcium 8.1 mg/dL (8.4-10.2); Carbon Dioxide 29 mmol/L (22-30); Chloride 107 mmol/L (98-107); Estimated CRCL calculation 79 ml/min; Estimated Glomerular Filt Rate > 60; Glucose 120 mg/dL (65-110); Magnesium 1.7 mg/dL (1.6-2.3); Sodium 140 mmol/L (137-145)
[2024-05-31] MEDS: LACTATED RINGERS 1,000 ML 150 ML IV CONT ×2 (05:44→05:45)
[2024-05-31 06:00] VITALS: BP 116/60; PULSE 69; RESP 18; TEMP 36.9; O2SAT 96
[2024-05-31 08:21] LABS: Glucose Point of Care 92 mg/dl (65-105)
[2024-05-31] MEDS: PANTOPRAZOLE 40 MG TABLET PO (08:45)
[2024-05-31] MEDS: PRAMIPEXOLE 0.5 MG TABLET 1.5 MG PO (08:45)
[2024-05-31] MEDS: FERROUS SULFATE 325 MG TABLET DR PO (08:45)
[2024-05-31] MEDS: busPIRone HCL 5 MG TABLET 15 MG PO ×2 (08:45→17:02)
[2024-05-31] MEDS: modafiniL (*CRX) 200 MG TABLET PO (08:46)
[2024-05-31] MEDS: SITagliptin PHOSPHATE 100 MG TABLET PO (08:46)
[2024-05-31] MEDS: PARoxetine 20 MG TABLET 60 MG PO (08:46)
[2024-05-31] MEDS: ROSUVASTATIN 10 MG TABLET PO (08:46)
--- NOTE | 2024-05-31 10:07 | P.PNIM_ITS ---
Progress Note: A&P Assessment and Plan (1) Nausea vomiting and diarrhea: Code(s): R11.2 - Nausea with vomiting, unspecified; R19.7 - Diarrhea, unspecified Status: Acute Assessment and Plan: - CT abd/pelvis: 1. Wall thickening of multiple loops of small bowel, consistent with enteritis versus interstitial edema. 2. Stones in the left ureter and left renal pelvis with mild left hydronephrosis and left internal ureteral stent in expected position. 3. Bilateral nonobstructing kidney stones. - WBC 6.4, previously 3.9 on 05/06/24 - check stool culture and c. Diff, recent Bactrim course/hospital stay - rehydrate: 2L bolus -> 125 mL/hr. Decreased LR @ 75 ml/hr. - antiemetics prn - UA not consistent with UTI, only 1+ leuks. urine culture pending, follow. - Tolerating diabetic diet. (2) DENA (acute kidney injury): Code(s): N17.9 - Acute kidney failure, unspecified Status: Acute Assessment and Plan: - hemoglobin 18.8 (previously 13.3 on 05/06/2024), creatinine 1.37 and GFR 53 (previously 0.7 and GFR >60 on 05/06/2024) - Today creatinine 0.84 and GFR >60. - trend renal function and I&Os - trend electrolytes, correct as needed (3) Left renal stone: Code(s): N20.0 - Calculus of kidney Status: Acute Assessment and Plan: - stent placement on 05/05/24, lithotripsy on 05/18, planned stent removal on 05/31. - stent in expected position on CT. - urology consulted with plan for Tuesday to proceed with cysto left retrograde left ureteroscopy with laser of any residual stones and stent exchange. NPO after midnight. (4) Type 2 diabetes mellitus without complications: Qualifiers: Diabetes mellitus retail personal banker insulin use: without retail personal banker use Qualified Code(s): E11.9 - Type 2 diabetes mellitus without complications Code(s): E11.9 - Type 2 diabetes mellitus without complications Status: Chronic Assessment and Plan: - hypoglycemia protocol - POC blood glucose ACHS - home medication: Hold Metformin in case of need for contrast. Continue Januvia. - correct regimen ordered - moderate dose TIDWM, based off BMI - A1C 7.6% on 03/06/2024 (5) Hypotension: Code(s): I95.9 - Hypotension, unspecified Status: Acute Assessment and Plan: * Blood pressure 107/67, improved. Subjective Date/time seen: 05/31/24 10:07 Interval history: Patient reports feeling better today. Patient denies chest pain, palpitations, nausea, vomiting, or diarrhea. Patient reports tolerating food well. Review of Systems Review of Systems: All systems reviewed & are unremarkable except as noted in HPI and below Exam Const: General: comfortable and no acute distress Resp: Effort & Inspection: normal respiratory effort Auscultation: clear to auscultation bilaterally Cardio: Rate: regular rate Rhythm: regular rhythm GI: GI Palp: Yes Soft to palpation Auscultation: normal bowel sounds Skin: General skin exam: no rashes or lesions noted Neuro: Speech: normal speech Extrem: General: no pedal edema Psych: Mental Status: mental status grossly normal Affect: normal affect Objective Data Vital Signs Vital Signs: Vital Signs - 24 hr 05/30/24 14:00 05/30/24 16:05 05/30/24 20:00 Temperature 97.6 F Pulse Rate 57 L 57 L Respiratory Rate 16 16 Blood Pressure 86/50 L 90/64 L Pulse Oximetry 95 95 Oxygen Delivery Room Air 05/30/24 21:47 05/31/24 06:00 Temperature 98.1 F 98.4 F Pulse Rate 78 69 Respiratory Rate 18 18 Blood Pressure 116/64 116/60 Pulse Oximetry 99 96 Oxygen Delivery Intake/Output Intake/Output: Intake & Output 05/28/24 05/29/24 05/30/24 05/31/24 23:59 23:59 23:59 23:59 Intake Total 3332.5 4652.5 1542.5 Balance 3332.5 4652.5 1542.5 Meds/Results Medications: Active Medications Generic Name Dose Route Start Last Admin Trade Name Freq PRN Reason Stop Dose Admin Acetaminophen 650 mg 05/29/24 13:31 05/30/24 20:20 Acetaminophen 325 Mg Tablet PO 650 mg Q4H PRN Administration Mild Pain (1-3) or Fever Buspirone HCl 15 mg 05/29/24 21:40 05/31/24 08:45 Buspirone Hcl 5 Mg Tablet PO 15 mg BID LESLEE Administration Darifenacin 7.5 mg 05/30/24 09:00 05/31/24 08:45 Darifenacin 7.5 Mg Tab.Er.24h PO 7.5 mg DAILY LESLEE Administration Dextrose 12.5 gm 05/29/24 13:54 Dextrose 50% 25 Gm/50 Ml Syringe IV PUSH PRN PRN Hypoglycemia Protocol Ferrous Sulfate 325 mg 05/30/24 09:00 05/31/24 08:45 Ferrous Sulfate [address] PO 325 mg DAILY LESLEE Administration Glucagon 1 mg 05/29/24 13:54 Glucagon For Inj 1 Mg Vial IM PRN PRN Hypoglycemia Protocol Glucose 15 gm 05/29/24 13:54 Glucose Oral Gel 15 Gm Of Glucse In 37.5 Gm Tube PO PRN PRN Hypoglycemia Protocol Lactated Ringer's 1,000 mls @ 150 mls/hr 05/29/24 13:35 05/31/24 05:45 Lr - Lactated Ringers Iv IV CONT 150 mls/hr .Q6H40M LESLEE Administration Dextrose 1,000 mls @ 100 mls/hr 05/29/24 13:54 Dextrose 5% 1,000 Ml IVPB PRN PRN Hypoglycemia Protocol Insulin Aspart 3 - 6 units 05/29/24 17:00 05/31/24 08:21 Insulin Aspart (*Bkc) 100 Units/Ml SUB-Q Not Given TIDWM LESLEE Protocol Modafinil 200 mg 05/30/24 09:00 05/31/24 08:46 Modafinil (*Crx) 200 Mg Tablet PO 200 mg QAM LESLEE Administration Ondansetron HCl 4 mg 05/29/24 13:31 Ondansetron Inj 4 Mg/2 Ml Vial IV PUSH Q4H PRN Nausea Pantoprazole Sodium 40 mg 05/30/24 09:00 05/31/24 08:45 Pantoprazole 40 Mg Tablet PO 40 mg QAM LESLEE Administration Paroxetine HCl 60 mg 05/30/24 09:00 05/31/24 08:46 Paroxetine 20 Mg Tablet PO 60 mg DAILY LESLEE Administration Pramipexole Dihydrochloride 1.5 mg 05/30/24 09:00 05/31/24 08:45 Pramipexole 0.5 Mg Tablet PO 1.5 mg DAILY LESLEE Administration Rosuvastatin Calcium 10 mg 05/30/24 09:00 05/31/24 08:46 Rosuvastatin 10 Mg Tablet PO 10 mg DAILY LESLEE Administration Sitagliptin Phosphate 100 mg 05/30/24 09:00 05/31/24 08:46 Sitagliptin Phosphate 100 Mg Tablet PO 100 mg DAILY LESLEE Administration Radiology Results: ITS Impressions Abdomen/Pelvis CT 05/29/24 11:11 IMPRESSION: 1. Wall thickening of multiple loops of small bowel, consistent with enteritis versus interstitial edema. 2. Stones in the left ureter and left renal pelvis with mild left hydronephrosis and left internal ureteral stent in expected position. 3. Bilateral nonobstructing kidney stones. Labs Labs: Laboratory Results - last 24 hr 05/30/24 05/30/24 05/30/24 11:51 16:37 21:49 WBC RBC Hgb Hct MCV MCH MCHC RDW Plt Count MPV Immature Gran % (Auto) Neut % (Auto) Lymph % (Auto) [place] % (Auto) Eos % (Auto) Baso % (Auto) Lymph # (Auto) [place] # (Auto) Eos # (Auto) Baso # (Auto) Abs Immat Gran (auto) Absolute Neuts (auto) Absolute Nucleated RBC Nucleated RBC % % Immature Plt Fraction Sodium Potassium Chloride Carbon Dioxide Anion Gap BUN Creatinine Estim Creat Clear Calc Estimated GFR Glucose POC Capillary Glucose 118 H 122 H 124 H Calcium Magnesium Total Bilirubin AST ALT Alkaline Phosphatase Total Protein Albumin 05/31/24 05/31/24 04:42 08:18 WBC 6.4 RBC 4.12 L Hgb 12.2 L Hct 37.4 L MCV 90.8 MCH 29.6 MCHC 32.6 RDW 12.2 Plt Count 136 L MPV 10.6 H Immature Gran % (Auto) 0.5 Neut % (Auto) 48.8 Lymph % (Auto) 32.8 [place] % (Auto) 5.2 Eos % (Auto) 12.5 H Baso % (Auto) 0.2 Lymph # (Auto) 2.09 [place] # (Auto) 0.3 Eos # (Auto) 0.8 H Baso # (Auto) 0.0 Abs Immat Gran (auto) 0.03 Absolute Neuts (auto) 3.1 Absolute Nucleated RBC 0.000 Nucleated RBC % 0.0 % Immature Plt Fraction 3.8 Sodium 140 Potassium 4.0 Chloride 107 Carbon Dioxide 29 Anion Gap 4 BUN 10 D Creatinine 0.84 Estim Creat Clear Calc 79 Estimated GFR > 60 Glucose 120 H POC Capillary Glucose 92 Calcium 8.1 L Magnesium 1.7 Total Bilirubin 0.1 L AST 20 ALT 19 Alkaline Phosphatase 84 Total Protein 5.0 L Albumin 3.2 L Quality VTE Prophylaxis VTE prophylaxis: mechanical ordered
[2024-05-31 11:46] LABS: Glucose Point of Care 104 mg/dl (65-105)
--- NOTE | 2024-05-31 12:48 | WPDUROPN2 ---
Progress Note: A&P Assessment and Plan (1) Calculus of ureter: Code(s): N20.1 - Calculus of ureter Status: Acute Assessment and Plan: Will plan a cystoscopy, left retrograde pyelogram, left ureteroscopy with stone extraction, laser, stent exchange in the morning. NPO after midnight Subjective Subjective Date/Time Seen: 05/31/24 12:48 Principal diagnosis: Left renal and ureteral calculi Exam Const: General: cooperative and comfortable Resp: Effort & Inspection: normal respiratory effort Cardio: Rate: regular rate Rhythm: regular rhythm Objective Data Vital Signs Vital Signs: Vital Signs - 24 hr 05/30/24 14:00 05/30/24 16:05 05/30/24 20:00 Temperature 36.4 C Pulse Rate 57 L 57 L Respiratory Rate 16 16 Blood Pressure 86/50 L 90/64 L Pulse Oximetry 95 95 Oxygen Delivery Room Air 05/30/24 21:47 05/31/24 06:00 Temperature 36.7 C 36.9 C Pulse Rate 78 69 Respiratory Rate 18 18 Blood Pressure 116/64 116/60 Pulse Oximetry 99 96 Oxygen Delivery Intake/Output Intake/Output: Intake & Output 05/28/24 05/29/24 05/30/24 05/31/24 23:59 23:59 23:59 23:59 Intake Total 3332.5 4652.5 2217.5 Balance 3332.5 4652.5 2217.5 Meds/Results Medications: Active Medications Generic Name Dose Route Start Last Admin Trade Name Freq PRN Reason Stop Dose Admin Acetaminophen 650 mg 05/29/24 13:31 05/30/24 20:20 Acetaminophen 325 Mg Tablet PO 650 mg Q4H PRN Administration Mild Pain (1-3) or Fever Buspirone HCl 15 mg 05/29/24 21:40 05/31/24 08:45 Buspirone Hcl 5 Mg Tablet PO 15 mg BID LESLEE Administration Darifenacin 7.5 mg 05/30/24 09:00 05/31/24 08:45 Darifenacin 7.5 Mg Tab.Er.24h PO 7.5 mg DAILY LESLEE Administration Dextrose 12.5 gm 05/29/24 13:54 Dextrose 50% 25 Gm/50 Ml Syringe IV PUSH PRN PRN Hypoglycemia Protocol Ferrous Sulfate 325 mg 05/30/24 09:00 05/31/24 08:45 Ferrous Sulfate [address] PO 325 mg DAILY LESLEE Administration Glucagon 1 mg 05/29/24 13:54 Glucagon For Inj 1 Mg Vial IM PRN PRN Hypoglycemia Protocol Glucose 15 gm 05/29/24 13:54 Glucose Oral Gel 15 Gm Of Glucse In 37.5 Gm Tube PO PRN PRN Hypoglycemia Protocol Lactated Ringer's 1,000 mls @ 75 mls/hr 05/29/24 13:35 05/31/24 10:15 Lr - Lactated Ringers Iv IV CONT 75 mls/hr .[id number] LESLEE Infusion Dextrose 1,000 mls @ 100 mls/hr 05/29/24 13:54 Dextrose 5% 1,000 Ml IVPB PRN PRN Hypoglycemia Protocol Insulin Aspart 3 - 6 units 05/29/24 17:00 05/31/24 12:32 Insulin Aspart (*Bkc) 100 Units/Ml SUB-Q Not Given TIDWM [facility] Protocol Modafinil 200 mg 05/30/24 09:00 05/31/24 08:46 Modafinil (*Crx) 200 Mg Tablet PO 200 mg QAM LESLEE Administration Ondansetron HCl 4 mg 05/29/24 13:31 Ondansetron Inj 4 Mg/2 Ml Vial IV PUSH Q4H PRN Nausea Pantoprazole Sodium 40 mg 05/30/24 09:00 05/31/24 08:45 Pantoprazole 40 Mg Tablet PO 40 mg QAM LESLEE Administration Paroxetine HCl 60 mg 05/30/24 09:00 05/31/24 08:46 Paroxetine 20 Mg Tablet PO 60 mg DAILY LESLEE Administration Pramipexole Dihydrochloride 1.5 mg 05/30/24 09:00 05/31/24 08:45 Pramipexole 0.5 Mg Tablet PO 1.5 mg DAILY LESLEE Administration Rosuvastatin Calcium 10 mg 05/30/24 09:00 05/31/24 08:46 Rosuvastatin 10 Mg Tablet PO 10 mg DAILY LESLEE Administration Sitagliptin Phosphate 100 mg 05/30/24 09:00 05/31/24 08:46 Sitagliptin Phosphate 100 Mg Tablet PO 100 mg DAILY LESLEE Administration Radiology Results: ITS Impressions Abdomen/Pelvis CT 05/29/24 11:11 IMPRESSION: 1. Wall thickening of multiple loops of small bowel, consistent with enteritis versus interstitial edema. 2. Stones in the left ureter and left renal pelvis with mild left hydronephrosis and left internal ureteral stent in expected position. 3. Bilateral nonobstructing kidney stones. Labs Labs: Laboratory Results - last 24 hr 05/30/24 05/30/24 05/31/24 16:37 21:49 04:42 WBC 6.4 RBC 4.12 L Hgb 12.2 L Hct 37.4 L MCV 90.8 MCH 29.6 MCHC 32.6 RDW 12.2 Plt Count 136 L MPV 10.6 H Immature Gran % (Auto) 0.5 Neut % (Auto) 48.8 Lymph % (Auto) 32.8 [place] % (Auto) 5.2 Eos % (Auto) 12.5 H Baso % (Auto) 0.2 Lymph # (Auto) 2.09 [place] # (Auto) 0.3 Eos # (Auto) 0.8 H Baso # (Auto) 0.0 Abs Immat Gran (auto) 0.03 Absolute Neuts (auto) 3.1 Absolute Nucleated RBC 0.000 Nucleated RBC % 0.0 % Immature Plt Fraction 3.8 Sodium 140 Potassium 4.0 Chloride 107 Carbon Dioxide 29 Anion Gap 4 BUN 10 D Creatinine 0.84 Estim Creat Clear Calc 79 Estimated GFR > 60 Glucose 120 H POC Capillary Glucose 122 H 124 H Calcium 8.1 L Magnesium 1.7 Total Bilirubin 0.1 L AST 20 ALT 19 Alkaline Phosphatase 84 Total Protein 5.0 L Albumin 3.2 L 05/31/24 05/31/24 08:18 11:40 WBC RBC Hgb Hct MCV MCH MCHC RDW Plt Count MPV Immature Gran % (Auto) Neut % (Auto) Lymph % (Auto) [place] % (Auto) Eos % (Auto) Baso % (Auto) Lymph # (Auto) [place] # (Auto) Eos # (Auto) Baso # (Auto) Abs Immat Gran (auto) Absolute Neuts (auto) Absolute Nucleated RBC Nucleated RBC % % Immature Plt Fraction Sodium Potassium Chloride Carbon Dioxide Anion Gap BUN Creatinine Estim Creat Clear Calc Estimated GFR Glucose POC Capillary Glucose 92 104 Calcium Magnesium Total Bilirubin AST ALT Alkaline Phosphatase Total Protein Albumin
[2024-05-31 14:00] VITALS: BP 107/67; PULSE 67; RESP 18; TEMP 36.6; O2SAT 97
[2024-05-31] MEDS: LACTATED RINGERS 1,000 ML 75 ML IV CONT (16:00)
[2024-05-31 17:08] LABS: Glucose Point of Care 117 mg/dl (65-105)
[2024-05-31 21:25] LABS: Glucose Point of Care 150 mg/dl (65-105)
[2024-05-31 22:00] VITALS: BP 115/69; PULSE 62; RESP 18; TEMP 36.7; O2SAT 98
[2024-06-01] VITALS (11 sets, daily range): BP systolic 125–144; BP diastolic 67–86; PULSE 60–76; RESP 10–18; TEMP 36.2–36.8; O2SAT 93–99
[2024-06-01 04:40] LABS: Basophils Percent Auto 0.3 % (0.2-1.2); Eosinophils Absolute Auto 1.1 K/mm3 (0-0.3); Eosinophils Percent Auto 17.5 % (0-4.4); Hematocrit 39.8 % (42.0-52.0); Hemoglobin 13.5 g/dL (14.0-18.0); Immature Granulocyte Absolute 0.02 K/mm3 (0.00-0.031); Immature Granulocyte Percent A 0.3 % (0-0.5); Lymphocytes Absolute Auto 1.94 K/mm3 (0.9-3.2); Lymphocytes Percent Auto 30.8 % (18.3-44.2); Mean Corpuscular HGB Conc 33.9 g/dl (32-36); Mean Corpuscular Hemoglobin 30.1 pg (26-34); Mean Corpuscular Volume 88.6 fl (80-100); Mean Platelet Volume 10.2 fl (7.4-10.4); Monocytes Absolute Auto 0.3 K/mm3 (0.1-0.6); Monocytes Percent Auto 5.4 % (2.6-8.5); Neutrophils Absolute Auto 2.9 K/mm3 (1.3-6.7); Neutrophils Percent Auto 45.7 % (45.5-73.1); Platelet Count Result 147 k/mm3 (150-375); Red Blood Count 4.49 M/mm3 (4.6-6.20); Red Cell Distribution Width 12.2 % (11.5-14.5); White Blood Count 6.3 K/mm3 (4.5-10.0)
[2024-06-01 04:58] LABS: Alanine Aminotransferase 20 U/L (6-50); Albumin Level 3.8 g/dL (3.5-5.1); Alkaline Phosphatase 99 U/L (38-126); Anion Gap 8 mmol/L (4-12); Aspartate Amino Transferase 23 U/L (17-59); Bilirubin,Total 0.3 mg/dL (0.2-1.3); Blood Urea Nitrogen 9 mg/dL (9-20); Calcium 8.7 mg/dL (8.4-10.2); Carbon Dioxide 29 mmol/L (22-30); Chloride 103 mmol/L (98-107); Estimated CRCL calculation 87 ml/min; Estimated Glomerular Filt Rate > 60; Glucose 94 mg/dL (65-110); Magnesium 1.7 mg/dL (1.6-2.3); Sodium 140 mmol/L (137-145)
[2024-06-01] MEDS: LACTATED RINGERS 1,000 ML 30 ML IV CONT (06:10)
[2024-06-01 06:28] LABS: Glucose Point of Care 86 mg/dl (65-105)
--- NOTE | 2024-06-01 06:45 | P.PNAN_ITS ---
Anes - Initial Pre Proc Eval Procedure: Operation Date: 06/01/24 07:30 Proposed Procedures p Cystoscopy, Left Ureteroscopy, Possible Left Retrograde Pyelogram, Possible Right Stone Extraction, Possible Right Stent Placement, Possible Holmium Laser - Rafita Salguero MD Date/Time: 06/01/24 06:45 Surgeon: Daron Schultz MD Pre Op Diagnosis: gastroentritis,dehydration,preet Patient Data Age: 58 Gender: M Height: 1.73 m Weight: 78.1 kg Last Vital Signs Temp 36.4 C 06/01/24 06:10 Pulse 67 06/01/24 06:10 Resp 14 06/01/24 06:10 BP 129/80 06/01/24 06:10 Pulse Ox 99 06/01/24 06:10 O2 Del Method Room Air 06/01/24 06:10 Allergies Allergy/AdvReac Type Severity Reaction Status Date / Time aspartame Allergy Severe Hives Verified 05/29/24 14:58 loperamide (From Imodium A-D) Allergy Intermediate Hives Verified 05/29/24 14:46 propoxyphene Allergy Intermediate HIVES, Verified 05/29/24 14:46 ITCHING chloramphenicol Allergy Unknown AN Verified 05/29/24 14:46 INFANT ciprofloxacin AdvReac Severe HIVES Verified 05/29/24 14:46 Penicillins AdvReac Unknown UNKNOWN-WAS Verified 05/29/24 14:46 AN INFANT Home Medications ?Medication ?Instructions ?Recorded ?Confirmed ?Type cholecalciferol (vitamin D3) 25 25 mcg PO DAILY 09/01/20 05/29/24 History mcg (1,000 unit) capsule omega 7-bah-byu-fish oil 1,200 mg 3 cap PO DAILY 09/01/20 05/29/24 History (144 mg-216 mg) capsule paroxetine HCl 40 mg tablet (Paxil) 60 mg PO DAILY 09/26/20 05/29/24 History buspirone 15 mg tablet 15 mg PO BID #180 tabs 01/08/21 05/29/24 Rx epinephrine 0.3 mg/0.3 mL 0.3 mg (0.3 mL) IM ONCE PRN 01/12/22 05/29/24 Rx injection, auto-injector (EpiPen anaphylaxis #2 ea 2-Bib) ferrous sulfate 325 mg (65 mg 325 mg PO DAILY 12/24/22 05/29/24 History iron) tablet (FeroSul) blood sugar diagnostic (OneTouch #100 ea 01/13/23 05/29/24 Rx Verio test strips) blood-glucose meter (OneTouch #1 ea 01/13/23 05/29/24 Rx Verio Flex Meter) lancets 30 gauge (OneTouch Delica #100 ea 01/13/23 05/29/24 Rx Plus Lancet) rosuvastatin 10 mg tablet (Crestor) 10 mg PO DAILY #90 tabs 12/26/23 05/29/24 Rx omeprazole 20 mg capsule,delayed 20 mg PO DAILY #90 caps 01/03/24 05/29/24 Rx release metformin 1,000 mg tablet See Rx Instructions .Route 01/25/24 05/29/24 Rx .COMPLEX #180 tabs dextroamphetamine-amphetamine 30 30 mg PO BID #60 tabs 02/14/24 05/29/24 Rx mg tablet (Adderall) modafinil 200 mg tablet 200 mg PO QAM #30 tabs 03/03/24 05/29/24 Rx sitagliptin phosphate 100 mg 100 mg PO DAILY #90 tabs 03/06/24 05/29/24 Rx tablet (Januvia) darifenacin 7.5 mg tablet,extended 7.5 mg PO DAILY 03/28/24 05/29/24 History release 24 hr tirzepatide 2.5 mg/0.5 mL 2.5 mg (0.5 mL) subcut WEEKLY #6 mL 03/28/24 05/29/24 Rx subcutaneous pen injector (Yanira) pramipexole 1 mg tablet See Rx Instructions .Route 04/10/24 05/29/24 Rx .COMPLEX #135 tabs blood-glucose sensor (FreeStyle #13 ea 05/15/24 05/29/24 Rx Judiht 3 Plus Sensor device) oxybutynin chloride 5 mg tablet 5 mg PO BID PRN bladder spasms #30 05/18/24 05/29/24 Rx tabs Laboratory Tests 05/31/24 05/31/24 05/31/24 08:18 11:40 16:46 WBC RBC Hgb Hct MCV MCH MCHC RDW Plt Count MPV Immature Gran % (Auto) Neut % (Auto) Lymph % (Auto) [place] % (Auto) Eos % (Auto) Baso % (Auto) Lymph # (Auto) [place] # (Auto) Eos # (Auto) Baso # (Auto) Abs Immat Gran (auto) Absolute Neuts (auto) Absolute Nucleated RBC Nucleated RBC % Sodium Potassium Chloride Carbon Dioxide Anion Gap BUN Creatinine Estim Creat Clear Calc Estimated GFR Glucose POC Capillary Glucose 92 mg/dl 104 mg/dl 117 H mg/dl (65-105) (65-105) (65-105) Calcium Magnesium Total Bilirubin AST ALT Alkaline Phosphatase Total Protein Albumin 05/31/24 06/01/24 06/01/24 21:22 04:30 06:22 WBC 6.3 K/mm3 (4.5-10.0) RBC 4.49 L M/mm3 (4.6-6.20) Hgb 13.5 L g/dL (14.0-18.0) Hct 39.8 L % (42.0-52.0) MCV 88.6 fl (80-100) MCH 30.1 pg (26-34) MCHC 33.9 g/dl (32-36) RDW 12.2 % (11.5-14.5) Plt Count 147 L k/mm3 (150-375) MPV 10.2 fl (7.4-10.4) Immature Gran % (Auto) 0.3 % (0-0.5) Neut % (Auto) 45.7 % (45.5-73.1) Lymph % (Auto) 30.8 % (18.3-44.2) [place] % (Auto) 5.4 % (2.6-8.5) Eos % (Auto) 17.5 H % (0-4.4) Baso % (Auto) 0.3 % (0.2-1.2) Lymph # (Auto) 1.94 K/mm3 (0.9-3.2) [place] # (Auto) 0.3 K/mm3 (0.1-0.6) Eos # (Auto) 1.1 H K/mm3 (0-0.3) Baso # (Auto) 0.0 K/mm3 (0.0-0.1) Abs Immat Gran (auto) 0.02 K/mm3 (0.00-0.031) Absolute Neuts (auto) 2.9 K/mm3 (1.3-6.7) Absolute Nucleated RBC 0.000 K/mm3 (0.0-0.012) Nucleated RBC % 0.0 % (0.0-0.2) Sodium 140 mmol/L (137-145) Potassium 4.0 mmol/L (3.4-5.0) Chloride 103 mmol/L (98-107) Carbon Dioxide 29 mmol/L (22-30) Anion Gap 8 mmol/L (4-12) BUN 9 mg/dL (9-20) Creatinine 0.76 mg/dL (0.7-1.3) Estim Creat Clear Calc 87 ml/min Estimated GFR > 60 (59 - ) Glucose 94 mg/dL (65-110) POC Capillary Glucose 150 H mg/dl 86 mg/dl (65-105) (65-105) Calcium 8.7 mg/dL (8.4-10.2) Magnesium 1.7 mg/dL (1.6-2.3) Total Bilirubin 0.3 mg/dL (0.2-1.3) AST 23 U/L (17-59) ALT 20 U/L (6-50) Alkaline Phosphatase 99 U/L (38-126) Total Protein 6.0 L g/dL (6.3-8.2) Albumin 3.8 g/dL (3.5-5.1) Patient hx anesthesia problems: none Family hx anesthesia problems: none Results Review: All pre-operative results and documents have been reviewed as part of the pre- operative evaluation. [facility] Past Medical History Medical History COVID-19 Family history of malignant neoplasm of digestive organs Adenomatous polyp of colon Trigger finger of right thumb Nephrolithiasis Restless leg syndrome Obsessive compulsive disorder Type 2 diabetes mellitus Narcolepsy Blood type AB- Mixed hyperlipidemia Arthritis of carpometacarpal (CMC) joint of left thumb Family history of malignant neoplasm of prostate 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 Mitchell lives at home with his and son. He is independent in his daily activities. He is retired from working with a [employer]. His primary care provider is Dr. Lee. He would like his , Brooke, to be his surrogate decision maker and would like to be a full code. Smoking status: Never smoker Second hand tobacco smoke exposure: No Alcohol intake: never Substance use: never Substance use type: does not use Do You Feel Safe in your Home?: Yes Lack of Transportation: No Lack of Food: Never True Current Housing: I Have Housing Concerned About Future Housing: No Difficulty Paying Gas/Electric Bills: No Difficulty Paying for Meds: No Currently Unemployed: No Education: Bachelor's Degree Difficulty w/ Childcare or Family Care: No Living arrangements: with family Additional living arrangements comments: Gender identity (if verbalized by the patient): Male Spiritual care concerns: No Anes - Eval Final PreProcedure Day of Procedure 06/01/24 06:45 Patient weight: overweight Heart: regular rate and rhythm Lungs: clear to auscultation Airway: Mallampati scale class 1 Neurological: alert and oriented Last oral intake: >/= 8 hours ASA classification: III Emergent: no Anesthetic plan: proceed Anesthesia type and monitoring: general LMA and standard monitoring Results Review: All pre-operative results and documents have been reviewed as part of the pre- operative evaluation. Informed Consent: The patient's anesthetic plan and its attendant risks and benefits were discussed with the patient/family/POA. Questions were solicited and answers provided to the satisfaction of the patient/family/POA.
--- NOTE | 2024-06-01 07:21 | WPDHPUPDATE1 ---
History and Physical Update Update Date/Time: 06/01/24 07:21 History and Physical has been reviewed, including an updated exam of the patient. There are NO changes in the patient's condition. Risks, benefits, and alternatives have been discussed and questions answered. Patient agrees to proceed with procedure.
[2024-06-01] MEDS: ceFAZolin 2 GM/D5W 50 ML 2 GM/50 ML BAG IVPB (07:29)
[2024-06-01] MEDS: LIDOCAINE 2% GEL UROJET 10 ML PKG MUCOUS MEM (07:43)
--- NOTE | 2024-06-01 08:19 | P.OP_ITS ---
Procedure Note - Detailed Date of Procedure 06/01/24 Pre-op Diagnosis Left renal and ureteral calculi Post-op Diagnosis Same Procedure Performed Cystoscopy, left retrograde, left ureteroscopy with holmium laser, stone extraction, left stent exchange 4.8 [place] contour Surgeon Rafita Salguero MD Anesthesia General Description of Procedure Patient was taken to the operative suite correctly identified. Once anesthesia was obtained was placed in dorsal lithotomy position and prepped and draped usual sterile fashion. Nineteen [place] scope was inserted the bladder. The prior stent was grasped brought out to the meatus. Sensor wire was inserted. Rigid ureteral scope was inserted in a couple of ureteral stones were seen. The large was retrieved and sent for analysis wall. The other 1 flushed out. A ureteral access sheath was then placed. Patient had some stone fragments in the upper pole calyx and also somewhat of a lateral 1. Using a 200 micron fiber we dusted the stones. We flushed the dust out. There appeared to be good fragmentation. Pyelogram was then performed. An 4.8 [place] contour stent was then placed with the proximal end coiled in the renal pelvis and the distal in the bladder. Bladder was drained. 2% viscous lidocaine was inserted into the urethra the patient is taken recovery stable condition. He will follow-up in a week's time for stent. This completes dictation. Please send a copy of op note to my office. Estimated Blood Loss 0 Urine Output 2 Drains Yes Packing No Pathology Yes Complications No immediate complications Condition Stable Disposition PACU
[2024-06-01 08:33] LABS: Glucose Point of Care 92 mg/dl (65-105)
[2024-06-01] MEDS: modafiniL (*CRX) 200 MG TABLET PO (10:09)
[2024-06-01] MEDS: PARoxetine 20 MG TABLET 60 MG PO (10:09)
[2024-06-01] MEDS: FERROUS SULFATE 325 MG TABLET DR PO (10:09)
[2024-06-01] MEDS: busPIRone HCL 5 MG TABLET 15 MG PO (10:09)
[2024-06-01] MEDS: PANTOPRAZOLE 40 MG TABLET PO (10:09)
[2024-06-01] MEDS: ROSUVASTATIN 10 MG TABLET PO (10:09)
[2024-06-01] MEDS: PRAMIPEXOLE 0.5 MG TABLET 1.5 MG PO (10:09)
[2024-06-01] MEDS: SITagliptin PHOSPHATE 100 MG TABLET PO (10:10)
[2024-06-01 11:56] LABS: Glucose Point of Care 203 mg/dl (65-105)
--- NOTE | 2024-06-01 12:02 | P.DS_ITS ---
DS: Admitting Diagnosis Discharge Date 06/01/2024 Admitting Diagnosis Flank pain DS: Discharge Diagnosis Discharge Diagnosis (1) Left renal stone: Code(s): N20.0 - Calculus of kidney Status: Acute (2) Calculus of ureter: Code(s): N20.1 - Calculus of ureter Status: Acute (3) Nausea vomiting and diarrhea: Code(s): R11.2 - Nausea with vomiting, unspecified; R19.7 - Diarrhea, unspecified Status: Acute (4) DENA (acute kidney injury): Code(s): N17.9 - Acute kidney failure, unspecified Status: Acute (5) Hypotension: Code(s): I95.9 - Hypotension, unspecified Status: Acute DS: Summary Hospital Course Hospital Course: Initial VS at presentation: 98? F, HR 111, R 21, 110/96, and 100% on RA. ED workup showed: WBC 14.2, hemoglobin 18.8 (previously 13.3 on 05/06/2024), creatinine 1.37 and GFR 53 (previously 0.7 and GFR >60 on 05/06/2024), glucose 219, and UA was like prone/cloudy/3+ protein/trace glucose and ketones/3+ blood/1+ leuks. CT of the abdomen/pelvis showed wall thickening in multiple loops of small bowel consistent with enteritis versus interstitial edema, stones in the left ureter and left renal pelvis with mild left hydronephrosis and left internal ureteral stent in expected position, bilateral nonobstructing kidney stones. Patient responded well to IV fluids and was transitioned to food. Patient tolerated food well. Creatinine improved to 0.76. Urine culture negative. Dr. Salguero on performed Cystoscopy, left retrograde, left ureteroscopy with holmium laser, stone extraction, left stent exchange 4.8 [place] contour. Patient to follow up outpatient in a week to have stent removed. Status at Discharge Functional status at discharge: independent ambulation Overall status at discharge: patient is progressing back to baseline Time Spent with Patient Time attestation: Total time spent providing and/or coordinating discharge services: Time spent: Greater than 30 minutes Exam Const: General: comfortable and no acute distress Resp: Effort & Inspection: normal respiratory effort Auscultation: clear to auscultation bilaterally Cardio: Rate: regular rate Rhythm: regular rhythm GI: GI Palp: Yes Soft to palpation Auscultation: normal bowel sounds Neuro: General: gait normal Extrem: General: no pedal edema Psych: Mental Status: mental status grossly normal Affect: normal affect DS: Data Data Completed and Pending Pending studies at discharge: Pending at discharge 06/01/24 08:14 Surgical [PTH] Routine Labs on day of discharge: Labs from last 24 hours 06/01/24 06/01/24 06/01/24 11:54 08:31 06:22 WBC RBC Hgb Hct MCV MCH MCHC RDW Plt Count MPV Immature Gran % (Auto) Neut % (Auto) Lymph % (Auto) [place] % (Auto) Eos % (Auto) Baso % (Auto) Lymph # (Auto) [place] # (Auto) Eos # (Auto) Baso # (Auto) Abs Immat Gran (auto) Absolute Neuts (auto) Absolute Nucleated RBC Nucleated RBC % Sodium Potassium Chloride Carbon Dioxide Anion Gap BUN Creatinine Estim Creat Clear Calc Estimated GFR Glucose POC Capillary Glucose 203 H 92 86 Calcium Magnesium Total Bilirubin AST ALT Alkaline Phosphatase Total Protein Albumin 06/01/24 05/31/24 05/31/24 04:30 21:22 16:46 WBC 6.3 RBC 4.49 L Hgb 13.5 L Hct 39.8 L MCV 88.6 MCH 30.1 MCHC 33.9 RDW 12.2 Plt Count 147 L MPV 10.2 Immature Gran % (Auto) 0.3 Neut % (Auto) 45.7 Lymph % (Auto) 30.8 [place] % (Auto) 5.4 Eos % (Auto) 17.5 H Baso % (Auto) 0.3 Lymph # (Auto) 1.94 [place] # (Auto) 0.3 Eos # (Auto) 1.1 H Baso # (Auto) 0.0 Abs Immat Gran (auto) 0.02 Absolute Neuts (auto) 2.9 Absolute Nucleated RBC 0.000 Nucleated RBC % 0.0 Sodium 140 Potassium 4.0 Chloride 103 Carbon Dioxide 29 Anion Gap 8 BUN 9 Creatinine 0.76 Estim Creat Clear Calc 87 Estimated GFR > 60 Glucose 94 POC Capillary Glucose 150 H 117 H Calcium 8.7 Magnesium 1.7 Total Bilirubin 0.3 AST 23 ALT 20 Alkaline Phosphatase 99 Total Protein 6.0 L Albumin 3.8 Discharge Plan Discharge Attending physician on discharge: Jake Jaquez Consulting providers: Rafita Salguero Discharging Clinician: Deja Camacho Anticipated Discharge Date/Time: 06/01/24 13:00 Patient Disposition: Home, Self-Care Activity: may shower and as tolerated Diet: diabetic Discharge Instructions: * Follow up with Urologist in one week for stent removal. * Report to provider any fevers >101, difficulty urinating, increased blood in urine, nausea, or vomiting. * Drink water to hydrate and flush kidneys. Thank you for entrusting [facility] with your healthcare! Patient Instructions: Antibiotic Form, Kidney Stones (DC) Patient Language: Kyr[place]z Stand Alone Forms: General Discharge Information Follow-up/Referrals: Rafita Salguero MD [Physician] - 1 Week Giorgio Lee MD [Primary Care Provider] - 1 Week Discharge Medications: Continued omega 4-kfl-nxk-fish oil 1,200 (144-216) mg capsule 3 cap PO DAILY cholecalciferol (vitamin D3) 25 mcg (1,000 unit) capsule 25 mcg PO DAILY ferrous sulfate [FeroSul] 325 mg (65 mg iron) tablet 325 mg PO DAILY darifenacin 7.5 mg tablet extended release 24 hr 7.5 mg PO DAILY Mounjaro 2.5 mg/0.5 mL pen injector 2.5 mg subcut WEEKLY Qty: 6 0RF Rx Instructions: for 4 weeks paroxetine HCl [Paxil] 40 mg tablet 60 mg PO DAILY Rx Instructions: 1.5 tablets PO daily; oxybutynin chloride 5 mg tablet 5 mg PO BID PRN (Reason: bladder spasms) Qty: 30 0RF Rx Instructions: Take as needed for bladder spasms buspirone 15 mg tablet 15 mg PO BID Qty: 180 3RF epinephrine [EpiPen 2-Bib] 0.3 mg/0.3 mL auto-injector 0.3 mg IM ONCE PRN (Reason: anaphylaxis) Qty: 2 2RF Rx Instructions: as a single dose (DME) blood-glucose meter [OneTouch Verio Flex meter] Misc See Rx Instructions .Route Qty: 1 0RF Rx Instructions: Use to check BS once daily (DME) OneTouch Verio test strips Strip See Rx Instructions .Route Qty: 100 2RF Rx Instructions: Use to check BS once daily (DME) lancets [OneTouch Delica Plus Lancet] 30 gauge misc See Rx Instructions .Route Qty: 100 2RF Rx Instructions: Use to check BS once daily rosuvastatin [Crestor] 10 mg tablet 10 mg PO DAILY Qty: 90 1RF omeprazole 20 mg capsule,delayed release(DR/EC) 20 mg PO DAILY Qty: 90 1RF metformin 1,000 mg tablet See Rx Instructions .ROUTE .COMPLEX Qty: 180 1RF Dose Instruction: TAKE 1 TABLET TWICE A DAY Rx Instructions: TAKE 1 TABLET TWICE A DAY dextroamphetamine-amphetamine [Adderall] 30 mg tablet 30 mg PO BID Qty: 60 0RF Rx Instructions: Fill in February modafinil 200 mg tablet 200 mg PO QAM Qty: 30 3RF Januvia 100 mg tablet 100 mg PO DAILY Qty: 90 1RF pramipexole 1 mg tablet See Rx Instructions .ROUTE .COMPLEX Qty: 135 1RF Dose Instruction: TAKE ONE AND ONE-HALF TABLETS DAILY Rx Instructions: TAKE ONE AND ONE-HALF TABLETS DAILY (DME) FreeStyle [place] 3 Plus Sensor Device See Rx Instructions .Route Qty: 13 3RF Rx Instructions: As directed Date of admission: 05/30/24 16:12 Primary Care Provider: Giorgio Lee Admitting Provider: Daron Schultz Attending physician on admission: Daron Schultz Condition: Stable
--- NOTE | 2024-06-02 16:28 | WPDANESPN ---
Anes - Prog Note Post-Op Date/Time: 06/02/24 16:28 Cardiovascular status: normal Respiratory status: normal Airway patency: baseline Mental status: baseline Post-Op hydration status: normal Vital Signs: Last Vital Signs Temp 36.6 C 06/01/24 10:45 Pulse 76 06/01/24 10:45 Resp 18 06/01/24 10:45 BP 128/80 06/01/24 10:45 Pulse Ox 96 06/01/24 10:45 O2 Del Method Room Air 06/01/24 09:30 O2 Flow Rate 8 06/01/24 08:45 Pain Score (VAS): 1 Laboratory Tests 06/01/24 04:30 06/01/24 04:30 Post-procedural complaints: none Patient Feedback: Patient satisfied with anesthetic care.
== END 2024-06-01 13:15 | disposition home or self-care (01) | DRG 661 ==
LOC: ANHED 11:15 → ANH2MED 16:32
PROVIDERS: Student in an Organized Health Care Education/Training Program; Urology; Admitting Provider Hospitalist; Emergency Provider Student in an Organized Health Care Education/Training Program; PCP Family Medicine; Visit Provider Nurse Practitioner Family
PROC: 0T778DZ Dilation of Left Ureter with Intraluminal Device, Via Natural or Artificial Opening Endoscopic (ICD-10-PCS; CPT 52352; principal; 2024-06-01 07:30)
DX: N13.2 Hydronephrosis with renal and ureteral calculous obstruction (principal); N17.9 Acute kidney failure, unspecified; E86.0 Dehydration; E11.9 Type 2 diabetes mellitus without complications; E78.2 Mixed hyperlipidemia; R11.2 Nausea with vomiting, unspecified; R19.7 Diarrhea, unspecified; G25.81 Restless legs syndrome; G47.419 Narcolepsy without cataplexy; F42.9 Obsessive-compulsive disorder, unspecified; Z86.0101 Personal history of adenomatous and serrated colon polyps
CPT/HCPCS: 36415; 74176; 74420; 80053; 81001; 82365; 82948; 83690; 83735; 85025; 85055; 87086; 88300; 96361; 96372; 96374; 96375; 99285; A9270; C1758; C1769; C2617; G0378; J0690; J1100; J1885; J2003; J2250; J2405; J2704; J3010; J3475; J7030; J7120; Q9966

== ENCOUNTER 2024-06-13 17:30 | Emergency (ER) | payer OTHER, SELFPAY ==
--- NOTE | ~2024-06-13 | CT_ITS ---
CT abdomen pelvis w con Ordering provider: Kenia Goel MD History: 58 years Male with . DIARRHEA . Comparison: May 29, 2024 Technique: CT abdomen and pelvis with IV and without oral contrast. Automated exposure control and it erative reconstruction technique were employed. The dose-length product was 776.70 mGy-cm. 100 mL Omn ipaque 350 was given IV. Findings: VISUALIZED LOWER CHEST: Dependent atelectatic changes. UPPER ABDOMINAL ORGANS: Liver: Normal. Gallbladder: Normal. Spleen: Normal. Stomach/duodenum: Normal. Pancreas: Normal. Adrenals: Normal. Kidneys: Multiple left kidney stones. Small cysts in the left kidney upper pole. Left hydronephrotic changes with no definite ureteric stones. Possibility of a stenosis in the left upper ureter is not e xcluded. Further evaluation advised. Stones in the right kidney. No Hydronephrotic changes in the right kidney. PELVIC ORGANS: The bladder shows thickened wall. Evaluation for cystitis or infiltrative process is a dvised BOWEL AND MESENTERY: Colon: No evidence of diverticulitis. Normal appendix. Small Bowel: Normal. No obstruction. Peritoneum/mesentery: No free air or free fluid. No mesenteric lymphadenopathy. Mesenteric panniculit is is seen in the mid abdomen. RETROPERITONEUM: Mild atheromatous disease of the abdominal aorta. No retroperitoneal lymphadenopat hy. MUSCULOSKELETAL: Superficial soft tissues: The superficial soft tissues are normal. Bones: Age appropriate degenerative changes of the spine. IMPRESSION: 1. Bilateral kidney stones. 2. Left hydronephrotic changes with possible stenosis in the left upper ureter. 3. No evidence of appendicitis, diverticulitis or intestinal obstruction. 4. Mesenteric panniculitis in the mid abdomen. 5. Thickened wall of the urinary bladder. Further evaluation advised. Reviewed, dictated and finalized at location A. IMPRESSION: 1. Bilateral kidney stones. 2. Left hydronephrotic changes with possible stenosis in the left upper ureter . 3. No evidence of appendicitis, diverticulitis or intestinal obstruction. 4. Mesenteric panniculitis in the mid abdomen. 5. Thickened wall of the urinary bladder. Further evaluation advised.
--- NOTE | ~2024-06-13 | XR_ITS ---
XR abdomen/kub 1V Ordering provider: Kenia Goel MD History: . DIARRHEA/CONSTIPATION . Comparison: May 18, 2024. FINDINGS: BOWEL: Nonobstructive bowel gas pattern. ORGANOMEGALY: None. SIGNIFICANT PATHOLOGIC CALCIFICATIONS: None. Left double-J stent is removed in the interval. OTHER: No free air is seen under the diaphragm. IMPRESSION: NO ACUTE ABDOMINAL FINDINGS. Reviewed, dictated and finalized at location A.
--- NOTE | 2024-06-13 17:45 | ED_ITS ---
HPI - Allergic Reaction General Chief complaint: Allergic Reaction Stated complaint: Allergic reaction Time Seen by Provider: 06/13/24 17:44 Source: patient and family Mode of arrival: EMS Limitations: no limitations History of Present Illness HPI narrative: PATIENT REPORT HAVING ITCHING HIVES STARTED PRIOR TO ARRIVAL TO THE EMERGENCY ROOM, PATIENT INJECTED HIMSELF AT HOME WITH EPINEPHRINE, IN THE AMBULANCE RECEIVED BENADRYL, ON ARRIVAL TO THE ED HAVING NO ITCHING. HISTORY OF ALLERGIES TO VARIOUS STAFF. RIGHT AWAY PATIENT BEEN HAVING DIARRHEA FOR THE LAST 7 DAYS ON AVERAGE 20 TIMES A DAY, STARTED HAVING VOMITING TODAY 3-4 TIMES SO FAR. HE DENIES ABDOMINAL PAIN. PATIENT IS TELLING ME THAT HE HAD DIARRHEA AND VOMITING 2 WEEKS AGO LASTED FOR 2 DAYS THEN RESOLVED. HE DENIES ANY FEVER, CHILLS, SICK CONTACT OR ABDOMINAL PAIN. NO RECENT ANTIBIOTIC INTAKE. HISTORY OF DIABETES HYPERTENSION HYPERLIPIDEMIA CHOLECYSTECTOMY OCD. PATIENT DOES NOT SMOKE OR DRINK OR USE DRUGS Related Data Home Medications ?Medication ?Instructions ?Recorded ?Confirmed ?Last Taken ?Type paroxetine HCl 40 mg tablet (Paxil) 60 mg PO DAILY 09/26/20 05/29/24 05/17/24 History darifenacin 7.5 mg tablet,extended 7.5 mg PO DAILY 03/28/24 05/29/24 05/17/24 History release 24 hr Allergies Allergy/AdvReac Type Severity Reaction Status Date / Time aspartame Allergy Severe Hives Verified 06/11/24 09:34 loperamide (From Imodium A-D) Allergy Intermediate Hives Verified 06/11/24 09:34 propoxyphene Allergy Intermediate HIVES, Verified 06/11/24 09:34 ITCHING chloramphenicol Allergy Unknown AN Verified 06/11/24 09:34 ciprofloxacin AdvReac Severe HIVES Verified 06/11/24 09:34 Penicillins AdvReac Unknown UNKNOWN-WAS Verified 06/11/24 09:34 AN Review of Systems 2 Review of Systems: All systems reviewed & are unremarkable except as noted in HPI and below PMFSH Past Medical History Medical History COVID-19 Family history of malignant neoplasm of digestive organs Adenomatous polyp of colon Trigger finger of right thumb Nephrolithiasis Restless leg syndrome Obsessive compulsive disorder Type 2 diabetes mellitus Narcolepsy Blood type AB- Mixed hyperlipidemia Arthritis of carpometacarpal (CMC) joint of left thumb Family history of malignant neoplasm of prostate 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 Mitchell lives at home with his and son. He is independent in his daily activities. He is retired from working with a [employer]. His primary care provider is Dr. Lee. He would like his , Brooke, to be his surrogate decision maker and would like to be a full code. Smoking status: Never smoker Second hand tobacco smoke exposure: No Alcohol intake: never Substance use: never Substance use type: does not use Do You Feel Safe in your Home?: Yes Lack of Transportation: No Lack of Food: Never True Current Housing: I Have Housing Concerned About Future Housing: No Difficulty Paying Gas/Electric Bills: No Difficulty Paying for Meds: No Currently Unemployed: No Education: Bachelor's Degree Difficulty w/ Childcare or Family Care: No Living arrangements: with family Additional living arrangements comments: Gender identity (if verbalized by the patient): Male Spiritual care concerns: No Exam 2 Narrative: GENERAL APPEARANCE: WELL-DEVELOPED, WELL-NOURISHED SKIN: NORMAL COLOR HEAD: NORMOCEPHALIC, NONTRAUMATIC EYES: CLEAR CONJUNCTIVA ENT: OROPHARYNX NORMAL, EARS NORMAL, NOSE NORMAL NECK: SUPPLE, NONTENDER CHEST AND RESPIRATORY: AIRWAY PATENT, NO RESPIRATORY DISTRESS, NO ACCESSORY MUSCLE USE HEART: REGULAR RATE/RHYTHM ABDOMEN: SOFT, NONTENDER, NO ORGANOMEGALY, HYPERACTIVE BOWEL SOUNDS VASCULAR: NORMAL PERIPHERAL PULSES, NORMAL CAPILLARY REFILL. MUSCULOSKELETAL: NORMAL RANGE OF MOTION, NONTENDER BACK NEUROLOGIC: ALERT AND ORIENTED ?3, BRUSHING OPERATOR IS NORMAL TESTED, NO GROSS MOTOR DEFICIT Course Vital Signs Vital signs: Vital Signs Temperature 36.4 C 06/13/24 17:46 Pulse Rate 124 H 06/13/24 17:46 Respiratory Rate 17 06/13/24 17:46 Blood Pressure 105/91 H 06/13/24 17:46 Pulse Oximetry 97 06/13/24 17:46 Oxygen Delivery Room Air 06/13/24 17:46 Temperature 36.4 C 06/13/24 17:46 Pulse Rate 115 H 06/13/24 18:55 Respiratory Rate 14 06/13/24 18:55 Blood Pressure 130/97 H 06/13/24 18:55 Pulse Oximetry 94 06/13/24 18:55 Oxygen Delivery Room Air 06/13/24 18:55 MDM - Allergic Reaction MDM Narrative Medical decision making narrative: PATIENT CAME TO THE ED WITH ALLERGIC REACTION TO UNKNOWN REASON, GOT BETTER AFTER EPINEPHRINE SHOT. PATIENT STARTED COMPLAINING OF DIARRHEA FOR 1 WEEK AND VOMITING TODAY. VITAL SIGNS SHOWING BLOOD PRESSURE 105/91, HEART RATE 124 OTHERWISE WITHIN NORMAL LIMIT PHYSICAL EXAMINATION SHOWING HIVES ON THE ABDOMEN AND HANDS BILATERALLY, HYPERACTIVE BOWEL SOUNDS OTHERWISE INSIGNIFICANT DIFFERENTIAL DIAGNOSIS INCLUDE ALLERGIC REACTION, ELECTROLYTE IMBALANCE, DEHYDRATION, C DIFF. BLOOD WORKUP TODAY INCLUDES CBC, CMP SHOWED STOOL ANALYSIS, C DIFF KUB PATIENT WAS SIGNED TO THE KATERIN RUEDA AT SHIFT CHANGE Differential Diagnosis Differential diagnosis: Likely other ( ABOVE) Lab Data 06/13/24 17:56 06/13/24 17:56 Labs: Lab Results 06/13/24 Range/Units 17:56 WBC 18.6 H (4.5-10.0) K/mm3 RBC 5.75 (4.6-6.20) M/mm3 Hgb 17.0 D (14.0-18.0) g/dL Hct 51.2 (42.0-52.0) % MCV 89.0 (80-100) fl MCH 29.6 (26-34) pg MCHC 33.2 (32-36) g/dl RDW 13.1 (11.5-14.5) % Plt Count 222 D (150-375) k/mm3 MPV 10.5 H (7.4-10.4) fl Immature Gran % (Auto) Not Reportable Neut % (Auto) Not Reportable Lymph % (Auto) Not Reportable [place] % (Auto) Not Reportable Eos % (Auto) Not Reportable Baso % (Auto) Not Reportable Lymph # (Auto) Not Reportable [place] # (Auto) Not Reportable Eos # (Auto) Not Reportable Baso # (Auto) Not Reportable Abs Immat Gran (auto) Not Reportable Absolute Neuts (auto) Not Reportable Absolute Nucleated RBC Not Reportable Total Counted 100 Neutrophils % (Manual) 75 H (46-73) % Band Neutrophils % 1 (0-6) % Lymphocytes % (Manual) 20.0 (18-44) % Monocytes % (Manual) 3 (3-9) % Eosinophils % (Manual) 1 (0-4) % Nucleated RBC % Not Reportable Abs Neuts (Manual) 14.13 H (1.3-6.7) K/mm3 Abs Lymphs (Manual) 3.72 (1.1-4.5) K/mm3 Abs Monocytes (Manual) 0.55 (0.1-0.90) K/mm3 Absolute Eos (Manual) 0.18 (0.02-0.50) K/mm3 Atypical Lymphocytes Present Platelet Estimate Adequate (Adequate) Schistocytes None seen Sodium 140 (137-145) mmol/L Potassium 3.1 L (3.4-5.0) mmol/L Chloride 102 (98-107) mmol/L Carbon Dioxide 21 L (22-30) mmol/L Anion Gap 17 H (4-12) mmol/L BUN 15 D (9-20) mg/dL Creatinine 1.18 (0.7-1.3) mg/dL Estim Creat Clear Calc 57 ml/min Estimated GFR > 60 (59 - ) Glucose 207 H (65-110) mg/dL Calcium 8.7 (8.4-10.2) mg/dL Total Bilirubin 0.6 (0.2-1.3) mg/dL AST 23 (17-59) U/L ALT 24 (6-50) U/L Alkaline Phosphatase 162 H (38-126) U/L Total Protein 7.0 (6.3-8.2) g/dL Albumin 4.2 (3.5-5.1) g/dL Discharge Plan Discharge Clinical Impression: Diarrhea, Acute hypokalemia Patient Language: Niuean Prescriptions: No Action darifenacin 7.5 mg tablet extended release 24 hr 7.5 mg PO DAILY Mounjaro 2.5 mg/0.5 mL pen injector 2.5 mg subcut WEEKLY Qty: 6 0RF Rx Instructions: for 4 weeks paroxetine HCl [Paxil] 40 mg tablet 60 mg PO DAILY Rx Instructions: 1.5 tablets PO daily; buspirone 15 mg tablet 15 mg PO BID Qty: 180 3RF epinephrine [EpiPen 2-Bib] 0.3 mg/0.3 mL auto-injector 0.3 mg IM ONCE PRN (Reason: anaphylaxis) Qty: 2 2RF Rx Instructions: as a single dose (DME) blood-glucose meter [OneTouch Verio Flex meter] Misc See Rx Instructions .Route Qty: 1 0RF Rx Instructions: Use to check BS once daily (DME) OneTouch Verio test strips Strip See Rx Instructions .Route Qty: 100 2RF Rx Instructions: Use to check BS once daily (DME) lancets [OneTouch Delica Plus Lancet] 30 gauge misc See Rx Instructions .Route Qty: 100 2RF Rx Instructions: Use to check BS once daily rosuvastatin [Crestor] 10 mg tablet 10 mg PO DAILY Qty: 90 1RF omeprazole 20 mg capsule,delayed release(DR/EC) 20 mg PO DAILY Qty: 90 1RF metformin 1,000 mg tablet See Rx Instructions .ROUTE .COMPLEX Qty: 180 1RF Dose Instruction: TAKE 1 TABLET TWICE A DAY Rx Instructions: TAKE 1 TABLET TWICE A DAY dextroamphetamine-amphetamine [Adderall] 30 mg tablet 30 mg PO BID Qty: 60 0RF Rx Instructions: Fill in February modafinil 200 mg tablet 200 mg PO QAM Qty: 30 3RF Januvia 100 mg tablet 100 mg PO DAILY Qty: 90 1RF pramipexole 1 mg tablet See Rx Instructions .ROUTE .COMPLEX Qty: 135 1RF Dose Instruction: TAKE ONE AND ONE-HALF TABLETS DAILY Rx Instructions: TAKE ONE AND ONE-HALF TABLETS DAILY (DME) FreeStyle Judith 3 Plus Sensor Device See Rx Instructions .Route Qty: 13 3RF Rx Instructions: As directed Follow-up/Referrals: Giorgio Lee MD [Primary Care Provider] -
[2024-06-13 17:46] VITALS: BP 105/91; PULSE 124; RESP 17; TEMP 36.4; O2SAT 97
[2024-06-13 18:02] LABS: Hematocrit 51.2 % (42.0-52.0); Mean Corpuscular HGB Conc 33.2 g/dl (32-36); Mean Corpuscular Hemoglobin 29.6 pg (26-34); Mean Platelet Volume 10.5 fl (7.4-10.4); Platelet Count Result 222 k/mm3 (150-375); Red Blood Count 5.75 M/mm3 (4.6-6.20); Red Cell Distribution Width 13.1 % (11.5-14.5); White Blood Count 18.6 K/mm3 (4.5-10.0)
[2024-06-13 18:12] LABS: Alanine Aminotransferase 24 U/L (6-50); Albumin Level 4.2 g/dL (3.5-5.1); Alkaline Phosphatase 162 U/L (38-126); Anion Gap 17 mmol/L (4-12); Aspartate Amino Transferase 23 U/L (17-59); Bilirubin,Total 0.6 mg/dL (0.2-1.3); Blood Urea Nitrogen 15 mg/dL (9-20); Calcium 8.7 mg/dL (8.4-10.2); Carbon Dioxide 21 mmol/L (22-30); Chloride 102 mmol/L (98-107); Estimated CRCL calculation 57 ml/min; Estimated Glomerular Filt Rate > 60; Glucose 207 mg/dL (65-110); Potassium 3.1 mmol/L (3.4-5.0); Sodium 140 mmol/L (137-145)
[2024-06-13 18:22] LABS: Band Neutrophils Percent 1 % (0-6); Eosinophils Absolute Manual 0.18 K/mm3 (0.02-0.50); Eosinophils Percent Manual 1 % (0-4); Lymphocytes Absolute Manual 3.72 K/mm3 (1.1-4.5); Monocytes Absolute Manual 0.55 K/mm3 (0.1-0.90); Monocytes Percent Manual 3 % (3-9); Neutrophils Absolute Manual 14.13 K/mm3 (1.3-6.7); Neutrophils Percent Manual 75 % (46-73); Platelet Estimate Adequate (Adequate); Total Cells Counted 100
[2024-06-13 18:23] LABS: Atypical Lymphocytes Present; Schistocytes None Seen
[2024-06-13] MEDS: SODIUM CHLORIDE 0.9% IV 2,000 ML 999 ML IV CONT (18:47)
[2024-06-13] MEDS: ONDANSETRON INJ 4 MG/2 ML VIAL 8 MG IV PUSH (18:47)
--- OUTSIDE RECORDS SUMMARY | 2024-06-13 18:49 | XMS_ITS | Clinical Summary ---
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 Gender Identity Male 01/13/2019 7:57 PM DESKIDDING MACHINE OPERATOR Sexual Orientation Straight 01/13/2019 7: 57 PM DESKIDDING MACHINE OPERATOR Obstetrics History Last Filed Vital [...] LIPID PANEL Routine 04/07/2013 8:4 5 PM DESKIDDING MACHINE OPERATOR from Last 3 Months or Most Recently Relevant to Health Maintenance Results * COLONOSCOPY (07/28/2018 9:02 AM CDT) Anatomical Region Laterality Modality Other Narrative Procedure Note Ramo Meza MD - 07/28/2018 9:02 AM CDT [facility] Patient Name: Chuy Mitchell Procedure Date: 07/28/2018 9:02 AM Date of : 1965 Admit Type: Outpatient Age: 52 Gender: Male Attending MD: Ramo Meza M.D. Room: [facility] ENDOSCOPY ROOM 1 Note Status: Finalized Patient [...] in 3 - 5 years [facility]. - Continue present medications. Medicines: Monitored [...] passed under direct vision.The Pediatric Colonoscope [id number] was introduced through the anus and advanced [...] 9:02 AM Procedure Code(s): --- Professional --- 51573, Colonoscopy, flexible; with biopsy, single or multiple Diagnosis Code(s): --- Professional --- Z80.0, Family history of malignant neoplasm of digestive organs Z86.010, Personal history of colonic polyps K64.8, Other hemorrhoids D12.5, Benign neoplasm of sigmoid colon K57.30, Diverticulosis of large intestine without perforation orabscess without bleeding CPT copyright 2017 [employer]. All rights reserved. The codes documented in this report are preliminary and upon medical billing coder reviewmay be revised to meet current compliance requirements. Recognized by the [employer] for promoting quality [...] mL/min/1.73m2 *Relative to young adult level If -[employer] multiply value by 1.16. Estimated glomerular filtration [...] ORDERABLES Final Resul t MARCIN LOWE GERSON) [facility] Department of Laboratories [place], [place] [id number] * (ABNORMAL) Serum lipid panel (04/07/2013 8:45 PM DESKIDDING MACHINE OPERATOR) LDL 54 0 - 129 [...] revised on 2007. Serum 04/07/2013 8:45 PM DESKIDDING MACHINE OPERATOR us Edgar Pratt MD LAB BLOOD ORDERABLES Final Resul t HISTORICAL RESULTS from Last 3 Months or Most Recently Relevant to Health Maintenance Insurance [facility] [employer] [employer]O Address: [address] [place] [address] [facility] [employer] [employer]O Address: [address] [place], [place] [id number] [facility] [employer] [facility] [employer]/PPO Address: [facility] [id number] [place] [id number] Care Teams Tower Control Operator Relationship Specialty Start Date End Date Giorgio Lee MD PCP - General 06/04/16
--- OUTSIDE RECORDS SUMMARY | 2024-06-13 18:49 | XMS_ITS | Clinical Summary ---
Author Organization [facility] Address [address] [place] [address] Phone Care Team Providers Care Director Of Vital Statistics Name Role Phone WILIAM PHILLIPS, LUCY JUNG Unavailable [phone] Reason for Visit and Chief Complaint The Chief Complaint is: follow up for anxiety and depression Problems Includes: Problems addressed during this encounter and other active Problems Current Visit Onset Date Resolved Date Provider Conditio n Status Narcolepsy 10/05/2014 Active Last Documented On 3 5:48PM ; [facility] 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 Last Documented On 3 5:45PM ; [facility] Major Depression, Recurrent 07/19/2012 Active Last Documented On 3 5:45PM ; [facility] Restless Legs Syndrome 07/19/2012 Ac tive Last Documented On 3 5:45PM ; [facility] Obsessive Compulsive Disorder 03/08/2012 Active Last Documented On 3 5:50PM ; [facility] Generalized Anxiety Disorder 03/08/2012 Active Last Documented On 3 5:42PM ; [facility] Obsessive Compulsive Disorder 03/08/2012 Inactive Last Documented On 3 5:42PM ; [facility] Past Visits Onset Date Resolved Date Provider Condition Status Diabetes Mellitus 07/19/2012 Active Last Documented On 3 5:45PM ; [facility] Gerd 03/08/2012 Active Last Documented On 3 5:42PM ; [facility] Hyperlipidemia 03/08/2012 Active Last Documented On 3 5:42PM ; [facility] Nephrolithiasis 03/08/2012 Active Last Documented On 3 5:42PM ; [facility] Plan of Treatment Major depressive disorder - Paxil 40 mg 1 and 1/2 tabs daily Obsessive Compulsive Disorder - Paxil 40 mg 1 and 1/2 tab daily Generalized Anxiety Disorder - Buspar 15 mg 1 tab 2 x a day LISA - Vpap tx is no longer helping, he now sees a different sleep specialist in [place], [place] Dr. Lujan -- Modafinil 200 mg in am Restless legs Syndrome - Pramipexole 1.5 mg in evening - Last Documented On 01/03/2023 12:30PM ; [facility] Future Appointments Date Time Location Provi conrad TELEHEALTH ADULT PSYCH ESTABLISHED 06/20/2024 4:40PM [facility] STILL MD Last Documented On 4 5:56PM ; [facility] Education and Decision Aids were provided during visit for: Discussed good sleep hygiene habits Last Documented On 3 6:40PM ; [facility] Assessments Includes: Assessments from this encounter Findings - Obstructive sleep apnea - Last Documented On 01/03/2023 12:30PM ; [facility] - Restless legs syndrome - Last Documented On 01/03/2023 12:30PM ; [facility] - Major depression, recurrent - Last Documented On 01/03/2023 12:30PM ; [facility] - Narcolepsy - Last Documented On 01/03/2023 12:30PM ; [facility] - Generalized anxiety disorder - Last Documented On 01/03/2023 12:30PM ; [facility] - Obsessive compulsive disorder - Last Documented On 01/03/2023 12:30PM ; [facility] Instructions Includes: Instructions from this encounter Education and Decision Aids were provided during visit for: Discussed good sleep hygiene habits Last Documented On 3 6:40PM ; [facility] Medical Equipment - Implanted Devices Includes: Current Devices No Medical Equipment Recorded Medications Includes: Medications discussed during this encounter and other current Medications Discontinued / Stopped on this date on 06/23/2022 Gemtesa 75 MG OR TABS Provider: Diagnosis: Last Documented On 12/23/2022 4:48PM By ELISEO BARCENAS ; [facility] Current Medications (continue as prescribed) Paxil 40 MG Oral Tablet 06/21/2023 Provider: BRIONNA STILL MD Diagnosis: Obsessive-compul sive disorder, unspecified TAKE 1 AND 1/2 TABLETS BY [facility] DAILY DIRECTED Last Documented On 06/21/2023 5:42PM By Yajaira Still MD ; [facility] busPIRone HCl 15 MG Oral Tablet 06/20/2023 Provider: LUCY STILL MD Diagnosis: Generalized anxi ety disorder One tablet twice a day Last Documented On 06/20/2023 10:49AM By Yajaira Still MD ; [facility] Pramipexole Dihydrochloride 1 MG Oral Tablet 04/20/2023 Provider: NICOLA Archibald Diagnosis: 1 and 1/2 tab in the evening Last Documented On 06/21/2023 5:48PM By Yajaira Still MD ; [facility] Fish Oil 1200 MG Oral Capsule 12/23/2022 Provider: Diagnosis: 3 caps daily Last Documented On 12/23/2022 4:48PM By ELISEO BARCENAS ; [facility] oxyBUTYnin Chloride ER 15 MG Oral Tablet Extended Release 24 Hour 11/15/2022 Provider: RAFITA RUGGIERO MD Diagnosis: 1 tab daily Last Documented On 12/23/2022 4:48PM By ELISEO DIAL RMA ; [facility] Januvia 100 MG OR TABS 10/02/2021 Provider: Diagnosis: 1 tab daily Last Documented On 07/03/2022 5:27PM By ELISEO BARCENAS ; [facility] FeroSul 325 (65 Fe) MG OR TABS 05/28/2021 Provider: Diagnosis: 1 tab daily Last Documented On 07/03/2022 5:27PM By ELISEO BARCENAS ; [facility] EPINEPHrine 0.3 MG/0.3ML IJ SOAJ 2020 Provider : Diagnosis: use as directed Last Documented On 07/03/2022 5:27PM By ELISEO BARCENAS ; [facility] Rosuvastatin Calcium 10 MG OR TABS 06/18/2019 Provid er: Diagnosis: one tablet daily Last Documented On 07/03/2022 5:27PM By JENNIFER CARMICHAEL ; [facility] Modafinil 200 MG OR TABS 07/24/2018 Provider: MET SHELDON STILL MD Diagnosis: Obstructive slee p apnea (adult) (pediatric) as directed -- 1 tab in am Last Documented On 07/03/2022 5:27PM By Yajaira Still MD ; [facility] Amphetamine-Dextroamphetamin e 30 MG OR TABS 01/01/2016 Provider: LUCY STILL MD Diagnosis: Sleep apnea, unspecified as directed Take 1/2 tablet in am and 1/2 tab at 2: 30 pm Last Documented On 07/03/2022 5:27PM By Yajaira Still MD ; [facility] PA Vitamin D-3 25 MCG (1000 UT) OR TABS 01/01/2015 P rovider: Diagnosis: Last Documented On 07/03/2022 5:27PM By Yajaira Still MD ; [facility] metFORMIN HCl 1000 MG TABS 07/19/2012 Provider: Diagnosis: Last Documented On 07/03/2022 5:27PM By VALENTINO GOLD ; [facility] Omeprazole 20 MG OR CPDR 03/08/2012 Provider: Diagnosis: Last Documented On 07/03/2022 5:27PM By VALENTINO GOLD ; [facility] Past Medications on file busPIRone HCl 7.5 MG OR TABS 03/17/2018 - 04/16/2018 P rovider: Diagnosis: Major depressive disorder, recurrent, moderate 2 tablets twice a day Last Documented On 07/03/2022 5:27PM By ELISEO BARCENAS ; [facility] Nuvigil 250 MG OR TABS 03/31/2015 - 04/14/2015 Provider: LUCY TOMAS MD Diagnosis: Obstructive slee p apnea (adult) (pediatric) 1 tablet every morning --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 His highest grade level achieved was graduate school. 12/23/2022 Last Documented On 3 4:55PM ; [facility] Tobacco non-user 12/23/2022 Last Documented On 3 12:30PM ; [facility] Smoking Status Unknown Procedures and Surgical History Includes: Procedures from this encounter Procedures Code Diagnosis Performing Provider Service L ocation Service Date education and instructions Last Documented On 3 4:32PM ; [facility] supportive care and encourag ement--given positive reinforcement to keep patient motivated and active Last Documented On 3 5:00PM ; [facility] ~* Call [phone] and /or go t o the nearest emergency room or call me if suicidal/homicidal ideation or other serious concerns arise. ~ ~* I gave instructions to call me should there be any questions or concerns. ~ ~* Patient voiced understanding and agreed to treatment plan Last Documented On 3 4:49PM ; [facility] dangerousness assessment: no suicide risk 3085F Last Documented On 3 4:32PM ; [facility] use of tobacco assessment performed 1000F Last Documented On 3 4:50PM ; [facility] patient screened for future fall risk: documentation of any fall with injury in past year - no recent falls 1100F Last Documented On 3 4:49PM ; [facility] review of medications documented 1160F Last Documented On 3 4:49PM ; [facility] screening for adult depression: impressi on and score - not suicidal Last Documented On 3 4:50PM ; [facility] standardized depression screening: posit refugio for symptoms Last Documented On 3 4:50PM ; [facility] encouragement to exercise - balanced pippa l plan, low fat low carb diet Last Documented On 3 4:49PM ; [facility] Clinical summary provided to patient Last Documented On 3 4:32PM ; [facility] PHQ-9: total score 2 Last Documented On 3 4:58PM ; [facility] Medical History Includes: Medical History addressed during this encounter Description Last Updated Primary Care Provider: Dr. Nahed Lee -- Josiah Lujan -- Neurologist Dr. Rafita Salguero/Dr. Víctor Pichardo -Urologist -- [facility] Dr. Stephan Osuna -- Ophthamologist.Dr. [...] -- 09/2014, another lithotripsy done 12/17/16 -- [facility] (Dr. Pichardo) -- 06/2017 stones removed, 11/2017 stones removed at [facility] -- passed kidney stone at home 11/2018. Overactive bladder - and urge to urinate -- given Myrbetriq 25 mg and given Tamsulosin 0.4 mg 04/30/22 and 02/01/22. Hyperlipidemia. Diabetes mellitus. Contact dermatitis -- he took a steroid, antibiotic, benadryl. Arthritis - right hand -- appointment with Dr. Eduard Bañuelos [facility]. Restless legs syndrome. Narcolepsy --Dr. Conroy added Adderall 11/2014. Allergic reaction - unknown origin -- hospitalized at [facility] 09/27/20 -- given Epipen [...] 201012/23/2022 Last Documented On 3 6:41PM ; [facility] Family History Includes: Family History addressed during this encounter Description Last Updated Family medical history: No significant f amily history 12/23/2022 Last Documented On 3 4:56PM ; [facility] Review of Systems Includes: [...] Active Last Documented On 06/21/2023 4:56PM ; [facility] Note: Imported from external source. Cipro Allergy 12/20/2018 Active Last Documented On 06/21/2023 4:56PM ; [facility] Note: Imported from external source. Cipro Allergy Hives / Urticaria 12/20/2018 R esolved Last Documented On 4:47PM ; [facility] Aspartame Allergy Skin Rashes / Eruption of skin 06/29/2018 Active Last Documented On 06/21/2023 4:56PM ; [facility] Note: Imported from external source. Encounters Encounter Provider Location Date Check-In Time Check-Out Time Diagnosis TELEHEALTH ADULT PSYCH ESTABLISHED LUCY STILL MD [facility] 12/24/19 4:32PM 11:59PM Nonorganic Sleep Apnea Obstructive,O bsessive Compulsive Disorder,Rest less Legs Syndrome,Gene ralized Anxiety Disorder,Jinny r Depression, Recurrent,Mike colepsy Insurance Includes: Active Insurance Policies Plan Name Member ID Group # Subscriber Relationship Effect refugio Dates 1 - [facility] [id number] MARYAM MUNOZ 03/10/2020 - Unknown Clinical Notes Includes: Clinical Notes from this encounter * Progress note Date Encounter Last Documented by 12/23/2022 TELEHEALTH ADULT PSYCH ESTABLISH ED Last documented on 01/03/2023; 12:30 PM, LUCY STILL MD; [facility] Top of Document Medication psychotherapy [...] 18 months to qualify for a pension intermediate. He is busy driving his 25 y/o [...] Dr. Rafita Salguero/Dr. Víctor Pichardo -Urologist -- [facility] Dr. Stephan Osuna -- Ophthamologist. Dr. Ron Richards -- Technical Stenographer Diagnoses: mosquito-like bites or red spots on [...] -- 09/2014, another lithotripsy done 12/17/16 -- [facility] (Dr. Pichardo) -- 06/2017 stones removed, 11/2017 stones removed at [facility] -- passed kidney stone at home 11/2018. Overactive bladder - and urge to urinate -- given Myrbetriq 25 mg and given Tamsulosin 0.4 mg 04/30/22 and 02/01/22. Hyperlipidemia. Diabetes mellitus. Contact dermatitis -- he took a steroid, antibiotic, benadryl. Arthritis - right hand -- appointment with Dr. Eduard Bañuelos [facility]. Restless legs syndrome. Narcolepsy --Dr. Conroy added Adderall 11/2014. Allergic reaction - unknown origin -- hospitalized at [facility] 09/27/20 -- given Epipen [...] PREVIOUS PSYCHIATRIC HOSPITALIZATIONS: He was treated at [facility] by Dr. Radames Boyer from [phone]. PREVIOUS PSYCHIATRIC TREATMENT: Dr. Radames Boyer from [phone]. PREVIOUS PSYCHIATRIC MEDICATIONS: Anafranil-caused weight gain Prozac, which he took for 2 years. These were given by Dr. Radames Boyer from [place]. Social History Tobacco use: Tobacco non-user. Caffeine use: No coffee consumption -- He drinks 1 can of diet soda and 1 glass of tea a day. Tobacco use: Smoking status: Never smoker. Alcohol: Not using alcohol. Drug Use: Not using drugs (Illicit). 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 Marital: Marital history -- . He [...] Clinical summary provided to patient. * Call [phone] and /or go to the nearest emergency [...] now sees a different sleep specialist in [place], [place] Dr. Lujan -- Modafinil 200 mg [...]
--- OUTSIDE RECORDS SUMMARY | 2024-06-13 18:49 | XMS_ITS | Clinical Summary ---
Author Organization [facility] Address [address] [place] [address] Phone Care Team Providers Care Therapeutic Consultant Name Role Phone WILIAM PHILLIPS, LUCY JUNG [facility] [phone] Reason for Visit and Chief Complaint [Patient Encounter] Problems Includes: Problems addressed during this encounter and other active Problems All Visits Onset Date Resolved Date Provider Condition S tatus Narcolepsy 10/05/2014 Active Last Documented On 3 5:48PM ; [facility] Diabetes Mellitus 07/19/2012 Active Last Documented On 3 5:45PM ; [facility] 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 Last Documented On 3 5:45PM ; [facility] Major Depression, Recurrent 07/19/2012 Active Last Documented On 3 5:45PM ; [facility] Restless Legs Syndrome 07/19/2012 Ac tive Last Documented On 3 5:45PM ; [facility] Obsessive Compulsive Disorder 03/08/2012 Active Last Documented On 3 5:50PM ; [facility] Generalized Anxiety Disorder 03/08/2012 Active Last Documented On 3 5:42PM ; [facility] Gerd 03/08/2012 Active Last Documented On 3 5:42PM ; [facility] Hyperlipidemia 03/08/2012 Active Last Documented On 3 5:42PM ; [facility] Nephrolithiasis 03/08/2012 Active Last Documented On 3 5:42PM ; [facility] Plan of Treatment Future Appointments Date Time Location Provi conrad TELEHEALTH ADULT PSYCH ESTABLISHED 06/20/2024 4:40PM [facility] LUCY STILL MD Last Documented On 5:56PM ; [facility] Assessments Includes: Assessments [...] 07/03/2022 5:27PM By Yajaira Still MD ; [facility] Current Medications (continue as prescribed) Paxil 40 MG Oral Tablet 06/21/2023 Provider: BRIONNA STILL MD Diagnosis: Obsessive-compul sive disorder, unspecified TAKE 1 AND 1/2 TABLETS BY [facility] DAILY DIRECTED Last Documented On 06/21/2023 5:42PM By Yajaira Still MD ; [facility] busPIRone HCl 15 MG Oral Tablet 06/20/2023 Provider: LUCY STILL MD Diagnosis: Generalized anxi ety disorder One tablet twice a day Last Documented On 06/20/2023 10:49AM By Yajaira Still MD ; [facility] Pramipexole Dihydrochloride 1 MG Oral Tablet 04/20/2023 Provider: NICOLA Archibald Diagnosis: 1 and 1/2 tab in the evening Last Documented On 06/21/2023 5:48PM By Yajaira Still MD ; [facility] Fish Oil 1200 MG Oral Capsule 12/23/2022 Provider: Diagnosis: 3 caps daily Last Documented On 12/23/2022 4:48PM By ELISEO BARCENAS ; [facility] oxyBUTYnin Chloride ER 15 MG Oral Tablet Extended Release 24 Hour 11/15/2022 Provider: LAYO RUGGIERO MD Diagnosis: 1 tab daily Last Documented On 12/23/2022 4:48PM By ELISEO BARCENAS ; [facility] Januvia 100 MG OR TABS 10/02/2021 Provider: Diagnosis: 1 tab daily Last Documented On 07/03/2022 5:27PM By ELISEO BARCENAS ; [facility] FeroSul 325 (65 Fe) MG OR TABS 05/28/2021 Provider: Diagnosis: 1 tab daily Last Documented On 07/03/2022 5:27PM By ELISEO BARCENAS ; [facility] EPINEPHrine 0.3 MG/0.3ML IJ SOAJ 2020 Provider : Diagnosis: use as directed Last Documented On 07/03/2022 5:27PM By ELISEO BARCENAS ; [facility] Rosuvastatin Calcium 10 MG OR TABS 06/18/2019 Provid er: Diagnosis: one tablet daily Last Documented On 07/03/2022 5:27PM By JENNIFER CARMICHAEL ; [facility] Modafinil 200 MG OR TABS 07/24/2018 Provider: MET SHELDON STILL MD Diagnosis: Obstructive slee p apnea (adult) (pediatric) as directed -- 1 tab in am Last Documented On 07/03/2022 5:27PM By Yajaira Still MD ; [facility] Amphetamine-Dextroamphetamin e 30 MG OR TABS 01/01/2016 Provider: LUCY STILL MD Diagnosis: Sleep apnea, unspecified as directed Take 1/2 tablet in am and 1/2 tab at 2: 30 pm Last Documented On 07/03/2022 5:27PM By Yajaira Still MD ; [facility] PA Vitamin D-3 25 MCG (1000 UT) OR TABS 01/01/2015 P rovider: Diagnosis: Last Documented On 07/03/2022 5:27PM By Yajaira Still MD ; [facility] metFORMIN HCl 1000 MG TABS 07/19/2012 Provider: Diagnosis: Last Documented On 07/03/2022 5:27PM By VALENTINO GOLD ; [facility] Omeprazole 20 MG OR CPDR 03/08/2012 Provider: Diagnosis: Last Documented On 07/03/2022 5:27PM By VALENTINO GOLD ; [facility] Medications Administered Includes: Administered Medications [...] vitals Last Documented: On 07/03/2022 6:00PM ; [facility] Results Includes: Results discussed during [...] Active Last Documented On 06/21/2023 4:56PM ; [facility] Note: Imported from external source. Cipro Allergy 12/20/2018 Active Last Documented On 06/21/2023 4:56PM ; [facility] Note: Imported from external source. Cipro Allergy Hives / Urticaria 12/20/2018 R esolved Last Documented On 4:47PM ; [facility] Aspartame Allergy Skin Rashes / Eruption of skin 06/29/2018 Active Last Documented On 06/21/2023 4:56PM ; [facility] Note: Imported from external source. Encounters Encounter Provider Location Date Check-In Time Check-Out Time Diagnosis [Patient Encounter] 06/16/2021 12:00AM 11:59PM Insurance Includes: Active Insurance Policies Plan Name Member ID Group # Subscriber Relationship Effect refugio Dates 1 - [facility] [id number] MARYAM MUNOZ 03/10/2020 - Unknown Clinical Notes Includes: Clinical Notes from this encounter No Clinical Notes Recorded
--- OUTSIDE RECORDS SUMMARY | 2024-06-13 18:49 | XMS_ITS | Clinical Summary ---
Author Organization [facility] Address [address] [place] [address] Phone Care Team Providers Care Weigher And Crusher Name Role Phone WILIAM PHILLIPS, LUCY JUNG [facility] [phone] Reason for Visit and Chief Complaint [Patient Encounter] Problems Includes: Problems addressed during this encounter and other active Problems All Visits Onset Date Resolved Date Provider Condition S tatus Narcolepsy 10/05/2014 Active Last Documented On 3 5:48PM ; [facility] Diabetes Mellitus 07/19/2012 Active Last Documented On 3 5:45PM ; [facility] 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 Last Documented On 3 5:45PM ; [facility] Major Depression, Recurrent 07/19/2012 Active Last Documented On 3 5:45PM ; [facility] Restless Legs Syndrome 07/19/2012 Ac tive Last Documented On 3 5:45PM ; [facility] Obsessive Compulsive Disorder 03/08/2012 Active [...] [facility] Plan of Treatment Future Appointments Date Time Location Provi conrad TELEHEALTH ADULT PSYCH ESTABLISHED 06/20/2024 4:40PM [facility] LUCY STILL MD Last Documented On 5:56PM ; [facility] Assessments Includes: Assessments from [...] BARCENAS ; [facility] Current Medications (continue as prescribed) Paxil 40 MG Oral Tablet 06/21/2023 Provider: BRIONNA STILL MD Diagnosis: Obsessive-compul sive disorder, unspecified TAKE 1 AND 1/2 TABLETS BY [facility] DAILY DIRECTED Last Documented On 06/21/2023 5:42PM By Yajaira Still MD ; [facility] busPIRone HCl 15 MG Oral Tablet 06/20/2023 Provider: LUCY STILL MD Diagnosis: Generalized anxi ety disorder One tablet twice a day Last Documented On 06/20/2023 10:49AM By Yajaira Still MD ; [facility] Pramipexole Dihydrochloride 1 MG Oral Tablet 04/20/2023 Provider: NICOLA Archibald Diagnosis: 1 and 1/2 tab in the evening Last Documented On 06/21/2023 5:48PM By Yajaira Still MD ; [facility] Fish Oil 1200 MG [...] On 07/03/2022 5:27PM By ELISEO BARCENAS ; [facility] Rosuvastatin Calcium 10 MG OR TABS 06/18/2019 Provid er: Diagnosis: one tablet daily Last Documented On 07/03/2022 5:27PM By JENNIFER CARMICHAEL ; [facility] Modafinil 200 MG OR TABS 07/24/2018 Provider: MET SHELDON STILL MD Diagnosis: Obstructive slee p apnea (adult) (pediatric) as directed -- 1 tab in am Last Documented On 07/03/2022 5:27PM By Yajaira Still MD ; [facility] Amphetamine-Dextroamphetamin e 30 MG OR TABS 01/01/2016 Provider: LUCY STILL MD Diagnosis: Sleep apnea, unspecified as directed Take 1/2 tablet in am and 1/2 tab at 2: 30 pm Last Documented On 07/03/2022 5:27PM By Yajaira Still MD ; [facility] Vitamin D-3 25 MCG (1000 UT) OR TABS 01/01/2015 P rovider: Diagnosis: Last Documented On 07/03/2022 5:27PM By Yajaira Still MD ; [facility] metFORMIN HCl 1000 MG TABS 07/19/2012 Provider: Diagnosis: Last Documented On 07/03/2022 5:27PM By VALENTINO GOLD ; [facility] Omeprazole 20 MG OR CPDR 03/08/2012 Provider: Diagnosis: Last Documented On 07/03/2022 5:27PM By VALENTINO GOLD ; [facility] Medications Administered Includes: Administered Medications from [...] vitals Last Documented: On 07/03/2022 6:00PM ; [facility] Results [...] R esolved Last Documented On 4:47PM ; [facility] [...] Dates 1 - [facility] [id number] MARYAM MUNOZ 03/10/2020 - Unknown Clinical Notes Includes: Clinical Notes from this encounter No Clinical Notes Recorded
--- OUTSIDE RECORDS SUMMARY | 2024-06-13 18:49 | XMS_ITS | Clinical Summary ---
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 Last Documented On 3 5:45PM ; [facility] Major Depression, Recurrent 07/19/2012 Active Last Documented On 3 5:45PM ; [facility] Restless Legs Syndrome 07/19/2012 Ac tive Last Documented On 3 5:45PM ; [facility] Obsessive Compulsive Disorder 03/08/2012 Active Last Documented On 3 5:50PM ; [facility] Generalized Anxiety Disorder 03/08/2012 Active Last Documented On 3 5:42PM ; [facility] Obsessive Compulsive Disorder 03/08/2012 Inactive Last Documented On 3 5:42PM ; [facility] Past Visits Onset Date Resolved Date Provider Condition Status Diabetes Mellitus 07/19/2012 Active Last Documented On 3 5:45PM ; [facility] Gerd 03/08/2012 Active Last Documented On 3 5:42PM ; [facility] Hyperlipidemia 03/08/2012 Active Last Documented On 3 5:42PM ; [facility] Nephrolithiasis 03/08/2012 Active Last Documented On 3 5:42PM ; [facility] Plan of Treatment Major depressive disorder - Paxil 40 mg 1 and 1/2 tabs daily Obsessive Compulsive Disorder - Paxil 40 mg 1 and 1/2 tab daily Generalized Anxiety Disorder - Buspar 15 mg 1 tab 2 x a day LISA - Vpap tx is no longer helping, he now sees a different sleep specialist in [place], [place] Dr. Lujan -- Modafinil 200 mg in am -- he is now back to wearing his CPAP Restless legs Syndrome - Pramipexole 1.5 mg in evening - Last Documented On 07/11/2023 8:45PM ; [facility] Future Appointments Date Time Location Provi conrad TELEHEALTH ADULT PSYCH ESTABLISHED 06/20/2024 4:40PM [facility] STILL MD Last Documented On 5:56PM ; [facility] Assessments Includes: Assessments from this encounter Findings - Obstructive sleep apnea - Last Documented On 07/11/2023 8:45PM ; [facility] - Restless legs syndrome - Last Documented On 07/11/2023 8:45PM ; [facility] - Major depression, recurrent - Last Documented On 07/11/2023 8:45PM ; [facility] - Narcolepsy - Last Documented On 07/11/2023 8:45PM ; [facility] - Generalized anxiety disorder - Last Documented On 07/11/2023 8:45PM ; [facility] - Obsessive compulsive disorder - Last Documented On 07/11/2023 8:45PM ; [facility] Medical Equipment - Implanted Devices Includes: Current Devices No Medical Equipment Recorded Medications Includes: Medications discussed during this encounter and other current Medications Discontinued / Stopped on this date on 06/06/2020 Pramipexole Dihydrochloride 1 MG OR TABS Provider: Diagnosis: Last Documented On 06/21/2023 5:48PM By Yajaira Still MD ; [facility] New / Renewed during this visit LUCY STILL MD on 06/21/2023 Paxil 40 MG Oral Tablet Provider: BRIONNA STILL MD 90 day supply: 135 tablet, 3 refills Diagnosis: Obsessive-compulsive disorder, unspecified TAKE 1 AND 1/2 TABLETS BY [facility] DAILY DIRECTED Pharmacy: [email or web address] [address], [id number] - Last Documented On 06/21/2023 5:42PM By Yajaira Still MD ; [facility] Current Medications (continue as prescribed) busPIRone HCl 15 MG Oral Tablet 06/20/2023 Provider: LUCY STILL MD Diagnosis: Generalized anxi ety disorder One tablet twice a day Last Documented On 06/20/2023 10:49AM By Yajaira Still MD ; [facility] Pramipexole Dihydrochloride 1 MG Oral Tablet 04/20/2023 Provider: NICOLA Archibald Diagnosis: 1 and 1/2 tab in the evening Last Documented On 06/21/2023 5:48PM By Yajaira Still MD ; [facility] Fish Oil 1200 MG Oral Capsule 12/23/2022 Provider: Diagnosis: 3 caps daily Last Documented On 12/23/2022 4:48PM By ELISEO BARCENAS ; [facility] oxyBUTYnin Chloride ER 15 MG Oral Tablet Extended Release 24 Hour 11/15/2022 Provider: RAFITA RUGGIERO MD Diagnosis: 1 tab daily Last Documented On 12/23/2022 4:48PM By ELISEO DIAL RMA ; [facility] Januvia 100 MG OR TABS 10/02/2021 Provider: Diagnosis: 1 tab daily Last Documented On 07/03/2022 5:27PM By ELISEO BARCENAS ; [facility] FeroSul 325 (65 Fe) MG OR TABS 05/28/2021 Provider: Diagnosis: 1 tab daily Last Documented On 07/03/2022 5:27PM By ELISEO BARCENAS ; [facility] EPINEPHrine 0.3 MG/0.3ML IJ SOAJ 2020 Provider : Diagnosis: use as directed Last Documented On 07/03/2022 5:27PM By ELISEO BARCENAS ; [facility] Rosuvastatin Calcium 10 MG OR TABS 06/18/2019 Provid er: Diagnosis: one tablet daily Last Documented On 07/03/2022 5:27PM By JENNIFER CARMICHAEL ; [facility] Modafinil 200 MG OR TABS 07/24/2018 Provider: MET SHELDON STILL MD Diagnosis: Obstructive slee p apnea (adult) (pediatric) as directed -- 1 tab in am Last Documented On 07/03/2022 5:27PM By Yajaira Still MD ; [facility] Amphetamine-Dextroamphetamin e 30 MG OR TABS 01/01/2016 Provider: LUCY STILL MD Diagnosis: Sleep apnea, unspecified as directed Take 1/2 tablet in am and 1/2 tab at 2: 30 pm Last Documented On 07/03/2022 5:27PM By Yajaira Still MD ; [facility] Vitamin D-3 25 MCG (1000 UT) OR TABS 01/01/2015 P rovider: Diagnosis: Last Documented On 07/03/2022 5:27PM By Yajaira Still MD ; [facility] metFORMIN HCl 1000 MG TABS 07/19/2012 Provider: Diagnosis: Last Documented On 07/03/2022 5:27PM By VALENTINO GOLD ; [facility] Omeprazole 20 MG OR CPDR 03/08/2012 Provider: Diagnosis: Last Documented On 07/03/2022 5:27PM By VALENTINO GOLD ; [facility] Past Medications on file busPIRone HCl 7.5 MG OR TABS 03/17/2018 - 04/16/2018 P rovider: Diagnosis: Major depressive disorder, recurrent, moderate 2 tablets twice a day Last Documented On 07/03/2022 5:27PM By ELISEO BARCENAS ; [facility] Nuvigil 250 MG OR TABS 03/31/2015 - 04/14/2015 Provider: LUCY TOMAS MD Diagnosis: Obstructive slee p apnea (adult) (pediatric) 1 tablet every morning --14 samples for corn picker 03/31/15 Last Documented On 07/03/2022 5:27PM By Yajaira Still MD ; [facility] Medications Administered Includes: Administered Medications [...] vitals Last Documented: On 06/21/2023 4:59PM ; [facility] Results Includes: Results discussed during this encounter [...] planning to go for a trip to [facility] and [facility]. Once they landed in [facility] last 03/26/2023 he felt sick and was having some coughing fits and immediately he thought that he got COVID. 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 His highest grade level achieved was graduate school. 06/21/2023 Last Documented On 4 4:45PM ; [facility] Tobacco non-user 06/21/2023 Last Documented On 4 8:45PM ; [facility] Smoking Status Unknown Procedures and Surgical History Includes: Procedures from this encounter Procedures Code Diagnosis Performing Provider Service Location Service Date PSYCHOTHERAPY 30 MIN W/ [place] [address] Major depressive disorder, recurrent, moderate, Generalized anxiety disorder, Restless legs syndrome, Narcolepsy without cataplexy LUCY STILL MD [facility] 06/21/2023 Last Documented On 4 4:04PM ; [facility] education and instructions Last Documented On 4 4:45PM ; [facility] supportive care and encourag ement--given positive reinforcement to keep patient motivated and active Last Documented On 4 5:05PM ; [facility] ~* Call [phone] and /or go t o the nearest emergency room or call me if suicidal/homicidal ideation or other serious concerns arise. ~ ~* I gave instructions to call me should there be any questions or concerns. ~ ~* Patient voiced understanding and agreed to treatment plan Last Documented On 4 4:57PM ; [facility] dangerousness assessment: no suicide risk 3085F Last Documented On 4 4:45PM ; [facility] use of tobacco assessment performed 1000F Last Documented On 4 4:45PM ; [facility] patient screened for future fall risk: documentation of any fall with injury in past year - no recent falls 1100F Last Documented On 4 4:45PM ; [facility] review of medications documented 1160F Last Documented On 4 4:45PM ; [facility] assessment of suicide risk performed - n ot suicidal Last Documented On 4 4:57PM ; [facility] screening for adult depressi on: impression and score - please see above for treatment and PHQ score Last Documented On 4 4:57PM ; [facility] standardized depression screening: posit refugio for symptoms Last Documented On 4 4:45PM ; [facility] encouragement to exercise - balanced pippa l plan, low fat low carb diet Last Documented On 4 4:57PM ; [facility] Clinical summary provided to patient Last Documented On 4 4:45PM ; [facility] PHQ-9: total score 2 Last Documented On 4 12:11PM ; [facility] Medical History Includes: Medical History addressed during this encounter Description Last Updated Primary Care Provider: Dr. Nahed Lee -- Josiah Lujan -- Neurologist Dr. Rafita Salguero/Dr. Víctor Pichardo -Urologist -- [facility] Dr. Stephan Osuna -- Ophthamologist.Dr. Ron Richards [...] -- 09/2014, another lithotripsy done 12/17/16 -- [facility] (Dr. Pichardo) -- 06/2017 stones removed, 11/2017 stones removed at [facility] -- passed kidney stone at home 11/2018. Overactive bladder - and urge to urinate -- given Myrbetriq 25 mg and given Tamsulosin 0.4 mg 04/30/22 and 02/01/22. Hyperlipidemia. Diabetes mellitus. Contact dermatitis -- he took a steroid, antibiotic, benadryl. Arthritis - right hand -- appointment with Dr. Eduard Bañuelos [facility]. Restless legs syndrome. Narcolepsy --Dr. Conroy added Adderall 11/2014. Allergic reaction - unknown origin -- hospitalized at [facility] 09/27/20 -- given Epipen and Prednisone 10 [...] 201006/21/2023 Last Documented On 4 5:04PM ; [facility] Family History Includes: Family History addressed during this encounter Description Last Updated Family medical history: No significant f amily history 06/21/2023 Last Documented On 4 4:45PM ; [facility] Review of Systems Includes: Review of Systems [...] Active Last Documented On 06/21/2023 4:56PM ; [facility] Note: Imported from external source. Cipro Allergy 12/20/2018 Active Last Documented On 06/21/2023 4:56PM ; [facility] Note: Imported from external source. Cipro Allergy Hives / Urticaria 12/20/2018 R esolved Last Documented On 3 4:47PM ; [facility] Aspartame Allergy Skin Rashes / Eruption of skin 06/29/2018 Active Last Documented On 06/21/2023 4:56PM ; [facility] Note: Imported from external source. Encounters Encounter Provider Location Date Check-In Time Check-Out Time Diagnosis TELEHEALTH ADULT PSYCH ESTABLISHED LUCY STILL MD [facility] 06/21/19 24 4:45PM 11:59PM Major Depression, Recurrent,Gene ralized Anxiety Disorder,Obses sive Compulsive Disorder,Narco lepsy,Restless Legs Syndrome,Nonor ganic Sleep Apnea Obstructive Insurance Includes: Active Insurance Policies Plan Name Member ID Group # Subscriber Relationship Effect refugio Dates 1 - [facility] [id number] MARYAM MUNOZ 03/10/2020 - Unknown Clinical Notes Includes: Clinical Notes from this encounter * Progress note Date Encounter Last Documented by 06/21/2023 TELEHEALTH ADULT PSYCH ESTABLISH ED Last documented on 07/11/2023; 8:45 PM, LUCY STILL MD; [facility] Top of Document Medication [...] planning to go for a trip to [facility] and [place]. Once they landed in [facility] last 03/26/2023 he felt sick and [...] Primary Care Provider: Dr. Nicola Lee -- [place] Dr. Sukhdev Lujan -- Neurologist Dr. Rafita Salguero/Dr. Víctor Pichardo -Urologist -- [facility] Dr. Stephan Osuna -- Ophthamologist. Dr. Ron Richards -- Publishing Specialist Diagnoses: mosquito-like bites or red spots on [...] -- 09/2014, another lithotripsy done 12/17/16 -- [facility] (Dr. Pichardo) -- 06/2017 stones removed, 11/2017 stones removed at [facility] -- passed kidney stone at home 11/2018. Overactive bladder - and urge to urinate -- given Myrbetriq 25 mg and given Tamsulosin 0.4 mg 04/30/22 and 02/01/22. Hyperlipidemia. Diabetes mellitus. Contact dermatitis -- he took a steroid, antibiotic, benadryl. Arthritis - right hand -- appointment with Dr. Eduard Bañuelos [facility]. Restless legs syndrome. Narcolepsy --Dr. Conroy added Adderall 11/2014. Allergic reaction - unknown origin -- hospitalized at [facility] 09/27/20 -- given Epipen and Prednisone 10 [...] treated at [facility] by Dr. Radames Boyer from [id number]. PREVIOUS PSYCHIATRIC TREATMENT: Dr. Radames Boyer from [id number]. PREVIOUS PSYCHIATRIC MEDICATIONS: Anafranil-caused weight gain Prozac, which he took for 2 years. These were given by Dr. Radames Boyer from [place]. Social History Tobacco use: Tobacco non-user. Caffeine use: No coffee consumption -- He drinks 1 can of diet soda and 1 glass of tea a day. Tobacco use: Smoking status: Never smoker. Alcohol: Not using alcohol. Drug Use: Not using drugs (Illicit). 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 Marital: Marital history -- . He [...] Clinical summary provided to patient. * Call [phone] and /or go to the nearest emergency [...] now sees a different sleep specialist in [place], [place] Dr. Lujan -- Modafinil 200 mg [...]
--- OUTSIDE RECORDS SUMMARY | 2024-06-13 18:49 | XMS_ITS | Clinical Summary ---
Author Organization [facility] Address [address] [place] [address] Phone Care Team Providers Care Temperature Regulator Name Role Phone WILIAM PHILLIPS, LUCY JUNG [facility] [phone] Reason for Visit and Chief Complaint [Patient Encounter] Problems Includes: Problems addressed during this encounter and other active Problems All Visits Onset Date Resolved Date Provider Condition S tatus Narcolepsy 10/05/2014 Active Last Documented On 3 5:48PM ; [facility] Diabetes Mellitus 07/19/2012 Active Last Documented On 3 5:45PM ; [facility] 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 Last Documented On 3 5:45PM ; [facility] Major Depression, Recurrent 07/19/2012 Active Last Documented On 3 5:45PM ; [facility] Restless Legs Syndrome 07/19/2012 Ac tive Last Documented On 3 5:45PM ; [facility] Obsessive Compulsive Disorder 03/08/2012 Active Last Documented On 3 5:50PM ; [facility] Generalized Anxiety Disorder 03/08/2012 Active Last Documented On 3 5:42PM ; [facility] Gerd 03/08/2012 Active Last Documented On 3 5:42PM ; [facility] Hyperlipidemia 03/08/2012 Active Last Documented On 3 5:42PM ; [facility] Nephrolithiasis 03/08/2012 Active Last Documented On 3 5:42PM ; [facility] Plan of Treatment Future Appointments Date Time Location Provi conrad [facility] ESTABLISHED 06/20/2024 4:40PM [facility] LUCY STILL MD Last Documented On 5:56PM ; [facility] Assessments Includes: Assessments from this encounter No Assessments Recorded Medical Equipment - Implanted Devices Includes: Current Devices No Medical Equipment Recorded Medications Includes: Medications discussed during this encounter and other current Medications Current Medications (continue as prescribed) Paxil 40 MG Oral Tablet 06/21/2023 Provider: BRIONNA STILL MD Diagnosis: Obsessive-compul sive disorder, unspecified TAKE 1 AND 1/2 TABLETS BY [facility] DAILY DIRECTED Last Documented On 06/21/2023 5:42PM By Yajaira Still MD ; [facility] busPIRone HCl 15 MG Oral Tablet 06/20/2023 Provider: LUCY STILL MD Diagnosis: Generalized anxi ety disorder One tablet twice a day Last Documented On 06/20/2023 10:49AM By Yajaira Still MD ; [facility] Pramipexole Dihydrochloride 1 MG Oral Tablet 04/20/2023 Provider: NICOLA Archibald Diagnosis: 1 and 1/2 tab in the evening Last Documented On 06/21/2023 5:48PM By Yajaira Still MD ; [facility] Fish Oil 1200 MG Oral Capsule 12/23/2022 Provider: Diagnosis: 3 caps daily Last Documented On 12/23/2022 4:48PM By ELISEO BARCENAS ; [facility] oxyBUTYnin Chloride ER 15 MG Oral Tablet Extended Release 24 Hour 11/15/2022 Provider: LAYO RUGGIERO MD Diagnosis: 1 tab daily Last Documented On 12/23/2022 4:48PM By ELISEO BARCENAS ; [facility] Januvia 100 MG OR TABS 10/02/2021 Provider: Diagnosis: 1 tab daily Last Documented On 07/03/2022 5:27PM By ELISEO BARCENAS ; [facility] FeroSul 325 (65 Fe) MG OR TABS 05/28/2021 Provider: Diagnosis: 1 tab daily Last Documented On 07/03/2022 5:27PM By ELISEO BARCENAS ; [facility] EPINEPHrine 0.3 MG/0.3ML IJ SOAJ 2020 Provider : Diagnosis: use as directed Last Documented On 07/03/2022 5:27PM By ELISEO BARCENAS ; [facility] Rosuvastatin Calcium 10 MG OR TABS 06/18/2019 Provid er: Diagnosis: one tablet daily Last Documented On 07/03/2022 5:27PM By JENNIFER CARMICHAEL ; [facility] Modafinil 200 MG OR TABS 07/24/2018 Provider: MET SHELDON STILL MD Diagnosis: Obstructive slee p apnea (adult) (pediatric) as directed -- 1 tab in am Last Documented On 07/03/2022 5:27PM By Yajaira Still MD ; [facility] Amphetamine-Dextroamphetamin e 30 MG OR TABS 01/01/2016 Provider: LUCY STILL MD Diagnosis: Sleep apnea, unspecified as directed Take 1/2 tablet in am and 1/2 tab at 2: 30 pm Last Documented On 07/03/2022 5:27PM By Yajaira Still MD ; [facility] PA Vitamin D-3 25 MCG (1000 UT) OR TABS 01/01/2015 P rovider: Diagnosis: Last Documented On 07/03/2022 5:27PM By Yajaira Still MD ; [facility] metFORMIN HCl 1000 MG TABS 07/19/2012 Provider: Diagnosis: Last Documented On 07/03/2022 5:27PM By VALENTINO GOLD ; [facility] Omeprazole 20 MG OR CPDR 03/08/2012 Provider: Diagnosis: Last Documented On 07/03/2022 5:27PM By VALENTINO GOLD ; [facility] Medications Administered Includes: Administered Medications from [...] vitals Last Documented: On 07/03/2022 6:00PM ; [facility] Results Includes: Results discussed during this [...] Last Documented On 06/21/2023 4:56PM ; [facility] Note: Imported from external source. Cipro Allergy 12/20/2018 Active Last Documented On 06/21/2023 4:56PM ; [facility] Note: Imported from external source. Cipro Allergy Hives / Urticaria 12/20/2018 R esolved Last Documented On 4:47PM ; [facility] Aspartame Allergy Skin Rashes / Eruption of skin 06/29/2018 Active Last Documented On 06/21/2023 4:56PM ; [facility] Note: Imported from external source. Encounters Encounter Provider Location Date Check-In Time Check-Out Time Diagnosis [Patient Encounter] 12/23/2021 12:00AM 11:59PM Insurance Includes: Active Insurance Policies Plan Name Member ID Group # Subscriber Relationship Effect refugio Dates 1 - [facility] [id number] MARYAM MUNOZ 03/10/2020 - Unknown Clinical Notes Includes: Clinical Notes from this encounter No Clinical Notes Recorded
--- OUTSIDE RECORDS SUMMARY | 2024-06-13 18:49 | XMS_ITS | Referral Summary ---
Author Organization [facility] Address [address] [place] [address] Care Team Providers Care Rn Radiology Name Role Phone Giorgio Lee MD Primary Care Provider [phone] Allergies Active Allergy Reactions Criticality Noted Date [...] a meal 0 0 6 Active omega 0-bne-iqh-fish oil (FISH OIL) 360-1,200 mg capsule,delayed release(DR/EC) [...] (06/13/2018): Added automatically from request for surgery [id number] Overweight (BMI 25.0-29.9) 10/22/2016 Hay fever 01/26/2016 [...] on file Legal Sex Male 11:57 PM ZYGLO TECHNICIAN Gender Identity Male 01/13/2019 7:57 PM ZYGLO TECHNICIAN Sexual Orientation Straight 01/13/2019 7: 57 PM ZYGLO TECHNICIAN Last Filed Vital Signs Vital Sign Reading [...] LIPID PANEL Routine 04/07/2013 8:4 5 PM ZYGLO TECHNICIAN from Last 3 Months or Most Recently [...] Attending MD: Ramo Meza M.D. Room: [facility] ENDOSCOPY ROOM 1 Note Status: [...] passed under direct vision.The Pediatric Colonoscope [id number] [id number] was introduced through the anus and advanced [...] 9:02 AM Procedure Code(s): --- Professional --- 38396, Colonoscopy, flexible; with biopsy, single or multiple Diagnosis Code(s): --- Professional --- Z80.0, Family history of malignant neoplasm of digestive organs Z86.010, Personal history of colonic polyps K64.8, Other hemorrhoids D12.5, Benign neoplasm of sigmoid colon K57.30, Diverticulosis of large intestine without perforation orabscess without bleeding CPT copyright 2017 [employer]. All rights reserved. The codes documented in this report are preliminary and upon travel counselor automobile club reviewmay be revised to meet current compliance requirements. Recognized by the [employer] [employer] for promoting quality in endoscopy Ramo Meza MD ENDOSCOPY PROCEDURES Final Result * eGFR (12/12/2016 11:06 AM CDT) eGFR >60 mL/min/1.7 3 m2 [facility] Comment: Interpretive Data Reference Interval Normal >/= 90 mL/min/1.73m2 Mildly decreased* 60 - 89 mL/min/1.73m2 Mildly to moderately decreased 45 - 59 mL/min/1.73m2 Moderately to severely decreased 30 - 44 mL/min/1.73m2 Severely decreased 15 - 29 mL/min/1.73m2 Kidney Failure < 15 mL/min/1.73m2 *Relative to young adult level If -[place] multiply value by 1.16. Estimated glomerular filtration [...] BLOOD ORDERABLES Final Resul t [facility] ([place]) [address] [facility] Department of Laboratories [place], [place] [id number] * (ABNORMAL) Serum lipid panel (04/07/2013 8:45 PM ZYGLO TECHNICIAN) LDL 54 0 - 129 mg/dl HISTORICAL [...] revised on 2007. Serum 04/07/2013 8:45 PM ZYGLO TECHNICIAN Edgar Pratt MD LAB BLOOD ORDERABLES Final Resul t HISTORICAL RESULTS from Last 3 Months or Most Recently Relevant to Health Maintenance Insurance [facility] [employer] [facility] [facility]/PPO Address: [address] [address] [facility]O Address: [address] [address] [facility] [employer]/PPO Address: [address] [address] Care Teams Rn Radiology Relationship Specialty Start Date End Date Giorgio Lee MD PCP - General 06/04/16
--- OUTSIDE RECORDS SUMMARY | 2024-06-13 18:49 | XMS_ITS | Clinical Summary ---
Author Organization [facility] Address [address] [place] [address] Care Team Providers Care Nail Technician Teacher Name Role Phone Giorgio Lee MD Primary Care Provider [phone] Allergies Active Allergy Reactions Criticality Noted Date [...] Comments Blood Pressure 121/78 02/22/2021 12:30 AM [employer] Pulse 77 02/22/2021 1:00 AM [employer] Temperature 36.9 C (98.4 F) 02/21/2021 9:27 PM [employer] Respiratory Rate 15 02/22/2021 1:00 AM [employer] Oxygen Saturation 99% 02/22/2021 1:00 AM [employer] Inhaled Oxygen Concentration - - Weight - - Height 172.7 cm (5' 8 ) 02/21/2021 9:27 PM [employer] Body Mass Index - - Plan of Treatment Health Maintenance Due Date Last Done Comments Colorectal Cancer Screening Colonoscopy (10 Years) 1965 Annual Physical 09/26/1966 Hepatitis C 09/26/1981 Zoster Vaccines (1 of 2) 09/26/2013 DTaP, Tdap and Td Vaccines (2 - Td or Tdap) 09/14/2016 09/14/2006 COVID-19 Vaccine ( season) 2023 07/12/2021, 12/13/2020, 05/31/2020, Additional history exists RSV Immunization or 60+ [...] patient's age to complete this topic Insurance [facility] Care Teams Nail Technician Teacher Relationship Specialty Start Date End Date Giorgio Lee MD PCP - General FAMILY PRACTICE 12/18/20
--- OUTSIDE RECORDS SUMMARY | 2024-06-13 18:50 | XMS_ITS ---
Care Plan - [facility] Created on: June 13, 2024 CHUY MUNOZ : 1965 Sex: Male Author Organization [facility] Address [address] [place] [address] Phone Care Team Providers Care Keypunch Operators Supervisor Name Role Phone WILIAM PHILLIPS, LUCY JUNG [facility] [phone]
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
--- OUTSIDE RECORDS SUMMARY | 2024-06-13 18:50 | XMS_ITS | Encounter Summary ---
Author Organization [facility] Address [address] [place] [address] Care Team Providers Care Tile Inspector Name Role Phone Giorgio Lee MD Primary Care Provider [phone] Giorgio Lee MD Primary Care Provider [phone] Giorgio Lee MD Primary Care Provider [phone] Encounter Details Date Type Department Care Team (Late st Contact Info) Description 04/24/2012 Orders Only [facility] [place] Health Information Management [address] [place] [address] Scanning, Provider Social History Tobacco Use Types Packs/Day Years Used Date Smoking Tobacco: Never Assessed Sex and Gender Information Value Date Recorded Sex Assigned at Not on file Legal Sex 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
--- OUTSIDE RECORDS SUMMARY | 2024-06-13 18:50 | XMS_ITS | Encounter Summary ---
Author Organization [facility] Address [address] [place] [address] Care Team Providers Care Motor Vehicle Light Assembler Name Role Phone Giorgio Lee MD Primary Care Provider [phone] Giorgio Lee MD Primary Care Provider [phone] Giorgio Lee MD Primary Care Provider [phone] Encounter Details Date Type Department Care Team (Late st Contact Info) Description 04/26/2011 Orders Only [facility] [place] Information [place] [address] [place] [address] Scanning, Provider Social History Tobacco Use Types Packs/Day Years Used Date Smoking Tobacco: Never Assessed Sex and Gender Information Value Date Recorded Sex Assigned at Not on file Legal Sex Male 11:57 

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
--- OUTSIDE RECORDS SUMMARY | 2024-06-13 18:50 | XMS_ITS ---
Care Plan - [facility] S Created on: June 13, 2024 CHUY MUNOZ : 1965 Sex: Male Author Organization [facility] S Address [address] [place] [address] Phone Care Team Providers Care Tank Hoop Bender Name Role Phone LUCY SWAIN MD Unavailable [phone]
--- OUTSIDE RECORDS SUMMARY | 2024-06-13 18:50 | XMS_ITS ---
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 Nahed STILL MD Active Last Documented On 3 5:05PM ; [facility] Major Depression, Recurrent 07/19/2012 LUCY STILL MD Active Last Documented On 3 5:16PM ; [facility] Restless Legs Syndrome 07/19/2012 LUCY ALVAREZ MD Active Last Documented On 3 4:33PM ; [facility] Obsessive Compulsive Disorder 03/08/2012 BRADLEY STILL MD Active Last Documented On 0 10:00AM ; [facility] Generalized Anxiety Disorder 03/08/2012 LUCY STILL MD Active Last Documented On 3 2:58PM ; [facility] 03/08/2012 LUCY STILL MD Ac tive Last Documented On 3 2:55PM ; [facility] Hyperlipidemia 03/08/2012 LUCY Archibald Active Last Documented On 3 2:56PM ; [facility] Obsessive Compulsive Disorder 03/08/2012 BRADLEY STILL MD Inactive Last Documented On 7 9:03PM ; [facility] Nephrolithiasis 03/08/2012 LUCY STILL MD Active Last Documented On 3 2:58PM ; [facility] Plan of Treatment Instructions to patient Lose weight Last Documented On 1 4:49PM ; [facility] Lose weight Last Documented On 1 4:56PM ; [facility] Education and Decision Aids were provided during visit for: Patient education about medi cation ---Education was given on medication(s) and diagnosis. I reviewed the risks, benefits and side effects of patient's medications Last Documented On 3 4:33PM ; [facility] Patient education about medi cation ---Education was given on medication(s) and diagnosis. I reviewed the risks, benefits and side effects of patient's medications. Pt reported no side effects with meds Last Documented On 2 7:18PM ; [facility] Patient education about medi cation --- I educated patient on medication(s) and diagnosis. I reviewed the risks, benefits and side effects of patient's medications Last Documented On 2 4:43PM ; [facility] Discussed calming techniques such as breathing exercises and other relaxation techniques Last Documented On 2 4:43PM ; [facility] Counseling for nutrition/rodrigo ght management provided Last Documented On 2 4:55PM ; [facility] Patient education about medi cation --- I educated patient on medication(s) and diagnosis. I reviewed the risks, benefits and side effects of patient's medications Last Documented On 1 4:34PM ; [facility] Discussed calming techniques such as breathing exercises and other relaxation techniques Last Documented On 1 4:34PM ; [facility] Counseling for nutrition/rodrigo ght management provided Last Documented On 1 4:49PM ; [facility] Patient education about medi cation --- I educated patient on medication(s) and diagnosis. I reviewed the risks, benefits and side effects of patient's medications Last Documented On 1 4:39PM ; [facility] Discussed calming techniques such as breathing exercises and other relaxation techniques Last Documented On 1 4:39PM ; [facility] Counseling for nutrition/rodrigo ght management provided Last Documented On 1 4:56PM ; [facility] Patient education about medi cation --- I educated patient on medication(s) and diagnosis. I reviewed the risks, benefits and side effects of patient's medications Last Documented On 0 4:36PM ; [facility] Discussed calming techniques such as breathing exercises and other relaxation techniques Last Documented On 0 4:36PM ; [facility] Counseling for nutrition/rodrigo ght management provided Last Documented On 0 4:51PM ; [facility] Patient education about a pr oper diet Last Documented On 0 8:27AM ; [facility] Patient education about medi cation --- I educated patient on medication(s) and diagnosis. I reviewed the risks, benefits and side effects of patient's medications Last Documented On 0 4:39PM ; [facility] Discussed calming techniques such as breathing exercises and other relaxation techniques Last Documented On 0 4:39PM ; [facility] Patient education about a pr oper diet Last Documented On 9 4:47PM ; [facility] Patient education about medi cation --- I educated patient on medication(s) and diagnosis. I reviewed the risks, benefits and side effects of patient's medications Last Documented On 9 4:34PM ; [facility] Discussed calming techniques such as breathing exercises and other relaxation techniques Last Documented On 9 4:34PM ; [facility] Patient education about a pr oper diet Last Documented On 9 4:52PM ; [facility] Patient education about medi cation --- I educated patient on medication(s) and diagnosis. I reviewed the risks, benefits and side effects of patient's medications Last Documented On 9 4:31PM ; [facility] Discussed calming techniques such as breathing exercises and other relaxation techniques Last Documented On 9 4:31PM ; [facility] Counseling for nutrition/rodrigo ght management provided Last Documented On 9 4:52PM ; [facility] Patient education about a pr oper diet Last Documented On 8 4:33PM ; [facility] Patient education about medi cation --- I educated patient on medication(s) and diagnosis. I reviewed the risks, benefits and side effects of patient's medications Last Documented On 8 4:32PM ; [facility] Counseling for nutrition/rodrigo ght management provided Last Documented On 8 2:20PM ; [facility] Discussed good sleep hygiene habits --was encouraged not to stay up late at night Last Documented On 8 2:20PM ; [facility] Patient education about medi cation --- I educated patient on medication(s) and diagnosis. I reviewed the risks, benefits and side effects of patient's medications Last Documented On 8 4:38PM ; [facility] Discussed calming techniques such as breathing exercises and other relaxation techniques Last Documented On 8 4:38PM ; [facility] Counseling for nutrition/rodrigo ght management provided Last Documented On 8 7:11AM ; [facility] Patient education about medi cation --- I educated patient on medication(s) and diagnosis. I reviewed the risks, benefits and side effects of patient's medications Last Documented On 7 4:32PM ; [facility] Discussed calming techniques such as breathing exercises and other relaxation techniques Last Documented On 7 4:32PM ; [facility] Counseling for nutrition/rodrigo ght management provided Last Documented On 7 8:56AM ; [facility] Patient education about medi cation --- I educated patient on medication(s) and diagnosis. I reviewed the risks, benefits and side effects of patient's medications Last Documented On 7 4:34PM ; [facility] Discussed calming techniques such as breathing exercises/meditation and other relaxation techniques Last Documented On 7 4:34PM ; [facility] Counseling for nutrition/rodrigo ght management provided Last Documented On 7 12:10PM ; [facility] Patient education about medi cation --- I educated patient on medication(s) and diagnosis. I reviewed the risks, benefits and side effects of patient's medications Last Documented On 6 4:32PM ; [facility] Discussed calming techniques such as breathing exercises/meditation and other relaxation techniques Last Documented On 6 4:32PM ; [facility] Counseling for nutrition/rodrigo ght management provided Last Documented On 6 9:43AM ; [facility] Patient education about medi cation --- I educated patient on medication(s) and diagnosis. I reviewed the risks, benefits and side effects of patient's medications Last Documented On 6 4:34PM ; [facility] Discussed calming techniques such as breathing exercises/meditation and other relaxation techniques Last Documented On 6 4:34PM ; [facility] Counseling for nutrition/rodrigo ght management provided Last Documented On 6 5:44PM ; [facility] Patient education about medi cation --- I educated patient on medication(s) and diagnosis. I reviewed the risks, benefits and side effects of patient's medications Last Documented On 5 2:03PM ; [facility] Discussed calming techniques such as breathing exercises/meditation and other relaxation techniques Last Documented On 5 2:03PM ; [facility] Counseling for nutrition/rodrigo ght management provided Last Documented On 5 6:24AM ; [facility] Discussed good sleep hygiene habits Last Documented On 5 6:24AM ; [facility] Patient education about medi cation --- I educated patient on medication(s) and diagnosis. I reviewed the risks, benefits and side effects of patient's medications Last Documented On 5 6:30PM ; [facility] Discussed calming techniques such as breathing exercises/meditation and other relaxation techniques Last Documented On 5 4:34PM ; [facility] Counseling for nutrition/rodrigo ght management provided Last Documented On 5 5:33PM ; [facility] Patient education about medi cation --- I educated patient on medication(s) and diagnosis. I reviewed the risks, benefits and side effects of patient's medications Last Documented On 4 6:15PM ; [facility] Discussed calming techniques such as breathing exercises/meditation and other relaxation techniques Last Documented On 4 4:38PM ; [facility] Counseling for nutrition/rodrigo ght management provided Last Documented On 4 6:15PM ; [facility] Patient education about medi cation --- I educated patient on medication(s) and diagnosis. I reviewed the risks, benefits and side effects of patient's medications Last Documented On 4 11:38PM ; [facility] Discussed calming techniques such as breathing exercises/meditation and other relaxation techniques Last Documented On 4 4:36PM ; [facility] Counseling for nutrition/rodrigo ght management provided Last Documented On 4 11:38PM ; [facility] Patient education about medi cation --- I educated patient on medication(s) and diagnosis Last Documented On 3 7:02PM ; [facility] Discussed calming techniques such as breathing exercises/meditation and other relaxation techniques Last Documented On 3 4:30PM ; [facility] Discussed calming techniques such as breathing exercises/meditation and other relaxation techniques Last Documented On 3 4:32PM ; [facility] Assessments Includes: Assessments for all patient encounters Findings Encounter Date Generalized anxiety disorder TELEHEALTH with MET SHELDON STILL MD 06/23/2022 Last Documented On 3 8:00AM ; [facility] Major depression, recurrent TELEHEALTH with BRIONNA STILL MD 06/23/2022 Last Documented On 3 8:00AM ; [facility] Obsessive compulsive disorder TELEHEALTH with ME EMANI STILL MD 06/23/2022 Last Documented On 3 8:00AM ; [facility] Restless legs syndrome TELEHEALTH with LUCY STILL MD 06/23/2022 Last Documented On 3 8:00AM ; [facility] Generalized anxiety disorder TELEHEALTH with MET SHELDON STILL MD 12/23/2021 Last Documented On 2 7:20PM ; [facility] Major depression, recurrent TELEHEALTH with BRIONNA STILL MD 12/23/2021 Last Documented On 2 7:20PM ; [facility] Obsessive compulsive disorder TELEHEALTH with ME EMANI STILL MD 12/23/2021 Last Documented On 2 7:20PM ; [facility] Restless legs syndrome TELEHEALTH with LUCY STILL MD 12/23/2021 Last Documented On 2 7:20PM ; [facility] Generalized anxiety disorder TELEHEALTH with MET SHELDON STILL MD 06/16/2021 Last Documented On 2 10:34AM ; [facility] Major depression, recurrent TELEHEALTH with BRIONNA STILL MD 06/16/2021 Last Documented On 2 10:34AM ; [facility] Obsessive compulsive disorder TELEHEALTH with ME EMANI STILL MD 06/16/2021 Last Documented On 2 10:34AM ; [facility] Restless legs syndrome TELEHEALTH with LUCY STILL MD 06/16/2021 Last Documented On 2 10:34AM ; [facility] Generalized anxiety disorder * PHONE CALL with Nahed STILL MD 03/17/2021 Last Documented On 2 2:57PM ; [facility] Major depression, recurrent * PHONE CALL with ME EMANI STILL MD 03/17/2021 Last Documented On 2 2:57PM ; [facility] Obsessive compulsive disorder * PHONE CALL with LUCY STILL MD 03/17/2021 Last Documented On 2 2:57PM ; [facility] Restless legs syndrome * PHONE CALL with LUCY STILL MD 03/17/2021 Last Documented On 2 2:57PM ; [facility] Generalized anxiety disorder TELEHEALTH with MET SHELDON STILL MD 12/18/2020 Last Documented On 1 8:13AM ; [facility] Major depression, recurrent TELEHEALTH with BRIONNA STILL MD 12/18/2020 Last Documented On 1 8:13AM ; [facility] Obsessive compulsive disorder TELEHEALTH with ME EMANI STILL MD 12/18/2020 Last Documented On 1 8:13AM ; [facility] Restless legs syndrome TELEHEALTH with LUCY STILL MD 12/18/2020 Last Documented On 1 8:13AM ; [facility] Generalized anxiety disorder TELEHEALTH with MET SHELDON STILL MD 06/19/2020 Last Documented On 1 9:21AM ; [facility] Major depression, recurrent TELEHEALTH with BRIONNA STILL MD 06/19/2020 Last Documented On 1 9:21AM ; [facility] Obsessive compulsive disorder TELEHEALTH with ME EMANI STILL MD 06/19/2020 Last Documented On 1 9:21AM ; [facility] Restless legs syndrome TELEHEALTH with LUCY STILL MD 06/19/2020 Last Documented On 1 9:21AM ; [facility] Generalized anxiety disorder TELEHEALTH with MET SHELDON STILL MD 12/20/2019 Last Documented On 1 11:49PM ; [facility] Major depression, recurrent TELEHEALTH with BRIONNA STILL MD 12/20/2019 Last Documented On 1 11:49PM ; [facility] Obsessive compulsive disorder TELEHEALTH with ME EMANI STILL MD 12/20/2019 Last Documented On 1 11:49PM ; [facility] Restless legs syndrome TELEHEALTH with LUCY STILL MD 12/20/2019 Last Documented On 1 11:49PM ; [facility] Generalized anxiety disorder TELEHEALTH with MET SHELDON STILL MD 06/20/2019 Last Documented On 0 8:36AM ; [facility] Major depression, recurrent TELEHEALTH with BRIONNA STILL MD 06/20/2019 Last Documented On 0 8:36AM ; [facility] Obsessive compulsive disorder TELEHEALTH with ME EMANI STILL MD 06/20/2019 Last Documented On 0 8:36AM ; [facility] Restless legs syndrome TELEHEALTH with LUCY STILL MD 06/20/2019 Last Documented On 0 8:36AM ; [facility] Generalized anxiety disorder GENERAL OFF ICE VISIT with LUCY STILL MD 12/20/2018 Last Documented On 9 6:10PM ; [facility] Major depression, recurrent GENERAL OFFI CE VISIT with LUCY STILL MD 12/20/2018 Last Documented On 9 6:10PM ; [facility] Obsessive compulsive disorder GENERAL OF FICE VISIT with LUCY STILL MD 12/20/2018 Last Documented On 9 6:10PM ; [facility] Obstructive sleep apnea GENERAL OFFICE VISIT wit h LUCY STILL MD 12/20/2018 Last Documented On 9 6:10PM ; [facility] Generalized anxiety disorder GENERAL OFF ICE VISIT with LUYC STILL MD 06/29/2018 Last Documented On 9 7:45AM ; [facility] Major depression, recurrent GENERAL OFFI CE VISIT with LUCY STILL MD 06/29/2018 Last Documented On 9 7:45AM ; [facility] Obsessive compulsive disorder GENERAL OF FICE VISIT with LUCY STILL MD 06/29/2018 Last Documented On 9 7:45AM ; [facility] Obstructive sleep apnea GENERAL OFFICE VISIT wit h LUCY STILL MD 06/29/2018 Last Documented On 9 7:45AM ; [facility] Generalized anxiety disorder GENERAL OFF ICE VISIT with LUCY STILL MD 12/29/2017 Last Documented On 8 2:27PM ; [facility] Major depression, recurrent GENERAL OFFI CE VISIT with LUCY STILL MD 12/29/2017 Last Documented On 8 2:27PM ; [facility] Obsessive compulsive disorder GENERAL OF FICE VISIT with LUCY STILL MD 12/29/2017 Last Documented On 8 2:27PM ; [facility] Obstructive sleep apnea GENERAL OFFICE VISIT wit h LUCY STILL MD 12/29/2017 Last Documented On 8 2:27PM ; [facility] Generalized anxiety disorder GENERAL OFF ICE VISIT with LUCY STILL MD 06/29/2017 Last Documented On 8 7:12AM ; [facility] Major depression, recurrent GENERAL OFFI CE VISIT with LUCY STILL MD 06/29/2017 Last Documented On 8 7:12AM ; [facility] Obsessive compulsive disorder GENERAL OF FICE VISIT with LUCY STILL MD 06/29/2017 Last Documented On 8 7:12AM ; [facility] Obstructive sleep apnea GENERAL OFFICE VISIT wit LUCY STILL MD 06/29/2017 Last Documented On 8 7:12AM ; [facility] Major depression, recurrent * PHONE CALL with ME EMANI STILL MD 04/26/2017 Last Documented On 8 6:21PM ; [facility] Generalized anxiety disorder GENERAL OFF ICE VISIT with LUCY STILL MD 12/30/2016 Last Documented On 7 9:36AM ; [facility] Major depression, recurrent GENERAL OFFI CE VISIT with LUCY STILL MD 12/30/2016 Last Documented On 7 9:36AM ; [facility] Obsessive compulsive disorder GENERAL OF FICE VISIT with LUCY STILL MD 12/30/2016 Last Documented On 7 9:36AM ; [facility] Obstructive sleep apnea GENERAL OFFICE VISIT wit h LUCY STILL MD 12/30/2016 Last Documented On 7 9:36AM ; [facility] Generalized anxiety disorder GENERAL OFF ICE VISIT with LUCY STILL MD 06/29/2016 Last Documented On 7 12:21PM ; [facility] Major depression, recurrent GENERAL OFFI CE VISIT with LUCY STILL MD 06/29/2016 Last Documented On 7 12:21PM ; [facility] Obsessive compulsive disorder GENERAL OF FICE VISIT with LUCY STILL MD 06/29/2016 Last Documented On 7 12:21PM ; [facility] Obstructive sleep apnea GENERAL OFFICE VISIT wit h LUCY STILL MD 06/29/2016 Last Documented On 7 12:21PM ; [facility] Generalized anxiety disorder GENERAL OFF ICE VISIT with LUCY STILL MD 01/01/2016 Last Documented On 6 9:45AM ; [facility] Major depression, recurrent GENERAL OFFI CE VISIT with LUCY STILL MD 01/01/2016 Last Documented On 6 9:45AM ; [facility] Obsessive compulsive disorder GENERAL OF FICE VISIT with LUCY STILL MD 01/01/2016 Last Documented On 6 9:45AM ; [facility] Obstructive sleep apnea GENERAL OFFICE VISIT wit h LUCY STILL MD 01/01/2016 Last Documented On 6 9:45AM ; [facility] Generalized anxiety disorder GENERAL OFF ICE VISIT with LUCY STILL MD 07/01/2015 Last Documented On 6 7:59PM ; [facility] Major depression, recurrent GENERAL OFFI CE VISIT with LUCY STILL MD 07/01/2015 Last Documented On 6 7:59PM ; [facility] Obsessive compulsive disorder GENERAL OF FICE VISIT with LUCY STILL MD 07/01/2015 Last Documented On 6 7:59PM ; [facility] Obstruct[facility] sleep apnea GENERAL OFFICE VISIT wit h LUCY STILL MD 07/01/2015 Last Documented On 6 7:59PM ; [facility] Obstructive sleep apnea SECURE MESSAGE with CO EMANI STILL MD 03/31/2015 Last Documented On 6 1:09PM ; [facility] Generalized anxiety disorder GENERAL OFF ICE VISIT with LUCY STILL MD 01/01/2015 Last Documented On 5 6:30AM ; [facility] Major depression, recurrent GENERAL OFFI CE VISIT with LUCY STILL MD 01/01/2015 Last Documented On 5 6:30AM ; [facility] Obsessive compulsive disorder GENERAL OF FICE VISIT with LUCY STILL MD 01/01/2015 Last Documented On 5 6:30AM ; [facility] Obstructive sleep apnea GENERAL OFFICE VISIT wit h LUCY STILL MD 01/01/2015 Last Documented On 5 6:30AM ; [facility] Generalized anxiety disorder GENERAL OFF ICE VISIT with LUCY STILL MD 07/18/2014 Last Documented On 5 6:36PM ; [facility] Major depression, recurrent GENERAL OFFI CE VISIT with LUCY STILL MD 07/18/2014 Last Documented On 5 6:36PM ; [facility] Obsessive compulsive disorder GENERAL OF FICE VISIT with LUCY STILL MD 07/18/2014 Last Documented On 5 6:36PM ; [facility] Obstructive sleep apnea GENERAL OFFICE VISIT wit h LUCY STILL MD 07/18/2014 Last Documented On 5 6:36PM ; [facility] Generalized anxiety disorder GENERAL OFF ICE VISIT with LUCY STILL MD 01/18/2014 Last Documented On 4 6:16PM ; [facility] Major depression, recurrent GENERAL OFFI CE VISIT with LUCY STILL MD 01/18/2014 Last Documented On 4 6:16PM ; [facility] Obsessive compulsive disorder GENERAL OF FICE VISIT with LUCY STILL MD 01/18/2014 Last Documented On 4 6:16PM ; [facility] Obstructive sleep apnea GENERAL OFFICE VISIT wit h LUCY STILL MD 01/18/2014 Last Documented On 4 6:16PM ; [facility] Generalized anxiety disorder GENERAL OFF ICE VISIT with LUCY STILL MD 07/17/2013 Last Documented On 4 11:39PM ; [facility] Major depression, recurrent GENERAL OFFI CE VISIT with LUCY STILL MD 07/17/2013 Last Documented On 4 11:39PM ; [facility] Obsessive compulsive disorder GENERAL OF FICE VISIT with LUCY STILL MD 07/17/2013 Last Documented On 4 11:39PM ; [facility] Obstructive sleep apnea GENERAL OFFICE VISIT wit h LUCY STILL MD 07/17/2013 Last Documented On 4 11:39PM ; [facility] Generalized anxiety disorder GENERAL OFF ICE VISIT with LUCY STILL MD 01/17/2013 Last Documented On 3 7:21PM ; [facility] Major depression, recurrent GENERAL OFFI CE VISIT with LUCY STILL MD 01/17/2013 Last Documented On 3 7:21PM ; [facility] Obsessive compulsive disorder GENERAL OF FICE VISIT with LUCY STILL MD 01/17/2013 Last Documented On 3 7:21PM ; [facility] Obstructive sleep apnea GENERAL OFFICE VISIT wit h LUCY STILL MD 01/17/2013 Last Documented On 3 7:21PM ; [facility] Restless legs syndrome GENERAL OFFICE VISIT with LUCY STILL MD 01/17/2013 Last Documented On 3 7:21PM ; [facility] Generalized anxiety disorder GENERAL OFF ICE VISIT with LUCY STILL MD 07/19/2012 Last Documented On 3 5:41PM ; [facility] Major depression, recurrent GENERAL OFFI CE VISIT with LUCY STILL MD 07/19/2012 Last Documented On 3 5:41PM ; [facility] Obsessive compulsive disorder GENERAL OF FICE VISIT with LUCY STILL MD 07/19/2012 Last Documented On 3 5:41PM ; [facility] Obstructive sleep apnea GENERAL OFFICE VISIT wit h LUCY STILL MD 07/19/2012 Last Documented On 3 5:41PM ; [facility] Restless legs syndrome GENERAL OFFICE VISIT with LUCY STILL MD 07/19/2012 Last Documented On 3 5:41PM ; [facility] Instructions Includes: Instructions for all patient encounters Instructions to patient Lose weight Last Documented On 1 4:49PM ; [facility] Lose weight Last Documented On 1 4:56PM ; [facility] Education and Decision Aids were provided during visit for: Patient education about medi cation ---Education was given on medication(s) and diagnosis. I reviewed the risks, benefits and side effects of patient's medications Last Documented On 3 4:33PM ; [facility] Patient education about medi cation ---Education was given on medication(s) and diagnosis. I reviewed the risks, benefits and side effects of patient's medications. Pt reported no side effects with meds Last Documented On 2 7:18PM ; [facility] Patient education about medi cation --- I educated patient on medication(s) and diagnosis. I reviewed the risks, benefits and side effects of patient's medications Last Documented On 2 4:43PM ; [facility] Discussed calming techniques such as breathing exercises and other relaxation techniques Last Documented On 2 4:43PM ; [facility] Counseling for nutrition/rodrigo ght management provided Last Documented On 2 4:55PM ; [facility] Patient education about medi cation --- I educated patient on medication(s) and diagnosis. I reviewed the risks, benefits and side effects of patient's medications Last Documented On 1 4:34PM ; [facility] Discussed calming techniques such as breathing exercises and other relaxation techniques Last Documented On 1 4:34PM ; [facility] Counseling for nutrition/rodrigo ght management provided Last Documented On 1 4:49PM ; [facility] Patient education about medi cation --- I educated patient on medication(s) and diagnosis. I reviewed the risks, benefits and side effects of patient's medications Last Documented On 1 4:39PM ; [facility] Discussed calming techniques such as breathing exercises and other relaxation techniques Last Documented On 1 4:39PM ; [facility] Counseling for nutrition/rodrigo ght management provided Last Documented On 1 4:56PM ; [facility] Patient education about medi cation --- I educated patient on medication(s) and diagnosis. I reviewed the risks, benefits and side effects of patient's medications Last Documented On 0 4:36PM ; [facility] Discussed calming techniques such as breathing exercises and other relaxation techniques Last Documented On 0 4:36PM ; [facility] Counseling for nutrition/rodrigo ght management provided Last Documented On 0 4:51PM ; [facility] Patient education about a pr oper diet Last Documented On 0 8:27AM ; [facility] Patient education about medi cation --- I educated patient on medication(s) and diagnosis. I reviewed the risks, benefits and side effects of patient's medications Last Documented On 0 4:39PM ; [facility] Discussed calming techniques such as breathing exercises and other relaxation techniques Last Documented On 0 4:39PM ; [facility] Patient education about a pr oper diet Last Documented On 9 4:47PM ; [facility] Patient education about medi cation --- I educated patient on medication(s) and diagnosis. I reviewed the risks, benefits and side effects of patient's medications Last Documented On 9 4:34PM ; [facility] Discussed calming techniques such as breathing exercises and other relaxation techniques Last Documented On 9 4:34PM ; [facility] Patient education about a pr oper diet Last Documented On 9 4:52PM ; [facility] Patient education about medi cation --- I educated patient on medication(s) and diagnosis. I reviewed the risks, benefits and side effects of patient's medications Last Documented On 9 4:31PM ; [facility] Discussed calming techniques such as breathing exercises and other relaxation techniques Last Documented On 9 4:31PM ; [facility] Counseling for nutrition/rodrigo ght management provided Last Documented On 9 4:52PM ; [facility] Patient education about a pr oper diet Last Documented On 8 4:33PM ; [facility] Patient education about medi cation --- I educated patient on medication(s) and diagnosis. I reviewed the risks, benefits and side effects of patient's medications Last Documented On 8 4:32PM ; [facility] Counseling for nutrition/rodrigo ght management provided Last Documented On 8 2:20PM ; [facility] Discussed good sleep hygiene habits --was encouraged not to stay up late at night Last Documented On 8 2:20PM ; [facility] Patient education about medi cation --- I educated patient on medication(s) and diagnosis. I reviewed the risks, benefits and side effects of patient's medications Last Documented On 8 4:38PM ; [facility] Discussed calming techniques such as breathing exercises and other relaxation techniques Last Documented On 8 4:38PM ; [facility] Counseling for nutrition/rodrigo ght management provided Last Documented On 8 7:11AM ; [facility] Patient education about medi cation --- I educated patient on medication(s) and diagnosis. I reviewed the risks, benefits and side effects of patient's medications Last Documented On 7 4:32PM ; [facility] Discussed calming techniques such as breathing exercises and other relaxation techniques Last Documented On 7 4:32PM ; [facility] Counseling for nutrition/rodrigo ght management provided Last Documented On 7 8:56AM ; [facility] Patient education about medi cation --- I educated patient on medication(s) and diagnosis. I reviewed the risks, benefits and side effects of patient's medications Last Documented On 7 4:34PM ; [facility] Discussed calming techniques such as breathing exercises/meditation and other relaxation techniques Last Documented On 7 4:34PM ; [facility] Counseling for nutrition/rodrigo ght management provided Last Documented On 7 12:10PM ; [facility] Patient education about medi cation --- I educated patient on medication(s) and diagnosis. I reviewed the risks, benefits and side effects of patient's medications Last Documented On 6 4:32PM ; [facility] Discussed calming techniques such as breathing exercises/meditation and other relaxation techniques Last Documented On 6 4:32PM ; [facility] Counseling for nutrition/rodrigo ght management provided Last Documented On 6 9:43AM ; [facility] Patient education about medi cation --- I educated patient on medication(s) and diagnosis. I reviewed the risks, benefits and side effects of patient's medications Last Documented On 6 4:34PM ; [facility] Discussed calming techniques such as breathing exercises/meditation and other relaxation techniques Last Documented On 6 4:34PM ; [facility] Counseling for nutrition/rodrigo ght management provided Last Documented On 6 5:44PM ; [facility] Patient education about medi cation --- I educated patient on medication(s) and diagnosis. I reviewed the risks, benefits and side effects of patient's medications Last Documented On 5 2:03PM ; [facility] Discussed calming techniques such as breathing exercises/meditation and other relaxation techniques Last Documented On 5 2:03PM ; [facility] Counseling for nutrition/rodrigo ght management provided Last Documented On 5 6:24AM ; [facility] Discussed good sleep hygiene habits Last Documented On 5 6:24AM ; [facility] Patient education about medi cation --- I educated patient on medication(s) and diagnosis. I reviewed the risks, benefits and side effects of patient's medications Last Documented On 5 6:30PM ; [facility] Discussed calming techniques such as breathing exercises/meditation and other relaxation techniques Last Documented On 5 4:34PM ; [facility] Counseling for nutrition/rodrigo ght management provided Last Documented On 5 5:33PM ; [facility] Patient education about medi cation --- I educated patient on medication(s) and diagnosis. I reviewed the risks, benefits and side effects of patient's medications Last Documented On 4 6:15PM ; [facility] Discussed calming techniques such as breathing exercises/meditation and other relaxation techniques Last Documented On 4 4:38PM ; [facility] Counseling for nutrition/rodrigo ght management provided Last Documented On 4 6:15PM ; [facility] Patient education about medi cation --- I educated patient on medication(s) and diagnosis. I reviewed the risks, benefits and side effects of patient's medications Last Documented On 4 11:38PM ; [facility] Discussed calming techniques such as breathing exercises/meditation and other relaxation techniques Last Documented On 4 4:36PM ; [facility] Counseling for nutrition/rodrigo ght management provided Last Documented On 4 11:38PM ; [facility] Patient education about medi cation --- I educated patient on medication(s) and diagnosis Last Documented On 3 7:02PM ; [facility] Discussed calming techniques such as breathing exercises/meditation and other relaxation techniques Last Documented On 3 4:30PM ; [facility] Discussed calming techniques such as breathing exercises/meditation and other relaxation techniques Last Documented On 3 4:32PM ; [facility] Medical Equipment - Implanted Devices Includes: Current and historical Devices No Medical Equipment Recorded Medications Includes: Current and historical Medications Current Medications (continue as prescribed) Paxil 40 MG Oral Tablet 06/23/2022 Provider: BRIONNA STILL MD Diagnosis: Obsessive-compul sive disorder, unspecified TAKE 1 AND 1/2 TABLETS BY [facility] DAILY DIRECTED Last Documented On 06/23/2022 5:34PM By Yajaira Still MD ; [facility] Gemtesa 75 MG Oral Tablet 06/23/2022 Provider: Diagnosis: 1 tab daily Last Documented On 06/23/2022 4:50PM By ELISEO JOHNSTONA ; [facility] Januvia 100 MG Oral Tablet 10/02/2021 Provider: Diagnosis: 1 tab daily Last Documented On 12/23/2021 4:46PM By ELISEO JOHNSTONA ; [facility] FeroSul 325 (65 Fe) MG Oral Tablet 05/28/2021 Provid er: Diagnosis: 1 tab daily Last Documented On 06/16/2021 4:55PM By ELISEO BARCENAS ; [facility] EPINEPHrine 0.3 MG/0.3ML Injection Solution Auto-injec tor 2020 Provider: Diagnosis: use as directed Last Documented On 12/18/2020 4:48PM By ELISEO BARCENAS ; [facility] Pramipexole Dihydrochloride 1 MG Oral Tablet 06/06/2020 Provider: NICOLA Archibald Diagnosis: patient takes 0.75 mg at bedtime Last Documented On 06/19/2020 4:58PM By ELISEO BARCENAS ; [facility] Rosuvastatin Calcium 10 MG Oral Tablet 06/18/2019 Pr ovider: NICOLA LEE MD Diagnosis: one tablet daily Last Documented On 06/20/2019 4:49PM By JENNIFER CARMICHAEL ; [facility] Modafinil 200MG Oral Tablet 07/24/2018 Provider: LUCY STILL MD Diagnosis: Obstructive slee p apnea (adult) (pediatric) as directed -- 1 tab in am Last Documented On 07/24/2018 7:44AM By Yajaira Still MD ; [facility] Amphetamine-Dextroamphetamin e 30 MG Tablet 01/01/2016 Provider: LUCY STILL MD Diagnosis: Sleep apnea, unspecified as directed Take 1/2 tablet in am and 1/2 tab at 2: 30 pm Last Documented On 01/01/2016 5:30PM By Yajaira Still MD ; [facility] [place] Vitamin D-3 1000 UNIT Tablet 01/01/2015 Provider: Diagnosis: Last Documented On 01/01/2015 2:20PM By Yajaira Still MD ; [facility] Fish Oil 1200 MG OR CAPS 01/17/2013 Provider: Diagnosis: Last Documented On 3 4:44PM By VALENTINO BARCENAS ; [facility] metFORMIN HCl 1000 MG TABS 07/19/2012 Provider: Diagnosis: Last Documented On 3 4:51PM By VALENTINO GOLD ; [facility] Omeprazole 20 MG OR CPDR 03/08/2012 Provider: Diagnosis: Last Documented On 3 2:55PM By VALENTINO GOLD ; [facility] Suspended Medications busPIRone HCl 15 MG Oral Tablet 06/23/2022 Provider: LUCY STILL MD Diagnosis: Generalized anxi ety disorder One tablet twice a day Last Documented On 06/23/2022 5:36PM By Yajaira Still MD ; [facility] Past Medications on file Paxil 40 MG Oral Tablet 06/16/2021 - 06/23/2022 Provider: LUCY STILL MD Diagnosis: Obsessive-compul sive disorder, unspecified TAKE 1 AND 1/2 TABLETS BY [facility] DAILY DIRECTED Last Documented On 06/23/2022 5:34PM By Yajaira Still MD ; [facility] busPIRone HCl 15 MG Oral Tablet 06/16/2021 - 06/23/2022 Provider: LUCY STILL MD Diagnosis: Generalized anxi ety disorder One tablet twice a day Last Documented On 06/23/2022 5:36PM By Yajaira Still MD ; [facility] Myrbetriq 25 MG Oral Tablet Extended Release 24 Hour 06/06/2020 - 06/23/2022 Provider: NICOLA ESPINOZA MD Diagnosis: 1 tab daily Last Documented On 06/23/2022 4:37PM By ELISEO BARCENAS ; [facility] Paxil 40 MG Oral Tablet 03/19/2020 - 06/16/2021 Provider: LUCY STILL MD Diagnosis: Obsessive-compul sive disorder, unspecified TAKE 1 AND 1/2 TABLETS BY [facility] DAILY DIRECTED Last Documented On 06/16/2021 5:25PM By Yajaira Still MD ; [facility] Paxil 40 MG Oral Tablet 10/08/2019 - 03/19/2020 Provider: LUCY STILL MD Diagnosis: Obsessive-compul sive disorder, unspecified TAKE 1 AND 1/2 TABLETS BY [facility] DAILY DIRECTED Last Documented On 03/19/2020 9:52AM By Yajaira Still MD ; [facility] busPIRone HCl 15 MG Oral Tablet 07/11/2019 - 06/16/2021 Provider: LUCY STILL MD Diagnosis: Generalized anxi ety disorder One tablet twice a day Last Documented On 06/16/2021 5:27PM By Yajaira Still MD ; [facility] Paxil 40 MG Oral Tablet 04/18/2019 - 10/08/2019 Provider: LUCY STILL MD Diagnosis: Obsessive-compul sive disorder, unspecified TAKE 1 AND 1/2 TABLETS BY [facility] DAILY DIRECTED Last Documented On 10/08/2019 6:56PM By Yajaira Still MD ; [facility] busPIRone HCl 15 MG Oral Tablet 11/03/2018 - 06/20/2019 Provider: LUCY STILL MD Diagnosis: Generalized anxi ety disorder One tablet twice a day Last Documented On 07/11/2019 2:13PM By Yajaira Still MD ; [facility] Paxil 40 MG Oral Tablet 11/01/2018 - 04/18/2019 Provider: LUCY STILL MD Diagnosis: Obsessive-compul sive disorder, unspecified TAKE 1 AND 1/2 TABLETS BY [facility] DAILY DIRECTED Last Documented On 04/18/2019 9:34AM By Yajaira Still MD ; [facility] Paxil 40MG Oral Tablet 07/24/2018 - 11/01/2018 Provider: LUCY STILL MD Diagnosis: Obsessive-compul sive disorder, unspecified as directed --1 and 1/2 tab daily Last Documented On 9 10:14AM By Yajaira Still MD ; [facility] busPIRone HCl 15MG Oral Tablet 06/29/2018 - 11/03/2018 Provider: LUCY STILL MD Diagnosis: Generalized anxi ety disorder One tablet twice a day Last Documented On 9 10:39AM By Yajaira Still MD ; [facility] busPIRone HCl 7.5 MG OR TABS 03/17/2018 - 04/16/2018 P rovider: Diagnosis: Major depressive disorder, recurrent, moderate 2 tablets twice a day Last Documented On 03/17/2018 9:59AM By ELISEO BARCENAS ; [facility] BusPIRone HCl 7.5MG Oral Tablet 03/17/2018 - 12/20/2018 Provider: LUCY STILL MD Diagnosis: Major depressive disorder, recurrent, moderate as directed 2 tablets twice a day Last Documented On 12/20/2018 5:20PM By Yajaira Still MD ; [facility] Paxil 40MG Oral Tablet 12/30/2017 - 06/29/2018 Provider: LUCY STILL MD Diagnosis: Obsessive-compul sive disorder, unspecified as directed --1 and 1/2 tab daily Last Documented On 07/24/2018 7:44AM By Yajaira Still MD ; [facility] Modafinil 200MG Oral Tablet 12/30/2017 - 06/29/2018 Provider: LUCY STILL MD Diagnosis: Obstructive slee p apnea (adult) (pediatric) as directed -- 1 tab in am Last Documented On 07/24/2018 7:44AM By Yajaira Still MD ; [facility] Paxil 40MG Oral Tablet 12/29/2017 - 12/29/2017 Provider: LUCY TOMAS MD Diagnosis: Major depressive disorder, recurrent, moderate as directed --1 and 1/2 tab daily Last Documented On 12/30/2017 2:22PM By Yajaira Still MD ; [facility] BusPIRone HCl 15MG Oral Tablet 12/29/2017 - 06/29/2018 Provider: LUCY STILL MD Diagnosis: Generalized anxi ety disorder One tablet twice a day Last Documented On 06/29/2018 5:22PM By Yajaira Still MD ; [facility] Modafinil 200MG Oral Tablet 07/04/2017 - 12/29/2017 Provider: LUCY STILL MD Diagnosis: Obstructive slee p apnea (adult) (pediatric) as directed -- 1 tab in am - - given by Dr. Vela Last Documented On 12/30/2017 2:22PM By Yajaira Still MD ; [facility] PARoxetine HCl 40MG Oral Tablet 07/04/2017 - 11/01/2018 Provider: LUCY STILL MD Diagnosis: Major depressive disorder, recurrent, moderate One tablet daily Last Documented On 01/19/2019 5:20PM By JENNIFER CARMICHAEL ; [facility] BusPIRone HCl 15MG Oral Tablet 06/29/2017 - 12/29/2017 Provider: LUCY STILL MD Diagnosis: Generalized anxi ety disorder One tablet twice a day Last Documented On 12/29/2017 5:06PM By Yajaira Still MD ; [facility] PARoxetine HCl 40MG Oral Tablet 04/26/2017 - 06/29/2017 Provider: LUCY STILL MD Diagnosis: Major depressive disorder, recurrent, moderate One tablet daily Last Documented On 07/04/2017 7:07AM By Yajaira Still MD ; [facility] Paxil CR 37.5MG Oral Tablet Extended Release 24 Hour 01/01/2017 - 06/29/2017 Provider: LUCY STILL MD Diagnosis: Major depressive disorder, recurrent, unspecified Take 1 tablet by mouth twice a day Last Documented On 06/29/2017 4:59PM By Yajaira Still MD ; [facility] Modafinil 200MG Oral Tablet 01/01/2017 - 06/29/2017 Provider: LUCY STILL MD Diagnosis: Obstructive slee p apnea (adult) (pediatric) as directed -- 1 tab in am - - given by Dr. Vela Last Documented On 07/04/2017 7:07AM By Yajaira Still MD ; [facility] Oxybutynin Chloride 5MG Oral Tablet 01/01/2017 - 06/29 Provider: Diagnosis: Last Documented On 06/29/2017 4:59PM By Yajaira Still MD ; [facility] Tamsulosin HCl 0.4MG Oral Capsule 01/01/2017 - 018 Provider: Diagnosis: Last Documented On 06/29/2017 4:58PM By Yajaira Still MD ; [facility] BusPIRone HCl 15MG Oral Tablet 12/30/2016 - 06/29/2017 Provider: LUCY STILL MD Diagnosis: Generalized anxi ety disorder One tablet twice a day Last Documented On 06/29/2017 5:01PM By Yajaira Still MD ; [facility] Paxil CR 37.5MG Oral Tablet Extended Release 24 Hour 11/08/2016 - 12/30/2016 Provider: LUCY STILL MD Diagnosis: Major depressive disorder, recurrent, unspecified Take 1 tablet by mouth twice a day Last Documented On 01/01/2017 9:31AM By Yajaira Still MD ; [facility] Modafinil 200MG Oral Tablet 09/08/2016 - 12/30/2016 Provider: LUCY STILL MD Diagnosis: Obstructive slee p apnea (adult) (pediatric) as directed -- 1 tab at 2:30 pm -- given by Dr. Vela Last Documented On 01/01/2017 9:31AM By Yajaira Still MD ; [facility] Pramipexole Dihydrochloride 0.5MG Oral Tablet 09/08/2016 - 06/16/2021 Provider: LUCY STILL MD Diagnosis: Restless legs syndrome as directed 1 and 1/2 tabs a t bedtime --- given by Dr. Vela Last Documented On 06/16/2021 5:28PM By Yajaira Still MD ; [facility] BusPIRone HCl 15MG Oral Tablet 06/29/2016 - 12/30/2016 Provider: LUCY STILL MD Diagnosis: Generalized anxi ety disorder One tablet twice a day Last Documented On 12/30/2016 5:18PM By Yajaira Still MD ; [facility] Paxil CR 37.5MG Oral Tablet Extended Release 24 Hour 06/29/2016 - 11/08/2016 Provider: LUCY STILL MD Diagnosis: Major depressive disorder, recurrent, unspecified *BID - One tablet twice a day Last Documented On 11/08/2016 4:18PM By Yajaira Stlil MD ; [facility] Modafinil 200 MG Tablet 01/01/2016 - 06/29/2016 Provider: LUCY STILL MD Diagnosis: Obstructive slee p apnea (adult) (pediatric) as directed -- 1 tab at 2:30 pm -- given by Dr. Vela Last Documented On 7 12:20PM By Yajaira Still MD ; [facility] BusPIRone HCl 15 MG Tablet 01/01/2016 - 06/29/2016 Provider: LUCY STILL MD Diagnosis: Generalized anxi ety disorder One tablet twice a day Last Documented On 06/29/2016 6:22PM By Yajaira Still MD ; [facility] Paxil CR 37.5 MG Tablet, extended-release 24 hour 01/01/2016 - 06/29/2016 Provider: LUCY STILL MD Diagnosis: Major depressive disorder, recurrent, unspecified *BID - One tablet twice a day Last Documented On 06/29/2016 6:24PM By Yajaira Still MD ; [facility] Benadryl Allergy 25 MG Tablet 01/01/2016 - 06/29/2016 Provider: NICOLA LEE MD Diagnosis: Take as directed. As needed Last Documented On 7 4:52PM By AYDE SIMPSON LPN ; [facility] Paxil CR 37.5 MG Tablet Extended Release 24 Hour 12/12/2015 - 01/01/2016 Provider: LUCY STILL MD Diagnosis: Major depressive disorder, recurrent, unspecified *BID - One tablet twice a day Last Documented On 01/01/2016 5:25PM By Yajaira Still MD ; [facility] Modafinil 200 MG Tablet 12/03/2015 - 01/01/2016 Provid er: Diagnosis: 1 daily Last Documented On 01/01/2016 5:30PM By Yajaira Still MD ; [facility] BusPIRone HCl 15 MG Tablet 10/29/2015 - 01/01/2016 Provider: LUCY STILL MD Diagnosis: Generalized anxi ety disorder One tablet twice a day Last Documented On 01/01/2016 5:30PM By Yajaira Still MD ; [facility] Nuvigil 200 MG Tablet 07/01/2015 - 01/01/2016 Provider: LUCY STILL MD Diagnosis: Obstructive slee p apnea (adult) (pediatric) 1 tablet every morning --giv en discount voucher on 07/01/15 but was prescribed by Dr. Lee (PCP) Last Documented On 01/01/2016 4:58PM By Yajaira Still MD ; [facility] Paxil CR 37.5 MG Tablet Extended Release 24 Hour 07/01/2015 - 12/12/2015 Provider: LUCY STILL MD Diagnosis: Major depressive disorder, recurrent, unspecified *BID - One tablet twice a day Last Documented On 12/12/2015 3:07PM By Yajaira Still MD ; [facility] BusPIRone HCl 15 MG Tablet 07/01/2015 - 10/29/2015 Provider: LUCY STILL MD Diagnosis: Generalized anxi ety disorder One tablet twice a day Last Documented On 6 10:32AM By Yajaira Still MD ; [facility] Nuvigil 200 MG Tablet 06/05/2015 - 01/01/2016 Provider : Diagnosis: 1 tablet daily Last Documented On 6 4:44PM By AYDE SIMPSON LPN ; [facility] Modafinil 200 MG Tablet 03/31/2015 - 07/01/2015 Provider: LUCY STILL MD Diagnosis: Obstructive slee p apnea (adult) (pediatric) as directed --1 tab in am and 1 tab at noon Last Documented On 6 4:41PM By AYDE SIMPSON LPN ; [facility] Nuvigil 250 MG Tablet 03/31/2015 - 04/14/2015 Provider: LUCY TOMAS MD Diagnosis: Obstructive slee p apnea (adult) (pediatric) 1 tablet 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 03/31/15 Last Documented On 03/31/2015 1:00PM By Yajaira Still MD ; [facility] Paxil CR 37.5 MG Tablet, extended-release 24 hour 03/20/2015 - 07/01/2015 Provider: LUCY STILL MD Diagnosis: Major depressive disorder, recurrent, unspecified *BID - One tablet twice a day Last Documented On 07/01/2015 5:18PM By Yajaira Still MD ; [facility] BusPIRone HCl 15 MG Tablet 03/20/2015 - 07/01/2015 Provider: LUCY STILL MD Diagnosis: Generalized anxi ety disorder One tablet twice a day Last Documented On 07/01/2015 5:18PM By Yajaira Still MD ; [facility] Modafinil 200 MG Tablet 01/01/2015 - 07/01/2015 Provider: LUCY STILL MD Diagnosis: Obstructive slee p apnea (adult) (pediatric) as directed 2 in the morning -- refilled by Dr. Vela Last Documented On 6 4:42PM By AYDE SIMPSON LPN ; [facility] Paxil CR 37.5 MG Tablet Extended Release 24 Hour 01/01/2015 - 03/20/2015 Provider: LUCY STILL MD Diagnosis: Major depressive disorder, recurrent, unspecified *BID - One tablet twice a day Last Documented On 6 10:45AM By Yajaira Still MD ; [facility] BusPIRone HCl 15 MG Tablet 01/01/2015 - 03/20/2015 Provider: LUCY STILL MD Diagnosis: Generalized anxi ety disorder One tablet twice a day Last Documented On 6 10:45AM By Yajaira Still MD ; [facility] HM Vitamin B12 500 MCG Tablet 01/01/2015 - 07/01/2015 Provider: Diagnosis: Take 1 tablet by mouth daily Last Documented On 6 4:42PM By AYDE SIMPSON LPN ; [facility] HM Vitamin B12 1000 MCG Tablet Extended Release 01/01/2015 - 01/01/2016 Provider: Diagnosis: Last Documented On 01/01/2016 5:17PM By Yajaira Still MD ; [facility] Dialyvite Vitamin D 5000 5000 UNIT Capsule 01/01/2015 - 01/01/2015 Provider: Diagnosis: Take 1 capsule by mouth weekly Last Documented On 01/01/2015 2:21PM By Yajaira Still MD ; [facility] Amphetamine-Dextroamphetamin e 30 MG Tablet 01/01/2015 - 01/01/2016 Provider: GUSTAVO VELA MD Diagnosis: Sleep apnea, unspecified Take 1/2 tablet by mouth twice a day Last Documented On 01/01/2016 5:30PM By Yajaira Still MD ; [facility] Pramipexole Dihydrochloride 0.5 MG Tablet 01/01/2015 - 06/29/2016 Provider: LUCY STILL MD Diagnosis: Restless legs syndrome as directed 1 and 1/2 tabs a t bedtime --- given by Dr. Vela Last Documented On 7 12:20PM By Yajaira Still MD ; [facility] Paxil CR 37.5 MG Tablet Extended Release 24 Hour 12/13/2014 - 01/01/2015 Provider: LUCY STILL MD Diagnosis: Major depressive disorder, recurrent, unspecified *BID - One tablet twice a day Last Documented On 01/01/2015 2:42PM By Yajaira Still MD ; [facility] Modafinil 200 MG Tablet 07/29/2014 - 01/01/2015 Provider: LUCY STILL MD Diagnosis: OBSTRUCTIVE SLEE P APNEA as directed 2 in the morning -- refilled by Dr. Vela Last Documented On 01/01/2015 2:42PM By Yajaira Still MD ; [facility] BusPIRone HCl 15 MG Tablet 07/18/2014 - 01/01/2015 Provider: LUCY STILL MD Diagnosis: GENERALIZED ANXI ETY DIS One tablet twice a day Last Documented On 01/01/2015 2:42PM By Yajaira Still MD ; [facility] Paxil CR 37.5 MG Tablet, extended-release 24 hour 07/18/2014 - 12/13/2014 Provider: LUCY STILL MD Diagnosis: MAJOR DEPRESSION DISORDER/RECURRENT *BID - One tablet twice a day Last Documented On 12/13/2014 9:15AM By Yajaira Still MD ; [facility] busPIRone HCl 15 MG OR TABS 01/18/2014 - 07/18/2014 Provider: LUCY STILL MD Diagnosis: GENERALIZED ANXI ETY DIS Last Documented On 07/18/2014 5:08PM By Yajaira Still MD ; [facility] Paxil CR 37.5 MG OR TB24 01/18/2014 - 07/18/2014 Provider: LUCY TOMAS MD Diagnosis: MAJOR DEPRESSION DISORDER/RECURRENT refilled last 12/27/13 for 3 refills Last Documented On 07/18/2014 5:08PM By Yajaira Still MD ; [facility] Modafinil 200 MG OR TABS 01/18/2014 - 07/18/2014 Provider: LUCY STILL MD Diagnosis: OBSTRUCTIVE SLEE P APNEA 2 in the morning -- refilled by Dr. Vela Last Documented On 07/29/2014 6:34PM By Yajaira Still MD ; [facility] Zantac 75 75 MG OR TABS 07/17/2013 - 07/01/2015 Provid er: Diagnosis: Last Documented On 6 4:40PM By AYDE SIMPSON LPN ; [facility] Pramipexole Dihydrochloride 0.5 MG OR TABS 07/17/2013 - 01/01/2015 Provider: LUCY STILL MD Diagnosis: Restless Legs Syndrome 1 and 1/2 tabs at bedtime --- given by Dr. Vela Last Documented On 01/01/2015 2:42PM By Yajaira Still MD ; [facility] Paxil CR 37.5 MG OR TB24 07/17/2013 - 01/18/2014 Provider: LUCY TOMAS MD Diagnosis: MAJOR DEPRESSION DISORDER/RECURRENT Last Documented On 01/18/2014 5:37PM By Yajaira Still MD ; [facility] Modafinil 200 MG OR TABS 07/17/2013 - 01/18/2014 Provider: LUCY STILL MD Diagnosis: OBSTRUCTIVE SLEE P APNEA 2 in the morning Last Documented On 01/18/2014 5:37PM By Yajaira Stlil MD ; [facility] busPIRone HCl 15 MG OR TABS 07/17/2013 - 01/18/2014 Provider: LUCY STILL MD Diagnosis: GENERALIZED ANXI ETY DIS Last Documented On 01/18/2014 5:37PM By Yajaira Still MD ; [facility] ZyrTEC Allergy 10 MG OR TABS 07/17/2013 - 01/01/2016 P rovider: Diagnosis: Last Documented On 01/01/2016 5:16PM By Yajaira Still MD ; [facility] Paxil CR 37.5 MG OR TB24 01/17/2013 - 07/17/2013 Provider: LUCY TOMAS MD Diagnosis: MAJOR DEPRESSION DISORDER/RECURRENT Last Documented On 07/17/2013 5:23PM By Yajaira Still MD ; [facility] Modafinil 200 MG OR TABS 01/17/2013 - 07/17/2013 Provider: LUCY STILL MD Diagnosis: OBSTRUCTIVE SLEE P APNEA 2 in the morning Last Documented On 07/17/2013 5:23PM By Yajaira Still MD ; [facility] busPIRone HCl 15 MG OR TABS 01/17/2013 - 07/17/2013 Provider: LUCY STILL MD Diagnosis: GENERALIZED ANXI ETY DIS Last Documented On 07/17/2013 5:23PM By Yajaira Still MD ; [facility] Modafinil 200 MG OR TABS 07/19/2012 - 01/17/2013 Provider: LUCY STILL MD Diagnosis: OBSTRUCTIVE SLEE P APNEA 2 in the morning Last Documented On 01/17/2013 5:29PM By Yajaira Still MD ; [facility]

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
--- OUTSIDE RECORDS SUMMARY | 2024-06-13 18:51 | XMS_ITS | Clinical Summary ---
Author Organization [facility] Address [address] [place] [id number] Phone Care Team Providers Care Fnps Name Role Phone WILIAM PHILLIPS, LUCY JUNG Unavailable [phone] Reason for Visit and Chief Complaint * PHONE CALL Problems Includes: Problems addressed during this encounter and other active Problems Current Visit Onset Date Resolved Date Provider Conditio n Status Major Depression, Recurrent 07/19/2012 LUCY STILL MD Active Last Documented On 3 5:16PM ; [facility] Restless Legs Syndrome 07/19/2012 LUCY ALVAREZ MD Active Last Documented On 3 4:33PM ; [facility] Obsessive Compulsive Disorder 03/08/2012 BRADLEY STILL MD Active Last Documented On 0 10:00AM ; [facility] Generalized Anxiety Disorder 03/08/2012 LUCY STILL MD Active Last Documented On 3 2:58PM ; [facility] Obsessive Compulsive Disorder 03/08/2012 BRADLEY STILL MD Inactive Last Documented On 7 9:03PM ; [facility] Past Visits Onset Date Resolved Date Provider Condition Status Narcolepsy 10/05/2014 LUCY STILL MD Ac tive Last Documented On 5 6:20AM ; [facility] Diabetes Mellitus 07/19/2012 LUCY Oleary MD Active Last Documented On 3 4:47PM ; [facility] 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 Nahed STILL MD Active Last Documented On 3 5:05PM ; [facility] Gerd 03/08/2012 LUCY STILL MD Ac tive Last Documented On 3 2:55PM ; [facility] Hyperlipidemia 03/08/2012 LUCY Archibald Active Last Documented On 3 2:56PM ; [facility] Nephrolithiasis 03/08/2012 LUCY STILL MD Active Last Documented On 3 2:58PM ; [facility] Plan of Treatment No Plan of Treatment Recorded Assessments Includes: Assessments from this encounter Findings - Restless legs syndrome - Last Documented On 03/17/2021 2:57PM ; [facility] - Major depression, recurrent - Last Documented On 03/17/2021 2:57PM ; [facility] - Generalized anxiety disorder - Last Documented On 03/17/2021 2:57PM ; [facility] - Obsessive compulsive disorder - Last Documented On 03/17/2021 2:57PM ; [facility] Medical Equipment - Implanted Devices Includes: Current Devices No Medical Equipment Recorded Medications Includes: Medications discussed during this encounter and other current Medications Current Medications (continue as prescribed) Paxil 40 MG Oral Tablet 06/23/2022 Provider: BRIONNA STILL MD Diagnosis: Obsessive-compul sive disorder, unspecified TAKE 1 AND 1/2 TABLETS BY [facility] DAILY DIRECTED Last Documented On 06/23/2022 5:34PM By Yajaira Still MD ; [facility] Gemtesa 75 MG Oral Tablet 06/23/2022 Provider: Diagnosis: 1 tab daily Last Documented On 06/23/2022 4:50PM By ELISEO BARCENAS ; [facility] Januvia 100 MG Oral Tablet 10/02/2021 Provider: Diagnosis: 1 tab daily Last Documented On 12/23/2021 4:46PM By ELISEO BARCENAS ; [facility] FeroSul 325 (65 Fe) MG Oral Tablet 05/28/2021 Provid er: Diagnosis: 1 tab daily Last Documented On 06/16/2021 4:55PM By ELISEO BARCENAS ; [facility] EPINEPHrine 0.3 MG/0.3ML Injection Solution Auto-injec tor 2020 Provider: Diagnosis: use as directed Last Documented On 12/18/2020 4:48PM By ELISEO BARCENAS ; [facility] Pramipexole Dihydrochloride 1 MG Oral Tablet 06/06/2020 Provider: NICOLA Archibald Diagnosis: patient takes 0.75 mg at bedtime Last Documented On 06/19/2020 4:58PM By ELISEO BARCENAS ; [facility] Rosuvastatin Calcium 10 MG Oral Tablet 06/18/2019 Pr ovider: NICOLA ANAYA MD Diagnosis: one tablet daily Last Documented On 06/20/2019 4:49PM By JENNIFER CARMICHAEL ; [facility] Modafinil 200MG Oral Tablet 07/24/2018 Provider: LUCY STILL MD Diagnosis: Obstructive slee p apnea (adult) (pediatric) as directed -- 1 tab in am Last Documented On 07/24/2018 7:44AM By Yajaira Still MD ; [facility] Amphetamine-Dextroamphetamin e 30 MG Tablet 01/01/2016 Provider: LUCY STILL MD Diagnosis: Sleep apnea, unspecified as directed Take 1/2 tablet in am and 1/2 tab at 2: 30 pm Last Documented On 01/01/2016 5:30PM By Yajaira Still MD ; [facility] [place] Vitamin D-3 1000 UNIT Tablet 01/01/2015 Provider: Diagnosis: Last Documented On 01/01/2015 2:20PM By Yajaira Still MD ; [facility] Fish Oil 1200 MG OR CAPS 01/17/2013 Provider: Diagnosis: Last Documented On 3 4:44PM By VALENTINO BARCENAS ; [facility] metFORMIN HCl 1000 MG TABS 07/19/2012 Provider: Diagnosis: Last Documented On 3 4:51PM By VALENTINO GOLD ; [facility] Omeprazole 20 MG OR CPDR 03/08/2012 Provider: Diagnosis: Last Documented On 3 2:55PM By VALENTINO GOLD ; [facility] Suspended Medications busPIRone HCl 15 MG Oral Tablet 06/23/2022 Provider: LUCY STILL MD Diagnosis: Generalized anxi ety disorder One tablet twice a day Last Documented On 06/23/2022 5:36PM By Yajaira Still MD ; [facility] Past Medications on file busPIRone HCl 7.5 MG OR TABS 03/17/2018 - 04/16/2018 P rovider: Diagnosis: Major depressive disorder, recurrent, moderate 2 tablets twice a day Last Documented On 03/17/2018 9:59AM By ELISEO BARCENAS ; [facility] Nuvigil 250 MG Tablet 03/31/2015 - 04/14/2015 Provider: LUCY TOMAS MD Diagnosis: Obstructive slee p apnea (adult) (pediatric) 1 tablet every morning --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 Cipro Allergy 12/20/2018 Active Last Documented On 06/21/2023 4:56PM ; [facility] Note: Imported from external source. Cipro Allergy Hives / Urticaria 12/20/2018 R esolved Last Documented On 4:47PM ; [facility] Aspartame Allergy Skin Rashes / Eruption of skin 06/29/2018 Active Last Documented On 06/21/2023 4:56PM ; [facility] Note: Imported from external source. Encounters Encounter Provider Location Date Check-In Time Check-Out Time Diagnosis * PHONE CALL LUCY STILL MD [facility] 03/17/19 22 2:40PM 11:59PM Major Depression, Recurrent,Gene ralized Anxiety Disorder,Obses sive Compulsive Disorder,Restl ess Legs Syndrome Insurance Includes: Active Insurance Policies Plan Name Member ID Group # Subscriber Relationship Effect refugio Dates 1 - [facility] [id number] MARYAM MUNOZ 03/10/2020 - Unknown Clinical Notes Includes: Clinical Notes from this encounter No Clinical Notes Recorded
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
--- OUTSIDE RECORDS SUMMARY | 2024-06-13 18:51 | XMS_ITS ---
Author Organization [facility] Address [address] [place] [address] Phone Care Team Providers Care Rn Testing Name Role Phone WILIAM PHILLIPS, LUCY JUNG Unavailable [phone] Problems Includes: Active, inactive, and resolved Problems All Visits Onset Date Resolved Date Provider Condition S tatus Narcolepsy 10/05/2014 Active Last Documented On 3 5:48PM ; [facility] Diabetes Mellitus 07/19/2012 Active Last Documented On 3 5:45PM ; [facility] 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 Last Documented On 3 5:45PM ; [facility] Major Depression, Recurrent 07/19/2012 Active Last Documented On 3 5:45PM ; [facility] Restless Legs Syndrome 07/19/2012 Ac tive Last Documented On 3 5:45PM ; [facility] Obsessive Compulsive Disorder 03/08/2012 Active Last Documented On 3 5:50PM ; [facility] Generalized Anxiety Disorder 03/08/2012 Active Last Documented On 3 5:42PM ; [facility] Gerd 03/08/2012 Active Last Documented On 3 5:42PM ; [facility] Hyperlipidemia 03/08/2012 Active Last Documented On 3 5:42PM ; [facility] Obsessive Compulsive Disorder 03/08/2012 Inactive Last Documented On 3 5:42PM ; [facility] Nephrolithiasis 03/08/2012 Active Last Documented On 3 5:42PM ; [facility] Plan of Treatment Future Appointments Date Time Location Provi conrad TELEHEALTH ADULT PSYCH ESTABLISHED 06/20/2024 4:40PM [facility] STILL MD Last Documented On 4 5:56PM ; [facility] Education and Decision Aids were provided during visit for: Discussed good sleep hygiene habits Last Documented On 3 6:40PM ; [facility] Assessments Includes: Assessments for all patient encounters Findings Encounter Date Generalized anxiety disorder TELEHEALTH ADULT PSYCH ESTABLISHED with LUCY STILL MD 06/21/2023 Last Documented On 4 8:45PM ; [facility] Major depression, recurrent TELEHEALTH A DULT PSYCH ESTABLISHED with LUCY STILL MD 06/21/2023 Last Documented On 4 8:45PM ; [facility] Narcolepsy TELEHEALTH ADULT PSYCH ESTABLISH ED with LUCY STILL MD 06/21/2023 Last Documented On 4 8:45PM ; [facility] Obsessive compulsive disorder TELEHEALTH ADULT PSYCH ESTABLISHED with LUCY STILL MD 06/21/2023 Last Documented On 4 8:45PM ; [facility] Obstructive sleep apnea TELEHEALTH ADULT PSYCH ESTABLISHED with LUCY STILL MD 06/21/2023 Last Documented On 4 8:45PM ; [facility] Restless legs syndrome TELEHEALTH ADULT PSYCH ESTABLISHED with LUCY STILL MD 06/21/2023 Last Documented On 4 8:45PM ; [facility] Generalized anxiety disorder TELEHEALTH ADULT PSYCH ESTABLISHED with LUCY STILL MD 12/23/2022 Last Documented On 3 12:30PM ; [facility] Major depression, recurrent TELEHEALTH A DULT PSYCH ESTABLISHED with LUCY STILL MD 12/23/2022 Last Documented On 3 12:30PM ; [facility] Narcolepsy TELEHEALTH ADULT PSYCH ESTABLISH ED with LUCY STILL MD 12/23/2022 Last Documented On 3 12:30PM ; [facility] Obsessive compulsive disorder TELEHEALTH ADULT PSYCH ESTABLISHED with LUCY STILL MD 12/23/2022 Last Documented On 3 12:30PM ; [facility] Obstructive sleep apnea TELEHEALTH ADULT PSYCH ESTABLISHED with LUCY STILL MD 12/23/2022 Last Documented On 3 12:30PM ; [facility] Restless legs syndrome TELEHEALTH ADULT PSYCH ESTABLISHED with LUCY STILL MD 12/23/2022 Last Documented On 3 12:30PM ; [facility] Instructions Includes: Instructions for all patient encounters [...] 06/21/2023 5:42PM By Yajaira Still MD ; [facility] busPIRone HCl 15 MG Oral Tablet 06/20/2023 Provider: LUCY STILL MD Diagnosis: Generalized anxi ety disorder One tablet twice a day Last Documented On 06/20/2023 10:49AM By Yajaira Still MD ; [facility] Pramipexole Dihydrochloride 1 MG Oral Tablet 04/20/2023 Provider: NICOLA Archibald Diagnosis: 1 and 1/2 tab in the evening Last Documented On 06/21/2023 5:48PM By Yajaira Still MD ; [facility] Fish Oil 1200 MG Oral Capsule 12/23/2022 Provider: Diagnosis: 3 caps daily Last Documented On 12/23/2022 4:48PM By ELISEO BARCENAS ; [facility] oxyBUTYnin Chloride ER 15 MG Oral Tablet Extended Release 24 Hour 11/15/2022 Provider: RAFITA RUGGIERO MD Diagnosis: 1 tab daily Last Documented On 12/23/2022 4:48PM By ELISEO BARCENAS ; [facility] Januvia 100 MG OR TABS 10/02/2021 Provider: Diagnosis: 1 tab daily Last Documented On 07/03/2022 5:27PM By ELISEO BARCENAS ; [facility] FeroSul 325 (65 Fe) MG OR TABS 05/28/2021 Provider: Diagnosis: 1 tab daily Last Documented On 07/03/2022 5:27PM By ELISEO BARCENAS ; [facility] EPINEPHrine 0.3 MG/0.3ML IJ SOAJ 2020 Provider : Diagnosis: use as directed Last Documented On 07/03/2022 5:27PM By ELISEO BARCENAS ; [facility] Rosuvastatin Calcium 10 MG OR TABS 06/18/2019 Provid er: Diagnosis: one tablet daily Last Documented On 07/03/2022 5:27PM By JENNIFER CARMICHAEL ; [facility] Modafinil 200 MG OR TABS 07/24/2018 Provider: MET SHELDON STILL MD Diagnosis: Obstructive slee p apnea (adult) (pediatric) as directed -- 1 tab in am Last Documented On 07/03/2022 5:27PM By Yajaira Still MD ; [facility] Amphetamine-Dextroamphetamin e 30 MG OR TABS 01/01/2016 Provider: LUCY STILL MD Diagnosis: Sleep apnea, unspecified as directed Take 1/2 tablet in am and 1/2 tab at 2: 30 pm Last Documented On 07/03/2022 5:27PM By Yajaira Still MD ; [facility] PA Vitamin D-3 25 MCG (1000 UT) OR TABS 01/01/2015 P rovider: Diagnosis: Last Documented On 07/03/2022 5:27PM By Yajaira Still MD ; [facility] metFORMIN HCl 1000 MG TABS 07/19/2012 Provider: Diagnosis: Last Documented On 07/03/2022 5:27PM By VALENTINO GOLD ; [facility] Omeprazole 20 MG OR CPDR 03/08/2012 Provider: Diagnosis: Last Documented On 07/03/2022 5:27PM By VALENTINO GOLD ; [facility] Past Medications on file Paxil 40 MG OR TABS 06/23/2022 - 06/21/2023 Provider: LUCY STILL MD Diagnosis: Obsessive-compul sive disorder, unspecified TAKE 1 AND 1/2 TABLETS BY [facility] DAILY DIRECTED Last Documented On 06/21/2023 5:42PM By Yajaira Still MD ; [facility] busPIRone HCl 15 MG OR TABS 06/23/2022 - 06/20/2023 Provider: LUCY STILL MD Diagnosis: Generalized anxi ety disorder One tablet twice a day Last Documented On 06/20/2023 10:48AM By Yajaira Still MD ; [facility] Gemtesa 75 MG OR TABS 06/23/2022 - 12/23/2022 Provider : Diagnosis: 1 tab daily Last Documented On 12/23/2022 4:48PM By ELISEO BARCENAS ; [facility] busPIRone HCl 15 MG OR TABS 06/16/2021 - 06/23/2022 Provider: LUCY STILL MD Diagnosis: Generalized anxi ety disorder One tablet twice a day Last Documented On 07/03/2022 5:27PM By Yajaira Still MD ; [facility] Paxil 40 MG OR TABS 06/16/2021 - 06/23/2022 Provider: LUCY STILL MD Diagnosis: Obsessive-compul sive disorder, unspecified TAKE 1 AND 1/2 TABLETS BY [facility] DAILY DIRECTED Last Documented On 07/03/2022 5:27PM By Yajaira Still MD ; [facility] Myrbetriq 25 MG OR TB24 06/06/2020 - 06/23/2022 Provid er: Diagnosis: 1 tab daily Last Documented On 07/03/2022 5:27PM By ELISEO BARCENAS ; [facility] Pramipexole Dihydrochloride 1 MG OR TABS 06/06/2020 - 06/21/2023 Provider: Diagnosis: patient takes 0.75 mg at bedtime Last Documented On 06/21/2023 5:48PM By Yajaira Still MD ; [facility] Paxil 40 MG OR TABS 03/19/2020 - 06/16/2021 Provider: LUCY STILL MD Diagnosis: Obsessive-compul sive disorder, unspecified TAKE 1 AND 1/2 TABLETS BY [facility] DAILY DIRECTED Last Documented On 07/03/2022 5:27PM By Yajaira Still MD ; [facility] Paxil 40 MG OR TABS 10/08/2019 - 03/19/2020 Provider: LUCY STILL MD Diagnosis: Obsessive-compul sive disorder, unspecified TAKE 1 AND 1/2 TABLETS BY MO [facility] DAILY DIRECTED Last Documented On 07/03/2022 5:27PM By Yajaira Still MD ; [facility] busPIRone HCl 15 MG OR TABS 07/11/2019 - 06/16/2021 Provider: LUCY STILL MD Diagnosis: Generalized anxi ety disorder One tablet twice a day Last Documented On 07/03/2022 5:27PM By Yajaira Still MD ; [facility] Paxil 40 MG OR TABS 04/18/2019 - 10/08/2019 Provider: LUCY STILL MD Diagnosis: Obsessive-compul sive disorder, unspecified TAKE 1 AND 1/2 TABLETS BY MO [facility] DAILY DIRECTED Last Documented On 07/03/2022 5:27PM By Yajaira Still MD ; [facility] busPIRone HCl 15 MG OR TABS 11/03/2018 - 06/20/2019 Provider: LUCY STILL MD Diagnosis: Generalized anxi ety disorder One tablet twice a day Last Documented On 07/03/2022 5:27PM By Yajaira Still MD ; [facility] Paxil 40 MG OR TABS 11/01/2018 - 04/18/2019 Provider: LUCY STILL MD Diagnosis: Obsessive-compul sive disorder, unspecified TAKE 1 AND 1/2 TABLETS BY MO [facility] DAILY DIRECTED Last Documented On 07/03/2022 5:27PM By Yajaira Still MD ; [facility] Paxil 40 MG OR TABS 07/24/2018 - 11/01/2018 Provider: LUCY STILL MD Diagnosis: Obsessive-compul sive disorder, unspecified as directed --1 and 1/2 tab daily Last Documented On 07/03/2022 5:27PM By Yajaira Still MD ; [facility] busPIRone HCl 15 MG OR TABS 06/29/2018 - 11/03/2018 Provider: LUCY STILL MD Diagnosis: Generalized anxi ety disorder One tablet twice a day Last Documented On 07/03/2022 5:27PM By Yajaira Still MD ; [facility] busPIRone HCl 7.5 MG OR TABS 03/17/2018 - 12/20/2018 Provider: LUCY STILL MD Diagnosis: Major depressive disorder, recurrent, moderate as directed 2 tablets twice a day Last Documented On 07/03/2022 5:27PM By Yajaira Still MD ; [facility] busPIRone HCl 7.5 MG OR TABS 03/17/2018 - 04/16/2018 P leathader: Diagnosis: Major depressive disorder, recurrent, moderate 2 tablets twice a day Last Documented On 07/03/2022 5:27PM By ELISEO BARCENAS ; [facility] Modafinil 200 MG OR TABS 12/30/2017 - 06/29/2018 Provider: LUCY STILL MD Diagnosis: Obstructive slee p apnea (adult) (pediatric) as directed -- 1 tab in am Last Documented On 07/03/2022 5:27PM By Yajaira Still MD ; [facility] Paxil 40 MG OR TABS 12/30/2017 - 06/29/2018 Provider: LUCY STILL MD Diagnosis: Obsessive-compul sive disorder, unspecified as directed --1 and 1/2 tab daily Last Documented On 07/03/2022 5:27PM By Yajaira Still MD ; [facility] Paxil 40 MG OR TABS 12/29/2017 - 12/29/2017 Provider: LUCY STILL MD Diagnosis: Major depressive disorder, recurrent, moderate as directed --1 and 1/2 tab daily Last Documented On 07/03/2022 5:27PM By Yajaira Still MD ; [facility] busPIRone HCl 15 MG OR TABS 12/29/2017 - 06/29/2018 Provider: LUCY STILL MD Diagnosis: Generalized anxi ety disorder One tablet twice a day Last Documented On 07/03/2022 5:27PM By Yajaira Still MD ; [facility] PARoxetine HCl 40 MG OR TABS 07/04/2017 - 11/01/2018 Provider: LUCY STILL MD Diagnosis: Major depressive disorder, recurrent, moderate One tablet daily Last Documented On 07/03/2022 5:27PM By Yajaira Still MD ; [facility] Modafinil 200 MG OR TABS 07/04/2017 - 12/29/2017 Provider: LUCY STILL MD Diagnosis: Obstructive slee p apnea (adult) (pediatric) as directed -- 1 tab in am - - given by Dr. Conroy Last Documented On 07/03/2022 5:27PM By Yajaira Still MD ; [facility] busPIRone HCl 15 MG OR TABS 06/29/2017 - 12/29/2017 Provider: LUCY STILL MD Diagnosis: Generalized anxi ety disorder One tablet twice a day Last Documented On 07/03/2022 5:27PM By Yajaira Still MD ; [facility] PARoxetine HCl 40 MG OR TABS 04/26/2017 - 06/29/2017 Provider: LUCY STILL MD Diagnosis: Major depressive disorder, recurrent, moderate One tablet daily Last Documented On 07/03/2022 5:27PM By Yajaira Still MD ; [facility] Modafinil 200 MG OR TABS 01/01/2017 - 06/29/2017 Provider: LUCY STILL MD Diagnosis: Obstructive slee p apnea (adult) (pediatric) as directed -- 1 tab in am - - given by Dr. Conroy Last Documented On 07/03/2022 5:27PM By Yajaira Still MD ; [facility] Tamsulosin HCl 0.4 MG OR CAPS 01/01/2017 - 06/29/2017 Provider: Diagnosis: Last Documented On 07/03/2022 5:27PM By Yajaira Still MD ; [facility] oxyBUTYnin Chloride 5 MG OR TABS 01/01/2017 - 06/30/19 Provider: Diagnosis: Last Documented On 07/03/2022 5:27PM By aYjaira Still MD ; [facility] Paxil CR 37.5 MG OR TB24 01/01/2017 - 06/29/2017 Provider: LUCY TOMAS MD Diagnosis: Major depressive disorder, recurrent, unspecified Take 1 tablet by mouth twice a day Last Documented On 07/03/2022 5:27PM By Yajaira Still MD ; [facility] busPIRone HCl 15 MG OR TABS 12/30/2016 - 06/29/2017 Provider: LUCY STILL MD Diagnosis: Generalized anxi ety disorder One tablet twice a day Last Documented On 07/03/2022 5:27PM By Yajaira Still MD ; [facility] Paxil CR 37.5 MG OR TB24 11/08/2016 - 12/30/2016 Provider: LUCY TOMAS MD Diagnosis: Major depressive disorder, recurrent, unspecified Take 1 tablet by mouth twice a day Last Documented On 07/03/2022 5:27PM By Yajaira Still MD ; [facility] Pramipexole Dihydrochloride 0.5 MG OR TABS 09/08/2016 - 06/16/2021 Provider: LUCY STILL MD Diagnosis: Restless legs syndrome as directed 1 and 1/2 tabs a t bedtime --- given by Dr. Conroy Last Documented On 07/03/2022 5:27PM By Yajaira Still MD ; [facility] Modafinil 200 MG OR TABS 09/08/2016 - 12/30/2016 Provider: LUCY STILL MD Diagnosis: Obstructive slee p apnea (adult) (pediatric) as directed -- 1 tab at 2:30 pm -- given by Dr. Conroy Last Documented On 07/03/2022 5:27PM By Yajaira Still MD ; [facility] Paxil CR 37.5 MG OR TB24 06/29/2016 - 11/08/2016 Provider: LUCY TOMAS MD Diagnosis: Major depressive disorder, recurrent, unspecified *BID - One tablet twice a day Last Documented On 07/03/2022 5:27PM By Yajaira Still MD ; [facility] busPIRone HCl 15 MG OR TABS 06/29/2016 - 12/30/2016 Provider: LUCY STILL MD Diagnosis: Generalized anxi ety disorder One tablet twice a day Last Documented On 07/03/2022 5:27PM By Yajaira Still MD ; [facility] Benadryl Allergy 25 MG OR TABS 01/01/2016 - 06/29/2016 Provider: Diagnosis: Take as directed. As needed Last Documented On 07/03/2022 5:27PM By AYDE SIMPSON LPN ; [facility] Paxil CR 37.5 MG OR TB24 01/01/2016 - 06/29/2016 Provider: LUCY TOMAS MD Diagnosis: Major depressive disorder, recurrent, unspecified *BID - One tablet twice a day Last Documented On 07/03/2022 5:27PM By Yajaira Still MD ; [facility] Modafinil 200 MG OR TABS 01/01/2016 - 06/29/2016 Provider: LUCY STILL MD Diagnosis: Obstructive slee p apnea (adult) (pediatric) as directed -- 1 tab at 2:30 pm -- given by Dr. Conroy Last Documented On 07/03/2022 5:27PM By Yajaira Still MD ; [facility] busPIRone HCl 15 MG OR TABS 01/01/2016 - 06/29/2016 Provider: LUCY STILL MD Diagnosis: Generalized anxi ety disorder One tablet twice a day Last Documented On 07/03/2022 5:27PM By Yajaira Still MD ; [facility] Paxil CR 37.5 MG OR TB24 12/12/2015 - 01/01/2016 Provider: LUCY TOMAS MD Diagnosis: Major depressive disorder, recurrent, unspecified *BID - One tablet twice a day Last Documented On 07/03/2022 5:27PM By Yajaira Still MD ; [facility] Modafinil 200 MG OR TABS 12/03/2015 - 01/01/2016 Provi conrad: Diagnosis: 1 daily Last Documented On 07/03/2022 5:27PM By AYDE SIMPSON LPN ; [facility] busPIRone HCl 15 MG OR TABS 10/29/2015 - 01/01/2016 Provider: LUCY STILL MD Diagnosis: Generalized anxi ety disorder One tablet twice a day Last Documented On 07/03/2022 5:27PM By Yajaira Still MD ; [facility] Nuvigil 200 MG OR TABS 07/01/2015 - 01/01/2016 Provider: LUCY STILL MD Diagnosis: Obstructive slee p apnea (adult) (pediatric) 1 tablet every morning --giv en discount voucher on 07/01/15 but was prescribed by Dr. Lee (PCP) Last Documented On 07/03/2022 5:27PM By Yajaira Still MD ; [facility] busPIRone HCl 15 MG OR TABS 07/01/2015 - 10/29/2015 Provider: LUCY STILL MD Diagnosis: Generalized anxi ety disorder One tablet twice a day Last Documented On 07/03/2022 5:27PM By Yajaira Still MD ; [facility] Paxil CR 37.5 MG OR TB24 07/01/2015 - 12/12/2015 Provider: LUCY TOMAS MD Diagnosis: Major depressive disorder, recurrent, unspecified *BID - One tablet twice a day Last Documented On 07/03/2022 5:27PM By Yajaira Still MD ; [facility] Nuvigil 200 MG OR TABS 06/05/2015 - 01/01/2016 Provide r: Diagnosis: 1 tablet daily Last Documented On 07/03/2022 5:27PM By AYDE SIMPSON LPN ; [facility] Modafinil 200 MG OR TABS 03/31/2015 - 07/01/2015 Provider: LUCY STILL MD Diagnosis: Obstructive slee p apnea (adult) (pediatric) as directed --1 tab in am and 1 tab at noon Last Documented On 07/03/2022 5:27PM By Yajaira Still MD ; [facility] Nuvigil 250 MG OR TABS 03/31/2015 - 04/14/2015 Provider: LUCY TOMAS MD Diagnosis: Obstructive slee p apnea (adult) (pediatric) 1 tablet every morning --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 Last Documented On 07/03/2022 5:27PM By Yajaira Still MD ; [facility] busPIRone HCl 15 MG OR TABS 03/20/2015 - 07/01/2015 Provider: LUCY STILL MD Diagnosis: Generalized anxi ety disorder One tablet twice a day Last Documented On 07/03/2022 5:27PM By Yajaira Still MD ; [facility] Paxil CR 37.5 MG OR TB24 03/20/2015 - 07/01/2015 Provider: LUCY TOMAS MD Diagnosis: Major depressive disorder, recurrent, unspecified *BID - One tablet twice a day Last Documented On 07/03/2022 5:27PM By Yajaira Still MD ; [facility] HM Vitamin B12 500 MCG OR TABS 01/01/2015 - 07/01/2015 Provider: Diagnosis: Take 1 tablet by mouth daily Last Documented On 07/03/2022 5:27PM By AYDE SIMPSON LPN ; [facility] Amphetamine-Dextroamphetamin e 30 MG OR TABS 01/01/2015 - 01/01/2016 Provider: Diagnosis: Sleep apnea, unspecified Take 1/2 tablet by mouth twice a day Last Documented On 07/03/2022 5:27PM By AYDE SIMPSON LPN ; [facility] Pramipexole Dihydrochloride 0.5 MG OR TABS 01/01/2015 - 06/29/2016 Provider: LUCY STILL MD Diagnosis: Restless legs syndrome as directed 1 and 1/2 tabs a t bedtime --- given by Dr. Conroy Last Documented On 07/03/2022 5:27PM By Yajaira Still MD ; [facility] busPIRone HCl 15 MG OR TABS 01/01/2015 - 03/20/2015 Provider: LUCY STILL MD Diagnosis: Generalized anxi ety disorder One tablet twice a day Last Documented On 07/03/2022 5:27PM By Yajaira Still MD ; [facility] Paxil CR 37.5 MG OR TB24 01/01/2015 - 03/20/2015 Provider: LUCY TOMAS MD Diagnosis: Major depressive disorder, recurrent, unspecified *BID - One tablet twice a day Last Documented On 07/03/2022 5:27PM By Yajaira Still MD ; [facility] Modafinil 200 MG OR TABS 01/01/2015 - 07/01/2015 Provider: LUCY STILL MD Diagnosis: Obstructive slee p apnea (adult) (pediatric) as directed 2 in the morning -- refilled by Dr. Conroy Last Documented On 07/03/2022 5:27PM By Yajaira Still MD ; [facility] Dialyvite Vitamin D 5000 125 MCG (5000 UT) OR CAPS 01/01/2015 - 01/01/2015 Provider: Diagnosis: Take 1 capsule by mouth weekly Last Documented On 07/03/2022 5:27PM By AYDE SIMPSON LPN ; [facility] HM Vitamin B12 1000 MCG OR TBCR 01/01/2015 - 6 Provider: Diagnosis: Last Documented On 07/03/2022 5:27PM By Yajaira Still MD ; [facility] Paxil CR 37.5 MG OR TB24 12/13/2014 - 01/01/2015 Provider: LUCY TOMAS MD Diagnosis: Major depressive disorder, recurrent, unspecified *BID - One tablet twice a day Last Documented On 07/03/2022 5:27PM By Yajaira Still MD ; [facility] Modafinil 200 MG OR TABS 07/29/2014 - 01/01/2015 Provider: LUCY STILL MD Diagnosis: OBSTRUCTIVE SLEE P APNEA as directed 2 in the morning -- refilled by Dr. Conroy Last Documented On 07/03/2022 5:27PM By Yajaira Still MD ; [facility] Paxil CR 37.5 MG OR TB24 07/18/2014 - 12/13/2014 Provider: LUCY TOMAS MD Diagnosis: MAJOR DEPRESSION DISORDER/RECURRENT *BID - One tablet twice a day Last Documented On 07/03/2022 5:27PM By Yajaira Still MD ; [facility] busPIRone HCl 15 MG OR TABS 07/18/2014 - 01/01/2015 Provider: LUCY STILL MD Diagnosis: GENERALIZED ANXI ETY DIS One tablet twice a day Last Documented On 07/03/2022 5:27PM By Yajaira Still MD ; [facility] Modafinil 200 MG OR TABS 01/18/2014 - 07/18/2014 Provider: LUCY STILL MD Diagnosis: OBSTRUCTIVE SLEE P APNEA 2 in the morning -- refilled by Dr. Conroy Last Documented On 07/03/2022 5:27PM By Yajaira Still MD ; [facility] Paxil CR 37.5 MG OR TB24 01/18/2014 - 07/18/2014 Provider: LUCY TOMAS MD Diagnosis: MAJOR DEPRESSION DISORDER/RECURRENT refilled last 12/27/13 for 3 refills Last Documented On 07/03/2022 5:27PM By Yajaira Still MD ; [facility] busPIRone HCl 15 MG OR TABS 01/18/2014 - 07/18/2014 Provider: LUCY STILL MD Diagnosis: GENERALIZED ANXI ETY DIS Last Documented On 07/03/2022 5:27PM By Yajaira Still MD ; [facility] Pramipexole Dihydrochloride 0.5 MG OR TABS 07/17/2013 - 01/01/2015 Provider: LUCY STILL MD Diagnosis: Restless Legs Syndrome 1 and 1/2 tabs at bedtime --- given by Dr. Conroy Last Documented On 07/03/2022 5:27PM By Yajaira Still MD ; [facility] Zantac 75 75 MG OR TABS 07/17/2013 - 07/01/2015 Provid er: Diagnosis: Last Documented On 07/03/2022 5:27PM By Yajaira Still MD ; [facility] ZyrTEC Allergy 10 MG OR TABS 07/17/2013 - 01/01/2016 P rovider: Diagnosis: Last Documented On 07/03/2022 5:27PM By Yajaira Still MD ; [facility] busPIRone HCl 15 MG OR TABS 07/17/2013 - 01/18/2014 Provider: LUCY STILL MD Diagnosis: GENERALIZED ANXI ETY DIS Last Documented On 07/03/2022 5:27PM By Yajaira Still MD ; [facility] Modafinil 200 MG OR TABS 07/17/2013 - 01/18/2014 Provider: LUCY STILL MD Diagnosis: OBSTRUCTIVE SLEE P APNEA 2 in the morning Last Documented On 07/03/2022 5:27PM By Yajaira Still MD ; [facility] Paxil CR 37.5 MG OR TB24 07/17/2013 - 01/18/2014 Provider: LUCY TOMAS MD Diagnosis: MAJOR DEPRESSION DISORDER/RECURRENT Last Documented On 07/03/2022 5:27PM By Yajaira Still MD ; [facility] busPIRone HCl 15 MG OR TABS 01/17/2013 - 07/17/2013 Provider: LUCY STILL MD Diagnosis: GENERALIZED ANXI ETY DIS Last Documented On 07/03/2022 5:27PM By Yajaira Still MD ; [facility] Fish Oil 1200 MG OR CAPS 01/17/2013 - 12/23/2022 Provi conrad: Diagnosis: Last Documented On 12/23/2022 4:48PM By ELISEO BARCENAS ; [facility] Paxil CR 37.5 MG OR TB24 01/17/2013 - 07/17/2013 Provider: LUCY TOMAS MD Diagnosis: MAJOR DEPRESSION DISORDER/RECURRENT Last Documented On 07/03/2022 5:27PM By Yajaira Still MD ; [facility] Modafinil 200 MG OR TABS 01/17/2013 - 07/17/2013 Provider: LUCY STILL MD Diagnosis: OBSTRUCTIVE SLEE P APNEA 2 in the morning Last Documented On 07/03/2022 5:27PM By Yajaira Still MD ; [facility] Paxil CR 37.5 MG OR TB24 07/19/2012 - 01/17/2013 Provider: LUCY TOMAS MD Diagnosis: DEPRESS PSYCHOSI S-MILD Last Documented On 07/03/2022 5:27PM By Yajaira Still MD ; [facility] Lovaza 1 GM OR CAPS 07/19/2012 - 01/17/2013 Provider: Diagnosis: 3 caps at bedtime Last Documented On 07/03/2022 5:27PM By VALENTINO GOLD ; [facility] Aspirin 81 MG OR TABS 07/19/2012 - 07/17/2013 Provider : Diagnosis: Last Documented On 07/03/2022 5:27PM By VALENTINO GOLD ; [facility] Pramipexole Dihydrochloride 0.5 MG OR TABS 07/19/2012 - 07/19/2012 Provider: Diagnosis: 1 and 1/2 tabs at bedtime Last Documented On 07/03/2022 5:27PM By VALENTINO GOLD ; [facility] Potassium Citrate ER 10 MEQ (1080 MG) OR TBCR 07/20/19 13 - 07/18/2014 Provider: Diagnosis: 2 tabs every morning Last Documented On 07/03/2022 5:27PM By VALENTINO GOLD ; [facility] busPIRone HCl 15 MG OR TABS 07/19/2012 - 01/17/2013 Provider: LUCY STILL MD Diagnosis: GENERALIZED ANXI ETY DIS Last Documented On 07/03/2022 5:27PM By Yajaira Still MD ; [facility] Pramipexole Dihydrochloride 0.5 MG OR TABS 07/19/2012 - 07/17/2013 Provider: LUCY STILL MD Diagnosis: Restless Legs Syndrome 1 and 1/2 tabs at bedtime --- given by Dr. Conroy Last Documented On 07/03/2022 5:27PM By Yajaira Still MD ; [facility] Modafinil 200 MG OR TABS 07/19/2012 - 01/17/2013 Provider: LUCY STILL MD Diagnosis: OBSTRUCTIVE SLEE P APNEA 2 in the morning Last Documented On 07/03/2022 5:27PM By Yajaira Still MD ; [facility] Chlorthalidone 25 MG OR TABS 03/08/2012 - 01/01/2016 P leathader: Diagnosis: Last Documented On 07/03/2022 5:27PM By VALENTINO GOLD ; [facility] busPIRone HCl 15 MG OR TABS 03/08/2012 - 07/19/2012 Pr ovider: Diagnosis: as needed Last Documented On 07/03/2022 5:27PM By VALENTINO GOLD ; [facility] Paxil CR 37.5 MG OR TB24 03/08/2012 - 07/19/2012 Provi conrad: Diagnosis: Last Documented On 07/03/2022 5:27PM By VALENTINO GOLD ; [facility] Crestor 10 MG OR TABS 03/08/2012 - 12/19/2019 Provider : Diagnosis: Last Documented On 07/03/2022 5:27PM By VALENTINO GOLD ; [facility] Modafinil 200 MG OR TABS 03/08/2012 - 07/19/2012 Provi conrad: Diagnosis: 1 and 1 half in the morning Last Documented On 07/03/2022 5:27PM By VALENTINO GOLD ; [facility] Niaspan 500 MG OR TBCR 03/08/2012 - 01/17/2013 Provide r: Diagnosis: Last Documented On 07/03/2022 5:27PM By VALENTINO GOLD ; [facility] Medications Administered Includes: Administered Medications in patient's chart No Administered Medications Recorded Vital Signs Includes: Vital Signs from 06/14/2023 through 06/13/2024 Vital Name 06/21/2023 04:58P Blood Pressure Sitting L 108/72 BP Cuff Size Regular Pulse Rate-Sitting (bpm) 86 Pulse Rhythm Regular Height (in) 67.5 Weight (lb) 176 Body Mass Index 27.2 Body Surface Area 1.9 Note: self reported vitals Last Documented: On 06/21/2023 4:59PM ; [facility] Results Includes: Results from 06/14/2023 through 06/13/2024 No Results Recorded For Specified Dates History of Present Illness History of Present Illness not supported for this document type No History of Present Illness Recorded Social History Description Last Updated Tobacco non-user 06/21/2023 Last Documented On 8:45PM ; [facility] Smoking Status Unknown Procedures and Surgical History Includes: Procedures from 06/14/2023 through 06/13/2024 Procedures Code Diagnosis Performing Provider Service Location Service Date PSYCHOTHERAPY 30 MIN W/ [place] [address] Major depressive disorder, recurrent, moderate, Generalized anxiety disorder, Restless legs syndrome, Narcolepsy without cataplexy LUCY STILL MD [facility]-PSY 06/21/2023 Last Documented On 4 4:04PM ; [facility] Medical History Includes: Medical History in patient's [...] [place] Note: Imported from external source. Cipro Allergy 12/20/2018 Active Last Documented On 06/21/2023 4:56PM ; [facility] Note: Imported from external source. Cipro Allergy Hives / Urticaria 12/20/2018 R esolved Last Documented On 3 4:47PM ; [facility] Aspartame Allergy Skin Rashes / Eruption of skin 06/29/2018 Active Last Documented On 06/21/2023 4:56PM ; [facility] Note: Imported from external source. Encounters Includes: Encounters from 06/14/2023 through 06/13/2024 Encounter Provider Location Date Check-In Time Check-Out Time Diagnosis [facility] ESTABLISHED LUCY STILL MD [facility]-PS[facility] 06/21/19 24 4:45PM 01/19/2012 11:59PM Major Depression, Recurrent,Gene ralized Anxiety Disorder,Obses sive Compulsive Disorder,Narco lepsy,Restless Legs Syndrome,Nonor ganic Sleep Apnea Obstructive Insurance Includes: Active Insurance Policies Plan Name Member ID Group # Subscriber Relationship Effect refugio Dates 1 - [facility] [id number] MARYAM MUNOZ 03/10/2020 - Unknown Clinical Notes Includes: Signed Clinical Notes starting from 03/26/2022 * Progress note Date Encounter Last Documented by 06/21/2023 TELEHEALTH ADULT PSYCH ESTABLISH ED Last documented on 07/11/2023; 8:45 PM, LUCY STILL MD; [facility] Top of Document [...] planning to go for a trip to [place] and [place]. Once they landed in [place] last 03/26/2023 he felt sick and was [...] Primary Care Provider: Dr. Nicola Lee -- [place] Dr. Sukhdev Lujan -- Neurologist Dr. Rafita Salguero/Dr. Víctor Pichardo -Urologist -- [facility] Dr. Stephan Osuna -- Ophthamologist. Dr. Ron Richards -- Mixing Machine Feeder Diagnoses: mosquito-like bites or red spots on [...] -- 09/2014, another lithotripsy done 12/17/16 -- [facility] (Dr. Pichardo) -- 06/2017 stones removed, 11/2017 stones removed at [facility] -- passed kidney stone at home 11/2018. Overactive bladder - and urge to urinate -- given Myrbetriq 25 mg and given Tamsulosin 0.4 mg 04/30/22 and 02/01/22. Hyperlipidemia. Diabetes mellitus. Contact dermatitis -- he took a steroid, antibiotic, benadryl. Arthritis - right hand -- appointment with Dr. Eduard Bañuelos [facility]. Restless legs syndrome. Narcolepsy --Dr. Conroy added Adderall 11/2014. Allergic reaction - unknown origin -- hospitalized at [facility] 09/27/20 -- given Epipen and [...] treated at [facility] by Dr. Radames Boyer from [id number]. PREVIOUS PSYCHIATRIC TREATMENT: Dr. Radames Boyer from [id number]. PREVIOUS PSYCHIATRIC MEDICATIONS: Anafranil-caused weight gain Prozac, which he took for 2 years. These were given by Dr. Radames Boyer from [place]. Social History Tobacco use: Tobacco non-user. Caffeine use: No coffee consumption -- He drinks 1 can of diet soda and 1 glass of tea a day. Tobacco use: Smoking status: Never smoker. Alcohol: Not using alcohol. Drug Use: Not using drugs (Illicit). 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 Marital: Marital history -- . He [...] Clinical summary provided to patient. * Call [phone] and /or go to the nearest emergency [...] now sees a different sleep specialist in [place], [place] Dr. Lujan -- Modafinil 200 mg [...]
[2024-06-13 18:55] VITALS: BP 130/97; PULSE 115; RESP 14; O2SAT 94
[2024-06-13 20:03] VITALS: BP 125/84; PULSE 104; RESP 16; O2SAT 94
--- NOTE | 2024-06-13 21:34 | PC.NURSE ---
Pharmacy called for medication to be tubed to bedside.
[2024-06-13] MEDS: PRAMIPEXOLE 0.5 MG TABLET 1.5 MG PO (21:49)
[2024-06-13 21:50] VITALS: BP 109/75; PULSE 107; RESP 14; O2SAT 93
[2024-06-13 22:00] LABS: Add Urine Microscopic? NO; Appearance Urine Clear (Clear); Bilirubin Urine Negative (Negative); Blood Urine Negative (Negative); Color Urine Yellow (Yellow); Glucose Urine UA Trace mg/dL (Negative); Ketones Urine 1+ mg/dL (Negative); Leukocyte Esterase Ur Negative LEU/UL (Negative); Nitrate Urine Negative (Negative); Protein Urine Negative (Negative); Specific Grav Ur > 1.045 (1.001-1.035); Urobilinogen Urine 0.2 mg/dL (<2.0); pH Urine 5.5 (5.0-9.0)
[2024-06-13 22:23] LABS: Toxigenic C. Diff NEGATIVE (NEGATIVE)
[2024-06-13 23:17] VITALS: BP 104/73; PULSE 109; RESP 18; O2SAT 94
[2024-06-14 00:45] VITALS: BP 129/95; PULSE 88; RESP 18; O2SAT 95
== END 2024-06-14 00:46 | disposition home or self-care (01) ==
PROVIDERS: Emergency Medicine; Emergency Provider Emergency Medicine; PCP Family Medicine
DX: R19.7 Diarrhea, unspecified (principal); E87.6 Hypokalemia; G25.81 Restless legs syndrome; E11.9 Type 2 diabetes mellitus without complications; E78.5 Hyperlipidemia, unspecified
CPT/HCPCS: 36415; 74018; 74177; 80053; 81003; 85025; 87045; 87427; 87449; 87493; 89055; 96361; 96374; 96375; 99284; A9270; J2405; J7030; Q9967

== ENCOUNTER 2024-07-10 12:54 | Outpatient (CLI) | payer OTHER, SELFPAY ==
--- NOTE | ~2024-07-10 | XR_ITS ---
XR abdomen/kub 1V Ordering provider: Rafiat Salguero MD History: . Lt ureteral stone . Comparison: None. FINDINGS: BOWEL: Nonobstructive bowel gas pattern. ORGANOMEGALY: None. SIGNIFICANT PATHOLOGIC CALCIFICATIONS: Tiny stone in the left kidney area. OTHER: No free air is seen under the diaphragm. IMPRESSION: NO ACUTE ABDOMINAL FINDINGS. Tiny stone in the left kidney area. Reviewed, dictated and finalized at location A.
--- OUTSIDE RECORDS SUMMARY | 2024-07-10 13:11 | XMS_ITS | Referral Summary ---
Author Organization [facility] Address [address] [place] [address] Care Team Providers Care Alcoholic Counselor Name Role Phone Giorgio Lee MD Primary Care Provider [phone] [phone] Allergies Active Allergy Reactions Criticality Noted Date [...] a meal 0 0 6 Active omega 2-vyz-gpk-fish oil (FISH OIL) 360-1,200 mg capsule,delayed release(DR/EC) [...] (06/13/2018): Added automatically from request for surgery [id number] Overweight (BMI 25.0-29.9) 10/22/2016 Hay fever 01/26/2016 [...] on file Legal Sex Male 11:57 PM SCHOOL OFFICE ASSISTANT Gender Identity Male 01/13/2019 7:57 PM SCHOOL OFFICE ASSISTANT Sexual Orientation Straight 01/13/2019 7: 57 PM SCHOOL OFFICE ASSISTANT Last Filed Vital Signs Vital Sign [...] LIPID PANEL Routine 04/07/2013 8:4 5 PM SCHOOL OFFICE ASSISTANT from Last 3 Months or Most [...] Male Attending MD: Ramo Meza M.D. Room: [facility] ENDOSCOPY ROOM 1 Note Status: Finalized Patient [...] passed under direct vision.The Pediatric Colonoscope PCF-H190L [id number] was introduced through the anus and advanced [...] 9:02 AM Procedure Code(s): --- Professional --- 22085, Colonoscopy, flexible; with biopsy, single or multiple Diagnosis Code(s): --- Professional --- Z80.0, Family history of malignant neoplasm of digestive organs Z86.010, Personal history of colonic polyps K64.8, Other hemorrhoids D12.5, Benign neoplasm of sigmoid colon K57.30, Diverticulosis of large intestine without perforation orabscess without bleeding CPT copyright 2017 [employer]. All rights reserved. The codes documented in this report are preliminary and upon remote inpatient coder reviewmay be revised to meet current compliance requirements. Recognized by the [place] for promoting quality in endoscopy Ramo Meza MD ENDOSCOPY PROCEDURES Final Result * eGFR (12/12/2016 11:06 AM CDT) eGFR >60 mL/min/1.7 3 m2 [facility] Comment: Interpretive Data Reference Interval Normal >/= 90 mL/min/1.73m2 Mildly decreased* 60 - 89 mL/min/1.73m2 Mildly to moderately decreased 45 - 59 mL/min/1.73m2 Moderately to severely decreased 30 - 44 mL/min/1.73m2 Severely decreased 15 - 29 mL/min/1.73m2 Kidney Failure < 15 mL/min/1.73m2 *Relative to young adult level If -Maldivian multiply value by 1.16. Estimated glomerular filtration [...] BLOOD ORDERABLES Final Resul t [facility]) [facility] Department of Laboratories [place], [place] [id number] * (ABNORMAL) Serum lipid panel (04/07/2013 8:45 PM SCHOOL OFFICE ASSISTANT) LDL 54 0 - 129 mg/dl [...] revised on 2007. Serum 04/07/2013 8:45 PM SCHOOL OFFICE ASSISTANT Edgar Pratt MD LAB BLOOD ORDERABLES Final Resul t HISTORICAL RESULTS from Last 3 Months or Most Recently Relevant to Health Maintenance Insurance [facility] Care Teams Alcoholic Counselor Relationship Specialty Start Date End Date Giorgio Lee MD PCP - General 06/04/16
--- OUTSIDE RECORDS SUMMARY | 2024-07-10 13:11 | XMS_ITS | Encounter Summary ---
Author Organization [facility] Address [address] [place] [address] Care Team Providers Care Autocad Name Role Phone Giorgio Lee MD Primary Care Provider [phone] [phone] Giorgio Lee MD Primary Care Provider [phone] [phone] Giorgio Lee MD Primary Care Provider [phone] [phone] Encounter Details Date Type Department Care Team (Late st Contact Info) Description 04/24/2012 Orders Only [facility] Health Information Management [address] [place] [address] Scanning, Provider Social History Tobacco Use Types Packs/Day Years Used Date Smoking Tobacco: Never Assessed Sex and Gender Information Value Date Recorded Sex Assigned at Not on file Legal Sex Male 11:57 PM GUIDANCE SECRETARY Gender Identity Male 01/13/2019 7:57 PM GUIDANCE SECRETARY Sexual Orientation Straight 01/13/2019 7: 57 PM GUIDANCE SECRETARY documented as of this encounter Plan of [...] on filedocumented in this encounter Care Teams Autocad Relationship Specialty Start Date End Date Giorgio Lee MD PCP - General 06/04/16 Giorgio Lee MD PCP - General 01/14/14 06/03/16 Giorgio Lee MD PCP - General 10/03/09 01/13/14 documented as of this encounter
--- OUTSIDE RECORDS SUMMARY | 2024-07-10 13:11 | XMS_ITS | Clinical Summary ---
Author Organization [facility] Address [address] [place] [address] Care Team Providers Care Countersinker Name Role Phone Giorgio Lee MD Primary Care Provider [phone]- [phone] Allergies Active Allergy Reactions Criticality Noted Date [...] Day Supply 20 tablet 02/22/2021 Active Immunizations Immunization Administration Dates Next Due PFIZER COVID-19 (ORIGINAL [...] Comments Blood Pressure 121/78 02/22/2021 12:30 AM MUCK HAULER Pulse 77 02/22/2021 1:00 AM MUCK HAULER Temperature 36.9 C (98.4 F) 02/21/2021 9:27 PM MUCK HAULER Respiratory Rate 15 02/22/2021 1:00 AM MUCK HAULER Oxygen Saturation 99% 02/22/2021 1:00 AM MUCK HAULER Inhaled Oxygen Concentration - - Weight - - Height 172.7 cm (5' 8 ) 02/21/2021 9:27 PM MUCK HAULER Body Mass Index - - Plan of Treatment Health Maintenance Due Date Last Done Comments Colorectal Cancer Screening Colonoscopy (10 Years) 1965 Annual Physical 09/26/1966 Hepatitis C 09/26/1981 Zoster Vaccines (1 of 2) 09/26/2013 DTaP, Tdap and Td Vaccines (2 - Td or Tdap) 09/14/2016 09/14/2006 Pneumococcal Vaccine: 50+ Years (2 of 2 - PCV) 12/13/2019 12/12/2018, 03/27/2012 COVID-19 Vaccine ( season) 2023 07/12/2021, 12/13/2020, 05/31/2020, Additional history exists RSV Immunization or 60+ Years (1 - 1-dose 75+ series) 09/26/2038 Meningococcal B Vaccine Aged Out No l onger eligible based on patient's age to complete this topic Meningococcal Vaccine Aged Out No raimundo baljit eligible based on patient's age to complete this topic RSV Immunizations Under 20 Months Aged Out No longer eligible based on patient's age to complete this topic Insurance [facility] Care Teams Countersinker Relationship Specialty Start Date End Date Giorgio Lee MD PCP - General FAMILY PRACTICE 12/18/20
--- OUTSIDE RECORDS SUMMARY | 2024-07-10 13:11 | XMS_ITS | Encounter Summary ---
Author Organization [facility] Address [address] [place] [address] Care Team Providers Care Jewelry Coater Name Role Phone Giorgio Lee MD Primary Care Provider [phone] [phone] Giorgio Lee MD Primary Care Provider [phone] [phone] Giorgio Lee MD Primary Care Provider [phone] [phone] Encounter Details Date Type Department Care Team (Late st Contact Info) Description 04/26/2011 Orders Only [facility] Health Information Management [address] [place] [address] Scanning, Provider Social History Tobacco Use Types Packs/Day Years Used Date Smoking Tobacco: Never Assessed Sex and Gender Information Value Date Recorded Sex Assigned at Not on file Legal Sex Male 11:57 PM DRUM OPERATOR Gender Identity Male 01/13/2019 7:57 PM DRUM OPERATOR Sexual Orientation Straight 01/13/2019 7: 57 PM DRUM OPERATOR documented as of this encounter Plan [...] on filedocumented in this encounter Care Teams Jewelry Coater Relationship Specialty Start Date End Date Giorgio Lee MD PCP - General 06/04/16 Giorigo Lee MD PCP - General 01/14/14 06/03/16 Giorgio Lee MD PCP - General 10/03/09 01/13/14 documented as of this encounter
--- OUTSIDE RECORDS SUMMARY | 2024-07-10 13:11 | XMS_ITS | Clinical Summary ---
Author Organization [facility] Office Building B Address [address] [place] [address] Care Team Providers Care Pharmacy Sales Assistant Name Role Phone Giorgio Lee MD Primary Care Provider [phone] [phone] Allergies Active Allergy Reactions Criticality Noted Date [...] a meal 0 0 6 Active omega 8-zpv-uhy-fish oil (FISH OIL) 360-1,200 mg capsule,delayed release(DR/EC) [...] (06/13/2018): Added automatically from request for surgery [id number] Overweight (BMI 25.0-29.9) 10/22/2016 Hay fever 01/26/2016 [...] on file Legal Sex Male 11:57 PM FANCY PACKER Gender Identity Male 01/13/2019 7:57 PM FANCY PACKER Sexual Orientation Straight 01/13/2019 7: 57 PM FANCY PACKER Obstetrics History Last Filed Vital Signs Vital [...] LIPID PANEL Routine 04/07/2013 8:4 5 PM FANCY PACKER from Last 3 Months or Most Recently Relevant to Health Maintenance Results * COLONOSCOPY (07/28/2018 9:02 AM CDT) Anatomical Region Laterality Modality Other Narrative Procedure Note Ramo Meza MD - 07/28/2018 9:02 AM CDT [facility] Patient Name: Chuy Mitchell Procedure Date: 07/28/2018 9:02 AM Date of : 1965 Admit Type: Outpatient Age: 52 Gender: Male Attending MD: Ramo Meza M.D. Room: [facility] ENDOSCOPY ROOM 1 Note Status: Finalized [...] colonoscopy in 3 - 5 years [facility]. - Continue present medications. Medicines: Monitored Anesthesia [...] passed under direct vision.The Pediatric Colonoscope PCF-H190L [id number] was introduced through the anus and advanced [...] 9:02 AM Procedure Code(s): --- Professional --- 06775, Colonoscopy, flexible; with biopsy, single or multiple Diagnosis Code(s): --- Professional --- Z80.0, Family history of malignant neoplasm of digestive organs Z86.010, Personal history of colonic polyps K64.8, Other hemorrhoids D12.5, Benign neoplasm of sigmoid colon K57.30, Diverticulosis of large intestine without perforation orabscess without bleeding CPT copyright 2017 [employer]. All rights reserved. The codes documented in this report are preliminary and upon kickboxing instructor reviewmay be revised to meet current compliance requirements. Recognized by the [place] [employer] for promoting quality [...] mL/min/1.73m2 *Relative to young adult level If -Liberian multiply value by 1.16. Estimated glomerular filtration [...] ORDERABLES Final Resul t [facility] [place]) [address] [facility] Department of Laboratories [place], [place] [id number] * (ABNORMAL) Serum lipid panel (04/07/2013 8:45 PM FANCY PACKER) LDL 54 0 - 129 mg/dl HISTORICAL [...] revised on 2007. Serum 04/07/2013 8:45 PM FANCY PACKER us Edgar Pratt MD LAB BLOOD ORDERABLES Final Resul t HISTORICAL RESULTS from Last 3 Months or Most Recently Relevant to Health Maintenance Insurance [facility] Address: [address] [place] [address] [facility]/PPO Address: [id number] [place], [place] [id number] [facility]/PPO Address: [facility] [address] [place] [id number] Care Teams Pharmacy Sales Assistant Relationship Specialty Start Date End Date Giorgio Lee MD PCP - General 06/04/16
== END 2024-07-10 12:55 | disposition home or self-care (01) ==
LOC: ANHIMG 12:57
PROVIDERS: PCP Family Medicine; Visit Provider Urology
DX: N20.0 Calculus of kidney (principal)
CPT/HCPCS: 74018

== ENCOUNTER 2024-10-31 08:09 | Outpatient (CLI) | payer OTHER, SELFPAY ==
--- NOTE | ~2024-10-31 | XR_ITS ---
XR thoracic spine 2V 10/31/2024 08:39 Indication: Back pain Procedure: 3 views thoracic spine Comparison: No prior studies for comparison. Findings: Mild dextrocurvature of the thoracic spine. Vertebral body heights are maintained. No paraspinal soft tissue abnormality. No acute fracture or traumatic malalignment. Surrounding osseous structures are unremarkable. Impression: 1: Mild dextrocurvature of the thoracic spine centered at T5. Reviewed, dictated and finalized at location O. Impression: 1: Mild dextrocurvature of the thoracic spine centered at T5.
--- NOTE | ~2024-10-31 | XR_ITS ---
XR lumbar spine min 4V 10/31/2024 08:39 Indication: Back pain Procedure: 5 views lumbar spine Comparison: No prior studies for comparison. Findings: There is disc narrowing at L4-5 and L5-S1. There is facet hypertrophy at these levels. No evidence for listhesis. No acute fracture or traumatic malalignment. Sacral foramen are symmetric. Pedicles intact. There are calcified granulomas of the spleen. There are right renal stones. There are c holecystectomy clips. Impression: 1: Mild-moderate lower lumbar spondylosis at L4-5 and L5-S1. 2: Right nephrolithiasis. Reviewed, dictated and finalized at location O. Impression: 1: Mild-moderate lower lumbar spondylosis at L4-5 and L5-S1. 2: Right nephrolithiasis.
--- OUTSIDE RECORDS SUMMARY | 2024-10-31 08:12 | XMS_ITS | Encounter Summary ---
Author Organization [facility] Address [address] [place] [address] Care Team Providers Care Perianesthesia Nurse Name Role Phone Giorgio Lee MD Primary Care Provider [phone] Giorgio Lee MD Primary Care Provider [phone] Giorgio Lee MD Primary Care Provider [phone] Encounter Details Date Type Department Care Team (Late st Contact Info) Description 04/26/2011 Orders Only [facility] Information Management [address] [place] [address] Scanning, Provider Social History Tobacco Use Types Packs/Day Years Used Date Smoking Tobacco: Never Assessed Sex and Gender Information Value Date Recorded Sex Assigned at Not on file Legal Sex Male 11:57 PM JAIL KEEPER Gender Identity Male 01/13/2019 7:57 PM JAIL KEEPER Sexual Orientation Straight 01/13/2019 7: 57 PM JAIL KEEPER documented as of this encounter Plan of [...] on filedocumented in this encounter Care Teams Perianesthesia Nurse Relationship Specialty Start Date End Date Giorgio Lee MD PCP - General 06/04/16 Giorgio Lee MD PCP - General 01/14/14 06/03/16 iGorgio Lee MD PCP - General 10/03/09 01/13/14 documented as of this encounter
--- OUTSIDE RECORDS SUMMARY | 2024-10-31 08:12 | XMS_ITS | Encounter Summary ---
Author Organization [facility] Address [address] [place] [address] Care Team Providers Care Energy Management Specialist Name Role Phone Giorgio Lee MD Primary Care Provider [phone] Giorgio Lee MD Primary Care Provider [phone] Giorgio Lee MD Primary Care Provider [phone] Encounter Details Date Type Department Care Team (Late st Contact Info) Description 04/24/2012 Orders Only [facility] Health Information Management [address] [place] [address] Scanning, Provider Social History Tobacco Use Types Packs/Day Years Used Date Smoking Tobacco: Never Assessed Sex and Gender Information Value Date Recorded Sex Assigned at Not on file Legal Sex Male 11:57 PM MOTOR POWER CONNECTOR Gender Identity Male 01/13/2019 7:57 PM MOTOR POWER CONNECTOR Sexual Orientation Straight 01/13/2019 7: 57 PM MOTOR POWER CONNECTOR documented as of this encounter Plan of [...] on filedocumented in this encounter Care Teams Energy Management Specialist Relationship Specialty Start Date End Date Giorgio Lee MD PCP - General 06/04/16 Giorgio Lee MD PCP - General 01/14/14 06/03/16 Giorgio Lee MD PCP - General 10/03/09 01/13/14 documented as of this encounter
--- OUTSIDE RECORDS SUMMARY | 2024-10-31 08:12 | XMS_ITS | Clinical Summary ---
Author Organization [facility] Medical Office Building [address] Address [address] [place] [address] Care Team Providers Care Nursing Information Systems Coordinator Name Role Phone Giorgio Lee MD Primary Care Provider [phone] Allergies Active Allergy Reactions Criticality Noted Date [...] a meal 0 0 6 Active omega 9-oup-plo-fish oil (FISH OIL) 360-1,200 mg capsule,delayed release(DR/EC) [...] (06/13/2018): Added automatically from request for surgery [id number] Overweight (BMI 25.0-29.9) 10/22/2016 Hay fever 01/26/2016 [...] Kidney stone Hyperlipidemia Type 2 diabetes mellitus Restless legs syndrome (RLS) Colon polyp OCD [...] on file Legal Sex Male 11:57 PM TOWBOAT ENGINEER Gender Identity Male 01/13/2019 7:57 PM TOWBOAT ENGINEER Sexual Orientation Straight 01/13/2019 7: 57 PM TOWBOAT ENGINEER Obstetrics History Last Filed Vital Signs Vital [...] P M CDT Height 172.7 cm (5' 8) 12/31/2020 1:17 PM CDT Body Mass Index [...] 07/12/2021, Additional history exists Influenza Vaccine (#1) 2024 , 11/12/2021, 12/13/2020, Additional history exists Colon Cancer [...] LIPID PANEL Routine 04/07/2013 8:4 5 PM TOWBOAT ENGINEER from Last 3 Months or Most Recently Relevant to Health Maintenance Results * COLONOSCOPY (07/28/2018 9:02 AM CDT) Anatomical Region Laterality Modality Other Narrative Procedure Note Ramo Meza MD - 07/28/2018 9:02 AM CDT [facility] Patient Name: Chuy Mitchell Procedure Date: 07/28/2018 9:02 AM Date of : 1965 Admit Type: Outpatient Age: 52 Gender: Male Attending MD: Ramo Meza M.D. Room: [facility] RO[facility] 1 Note Status: Finalized Patient [...] [facility] colon[facility] in 3 - [facility] - Continue present medications. Medicines: Monitored Anesthesia [...] passed under direct vision.The Pediatric Colonoscope PCF-H190L [id number] was introduced through the anus and advanced [...] 9:02 AM Procedure Code(s): --- Professional --- 32193, Colonoscopy, flexible; with biopsy, single or multiple Diagnosis Code(s): --- Professional --- Z80.0, Family history of malignant neoplasm of digestive organs Z86.010, Personal history of colonic polyps K64.8, Other hemorrhoids D12.5, Benign neoplasm of sigmoid colon K57.30, Diverticulosis of large intestine without perforation orabscess without bleeding CPT copyright 2017 [employer]. All rights reserved. The codes documented in this report are preliminary and upon cream cheese maker reviewmay be revised to meet current compliance requirements. Recognized by the [employer] for promoting quality [...] mL/min/1.73m2 *Relative to young adult level If -Eth[place]ian multiply value by 1.16. Estimated glomerular filtration [...] CDT 12/12/2016 11:13 AM CDT us Eileen Torressaulvolodymyr LAB BLOOD ORDERABLES Final Resul t Performing Organization Address City/State/[facility] Co de Phone Number [id number] ([place]) [address] [facility] Department [place] [address] * (ABNORMAL) Serum lipid panel (04/07/2013 8:45 PM TOWBOAT ENGINEER) LDL 54 0 - 129 mg/dl HISTORICAL [...] revised on 2007. Serum 04/07/2013 8:45 PM TOWBOAT ENGINEER Edgar Pratt MD LAB BLOOD ORDERABLES Final Resul t HISTORICAL RESULTS from Last 3 Months or Most Recently Relevant to Health Maintenance Insurance [facility] [employer] [facility] [employer] [facility] [employer] Care Teams Nursing Information Systems Coordinator Relationship Specialty Start Date End Date Giorgio Lee MD PCP - General 06/04/16
== END 2024-10-31 08:10 | disposition home or self-care (01) ==
PROVIDERS: PCP Family Medicine; Visit Provider Family Medicine
DX: M54.9 Dorsalgia, unspecified (principal)
CPT/HCPCS: 72070; 72110

== ENCOUNTER 2024-11-14 10:55 | Outpatient (CLI) | payer OTHER, SELFPAY ==
--- NOTE | ~2024-11-14 | MR_ITS ---
EXAMINATION: MR thoracic spine wo con DATE: 11/14/2024 11:35 INDICATION: Right-sided T11 radicular pain TECHNIQUE: Magnetic resonance imaging (MRI) of the thoracic spine was performed without intravenous contrast. Sagittal localizer T1-weighted FSE of the cervicothoracic spine was obtained. Thoracic spine sequences included sagittal T2-weighted FSE, sagittal T1-weighted SE, Sagittal T2-weighted FS FSE, and axial T2-weighted FSE. COMPARISON: None FINDINGS: 10 degrees mid thoracic dextrocurvature. Sagittal alignment is normal. Vertebral body heights are normal. Mild to moderate disc height loss with degenerative endplate changes and disc bulges contributing to mild central canal stenosis at at C4-C5 and C5-C6. Normal marrow signal. Thoracic disc heights are normal. Small central disc protrusion at T5-T6 and very small left paracentral disc protrusion at T7-T8, each contributing to minimal central canal stenosis. There is normal spinal cord signal. The conus terminates at L1. 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 There are a few T2 hyperintense left renal cysts the larger measuring 2.2 cm. Paravertebral soft tissues are unremarkable. IMPRESSION: 1. 10 degrees thoracic dextrocurvature with minimal spondylosis. Reviewed, dictated and finalized at location A.
== END 2024-11-14 10:56 | disposition home or self-care (01) ==
LOC: GOSHIMG 10:55
PROVIDERS: PCP Family Medicine; Visit Provider Family Medicine
DX: M54.10 Radiculopathy, site unspecified (principal)
CPT/HCPCS: 72146